=== PATIENT | female | born 1945 | race Caucasian/White ===

== ENCOUNTER 2021-01-21 14:37 | Inpatient (IN) | payer MEDICARE ==
--- NOTE | 2021-01-21 15:14 | ED ---
Chest Pain HPI - General Chief Complaint: Chest Pain Stated Complaint: chest pain Time Seen by Provider: 01/21/21 14:39 Source: patient, EMS Mode of arrival: EMS Limitations: no limitations - History of Present Illness Initial Comments: Patient complains of chest pain. Pain is in the middle of the chest. It radiates the left side and left arm. She has no shortness of breath. She has no palpitations. She wasn't doing this began. She denies any sick contacts or travel. She has no focal weakness. She has no swelling in the arms or legs. She has no lightheadedness or dizziness. - Related Data Allergies Allergy/AdvReac Type Severity Reaction Status Date / Time No Known Allergies Allergy Verified 01/21/21 14:58 Review of Systems ROS Statement: Those systems with pertinent positive or pertinent negative responses have been documented in the HPI. ROS Other: All systems not noted in ROS Statement are negative. EKG Findings - EKG Comments: EKG Findings:: Twelve-lead EKG shows ventricular rate 81 bpm, normal FL interval and QRS complexes, no ST elevation or depression, interpreted by me as normal sinus rhythm. Past Medical History Past Medical History: Cancer Additional Past Medical History / Comment(s): Colostomy bag with removal History of Any Multi-Drug Resistant Organisms: None Reported Past Surgical History: Breast Surgery, Cholecystectomy, Orthopedic Surgery Past Psychological History: No Psychological Hx Reported Smoking Status: Never smoker Past Alcohol Use History: None Reported General Exam Limitations: no limitations General appearance: alert, in no apparent distress Head exam: Present: atraumatic, normocephalic, normal inspection Eye exam: Present: normal appearance, PERRL, EOMI. Absent: scleral icterus, conjunctival injection, periorbital swelling ENT exam: Present: normal exam, mucous membranes moist Neck exam: Present: normal inspection. Absent: tenderness, meningismus, lymphadenopathy Respiratory exam: Present: normal lung sounds bilaterally. Absent: respiratory distress, wheezes, rales, rhonchi, stridor Cardiovascular Exam: Present: regular rate, normal rhythm, normal heart sounds. Absent: systolic murmur, diastolic murmur, rubs, gallop, clicks GI/Abdominal exam: Present: soft, normal bowel sounds. Absent: distended, tenderness, guarding, rebound, rigid Extremities exam: Present: normal inspection, full ROM, normal capillary refill. Absent: tenderness, pedal edema, joint swelling, calf tenderness Back exam: Present: normal inspection Neurological exam: Present: alert, oriented X3, CN II-XII intact Psychiatric exam: Present: normal affect, normal mood Skin exam: Present: warm, dry, intact, normal color. Absent: rash Course Vital Signs 01/21/21 14:46 Temperature 98.2 F Pulse Rate 79 Respiratory 18 Rate Blood Pressure 139/68 O2 Sat by Pulse 96 Oximetry Chest Pain MDM - Core Measures AMI Core Measures Followed: Yes - MDM Patient presents with chest pain. She does have an elevated troponin. I will order IV heparin. I consult to cardiology. She will be admitted to the hospital. Critical Care Time Critical Care Time: Yes Total Critical Care Time: 35 Disposition Clinical Impression: Acute non-ST elevation myocardial infarction (NSTEMI) Disposition: ADMITTED IP TO THIS HOSP Condition: Fair Is patient prescribed a controlled substance at d/c from ED?: No Referrals: Jerry Torre DO [Primary Care Provider] - 1-2 days
[2021-01-21 15:17] LABS: Basophils % (A) 0 %; Eosinophils # (A) 0.1 k/uL (0-0.7); Eosinophils % (A) 1 %; HGB 12.3 gm/dL (11.4-16.0); Lymphocytes # (A) 0.9 k/uL (1.0-4.8); Lymphocytes % (A) 19 %; MCH 28.7 pg (25.0-35.0); MCHC 35.2 g/dL (31.0-37.0); MCV 81.5 fL (80.0-100.0); Mean Platelet Volume 7.7; Monocytes # (A) 0.4 k/uL (0-1.0); Monocytes % (A) 9 %; Neutrophils # (A) 3.2 k/uL (1.3-7.7); Neutrophils % (A) 68 %; Platelet Count 184 k/uL (150-450); RBC 4.29 m/uL (3.80-5.40); RDW 12.4 % (11.5-15.5); WBC 4.7 k/uL (3.8-10.6)
[2021-01-21 15:25] LABS: Albumin 3.7 g/dL (3.5-5.0); Calcium 9.4 mg/dL (8.4-10.2); Magnesium 2.1 mg/dL (1.6-2.3); Potassium 4.1 mmol/L (3.5-5.1); Total Bilirubin 0.5 mg/dL (0.2-1.3); Total Protein 6.3 g/dL (6.3-8.2)
[2021-01-21 15:36] LABS: Prothrombin Time 10.3 sec (9.0-12.0)
[2021-01-21] MEDS ORDERED: HEPARIN SODIUM 1,000 UN/ML (10ML VL) IV ONE (15:56)
[2021-01-21] MEDS ORDERED: HEPARIN SODIUM 1,000 UN/ML (10ML VL) IV PRN (15:56)
[2021-01-21] MEDS ORDERED: LORazepam 2 MG/ML INJ IV PRN (15:57)
[2021-01-21] MEDS ORDERED: TEMAZEPAM 15 MG CAP PO PRN (15:57)
[2021-01-21] MEDS ORDERED: ONDANSETRON 4 MG/2 ML VIAL IVP PRN (15:57)
[2021-01-21] MEDS ORDERED: NALOXONE 0.4 MG/ML 1 ML VIAL IV PRN (15:57)
--- NOTE | 2021-01-21 15:59 | XR ---
EXAMINATION TYPE: XR chest 2V DATE OF EXAM: 01/21/2021 COMPARISON: None HISTORY: 75-year-old female with chest pain TECHNIQUE: PA and lateral views FINDINGS: Heart normal size. Atherosclerotic arch calcifications. Mild interstitial prominence has a chronic ap pearance. No consolidation or pleural effusion. IMPRESSION: Chronic appearing changes. No definite acute process.
[2021-01-21 16:09] LABS: Partial Thromboplastin Time 20.5 sec (22.0-30.0)
[2021-01-21] MEDS: HEPARIN SOD,PORK IN 0.45% NACL 25,000 UNIT in 0.45% NACL 1 250ML.BAG IV SCH (16:38)
[2021-01-21] MEDS: NITROGLYCERIN SL TABS 0.4 MG TAB SUBLINGUAL PRN ×3 (18:30→19:50)
[2021-01-21] MEDS ORDERED: MELATONIN 5 MG TABLET PO PRN (19:14)
[2021-01-21] MEDS: METOPROLOL TARTRATE 25 MG TAB PO SCH (19:57)
[2021-01-21] MEDS: amLODIPine 5 MG TAB PO SCH (19:57)
[2021-01-21] MEDS: FAMOTIDINE 20 MG/2 ML VIAL IV SCH (19:57)
[2021-01-21] MEDS: MORPHINE SULFATE 4 MG/ML SYRINGE IV PRN (19:58)
[2021-01-21] MEDS ORDERED: ACETAMINOPHEN TAB 325 MG TAB PO PRN (20:01)
[2021-01-21] MEDS: NITROGLYCERIN-D5W PMX 50 MG in DEXTROSE/WATER 1 250ML.BAG IV SCH (20:07)
[2021-01-21] MEDS: ATORVASTATIN 40 MG TAB PO SCH (21:44)
[2021-01-21] MEDS: ASPIRIN 81 MG PO SCH (21:45)
[2021-01-21] MEDS ORDERED: AMITRIPTYLINE HCL 10 MG TAB PO SCH (22:00)
[2021-01-22 03:53] LABS: Basophils % (A) 0 %; Eosinophils # (A) 0.1 k/uL (0-0.7); Eosinophils % (A) 2 %; HCT 33.1 % (34.0-46.0); HGB 11.2 gm/dL (11.4-16.0); Lymphocytes # (A) 1.3 k/uL (1.0-4.8); Lymphocytes % (A) 28 %; MCH 28.7 pg (25.0-35.0); MCHC 33.9 g/dL (31.0-37.0); MCV 84.6 fL (80.0-100.0); Mean Platelet Volume 7.7; Monocytes # (A) 0.4 k/uL (0-1.0); Monocytes % (A) 8 %; Neutrophils # (A) 2.7 k/uL (1.3-7.7); Neutrophils % (A) 59 %; Platelet Count 175 k/uL (150-450); RBC 3.91 m/uL (3.80-5.40); RDW 12.7 % (11.5-15.5); WBC 4.6 k/uL (3.8-10.6)
[2021-01-22 04:13] LABS: INR 0.9 (<1.2); Partial Thromboplastin Time 39.6 sec (22.0-30.0); Prothrombin Time 10.2 sec (9.0-12.0)
[2021-01-22 08:16] LABS: Potassium 4.1 mmol/L (3.5-5.1)
[2021-01-22] MEDS ORDERED: ALPRAZolam 0.5 MG TAB PO PRN (08:49)
[2021-01-22] MEDS ORDERED: ALPRAZolam 0.25 MG TAB PO PRN (08:49)
[2021-01-22] MEDS ORDERED: SODIUM CHLORIDE 0.9% 1,000 ML in EMPTY BAG 1 BAG IV ONE (08:49)
[2021-01-22] MEDS: MORPHINE SULFATE 4 MG/ML SYRINGE IV PRN ×3 (09:06→23:19)
[2021-01-22] MEDS: FAMOTIDINE 20 MG/2 ML VIAL IV SCH (09:06)
--- NOTE | 2021-01-22 09:07 | P.CRDCN ---
History of Present Illness History of present illness: HISTORY OF PRESENTING ILLNESS This is a pleasant 75-year-old female past medical history significant for hypertension, hyperlipidemia, former nicotine dependence. 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 We have been asked to see in consultation for chest pain and elevated troponin. Patient is seen and examined at bedside. She started to have chest pain 5 days ago. Located in anterior middle of chest. 01/29. Radiating to her left side rib, left arm and left shoulder. Associated shortness of breath and diaphoresis. At home she felt as if it was getting worse with food, however it did not resolve. Her chest pain has progressively gotten worse with intensity over the past 5 days and decided to present to the emergency department. Aggravating factors include activity and/or exertion. Alleviating factors include nitroglyerin. She states at this time just walking to/from the bathroom she has increased chest pain and shortness of breath with exertion. Denies nausea, vomiting, palpitations, lightheaded, dizziness, or syncope. She denies symptoms of orthopnea or PND. She is a former smoker. Denies alcohol use. She denies history of NM, stroke, diabetes, or coronary artery disease. Family history includes father had atrial fibrillation and congestive heart failure in the 70s. She states she has had a cardiac work up before including a stress test but this was many years ago, at the time she was told it was normal. On admission, patient placed on IV heparin drip, aspirin, and Nitroglycerin drip. DIAGNOSTICS EKG reveals sinus rhythm, HR 81, LBBB. EKG this morning sinus rhythm HR 80, LBBB, some ST depression in leads I, V4-V6. No prior EKG to compare. Telemetry tracings indicate sinus rhythm HR 60s Chest xray atherosclerotic aortic changes, chronic changes Laboratory reviewed, troponin 0.9, 0.6, 0.5, proBNP 3440, sodium 138, potassium 4.1, BUN 22, serum 0.03, magnesium 2.1, CBC unremarkable REVIEW OF SYSTEMS At the time of my exam: CONSTITUTIONAL: Denies fever or chills. +diaphoresis CARDIOVASCULAR: + chest pain, + shortness of breath, Denies orthopnea, PND or palpitations. RESPIRATORY: Denies cough. GASTROINTESTINAL: Denies abdominal pain, diarrhea, constipation, nausea or vomiting. MUSCULOSKELETAL: Denies myalgias. NEUROLOGIC: Denies numbness, tingling, headacbe or weakness. ENDOCRINE: Denies fatigue, weight change, polydipsia or polyurina. GENITOURINARY: Denies burning, hematuria or urgency with micturation. HEMATOLOGIC: Denies history of anemia or bleeding. PHYSICAL EXAMINATION Blood pressure 155/76 heart rate 78 afebrile and maintaining oxygen saturation on room air CONSTITUTIONAL: Currently having chest pain shortness of breath and diaphoresis HEENT: Head is normocephalic. Pupils are equal, round. Sclerae anicteric. Mucous membranes of the mouth are moist. No JVD. No carotid bruit. CHEST EXAMINATION: Lungs are clear to auscultation. No chest wall tenderness is noted on palpation or with deep breathing. HEART EXAMINATION: Regular rate and rhythm. S1, S2 heard. No murmurs, gallops or rub. ABDOMEN: Soft, nontender. Positive bowel sounds. EXTREMITIES: 2+ peripheral pulses, no lower extremity edema and no calf tenderness. SKIN: intact NEUROLOGIC EXAMINATION: Patient is awake, alert and oriented x3. ASSESSMENT NSTEMI Left bundle branch block, unclear if new or had prior. History of hypertension Hyperlipidemia Former tobacco smoker PLAN Obtain 2D echocardiogram and doppler study to assess cardiac structure and function. At this time we recommend proceeding with cardiac catheterization I have discussed the risks, benefits and alternative therapies for the above- mentioned procedure and for both sedation/analgesia as well as necessary blood product administration, if indicated, as they pertain to this patient. The p atient has indicated understanding and acceptance of the risks and procedures discussed. Questions have been answered appropriately and he is agreeable to move forward with the above-stated procedure. Spoke with patient's daughter, Deborah, and updated her on the plan per patient request Continue aspirin, statin, beta maría, and amlodipine Further recommendations based on clinical course. Nurse Practitioner note has been reviewed, I agree with a documented findings and plan of care. Patient was seen and examined. Past Medical History Past Medical History: Cancer, Hyperlipidemia, Hypertension, Osteoarthritis (OA) Additional Past Medical History / Comment(s): Colostomy bag with removal History of Any Multi-Drug Resistant Organisms: None Reported Past Surgical History: Bladder Surgery, Bowel Resection, Breast Surgery, Cholecystectomy, Hysterectomy, Orthopedic Surgery, Tubal Ligation Additional Past Surgical History / Comment(s): cataractsurgery x2 with lens implants, masectomy on right breast, bowel resection with colostomy and reversal, bladder suspension, left knee replacement, skin cancer removed from right ear Past Anesthesia/Blood Transfusion Reactions: No Reported Reaction Smoking Status: Former smoker - Past Family History Father Family Medical History: AFIB, Congestive Heart Failure (CHF) Mother Family Medical History: Cancer Additional Family Medical History / Comment(s): breast cancer with mets Medications and Allergies Home Medications Medication Instructions Recorded Confirmed Type ALPRAZolam [Xanax] 1 mg PO DAILY@0800,219901/21/21 01/21/21 History Amitriptyline HCl [Elavil] 20 mg PO HS@219901/21/21 01/21/21 History Cholecalciferol [Vitamin D3 (25 50 mcg PO DAILY@79901/21/21 01/21/21 History Mcg = 1000 Iu)] Rosuvastatin [Crestor] 20 mg PO HS@219901/21/21 01/21/21 History Sertraline [Zoloft] 100 mg PO DAILY@79901/21/21 01/21/21 History amLODIPine [Norvasc] 5 mg PO HS@219901/21/21 01/21/21 History buPROPion [Wellbutrin] 75 mg PO DAILY@79901/21/21 01/21/21 History Allergies Allergy/AdvReac Type Severity Reaction Status Date / Time No Known Allergies Allergy Verified 01/21/21 16:53 Physical Exam Vitals: Vital Signs Temp Pulse Pulse Resp BP BP Pulse Ox 01/22/21 04:00 60 15 114/58 94 L 01/22/21 00:00 98.3 F 66 17 98/54 97 01/21/21 20:30 86 149/64 01/21/21 20:00 98 19 149/64 98 01/21/21 19:55 90 16 165/66 95 01/21/21 19:41 98.2 F 95 19 192/67 97 01/21/21 18:50 95 19 124/61 96 01/21/21 18:45 98.3 F 83 18 157/73 96 01/21/21 18:40 96 19 161/69 96 01/21/21 17:45 83 18 01/21/21 16:39 78 16 132/57 96 01/21/21 16:00 75 18 96 01/21/21 15:30 148/57 95 01/21/21 15:00 72 17 139/68 96 01/21/21 14:46 98.2 F 79 18 139/68 96 01/21/21 14:45 96 Intake and Output 01/21/21 01/22/21 01/22/21 22:59 06:59 14:59 Intake Total 224.706 74.388 Balance 224.706 74.388 Intake: Intake, IV Titration 44.706 74.388 Amount Heparin Sod,Pork in 0.45% 44.706 74.388 NaCl 25,000 unit In 0.45 % NaCl 1 250ml.bag @ 12 UNITS/KG/HR 8.709 mls/hr IV .Q24H [facility] Rx#: [id number] Oral 180 Other: # Voids 2 Weight 72.575 kg Results 01/22/21 03:36 01/22/21 07:29 Cardiac Enzymes 01/21/21 01/21/21 01/21/21 Range/Units 15:06 15:06 19:00 AST 39 H (14-36) U/L Troponin I 0.967 H* 0.608 H* (0.000-0.034) ng/mL 01/21/21 Range/Units 20:56 AST (14-36) U/L Troponin I 0.536 H* (0.000-0.034) ng/mL Coagulation 01/21/21 01/21/21 01/22/21 Range/Units 15:06 20:56 03:36 PT 10.3 10.2 (9.0-12.0) sec APTT 20.5 L 31.9 H 39.6 H (22.0-30.0) sec CBC 01/21/21 01/22/21 Range/Units 15:06 03:36 WBC 4.7 4.6 (3.8-10.6) k/uL RBC 4.29 3.91 (3.80-5.40) m/uL Hgb 12.3 11.2 L (11.4-16.0) gm/dL Hct 35.0 33.1 L (34.0-46.0) % Plt Count 184 175 (150-450) k/uL Comprehensive Metabolic Panel 01/21/21 Range/Units 15:06 Sodium 138 (137-145) mmol/L Potassium 4.1 (3.5-5.1) mmol/L Chloride 109 H (98-107) mmol/L Carbon Dioxide 21 L (22-30) mmol/L BUN 22 H (7-17) mg/dL Creatinine 1.08 H (0.52-1.04) mg/dL Glucose 116 H (74-99) mg/dL Calcium 9.4 (8.4-10.2) mg/dL AST 39 H (14-36) U/L ALT 24 (4-34) U/L Alkaline Phosphatase 66 (38-126) U/L Total Protein 6.3 (6.3-8.2) g/dL Albumin 3.7 (3.5-5.0) g/dL Current Medications Generic Name Dose Route Start Last Admin Trade Name Freq PRN Reason Stop Dose Admin Acetaminophen 650 mg 01/21/21 20:01 Acetaminophen Tab 325 Mg Tab PO Q4HR PRN Fever and/ or Pain Alprazolam 1 mg 01/21/21 19:11 Alprazolam 1 Mg Tab PO DAILY@0800,2200 PRN Anxiety Amitriptyline HCl 20 mg 01/21/21 22:00 01/21/21 20:15 Amitriptyline Hcl 10 Mg Tab PO 20 mg HS@2200 JAZ Administration Amlodipine Besylate 5 mg 01/21/21 22:00 01/21/21 19:57 Amlodipine 5 Mg Tab PO 5 mg HS@2200 JAZ Administration Aspirin 81 mg 01/21/21 20:30 01/21/21 21:45 Aspirin 81 Mg PO 81 mg DAILY JAZ Administration Atorvastatin Calcium 40 mg 01/21/21 20:30 01/21/21 21:44 Atorvastatin 40 Mg Tab PO 40 mg DAILY JAZ Administration Bupropion HCl 75 mg 01/22/21 08:00 Bupropion 75 Mg Tab PO DAILY@0800 JAZ Famotidine 20 mg 01/21/21 21:00 01/21/21 19:57 Famotidine 20 Mg/2 Ml Vial IV 20 mg Q12HR JAZ Administration Heparin Sodium (Porcine) 0 unit 01/21/21 15:56 Heparin Sodium 1,000 Un/Ml (10ml Vl) IV PER PROTOCOL PRN Low PTT Protocol Heparin Sodium/Sodium Chloride 250 mls @ 8.709 mls/hr 01/21/21 16:00 01/22/21 04:36 25,000 unit/ Sodium Chloride IV 17 units/kg/hr .Q24H JAZ 12.338 mls/hr Titration Protocol 12 UNITS/KG/HR Nitroglycerin/Dextrose 50 mg/ 250 mls @ 1.5 mls/hr 01/21/21 20:00 01/21/21 20:07 IV Solution IV 5 mcg/min .Q24H JAZ 1.5 mls/hr Administration Protocol 5 MCG/MIN Melatonin 5 mg 01/21/21 19:14 01/21/21 23:43 Melatonin 5 Mg Tablet PO 5 mg HS PRN Administration Insomnia Metoprolol Tartrate 25 mg 01/21/21 19:50 01/21/21 19:57 Metoprolol Tartrate 25 Mg Tab PO 25 mg BID JAZ Administration Morphine Sulfate 4 mg 01/21/21 15:57 01/21/21 19:58 Morphine Sulfate 4 Mg/Ml Syringe IV 4 mg Q4HR PRN Administration Severe Pain Naloxone HCl 0.2 mg 01/21/21 15:57 Naloxone 0.4 Mg/Ml 1 Ml Vial IV Q2M PRN Opioid Reversal Nitroglycerin 0.4 mg 01/21/21 18:25 01/21/21 19:50 Nitroglycerin Sl Tabs 0.4 Mg Tab SUBLINGUAL 0.4 mg Q5M PRN Administration Chest Pain Ondansetron HCl 4 mg 01/21/21 15:57 Ondansetron 4 Mg/2 Ml Vial IVP Q8HR PRN Nausea And Vomiting Sertraline HCl 100 mg 01/22/21 08:00 Sertraline 100 Mg Tab PO DAILY@0800 [facility] Intake and Output 01/21/21 01/22/21 01/22/21 22:59 06:59 14:59 Intake Total 224.706 74.388 Balance 224.706 74.388 Intake: Intake, IV Titration 44.706 74.388 Amount Heparin Sod,Pork in 0.45% 44.706 74.388 NaCl 25,000 unit In 0.45 % NaCl 1 250ml.bag @ 12 UNITS/KG/HR 8.709 mls/hr IV .Q24H [facility] Rx#: [id number] Oral 180 Other: # Voids 2 Weight 72.575 kg 01/22/21 03:36 01/21/21 15:06
[2021-01-22] MEDS: ASPIRIN 81 MG PO SCH (09:08)
[2021-01-22] MEDS ORDERED: ASPIRIN 325 MG TAB PO STA (09:08)
[2021-01-22] MEDS ORDERED: LIDOCAINE 1% INJ 10MG/ML (20 ML MDV) ONE (10:02)
[2021-01-22] MEDS ORDERED: fentaNYL (PF) 50 MCG/ML 2 ML AMP ONE (10:09)
[2021-01-22] MEDS ORDERED: NITROGLYCERIN-D5W PMX 50 MG in DEXTROSE/WATER 1 250ML.BAG IV ONE (10:10)
[2021-01-22] MEDS ORDERED: LIDOCAINE 1% INJ 10MG/ML (20 ML MDV) SQ ONE (10:15)
[2021-01-22] MEDS ORDERED: MIDAZOLAM 2 MG/2 ML VIAL IV ONE (10:17)
[2021-01-22] MEDS ORDERED: IV FLUID CONTINUATION 900 ML IV ONE (10:18)
[2021-01-22] MEDS ORDERED: fentaNYL (PF) 50 MCG/ML 2 ML AMP IV ONE (10:18)
[2021-01-22] MEDS ORDERED: FUROSEMIDE 10 MG/ML 4 ML VIAL ONE (10:23)
[2021-01-22] MEDS ORDERED: FUROSEMIDE 10 MG/ML 4 ML VIAL IV ONE (10:26)
[2021-01-22] MEDS ORDERED: RX INFO: IV CONTRAST WAS GIVEN 1 EACH MISC MISCELLANE PRN (10:40)
[2021-01-22] MEDS ORDERED: IOPAMIDOL-370 125ML BTL INJ ONE (10:44)
--- NOTE | 2021-01-22 11:16 | P.CARDCATH ---
Date of Procedure: 01/22/21 Postoperative Diagnosis: Non-STEMI and CHF Procedure(s) Performed: Left heart catheterization without left ventriculography Description of Procedure: HISTORY: This is a 75-year-old female with history of hypertension, hypercholesterolemia who was admitted to the hospital with complaints of chest pain and positive troponins suggestive of unstable angina and non-STEMI. Patient continued to have exertional shortness of breath and chest pain. She is advised to have a cardiac catheterization for definitive diagnosis. CONSENT:I have discussed the risks, benefits and alternative therapies for the above-mentioned procedure and for both sedation/analgesia as well as necessary blood product administration, if indicated, as they pertain to this patient. The patient has indicated understanding and acceptance of the risks and procedures discussed. PROCEDURE: Patient was brought to the lab in a fasting state. Patient was given some IV sedation. The right groin is infiltrated with lidocaine and right femoral artery was entered using Seldinger technique. A 6-Upper Sorbian catheter was left in place and selective coronary arteriography and left ventriculography was performed. Patient tolerated the procedure well. Femoral angiogram was performed and Angio-Seal was applied for hemostasis. No immediate complications were noted and patient was transferred to [facility] in a stable condition Conscious Sedation: Versed 0.5mg Fentanyl 25 g Duration 27minutes HEMODYNAMICS: The aortic pressure is about 170/90. Left ventricle end- diastolic pressure is about 25 SELECTIVE CORONARY ARTERIOGRAPHY: LEFT MAIN: Eccentric 60-70% stenosis of the left main is calcified THE LEFT ANTERIOR DESCENDING CORONARY ARTERY: Moderate caliber vessel with mild diffuse disease without any critical lesions THE LEFT CIRCUMFLEX AND IS CORONARY ARTERY: Moderate caliber vessel with about 80-90% eccentric lesion in the proximal portion THE RIGHT CORONARY ARTERY: There is ostial lesion of the dampening of the pressures upon engagement. Could be about 50-60% is also about 60% stenosis in mid RCA LEFT VENTRICULOGRAPHY: Not performed FINAL IMPRESSION: Critical left main disease and also proximal circumflex lesion. 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 Elevated end-diastolic pressures PLAN: Surgical consult for urgent coronary bypass surgery. Continue maximal medical therapy PROGNOSIS: Guarded
--- NOTE | 2021-01-22 11:55 | ECHOF ---
Referral Reason:Rule out heart disease MEASUREMENTS -------- HEIGHT: 149.9 cm WEIGHT: 72.6 kg BP: 114/58 RVIDd: 3.4 cm (< 3.3) IVSd: 1.4 cm (0.6 - 1.1) LVIDd: 3.5 cm (3.9 - 5.3) LVPWd: 1.4 cm (0.6 - 1.1) IVSs: 1.9 cm LVIDs: 2.3 cm LVPWs: 1.6 cm LA Diam: 3.5 cm (2.7 - 3.8) LAESV Index (A-L): 20.97 ml/m Ao Diam: 2.6 cm (2.0 - 3.7) AV Cusp: 1.8 cm (1.5 - 2.6) MV EXCURSION: 12.364 mm (> 18.000) MV EF SLOPE: 26 mm/s (70 - 150) EPSS: 0.4 cm MV E Thomas: 1.13 m/s MV DecT: 220 ms MV A Thomas: 1.24 m/s MV E/A Ratio: 0.91 RAP: 5.00 mmHg RVSP: 53.65 mmHg FINDINGS -------- Sinus rhythm. This was a technically adequate study. The left ventricular size is normal. There is moderate concentric left ventricular hypertrophy. O verall left ventricular systolic function is normal with, an EF between 55 - 60 %. The right ventricle is mildly enlarged. Normal LA size by volume 22+/-6 ml/m2. The right atrial size is normal. Lipomatous Hypertrophy of the atrial septum is present There is mild aortic valve sclerosis. Mild mitral annular calcification present. Mild mitral regurgitation is present. The tricuspid valve appears structurally normal. Mild tricuspid regurgitation present. There is m oderate pulmonary hypertension. The right ventricular systolic pressure, as measured by Doppler, is 53.65mmHg. The pulmonic valve was not well visualized. The aortic root size is normal. Normal inferior vena cava with normal inspiratory collapse consistent with estimated right atrial pre ssure of 5 mmHg. There is no pericardial effusion. CONCLUSIONS -------- 1. There is moderate concentric left ventricular hypertrophy. 2. Overall left ventricular systolic function is normal with, an EF between 55 - 60 %. 3. The right ventricle is mildly enlarged. 4. Normal LA size by volume 22+/-6 ml/m2. 5. Lipomatous Hypertrophy of the atrial septum is present 6. There is mild aortic valve sclerosis. 7. Mild mitral annular calcification present. 8. Mild mitral regurgitation is present. 9. Mild tricuspid regurgitation present. 10. There is moderate pulmonary hypertension. 11. There is no pericardial effusion. FOOD OPERATIONS MANAGER: Brea Navarro RDCS
--- NOTE | 2021-01-22 12:26 | P.GSCN ---
<Desiree Rooney - Last Filed: 01/22/21 12:09> History of Present Illness Consult date: 01/22/21 Reason for Consult: Coronary artery disease with left main disease Requesting physician: Merissa Solano History of present illness: This is a 75-year-old female patient who follows on an outpatient basis with Dr. Florentino for primary care. She has a previous medical history of hypertension, hyperlipidemia, breast cancer status post right mastectomy with chemotherapy approximately 25 years ago, colostomy for bowel rest status post reversal, previous tobacco dependence, and remote history of pneumonia. She reports a 5 day history of burning-like chest pain in the center of her chest which occurred after eating. She denies any shortness of breath, diaphoresis, nausea, vomiting. She does endorse low-grade fever of 99.6. She did try Tums and milk without any relief. The pain continued to get worse so she reported to [facility] emergency room for evaluation and treatment. Troponins were elevated, EKG demonstrated sinus rhythm with ST changes and the patient was ruled in for non-STEMI. She was admitted for further cardiac workup with consultation placed to cardiology. She was recommended to undergo heart catheterization which was completed today and which demonstrated left main coronary artery stenosis 60-70%, proximal circumflex stenosis 80-90%, proximal RCA stenosis 50-60% with mid RCA stenosis 60% and elevated end diastolic pressure. Due to her left main disease consultation was placed to cardiothoracic surgery for surgical revascularization recommendations. Of note transthoracic echocardiogram reports normal left ventricular function with EF 55-60%, mild mitral regurgitation, mild tricuspid regurgitation, and moderate pulmonary hypertension with RVSP 53.65. Review of Systems Review of systems was completed and was negative except as noted - Constitutional Reports fever - Cardiovascular Reports as per HPI, Reports chest pain Past Medical History Past Medical History: Cancer, Hyperlipidemia, Hypertension, Osteoarthritis (OA) History of Any Multi-Drug Resistant Organisms: None Reported Past Surgical History: Appendectomy, Bladder Surgery, Bowel Resection, Breast Surgery, Cholecystectomy, Hysterectomy, Orthopedic Surgery, Tubal Ligation Additional Past Surgical History / Comment(s): cataractsurgery x2 with lens implants, masectomy on right breast, bowel resection with colostomy and reversal, bladder suspension, left knee replacement, skin cancer removed from right ear Past Anesthesia/Blood Transfusion Reactions: No Reported Reaction Past Psychological History: Depression Smoking Status: Former smoker Past Alcohol Use History: None Reported Past Drug Use History: None Reported Additional Drug Use History / Comment(s): Quit smoking 40 years ago; vaccinated against Covid with Pfizer vaccine, last dose June 2020 - Past Family History Father Family Medical History: AFIB, Congestive Heart Failure (CHF) Mother Family Medical History: Cancer Additional Family Medical History / Comment(s): breast cancer with mets Medications and Allergies Home Medications Medication Instructions Recorded Confirmed Type ALPRAZolam [Xanax] 1 mg PO DAILY@0800,2200 01/21/21 01/21/21 History Amitriptyline HCl [Elavil] 20 mg PO DAILY 01/21/21 01/22/21 History Cholecalciferol [Vitamin D3 (25 50 mcg PO DAILY@79901/21/21 01/21/21 History Mcg = 1000 Iu)] Rosuvastatin [Crestor] 20 mg PO HS@0 01/21/21 01/21/21 History Sertraline [Zoloft] 100 mg PO DAILY@79901/21/21 01/21/21 History amLODIPine [Norvasc] 5 mg PO HS@219901/21/21 01/21/21 History buPROPion [Wellbutrin] 75 mg PO DAILY@79901/21/21 01/21/21 History Allergies Allergy/AdvReac Type Severity Reaction Status Date / Time No Known Allergies Allergy Verified 01/21/21 16:53 Surgical - Exam Vital Signs Pulse Ox 96 01/21/21 14:45 CONSTITUTIONAL: Awake and alert, appears comfortable, cooperative, well-developed, well-nourished, no pain, no acute distress EYES: Pupils equal, round, reactive to light, normal ocular movement ENT: Moist mucous membranes without oral lesions present NECK: No masses, no bruits, trachea midline RESPIRATORY: Lungs sounds clear to auscultation bilaterally. Respirations even, nonlabored. Currently on 2 L nasal cannula with oxygen saturation 93%. Strong cough. No chest wall deformities. No clubbing or cyanosis present CARDIOVASCULAR: S1, S2 present. Regular rate and rhythm, sinus rhythm on telemetry. Palpable peripheral pulses bilaterally except weakly palpable pulse to the right lower extremity. No edema present. No calf pain or tenderness noted. No significant lower extremity varicosities noted. GASTROINTESTINAL: Abdomen soft, nontender, nondistended without masses or organomegaly noted. There is no rebound or guarding present. Active bowel sounds present 4 quadrants. GENITOURINARY: Deferred INTEGUMENTARY: Skin is warm and dry with evidence of good perfusion. Right femoral artery heart catheterization site well approximated without redness or drainage NEUROLOGIC: Cranial nerves II through XII intact, normal coordination, no obvious motor or sensory deficits, speech is normal MUSKULOSKELETAL: Able to move all extremities, strength equal bilaterally, normal posture PSYCHIATRIC: Alert and oriented to person place and time, appropriate affect, intact judgment and insight Results - Labs 01/22/21 03:36 01/22/21 07:29 Abnormal Lab Results - Last 24 Hours (Table) 01/21/21 01/21/21 01/21/21 Range/Units 15:06 15:06 15:06 Hgb (11.4-16.0) gm/dL Hct (34.0-46.0) % Lymphocytes # 0.9 L (1.0-4.8) k/uL APTT 20.5 L (22.0-30.0) sec Chloride 109 H (98-107) mmol/L Carbon Dioxide 21 L (22-30) mmol/L BUN 22 H (7-17) mg/dL Creatinine 1.08 H (0.52-1.04) mg/dL Glucose 116 H (74-99) mg/dL AST 39 H (14-36) U/L Troponin I (0.000-0.034) ng/mL 01/21/21 01/21/21 01/21/21 Range/Units 15:06 19:00 20:56 Hgb (11.4-16.0) gm/dL Hct (34.0-46.0) % Lymphocytes # (1.0-4.8) k/uL APTT 31.9 H (22.0-30.0) sec Chloride (98-107) mmol/L Carbon Dioxide (22-30) mmol/L BUN (7-17) mg/dL Creatinine (0.52-1.04) mg/dL Glucose (74-99) mg/dL AST (14-36) U/L Troponin I 0.967 H* 0.608 H* (0.000-0.034) ng/mL 01/21/21 01/22/21 01/22/21 Range/Units 20:56 03:36 03:36 Hgb 11.2 L (11.4-16.0) gm/dL Hct 33.1 L (34.0-46.0) % Lymphocytes # (1.0-4.8) k/uL APTT 39.6 H (22.0-30.0) sec Chloride (98-107) mmol/L Carbon Dioxide (22-30) mmol/L BUN (7-17) mg/dL Creatinine (0.52-1.04) mg/dL Glucose (74-99) mg/dL AST (14-36) U/L Troponin I 0.536 H* (0.000-0.034) ng/mL 01/22/21 01/22/21 Range/Units 07:29 09:24 Hgb (11.4-16.0) gm/dL Hct (34.0-46.0) % Lymphocytes # (1.0-4.8) k/uL APTT 44.5 H (22.0-30.0) sec Chloride 113 H (98-107) mmol/L Carbon Dioxide 19 L (22-30) mmol/L BUN 22 H (7-17) mg/dL Creatinine (0.52-1.04) mg/dL Glucose 123 H (74-99) mg/dL AST (14-36) U/L Troponin I (0.000-0.034) ng/mL Diabetes panel 01/21/21 01/22/21 Range/Units 15:06 07:29 Sodium 138 138 (137-145) mmol/L Potassium 4.1 4.1 (3.5-5.1) mmol/L Chloride 109 H 113 H (98-107) mmol/L Carbon Dioxide 21 L 19 L (22-30) mmol/L BUN 22 H 22 H (7-17) mg/dL Creatinine 1.08 H 1.03 (0.52-1.04) mg/dL Glucose 116 H 123 H (74-99) mg/dL Calcium 9.4 9.0 (8.4-10.2) mg/dL AST 39 H (14-36) U/L ALT 24 (4-34) U/L Alkaline Phosphatase 66 (38-126) U/L Total Protein 6.3 (6.3-8.2) g/dL Albumin 3.7 (3.5-5.0) g/dL Calcium panel 01/21/21 01/22/21 Range/Units 15:06 07:29 Calcium 9.4 9.0 (8.4-10.2) mg/dL Albumin 3.7 (3.5-5.0) g/dL Pituitary panel 01/21/21 01/22/21 Range/Units 15:06 07:29 Sodium 138 138 (137-145) mmol/L Potassium 4.1 4.1 (3.5-5.1) mmol/L Chloride 109 H 113 H (98-107) mmol/L Carbon Dioxide 21 L 19 L (22-30) mmol/L BUN 22 H 22 H (7-17) mg/dL Creatinine 1.08 H 1.03 (0.52-1.04) mg/dL Glucose 116 H 123 H (74-99) mg/dL Calcium 9.4 9.0 (8.4-10.2) mg/dL Adrenal panel 01/21/21 01/22/21 Range/Units 15:06 07:29 Sodium 138 138 (137-145) mmol/L Potassium 4.1 4.1 (3.5-5.1) mmol/L Chloride 109 H 113 H (98-107) mmol/L Carbon Dioxide 21 L 19 L (22-30) mmol/L BUN 22 H 22 H (7-17) mg/dL Creatinine 1.08 H 1.03 (0.52-1.04) mg/dL Glucose 116 H 123 H (74-99) mg/dL Calcium 9.4 9.0 (8.4-10.2) mg/dL Total Bilirubin 0.5 (0.2-1.3) mg/dL AST 39 H (14-36) U/L ALT 24 (4-34) U/L Alkaline Phosphatase 66 (38-126) U/L Total Protein 6.3 (6.3-8.2) g/dL Albumin 3.7 (3.5-5.0) g/dL - Imaging Chest x-ray: report reviewed, image reviewed EKG: image reviewed Additional studies: Heart catheterization and echocardiogram films reviewed Assessment and Plan Assessment: 1. Coronary artery disease with left main disease 2. History of hypertension 3. Hyperlipidemia, treated 4. Breast cancer status post right mastectomy with chemotherapy approximately 25 years ago 5. Colostomy for bowel rest status post reversal 6. Previous tobacco dependence 7. Remote history of pneumonia Plan: The patient was seen and examined at the bedside in the intensive care unit. Chart/diagnostics reviewed. The case was discussed with Dr. Ring who will be here today to evaluate the patient. The usual perioperative course of coronary artery bypass surgery was discussed in detail with the patient, risks and benefits were reviewed, all questions were answered. Patient is agreeable to consider surgery. Preoperative testing was initiated. Once completed we will calculate STS risk score and discuss with the patient. Once the patient is ambulatory we will complete a 5 m walk test. Recommend continuing statin, adding aspirin, beta maría therapy. Medical management of the comorbidities per primary care service. More recommendations to follow once patient has been seen by Dr. Ring and all preoperative testing has been completed. Thank you Dr. Solano for this consult. We look forward to working with you in the care of your patient Time with Patient: Greater than 30 <Denys Ring - Last Filed: 01/22/21 15:59> Surgical - Exam Vital Signs Pulse Ox 96 01/21/21 14:45 Results - Labs 01/22/21 03:36 01/22/21 07:29 Abnormal Lab Results - Last 24 Hours (Table) 01/21/21 01/21/21 01/21/21 Range/Units 15:06 19:00 20:56 Hgb (11.4-16.0) gm/dL Hct (34.0-46.0) % APTT 20.5 L 31.9 H (22.0-30.0) sec Chloride (98-107) mmol/L Carbon Dioxide (22-30) mmol/L BUN (7-17) mg/dL Glucose (74-99) mg/dL Troponin I 0.608 H* (0.000-0.034) ng/mL HDL Cholesterol (40.0-60.0) mg/dL TSH (0.465-4.680) mIU/L Free T4 (0.78-2.19) ng/dL 01/21/21 01/22/21 01/22/21 Range/Units 20:56 03:36 03:36 Hgb 11.2 L (11.4-16.0) gm/dL Hct 33.1 L (34.0-46.0) % APTT 39.6 H (22.0-30.0) sec Chloride (98-107) mmol/L Carbon Dioxide (22-30) mmol/L BUN (7-17) mg/dL Glucose (74-99) mg/dL Troponin I 0.536 H* (0.000-0.034) ng/mL HDL Cholesterol (40.0-60.0) mg/dL TSH (0.465-4.680) mIU/L Free T4 (0.78-2.19) ng/dL 01/22/21 01/22/21 01/22/21 Range/Units 07:29 07:29 07:32 Hgb (11.4-16.0) gm/dL Hct (34.0-46.0) % APTT (22.0-30.0) sec Chloride 113 H (98-107) mmol/L Carbon Dioxide 19 L (22-30) mmol/L BUN 22 H (7-17) mg/dL Glucose 123 H (74-99) mg/dL Troponin I (0.000-0.034) ng/mL HDL Cholesterol 26.0 L (40.0-60.0) mg/dL TSH <0.015 L (0.465-4.680) mIU/L Free T4 5.21 H (0.78-2.19) ng/dL 01/22/21 Range/Units 09:24 Hgb (11.4-16.0) gm/dL Hct (34.0-46.0) % APTT 44.5 H (22.0-30.0) sec Chloride (98-107) mmol/L Carbon Dioxide (22-30) mmol/L BUN (7-17) mg/dL Glucose (74-99) mg/dL Troponin I (0.000-0.034) ng/mL HDL Cholesterol (40.0-60.0) mg/dL TSH (0.465-4.680) mIU/L Free T4 (0.78-2.19) ng/dL Diabetes panel 01/22/21 01/22/21 Range/Units 07:29 07:32 Sodium 138 (137-145) mmol/L Potassium 4.1 (3.5-5.1) mmol/L Chloride 113 H (98-107) mmol/L Carbon Dioxide 19 L (22-30) mmol/L BUN 22 H (7-17) mg/dL Creatinine 1.03 (0.52-1.04) mg/dL Glucose 123 H (74-99) mg/dL Calcium 9.0 (8.4-10.2) mg/dL Triglycerides 146.0 (0.0-149.0) mg/dL HDL Cholesterol 26.0 L (40.0-60.0) mg/dL Thyroid panel 01/22/21 Range/Units 07:29 TSH <0.015 L (0.465-4.680) mIU/L Calcium panel 01/22/21 Range/Units 07:29 Calcium 9.0 (8.4-10.2) mg/dL Pituitary panel 01/22/21 01/22/21 Range/Units 07:29 07:29 Sodium 138 (137-145) mmol/L Potassium 4.1 (3.5-5.1) mmol/L Chloride 113 H (98-107) mmol/L Carbon Dioxide 19 L (22-30) mmol/L BUN 22 H (7-17) mg/dL Creatinine 1.03 (0.52-1.04) mg/dL Glucose 123 H (74-99) mg/dL Calcium 9.0 (8.4-10.2) mg/dL TSH <0.015 L (0.465-4.680) mIU/L Adrenal panel 01/22/21 Range/Units 07:29 Sodium 138 (137-145) mmol/L Potassium 4.1 (3.5-5.1) mmol/L Chloride 113 H (98-107) mmol/L Carbon Dioxide 19 L (22-30) mmol/L BUN 22 H (7-17) mg/dL Creatinine 1.03 (0.52-1.04) mg/dL Glucose 123 H (74-99) mg/dL Calcium 9.0 (8.4-10.2) mg/dL Assessment and Plan Plan: The patient was seen and examined. 75 year old female admitted with chest pain. Workup revealed NSTEMI. She is currently resting comfortably on IV NTG. Cardiac catheterization reveals multi-vessel CAD. A coronary artery bypass was recommended. The risks, benefits, and alternatives to surgery were discussed with the patient. All of her questions were answered. We will complete her pre-operative workup with plans to proceed with surgery later this week.
[2021-01-22 12:34] LABS: Magnesium 2.1 mg/dL (1.6-2.3)
--- NOTE | 2021-01-22 13:21 | P.HPIM ---
History of Present Illness Patient is a pleasant 75-year-old female came in with compensative chest pressure like sensation about a stress 10 in severity on the left side of the chest radiating to the left shoulder along with the diaphoresis or shortness of breath. Patient has a classic chest pain found to have some ST-T wave changes in the leads 1 before to V6. Patient also had mildly elevated troponin because of which patient underwent cardiac catheterization which showed critical left main disease along with the moderate disease in RCA and some disease in the left circumflex as well. Patient had left bundle branch block on the EKG no other EKGs to compare with. Patient is presently on heparin drip and being evaluated for coronary artery bypass grafting at this time. REVIEW OF SYSTEMS: CONSTITUTIONAL: No fever, no malaise, no fatigue. HEENT: No recent visual problems or hearing problems. Denied any sore throat. CARDIOVASCULAR: No orthopnea, PND, no palpitations, no syncope. PULMONARY: No shortness of breath, no cough, no hemoptysis. GASTROINTESTINAL: No diarrhea, no nausea, no vomiting, no abdominal pain. NEUROLOGICAL: No headaches, no weakness, no numbness. HEMATOLOGICAL: Denies any bleeding or petechiae. GENITOURINARY: Denies any burning micturition, frequency, or urgency. MUSCULOSKELETAL/RHEUMATOLOGICAL: Denies any joint pain, swelling, or any muscle pain. ENDOCRINE: Denies any polyuria or polydipsia. The rest of the 14-point review of systems is negative. PHYSICAL EXAMINATION: GENERAL: The patient is alert and oriented x3, not in any acute distress. Well developed, well nourished. HEENT: Pupils are round and equally reacting to light. EOMI. No scleral icterus. No conjunctival pallor. Normocephalic, atraumatic. No pharyngeal erythema. No thyromegaly. CARDIOVASCULAR: S1 and S2 present. No murmurs, rubs, or gallops. PULMONARY: Chest is clear to auscultation, no wheezing or crackles. ABDOMEN: Soft, nontender, nondistended, normoactive bowel sounds. No palpable organomegaly. MUSCULOSKELETAL: No joint swelling or deformity. EXTREMITIES: No cyanosis, clubbing, or pedal edema. NEUROLOGICAL: Gross neurological examination did not reveal any focal deficits. SKIN: No rashes. Assessment and plan -Non-ST elevation myocardial infarction, acute: Patient is status post cardiac catheterization being evaluated for coronary artery bypass grafting because of critical LAD lesion. Patient will be continued on heparin, statin, beta maría, antiplatelet therapy. -Hypertension -Hyperlipidemia -Left bundle-branch block unclear if it's a new lead prior left bundle-branch block DVT prophylaxis: Presently on IV heparin Past Medical History Past Medical History: Cancer, Hyperlipidemia, Hypertension, Osteoarthritis (OA) Additional Past Medical History / Comment(s): Colostomy bag with removal History of Any Multi-Drug Resistant Organisms: None Reported Past Surgical History: Appendectomy, Bladder Surgery, Bowel Resection, Breast Surgery, Cholecystectomy, Hysterectomy, Orthopedic Surgery, Tubal Ligation Additional Past Surgical History / Comment(s): cataractsurgery x2 with lens implants, masectomy on right breast, bowel resection with colostomy and rev ersal, bladder suspension, left knee replacement, skin cancer removed from right ear Past Anesthesia/Blood Transfusion Reactions: No Reported Reaction Past Psychological History: Depression Smoking Status: Former smoker Past Alcohol Use History: None Reported Past Drug Use History: None Reported Additional Drug Use History / Comment(s): Quit smoking 40 years ago; vaccinated against Covid with [employer] vaccine, last dose June 2020 - Past Family History Father Family Medical History: AFIB, Congestive Heart Failure (CHF) Mother Family Medical History: Cancer Additional Family Medical History / Comment(s): breast cancer with mets Medications and Allergies Home Medications Medication Instructions Recorded Confirmed Type ALPRAZolam [Xanax] 1 mg PO DAILY@0800,219901/21/21 01/21/21 History Amitriptyline HCl [Elavil] 20 mg PO HS@219901/21/21 01/21/21 History Cholecalciferol [Vitamin D3 (25 50 mcg PO DAILY@79901/21/21 01/21/21 History Mcg = 1000 Iu)] Rosuvastatin [Crestor] 20 mg PO HS@219901/21/21 01/21/21 History Sertraline [Zoloft] 100 mg PO DAILY@79901/21/21 01/21/21 History amLODIPine [Norvasc] 5 mg PO HS@219901/21/21 01/21/21 History buPROPion [Wellbutrin] 75 mg PO DAILY@79901/21/21 01/21/21 History Allergies Allergy/AdvReac Type Severity Reaction Status Date / Time No Known Allergies Allergy Verified 01/21/21 16:53 Physical Exam Vitals: Vital Signs Temp Pulse Pulse Resp BP BP Pulse Ox 01/22/21 07:50 97.6 F 78 18 155/76 98 01/22/21 04:00 60 15 114/58 94 L 01/22/21 00:00 98.3 F 66 17 98/54 97 01/21/21 20:30 86 149/64 01/21/21 20:00 98 19 149/64 98 01/21/21 19:55 90 16 165/66 95 01/21/21 19:41 98.2 F 95 19 192/67 97 01/21/21 18:50 95 19 124/61 96 01/21/21 18:45 98.3 F 83 18 157/73 96 01/21/21 18:40 96 19 161/69 96 01/21/21 17:45 83 18 01/21/21 16:39 78 16 132/57 96 01/21/21 16:00 75 18 96 01/21/21 15:30 148/57 95 01/21/21 15:00 72 17 139/68 96 01/21/21 14:46 98.2 F 79 18 139/68 96 01/21/21 14:45 96 Intake and Output 01/21/21 01/22/21 01/22/21 22:59 06:59 14:59 Intake Total 224.706 74.388 351.5 Balance 224.706 74.388 351.5 Intake: IV 35 Intake, IV Titration 44.706 74.388 76.5 Amount Heparin Sod,Pork in 0.45% 44.706 74.388 NaCl 25,000 unit In 0.45 % NaCl 1 250ml.bag @ 12 UNITS/KG/HR 8.709 mls/hr IV .Q24H [facility] Rx#: [id number] Nitroglycerin-D5w Pmx 50 1.5 mg In Dextrose/Water 1 250ml.bag @ 5 MCG/MIN 1.5 mls/hr IV .Q24H [facility] Rx#: [id number] Sodium Chloride 0.9% 1, 75 000 ml In Empty Bag 1 bag @ 1 ML/KG/HR 72.575 mls/ hr IV .[id number] Rx#: [id number] Oral 180 240 Other: Voiding Method Toilet # Voids 2 1 Weight 72.575 kg Results CBC & Chem 7: 01/22/21 03:36 01/22/21 07:29 Labs: Abnormal Lab Results - Last 24 Hours (Table) 01/21/21 01/21/21 01/21/21 Range/Units 15:06 15:06 15:06 Hgb (11.4-16.0) gm/dL Hct (34.0-46.0) % Lymphocytes # 0.9 L (1.0-4.8) k/uL APTT 20.5 L (22.0-30.0) sec Chloride 109 H (98-107) mmol/L Carbon Dioxide 21 L (22-30) mmol/L BUN 22 H (7-17) mg/dL Creatinine 1.08 H (0.52-1.04) mg/dL Glucose 116 H (74-99) mg/dL AST 39 H (14-36) U/L Troponin I (0.000-0.034) ng/mL TSH (0.465-4.680) mIU/L 01/21/21 01/21/21 01/21/21 Range/Units 15:06 19:00 20:56 Hgb (11.4-16.0) gm/dL Hct (34.0-46.0) % Lymphocytes # (1.0-4.8) k/uL APTT 31.9 H (22.0-30.0) sec Chloride (98-107) mmol/L Carbon Dioxide (22-30) mmol/L BUN (7-17) mg/dL Creatinine (0.52-1.04) mg/dL Glucose (74-99) mg/dL AST (14-36) U/L Troponin I 0.967 H* 0.608 H* (0.000-0.034) ng/mL TSH (0.465-4.680) mIU/L 01/21/21 01/22/21 01/22/21 Range/Units 20:56 03:36 03:36 Hgb 11.2 L (11.4-16.0) gm/dL Hct 33.1 L (34.0-46.0) % Lymphocytes # (1.0-4.8) k/uL APTT 39.6 H (22.0-30.0) sec Chloride (98-107) mmol/L Carbon Dioxide (22-30) mmol/L BUN (7-17) mg/dL Creatinine (0.52-1.04) mg/dL Glucose (74-99) mg/dL AST (14-36) U/L Troponin I 0.536 H* (0.000-0.034) ng/mL TSH (0.465-4.680) mIU/L 01/22/21 01/22/21 01/22/21 Range/Units 07:29 07:29 09:24 Hgb (11.4-16.0) gm/dL Hct (34.0-46.0) % Lymphocytes # (1.0-4.8) k/uL APTT 44.5 H (22.0-30.0) sec Chloride 113 H (98-107) mmol/L Carbon Dioxide 19 L (22-30) mmol/L BUN 22 H (7-17) mg/dL Creatinine (0.52-1.04) mg/dL Glucose 123 H (74-99) mg/dL AST (14-36) U/L Troponin I (0.000-0.034) ng/mL TSH <0.015 L (0.465-4.680) mIU/L Thrombosis Risk Factor Assmnt - Choose All That Apply Any of the Below Risk Factors Present?: Yes Each Factor Represents 1 point: Obesity (BMI >25) Other Risk Factors: Yes Each Risk Factor Represents 2 Points: Age 61-74 years Other congenital or acquired thrombophilia - If yes, enter type in comment: No Thrombosis Risk Factor Assessment Total Risk Factor Score: 3 Thrombosis Risk Factor Assessment Level: Moderate Risk
[2021-01-22 13:37] LABS: T4, Free (Free Thyroxine) 5.21 ng/dL (0.78-2.19)
--- NOTE | 2021-01-22 13:40 | US ---
EXAMINATION TYPE: US carotid duplex BILAT DATE OF EXAM: 01/22/2021 COMPARISON: NONE CLINICAL HISTORY: 75-year-old female preop cardiac surgery. EXAM MEASUREMENTS: RIGHT: Peak Systolic Velocity (PSV) cm/sec ----- Right CCA: 124.0 ----- Right ICA: 149.0 ----- Right ECA: 151.0 ICA/CCA ratio: 1.2 RIGHT: End Diastole cm/sec ----- Right CCA: 26.6 ----- Right ICA: 36.6 ----- Right ECA: 0.0 LEFT: Peak Systolic Velocity (PSV) cm/sec ----- Left CCA: 121.0 ----- Left ICA: 132.0 ----- Left ECA: 206.0 ICA/CCA ratio: 1.1 LEFT: End Diastole cm/sec ----- Left CCA: 22.3 ----- Left ICA: 29.1 ----- Left ECA: 0.0 VERTEBRALS (direction of flow): Right Vertebral: Antegrade Left Vertebral: Antegrade Rhythm: Normal Mildly elevated velocities: right prox mid and distal ICA, right prox ECA, left prox ICA, left prox E CA IMPRESSION: Mildly elevated velocities within the bilateral ICAs measuring up to 149 cm/s peak systolic velocity. This could reflect turbulent flow given that the other parameters are within the normal range or cou ld reflect a moderate, 50-69% ICA stenosis. NASCET criteria was used in interpretation of this exam? Criteria for Assigning % of Stenosis / Diameter reduction (Estimation based on the indirect measurements of the internal carotid artery velocities (ICA PSV). 1. Normal (no stenosis)=ICA PSV < 125 cm/s: ratio < 2.0: ICA EDV<40 cm/s. 2. Less than 50% stenosis=ICA PSV < 125 cm/s: ratio < 2.0: ICA EDV<40 cm/s. 3. 50 to 69% stenosis=ICA PSV of 125 to 230 cm/s: ration 2.0 ? 4.0: ICA EDV 40-100 cm/s. 4. Greater than 70% stenosis to near occlusion= ICA PSV > 230 cm/s: ratio > 4.0: ICA EDV > 100 cm/s. 5. Near occlusion= ICA PSV velocities may be low or undetectable: variable ratio and ICA EDV. 6. Total occlusion=unable to detect flow.
[2021-01-22] MEDS: SODIUM CHLORIDE 0.9% 1,000 ML IV SCH (14:03)
[2021-01-22] MEDS: ATORVASTATIN 40 MG TAB PO SCH (14:13)
[2021-01-22] MEDS: METOPROLOL TARTRATE 25 MG TAB PO SCH ×2 (14:14→20:34)
[2021-01-22] MEDS: buPROPion 75 MG TAB PO SCH ×2 (14:38→15:18)
[2021-01-22 14:51] LABS: Chol/HDL Ratio 3.69; LDL Cholesterol,Calculated 40.8 mg/dL (0.0-131.0); VLDL Calculation 29.2 mg/dL (5.00-40.00)
[2021-01-22] MEDS: ALPRAZolam 1 MG TAB PO PRN ×2 (15:18→22:24)
[2021-01-22] MEDS: AMITRIPTYLINE HCL 10 MG TAB PO SCH (15:19)
[2021-01-22] MEDS: SERTRALINE 100 MG TAB PO SCH (16:54)
[2021-01-22] MEDS: methIMAzole 5 MG TAB PO SCH ×2 (16:55→22:24)
[2021-01-22 17:23] LABS: Appearance,Urine Clear (Clear); Bilirubin,Urine Negative (Negative); Blood,Urine Negative (Negative); Color,Urine Light Yellow; Glucose,Urine (UA) Negative (Negative); Ketones,Urine Negative (Negative); Leukocyte Esterase,Urine Negative (Negative); Nitrite,Urine Negative (Negative); Protein,Urine Negative (Negative); Specific Gravity,Urine 1.017 (1.001-1.035); Urobilinogen,Urine <2.0 mg/dL (<2.0)
[2021-01-22 20:15] LABS: Hemoglobin A1C 6.6 % (4.0-6.0)
[2021-01-22] MEDS: HEPARIN SOD,PORK IN 0.45% NACL 25,000 UNIT in 0.45% NACL 1 250ML.BAG IV SCH (20:34)
[2021-01-22] MEDS: NITROGLYCERIN-D5W PMX 50 MG in DEXTROSE/WATER 1 250ML.BAG IV SCH (20:41)
[2021-01-22] MEDS: amLODIPine 5 MG TAB PO SCH (22:24)
--- NOTE | 2021-01-22 23:37 | CT ---
EXAMINATION TYPE: CT chest wo con DATE OF EXAM: 01/22/2021 COMPARISON: None HISTORY: Confusion CT DLP: 1076.4 mGycm Automated exposure control for dose reduction was used. There is minimal pleural thickening at the posterior lung bases. There is mild subsegmental atelectas is at the lung bases. There is small left pleural effusion. Heart size is normal. There is coronary a rtery calcification. There is atheromatous change in the thoracic aorta. There is no aneurysm. There are no hilar masses. There is no mediastinal adenopathy. There is degenerative spurring in the thoracic spine. There is no compression fracture. Sternum is intact. I see no bony destructive proces s. Shoulder joints are intact. There is no evidence of a rib fracture. Upper abdominal soft tissues a re intact. IMPRESSION: Atherosclerotic vascular disease. Extensive coronary artery calcification. Pleural thickening and flu id at the lung bases. Minimal atelectasis left lung base. No significant aortic valve calcification.
[2021-01-23 00:41] LABS: Hepatitis A Antibody IgM Non-Reactive (Non-Reactive); Hepatitis B Core IgM Non-Reactive (Non-Reactive); Hepatitis B Surface Antigen Non-Reactive (Non-Reactive); Hepatitis C IgG Antibody Non-Reactive (Non-Reactive)
[2021-01-23 03:22] LABS: Basophils % (A) 0 %; Eosinophils # (A) 0.1 k/uL (0-0.7); Eosinophils % (A) 1 %; HCT 34.3 % (34.0-46.0); HGB 11.7 gm/dL (11.4-16.0); Lymphocytes # (A) 1.3 k/uL (1.0-4.8); Lymphocytes % (A) 23 %; MCH 28.8 pg (25.0-35.0); MCHC 34.1 g/dL (31.0-37.0); MCV 84.3 fL (80.0-100.0); Mean Platelet Volume 7.5; Monocytes # (A) 0.4 k/uL (0-1.0); Monocytes % (A) 8 %; Neutrophils # (A) 3.7 k/uL (1.3-7.7); Neutrophils % (A) 65 %; Platelet Count 197 k/uL (150-450); RBC 4.07 m/uL (3.80-5.40); RDW 12.9 % (11.5-15.5); WBC 5.8 k/uL (3.8-10.6)
[2021-01-23 03:57] LABS: Calcium 9.4 mg/dL (8.4-10.2); Potassium 4.1 mmol/L (3.5-5.1)
[2021-01-23] MEDS: SODIUM CHLORIDE 0.9% 1,000 ML IV SCH (06:35)
[2021-01-23] MEDS ORDERED: HEPARIN SODIUM,PORCINE 10,000 UNIT in SODIUM CHLORIDE 0.9% 1,000 ML IRRIGATION PRN (07:00)
[2021-01-23] MEDS ORDERED: HEPARIN SODIUM,PORCINE 2,500 UNIT in SODIUM CHLORIDE 0.9% 250 ML IRRIGATION PRN (07:00)
[2021-01-23] MEDS: FAMOTIDINE 20 MG/2 ML VIAL IV SCH (08:20)
[2021-01-23] MEDS: AMITRIPTYLINE HCL 10 MG TAB PO SCH (08:20)
[2021-01-23] MEDS: ATORVASTATIN 40 MG TAB PO SCH (08:20)
[2021-01-23] MEDS: SERTRALINE 100 MG TAB PO SCH (08:20)
[2021-01-23] MEDS: ASPIRIN 81 MG PO SCH (08:20)
[2021-01-23] MEDS: METOPROLOL TARTRATE 25 MG TAB PO SCH ×2 (08:20→22:01)
[2021-01-23] MEDS: buPROPion 75 MG TAB PO SCH (08:21)
[2021-01-23] MEDS: ALPRAZolam 1 MG TAB PO PRN ×2 (08:22→22:01)
[2021-01-23] MEDS: MORPHINE SULFATE 4 MG/ML SYRINGE IV PRN ×2 (08:53→13:21)
[2021-01-23] MEDS ORDERED: MD COMMUNICATION TO PHARMACY 1 EACH MISC PO ONE ×3 (09:23)
--- NOTE | 2021-01-23 09:58 | P.ARTDOP ---
Arterial Doppler LOWER EXTREMITY ARTERIAL DOPPLER: DATE OF SERVICE: 01/22/2021 Reason for study: Preop CABG. Please note: This is a limited study due to a r ecent heart cath and some oozing in the groin. No pressures were done on the right side making determinations to be somewhat limited. Doppler waveforms: Multiphasic throughout on the left. Digital waveforms are normal. Atypical throughout on the right. Toe waveforms in adequate.. Pulse volume recording: []. Pressure gradients: None on the left and the right cannot be determined. Ankle-brachial indices: Greater than 1 on the left. Toe brachial indices: [] on the right, 0.77 on the left Impression: The left side is normal. Right-sided waveforms suggests adequate circulation for healing but digital waveforms are inadequate and may be related to addressing the issue of his femoral oozing. Clinical correlation recommended..
--- NOTE | 2021-01-23 10:03 | P.PN ---
Subjective Progress Note Date: 01/23/21 Principal diagnosis: Coronary artery disease with left main disease, NSTEMI this admission hyperthyroid discovered with preoperative labs as well as borderline diabetic. Previous medical history of hypertension, hyperlipidemia, breast cancer status post right mastectomy with chemotherapy approximately 25 years ago without radiation, colostomy for bowel rest status post reversal, previous tobacco dependence, remote history of pneumonia The patient is currently sitting up in bed in the intensive care unit complaining of some chest pain having just finished eating breakfast which is similar to the pain she had at home after eating. She denies shortness of breath. Remains on IV heparin and nitro. Dr. Ring met with the patient and daughter yesterday to discuss open heart surgery, Dr. Flores met with the patient this morning and discussed our plan for open heart surgery 01/25/2021. The patient is in complete agreement. She did complain of pain/cramping to her right lower extremity last night which has since resolved. No other new concerns. Objective - Vital Signs Vital signs: Vital Signs Temp 97.9 F 01/23/21 04:00 Pulse 74 01/23/21 08:00 Resp 16 01/23/21 08:00 BP 134/60 01/23/21 08:00 Pulse Ox 91 L 01/23/21 08:00 Intake & Output 01/22/21 01/23/21 01/23/21 18:59 06:59 18:59 Intake Total 582.406 695.003 600 Output Total 900 650 200 Balance -317.594 45.003 400 Weight 70.3 kg Intake: IV 135 600 100 Sodium Chloride 0.9% 1, 100 600 100 000 ml @ 50 mls/hr IV . Q20H [facility] Rx#:[id number] Intake, IV Titration 207.406 95.003 Amount Heparin Sod,Pork in 0.45% 130.906 95.003 NaCl 25,000 unit In 0.45 % NaCl 1 250ml.bag @ 12 UNITS/KG/HR 8.709 mls/hr IV .Q24H [facility] Rx#: [id number] Nitroglycerin-D5w Pmx 50 1.5 mg In Dextrose/Water 1 250ml.bag @ 5 MCG/MIN 1.5 mls/hr IV .Q24H [facility] Rx#: [id number] Sodium Chloride 0.9% 1, 75 000 ml In Empty Bag 1 bag @ 1 ML/KG/HR 72.575 mls/ hr IV .[id number] [facility] Rx#: [id number] Oral 240 500 Output: Urine 900 650 200 Other: Voiding Method Toilet Toilet # Voids 1 - Exam CONSTITUTIONAL: Appears somewhat comfortable, cooperative, does complain of acute pain after eating RESPIRATORY: Lungs sounds diminished bilaterally. Respirations even, nonlabored. Currently on room air with oxygen saturation 91%. Able to achieve 1000 mL on incentive spirometry. Strong cough. CARDIOVASCULAR: S1, S2 present. Regular rate and rhythm, sinus rhythm on telemetry. Palpable peripheral pulses bilaterally, doppler pulse to right lower extremity. Trace bilateral lower extremity edema present. No calf pain or tenderness noted. SCDs present. GASTROINTESTINAL: Abdomen soft, nontender, nondistended. Active bowel sounds present 4 quadrants. Tolerating diet. GENITOURINARY: Continues to void INTEGUMENTARY: Skin is warm and dry NEUROLOGIC: Cranial nerves II through XII intact MUSKULOSKELETAL: Able to move all extremities, strength equal bilaterally, gait normal PSYCHIATRIC: Alert and oriented to person place and time, appropriate affect, intact judgment and insight, anxious at times - Allied health notes Allied health notes reviewed: nursing - Labs CBC & Chem 7: 01/23/21 03:03 01/23/21 03:03 Labs: Abnormal Lab Results - Last 24 Hours (Table) 01/22/21 01/22/21 01/22/21 Range/Units 03:36 07:29 07:32 APTT (22.0-30.0) sec Chloride (98-107) mmol/L Carbon Dioxide (22-30) mmol/L BUN (7-17) mg/dL Creatinine (0.52-1.04) mg/dL Glucose (74-99) mg/dL Hemoglobin A1c 6.6 H (4.0-6.0) % HDL Cholesterol 26.0 L (40.0-60.0) mg/dL TSH <0.015 L (0.465-4.680) mIU/L Free T4 5.21 H (0.78-2.19) ng/dL 01/22/21 01/22/21 01/23/21 Range/Units 09:24 19:24 03:03 APTT 44.5 H 21.7 L (22.0-30.0) sec Chloride 108 H (98-107) mmol/L Carbon Dioxide 20 L (22-30) mmol/L BUN 22 H (7-17) mg/dL Creatinine 1.26 H (0.52-1.04) mg/dL Glucose 122 H (74-99) mg/dL Hemoglobin A1c (4.0-6.0) % HDL Cholesterol (40.0-60.0) mg/dL TSH (0.465-4.680) mIU/L Free T4 (0.78-2.19) ng/dL 01/23/21 Range/Units 03:03 APTT 41.4 H (22.0-30.0) sec Chloride (98-107) mmol/L Carbon Dioxide (22-30) mmol/L BUN (7-17) mg/dL Creatinine (0.52-1.04) mg/dL Glucose (74-99) mg/dL Hemoglobin A1c (4.0-6.0) % HDL Cholesterol (40.0-60.0) mg/dL TSH (0.465-4.680) mIU/L Free T4 (0.78-2.19) ng/dL Microbiology - Last 24 Hours (Table) 01/22/21 17:00 Nasal Screen MRSA/MSSA - Preliminary Nasal Swab - Imaging and Cardiology Heart cath and echo films reviewed yesterday with Dr. Ring and today with Dr. Flores Assessment and Plan Assessment: 1. Coronary artery disease with left main disease, NSTEMI this admission 2. History of hypertension 3. Hyperlipidemia, treated, cholesterol 96, LDL 40 4. Breast cancer status post right mastectomy with chemotherapy approximately 25 years ago 5. Colostomy for bowel rest status post reversal 6. Previous tobacco dependence, pre-op FEV1 84% of predicted 7. Remote history of pneumonia 8. Hyperthyroid (discovered on pre-op labs), TSH <0.015, FT4 5.21 9. Borderline diabetes, pre-op A1c 6.6% Plan: 1. Continue aspirin, statin, beta maría, IV heparin, IV nitro. Would avoid LAYLA/ARB/CCB for 48 hours prior to surgery to prevent intra/post op vasoplegia 2. Tapazole started yesterday per primary care service 3. Encourage incentive spirometry 4. Consultation placed to pulmonology for planning director management 5. Increase activity as tolerated. 5 meter walk to be completed per cardiac rehab 6. Our plan is for off pump myocardial revascularizaton with left internal mammary artery, endoscopic vein harvest, possible left radial artery harvest, possible ligation of left atrial appendage on Thursday01/25/[address] Flores 7. Pre-op teaching to continue. STS risk score calculated and discussed with patient 8. Medical management of other comorbidities per primary care and cardiology 9. More recommendations to follow Time with Patient: Greater than 30
--- NOTE | 2021-01-23 10:08 | P.VSCSTY ---
Greater Saphenous Vein Mapping This is bilateral lower extremity greater saphenous vein mapping. Date of service: 01/22/2021 Vein quality and ultrasound appearance: We see no intraluminal thrombus or obvious wall changes. Vein size groin right : 6.6 x 7.7 groin left: 5.5 x 6.3 High thigh right: 6.6 x 7.1 high thigh left: 5.8 x 6.0 Mid thigh right: 4.2 x 4.4 mid thigh left: 2.7 x 2.7 Above-knee right: 2.5 x 2.8 above- knee left: 3.3 x 3.7 Below knee right: 2.5 x 2.7 below-knee left: 2.7 x 2.7 Mid calf right: 2.0 x 2.3 mid calf left: 2.0 x 2.3 Ankle right: 1.2 x 1.4 ankle left: 1.6 x 1.6 Impression: Appears to have usable greater saphenous vein bilaterally. Ankles small for use as conduit..
--- NOTE | 2021-01-23 11:20 | P.PN ---
Subjective HISTORY OF PRESENTING ILLNESS This is a pleasant 75-year-old female past medical history significant for hypertension, hyperlipidemia, former nicotine dependence. She does not follow with a lunch cook. We have been asked to see in consultation for chest pain and elevated troponin. Patient is seen and examined at bedside. She started to have chest pain 5 days ago. Located in anterior middle of chest. 01/29. Radiating to her left side rib, left arm and left shoulder. Associated shortness of breath and diaphoresis. At home she felt as if it was getting worse with food, however it did not resolve. Her chest pain has progressively gotten worse with intensity over the past 5 days and decided to present to the emergency department. Aggravating factors include activity and/or exertion. Alleviating factors include nitroglyerin. She states at this time just walking to/from the bathroom she has increased chest pain and shortness of breath with exertion. Denies nausea, vomiting, palpitations, lightheaded, dizziness, or syncope. She denies symptoms of orthopnea or PND. She is a former smoker. Denies alcohol use. She denies history of IA, stroke, diabetes, or coronary artery disease. Family history includes father had atrial fibrillation and congestive heart failure in the 70s. She states she has had a cardiac work up before including a stress test but this was many years ago, at the time she was told it was normal. On admission, patient placed on IV heparin drip, aspirin, and Nitroglycerin drip. 01/23/2021 Patient underwent cardiac catheterization yesterday revealing a 60-70% stenosis of the left main, LAD with mild diffuse disease with no critical lesions, circumflex with 80-90% eccentric lesion in the proximal portion, RCA with an ostial lesion of approximately 50-60% and a 60% stenosis in the mid RCA. CT surgery has evaluated the patient and has begun her preoperative workup. They plan for surgical intervention later this week. Blood pressure 134/60 heart rate 74 afebrile maintaining oxygen saturation on nasal cannula. Laboratory data reviewed, CBC unremarkable, sodium 137, potassium 4.1, creatinine 1.26. Bilateral carotid Doppler reveals mildly elevated velocities within bilateral ICAs, this could be normal or could reflect a 50-69% ICA stenosis. CT of the chest reveals atherosclerotic vascular disease, extensive coronary calcifications, pleural thickening and fluid at the lung bases and minimal atelectasis at the left lung base. Echocardiogram obtained reveals preserved LV systolic function with ejection fraction 55-60%, hypertrophy of the atrial septum, mild MR, mild TR and moderate pulmonary hypertension with RVSP of 53 mmHg. Currently maintained on amlodipine 5 mg at bedtime, aspirin 81 mg daily, atorvastatin 40 mg daily, heparin infusion, nitroglycerin infusion and Lopressor 25 mg twice a day. PHYSICAL EXAMINATION CONSTITUTIONAL: Currently having chest pain shortness of breath and diaphoresis HEENT: Head is normocephalic. Pupils are equal, round. Sclerae anicteric. Mucous membranes of the mouth are moist. No JVD. No carotid bruit. CHEST EXAMINATION: Lungs are clear to auscultation. No chest wall tenderness is noted on palpation or with deep breathing. HEART EXAMINATION: Regular rate and rhythm. S1, S2 heard. No murmurs, gallops or rub. EXTREMITIES: 2+ peripheral pulses on the left; no DP pulse on the right and faint doppler of the posterior tibial, no lower extremity edema and no calf tenderness. ASSESSMENT NSTEMI Left bundle branch block, unclear if new or had prior. History of hypertension Hyperlipidemia Former tobacco smoker PLAN Continue to optimize her cardiac status in preparation for bypass surgery. Encourage incentive spirometer use. Continue heparin infusion. Request vascular consultation. Further recommendations to follow based upon clinical course. Nurse Practitioner note has been reviewed, I agree with a documented findings and plan of care. Patient was seen and examined. Objective - Vital Signs Vital signs: Vital Signs Temp 97.9 F 01/23/21 04:00 Pulse 74 01/23/21 08:00 Resp 16 01/23/21 08:00 BP 134/60 01/23/21 08:00 Pulse Ox 91 L 01/23/21 08:00 Intake & Output 01/22/21 01/23/21 01/23/21 18:59 06:59 18:59 Intake Total 582.406 695.003 600 Output Total 900 650 200 Balance -317.594 45.003 400 Weight 70.3 kg Intake: IV 135 600 100 Sodium Chloride 0.9% 1, 100 600 100 000 ml @ 50 mls/hr IV . Q20H [facility] Rx#:[id number] Intake, IV Titration 207.406 95.003 Amount Heparin Sod,Pork in 0.45% 130.906 95.003 NaCl 25,000 unit In 0.45 % NaCl 1 250ml.bag @ 12 UNITS/KG/HR 8.709 mls/hr IV .Q24H [facility] Rx#: [id number] Nitroglycerin-D5w Pmx 50 1.5 mg In Dextrose/Water 1 250ml.bag @ 5 MCG/MIN 1.5 mls/hr IV .Q24H [facility] Rx#: [id number] Sodium Chloride 0.9% 1, 75 000 ml In Empty Bag 1 bag @ 1 ML/KG/HR 72.575 mls/ hr IV .[id number] [facility] Rx#: [id number] Oral 240 500 Output: Urine 900 650 200 Other: Voiding Method Toilet Toilet # Voids 1 - Labs CBC & Chem 7: 01/23/21 03:03 01/23/21 03:03 Labs: Abnormal Lab Results - Last 24 Hours (Table) 01/22/21 01/22/21 01/22/21 Range/Units 03:36 07:29 07:32 APTT (22.0-30.0) sec Chloride (98-107) mmol/L Carbon Dioxide (22-30) mmol/L BUN (7-17) mg/dL Creatinine (0.52-1.04) mg/dL Glucose (74-99) mg/dL Hemoglobin A1c 6.6 H (4.0-6.0) % HDL Cholesterol 26.0 L (40.0-60.0) mg/dL TSH <0.015 L (0.465-4.680) mIU/L Free T4 5.21 H (0.78-2.19) ng/dL 01/22/21 01/22/21 01/23/21 Range/Units 09:24 19:24 03:03 APTT 44.5 H 21.7 L (22.0-30.0) sec Chloride 108 H (98-107) mmol/L Carbon Dioxide 20 L (22-30) mmol/L BUN 22 H (7-17) mg/dL Creatinine 1.26 H (0.52-1.04) mg/dL Glucose 122 H (74-99) mg/dL Hemoglobin A1c (4.0-6.0) % HDL Cholesterol (40.0-60.0) mg/dL TSH (0.465-4.680) mIU/L Free T4 (0.78-2.19) ng/dL 01/23/21 Range/Units 03:03 APTT 41.4 H (22.0-30.0) sec Chloride (98-107) mmol/L Carbon Dioxide (22-30) mmol/L BUN (7-17) mg/dL Creatinine (0.52-1.04) mg/dL Glucose (74-99) mg/dL Hemoglobin A1c (4.0-6.0) % HDL Cholesterol (40.0-60.0) mg/dL TSH (0.465-4.680) mIU/L Free T4 (0.78-2.19) ng/dL Microbiology - Last 24 Hours (Table) 01/22/21 17:00 Nasal Screen MRSA/MSSA - Preliminary Nasal Swab
--- NOTE | 2021-01-23 11:55 | P.CNPUL ---
History of Present Illness Consult date: 01/23/21 Requesting physician: Denys Flores Reason for consult: other (Mechanical ventilator/critical care management) Chief complaint: Chest pain History of present illness: This is a very pleasant 75-year-old female patient who has a history of previous colectomy with colostomy and subsequent reversal, hyperlipidemia, hypertension, osteoarthritis, right-sided breast cancer status post mastectomy, depression. Remote smoking history. She presented to the emergency room on 01/21/2021 with complaints of left-sided chest discomfort radiating down her left arm and into her back. Echocardiogram revealed a normal left ventricular systolic function with ejection fraction 55-60%. No significant valvular disease. She was taken to the cardiac catheterization lab on 01/22/2021 and found to have eccentric 60- 70% stenosis of the left main, 80-90% eccentric lesion in the proximal portion of the left circumflex. Moderate to severe disease involving the ostium of the right coronary artery and 60% stenosis in the mid RCA. Computed tomography scan of the chest revealed atherosclerotic vascular disease. Extensive coronary artery calcification. Pleural thickening and fluid at the lung bases. Minimal atelectasis left lung base. No significant aortic valve calcification. The plan is for coronary artery bypass surgery on 01/25/2021. She is seen today in consultation in the intensive care unit. She is currently awake and alert in no acute distress. No chest pain currently. No worsening shortness of breath cough or congestion. She is maintaining O2 saturation in the mid 90s on 2 L/m nasal cannula. White count 5.8. Hemoglobin 11.7. Platelets 197. Sodium 137. Potassium 4.1. Bicarb 20. Creatinine 1.26. Urinalysis clear. Coronavirus not detected. She remains on heparin drip, nitroglycerin drip at 10 mcg/m. Review of Systems REVIEW OF SYSTEMS: CONSTITUTIONAL: Denies any recent significant weight loss or weight gain. EYES: Denies change in vision. EARS, NOSE, MOUTH, THROAT: Denies headaches, denies sore throat. CARDIOVASCULAR: Currently denies chest pain, palpitations or syncopal episodes. RESPIRATORY: Denies shortness of breath, cough, congestion or hemoptysis. GASTROINTESTINAL: Denies change in appetite, denies abdominal pain GENITOURINARY: Denies hematuria, denies infections. MUSKULOSKELETAL: Right shoulder pain. Denies pain, denies swelling. INTEGUMENTARY: Denies rash, denies eczema. NEUROLOGICAL: Denies recent memory loss, no recent seizure activity. PSYCHIATRIC: Denies anxiety, denies depression. HEMATOLOGIC/LYMPHATIC: Denies anemia, denies enlarged lymph nodes. Past Medical History Past Medical History: Cancer, Hyperlipidemia, Hypertension, Osteoarthritis (OA) Additional Past Medical History / Comment(s): Colostomy bag with removal History of Any Multi-Drug Resistant Organisms: None Reported Past Surgical History: Appendectomy, Bladder Surgery, Bowel Resection, Breast Surgery, Cholecystectomy, Hysterectomy, Orthopedic Surgery, Tubal Ligation Additional Past Surgical History / Comment(s): cataractsurgery x2 with lens implants, masectomy on right breast, bowel resection with colostomy and reversal, bladder suspension, left knee replacement, skin cancer removed from right ear Past Anesthesia/Blood Transfusion Reactions: No Reported Reaction Past Psychological History: Depression Smoking Status: Former smoker Past Alcohol Use History: None Reported Past Drug Use History: None Reported Additional Drug Use History / Comment(s): Quit smoking 40 years ago; vaccinated against Covid with [employer] vaccine, last dose June 2020 - Past Family History Father Family Medical History: AFIB, Congestive Heart Failure (CHF) Mother Family Medical History: Cancer Additional Family Medical History / Comment(s): breast cancer with mets Medications and Allergies Home Medications Medication Instructions Recorded Confirmed Type ALPRAZolam [Xanax] 1 mg PO DAILY@0800,219901/21/21 01/21/21 History Amitriptyline HCl [Elavil] 20 mg PO DAILY 01/21/21 01/22/21 History Cholecalciferol [Vitamin D3 (25 50 mcg PO DAILY@79901/21/21 01/21/21 History Mcg = 1000 Iu)] Rosuvastatin [Crestor] 20 mg PO HS@219901/21/21 01/21/21 History Sertraline [Zoloft] 100 mg PO DAILY@79901/21/21 01/21/21 History amLODIPine [Norvasc] 5 mg PO HS@219901/21/21 01/21/21 History buPROPion [Wellbutrin] 75 mg PO DAILY@79901/21/21 01/21/21 History Allergies Allergy/AdvReac Type Severity Reaction Status Date / Time No Known Allergies Allergy Verified 01/21/21 16:53 Physical Exam Vitals: Vital Signs Temp Pulse Resp BP Pulse Ox 01/23/21 09:00 78 12 139/57 91 L 01/23/21 08:00 74 12 134/60 91 L 01/23/21 07:04 96 01/23/21 07:00 66 17 130/62 01/23/21 06:00 68 16 135/60 96 01/23/21 05:00 65 16 122/52 96 01/23/21 04:00 97.9 F 63 24 132/58 95 01/23/21 03:25 18 01/23/21 03:00 98.1 F 70 18 132/60 92 L 01/23/21 02:00 62 15 125/55 95 01/23/21 01:00 62 17 147/67 94 L 01/23/21 00:00 98.3 F 73 12 163/78 97 01/22/21 23:00 79 23 155/70 95 01/22/21 22:00 75 16 147/65 98 01/22/21 21:30 69 18 135/69 94 L 01/22/21 21:00 70 14 132/62 93 L 01/22/21 20:30 67 15 166/92 94 L 01/22/21 20:00 97.9 F 84 18 148/64 99 01/22/21 19:30 66 12 142/104 96 01/22/21 19:14 67 10 L 142/104 95 Intake and Output 01/22/21 01/23/21 01/23/21 22:59 06:59 14:59 Intake Total 430.906 495.003 700 Output Total 1000 550 200 Balance -569.094 -54.997 500 Intake: IV 300 400 200 Sodium Chloride 0.9% 1, 300 400 200 000 ml @ 50 mls/hr IV . Q20H [facility] Rx#:[id number] Intake, IV Titration 130.906 95.003 Amount Heparin Sod,Pork in 0.45% 130.906 95.003 NaCl 25,000 unit In 0.45 % NaCl 1 250ml.bag @ 12 UNITS/KG/HR 8.709 mls/hr IV .Q24H [facility] Rx#: [id number] Oral 500 Output: Urine 1000 550 200 Other: Voiding Method Toilet Toilet Toilet Weight 70.3 kg GENERAL EXAM: Alert, very pleasant 75-year-old female patient, on 2 L nasal cannula, comfortable in no apparent distress. HEAD: Normocephalic. EYES: Normal reaction of pupils, equal size. NOSE: Clear with pink turbinates. THROAT: No erythema or exudates. NECK: No masses, no JVD. CHEST: No chest wall deformity. LUNGS: Equal air entry with no crackles, wheeze, rhonchi or dullness. CVS: S1 and S2 normal with no audible murmur, regular rhythm. ABDOMEN: No hepatosplenomegaly, normal bowel sounds, no guarding or rigidity. SPINE: No scoliosis or deformity SKIN: No rashes CENTRAL NERVOUS SYSTEM: No focal deficits, tone is normal in all 4 extremities. EXTREMITIES: There is no peripheral edema. No clubbing, no cyanosis. Peripheral pulses are intact. Results - Laboratory Findings CBC and BMP: 01/23/21 03:03 01/23/21 03:03 PT/INR, D-dimer PT 10.2 sec (9.0-12.0) 01/22/21 03:36 INR 0.9 (<1.2) 01/22/21 03:36 Abnormal lab findings: Abnormal Labs 01/21/21 01/21/21 01/21/21 15:06 15:06 15:06 Hgb Hct Lymphocytes # 0.9 L APTT 20.5 L Chloride 109 H Carbon Dioxide 21 L BUN 22 H Creatinine 1.08 H Glucose 116 H Hemoglobin A1c AST 39 H Troponin I HDL Cholesterol TSH Free T4 01/21/21 01/21/21 01/21/21 15:06 19:00 20:56 Hgb Hct Lymphocytes # APTT 31.9 H Chloride Carbon Dioxide BUN Creatinine Glucose Hemoglobin A1c AST Troponin I 0.967 H* 0.608 H* HDL Cholesterol TSH Free T4 01/21/21 01/22/21 01/22/21 20:56 03:36 03:36 Hgb 11.2 L Hct 33.1 L Lymphocytes # APTT 39.6 H Chloride Carbon Dioxide BUN Creatinine Glucose Hemoglobin A1c AST Troponin I 0.536 H* HDL Cholesterol TSH Free T4 01/22/21 01/22/21 01/22/21 03:36 07:29 07:29 Hgb Hct Lymphocytes # APTT Chloride 113 H Carbon Dioxide 19 L BUN 22 H Creatinine Glucose 123 H Hemoglobin A1c 6.6 H AST Troponin I HDL Cholesterol TSH <0.015 L Free T4 5.21 H 01/22/21 01/22/21 01/22/21 07:32 09:24 19:24 Hgb Hct Lymphocytes # APTT 44.5 H 21.7 L Chloride Carbon Dioxide BUN Creatinine Glucose Hemoglobin A1c AST Troponin I HDL Cholesterol 26.0 L TSH Free T4 01/23/21 01/23/21 03:03 03:03 Hgb Hct Lymphocytes # APTT 41.4 H Chloride 108 H Carbon Dioxide 20 L BUN 22 H Creatinine 1.26 H Glucose 122 H Hemoglobin A1c AST Troponin I HDL Cholesterol TSH Free T4 - Diagnostic Findings Chest x-ray: image reviewed CT scan - chest: image reviewed Assessment and Plan Assessment: 1 Acute non-ST segment elevation myocardial infarction in a patient found to have left main disease 2 History of hypertension 3 Hyperlipidemia 4 Remote history of chronic tobacco dependence, FEV1 value 84% 5 Previous bowel resection with colostomy and subsequent reversal 6 History of right-sided breast cancer with chemotherapy and right-sided mastectomy 7 Hypothyroidism, found on this admission, initiated on Tapazole 8 History of depression Plan: The patient was seen and evaluated by Dr. Gordillo Chest x-ray, CAT scan, labs, FEV1 value reviewed She's been educated regarding the incentive spirometer and importance of its use Plan is for surgery on 01/25/2021 We'll plan for early extubation protocol We will follow closely in the postoperative period and make recommendations based on her clinical status I, the cosigning physician, performed a history & physical examination of the patient. Lungs sounds are clear. Maintaining good O2 saturations in the 90s on 2 L/m per nasal cannula. I discussed the assessment and plan of care with my nurse practitioner, Precious Schrader. I attest to the above consultation as dictated by her. Time with Patient: Greater than 30
[2021-01-23] MEDS: MUPIROCIN 2% OINT 22 GM TUBE NASAL SCH ×2 (12:22→22:02)
[2021-01-23] MEDS: polyethylene glycoL 3350 17 GM POWD.PACK PO SCH (14:10)
--- NOTE | 2021-01-23 14:21 | P.GSCN ---
History of Present Illness Consult date: 01/23/21 History of present illness: Jenny is a 75-year-old female who has a history of hypertension, hyperlipidemia and tobacco abuse. She came into the hospital with increasing chest pains and elevated troponins. She underwent a heart catheterization on 01/22/2021 found to have critical left main disease and proximal circumflex disease as well as the right coronary. Given these findings she was recommended to undergo urgent coronary past evaluation and is planning to undergo surgery on 01/25/2021. After the procedure the patient did note she had increasing pain in her right thigh that travelled down to her leg and back up. She had an ultrasound performed revealing abnormal waveforms, and since there was a recent heart catheterization, they did not perform any segmental pressures. I was notified of the patient and condition after receiving a call from the cardiology [employer] on 01/23/2021 at 1215 pm. Since that time, the patient's pain has alleviated. She is maintained on a heparin drip. She tolerated therapy today without any significant issue. She denies any pain at rest at the time of my evaluation almost 24 hours after the catheterization Review of Systems 14 point review of systems performed. Pertinent positives and negatives per the HPI Past Medical History Past Medical History: Cancer, Hyperlipidemia, Hypertension, Osteoarthritis (OA) Additional Past Medical History / Comment(s): Colostomy bag with removal History of Any Multi-Drug Resistant Organisms: None Reported Past Surgical History: Appendectomy, Bladder Surgery, Bowel Resection, Breast Surgery, Cholecystectomy, Hysterectomy, Orthopedic Surgery, Tubal Ligation Additional Past Surgical History / Comment(s): cataractsurgery x2 with lens implants, masectomy on right breast, bowel resection with colostomy and reversal, bladder suspension, left knee replacement, skin cancer removed from right ear Past Anesthesia/Blood Transfusion Reactions: No Reported Reaction Past Psychological History: Depression Smoking Status: Former smoker Past Alcohol Use History: None Reported Past Drug Use History: None Reported Additional Drug Use History / Comment(s): Quit smoking 40 years ago; vaccinated against Covid with viaCycle vaccine, last dose June 2020 - Past Family History Father Family Medical History: AFIB, Congestive Heart Failure (CHF) Mother Family Medical History: Cancer Additional Family Medical History / Comment(s): breast cancer with mets Medications and Allergies Home Medications Medication Instructions Recorded Confirmed Type ALPRAZolam [Xanax] 1 mg PO DAILY@0800,2200 08/02/21 08/02/21 History Amitriptyline HCl [Elavil] 20 mg PO DAILY 01/21/21 01/22/21 History Cholecalciferol [Vitamin D3 (25 50 mcg PO DAILY@0800 01/21/21 01/21/21 History Mcg = 1000 Iu)] Rosuvastatin [Crestor] 20 mg PO HS@0 01/21/21 01/21/21 History Sertraline [Zoloft] 100 mg PO DAILY@79901/21/21 01/21/21 History amLODIPine [Norvasc] 5 mg PO HS@219901/21/21 01/21/21 History buPROPion [Wellbutrin] 75 mg PO DAILY@79901/21/21 01/21/21 History Allergies Allergy/AdvReac Type Severity Reaction Status Date / Time No Known Allergies Allergy Verified 01/21/21 16:53 Surgical - Exam Vital Signs Pulse Ox 96 01/21/21 14:45 Gen a pleasant cooperative female in no acute distress. After she was up at the bedside including on the bed fixing the wires and IV tubings trying to untangle things. She is normocephalic, atraumatic, extracted motion is intact. Heart appears regular at this time. Lungs are clear bilaterally. Abdomen is soft, obese, nontender nondistended. Extremity show no clubbing, cyanosis or edema. She maintains palpable radial pulses bilaterally. Easily palpable left femoral pulse. Diminished right femoral pulse. Palpable dorsalis pedis on the left and posterior tibial on the left. She does have small appearing vessels. No Palpable pulses on the right. Biphasic PT on the right. The extremity is equal and warmth to the left. Motor sensory remains intact Results Ultrasound results are reviewed - Labs 01/23/21 03:03 01/23/21 03:03 Abnormal Lab Results - Last 24 Hours (Table) 01/22/21 01/22/21 01/22/21 Range/Units 03:36 07:32 19:24 APTT 21.7 L (22.0-30.0) sec Chloride (98-107) mmol/L Carbon Dioxide (22-30) mmol/L BUN (7-17) mg/dL Creatinine (0.52-1.04) mg/dL Glucose (74-99) mg/dL Hemoglobin A1c 6.6 H (4.0-6.0) % HDL Cholesterol 26.0 L (40.0-60.0) mg/dL 01/23/21 01/23/21 01/23/21 Range/Units 03:03 03:03 10:34 APTT 41.4 H 71.4 H (22.0-30.0) sec Chloride 108 H (98-107) mmol/L Carbon Dioxide 20 L (22-30) mmol/L BUN 22 H (7-17) mg/dL Creatinine 1.26 H (0.52-1.04) mg/dL Glucose 122 H (74-99) mg/dL Hemoglobin A1c (4.0-6.0) % HDL Cholesterol (40.0-60.0) mg/dL Microbiology - Last 24 Hours (Table) 01/22/21 17:00 Nasal Screen MRSA/MSSA - Preliminary Nasal Swab Diabetes panel 01/22/21 01/22/21 01/23/21 Range/Units 03:36 07:32 03:03 Sodium 137 (137-145) mmol/L Potassium 4.1 (3.5-5.1) mmol/L Chloride 108 H (98-107) mmol/L Carbon Dioxide 20 L (22-30) mmol/L BUN 22 H (7-17) mg/dL Creatinine 1.26 H (0.52-1.04) mg/dL Glucose 122 H (74-99) mg/dL Hemoglobin A1c 6.6 H (4.0-6.0) % Calcium 9.4 (8.4-10.2) mg/dL Triglycerides 146.0 (0.0-149.0) mg/dL HDL Cholesterol 26.0 L (40.0-60.0) mg/dL Calcium panel 01/23/21 Range/Units 03:03 Calcium 9.4 (8.4-10.2) mg/dL Pituitary panel 01/23/21 Range/Units 03:03 Sodium 137 (137-145) mmol/L Potassium 4.1 (3.5-5.1) mmol/L Chloride 108 H (98-107) mmol/L Carbon Dioxide 20 L (22-30) mmol/L BUN 22 H (7-17) mg/dL Creatinine 1.26 H (0.52-1.04) mg/dL Glucose 122 H (74-99) mg/dL Calcium 9.4 (8.4-10.2) mg/dL Adrenal panel 01/23/21 Range/Units 03:03 Sodium 137 (137-145) mmol/L Potassium 4.1 (3.5-5.1) mmol/L Chloride 108 H (98-107) mmol/L Carbon Dioxide 20 L (22-30) mmol/L BUN 22 H (7-17) mg/dL Creatinine 1.26 H (0.52-1.04) mg/dL Glucose 122 H (74-99) mg/dL Calcium 9.4 (8.4-10.2) mg/dL Assessment and Plan Assessment: Right lower extremity arterial insufficiency Status post heart catheterization Coronary artery disease, scheduled for bypass Plan: I had a long discussion with the patient regarding her findings and evaluations. This time she remains motor sensory intact without limb threatening arterial occlusion. I do believe there is a certain degree of arterial insufficiency given her waveforms. It is difficult to determine if this is due to some degree of chronic disease or not given no previous imaging. Given she has palpable pulses on the left lower extremity I do not believe it is likely more acute in nature. She does have small vessels and this may be in relation to the closure device and a small vessel. Currently since she is relatively asymptomatic from this area of occlusion versus narrowing, no further intervention is necessary. Maintain anticoagulation. Continue with cardiac interventions. If anything changes or she begins having motor sensory changes to her right lower extremity, we would need to go urgently to the operating room in order to reinitiate blood flow. This is discussed with cardiology and cardiovascular teams as well as the primary team the patient seemingly understands and is willing to proceed as such
[2021-01-23] MEDS: HEPARIN SOD,PORK IN 0.45% NACL 25,000 UNIT in 0.45% NACL 1 250ML.BAG IV SCH (14:40)
--- NOTE | 2021-01-23 15:00 | P.PN ---
Subjective Patient is a pleasant 75-year-old female came in with compensative chest pressure like sensation about a stress 10 in severity on the left side of the chest radiating to the left shoulder along with the diaphoresis or shortness of breath. Patient has a classic chest pain found to have some ST-T wave changes in the leads 1 before to V6. Patient also had mildly elevated troponin because of which patient underwent cardiac catheterization which showed critical left main disease along with the moderate disease in RCA and some disease in the left circumflex as well. Patient had left bundle branch block on the EKG no other EKGs to compare with. Patient is presently on heparin drip and being evaluated for coronary artery bypass grafting at this time. 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 Patient is also found to have right lower extremity arterial insufficiency for which vascular surgery is recommending continuation of anticoagulation without any further intervention at this point of time. Patient is scheduled to undergo coronary artery bypass grafting in Thursday serum creatinine appears to have worsened a bit. Patient is also on IV calcium maría for blood pressure control. Patient is also receiving preoperative antibiotics. Constitutional: Denied any fatigue denied any fever. Cardio vascular: denied any chest pain, palpitations Gastrointestinal denied any nausea vomiting Pulmonary: Denied any shortness of breath cough Neurologic denied any new focal deficits All inpatient medications were reviewed and appropriate changes in these med ications as dictated in the interval history and assessment and plan. PHYSICAL EXAMINATION: GENERAL: The patient is alert and oriented x3, not in any acute distress. Well developed, well nourished. HEENT: Pupils are round and equally reacting to light. EOMI. No scleral icterus. No conjunctival pallor. Normocephalic, atraumatic. No pharyngeal erythema. No thyromegaly. CARDIOVASCULAR: S1 and S2 present. No murmurs, rubs, or gallops. PULMONARY: Chest is clear to auscultation, no wheezing or crackles. ABDOMEN: Soft, nontender, nondistended, normoactive bowel sounds. No palpable organomegaly. MUSCULOSKELETAL: No joint swelling or deformity. EXTREMITIES: No cyanosis, clubbing, or pedal edema. NEUROLOGICAL: Gross neurological examination did not reveal any focal deficits. SKIN: No rashes. Assessment and plan -Non-ST elevation myocardial infarction, acute: Patient is status post cardiac catheterization, patient will undergo coronary artery bypass grafting because of critical LAD lesion. Patient will be continued on heparin, statin, beta maría, antiplatelet therapy. -Hypertension -Hyperlipidemia -Left bundle-branch block unclear if it's a new lead prior left bundle-branch b lock -Hyperthyroidism: Primary hyperthyroidism continue with methimazole. -Right lower extremity to arterial insufficiency continuing on IV heparin, patient is also on IV calcium channel blockers. -Mild acute renal failure probably secondary to contrast all prerenal azotemia Objective - Vital Signs Vital signs: Vital Signs Temp 97.9 F 01/23/21 04:00 Pulse 78 01/23/21 09:00 Resp 12 01/23/21 09:00 BP 147/61 01/23/21 10:00 Pulse Ox 91 L 01/23/21 09:00 Intake & Output 01/22/21 01/23/21 01/23/21 18:59 06:59 18:59 Intake Total 582.406 767.848 5453.568 Output Total 900 650 401 Balance -317.594 45.003 1000.568 Weight 70.3 kg Intake: IV 135 600 400 Sodium Chloride 0.9% 1, 100 600 400 000 ml @ 50 mls/hr IV . Q20H [facility] Rx#:[id number] Intake, IV Titration 207.406 95.003 141.568 Amount Heparin Sod,Pork in 0.45% 130.906 95.003 141.568 NaCl 25,000 unit In 0.45 % NaCl 1 250ml.bag @ 12 UNITS/KG/HR 8.709 mls/hr IV .Q24H [facility] Rx#: [id number] Nitroglycerin-D5w Pmx 50 1.5 mg In Dextrose/Water 1 250ml.bag @ 5 MCG/MIN 1.5 mls/hr IV .Q24H [facility] Rx#: [id number] Sodium Chloride 0.9% 1, 75 000 ml In Empty Bag 1 bag @ 1 ML/KG/HR 72.575 mls/ hr IV .[id number] [facility] Rx#: [id number] Oral 240 860 Output: Urine 900 650 400 Stool 1 Other: Voiding Method Toilet Toilet Toilet # Voids 1 - Labs CBC & Chem 7: 01/23/21 03:03 01/23/21 03:03 Labs: Abnormal Lab Results - Last 24 Hours (Table) 01/22/21 01/22/21 01/23/21 Range/Units 03:36 19:24 03:03 APTT 21.7 L (22.0-30.0) sec Chloride 108 H (98-107) mmol/L Carbon Dioxide 20 L (22-30) mmol/L BUN 22 H (7-17) mg/dL Creatinine 1.26 H (0.52-1.04) mg/dL Glucose 122 H (74-99) mg/dL Hemoglobin A1c 6.6 H (4.0-6.0) % 01/23/21 01/23/21 Range/Units 03:03 10:34 APTT 41.4 H 71.4 H (22.0-30.0) sec Chloride (98-107) mmol/L Carbon Dioxide (22-30) mmol/L BUN (7-17) mg/dL Creatinine (0.52-1.04) mg/dL Glucose (74-99) mg/dL Hemoglobin A1c (4.0-6.0) % Microbiology - Last 24 Hours (Table) 01/22/21 17:00 Nasal Screen MRSA/MSSA - Preliminary Nasal Swab
[2021-01-23] MEDS ORDERED: FUROSEMIDE 10 MG/ML 4 ML VIAL ONE (21:35)
[2021-01-23] MEDS ORDERED: FUROSEMIDE 10 MG/ML 4 ML VIAL IV STA (21:35)
--- NOTE | 2021-01-23 21:53 | XR ---
EXAMINATION TYPE: XR chest 1V DATE OF EXAM: 01/23/2021 COMPARISON: NONE HISTORY: Short of breath TECHNIQUE: FINDINGS: There is no obvious heart failure nor confluent pneumonic infiltrate. There is some slight increased interstitial density in the lungs. There are no hilar masses. Heart size is normal. Thoraci c aorta is atheromatous. IMPRESSION: Increased interstitial density compared to recent exam. This could be acute interstitial pneumonia. Acute heart failure not excluded.
[2021-01-23] MEDS: NITROGLYCERIN-D5W PMX 50 MG in DEXTROSE/WATER 1 250ML.BAG IV SCH (21:58)
[2021-01-24 04:34] LABS: Basophils % (A) 0 %; Eosinophils # (A) 0.1 k/uL (0-0.7); Eosinophils % (A) 1 %; HCT 31.3 % (34.0-46.0); HGB 10.7 gm/dL (11.4-16.0); Lymphocytes % (A) 17 %; MCH 28.4 pg (25.0-35.0); MCHC 34.1 g/dL (31.0-37.0); MCV 83.2 fL (80.0-100.0); Mean Platelet Volume 7.9; Monocytes # (A) 0.5 k/uL (0-1.0); Monocytes % (A) 8 %; Neutrophils # (A) 3.9 k/uL (1.3-7.7); Neutrophils % (A) 71 %; Platelet Count 193 k/uL (150-450); RBC 3.77 m/uL (3.80-5.40); RDW 13.3 % (11.5-15.5); WBC 5.5 k/uL (3.8-10.6)
[2021-01-24 04:49] LABS: Partial Thromboplastin Time 54.1 sec (22.0-30.0); Prothrombin Time 10.4 sec (9.0-12.0)
[2021-01-24 05:29] LABS: Albumin 3.5 g/dL (3.5-5.0); Magnesium 2.1 mg/dL (1.6-2.3); Total Bilirubin 0.3 mg/dL (0.2-1.3)
[2021-01-24] MEDS: SODIUM CHLORIDE 0.9% 1,000 ML IV SCH (07:03)
[2021-01-24] MEDS: FAMOTIDINE 20 MG/2 ML VIAL IV SCH (08:01)
[2021-01-24] MEDS: ASPIRIN 81 MG PO SCH (08:01)
[2021-01-24] MEDS: ATORVASTATIN 40 MG TAB PO SCH (08:02)
[2021-01-24] MEDS: SERTRALINE 100 MG TAB PO SCH (08:02)
[2021-01-24] MEDS: polyethylene glycoL 3350 17 GM POWD.PACK PO SCH (08:02)
[2021-01-24] MEDS: AMITRIPTYLINE HCL 10 MG TAB PO SCH (08:02)
[2021-01-24] MEDS: METOPROLOL TARTRATE 25 MG TAB PO SCH ×2 (08:02→19:52)
[2021-01-24] MEDS: ALPRAZolam 1 MG TAB PO PRN (08:02)
[2021-01-24] MEDS: MUPIROCIN 2% OINT 22 GM TUBE NASAL SCH ×2 (08:04→20:17)
[2021-01-24] MEDS ORDERED: methIMAzole 5 MG TAB PO SCH (09:00)
[2021-01-24] MEDS ORDERED: polyethylene glycoL 3350 17 GM POWD.PACK PO SCH (09:00)
[2021-01-24] MEDS: HEPARIN SOD,PORK IN 0.45% NACL 25,000 UNIT in 0.45% NACL 1 250ML.BAG IV SCH (09:41)
--- NOTE | 2021-01-24 10:40 | P.PN ---
Subjective Progress Note Date: 01/24/21 Patient seen and examined. Still no complaints of any right lower extremity pains. No complaints of any pain anywhere. Objective - Vital Signs Vital signs: Vital Signs Temp 98.0 F 01/24/21 08:00 Pulse 60 01/24/21 10:00 Resp 26 H 01/24/21 10:00 BP 117/52 01/24/21 10:00 Pulse Ox 94 L 01/24/21 10:00 Intake & Output 01/23/21 01/24/21 01/24/21 18:59 06:59 18:59 Intake Total 2029.768 300 558.078 Output Total 905 2676 150 Balance 1124.768 -2376 408.078 Weight 70 kg Intake: IV 600 300 40 Sodium Chloride 0.9% 1, 600 300 40 000 ml @ 50 mls/hr IV . Q20H [facility] Rx#:[id number] Intake, IV Titration 209.768 278.078 Amount Heparin Sod,Pork in 0.45% 141.568 234.628 NaCl 25,000 unit In 0.45 % NaCl 1 250ml.bag @ 12 UNITS/KG/HR 8.709 mls/hr IV .Q24H [facility] Rx#: [id number] Nitroglycerin-D5w Pmx 50 68.2 43.45 mg In Dextrose/Water 1 250ml.bag @ 5 MCG/MIN 1.5 mls/hr IV .Q24H [facility] Rx#: [id number] Oral 1220 240 Output: Urine 900 2675 150 Stool 5 1 Other: Voiding Method Toilet Toilet Toilet - Exam Gen. lungs are clear bilaterally. a pleasant cooperative female in no acute distress. HEENT is normocephalic. Heart appears regular at this time.Abdomen soft. Extremity show no clubbing, cyanosis or edema. Left lower extremity with maintained palpable femoral, dorsalis pedis and posterior tibial pulses. No pulses palpated in the right lower extremity. Motor sensory intact. Slightly cooler. No rest pain. No pain with palpation. No calf pain - Labs CBC & Chem 7: 01/24/21 03:39 01/24/21 03:39 Labs: Abnormal Lab Results - Last 24 Hours (Table) 01/23/21 01/23/21 01/24/21 Range/Units 10:34 18:58 03:39 RBC (3.80-5.40) m/uL Hgb (11.4-16.0) gm/dL Hct (34.0-46.0) % APTT 71.4 H 56.1 H (22.0-30.0) sec Sodium (137-145) mmol/L BUN (7-17) mg/dL Creatinine (0.52-1.04) mg/dL Glucose (74-99) mg/dL Total Protein (6.3-8.2) g/dL Crossmatch See Detail 01/24/21 01/24/21 01/24/21 Range/Units 03:39 03:39 03:39 RBC 3.77 L (3.80-5.40) m/uL Hgb 10.7 L (11.4-16.0) gm/dL Hct 31.3 L (34.0-46.0) % APTT 54.1 H (22.0-30.0) sec Sodium 136 L (137-145) mmol/L BUN 22 H (7-17) mg/dL Creatinine 1.28 H (0.52-1.04) mg/dL Glucose 127 H (74-99) mg/dL Total Protein 6.0 L (6.3-8.2) g/dL Crossmatch Microbiology - Last 24 Hours (Table) 01/22/21 17:00 Nasal Screen MRSA/MSSA - Final Nasal Swab Staphylococcus aureus,Not MRSA Assessment and Plan Assessment: Right lower extremity arterial insufficiency Status post heart catheterization Coronary artery disease, scheduled for bypass Plan: Again long discussion had with the patient and nursing staff. No apparent pain in her right lower extremity at this time. No complaints of pain throughout the evening. Maintained on anticoagulation. Likely patient will need intervention but does not appear urgent or imminent at this point. Proceed with cardiac bypa ss. We will continue to follow along to ensure no acute changes
--- NOTE | 2021-01-24 12:54 | P.PN ---
Subjective Progress Note Date: 01/24/21 Principal diagnosis: Coronary artery disease with left main disease, NSTEMI this admission hyperthyroid discovered with preoperative labs as well as borderline diabetes with hemoglobin A1c of 6.6. Past medical history significant for hypertension, hyperlipidemia, breast cancer status post right mastectomy with chemotherapy approximately 25 years ago without radiation, colostomy for bowel rest status post reversal, previous tobacco dependence, remote history of pneumonia. The patient was seen in follow-up today 01/24/2021 at her bedside in the intensive care unit. Currently she is sitting up to the chair, is awake, alert and oriented 3 and is in no acute distress. The patient's nurse from last night reports that the patient had an episode of pulmonary edema requiring Lasix and subsequent diuresis of 3 L of urine. She remains hemodynamically stable and is currently nitroglycerin drip and she is also on heparin drip per protocol. Denies any complaints of chest pain or shortness of breath at this time. Currently she is scheduled for myocardial revascularization surgery scheduled for 01/25/2021 to be performed by Dr. Denys Flores. Oxygen saturations are 93% on room air and she is achieving 1000 mL on her incentive spirometry. Objective - Vital Signs Vital signs: Vital Signs Temp 98.0 F 01/24/21 08:00 Pulse 76 01/24/21 08:00 Resp 25 H 01/24/21 08:00 BP 164/72 01/24/21 08:00 Pulse Ox 91 L 01/24/21 08:00 Intake & Output 01/23/21 01/24/21 01/24/21 18:59 06:59 18:59 Intake Total 202.768 300 303.45 Output Total 905 2676 150 Balance 1124.768 -2376 153.45 Weight 70 kg Intake: IV 600 300 20 Sodium Chloride 0.9% 1, 600 300 20 000 ml @ 50 mls/hr IV . Q20H [facility] Rx#:[id number] Intake, IV Titration 209.768 43.45 Amount Heparin Sod,Pork in 0.45% 141.568 NaCl 25,000 unit In 0.45 % NaCl 1 250ml.bag @ 12 UNITS/KG/HR 8.709 mls/hr IV .Q24H [facility] Rx#: [id number] Nitroglycerin-D5w Pmx 50 68.2 43.45 mg In Dextrose/Water 1 250ml.bag @ 5 MCG/MIN 1.5 mls/hr IV .Q24H [facility] Rx#: [id number] Oral 1220 240 Output: Urine 900 2675 150 Stool 5 1 Other: Voiding Method Toilet Toilet Toilet - Exam CONSTITUTIONAL: Sitting up to the bedside chair in the intensive care unit, appears comfortable, cooperative, no apparent acute distress. HEENT: Neck is supple, no JVD, no lymphadenopathy. RESPIRATORY: Lungs sounds essentially clear throughout. Respirations are sym metrical and nonlabored. Currently on room air with oxygen saturations 93%. Able to achieve 1000 mL on her incentive spirometry. Strong cough. CARDIOVASCULAR: Regular rhythm and rate. S1 and S2 present, negative for S3, gallop or murmur. Palpable peripheral pulses bilaterally, Doppler pulses to her right lower extremity. Trace edema to her bilateral lower extremities. No calf pain or tenderness noted. GASTROINTESTINAL: Abdomen soft, nontender, nondistended. Active bowel sounds present 4 quadrants. Tolerating diet. No guarding or rigidity. GENITOURINARY: Christopher present for accurate I's and O's, draining clear, yellow urine. Output 1775 mL in the last 8 hours. INTEGUMENTARY: Skin is warm and dry with no evidence of clubbing or cyanosis. NEUROLOGIC: Cranial nerves II through XII intact. No focal deficits. MUSKULOSKELETAL: Able to move all extremities, strength equal bilaterally. PSYCHIATRIC: Alert and oriented to person place and time, appropriate affect, intact judgment and insight. - Allied health notes Allied health notes reviewed: nursing - Labs CBC & Chem 7: 01/24/21 03:39 01/24/21 03:39 Labs: Abnormal Lab Results - Last 24 Hours (Table) 01/23/21 01/23/21 01/24/21 Range/Units 10:34 18:58 03:39 RBC (3.80-5.40) m/uL Hgb (11.4-16.0) gm/dL Hct (34.0-46.0) % APTT 71.4 H 56.1 H (22.0-30.0) sec Sodium (137-145) mmol/L BUN (7-17) mg/dL Creatinine (0.52-1.04) mg/dL Glucose (74-99) mg/dL Total Protein (6.3-8.2) g/dL Crossmatch See Detail 01/24/21 01/24/21 01/24/21 Range/Units 03:39 03:39 03:39 RBC 3.77 L (3.80-5.40) m/uL Hgb 10.7 L (11.4-16.0) gm/dL Hct 31.3 L (34.0-46.0) % APTT 54.1 H (22.0-30.0) sec Sodium 136 L (137-145) mmol/L BUN 22 H (7-17) mg/dL Creatinine 1.28 H (0.52-1.04) mg/dL Glucose 127 H (74-99) mg/dL Total Protein 6.0 L (6.3-8.2) g/dL Crossmatch Microbiology - Last 24 Hours (Table) 01/22/21 17:00 Nasal Screen MRSA/MSSA - Final Nasal Swab Staphylococcus aureus,Not MRSA Assessment and Plan Assessment: 1. Coronary artery disease with left main disease, NSTEMI this admission 2. History of hypertension 3. Hyperlipidemia, treated, cholesterol 96, LDL 40 4. Remote history of breast cancer status post right mastectomy with chemotherapy approximately 25 years ago 5. Colostomy for bowel rest status post reversal 6. Remote history of tobacco dependence, pre-op FEV1 84% of predicted value 7. Remote history of pneumonia 8. Hyperthyroid (discovered on pre-op labs), TSH <0.015, FT4 5.21 9. Borderline diabetes, pre-op A1c 6.6% Plan: 1. Continue to maximize medical therapy with aspirin, statin, beta maría, IV heparin, IV nitroglycerin. Would avoid LAYLA/ARB/CCB for 48 hours prior to surgery to prevent intra/post op vasoplegia. 2. Tapazole started 01/22/2021 per primary care service. 3. Encourage incentive spirometry 10 times every hour while awake. 4. Pulmonology consult noted and appreciated. 5. Increase activity as tolerated. Out of bed for all meals. 5 meter walk completed per cardiac rehab yesterday 01/23/2021, time 1: 7.50 seconds, time 2: 6.86 seconds, time 3: 6.96 seconds. 6. Our plan is for off pump myocardial revascularizaton with left internal mammary artery, endoscopic vein harvest, possible left radial artery harvest, possible ligation of left atrial appendage tomorrow Thursday01/25/[address] Flores 7. Pre-op teaching to continued. STS risk score has been calculated and discussed with patient. 8. Medical management of other comorbidities per primary care and cardiology. 9. More recommendations to follow based on patient's clinical course. Time with Patient: Greater than 30
--- NOTE | 2021-01-24 13:13 | P.PN ---
Subjective Progress Note Date: 01/24/21 Principal diagnosis: Coronary artery disease, left main stenosis, non-ST elevated LA This is a very pleasant 75-year-old female patient who has a history of previous colectomy with colostomy and subsequent reversal, hyperlipidemia, hypertension, osteoarthritis, right-sided breast cancer status post mastectomy, depression. Remote smoking history. She presented to the emergency room on 01/21/2021 with complaints of left-sided chest discomfort radiating down her left arm and into her back. Echocardiogram revealed a normal left ventricular systolic function with ejection fraction 55-60%. No significant valvular disease. She was taken to the cardiac catheterization lab on 01/22/2021 and found to have eccentric 60- 70% stenosis of the left main, 80-90% eccentric lesion in the proximal portion of the left circumflex. Moderate to severe disease involving the ostium of the right coronary artery and 60% stenosis in the mid RCA. Computed tomography scan of the chest revealed atherosclerotic vascular disease. Extensive coronary artery calcification. Pleural thickening and fluid at the lung bases. Minimal atelectasis left lung base. No significant aortic valve calcification. The plan is for coronary artery bypass surgery on 01/25/2021. She is seen today in consultation in the intensive care unit. She is currently awake and alert in no acute distress. No chest pain currently. No worsening shortness of breath cough or congestion. She is maintaining O2 saturation in the mid 90s on 2 L/m nasal cannula. White count 5.8. Hemoglobin 11.7. Platelets 197. Sodium 137. Potassium 4.1. Bicarb 20. Creatinine 1.26. Urinalysis clear. Coronavirus not detected. She remains on heparin drip, nitroglycerin drip at 10 mcg/m. On 01/24/2021 patient seen in follow-up in the intensive care unit. Last night patient had an episode of acute shortness of breath, and flash pulmonary edema. Chest x-ray was obtained showing increased interstitial density related to acute interstitial edema. She was given diuretics, and she has made 3.5 L of urine output in last 24 hours, and she is in -1.2 L net fluid balance. Currently breathing much easier, she is on 2 L of oxygen pulse ox is 95%, she is in sinus mechanism, denies any chest pain this morning, she remains on heparin infusion per weight-based protocol, and nitroglycerin currently at 10 mics per kilo per minute. No repeat chest x-ray was done today, lungs are clear bilaterally. No altered mentation. Patient has also been complaining of right lower extremity pain, and a vascular surgery is consulted for right lower extremity arterial insufficiency. She is currently on oral aspirin. Today's labs have been reviewed, blood vessel, is normal at 5.5, hemoglobin is 10.7, sodium is 136, there is electrolytes were within normal limits, BUN is 22, and creatinine is 1.28 Objective - Vital Signs Vital signs: Vital Signs Temp 98.0 F 01/24/21 08:00 Pulse 61 01/24/21 12:00 Resp 23 01/24/21 12:00 BP 95/81 01/24/21 12:00 Pulse Ox 95 01/24/21 12:00 Intake & Output 01/23/21 01/24/21 01/24/21 18:59 06:59 18:59 Intake Total 2029.768 300 578.078 Output Total 905 2676 500 Balance 1124.768 -2376 78.078 Weight 70 kg Intake: IV 600 300 60 Sodium Chloride 0.9% 1, 600 300 60 000 ml @ 50 mls/hr IV . Q20H JAZ Rx#:[id number] Intake, IV Titration 209.768 278.078 Amount Heparin Sod,Pork in 0.45% 141.568 234.628 NaCl 25,000 unit In 0.45 % NaCl 1 250ml.bag @ 12 UNITS/KG/HR 8.709 mls/hr IV .Q24H JAZ Rx#: [id number] Nitroglycerin-D5w Pmx 50 68.2 43.45 mg In Dextrose/Water 1 250ml.bag @ 5 MCG/MIN 1.5 mls/hr IV .Q24H JAZ Rx#: [id number] Oral 1220 240 Output: Urine 900 2675 500 Stool 5 1 Other: Voiding Method Toilet Toilet Toilet - Exam GENERAL EXAM: Alert, very pleasant, 75-year-old white female, on 2 L of oxygen pulse ox of 95% comfortable in no apparent distress. HEAD: Normocephalic/atraumatic. EYES: Normal reaction of pupils, equal size. Conjunctiva pink, sclera white. NOSE: Clear with pink turbinates. THROAT: No erythema or exudates. NECK: No masses, no JVD, no thyroid enlargement, no adenopathy. CHEST: No chest wall deformity. Symmetrical expansion. LUNGS: Equal air entry with no crackles, wheeze, rhonchi or dullness. CVS: Regular rate and rhythm, normal S1 and S2, no gallops, no murmurs, no rubs ABDOMEN: Soft, nontender. No hepatosplenomegaly, normal bowel sounds, no guarding or rigidity. EXTREMITIES: No clubbing, no edema, no cyanosis, 2+ pulses and upper and lower extremities. MUSCULOSKELETAL: Muscle strength and tone normal. SPINE: No scoliosis or deformity SKIN: No rashes CENTRAL NERVOUS SYSTEM: Alert and oriented -3. No focal deficits, tone is normal in all 4 extremities. PSYCHIATRIC: Alert and oriented -3. Appropriate affect. Intact judgment and insight. - Labs CBC & Chem 7: 01/24/21 03:39 01/24/21 03:39 Labs: Abnormal Lab Results - Last 24 Hours (Table) 01/23/21 01/24/21 01/24/21 Range/Units 18:58 03:39 03:39 RBC 3.77 L (3.80-5.40) m/uL Hgb 10.7 L (11.4-16.0) gm/dL Hct 31.3 L (34.0-46.0) % APTT 56.1 H (22.0-30.0) sec Sodium (137-145) mmol/L BUN (7-17) mg/dL Creatinine (0.52-1.04) mg/dL Glucose (74-99) mg/dL Total Protein (6.3-8.2) g/dL Crossmatch See Detail 01/24/21 01/24/21 Range/Units 03:39 03:39 RBC (3.80-5.40) m/uL Hgb (11.4-16.0) gm/dL Hct (34.0-46.0) % APTT 54.1 H (22.0-30.0) sec Sodium 136 L (137-145) mmol/L BUN 22 H (7-17) mg/dL Creatinine 1.28 H (0.52-1.04) mg/dL Glucose 127 H (74-99) mg/dL Total Protein 6.0 L (6.3-8.2) g/dL Crossmatch Microbiology - Last 24 Hours (Table) 01/22/21 17:00 Nasal Screen MRSA/MSSA - Final Nasal Swab Staphylococcus aureus,Not MRSA Assessment and Plan Plan: Assessment: 1 Acute non-ST segment elevation myocardial infarction in a patient found to have left main disease 2 History of hypertension 3 Hyperlipidemia 4 Remote history of chronic tobacco dependence, FEV1 value 84% 5 Previous bowel resection with colostomy and subsequent reversal 6 History of right-sided breast cancer with chemotherapy and right-sided mastectomy 7 Hypothyroidism, found on this admission, initiated on Tapazole 8 History of depression Plan: Continue encouraging deep breathing and coughing CXR, CT scan, labs reviewed Surgery tomorrow on 01/25/2021 Preop FEV1 has been reviewed Patient has been sufficiently diuresed, and she is breathing much easier She is in negative fluid balance, we will avoid the dose of Lasix for today, unless she has recurrent pulm. edema I performed a history & physical examination of the patient and discussed their management with my nurse practitioner, Shelley Hathaway. I reviewed the nurse practitioner's note and agree with the documented findings and plan of care. Lung sounds are positive for diminished breath sounds throughout the lung hanson. The findings and the impression was discussed with the patient. I attest to the documentation by the nurse practitioner. Time with Patient: Less than 30
--- NOTE | 2021-01-24 15:28 | P.PN ---
Subjective Progress Note Date: 01/24/21 Patient is a pleasant 75-year-old female came in with compensative chest pressure like sensation about a stress 10 in severity on the left side of the chest radiating to the left shoulder along with the diaphoresis or shortness of breath. Patient has a classic chest pain found to have some ST-T wave changes in the leads 1 before to V6. Patient also had mildly elevated troponin because of which patient underwent cardiac catheterization which showed critical left main disease along with the moderate disease in RCA and some disease in the left circumflex as well. Patient had left bundle branch block on the EKG no other EKGs to compare with. Patient is presently on heparin drip and being evaluated for coronary artery bypass grafting at this time. 01/23/2021 Patient is found to be hyperthyroid on this hospitalization patient was a started on methimazole further workup for for hyperthyroidism can be done as an outpatient after coronary artery disease his addressed. Patient is also found to have right lower extremity arterial insufficiency for which vascular surgery is recommending continuation of anticoagulation without any further intervention at this point of time. Patient is scheduled to undergo coronary artery bypass grafting in Thursday serum creatinine appears to have worsened a bit. Patient is also on IV calcium maría for blood pressure control. Patient is also receiving preoperative antibiotics. 01/24/2021 Patient is seen in follow-up continues to be closely monitored in the ICU. Plan is for myocardial revascularization surgery with Dr. Denys Flores tomorrow. Patient per nursing staff had an episode of pulmonary edema and was given Lasix with significant diuresis noted. Patient continues on nitro and heparin drip and multiple medical consultations following including minute clerk, vascular surgery, pulmonary. Patient continues on methimazole and will need further outpatient follow-up with endocrine once stabilized. Patient will be nothing by mouth at midnight. White blood count is 5.5 with a hemoglobin of 10.7, sodium is 136 with a potassium of 4.0, BUN is 22 and creatinine is 1.28. Magnesium is found to be 2.1 today. Patient will be placed on insulin drip status post surgery per protocol and will continue to monitor. Discussed with vascular arroyo thuan and patient is currently on IV heparin and will likely be started on anticoagulation status post procedure and will follow-up outpatient for the right lower extremity vascularization. Constitutional: Denied any fatigue denied any fever. Cardio vascular: denied any chest pain, palpitations Gastrointestinal: denied any nausea vomiting Pulmonary: Denied any shortness of breath cough Neurologic denied any new focal deficits All inpatient medications were reviewed and appropriate changes in these medications as dictated in the interval history and assessment and plan. PHYSICAL EXAMINATION: GENERAL: The patient is alert and oriented x3, not in any acute distress. Well developed, well nourished. HEENT: Pupils are round and equally reacting to light. EOMI. No scleral icterus. No conjunctival pallor. Normocephalic, atraumatic. No pharyngeal erythema. No thyromegaly. CARDIOVASCULAR: S1 and S2 present. No murmurs, rubs, or gallops. PULMONARY: Chest is clear to auscultation, no wheezing or crackles. ABDOMEN: Soft, nontender, nondistended, normoactive bowel sounds. No palpable or ganomegaly. MUSCULOSKELETAL: No joint swelling or deformity. EXTREMITIES: No cyanosis, clubbing, or pedal edema. NEUROLOGICAL: Gross neurological examination did not reveal any focal deficits. SKIN: No rashes. Assessment and plan: -Non-ST segment elevation myocardial infarction, acute: Patient is status post cardiac catheterization, patient will undergo coronary artery bypass grafting because of critical LAD lesion with Dr. Denys Flores on 01/24/2021. Patient will be continued on heparin, statin, beta maría, antiplatelet therapy. -Hypertension -Hyperlipidemia -Left bundle-branch block unclear if it's a new lead prior left bundle-branch block -Hyperthyroidism: Primary hyperthyroidism continue with methimazole. Patient will need outpatient follow-up with endocrinology -Right lower extremity arterial insufficiency continuing on IV heparin, patient is also on IV calcium channel blockers. -Mild acute renal failure probably secondary to contrast, prerenal azotemia -Full code -DVT prophylaxis: Currently on heparin drip Plan: Patient will continue to be closely monitored in the ICU and is scheduled for CABG tomorrow morning with Dr. Denys Flores. Patient will be nothing by mouth at midnight. Will repeat a.m. labs and continue monitor closely. Objective - Vital Signs Vital signs: Vital Signs Temp 98.0 F 01/24/21 08:00 Pulse 64 01/24/21 15:00 Resp 21 01/24/21 15:00 BP 154/62 01/24/21 15:00 Pulse Ox 92 L 01/24/21 15:00 Intake & Output 01/23/21 01/24/21 01/24/21 18:59 06:59 18:59 Intake Total 2029.768 300 958.078 Output Total 905 2676 700 Balance 1124.768 -2376 258.078 Weight 70 kg Intake: IV 600 300 90 Sodium Chloride 0.9% 1, 600 300 90 000 ml @ 50 mls/hr IV . Q20H JAZ Rx#:[id number] Intake, IV Titration 209.768 278.078 Amount Heparin Sod,Pork in 0.45% 141.568 234.628 NaCl 25,000 unit In 0.45 % NaCl 1 250ml.bag @ 12 UNITS/KG/HR 8.709 mls/hr IV .Q24H JAZ Rx#: [id number] Nitroglycerin-D5w Pmx 50 68.2 43.45 mg In Dextrose/Water 1 250ml.bag @ 5 MCG/MIN 1.5 mls/hr IV .Q24H JAZ Rx#: [id number] Oral 1220 590 Output: Urine 900 2675 700 Stool 5 1 Other: Voiding Method Toilet Toilet Toilet - Labs CBC & Chem 7: 01/24/21 03:39 01/24/21 03:39 Labs: Abnormal Lab Results - Last 24 Hours (Table) 01/23/21 01/24/21 01/24/21 Range/Units 18:58 03:39 03:39 RBC 3.77 L (3.80-5.40) m/uL Hgb 10.7 L (11.4-16.0) gm/dL Hct 31.3 L (34.0-46.0) % APTT 56.1 H (22.0-30.0) sec Sodium (137-145) mmol/L BUN (7-17) mg/dL Creatinine (0.52-1.04) mg/dL Glucose (74-99) mg/dL Total Protein (6.3-8.2) g/dL Crossmatch See Detail 01/24/21 01/24/21 Range/Units 03:39 03:39 RBC (3.80-5.40) m/uL Hgb (11.4-16.0) gm/dL Hct (34.0-46.0) % APTT 54.1 H (22.0-30.0) sec Sodium 136 L (137-145) mmol/L BUN 22 H (7-17) mg/dL Creatinine 1.28 H (0.52-1.04) mg/dL Glucose 127 H (74-99) mg/dL Total Protein 6.0 L (6.3-8.2) g/dL Crossmatch Microbiology - Last 24 Hours (Table) 01/22/21 17:00 Nasal Screen MRSA/MSSA - Final Nasal Swab Staphylococcus aureus,Not MRSA
--- NOTE | 2021-01-24 17:50 | P.PN ---
Subjective Progress Note Date: 01/24/21 This is a 75-year-old female who was admitted to the hospital with complaints of chest pain and evidence of non-STEMI. Patient had a cardiac catheterization and was found to have ostial left main disease and also circumflex disease. There is also lesions involving the ostium of Right coronary artery and mid right coronary artery. Patient apparently had an episode of shortness of breath and pulmonary edema which responded to IV Lasix. Today patient seemed to be comfortable, sleeping flat in bed and doesn't appear in respiratory distress. Post cardiac catheterization. This seemed to be some diminished in pulses in the right leg. Patient however doesn't have any pain in the leg or mottling. Seen by vascular surgery and suggested continued and the recommended management at this time. Advised that patient be taken for bypass surgery. Patient may need further investigation and intervention the future. Patient does not have any chest pain. Otherwise he seemed to be stable. No Sigmund arrhythmias Objective - Vital Signs Vital signs: Vital Signs Temp 98.7 F 01/24/21 16:00 Pulse 62 01/24/21 16:00 Resp 12 01/24/21 16:00 BP 129/50 01/24/21 16:00 Pulse Ox 93 L 01/24/21 16:00 Intake & Output 01/23/21 01/24/21 01/24/21 18:59 06:59 18:59 Intake Total 2029.768 300 968.078 Output Total 905 2676 701 Balance 1124.768 -2376 267.078 Weight 70 kg Intake: IV 600 300 100 Sodium Chloride 0.9% 1, 600 300 100 000 ml @ 50 mls/hr IV . Q20H JAZ Rx#:[id number] Intake, IV Titration 209.768 278.078 Amount Heparin Sod,Pork in 0.45% 141.568 234.628 NaCl 25,000 unit In 0.45 % NaCl 1 250ml.bag @ 12 UNITS/KG/HR 8.709 mls/hr IV .Q24H JAZ Rx#: [id number] Nitroglycerin-D5w Pmx 50 68.2 43.45 mg In Dextrose/Water 1 250ml.bag @ 5 MCG/MIN 1.5 mls/hr IV .Q24H JAZ Rx#: [id number] Oral 1220 590 Output: Urine 900 2675 700 Stool 5 1 1 Other: Voiding Method Toilet Toilet Toilet - Exam GENERAL EXAM: Patient is alert and oriented and doesn't appear to be in any acute distress HEENT: Normocephalic. Normal reaction of pupils, equal size, normal range of extraocular motion. No erythema or exudates in the throat. NECK: No masses, no nuchal rigidity. CHEST: No chest wall deformity. LUNGS: Equal air entry with no crackles or wheeze. HEART: S1 and S2 normal with no audible mumurs or gallops. Regular rhythm, femorals equal on both sides.. ABDOMEN: No hepatosplenomegaly, normal bowel sounds, no guarding or rigidity. SKIN: No rashes CENTRAL NERVOUS SYSTEM: No focal deficits. EXTREMITIES: No cyanosis, clubbing or edema. - Labs CBC & Chem 7: 01/24/21 03:39 01/24/21 03:39 Labs: Abnormal Lab Results - Last 24 Hours (Table) 01/23/21 01/24/21 01/24/21 Range/Units 18:58 03:39 03:39 RBC 3.77 L (3.80-5.40) m/uL Hgb 10.7 L (11.4-16.0) gm/dL Hct 31.3 L (34.0-46.0) % APTT 56.1 H (22.0-30.0) sec Sodium (137-145) mmol/L BUN (7-17) mg/dL Creatinine (0.52-1.04) mg/dL Glucose (74-99) mg/dL Total Protein (6.3-8.2) g/dL Crossmatch See Detail 01/24/21 01/24/21 Range/Units 03:39 03:39 RBC (3.80-5.40) m/uL Hgb (11.4-16.0) gm/dL Hct (34.0-46.0) % APTT 54.1 H (22.0-30.0) sec Sodium 136 L (137-145) mmol/L BUN 22 H (7-17) mg/dL Creatinine 1.28 H (0.52-1.04) mg/dL Glucose 127 H (74-99) mg/dL Total Protein 6.0 L (6.3-8.2) g/dL Crossmatch Microbiology - Last 24 Hours (Table) 01/22/21 17:00 Nasal Screen MRSA/MSSA - Final Nasal Swab Staphylococcus aureus,Not MRSA Assessment and Plan (1) CAD (coronary artery disease) Current Visit: Yes Status: Acute Code(s): I25.10 - ATHSCL HEART DISEASE OF [place] CORONARY ARTERY W/O ANG PCTRS SNOMED Code(s): 19806328 (2) Acute non-ST elevation myocardial infarction (NSTEMI) Current Visit: Yes Status: Acute Code(s): I21.4 - NON-ST ELEVATION (NSTEMI) MYOCARDIAL INFARCTION SNOMED Code(s): 170306773 (3) History of breast cancer Current Visit: Yes Status: Acute Code(s): Z85.3 - PERSONAL HISTORY OF MALIGNANT NEOPLASM OF BREAST SNOMED Code(s): 936379913 (4) Hyperlipidemia Current Visit: Yes Status: Acute Code(s): E78.5 - HYPERLIPIDEMIA, UNSPECIFIED SNOMED Code(s): 59253263 Plan: Continue current management with IV heparin and also nitroglycerin. Diuretics as needed. Continue the beta blockers lipid-lowering agents. CABG as planned
[2021-01-24] MEDS: MORPHINE SULFATE 4 MG/ML SYRINGE IV PRN (19:52)
[2021-01-25] MEDS: SODIUM CHLORIDE 0.9% 1,000 ML IV SCH (00:35)
[2021-01-25 04:37] LABS: Basophils % (A) 0 %; Eosinophils # (A) 0.1 k/uL (0-0.7); Eosinophils % (A) 2 %; HCT 30.4 % (34.0-46.0); HGB 10.4 gm/dL (11.4-16.0); Lymphocytes # (A) 0.9 k/uL (1.0-4.8); Lymphocytes % (A) 18 %; MCH 28.3 pg (25.0-35.0); MCHC 34.2 g/dL (31.0-37.0); MCV 82.9 fL (80.0-100.0); Mean Platelet Volume 8.3; Monocytes # (A) 0.3 k/uL (0-1.0); Monocytes % (A) 6 %; Neutrophils # (A) 3.6 k/uL (1.3-7.7); Neutrophils % (A) 71 %; Platelet Count 174 k/uL (150-450); RBC 3.67 m/uL (3.80-5.40); RDW 12.9 % (11.5-15.5); WBC 5.1 k/uL (3.8-10.6)
[2021-01-25 04:51] LABS: Albumin 3.5 g/dL (3.5-5.0); Calcium 9.1 mg/dL (8.4-10.2); Potassium 4.1 mmol/L (3.5-5.1); Total Bilirubin 0.3 mg/dL (0.2-1.3); Total Protein 6.2 g/dL (6.3-8.2)
[2021-01-25] MEDS ORDERED: PHENYLEPHRINE 40 MG in SODIUM CHLORIDE 0.9% 250 ML IV ONE (05:00)
[2021-01-25] MEDS ORDERED: NOREPINEPHRINE 4 MG in SODIUM CHLORIDE 0.9% 250 ML IV SCH (05:00)
[2021-01-25] MEDS ORDERED: NITROGLYCERIN-D5W PMX 50 MG in DEXTROSE/WATER 1 250ML.BAG IV SCH ×2 (05:00→13:05)
[2021-01-25] MEDS ORDERED: PROTAMINE SULFATE 250 MG in EMPTY BAG 1 BAG IV ONE (05:00)
[2021-01-25] MEDS ORDERED: CLEVIDIPINE BUTYRATE 25 MG in EMPTY BAG 1 BAG IV SCH (05:00)
[2021-01-25] MEDS ORDERED: INSULIN REGULAR 100 UNIT in SODIUM CHLORIDE 0.9% 100 ML IV SCH ×2 (05:00→13:05)
[2021-01-25] MEDS ORDERED: MANNITOL 25% 12.5 GM/50 ML VIAL IV ONE ×2 (05:00)
[2021-01-25] MEDS ORDERED: ASPIRIN 325 MG TAB PO ONE (05:00)
[2021-01-25] MEDS ORDERED: NITROGLYCERIN-D5W PMX 25 MG/250 ML BTL IV ONE (05:00)
[2021-01-25] MEDS ORDERED: CHLORHEXIDINE GLUCONATE 15 ML CUP MUCOUS MEM ONE (05:00)
[2021-01-25] MEDS ORDERED: HEPARIN SODIUM 1,000 UN/ML (10ML VL) IV ONE (05:00)
[2021-01-25] MEDS ORDERED: PHENYLEPHRINE 10 MG/ML VIAL IV ONE (05:00)
[2021-01-25] MEDS ORDERED: DILTIAZEM 125 MG in SODIUM CHLORIDE 0.9% 100 ML IV SCH (05:00)
[2021-01-25] MEDS ORDERED: METOPROLOL TARTRATE 12.5 MG TAB PO ONE (05:00)
[2021-01-25] MEDS ORDERED: CALCIUM CHLORIDE 100 MG/ML 10 ML SYRINGE IVP ONE (05:00)
[2021-01-25] MEDS ORDERED: PROTAMINE SULFATE 10 MG/ML 25 ML VIAL IV ONE (05:00)
[2021-01-25] MEDS ORDERED: TRANEXAMIC ACID 2,000 MG in SODIUM CHLORIDE 0.9% 80 ML IV ONE (05:00)
[2021-01-25] MEDS ORDERED: MAGNESIUM SULFATE SYG 4.06 MEQ/ML SYRINGE IV ONE (05:00)
[2021-01-25] MEDS ORDERED: PAPAVERINE 360 MG in SODIUM CHLORIDE 0.9% 90 ML IV ONE (05:00)
[2021-01-25] MEDS ORDERED: ALBUMIN HUMAN 5% 500 ML in EMPTY BAG 1 BAG IVPB ONE ×6 (05:00)
[2021-01-25] MEDS ORDERED: ALBUMIN HUMAN 25% 50 ML in EMPTY BAG 1 BAG IVPB ONE (05:00)
[2021-01-25] MEDS ORDERED: SODIUM BICARB 8.4% 50 ML SYR (1 MEQ/ML) IV ONE (05:00)
[2021-01-25] MEDS ORDERED: HEPARIN SODIUM,PORCINE 5,000 UNIT in SODIUM CHLORIDE 0.9% 500 ML 500 ML IV ONE (05:00)
[2021-01-25] MEDS ORDERED: ATORVASTATIN 10 MG TAB PO ONE (05:00)
[2021-01-25] MEDS: MORPHINE SULFATE 4 MG/ML SYRINGE IV PRN (05:01)
[2021-01-25] MEDS ORDERED: PHENYLEPHRINE-0.9% NACL SYG 1,000 MCG/10 ML SYRINGE ONE (07:46)
[2021-01-25] MEDS ORDERED: VECURONIUM 10 MG VIAL IV ONE (07:46)
[2021-01-25] MEDS ORDERED: HEPARIN SODIUM,PORCINE 10,000 UNIT/ML 1 ML VIAL ONE (07:46)
[2021-01-25] MEDS ORDERED: PROTAMINE SULFATE 10 MG/ML 5 ML VIAL IV ONE (07:46)
[2021-01-25] MEDS ORDERED: SODIUM CHLORIDE 0.9% IRRIG 1,000 ML BTL IRRIGATION ONE (07:46)
[2021-01-25] MEDS ORDERED: MIDAZOLAM 2 MG/2 ML VIAL ONE (07:46)
[2021-01-25] MEDS ORDERED: NITROGLYCERIN-D5W PMX 50 MG/250 ML BOTTLE IV ONE (07:46)
[2021-01-25] MEDS ORDERED: ePHEDrine SULFATE/0.9% NACL/PF 50 MG/5 ML SYRINGE IV ONE (07:46)
[2021-01-25] MEDS ORDERED: SODIUM BICARB 8.4% 50 ML SYR (1 MEQ/ML) ONE (07:46)
[2021-01-25] MEDS ORDERED: fentaNYL (PF) 50 MCG/ML 50 ML VIAL ONE (07:46)
[2021-01-25] MEDS ORDERED: CALCIUM CHLORIDE 100 MG/ML 10 ML SYRINGE ONE (07:46)
[2021-01-25] MEDS ORDERED: PROPOFOL 10 MG/ML 20 ML VIAL IV ONE (07:46)
[2021-01-25] MEDS ORDERED: ALBUMIN HUMAN 5% (25gm) 500 ML VIAL IVPB ONE (07:46)
[2021-01-25 08:40] LABS: ABG Base Excess -1.3 mmol/L; ABG Glucose Whole Blood 106 mg/dL (75-99); ABG HCO3 23 mmol/L (21-25); ABG Hematocrit 27 % (34.0-46.0); ABG Ionized Calcium 4.9 mg/dL (4.5-5.3); ABG Lactic Acid Whole Blood 1.4 mmol/L (0.5-1.6); ABG Oxygen Saturation 99.4 % (94-97); ABG PCO2 38 mmHg (35-45); ABG PO2 154 mmHg (83-108); ABG Potassium Whole Blood 3.9 mmol/L (3.4-4.5); ABG Sodium Whole Blood 140 mmol/L (135-146); ABG TCO2 25 mmol/L (19-24)
--- NOTE | 2021-01-25 09:47 | P.ANPRN ---
Procedure Note - Anesthesia - Invasive Line Right Central Line Time Out Performed: Yes Date of Procedure: 01/25/21 Time of Procedure: 07:16 Location of Patient: PreOp Preparation: Sterile Prep, Sterile Dressing Arterial Line Location: Radial Ultrasound Used: Yes Purpose - Visualization and Identification of Vasculature: Yes Needle Guage: 18g angio Image Stored and Saved: Yes Narrative: Central line placement per sterile protocol utilized. +lido +angio +cvp +jwire +uneventful dilation and introduction right IJ cordis. Free flow non pulsitile
[2021-01-25] MEDS: ceFAZolin 1,000 MG in SODIUM CHLORIDE 0.9% IRRIGATIO 1,000 ML IRRIGATION ONE ×2 (09:53→12:29)
[2021-01-25 10:27] LABS: ABG Base Excess -2.9 mmol/L; ABG Glucose Whole Blood 131 mg/dL (75-99); ABG HCO3 22 mmol/L (21-25); ABG Hematocrit 26 % (34.0-46.0); ABG Ionized Calcium 4.6 mg/dL (4.5-5.3); ABG Lactic Acid Whole Blood 0.7 mmol/L (0.5-1.6); ABG Oxygen Saturation 99.8 % (94-97); ABG PCO2 35 mmHg (35-45); ABG PO2 185 mmHg (83-108); ABG Potassium Whole Blood 4.1 mmol/L (3.4-4.5); ABG Sodium Whole Blood 140 mmol/L (135-146); ABG TCO2 23 mmol/L (19-24)
[2021-01-25 10:56] LABS: ABG Glucose Whole Blood 209 mg/dL (75-99); ABG HCO3 24 mmol/L (21-25); ABG Hematocrit 27 % (34.0-46.0); ABG Ionized Calcium 4.6 mg/dL (4.5-5.3); ABG Oxygen Saturation 99.3 % (94-97); ABG PCO2 42 mmHg (35-45); ABG PH 7.37 (7.35-7.45); ABG PO2 144 mmHg (83-108); ABG Potassium Whole Blood 4.5 mmol/L (3.4-4.5); ABG Sodium Whole Blood 140 mmol/L (135-146); ABG TCO2 26 mmol/L (19-24)
[2021-01-25 11:35] LABS: ABG Base Excess -1.7 mmol/L; ABG Glucose Whole Blood 165 mg/dL (75-99); ABG HCO3 24 mmol/L (21-25); ABG Hematocrit 26 % (34.0-46.0); ABG Ionized Calcium 4.7 mg/dL (4.5-5.3); ABG Lactic Acid Whole Blood 1.6 mmol/L (0.5-1.6); ABG Oxygen Saturation 99.3 % (94-97); ABG PCO2 45 mmHg (35-45); ABG PH 7.34 (7.35-7.45); ABG PO2 146 mmHg (83-108); ABG Potassium Whole Blood 3.8 mmol/L (3.4-4.5); ABG Sodium Whole Blood 141 mmol/L (135-146); ABG TCO2 26 mmol/L (19-24)
[2021-01-25 11:59] LABS: ABG Base Excess -2.1 mmol/L; ABG Glucose Whole Blood 149 mg/dL (75-99); ABG HCO3 24 mmol/L (21-25); ABG Hematocrit 26 % (34.0-46.0); ABG Ionized Calcium 5.5 mg/dL (4.5-5.3); ABG Lactic Acid Whole Blood 1.1 mmol/L (0.5-1.6); ABG PCO2 47 mmHg (35-45); ABG PH 7.32 (7.35-7.45); ABG PO2 141 mmHg (83-108); ABG Potassium Whole Blood 3.4 mmol/L (3.4-4.5); ABG Sodium Whole Blood 142 mmol/L (135-146); ABG TCO2 26 mmol/L (19-24)
[2021-01-25 12:13] LABS: ABG Lactic Acid Whole Blood 2.1 mmol/L (0.5-1.6)
[2021-01-25] MEDS ORDERED: ONDANSETRON 4 MG/2 ML VIAL IVP PRN (13:05)
[2021-01-25] MEDS ORDERED: AMIODARONE 360 MG in DEXTROSE 5% IN WATER 200 ML IV PRN ×2 (13:05)
[2021-01-25] MEDS ORDERED: Phosphorus Replacement Protoco 1 EACH MISC MISCELLANE PRN (13:05)
[2021-01-25] MEDS ORDERED: CALCIUM GLUCONATE 2 GM in SODIUM CHLORIDE 0.9% 100 ML IVPB PRN (13:05)
[2021-01-25] MEDS ORDERED: Potassium Replacement Protocol 1 EACH MISC MISCELLANE PRN (13:05)
[2021-01-25] MEDS ORDERED: DEXTROSE 5% IN WATER 100 ML with AMIODARONE 150 MG IV PRN (13:05)
[2021-01-25] MEDS ORDERED: IPRATROPIUM-ALBUTEROL 3 ML NEB INHALATION PRN (13:05)
[2021-01-25] MEDS ORDERED: Magnesium Replacement Protocol 1 EACH MISC MISCELLANE PRN (13:05)
[2021-01-25] MEDS ORDERED: BENZOCAINE/MENTHOL LOZENG 1 EACH LOZENGE MUCOUS MEM PRN (13:05)
[2021-01-25] MEDS ORDERED: METOCLOPRAMIDE 5 MG/ML 2 ML VIAL IVP PRN (13:05)
[2021-01-25] MEDS ORDERED: AMIODARONE 450 MG in DEXTROSE 5% IN WATER 250 ML IV PRN ×2 (13:05)
--- NOTE | 2021-01-25 13:08 | P.OP ---
Date of Procedure: 01/25/21 Preoperative Diagnosis: CAD, NSTEMI Postoperative Diagnosis: same Procedure(s) Performed: OPCAB3 with WESLEY to LAD, left radial artery graft to obtuse marginal, saphenous vein graft to posterior lateral branch of the right coronary artery. Endovascular vein harvest. Endotracheal radial harvest. Occlusion of left atrial appendage with 35 mm Atriclip Implants: 35mm Atriclip Anesthesia: GETA Surgeon: Denys Flores Classroom Paraprofessional #1: Moreno Wong Estimated Blood Loss (ml): 200 IV fluids (ml): 2,000 Urine output (ml): 500 Pathology: none sent Condition: stable Disposition: ICU Indications for Procedure: 75-year-old female who presented with chest pain and shortness of breath. She was found to have elevated troponins. Cardiac catheterization demonstrated tight left main coronary artery disease as well as significant blockage in the right and circumflex coronary arteries. Operative Findings: Bilateral pleural effusions. Significant calcification of the ascending aorta anteriorly. Diffuse proximal calcific disease of the coronary arteries. Good conduits and small but otherwise reasonable coronary targets. MARY demonstrated relatively normal ventricular function, normal aortic valve, mild tricuspid and mitral regurgitation. Description of Procedure: The patient was brought to the operating room, placed supine on the operating room table, anesthetized and intubated. Monitoring lines had been placed in the preop holding area. General anesthesia was induced and the patient was intubated. Her lower lower extremities left upper extremity and her sterilely prepped and draped. The left greater saphenous vein was harvested from the left thigh with endovascular harvest technique. The left radial artery was harvested from the left forearm with endovascular harvest technique. A sternotomy was performed, the left hemisternum was retracted upwards and the left internal mammary artery harvested on a vascularized pedicle left intact on its origin from the subclavian and divided distally. Retractor was placed. The patient was systemically heparinized. Pericardium was opened in the midline. Heart was exposed with pericardial sutures and suction stabilization was used during distal anastomosis. A CTs remained greater than and 250 during grafting. We started by placing a 35 mm AtriCure clip on the base of the left atrial appendage. MARY had demonstrated no evidence of thrombus in the left atrial appendage. Next the WESLEY was tunneled into the pericardium and the LAD was opened in its midportion. Proximally it was heavily calcified but it was opened once it became soft. Blood flow was controlled with a 1.5 mm flow through it was a 1.75 mm vessel. WESLEY to LAD the anastomosis was performed with running 8- 0 Prolene suture. On completion of the anastomosis the flow through was removed effectively probing the proximal and distal portion of the anastomosis. Suture was tied with good resultant hemostasis. The OWEN pedicle was then tacked surrounding epicardium with 6-0 silk sutures. Next the inferior wall of the heart was exposed. The PDA was very small but the posterior lateral branch was a good vessel. It was stabilized and opened proximally. Was a 1.5 mm vessel and blood flow was controlled with a 1.5 mm flow through. This vein was anastomosed in end-to-side fashion with running 7-0 Prolene suture. On completion of the anastomosis the flow through was removed effectively probing the proximal distal portion of the anastomosis. Suture was tied with good resultant hemostasis. The vein was of more than adequate length to reach the ascending aorta. Next the lateral wall of the heart was exposed. The marginal branch was a diffusely diseased vessel. It was grafted in its midportion and a soft spot. And blood flow control with a 1.5 mm flow through. It was a 1.5 mm vessel. Radial artery was anastomosed in end-to-side fashion with running 7-0 Prolene suture. On completion anastomosis the flow through was removed effectively from the proximal distal portion anastomosis. Suture was tied with good resultant hemostasis.Heart was lowered into anatomic position. Radial artery was brought beneath the WESLEY and was of good length to reach the ascending aorta. Because of the severe disease in the ascending aorta it was decided to place a single heartstring device in the distal ascending aorta at a soft spot anteriorly. The heartstring deployed here successfully. Proximal anastomosis of the saphenous vein to the ascending aorta was performed with running 5-0 Prolene suture. The heartstring device was removed and the suture tied and good hemostasis obtained. Bulldog clamps were placed on the saphenous vein graft just beyond the proximal anastomosis and more distally. A vertical venotomy was performed and the proximal anastomosis of the radial artery was taken off here with running 7-0 Prolene suture. Lesion of this anastomosis it was de-aired by backbleeding, the suture was tied and good hemostasis obtained. Inflow was open. Good hemostasis was now noted at all anastomoses. The grafts lay well with good lengths. Heparin was now reversed with protamine. Bilateral pleural spaces were drained with 32-Japanese chest tubes. The mediastinum was drained with a 36-Japanese chest tube. The mediastinum irrigated with antibiotic solution. Sternum was closed with 6 Mersilene bands. WFascia was closed with 0 Ethibond. Subcutaneous and subcuticular layers were closed with layers of Vicryl suture. Dry sterile dressings were applied and the patient was transferred to the ICU in stable condition.
[2021-01-25] MEDS ORDERED: ALBUMIN HUMAN 5% 250 ML IVPB ONE (13:09)
[2021-01-25 13:12] LABS: Glucose,Whole Blood 158 mg/dL (75-99)
--- NOTE | 2021-01-25 13:13 | P.PN ---
Subjective Progress Note Date: 01/25/21 Principal diagnosis: Coronary artery disease, left main stenosis, non-ST elevated CO This is a very pleasant 75-year-old female patient who has a history of previous colectomy with colostomy and subsequent reversal, hyperlipidemia, hypertension, osteoarthritis, right-sided breast cancer status post mastectomy, depression. Remote smoking history. She presented to the emergency room on 01/21/2021 with complaints of left-sided chest discomfort radiating down her left arm and into her back. Echocardiogram revealed a normal left ventricular systolic function with ejection fraction 55-60%. No significant valvular disease. She was taken to the cardiac catheterization lab on 01/22/2021 and found to have eccentric 60- 70% stenosis of the left main, 80-90% eccentric lesion in the proximal portion of the left circumflex. Moderate to severe disease involving the ostium of the right coronary artery and 60% stenosis in the mid RCA. Computed tomography scan of the chest revealed atherosclerotic vascular disease. Extensive coronary artery calcification. Pleural thickening and fluid at the lung bases. Minimal atelectasis left lung base. No significant aortic valve calcification. The plan is for coronary artery bypass surgery on 01/25/2021. She is seen today in consultation in the intensive care unit. She is currently awake and alert in no acute distress. No chest pain currently. No worsening shortness of breath cough or congestion. She is maintaining O2 saturation in the mid 90s on 2 L/m nasal cannula. White count 5.8. Hemoglobin 11.7. Platelets 197. Sodium 137. Potassium 4.1. Bicarb 20. Creatinine 1.26. Urinalysis clear. Coronavirus not detected. She remains on heparin drip, nitroglycerin drip at 10 mcg/m. On 01/24/2021 patient seen in follow-up in the intensive care unit. Last night patient had an episode of acute shortness of breath, and flash pulmonary edema. Chest x-ray was obtained showing increased interstitial density related to acute interstitial edema. She was given diuretics, and she has made 3.5 L of urine output in last 24 hours, and she is in -1.2 L net fluid balance. Currently breathing much easier, she is on 2 L of oxygen pulse ox is 95%, she is in sinus mechanism, denies any chest pain this morning, she remains on heparin infusion per weight-based protocol, and nitroglycerin currently at 10 mics per kilo per minute. No repeat chest x-ray was done today, lungs are clear bilaterally. No altered mentation. Patient has also been complaining of right lower extremity pain, and a vascular surgery is consulted for right lower extremity arterial insufficiency. She is currently on oral aspirin. Today's labs have been reviewed, blood vessel, is normal at 5.5, hemoglobin is 10.7, sodium is 136, there is electrolytes were within normal limits, BUN is 22, and creatinine is 1.28 On 01/25/2021 patient is seen in follow-up in the intensive care unit. She seen in the postoperative period, post off-pump three-vessel coronary artery bypass grafting, with WESLEY to the LAD, and right radial arterial graft to the OM, SVG to the MARJ, left lower extremity endoscopic vein harvesting, and left radial artery endoscopic harvesting and exclusion of the left atrial appendage. Patient is sedated, and intubated on mechanical ventilator, currently on assist- control mode of ventilation with a rate of 14, tidal volume is 400, FiO2 100% and PEEP of 5. Postoperative blood gas and chest x-ray is pending, patient is currently on Cardizem drip at 5 mg per hour, nitroglycerin is at 5 mics per kilo per minute, Diprivan and is at 20 mics per kilo per minute, and 0.9 normal saline to 50 ML per hour. EBL Intra-Op was 1 L, patient received crystalloids and 750 ML of 5% albumin Intra-Op. Patient has right and left and mediastinal chest tubes in place with small amount of sanguinous output in the Pleur-evac's. No air leak noted. Patient is in sinus mechanism. PA pressure 16/9, CVP 24, and CO/CI are 2.7 and 1.6 respectively. Patient is in sinus mechanism, liver she is bradycardic with a rate of 44. Objective - Vital Signs Vital signs: Vital Signs Temp 98.8 F 01/25/21 04:00 Pulse 64 01/25/21 06:00 Resp 11 L 01/25/21 06:00 BP 160/72 01/25/21 06:00 Pulse Ox 94 L 01/25/21 06:00 Intake & Output 01/24/21 01/25/21 01/25/21 18:59 06:59 18:59 Intake Total 1238.078 368.816 104 Output Total 4619 781 7959 Balance 137.078 -331.184 -1046 Weight 70.4 kg Intake: IV 120 120 104 Sodium Chloride 0.9% 1, 120 120 000 ml @ 50 mls/hr IV . Q20H JAZ Rx#:[id number] Intake, IV Titration 278.078 248.816 Amount Heparin Sod,Pork in 0.45% 234.628 248.816 NaCl 25,000 unit In 0.45 % NaCl 1 250ml.bag @ 12 UNITS/KG/HR 8.709 mls/hr IV .Q24H JAZ Rx#: [id number] Nitroglycerin-D5w Pmx 50 43.45 mg In Dextrose/Water 1 250ml.bag @ 5 MCG/MIN 1.5 mls/hr IV .Q24H JAZ Rx#: [id number] Oral 840 Output: Urine 1100 700 150 Stool 1 Estimated Blood Loss 1000 Other: Voiding Method Toilet Bedside Commode # Voids 0 - Exam GENERAL EXAM: Sedated, intubated 75-year-old white female, on assist control mode of ventilation HEAD: Normocephalic/atraumatic. EYES: Normal reaction of pupils, equal size. Conjunctiva pink, sclera white. NOSE: Clear with pink turbinates. THROAT: No erythema or exudates. NECK: No masses, no JVD, no thyroid enlargement, no adenopathy. CHEST: No chest wall deformity. Symmetrical expansion. Midsternal incision remained dry and intact, mediastinal and right and left pleural chest tube sites are clean dry and intact, tested connected to Pleur-evac, with small amount of sanguinous output, no evidence of air leak noted LUNGS: Equal air entry with no crackles, wheeze, rhonchi or dullness. CVS: Regular rate and rhythm, normal S1 and S2, no gallops, no murmurs, no rubs ABDOMEN: Soft, nontender. No hepatosplenomegaly, normal bowel sounds, no guarding or rigidity. EXTREMITIES: No clubbing, no edema, no cyanosis, 2+ pulses and upper and lower extremities. Right radial arterial graft site is covered with surgical dressing, SANTY drain is in place with small amount of sanguinous output, compressed and draining MUSCULOSKELETAL: Muscle strength and tone normal. SPINE: No scoliosis or deformity SKIN: No rashes CENTRAL NERVOUS SYSTEM: Sedated, intubated. No focal deficits, tone is normal in all 4 extremities. - Labs CBC & Chem 7: 01/25/21 04:22 01/25/21 04:22 Labs: Abnormal Lab Results - Last 24 Hours (Table) 01/24/21 01/25/21 01/25/21 Range/Units 03:39 04:22 04:22 RBC 3.67 L (3.80-5.40) m/uL Hgb 10.4 L (11.4-16.0) gm/dL Hct 30.4 L (34.0-46.0) % Lymphocytes # 0.9 L (1.0-4.8) k/uL ABG pH (7.35-7.45) ABG pCO2 (35-45) mmHg ABG pO2 (83-108) mmHg ABG Total CO2 (19-24) mmol/L ABG O2 Saturation (94-97) % ABG Hematocrit (34.0-46.0) % ABG Ionized Calcium (4.5-5.3) mg/dL ABG Glucose (75-99) mg/dL ABG Lactic Acid (0.5-1.6) mmol/L Hemoglobin (11.4-16.0) gm/dL BUN 22 H (7-17) mg/dL Creatinine 1.22 H (0.52-1.04) mg/dL Glucose 115 H (74-99) mg/dL Total Protein 6.2 L (6.3-8.2) g/dL Arterial Blood Glucose (75-99) mg/dL Crossmatch See Detail 01/25/21 01/25/21 01/25/21 Range/Units 08:43 10:30 10:59 RBC (3.80-5.40) m/uL Hgb (11.4-16.0) gm/dL Hct (34.0-46.0) % Lymphocytes # (1.0-4.8) k/uL ABG pH (7.35-7.45) ABG pCO2 (35-45) mmHg ABG pO2 154 H 185 H 144 H (83-108) mmHg ABG Total CO2 25 H 26 H (19-24) mmol/L ABG O2 Saturation 99.4 H 99.8 H 99.3 H (94-97) % ABG Hematocrit 27 L 26 L 27 L (34.0-46.0) % ABG Ionized Calcium (4.5-5.3) mg/dL ABG Glucose 106 H 131 H 209 H (75-99) mg/dL ABG Lactic Acid 2.1 H (0.5-1.6) mmol/L Hemoglobin 8.9 L 8.5 L 8.9 L (11.4-16.0) gm/dL BUN (7-17) mg/dL Creatinine (0.52-1.04) mg/dL Glucose (74-99) mg/dL Total Protein (6.3-8.2) g/dL Arterial Blood Glucose 106 H 131 H 209 H (75-99) mg/dL Crossmatch 01/25/21 01/25/21 Range/Units 11:38 12:03 RBC (3.80-5.40) m/uL Hgb (11.4-16.0) gm/dL Hct (34.0-46.0) % Lymphocytes # (1.0-4.8) k/uL ABG pH 7.34 L 7.32 L (7.35-7.45) ABG pCO2 47 H (35-45) mmHg ABG pO2 146 H 141 H (83-108) mmHg ABG Total CO2 26 H 26 H (19-24) mmol/L ABG O2 Saturation 99.3 H 99.0 H (94-97) % ABG Hematocrit 26 L 26 L (34.0-46.0) % ABG Ionized Calcium 5.5 H (4.5-5.3) mg/dL ABG Glucose 165 H 149 H (75-99) mg/dL ABG Lactic Acid (0.5-1.6) mmol/L Hemoglobin 8.4 L 8.5 L (11.4-16.0) gm/dL BUN (7-17) mg/dL Creatinine (0.52-1.04) mg/dL Glucose (74-99) mg/dL Total Protein (6.3-8.2) g/dL Arterial Blood Glucose 165 H 149 H (75-99) mg/dL Crossmatch Assessment and Plan Plan: Assessment: #1. Acute non-ST segment elevation myocardial infarction in a patient found to have left main disease, status post off-pump 3 vessel coronary artery bypass grafting, with a WESLEY to LAD, and right radial arterial graft, endovascular vein harvest of the saphenous venous graft from the left leg, and endovascular harvest of the right radial arterial graft, exclusion of the left atrial appendage, postoperative day #0 #2. Routine postoperative ventilator management #3. Acute blood loss anemia related to sternotomy and coronary artery bypass surgery, normal outcome of surgery #4. Hypertension #5. Hyperlipidemia #6. Former smoker, preop FEV1 was 84% of predicted #7. Previous history of bowel resection with colostomy and subsequent reversal #8. History of right-sided breast cancer with chemotherapy and right-sided mastectomy #9. Hyperthyroidism, on Methimazole #10. History of depression Plan: Hemodynamically patient is stable, in sinus mechanism, no significant bleeding out of the chest tubes Postoperative blood gas and chest x-ray are pending Continue nebulized bronchodilators 4 times daily and every 2 hours as needed while on the vent, and 4 times a day once extubated We'll proceed with spontaneous awakening trial spontaneous breathing trial We'll proceed with extubation per protocol if his breathing trials are satisfactory Daily labs and chest x-rays GI and DVT prophylaxis per CT surgery Continue close hemodynamic monitoring in the intensive care unit We'll continue to follow I performed a history & physical examination of the patient and discussed their management with my nurse practitioner, Shelley Hathaway. I reviewed the nurse practitioner's note and agree with the documented findings and plan of care. Lung sounds are positive for diminished breath sounds throughout the lung fiel ds. The findings and the impression was discussed with the patient. I attest to the documentation by the nurse practitioner. Time with Patient: Greater than 30
[2021-01-25] MEDS ORDERED: DEXTROSE/WATER 1 250ML.BAG with DOPamine DRIP 800 MG IV SCH (13:15)
[2021-01-25 13:24] LABS: ABG Base Excess -1.5 mmol/L; ABG HCO3 24 mmol/L (21-25); ABG PCO2 45 mmHg (35-45); ABG PH 7.34 (7.35-7.45); ABG PO2 >400 mmHg (83-108); ABG TCO2 26 mmol/L (19-24); Allen Test Performed? Yes
[2021-01-25] MEDS ORDERED: DOPamine DRIP 250 ML IV ONE (13:26)
[2021-01-25] MEDS: DILTIAZEM 125 MG in SODIUM CHLORIDE 0.9% 100 ML IV SCH (13:41)
[2021-01-25] MEDS: LACTATED RINGERS 1,000 ML IV SCH (13:41)
--- NOTE | 2021-01-25 13:47 | XR ---
EXAMINATION TYPE: XR chest 1V portable DATE OF EXAM: 01/25/2021 COMPARISON: 01/23/2021 INDICATION: Postop open heart surgery TECHNIQUE: Single frontal view of the chest is obtained. FINDINGS: The heart size is normal. The pulmonary vasculature is normal. Focal consolidation is not identified. Some mild scattered filtrates are present Subcutaneous air is present on the left. Bilateral chest tubes are present. No pneumothorax is eviden t. Progressive mediastinal tube is in the midline. [place] catheter tip is in the main pulmonary ar panfilo region. Endotracheal tube tip is low lying 1.5 cm above the alex. Nasogastric tube transverses the thorax. IMPRESSION: 1. Mild scattered infiltrate is nonspecific could be related to atypical pulmonary edema or atelectas is. 2. Multiple lines and catheters. 3. Endotracheal tube tip 1.5 cm above the alex.
[2021-01-25 14:07] LABS: Basophils % (A) 0 %; Eosinophils % (A) 0 %; HCT 25.8 % (34.0-46.0); Lymphocytes # (A) 0.4 k/uL (1.0-4.8); Lymphocytes % (A) 8 %; MCH 27.8 pg (25.0-35.0); MCHC 33.4 g/dL (31.0-37.0); MCV 83.2 fL (80.0-100.0); Mean Platelet Volume 8.6; Monocytes # (A) 0.2 k/uL (0-1.0); Monocytes % (A) 5 %; Neutrophils % (A) 86 %; Platelet Count 132 k/uL (150-450); RBC 3.11 m/uL (3.80-5.40); RDW 12.9 % (11.5-15.5); WBC 4.7 k/uL (3.8-10.6)
[2021-01-25 14:07] LABS: Glucose,Whole Blood 163 mg/dL (75-99)
[2021-01-25 14:10] LABS: HGB 8.6 gm/dL (11.4-16.0)
[2021-01-25 14:15] LABS: Albumin 2.6 g/dL (3.5-5.0); Calcium 9.5 mg/dL (8.4-10.2); Magnesium 1.9 mg/dL (1.6-2.3); Total Bilirubin 0.3 mg/dL (0.2-1.3); Total Protein 4.4 g/dL (6.3-8.2)
[2021-01-25 14:22] LABS: Partial Thromboplastin Time 25.6 sec (22.0-30.0); Prothrombin Time 10.7 sec (9.0-12.0)
[2021-01-25 15:01] LABS: Glucose,Whole Blood 176 mg/dL (75-99)
[2021-01-25] MEDS: ALBUMIN HUMAN 5% 250 ML in EMPTY BAG 1 BAG IVPB PRN (15:05)
[2021-01-25] MEDS: IPRATROPIUM-ALBUTEROL 3 ML NEB INHALATION SCH ×3 (15:32→20:09)
[2021-01-25 16:10] LABS: ABG Base Excess -3.5 mmol/L; ABG HCO3 23 mmol/L (21-25); ABG Oxygen Saturation 87.7 % (94-97); ABG PCO2 50 mmHg (35-45); ABG PH 7.28 (7.35-7.45); ABG PO2 61 mmHg (83-108); ABG TCO2 25 mmol/L (19-24); Allen Test Performed? Yes
[2021-01-25 16:16] LABS: Glucose,Whole Blood 173 mg/dL (75-99)
[2021-01-25 16:27] LABS: Basophils % (A) 0 %; Eosinophils % (A) 0 %; HCT 28.9 % (34.0-46.0); HGB 9.7 gm/dL (11.4-16.0); Lymphocytes # (A) 0.5 k/uL (1.0-4.8); Lymphocytes % (A) 5 %; MCH 28.5 pg (25.0-35.0); MCHC 33.7 g/dL (31.0-37.0); MCV 84.5 fL (80.0-100.0); Mean Platelet Volume 9.5; Monocytes # (A) 0.6 k/uL (0-1.0); Monocytes % (A) 6 %; Neutrophils # (A) 8.1 k/uL (1.3-7.7); Neutrophils % (A) 88 %; Platelet Count 189 k/uL (150-450); RBC 3.42 m/uL (3.80-5.40); RDW 12.7 % (11.5-15.5); WBC 9.3 k/uL (3.8-10.6)
--- NOTE | 2021-01-25 16:34 | P.PN ---
Subjective Progress Note Date: 01/25/21 Patient is a pleasant 75-year-old female came in with compensative chest pressure like sensation about a stress 10 in severity on the left side of the chest radiating to the left shoulder along with the diaphoresis or shortness of breath. Patient has a classic chest pain found to have some ST-T wave changes in the leads 1 before to V6. Patient also had mildly elevated troponin because of which patient underwent cardiac catheterization which showed critical left main disease along with the moderate disease in RCA and some disease in the left circumflex as well. Patient had left bundle branch block on the EKG no other EKGs to compare with. Patient is presently on heparin drip and being evaluated for coronary artery bypass grafting at this time. 01/23/2021 Patient is found to be hyperthyroid on this hospitalization patient was a started on methimazole further workup for for hyperthyroidism can be done as an outpatient after coronary artery disease his addressed. Patient is also found to have right lower extremity arterial insufficiency for which vascular surgery is recommending continuation of anticoagulation without any further intervention at this point of time. Patient is scheduled to undergo coronary artery bypass grafting in Thursday serum creatinine appears to have worsened a bit. Patient is also on IV calcium maría for blood pressure control. Patient is also receiving preoperative antibiotics. 01/24/2021 Patient is seen in follow-up continues to be closely monitored in the ICU. Plan is for myocardial revascularization surgery with Dr. Denys Flores tomorrow. Patient per nursing staff had an episode of pulmonary edema and was given Lasix with significant diuresis noted. Patient continues on nitro and heparin drip and multiple medical consultations following including polygraph technician, vascular surgery, pulmonary. Patient continues on methimazole and will need further outpatient follow-up with endocrine once stabilized. Patient will be nothing by mouth at midnight. White blood count is 5.5 with a hemoglobin of 10.7, sodium is 136 with a potassium of 4.0, BUN is 22 and creatinine is 1.28. Magnesium is found to be 2.1 today. Patient will be placed on insulin drip status post surgery per protocol and will continue to monitor. Discussed with vascular arroyo thuan and patient is currently on IV heparin and will likely be started on anticoagulation status post procedure and will follow-up outpatient for the right lower extremity vascularization. 01/25/2021 Patient is seen post surgery for three-vessel coronary artery bypass grafting, with WESLEY to the LAD, and right radial arterial graft to the OM, SVG to the MARJ, left lower extremity endoscopic vein harvesting, and left radial artery endoscopic harvesting and exclusion of the left atrial appendage. Patient continues to be closely monitored in the ICU and continues to be intubated and per nursing staff attempting to wean as tolerated although patient continues to be quite lethargic. Patient was bradycardic on multiple drips. Patient is on insulin drip and will continue per protocol until patient is awake and tolerating diet. Hemoglobin stable at 8.6 this morning, sodium was 137 with a potassium 4.2 and creatinine 1.02. ALT, AST minimally elevated and will monitor. Magnesium was 1.9. Review of systems: Unable to obtain as patient is intubated and sedated All inpatient medications were reviewed and appropriate changes in these medications as dictated in the interval history and assessment and plan. PHYSICAL EXAMINATION: GENERAL: The patient is alert and oriented x3, not in any acute distress. Well developed, well nourished. HEENT: Pupils are round and equally reacting to light. EOMI. No scleral icterus. No conjunctival pallor. Normocephalic, atraumatic. No pharyngeal erythema. No thyromegaly. CARDIOVASCULAR: S1 and S2 present. No murmurs, rubs, or gallops. PULMONARY: Chest is clear to auscultation, no wheezing or crackles. ABDOMEN: Soft, nontender, nondistended, normoactive bowel sounds. No palpable organomegaly. MUSCULOSKELETAL: No joint swelling or deformity. EXTREMITIES: No cyanosis, clubbing, or pedal edema. NEUROLOGICAL: Gross neurological examination did not reveal any focal deficits. SKIN: No rashes. Assessment and plan: -Non-ST segment elevation myocardial infarction, acute: Patient is status post cardiac catheterization, patient underwent coronary artery bypass grafting with Dr. Denys Flores on 01/24/2021. -Hypertension -Hyperlipidemia -Left bundle-branch block unclear if it's a new lead prior left bundle-branch block -Hyperthyroidism: Primary hyperthyroidism continue with methimazole. Patient will need outpatient follow-up with endocrinology -Right lower extremity arterial insufficiency continuing on subcutaneous heparin -Mild acute renal failure probably secondary to contrast, prerenal azotemia -Full code -DVT prophylaxis: Currently on subcut heparin Plan: Patient will continue to be closely monitored in the ICU and underwent CABG with Dr. Denys Flores. Patient is currently intubated and sedated and nursing staff reports to attempting to wean as tolerated and patient continues to be lethargic. Will continue to monitor closely. Objective - Vital Signs Vital signs: Vital Signs Temp 97.2 F L 01/25/21 14:00 Pulse 74 01/25/21 16:22 Resp 17 01/25/21 16:00 BP 103/43 01/25/21 13:45 Pulse Ox 87 L 01/25/21 16:00 Intake & Output 01/24/21 01/25/21 01/25/21 18:59 06:59 18:59 Intake Total 1238.078 368.816 591.498 Output Total 0777 230 9456 Balance 137.078 -331.184 -818.502 Weight 70.4 kg Intake: IV 120 120 320 .9NS Cardiac Output 60 .9NS Pressure Bag 36 Lactated Ringers 1,000 ml 120 @ 50 mls/hr IV .Q20H JAZ Rx#:[id number] Sodium Chloride 0.9% 1, 120 120 000 ml @ 50 mls/hr IV . Q20H JAZ Rx#:[id number] Intake, IV Titration 278.078 248.816 271.498 Amount Albumin Human 5% 250 ml 250 In Empty Bag 1 bag @ 250 mls/hr IVPB Q1HR PRN Rx#: [id number] Heparin Sod,Pork in 0.45% 234.628 248.816 NaCl 25,000 unit In 0.45 % NaCl 1 250ml.bag @ 12 UNITS/KG/HR 8.709 mls/hr IV .Q24H JAZ Rx#: [id number] Insulin Regular 100 unit 2.483 In Sodium Chloride 0.9% 100 ml @ Per Protocol IV .Q0M JAZ Rx#:[id number] Nitroglycerin-D5w Pmx 50 43.45 mg In Dextrose/Water 1 250ml.bag @ 5 MCG/MIN 1.5 mls/hr IV .Q24H JAZ Rx#: [id number] propofoL 1,000 mg In 19.015 Empty Bag 1 bag @ Titrate IV .Q0M JAZ Rx#: [id number] Oral 840 Output: Drainage 155 Left and Right Pleural 115 Chest Tube Mediastinal Chest Tube 40 Urine 1100 700 255 Stool 1 Estimated Blood Loss 1000 Other: Voiding Method Toilet Bedside Commode Bedside Commode # Voids 0 ABP, PAP, CO, CI - Last Documented Arterial Blood Pressure 104/41 Pulmonary Artery Pressure 53/26 Cardiac Output 4.9 Cardiac Index 3.0 - Labs CBC & Chem 7: 01/25/21 16:14 01/25/21 13:11 Labs: Abnormal Lab Results - Last 24 Hours (Table) 01/24/21 01/25/21 01/25/21 Range/Units 03:39 04:22 04:22 RBC 3.67 L (3.80-5.40) m/uL Hgb 10.4 L (11.4-16.0) gm/dL Hct 30.4 L (34.0-46.0) % Plt Count (150-450) k/uL Neutrophils # (1.3-7.7) k/uL Lymphocytes # 0.9 L (1.0-4.8) k/uL ABG pH (7.35-7.45) ABG pCO2 (35-45) mmHg ABG pO2 (83-108) mmHg ABG Total CO2 (19-24) mmol/L ABG O2 Saturation (94-97) % ABG Hematocrit (34.0-46.0) % ABG Ionized Calcium (4.5-5.3) mg/dL ABG Glucose (75-99) mg/dL ABG Lactic Acid (0.5-1.6) mmol/L Hemoglobin (11.4-16.0) gm/dL Chloride (98-107) mmol/L BUN 22 H (7-17) mg/dL Creatinine 1.22 H (0.52-1.04) mg/dL Glucose 115 H (74-99) mg/dL POC Glucose (mg/dL) (75-99) mg/dL Ionized Calcium Luca (4.5-5.3) mg/dL AST (14-36) U/L ALT (4-34) U/L Total Protein 6.2 L (6.3-8.2) g/dL Albumin (3.5-5.0) g/dL Arterial Blood Glucose (75-99) mg/dL Crossmatch See Detail 01/25/21 01/25/21 01/25/21 Range/Units 08:43 10:30 10:59 RBC (3.80-5.40) m/uL Hgb (11.4-16.0) gm/dL Hct (34.0-46.0) % Plt Count (150-450) k/uL Neutrophils # (1.3-7.7) k/uL Lymphocytes # (1.0-4.8) k/uL ABG pH (7.35-7.45) ABG pCO2 (35-45) mmHg ABG pO2 154 H 185 H 144 H (83-108) mmHg ABG Total CO2 25 H 26 H (19-24) mmol/L ABG O2 Saturation 99.4 H 99.8 H 99.3 H (94-97) % ABG Hematocrit 27 L 26 L 27 L (34.0-46.0) % ABG Ionized Calcium (4.5-5.3) mg/dL ABG Glucose 106 H 131 H 209 H (75-99) mg/dL ABG Lactic Acid 2.1 H (0.5-1.6) mmol/L Hemoglobin 8.9 L 8.5 L 8.9 L (11.4-16.0) gm/dL Chloride (98-107) mmol/L BUN (7-17) mg/dL Creatinine (0.52-1.04) mg/dL Glucose (74-99) mg/dL POC Glucose (mg/dL) (75-99) mg/dL Ionized Calcium Luca (4.5-5.3) mg/dL AST (14-36) U/L ALT (4-34) U/L Total Protein (6.3-8.2) g/dL Albumin (3.5-5.0) g/dL Arterial Blood Glucose 106 H 131 H 209 H (75-99) mg/dL Crossmatch 01/25/21 01/25/21 01/25/21 Range/Units 11:38 12:03 13:10 RBC (3.80-5.40) m/uL Hgb (11.4-16.0) gm/dL Hct (34.0-46.0) % Plt Count (150-450) k/uL Neutrophils # (1.3-7.7) k/uL Lymphocytes # (1.0-4.8) k/uL ABG pH 7.34 L 7.32 L (7.35-7.45) ABG pCO2 47 H (35-45) mmHg ABG pO2 146 H 141 H (83-108) mmHg ABG Total CO2 26 H 26 H (19-24) mmol/L ABG O2 Saturation 99.3 H 99.0 H (94-97) % ABG Hematocrit 26 L 26 L (34.0-46.0) % ABG Ionized Calcium 5.5 H (4.5-5.3) mg/dL ABG Glucose 165 H 149 H (75-99) mg/dL ABG Lactic Acid (0.5-1.6) mmol/L Hemoglobin 8.4 L 8.5 L (11.4-16.0) gm/dL Chloride (98-107) mmol/L BUN (7-17) mg/dL Creatinine (0.52-1.04) mg/dL Glucose (74-99) mg/dL POC Glucose (mg/dL) 158 H (75-99) mg/dL Ionized Calcium Luca (4.5-5.3) mg/dL AST (14-36) U/L ALT (4-34) U/L Total Protein (6.3-8.2) g/dL Albumin (3.5-5.0) g/dL Arterial Blood Glucose 165 H 149 H (75-99) mg/dL Crossmatch 01/25/21 01/25/21 01/25/21 Range/Units 13:11 13:11 13:20 RBC 3.11 L (3.80-5.40) m/uL Hgb 8.6 L D (11.4-16.0) gm/dL Hct 25.8 L (34.0-46.0) % Plt Count 132 L (150-450) k/uL Neutrophils # (1.3-7.7) k/uL Lymphocytes # 0.4 L (1.0-4.8) k/uL ABG pH 7.34 L (7.35-7.45) ABG pCO2 (35-45) mmHg ABG pO2 >400 H (83-108) mmHg ABG Total CO2 26 H (19-24) mmol/L ABG O2 Saturation 99.0 H (94-97) % ABG Hematocrit (34.0-46.0) % ABG Ionized Calcium (4.5-5.3) mg/dL ABG Glucose (75-99) mg/dL ABG Lactic Acid (0.5-1.6) mmol/L Hemoglobin (11.4-16.0) gm/dL Chloride 109 H (98-107) mmol/L BUN 19 H (7-17) mg/dL Creatinine (0.52-1.04) mg/dL Glucose 136 H (74-99) mg/dL POC Glucose (mg/dL) (75-99) mg/dL Ionized Calcium Luca 6.0 H* (4.5-5.3) mg/dL AST 87 H (14-36) U/L ALT 44 H (4-34) U/L Total Protein 4.4 L (6.3-8.2) g/dL Albumin 2.6 L (3.5-5.0) g/dL Arterial Blood Glucose (75-99) mg/dL Crossmatch 01/25/21 01/25/21 01/25/21 Range/Units 14:05 14:58 16:02 RBC (3.80-5.40) m/uL Hgb (11.4-16.0) gm/dL Hct (34.0-46.0) % Plt Count (150-450) k/uL Neutrophils # (1.3-7.7) k/uL Lymphocytes # (1.0-4.8) k/uL ABG pH 7.28 L (7.35-7.45) ABG pCO2 50 H (35-45) mmHg ABG pO2 61 L (83-108) mmHg ABG Total CO2 25 H (19-24) mmol/L ABG O2 Saturation 87.7 L (94-97) % ABG Hematocrit (34.0-46.0) % ABG Ionized Calcium (4.5-5.3) mg/dL ABG Glucose (75-99) mg/dL ABG Lactic Acid (0.5-1.6) mmol/L Hemoglobin (11.4-16.0) gm/dL Chloride (98-107) mmol/L BUN (7-17) mg/dL Creatinine (0.52-1.04) mg/dL Glucose (74-99) mg/dL POC Glucose (mg/dL) 163 H 176 H (75-99) mg/dL Ionized Calcium Luca (4.5-5.3) mg/dL AST (14-36) U/L ALT (4-34) U/L Total Protein (6.3-8.2) g/dL Albumin (3.5-5.0) g/dL Arterial Blood Glucose (75-99) mg/dL Crossmatch 01/25/21 01/25/21 Range/Units 16:06 16:14 RBC 3.42 L (3.80-5.40) m/uL Hgb 9.7 L (11.4-16.0) gm/dL Hct 28.9 L (34.0-46.0) % Plt Count (150-450) k/uL Neutrophils # 8.1 H (1.3-7.7) k/uL Lymphocytes # 0.5 L (1.0-4.8) k/uL ABG pH (7.35-7.45) ABG pCO2 (35-45) mmHg ABG pO2 (83-108) mmHg ABG Total CO2 (19-24) mmol/L ABG O2 Saturation (94-97) % ABG Hematocrit (34.0-46.0) % ABG Ionized Calcium (4.5-5.3) mg/dL ABG Glucose (75-99) mg/dL ABG Lactic Acid (0.5-1.6) mmol/L Hemoglobin (11.4-16.0) gm/dL Chloride (98-107) mmol/L BUN (7-17) mg/dL Creatinine (0.52-1.04) mg/dL Glucose (74-99) mg/dL POC Glucose (mg/dL) 173 H (75-99) mg/dL Ionized Calcium Luca (4.5-5.3) mg/dL AST (14-36) U/L ALT (4-34) U/L Total Protein (6.3-8.2) g/dL Albumin (3.5-5.0) g/dL Arterial Blood Glucose (75-99) mg/dL Crossmatch
[2021-01-25] MEDS: HEPARIN SODIUM,PORCINE/PF 5,000 UNIT/0.5 ML SYRINGE SQ SCH ×2 (16:44→23:37)
[2021-01-25 17:04] LABS: Glucose,Whole Blood 162 mg/dL (75-99)
[2021-01-25] MEDS: ACETAMINOPHEN IV (For NPO) 1,000 MG in EMPTY BAG 1 BAG IVPB SCH ×2 (17:08→23:10)
[2021-01-25 18:00] LABS: Allen Test Performed? Yes
[2021-01-25 18:02] LABS: ABG Base Excess -3.4 mmol/L; ABG HCO3 23 mmol/L (21-25); ABG Oxygen Saturation 95.5 % (94-97); ABG PCO2 46 mmHg (35-45); ABG PH 7.31 (7.35-7.45); ABG PO2 82 mmHg (83-108); ABG TCO2 24 mmol/L (19-24)
[2021-01-25 18:07] LABS: Glucose,Whole Blood 133 mg/dL (75-99)
[2021-01-25 19:06] LABS: Glucose,Whole Blood 137 mg/dL (75-99)
[2021-01-25 19:06] LABS: Basophils % (A) 0 %; Eosinophils % (A) 0 %; HCT 29.7 % (34.0-46.0); HGB 9.9 gm/dL (11.4-16.0); Lymphocytes # (A) 0.4 k/uL (1.0-4.8); Lymphocytes % (A) 3 %; MCHC 33.4 g/dL (31.0-37.0); MCV 83.9 fL (80.0-100.0); Mean Platelet Volume 9.2; Monocytes # (A) 0.9 k/uL (0-1.0); Monocytes % (A) 7 %; Neutrophils # (A) 11.4 k/uL (1.3-7.7); Neutrophils % (A) 89 %; Platelet Count 225 k/uL (150-450); RBC 3.54 m/uL (3.80-5.40); RDW 12.8 % (11.5-15.5); WBC 12.8 k/uL (3.8-10.6)
[2021-01-25 19:58] LABS: Glucose,Whole Blood 118 mg/dL (75-99)
[2021-01-25] MEDS: MUPIROCIN 2% OINT 22 GM TUBE NASAL SCH (20:28)
[2021-01-25 20:54] LABS: Glucose,Whole Blood 108 mg/dL (75-99)
[2021-01-25 22:07] LABS: Glucose,Whole Blood 153 mg/dL (75-99)
[2021-01-25 23:08] LABS: Glucose,Whole Blood 141 mg/dL (75-99)
[2021-01-25] MEDS: HYDROcodone/APAP 5-325MG 1 EACH TAB PO PRN (23:44)
[2021-01-25 23:59] LABS: Glucose,Whole Blood 140 mg/dL (75-99)
[2021-01-26 01:00] LABS: Glucose,Whole Blood 145 mg/dL (75-99)
[2021-01-26] MEDS: DILTIAZEM 125 MG in SODIUM CHLORIDE 0.9% 100 ML IV SCH (01:03)
[2021-01-26] MEDS: hydrALAZINE HCL 20 MG/ML 1 ML VIAL IVP PRN ×3 (01:13→14:02)
[2021-01-26 02:09] LABS: Glucose,Whole Blood 136 mg/dL (75-99)
[2021-01-26 02:52] LABS: Glucose,Whole Blood 130 mg/dL (75-99)
[2021-01-26] MEDS: HYDROcodone/APAP 5-325MG 1 EACH TAB PO PRN ×4 (03:12→20:41)
[2021-01-26 03:55] LABS: Glucose,Whole Blood 170 mg/dL (75-99)
[2021-01-26 04:07] LABS: Basophils % (A) 0 %; Eosinophils % (A) 0 %; HCT 29.4 % (34.0-46.0); HGB 9.9 gm/dL (11.4-16.0); Lymphocytes # (A) 0.4 k/uL (1.0-4.8); Lymphocytes % (A) 3 %; MCHC 33.6 g/dL (31.0-37.0); MCV 83.3 fL (80.0-100.0); Mean Platelet Volume 9.4; Monocytes # (A) 0.8 k/uL (0-1.0); Monocytes % (A) 7 %; Neutrophils # (A) 10.6 k/uL (1.3-7.7); Neutrophils % (A) 88 %; Platelet Count 197 k/uL (150-450); RBC 3.53 m/uL (3.80-5.40); RDW 12.8 % (11.5-15.5)
[2021-01-26 04:18] LABS: Ionized Calcium 5.4 mg/dL (4.5-5.3)
[2021-01-26] MEDS ORDERED: KETOROLAC 15 MG/ML 1 ML VIAL IVP STA (04:22)
[2021-01-26 04:36] LABS: Albumin 3.1 g/dL (3.5-5.0); Calcium 9.4 mg/dL (8.4-10.2); Magnesium 1.9 mg/dL (1.6-2.3); Potassium 3.7 mmol/L (3.5-5.1); Total Bilirubin 0.3 mg/dL (0.2-1.3); Total Protein 5.2 g/dL (6.3-8.2)
[2021-01-26] MEDS ORDERED: POTASSIUM CHLORIDE ER 20 MEQ TAB.ER PO SCH (05:00)
[2021-01-26 05:03] LABS: Glucose,Whole Blood 156 mg/dL (75-99)
[2021-01-26] MEDS: MAGNESIUM SULFATE-D5W PMX 1 GM in DEXTROSE/WATER 1 100ML.BAG IVPB SCH ×2 (05:06→06:55)
[2021-01-26] MEDS: ALBUMIN HUMAN 5% 250 ML in EMPTY BAG 1 BAG IVPB PRN ×3 (06:15→08:15)
[2021-01-26 06:54] LABS: Glucose,Whole Blood 137 mg/dL (75-99)
[2021-01-26 07:57] LABS: Glucose,Whole Blood 171 mg/dL (75-99)
[2021-01-26] MEDS: HEPARIN SODIUM,PORCINE/PF 5,000 UNIT/0.5 ML SYRINGE SQ SCH ×2 (08:14→16:23)
[2021-01-26] MEDS: ATORVASTATIN 40 MG TAB PO SCH (08:16)
[2021-01-26] MEDS: ASPIRIN 325 MG TAB PO SCH (08:16)
[2021-01-26] MEDS: CLOPIDOGREL 75 MG TAB PO SCH (08:16)
[2021-01-26] MEDS: IPRATROPIUM-ALBUTEROL 3 ML NEB INHALATION SCH ×4 (08:17→20:13)
[2021-01-26] MEDS: MUPIROCIN 2% OINT 22 GM TUBE NASAL SCH ×2 (08:17→20:42)
[2021-01-26] MEDS: methIMAzole 5 MG TAB PO SCH (08:18)
[2021-01-26] MEDS: SERTRALINE 100 MG TAB PO SCH (08:20)
[2021-01-26] MEDS: ALPRAZolam 0.25 MG TAB PO PRN ×3 (08:20→20:41)
[2021-01-26] MEDS: AMITRIPTYLINE HCL 10 MG TAB PO SCH (08:21)
[2021-01-26] MEDS: buPROPion 75 MG TAB PO SCH (08:21)
[2021-01-26] MEDS ORDERED: PANTOPRAZOLE 40 MG/10 ML VIAL IVP SCH (09:00)
[2021-01-26] MEDS ORDERED: MAGNESIUM HYDROXIDE 2,400 MG/10 ML CUP PO PRN (09:00)
[2021-01-26] MEDS ORDERED: bisacodyL 10 MG SUPP RECTAL PRN (09:00)
[2021-01-26] MEDS ORDERED: METOPROLOL TARTRATE 12.5 MG TAB PO SCH (09:00)
[2021-01-26 09:01] LABS: Glucose,Whole Blood 129 mg/dL (75-99)
--- NOTE | 2021-01-26 09:51 | P.PN ---
Subjective Progress Note Date: 01/26/21 Principal diagnosis: Coronary artery disease with left main disease, NSTEMI this admission hyperthyroid discovered with preoperative labs as well as borderline diabetes with hemoglobin A1c of 6.6. Past medical history significant for hypertension, hyperlipidemia, breast cancer status post right mastectomy with chemotherapy approximately 25 years ago without radiation, colostomy for bowel rest status post reversal, previous tobacco dependence, remote history of pneumonia. POD #1 off-pump CABG 3 with WESLEY to the LAD, left radial artery graft to the obtuse marginal coronary artery, a reverse saphenous vein graft to the posterior lateral branch of the right coronary artery. Endovascular left thigh greater saphenous vein harvest. Endovascular left radial artery harvest Exclusion of the left atrial appendage with a 35 mm Atriclip. Postoperative acute blood loss anemia, expected post cardiac surgery given hemodilution. The patient was seen in follow-up today 01/26/2021 at her bedside in the intensive care unit. Currently she is sitting up to the chair, is awake, alert and oriented 3 and is in no acute distress. She denies any complaints of shortness of breath at this time although is complaining of some surgical type pain to her chest tube insertion sites. She was successfully extubated at 6:19 PM, currently she is on room air with oxygen saturation is 94% and she is achieving 500 mL on her incentive spirometry with much encouragement. Bedside telemetry showing normal sinus rhythm with bundle branch block heart rate 66 BPM. Current hemodynamics are showing a cardiac output 3.5, cardiac index 2.1, PA pressures 39/14 and CVP 10 mmHg. Dopamine drip remains infusing at 2 mcg/kg/m and Cardizem drip is infusing at 5 mg/hr. mediastinal, left and right pleural chest tubes remain in place to low continuous wall suction -20 cm H2O. No air leak is present. Draining thin serosanguineous drainage. Christopher catheter remains in place for accurate I's and O's with 375 mL output in the last 8 hours. Laboratory results this morning show a WBC count 12.0, hemoglobin 9.9, platelets 197, sodium 137, potassium 3.7, BUN 20, creatinine 0.91, AST 324 and ALT 45. Objective - Vital Signs Vital signs: Vital Signs Temp 98.4 F 01/25/21 20:00 Pulse 66 01/26/21 07:00 Resp 18 01/26/21 07:00 BP 115/42 01/26/21 07:00 Pulse Ox 97 01/26/21 07:00 Intake & Output 01/25/21 01/26/21 01/26/21 18:59 06:59 18:59 Intake Total 872.771 735.530 69.9 Output Total 1645 1383 30 Balance -772.229 -647.470 39.9 Weight 74.7 kg Intake: IV 438 642 43 .9NS Cardiac Output 80 120 .9NS Pressure Bag 54 42 3 Lactated Ringers 1,000 ml 200 440 40 @ 50 mls/hr IV .Q20H JAZ Rx#:[id number] Sodium Chloride 0.9% 1, 40 000 ml @ 50 mls/hr IV . Q20H JAZ Rx#:[id number] Intake, IV Titration 434.771 93.530 26.9 Amount ACETAMINOPHEN IV (For NPO 100 ) 1,000 mg In Empty Bag 1 bag @ 400 mls/hr IVPB Q6HR JAZ Rx#:[id number] Albumin Human 5% 250 ml 250 In Empty Bag 1 bag @ 250 mls/hr IVPB Q1HR PRN Rx#: [id number] Diltiazem 125 mg In 56.833 Sodium Chloride 0.9% 100 ml @ 5 MG/HR 5 mls/hr IV .Q24H JAZ Rx#:[id number] Insulin Regular 100 unit 15.756 36.697 In Sodium Chloride 0.9% 100 ml @ Per Protocol IV .Q0M JAZ Rx#:[id number] Nitroglycerin-D5w Pmx 50 26.9 mg In Dextrose/Water 1 250ml.bag @ 5 MCG/MIN 1.5 mls/hr IV .Q24H JAZ Rx#: [id number] ceFAZolin 2 gm In Sodium 50 Chloride 0.9% 50 ml @ 100 mls/hr IVPB Q8HR JAZ Rx# :[id number] propofoL 1,000 mg In 19.015 Empty Bag 1 bag @ Titrate IV .Q0M JAZ Rx#: [id number] Output: Drainage 340 888 Left and Right Pleural 275 720 Chest Tube Mediastinal Chest Tube 65 168 Urine 305 495 30 Estimated Blood Loss 1000 Other: Voiding Method Indwelling Catheter Indwelling Catheter ABP, PAP, CO, CI - Last Documented Arterial Blood Pressure 106/30 Pulmonary Artery Pressure 39/14 Cardiac Output 3.5 Cardiac Index 2.1 - Exam CONSTITUTIONAL: Sitting up to the bedside chair in the intensive care unit, appears comfortable, cooperative, no apparent acute distress. HEENT: Neck is supple, no JVD, no lymphadenopathy. Right IJ Cordis and Egan- Cyndi catheter in place and functioning. RESPIRATORY: Lungs sounds essentially clear throughout, diminished to her bilateral bases. Respirations are symmetrical and nonlabored. Currently on room air with oxygen saturation is 94%. Able to achieve 500 mL on her incentive spirometry. Strong cough. CARDIOVASCULAR: Regular rhythm and rate. S1 and S2 present, negative for S3, gallop or murmur. Sternum is stable. Palpable peripheral pulses bilaterally, no edema present. No calf pain or tenderness noted. Heart hugger in place with patient demonstrating appropriate use. Knee-high JUDE hose and sequential compression devices in place to her bilateral lower extremities. Bedside tel emetry showing normal sinus rhythm with bundle branch block heart rate 66 BPM. GASTROINTESTINAL: Abdomen soft, nontender, nondistended. Hypoactive bowel sounds present 4 quadrants. Tolerating diet. Passing flatus. No guarding or rigidity. GENITOURINARY: Christopher present draining clear, yellow urine. Output 375 mL in the last 8 hours. INTEGUMENTARY: Skin is warm and dry with no evidence of clubbing or cyanosis. Midline sternal incision clean dry and well approximated, covered with dry inta ct dressing. Left lower extremity EVH sites well approximated without redness or drainage. Left arm radial artery harvest sites clean, dry and approximated. No drainage redness is present. NEUROLOGIC: Cranial nerves II through XII intact. No focal deficits. MUSKULOSKELETAL: Able to move all extremities, strength equal bilaterally, generalized weakness. PSYCHIATRIC: Alert and oriented to person place and time, appropriate affect, intact judgment and insight. Episodes of feeling anxious. INVASIVE LINES AND TUBES: Mediastinal/left/right pleural chest tubes present and connected to low continuous wall suction, no air leaks present. Mediastinal Chest tube with 80 mL of thin serosanguineous drainage overnight, 210 mL output since surgery. Left/right pleural chest tubes with 450 mL output in the last 8 hours and 1000 mL output since surgery. Right internal jugular Egan/Cordis, right radial arterial line present. Last CO 3.5, CI 2.1 , PA 39/14 and CVP 10 mmHg. - Allied health notes Allied health notes reviewed: nursing - Labs CBC & Chem 7: 01/26/21 03:55 01/26/21 03:55 Labs: Abnormal Lab Results - Last 24 Hours (Table) 01/24/21 01/25/21 01/25/21 Range/Units 03:39 08:43 10:30 WBC (3.8-10.6) k/uL RBC (3.80-5.40) m/uL Hgb (11.4-16.0) gm/dL Hct (34.0-46.0) % Plt Count (150-450) k/uL Neutrophils # (1.3-7.7) k/uL Lymphocytes # (1.0-4.8) k/uL ABG pH (7.35-7.45) ABG pCO2 (35-45) mmHg ABG pO2 154 H 185 H (83-108) mmHg ABG Total CO2 25 H (19-24) mmol/L ABG O2 Saturation 99.4 H 99.8 H (94-97) % ABG Hematocrit 27 L 26 L (34.0-46.0) % ABG Ionized Calcium (4.5-5.3) mg/dL ABG Glucose 106 H 131 H (75-99) mg/dL ABG Lactic Acid (0.5-1.6) mmol/L Hemoglobin 8.9 L 8.5 L (11.4-16.0) gm/dL Chloride (98-107) mmol/L Carbon Dioxide (22-30) mmol/L BUN (7-17) mg/dL Glucose (74-99) mg/dL POC Glucose (mg/dL) (75-99) mg/dL Ionized Calcium Luca (4.5-5.3) mg/dL AST (14-36) U/L ALT (4-34) U/L Total Protein (6.3-8.2) g/dL Albumin (3.5-5.0) g/dL Arterial Blood Glucose 106 H 131 H (75-99) mg/dL Crossmatch See Detail 01/25/21 01/25/21 01/25/21 Range/Units 10:59 11:38 12:03 WBC (3.8-10.6) k/uL RBC (3.80-5.40) m/uL Hgb (11.4-16.0) gm/dL Hct (34.0-46.0) % Plt Count (150-450) k/uL Neutrophils # (1.3-7.7) k/uL Lymphocytes # (1.0-4.8) k/uL ABG pH 7.34 L 7.32 L (7.35-7.45) ABG pCO2 47 H (35-45) mmHg ABG pO2 144 H 146 H 141 H (83-108) mmHg ABG Total CO2 26 H 26 H 26 H (19-24) mmol/L ABG O2 Saturation 99.3 H 99.3 H 99.0 H (94-97) % ABG Hematocrit 27 L 26 L 26 L (34.0-46.0) % ABG Ionized Calcium 5.5 H (4.5-5.3) mg/dL ABG Glucose 209 H 165 H 149 H (75-99) mg/dL ABG Lactic Acid 2.1 H (0.5-1.6) mmol/L Hemoglobin 8.9 L 8.4 L 8.5 L (11.4-16.0) gm/dL Chloride (98-107) mmol/L Carbon Dioxide (22-30) mmol/L BUN (7-17) mg/dL Glucose (74-99) mg/dL POC Glucose (mg/dL) (75-99) mg/dL Ionized Calcium Luca (4.5-5.3) mg/dL AST (14-36) U/L ALT (4-34) U/L Total Protein (6.3-8.2) g/dL Albumin (3.5-5.0) g/dL Arterial Blood Glucose 209 H 165 H 149 H (75-99) mg/dL Crossmatch 01/25/21 01/25/21 01/25/21 Range/Units 13:10 13:11 13:11 WBC (3.8-10.6) k/uL RBC 3.11 L (3.80-5.40) m/uL Hgb 8.6 L D (11.4-16.0) gm/dL Hct 25.8 L (34.0-46.0) % Plt Count 132 L (150-450) k/uL Neutrophils # (1.3-7.7) k/uL Lymphocytes # 0.4 L (1.0-4.8) k/uL ABG pH (7.35-7.45) ABG pCO2 (35-45) mmHg ABG pO2 (83-108) mmHg ABG Total CO2 (19-24) mmol/L ABG O2 Saturation (94-97) % ABG Hematocrit (34.0-46.0) % ABG Ionized Calcium (4.5-5.3) mg/dL ABG Glucose (75-99) mg/dL ABG Lactic Acid (0.5-1.6) mmol/L Hemoglobin (11.4-16.0) gm/dL Chloride 109 H (98-107) mmol/L Carbon Dioxide (22-30) mmol/L BUN 19 H (7-17) mg/dL Glucose 136 H (74-99) mg/dL POC Glucose (mg/dL) 158 H (75-99) mg/dL Ionized Calcium Luca 6.0 H* (4.5-5.3) mg/dL AST 87 H (14-36) U/L ALT 44 H (4-34) U/L Total Protein 4.4 L (6.3-8.2) g/dL Albumin 2.6 L (3.5-5.0) g/dL Arterial Blood Glucose (75-99) mg/dL Crossmatch 01/25/21 01/25/21 01/25/21 Range/Units 13:20 14:05 14:58 WBC (3.8-10.6) k/uL RBC (3.80-5.40) m/uL Hgb (11.4-16.0) gm/dL Hct (34.0-46.0) % Plt Count (150-450) k/uL Neutrophils # (1.3-7.7) k/uL Lymphocytes # (1.0-4.8) k/uL ABG pH 7.34 L (7.35-7.45) ABG pCO2 (35-45) mmHg ABG pO2 >400 H (83-108) mmHg ABG Total CO2 26 H (19-24) mmol/L ABG O2 Saturation 99.0 H (94-97) % ABG Hematocrit (34.0-46.0) % ABG Ionized Calcium (4.5-5.3) mg/dL ABG Glucose (75-99) mg/dL ABG Lactic Acid (0.5-1.6) mmol/L Hemoglobin (11.4-16.0) gm/dL Chloride (98-107) mmol/L Carbon Dioxide (22-30) mmol/L BUN (7-17) mg/dL Glucose (74-99) mg/dL POC Glucose (mg/dL) 163 H 176 H (75-99) mg/dL Ionized Calcium Luca (4.5-5.3) mg/dL AST (14-36) U/L ALT (4-34) U/L Total Protein (6.3-8.2) g/dL Albumin (3.5-5.0) g/dL Arterial Blood Glucose (75-99) mg/dL Crossmatch 01/25/21 01/25/21 01/25/21 Range/Units 16:02 16:06 16:14 WBC (3.8-10.6) k/uL RBC 3.42 L (3.80-5.40) m/uL Hgb 9.7 L (11.4-16.0) gm/dL Hct 28.9 L (34.0-46.0) % Plt Count (150-450) k/uL Neutrophils # 8.1 H (1.3-7.7) k/uL Lymphocytes # 0.5 L (1.0-4.8) k/uL ABG pH 7.28 L (7.35-7.45) ABG pCO2 50 H (35-45) mmHg ABG pO2 61 L (83-108) mmHg ABG Total CO2 25 H (19-24) mmol/L ABG O2 Saturation 87.7 L (94-97) % ABG Hematocrit (34.0-46.0) % ABG Ionized Calcium (4.5-5.3) mg/dL ABG Glucose (75-99) mg/dL ABG Lactic Acid (0.5-1.6) mmol/L Hemoglobin (11.4-16.0) gm/dL Chloride (98-107) mmol/L Carbon Dioxide (22-30) mmol/L BUN (7-17) mg/dL Glucose (74-99) mg/dL POC Glucose (mg/dL) 173 H (75-99) mg/dL Ionized Calcium Luca (4.5-5.3) mg/dL AST (14-36) U/L ALT (4-34) U/L Total Protein (6.3-8.2) g/dL Albumin (3.5-5.0) g/dL Arterial Blood Glucose (75-99) mg/dL Crossmatch 01/25/21 01/25/21 01/25/21 Range/Units 17:00 17:59 18:05 WBC (3.8-10.6) k/uL RBC (3.80-5.40) m/uL Hgb (11.4-16.0) gm/dL Hct (34.0-46.0) % Plt Count (150-450) k/uL Neutrophils # (1.3-7.7) k/uL Lymphocytes # (1.0-4.8) k/uL ABG pH 7.31 L (7.35-7.45) ABG pCO2 46 H (35-45) mmHg ABG pO2 82 L (83-108) mmHg ABG Total CO2 (19-24) mmol/L ABG O2 Saturation (94-97) % ABG Hematocrit (34.0-46.0) % ABG Ionized Calcium (4.5-5.3) mg/dL ABG Glucose (75-99) mg/dL ABG Lactic Acid (0.5-1.6) mmol/L Hemoglobin (11.4-16.0) gm/dL Chloride (98-107) mmol/L Carbon Dioxide (22-30) mmol/L BUN (7-17) mg/dL Glucose (74-99) mg/dL POC Glucose (mg/dL) 162 H 133 H (75-99) mg/dL Ionized Calcium Luca (4.5-5.3) mg/dL AST (14-36) U/L ALT (4-34) U/L Total Protein (6.3-8.2) g/dL Albumin (3.5-5.0) g/dL Arterial Blood Glucose (75-99) mg/dL Crossmatch 01/25/21 01/25/21 01/25/21 Range/Units 18:55 18:58 19:57 WBC 12.8 H (3.8-10.6) k/uL RBC 3.54 L (3.80-5.40) m/uL Hgb 9.9 L (11.4-16.0) gm/dL Hct 29.7 L (34.0-46.0) % Plt Count (150-450) k/uL Neutrophils # 11.4 H (1.3-7.7) k/uL Lymphocytes # 0.4 L (1.0-4.8) k/uL ABG pH (7.35-7.45) ABG pCO2 (35-45) mmHg ABG pO2 (83-108) mmHg ABG Total CO2 (19-24) mmol/L ABG O2 Saturation (94-97) % ABG Hematocrit (34.0-46.0) % ABG Ionized Calcium (4.5-5.3) mg/dL ABG Glucose (75-99) mg/dL ABG Lactic Acid (0.5-1.6) mmol/L Hemoglobin (11.4-16.0) gm/dL Chloride (98-107) mmol/L Carbon Dioxide (22-30) mmol/L BUN (7-17) mg/dL Glucose (74-99) mg/dL POC Glucose (mg/dL) 137 H 118 H (75-99) mg/dL Ionized Calcium Luca (4.5-5.3) mg/dL AST (14-36) U/L ALT (4-34) U/L Total Protein (6.3-8.2) g/dL Albumin (3.5-5.0) g/dL Arterial Blood Glucose (75-99) mg/dL Crossmatch 01/25/21 01/25/21 01/25/21 Range/Units 20:53 22:05 23:06 WBC (3.8-10.6) k/uL RBC (3.80-5.40) m/uL Hgb (11.4-16.0) gm/dL Hct (34.0-46.0) % Plt Count (150-450) k/uL Neutrophils # (1.3-7.7) k/uL Lymphocytes # (1.0-4.8) k/uL ABG pH (7.35-7.45) ABG pCO2 (35-45) mmHg ABG pO2 (83-108) mmHg ABG Total CO2 (19-24) mmol/L ABG O2 Saturation (94-97) % ABG Hematocrit (34.0-46.0) % ABG Ionized Calcium (4.5-5.3) mg/dL ABG Glucose (75-99) mg/dL ABG Lactic Acid (0.5-1.6) mmol/L Hemoglobin (11.4-16.0) gm/dL Chloride (98-107) mmol/L Carbon Dioxide (22-30) mmol/L BUN (7-17) mg/dL Glucose (74-99) mg/dL POC Glucose (mg/dL) 108 H 153 H 141 H (75-99) mg/dL Ionized Calcium Luca (4.5-5.3) mg/dL AST (14-36) U/L ALT (4-34) U/L Total Protein (6.3-8.2) g/dL Albumin (3.5-5.0) g/dL Arterial Blood Glucose (75-99) mg/dL Crossmatch 01/25/21 01/26/21 01/26/21 Range/Units 23:58 00:58 02:07 WBC (3.8-10.6) k/uL RBC (3.80-5.40) m/uL Hgb (11.4-16.0) gm/dL Hct (34.0-46.0) % Plt Count (150-450) k/uL Neutrophils # (1.3-7.7) k/uL Lymphocytes # (1.0-4.8) k/uL ABG pH (7.35-7.45) ABG pCO2 (35-45) mmHg ABG pO2 (83-108) mmHg ABG Total CO2 (19-24) mmol/L ABG O2 Saturation (94-97) % ABG Hematocrit (34.0-46.0) % ABG Ionized Calcium (4.5-5.3) mg/dL ABG Glucose (75-99) mg/dL ABG Lactic Acid (0.5-1.6) mmol/L Hemoglobin (11.4-16.0) gm/dL Chloride (98-107) mmol/L Carbon Dioxide (22-30) mmol/L BUN (7-17) mg/dL Glucose (74-99) mg/dL POC Glucose (mg/dL) 140 H 145 H 136 H (75-99) mg/dL Ionized Calcium Luca (4.5-5.3) mg/dL AST (14-36) U/L ALT (4-34) U/L Total Protein (6.3-8.2) g/dL Albumin (3.5-5.0) g/dL Arterial Blood Glucose (75-99) mg/dL Crossmatch 01/26/21 01/26/21 01/26/21 Range/Units 02:50 03:54 03:55 WBC 12.0 H (3.8-10.6) k/uL RBC 3.53 L (3.80-5.40) m/uL Hgb 9.9 L (11.4-16.0) gm/dL Hct 29.4 L (34.0-46.0) % Plt Count (150-450) k/uL Neutrophils # 10.6 H (1.3-7.7) k/uL Lymphocytes # 0.4 L (1.0-4.8) k/uL ABG pH (7.35-7.45) ABG pCO2 (35-45) mmHg ABG pO2 (83-108) mmHg ABG Total CO2 (19-24) mmol/L ABG O2 Saturation (94-97) % ABG Hematocrit (34.0-46.0) % ABG Ionized Calcium (4.5-5.3) mg/dL ABG Glucose (75-99) mg/dL ABG Lactic Acid (0.5-1.6) mmol/L Hemoglobin (11.4-16.0) gm/dL Chloride (98-107) mmol/L Carbon Dioxide (22-30) mmol/L BUN (7-17) mg/dL Glucose (74-99) mg/dL POC Glucose (mg/dL) 130 H 170 H (75-99) mg/dL Ionized Calcium Luca (4.5-5.3) mg/dL AST (14-36) U/L ALT (4-34) U/L Total Protein (6.3-8.2) g/dL Albumin (3.5-5.0) g/dL Arterial Blood Glucose (75-99) mg/dL Crossmatch 01/26/21 01/26/21 01/26/21 Range/Units 03:55 05:02 06:51 WBC (3.8-10.6) k/uL RBC (3.80-5.40) m/uL Hgb (11.4-16.0) gm/dL Hct (34.0-46.0) % Plt Count (150-450) k/uL Neutrophils # (1.3-7.7) k/uL Lymphocytes # (1.0-4.8) k/uL ABG pH (7.35-7.45) ABG pCO2 (35-45) mmHg ABG pO2 (83-108) mmHg ABG Total CO2 (19-24) mmol/L ABG O2 Saturation (94-97) % ABG Hematocrit (34.0-46.0) % ABG Ionized Calcium (4.5-5.3) mg/dL ABG Glucose (75-99) mg/dL ABG Lactic Acid (0.5-1.6) mmol/L Hemoglobin (11.4-16.0) gm/dL Chloride (98-107) mmol/L Carbon Dioxide 21 L (22-30) mmol/L BUN 20 H (7-17) mg/dL Glucose 161 H (74-99) mg/dL POC Glucose (mg/dL) 156 H 137 H (75-99) mg/dL Ionized Calcium Luca 5.4 H (4.5-5.3) mg/dL AST 324 H (14-36) U/L ALT 45 H (4-34) U/L Total Protein 5.2 L (6.3-8.2) g/dL Albumin 3.1 L (3.5-5.0) g/dL Arterial Blood Glucose (75-99) mg/dL Crossmatch 01/26/21 Range/Units 07:55 WBC (3.8-10.6) k/uL RBC (3.80-5.40) m/uL Hgb (11.4-16.0) gm/dL Hct (34.0-46.0) % Plt Count (150-450) k/uL Neutrophils # (1.3-7.7) k/uL Lymphocytes # (1.0-4.8) k/uL ABG pH (7.35-7.45) ABG pCO2 (35-45) mmHg ABG pO2 (83-108) mmHg ABG Total CO2 (19-24) mmol/L ABG O2 Saturation (94-97) % ABG Hematocrit (34.0-46.0) % ABG Ionized Calcium (4.5-5.3) mg/dL ABG Glucose (75-99) mg/dL ABG Lactic Acid (0.5-1.6) mmol/L Hemoglobin (11.4-16.0) gm/dL Chloride (98-107) mmol/L Carbon Dioxide (22-30) mmol/L BUN (7-17) mg/dL Glucose (74-99) mg/dL POC Glucose (mg/dL) 171 H (75-99) mg/dL Ionized Calcium Luca (4.5-5.3) mg/dL AST (14-36) U/L ALT (4-34) U/L Total Protein (6.3-8.2) g/dL Albumin (3.5-5.0) g/dL Arterial Blood Glucose (75-99) mg/dL Crossmatch - Imaging and Cardiology Chest x-ray: report reviewed, image reviewed Assessment and Plan Assessment: 1. Coronary artery disease with left main disease, NSTEMI this admission, status post CABG 3 2. History of hypertension 3. Hyperlipidemia, treated, cholesterol 96, LDL 40 4. Remote history of breast cancer status post right mastectomy with chemotherapy approximately 25 years ago 5. Colostomy for bowel rest status post reversal 6. Remote history of tobacco dependence, pre-op FEV1 84% of predicted value 7. Remote history of pneumonia 8. Hyperthyroid (discovered on pre-op labs), TSH <0.015, FT4 5.21 9. Borderline diabetes, pre-op A1c 6.6% 10. Postoperative acute blood loss anemia, expected after cardiac surgery due to hemodilution and document the liver enzymes 11. Transaminitis, AST 324 and ALT 45 Plan: 1. Continue aspirin, statin, Plavix, and low-dose beta maría. Will increase metoprolol tartrate as tolerated. 2. Encourage incentive spirometry use 10 times every hour while awake. Bronchodilators per pulmonology management. 3. Discontinue IV nitroglycerin drip. 4. Increase activity, ambulate as tolerated. PT/OT/cardiac rehab consulted. 5. GI/DVT prophylaxis. 6. Will monitor daily labs and chest x-rays. Electrolyte replacement per protocol. 7. Insulin management per primary care service. The patient is a borderline diabetic, preoperative hemoglobin A1c 6.6%, however she does need tight blood sugar control to promote sternal union and to prevent infection. 8. Pain control with current medication regimen. 9. Continue right IJ cordis/Egan-Cyndi catheter for another 24 hours. Discontinue dopamine drip 10. Continue mediastinal/left/right chest tubes, right radial arterial line for another 24 hours. 11. Continue Christopher catheter for another 24 hours for strict accurate intake and output. Daily weights. 12. More recommendations to follow based on patient's clinical course. Time with Patient: Greater than 30
[2021-01-26 09:58] LABS: Glucose,Whole Blood 126 mg/dL (75-99)
[2021-01-26 10:46] VITALS: BMI 33.3
[2021-01-26] MEDS: LACTATED RINGERS 1,000 ML IV SCH (10:57)
[2021-01-26 11:02] LABS: Glucose,Whole Blood 116 mg/dL (75-99)
--- NOTE | 2021-01-26 11:07 | XR ---
EXAMINATION TYPE: XR chest 1V portable DATE OF EXAM: 01/26/2021 COMPARISON: 01/25/2021 INDICATION: Postop cardiac surgery TECHNIQUE: Single frontal view of the chest is obtained. FINDINGS: The heart size is moderately prominent. The pulmonary vasculature is normal. Bilateral chest tubes are present. Subcutaneous emphysema is present on the left. No pneumothorax is evident. [place]-Cyndi catheter is present with tip in the main pulmonary artery region. Mediastinal tube is in the midline. Suspicious focal consolidations are not identified. Findings are improved from co mparison. Nasogastric tube and endotracheal tube removed. IMPRESSION: 1. Mild cardiomegaly. 2. No acute pulmonary process. 3. Lines and catheters discussed above.
[2021-01-26 12:04] LABS: Glucose,Whole Blood 104 mg/dL (75-99)
[2021-01-26] MEDS: amLODIPine 5 MG TAB PO SCH (12:30)
--- NOTE | 2021-01-26 12:38 | P.PN ---
Subjective Progress Note Date: 01/26/21 Patient is a pleasant 75-year-old female came in with compensative chest pressure like sensation about a stress 10 in severity on the left side of the chest radiating to the left shoulder along with the diaphoresis or shortness of breath. Patient has a classic chest pain found to have some ST-T wave changes in the leads 1 before to V6. Patient also had mildly elevated troponin because of which patient underwent cardiac catheterization which showed critical left main disease along with the moderate disease in RCA and some disease in the left circumflex as well. Patient had left bundle branch block on the EKG no other EKGs to compare with. Patient is presently on heparin drip and being evaluated for coronary artery bypass grafting at this time. 01/23/2021 Patient is found to be hyperthyroid on this hospitalization patient was a started on methimazole further workup for for hyperthyroidism can be done as an outpatient after coronary artery disease his addressed. Patient is also found to have right lower extremity arterial insufficiency for which vascular surgery is recommending continuation of anticoagulation without any further intervention at this point of time. Patient is scheduled to undergo coronary artery bypass grafting in Thursday serum creatinine appears to have worsened a bit. Patient is also on IV calcium maría for blood pressure control. Patient is also receiving preoperative antibiotics. 01/24/2021 Patient is seen in follow-up continues to be closely monitored in the ICU. Plan is for myocardial revascularization surgery with Dr. Denys Flores tomorrow. Patient per nursing staff had an episode of pulmonary edema and was given Lasix with significant diuresis noted. 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 Patient continues on methimazole and will need further outpatient follow-up with endocrine once stabilized. Patient will be nothing by mouth at midnight. White blood count is 5.5 with a hemoglobin of 10.7, sodium is 136 with a potassium of 4.0, BUN is 22 and creatinine is 1.28. Magnesium is found to be 2.1 today. Patient will be placed on insulin drip status post surgery per protocol and will continue to monitor. Discussed with vascular surg amy and patient is currently on IV heparin and will likely be started on anticoagulation status post procedure and will follow-up outpatient for the right lower extremity vascularization. 01/25/2021 Patient is seen post surgery for three-vessel coronary artery bypass grafting, with WESLEY to the LAD, and right radial arterial graft to the OM, SVG to the MARJ, left lower extremity endoscopic vein harvesting, and left radial artery endoscopic harvesting and exclusion of the left atrial appendage. Patient continues to be closely monitored in the ICU and continues to be intubated and per nursing staff attempting to wean as tolerated although patient continues to be quite lethargic. Patient was bradycardic on multiple drips. Patient is on insulin drip and will continue per protocol until patient is awake and tolerating diet. Hemoglobin stable at 8.6 this morning, sodium was 137 with a potassium 4.2 and creatinine 1.02. ALT, AST minimally elevated and will monitor. Magnesium was 1.9. 01/26/2021 Patient is evaluated at the bedside in the intensive care unit post op day #2 three-vessel coronary artery bypass grafting with WESLEY to the LAD and right radial arterial graft to the OM, SVG to the MARJ, left lower extremity endoscopic vein harvesting, and left radial artery endoscopic harvesting and exclusion of the left atrial appendage. Patient is awake alert and oriented 3. Patient was extubated yesterday evening in the ICU, without difficulty. Patient states that she is having some difficulty swallowing, she states that her sore throat is sore and was given medication from the nursing staff. Patient states that cold foods are helping. Patient will continue blood sugar monitoring. Patient's hemoglobin A1c was 6.6, patient is a prediabetic, continue with glycemic control, patient is tolerating a minimal oral diet, prefers cold foods. Patient will be transitioned off of the insulin drip to a sliding scale NovoLog coverage. Patient's blood sugars have been consistently in the 120s. Will continue to monitor for any hyperglycemia. Patient continues to have an indwelling catheter. Patient states that she is belching, denies any flatus. Patient is using her incentive spirometer. Patient continues with right and left pleural chest tubes to wall suction. Patient's mediastinal chest tube was pulled today via cardiothoracic services. Dopamine and Cardizem have been discontinued via cardiothoracic services. Patient is normal sinus rhythm with a heart rate of 70s, bundle branch block. Continue to encourage ambulation, PT OT, continue to encourage incentive spirometer. ROS: Constitutional: Reports Fatigue, denied any fever. Cardio vascular: Reports mild incisional pain, denies palpitations, denies chest pain Gastrointestinal : Denies nauses, denies flatus, reports belching, reports mild nasuea, denies abdominal pain Pulmonary: Reports mild SOB at rest, denies cough Neurologic denied any new focal deficits All inpatient medications were reviewed and appropriate changes in these medications as dictated in the interval history and assessment and plan. PHYSICAL EXAMINATION: GENERAL: The patient is alert and oriented x3, not in any acute distress. Well developed, well nourished. HEENT: Pupils are round and equally reacting to light. EOMI. No scleral icterus. No conjunctival pallor. Normocephalic, atraumatic. No pharyngeal erythema. No thyromegaly. CARDIOVASCULAR: S1 and S2 present. No murmurs, rubs, or gallops. PULMONARY: Anterior chest wall clear to auscultation, unable to auscultate posterior due to patient positioning with multiple lines. ABDOMEN: Soft, nontender, nondistended, normoactive bowel sounds. MUSCULOSKELETAL: No joint swelling or deformity. EXTREMITIES: No cyanosis, clubbing, mild pedal edema NEUROLOGICAL: Gross neurological examination did not reveal any focal deficits. SKIN: Surgical incisions noted. Assessment and plan: -Non-ST segment elevation myocardial infarction, acute: Patient is status post cardiac catheterization, patient underwent three-vessel CABG with Dr. Denys Flores on 01/24/2021. -Hypertension, patient continues on oral mouth metoprolol, Norvasc -Hyperlipidemia, patient continues on Lipitor -Left bundle-branch block unclear if it's a new lead prior left bundle-branch block continue with cardiology consultation -Hyperthyroidism: Primary hyperthyroidism continue with methimazole. Patient will need outpatient follow-up with endocrinology -Right lower extremity arterial insufficiency continuing on subcutaneous heparin -Mild acute renal failure probably secondary to contrast, prerenal azotemia, creatinine within normal today at 0.91 continue to monitor with daily labs. Hyperglycemia, patient is a prediabetic, transition to sliding scale coverage continue to monitor blood sugars Leukocytosis, reactive in nature related to three-vessel CABG performed . -Full code -DVT prophylaxis: Currently on subcut heparin Plan: Patient will continue to be closely monitored in the ICU and underwent CABG with Dr. Denys Flores. Patient is evaluated at the bedside today she is awake alert and oriented 3. Patient is to continue with PT OT, increase ambulation, encourage incentive spirometry. Patient can advance diet as tolerated, continue to monitor blood sugars. Continue with NovoLog sliding scale coverage. Objective - Vital Signs Vital signs: Vital Signs Temp 98.4 F 01/25/21 20:00 Pulse 71 01/26/21 11:53 Resp 24 01/26/21 11:00 BP 134/60 01/26/21 11:00 Pulse Ox 94 L 01/26/21 11:00 Intake & Output 01/25/21 01/26/21 01/26/21 18:59 06:59 18:59 Intake Total 872.771 735.530 719.922 Output Total 1645 1383 385 Balance -772.229 -647.470 334.922 Weight 74.7 kg 74.7 kg Intake: IV 438 642 679 .9NS Cardiac Output 80 120 120 .9NS Pressure Bag 54 42 39 Albumin Human 25% 50 ml 250 In Empty Bag 1 bag @ 100 mls/hr IVPB ONCE ONE Rx#: [id number] Diltiazem 125 mg In 20 Sodium Chloride 0.9% 100 ml @ 5 MG/HR 5 mls/hr IV .Q24H [facility] Rx#:[id number] Lactated Ringers 1,000 ml 200 440 200 @ 20 mls/hr IV .Q24H [facility] Rx#:[id number] Sodium Chloride 0.9% 1, 40 000 ml @ 50 mls/hr IV . Q20H [facility] Rx#:[id number] ceFAZolin 2 gm In Sodium 50 Chloride 0.9% 50 ml @ 100 mls/hr IVPB ONCE ONE Rx# :[id number] Intake, IV Titration 434.771 93.530 40.922 Amount ACETAMINOPHEN IV (For NPO 100 ) 1,000 mg In Empty Bag 1 bag @ 400 mls/hr IVPB Q6HR [facility] Rx#:[id number] Albumin Human 5% 250 ml 250 In Empty Bag 1 bag @ 250 mls/hr IVPB Q1HR [facility] Rx#: [id number] Diltiazem 125 mg In 56.833 Sodium Chloride 0.9% 100 ml @ 5 MG/HR 5 mls/hr IV .Q24H [facility] Rx#:[id number] Insulin Regular 100 unit 15.756 36.697 14.022 In Sodium Chloride 0.9% 100 ml @ Per Protocol IV .Q0M [facility] Rx#:[id number] Nitroglycerin-D5w Pmx 50 26.9 mg In Dextrose/Water 1 250ml.bag @ 5 MCG/MIN 1.5 mls/hr IV .Q24H [facility] Rx#: [id number] ceFAZolin 2 gm In Sodium 50 Chloride 0.9% 50 ml @ 100 mls/hr IVPB Q8HR [facility] Rx# :[id number] propofoL 1,000 mg In 19.015 Empty Bag 1 bag @ Titrate IV .Q0M [facility] Rx#: [id number] Output: Chest Tube Drainage 200 Mediastinal 30 Right/Left Pleural 170 Drainage 340 888 Left and Right Pleural 275 720 Chest Tube Mediastinal Chest Tube 65 168 Urine 305 495 185 Estimated Blood Loss 1000 Other: Voiding Method Indwelling Catheter Indwelling Catheter ABP, PAP, CO, CI - Last Documented Arterial Blood Pressure 132/39 Pulmonary Artery Pressure 47/19 Cardiac Output 3.7 Cardiac Index 2.2 - Labs CBC & Chem 7: 01/26/21 03:55 01/26/21 03:55 Labs: Abnormal Lab Results - Last 24 Hours (Table) 01/24/21 01/25/21 01/25/21 Range/Units 03:39 12:03 13:10 WBC (3.8-10.6) k/uL RBC (3.80-5.40) m/uL Hgb (11.4-16.0) gm/dL Hct (34.0-46.0) % Plt Count (150-450) k/uL Neutrophils # (1.3-7.7) k/uL Lymphocytes # (1.0-4.8) k/uL ABG pH 7.32 L (7.35-7.45) ABG pCO2 47 H (35-45) mmHg ABG pO2 141 H (83-108) mmHg ABG Total CO2 26 H (19-24) mmol/L ABG O2 Saturation 99.0 H (94-97) % ABG Hematocrit 26 L (34.0-46.0) % ABG Ionized Calcium 5.5 H (4.5-5.3) mg/dL ABG Glucose 149 H (75-99) mg/dL Hemoglobin 8.5 L (11.4-16.0) gm/dL Chloride (98-107) mmol/L Carbon Dioxide (22-30) mmol/L BUN (7-17) mg/dL Glucose (74-99) mg/dL POC Glucose (mg/dL) 158 H (75-99) mg/dL Ionized Calcium Luca (4.5-5.3) mg/dL AST (14-36) U/L ALT (4-34) U/L Total Protein (6.3-8.2) g/dL Albumin (3.5-5.0) g/dL Arterial Blood Glucose 149 H (75-99) mg/dL Crossmatch See Detail 01/25/21 01/25/21 01/25/21 Range/Units 13:11 13:11 13:20 WBC (3.8-10.6) k/uL RBC 3.11 L (3.80-5.40) m/uL Hgb 8.6 L D (11.4-16.0) gm/dL Hct 25.8 L (34.0-46.0) % Plt Count 132 L (150-450) k/uL Neutrophils # (1.3-7.7) k/uL Lymphocytes # 0.4 L (1.0-4.8) k/uL ABG pH 7.34 L (7.35-7.45) ABG pCO2 (35-45) mmHg ABG pO2 >400 H (83-108) mmHg ABG Total CO2 26 H (19-24) mmol/L ABG O2 Saturation 99.0 H (94-97) % ABG Hematocrit (34.0-46.0) % ABG Ionized Calcium (4.5-5.3) mg/dL ABG Glucose (75-99) mg/dL Hemoglobin (11.4-16.0) gm/dL Chloride 109 H (98-107) mmol/L Carbon Dioxide (22-30) mmol/L BUN 19 H (7-17) mg/dL Glucose 136 H (74-99) mg/dL POC Glucose (mg/dL) (75-99) mg/dL Ionized Calcium Luca 6.0 H* (4.5-5.3) mg/dL AST 87 H (14-36) U/L ALT 44 H (4-34) U/L Total Protein 4.4 L (6.3-8.2) g/dL Albumin 2.6 L (3.5-5.0) g/dL Arterial Blood Glucose (75-99) mg/dL Crossmatch 01/25/21 01/25/21 01/25/21 Range/Units 14:05 14:58 16:02 WBC (3.8-10.6) k/uL RBC (3.80-5.40) m/uL Hgb (11.4-16.0) gm/dL Hct (34.0-46.0) % Plt Count (150-450) k/uL Neutrophils # (1.3-7.7) k/uL Lymphocytes # (1.0-4.8) k/uL ABG pH 7.28 L (7.35-7.45) ABG pCO2 50 H (35-45) mmHg ABG pO2 61 L (83-108) mmHg ABG Total CO2 25 H (19-24) mmol/L ABG O2 Saturation 87.7 L (94-97) % ABG Hematocrit (34.0-46.0) % ABG Ionized Calcium (4.5-5.3) mg/dL ABG Glucose (75-99) mg/dL Hemoglobin (11.4-16.0) gm/dL Chloride (98-107) mmol/L Carbon Dioxide (22-30) mmol/L BUN (7-17) mg/dL Glucose (74-99) mg/dL POC Glucose (mg/dL) 163 H 176 H (75-99) mg/dL Ionized Calcium Luca (4.5-5.3) mg/dL AST (14-36) U/L ALT (4-34) U/L Total Protein (6.3-8.2) g/dL Albumin (3.5-5.0) g/dL Arterial Blood Glucose (75-99) mg/dL Crossmatch 01/25/21 01/25/21 01/25/21 Range/Units 16:06 16:14 17:00 WBC (3.8-10.6) k/uL RBC 3.42 L (3.80-5.40) m/uL Hgb 9.7 L (11.4-16.0) gm/dL Hct 28.9 L (34.0-46.0) % Plt Count (150-450) k/uL Neutrophils # 8.1 H (1.3-7.7) k/uL Lymphocytes # 0.5 L (1.0-4.8) k/uL ABG pH (7.35-7.45) ABG pCO2 (35-45) mmHg ABG pO2 (83-108) mmHg ABG Total CO2 (19-24) mmol/L ABG O2 Saturation (94-97) % ABG Hematocrit (34.0-46.0) % ABG Ionized Calcium (4.5-5.3) mg/dL ABG Glucose (75-99) mg/dL Hemoglobin (11.4-16.0) gm/dL Chloride (98-107) mmol/L Carbon Dioxide (22-30) mmol/L BUN (7-17) mg/dL Glucose (74-99) mg/dL POC Glucose (mg/dL) 173 H 162 H (75-99) mg/dL Ionized Calcium Luca (4.5-5.3) mg/dL AST (14-36) U/L ALT (4-34) U/L Total Protein (6.3-8.2) g/dL Albumin (3.5-5.0) g/dL Arterial Blood Glucose (75-99) mg/dL Crossmatch 01/25/21 01/25/21 01/25/21 Range/Units 17:59 18:05 18:55 WBC (3.8-10.6) k/uL RBC (3.80-5.40) m/uL Hgb (11.4-16.0) gm/dL Hct (34.0-46.0) % Plt Count (150-450) k/uL Neutrophils # (1.3-7.7) k/uL Lymphocytes # (1.0-4.8) k/uL ABG pH 7.31 L (7.35-7.45) ABG pCO2 46 H (35-45) mmHg ABG pO2 82 L (83-108) mmHg ABG Total CO2 (19-24) mmol/L ABG O2 Saturation (94-97) % ABG Hematocrit (34.0-46.0) % ABG Ionized Calcium (4.5-5.3) mg/dL ABG Glucose (75-99) mg/dL Hemoglobin (11.4-16.0) gm/dL Chloride (98-107) mmol/L Carbon Dioxide (22-30) mmol/L BUN (7-17) mg/dL Glucose (74-99) mg/dL POC Glucose (mg/dL) 133 H 137 H (75-99) mg/dL Ionized Calcium Luca (4.5-5.3) mg/dL AST (14-36) U/L ALT (4-34) U/L Total Protein (6.3-8.2) g/dL Albumin (3.5-5.0) g/dL Arterial Blood Glucose (75-99) mg/dL Crossmatch 01/25/21 01/25/21 01/25/21 Range/Units 18:58 19:57 20:53 WBC 12.8 H (3.8-10.6) k/uL RBC 3.54 L (3.80-5.40) m/uL Hgb 9.9 L (11.4-16.0) gm/dL Hct 29.7 L (34.0-46.0) % Plt Count (150-450) k/uL Neutrophils # 11.4 H (1.3-7.7) k/uL Lymphocytes # 0.4 L (1.0-4.8) k/uL ABG pH (7.35-7.45) ABG pCO2 (35-45) mmHg ABG pO2 (83-108) mmHg ABG Total CO2 (19-24) mmol/L ABG O2 Saturation (94-97) % ABG Hematocrit (34.0-46.0) % ABG Ionized Calcium (4.5-5.3) mg/dL ABG Glucose (75-99) mg/dL Hemoglobin (11.4-16.0) gm/dL Chloride (98-107) mmol/L Carbon Dioxide (22-30) mmol/L BUN (7-17) mg/dL Glucose (74-99) mg/dL POC Glucose (mg/dL) 118 H 108 H (75-99) mg/dL Ionized Calcium Luca (4.5-5.3) mg/dL AST (14-36) U/L ALT (4-34) U/L Total Protein (6.3-8.2) g/dL Albumin (3.5-5.0) g/dL Arterial Blood Glucose (75-99) mg/dL Crossmatch 01/25/21 01/25/21 01/25/21 Range/Units 22:05 23:06 23:58 WBC (3.8-10.6) k/uL RBC (3.80-5.40) m/uL Hgb (11.4-16.0) gm/dL Hct (34.0-46.0) % Plt Count (150-450) k/uL Neutrophils # (1.3-7.7) k/uL Lymphocytes # (1.0-4.8) k/uL ABG pH (7.35-7.45) ABG pCO2 (35-45) mmHg ABG pO2 (83-108) mmHg ABG Total CO2 (19-24) mmol/L ABG O2 Saturation (94-97) % ABG Hematocrit (34.0-46.0) % ABG Ionized Calcium (4.5-5.3) mg/dL ABG Glucose (75-99) mg/dL Hemoglobin (11.4-16.0) gm/dL Chloride (98-107) mmol/L Carbon Dioxide (22-30) mmol/L BUN (7-17) mg/dL Glucose (74-99) mg/dL POC Glucose (mg/dL) 153 H 141 H 140 H (75-99) mg/dL Ionized Calcium Luca (4.5-5.3) mg/dL AST (14-36) U/L ALT (4-34) U/L Total Protein (6.3-8.2) g/dL Albumin (3.5-5.0) g/dL Arterial Blood Glucose (75-99) mg/dL Crossmatch 01/26/21 01/26/21 01/26/21 Range/Units 00:58 02:07 02:50 WBC (3.8-10.6) k/uL RBC (3.80-5.40) m/uL Hgb (11.4-16.0) gm/dL Hct (34.0-46.0) % Plt Count (150-450) k/uL Neutrophils # (1.3-7.7) k/uL Lymphocytes # (1.0-4.8) k/uL ABG pH (7.35-7.45) ABG pCO2 (35-45) mmHg ABG pO2 (83-108) mmHg ABG Total CO2 (19-24) mmol/L ABG O2 Saturation (94-97) % ABG Hematocrit (34.0-46.0) % ABG Ionized Calcium (4.5-5.3) mg/dL ABG Glucose (75-99) mg/dL Hemoglobin (11.4-16.0) gm/dL Chloride (98-107) mmol/L Carbon Dioxide (22-30) mmol/L BUN (7-17) mg/dL Glucose (74-99) mg/dL POC Glucose (mg/dL) 145 H 136 H 130 H (75-99) mg/dL Ionized Calcium Luca (4.5-5.3) mg/dL AST (14-36) U/L ALT (4-34) U/L Total Protein (6.3-8.2) g/dL Albumin (3.5-5.0) g/dL Arterial Blood Glucose (75-99) mg/dL Crossmatch 01/26/21 01/26/21 01/26/21 Range/Units 03:54 03:55 03:55 WBC 12.0 H (3.8-10.6) k/uL RBC 3.53 L (3.80-5.40) m/uL Hgb 9.9 L (11.4-16.0) gm/dL Hct 29.4 L (34.0-46.0) % Plt Count (150-450) k/uL Neutrophils # 10.6 H (1.3-7.7) k/uL Lymphocytes # 0.4 L (1.0-4.8) k/uL ABG pH (7.35-7.45) ABG pCO2 (35-45) mmHg ABG pO2 (83-108) mmHg ABG Total CO2 (19-24) mmol/L ABG O2 Saturation (94-97) % ABG Hematocrit (34.0-46.0) % ABG Ionized Calcium (4.5-5.3) mg/dL ABG Glucose (75-99) mg/dL Hemoglobin (11.4-16.0) gm/dL Chloride (98-107) mmol/L Carbon Dioxide 21 L (22-30) mmol/L BUN 20 H (7-17) mg/dL Glucose 161 H (74-99) mg/dL POC Glucose (mg/dL) 170 H (75-99) mg/dL Ionized Calcium Luca 5.4 H (4.5-5.3) mg/dL AST 324 H (14-36) U/L ALT 45 H (4-34) U/L Total Protein 5.2 L (6.3-8.2) g/dL Albumin 3.1 L (3.5-5.0) g/dL Arterial Blood Glucose (75-99) mg/dL Crossmatch 01/26/21 01/26/21 01/26/21 Range/Units 05:02 06:51 07:55 WBC (3.8-10.6) k/uL RBC (3.80-5.40) m/uL Hgb (11.4-16.0) gm/dL Hct (34.0-46.0) % Plt Count (150-450) k/uL Neutrophils # (1.3-7.7) k/uL Lymphocytes # (1.0-4.8) k/uL ABG pH (7.35-7.45) ABG pCO2 (35-45) mmHg ABG pO2 (83-108) mmHg ABG Total CO2 (19-24) mmol/L ABG O2 Saturation (94-97) % ABG Hematocrit (34.0-46.0) % ABG Ionized Calcium (4.5-5.3) mg/dL ABG Glucose (75-99) mg/dL Hemoglobin (11.4-16.0) gm/dL Chloride (98-107) mmol/L Carbon Dioxide (22-30) mmol/L BUN (7-17) mg/dL Glucose (74-99) mg/dL POC Glucose (mg/dL) 156 H 137 H 171 H (75-99) mg/dL Ionized Calcium Luca (4.5-5.3) mg/dL AST (14-36) U/L ALT (4-34) U/L Total Protein (6.3-8.2) g/dL Albumin (3.5-5.0) g/dL Arterial Blood Glucose (75-99) mg/dL Crossmatch 01/26/21 01/26/21 01/26/21 Range/Units 08:58 09:57 11:01 WBC (3.8-10.6) k/uL RBC (3.80-5.40) m/uL Hgb (11.4-16.0) gm/dL Hct (34.0-46.0) % Plt Count (150-450) k/uL Neutrophils # (1.3-7.7) k/uL Lymphocytes # (1.0-4.8) k/uL ABG pH (7.35-7.45) ABG pCO2 (35-45) mmHg ABG pO2 (83-108) mmHg ABG Total CO2 (19-24) mmol/L ABG O2 Saturation (94-97) % ABG Hematocrit (34.0-46.0) % ABG Ionized Calcium (4.5-5.3) mg/dL ABG Glucose (75-99) mg/dL Hemoglobin (11.4-16.0) gm/dL Chloride (98-107) mmol/L Carbon Dioxide (22-30) mmol/L BUN (7-17) mg/dL Glucose (74-99) mg/dL POC Glucose (mg/dL) 129 H 126 H 116 H (75-99) mg/dL Ionized Calcium Luca (4.5-5.3) mg/dL AST (14-36) U/L ALT (4-34) U/L Total Protein (6.3-8.2) g/dL Albumin (3.5-5.0) g/dL Arterial Blood Glucose (75-99) mg/dL Crossmatch 01/26/21 Range/Units 12:02 WBC (3.8-10.6) k/uL RBC (3.80-5.40) m/uL Hgb (11.4-16.0) gm/dL Hct (34.0-46.0) % Plt Count (150-450) k/uL Neutrophils # (1.3-7.7) k/uL Lymphocytes # (1.0-4.8) k/uL ABG pH (7.35-7.45) ABG pCO2 (35-45) mmHg ABG pO2 (83-108) mmHg ABG Total CO2 (19-24) mmol/L ABG O2 Saturation (94-97) % ABG Hematocrit (34.0-46.0) % ABG Ionized Calcium (4.5-5.3) mg/dL ABG Glucose (75-99) mg/dL Hemoglobin (11.4-16.0) gm/dL Chloride (98-107) mmol/L Carbon Dioxide (22-30) mmol/L BUN (7-17) mg/dL Glucose (74-99) mg/dL POC Glucose (mg/dL) 104 H (75-99) mg/dL Ionized Calcium Luca (4.5-5.3) mg/dL AST (14-36) U/L ALT (4-34) U/L Total Protein (6.3-8.2) g/dL Albumin (3.5-5.0) g/dL Arterial Blood Glucose (75-99) mg/dL Crossmatch Assessment and Plan Time with Patient: Greater than 30
--- NOTE | 2021-01-26 13:54 | P.PN ---
Subjective Progress Note Date: 01/26/21 Principal diagnosis: Status post off-pump CABG 3 postoperative day #1. This is a very pleasant 75-year-old female patient who has a history of previous colectomy with colostomy and subsequent reversal, hyperlipidemia, hypertension, osteoarthritis, right-sided breast cancer status post mastectomy, depression. Remote smoking history. She presented to the emergency room on 01/21/2021 with complaints of left-sided chest discomfort radiating down her left arm and into her back. Echocardiogram revealed a normal left ventricular systolic function with ejection fraction 55-60%. No significant valvular disease. She was taken to the cardiac catheterization lab on 01/22/2021 and found to have eccentric 60- 70% stenosis of the left main, 80-90% eccentric lesion in the proximal portion of the left circumflex. Moderate to severe disease involving the ostium of the right coronary artery and 60% stenosis in the mid RCA. Computed tomography scan of the chest revealed atherosclerotic vascular disease. Extensive coronary artery calcification. Pleural thickening and fluid at the lung bases. Minimal atelectasis left lung base. No significant aortic valve calcification. The plan is for coronary artery bypass surgery on 01/25/2021. She is seen today in consultation in the intensive care unit. She is currently awake and alert in no acute distress. No chest pain currently. No worsening shortness of breath cough or congestion. She is maintaining O2 saturation in the mid 90s on 2 L/m nasal cannula. White count 5.8. Hemoglobin 11.7. Platelets 197. Sodium 137. Potassium 4.1. Bicarb 20. Creatinine 1.26. Urinalysis clear. Coronavirus not detected. She remains on heparin drip, nitroglycerin drip at 10 mcg/m. On 01/24/2021 patient seen in follow-up in the intensive care unit. Last night patient had an episode of acute shortness of breath, and flash pulmonary edema. Chest x-ray was obtained showing increased interstitial density related to acute interstitial edema. She was given diuretics, and she has made 3.5 L of urine output in last 24 hours, and she is in -1.2 L net fluid balance. Currently breathing much easier, she is on 2 L of oxygen pulse ox is 95%, she is in sinus mechanism, denies any chest pain this morning, she remains on heparin infusion per weight-based protocol, and nitroglycerin currently at 10 mics per kilo per minute. No repeat chest x-ray was done today, lungs are clear bilaterally. No altered mentation. Patient has also been complaining of right lower extremity pain, and a vascular surgery is consulted for right lower extremity arterial insufficiency. She is currently on oral aspirin. Today's labs have been reviewed, blood vessel, is normal at 5.5, hemoglobin is 10.7, sodium is 136, there is electrolytes were within normal limits, BUN is 22, and creatinine is 1.28 On 01/25/2021 patient is seen in follow-up in the intensive care unit. She seen in the postoperative period, post off-pump three-vessel coronary artery bypass grafting, with WESLEY to the LAD, and right radial arterial graft to the OM, SVG to the MARJ, left lower extremity endoscopic vein harvesting, and left radial artery endoscopic harvesting and exclusion of the left atrial appendage. Patient is sedated, and intubated on mechanical ventilator, currently on assist- control mode of ventilation with a rate of 14, tidal volume is 400, FiO2 100% and PEEP of 5. Postoperative blood gas and chest x-ray is pending, patient is currently on Cardizem drip at 5 mg per hour, nitroglycerin is at 5 mics per kilo per minute, Diprivan and is at 20 mics per kilo per minute, and 0.9 normal saline to 50 ML per hour. EBL Intra-Op was 1 L, patient received crystalloids and 750 ML of 5% albumin Intra-Op. Patient has right and left and mediastinal chest tubes in place with small amount of sanguinous output in the Pleur-evac's. No air leak noted. Patient is in sinus mechanism. PA pressure 16/9, CVP 24, and CO/CI are 2.7 and 1.6 respectively. Patient is in sinus mechanism, liver she is bradycardic with a rate of 44. Patient was reevaluated today on 01/26/2021, she underwent uneventful CABG yesterday, patient was extubated last night as 6:19 PM, and she is doing great. Patient is sitting at a bedside chair, awake alert oriented 3, on 2 L nasal cannula, not in any distress. She is achieving 500 mL with her incentive spirometer. Her EKG or monitor shows sinus rhythm, rate 66 per minute. Cardiac output this morning was 3.5 with index of 2.1. CVP of 10. She was on dopamine drip earlier and on Cardizem infusing at 5 mg per hour. Chest tubes and mediastinal tubes were noted. Chest x-ray was also reviewed. Relatively unremarkable. Labs including CBC hemoglobin platelets are all normal. Electrolytes are normal. Chest x-ray is relatively unremarkable. Objective - Vital Signs Vital signs: Vital Signs Temp 98.4 F 01/25/21 20:00 Pulse 73 01/26/21 12:00 Resp 28 H 01/26/21 12:00 BP 160/64 01/26/21 12:00 Pulse Ox 93 L 01/26/21 12:00 Intake & Output 01/25/21 01/26/21 01/26/21 18:59 06:59 18:59 Intake Total 872.771 735.530 788.922 Output Total 1645 1383 435 Balance -772.229 -647.470 353.922 Weight 74.7 kg 74.7 kg Intake: IV 438 642 748 .9NS Cardiac Output 80 120 140 .9NS Pressure Bag 54 42 48 Albumin Human 25% 50 ml 250 In Empty Bag 1 bag @ 100 mls/hr IVPB ONCE ONE Rx#: [id number] Diltiazem 125 mg In 20 Sodium Chloride 0.9% 100 ml @ 5 MG/HR 5 mls/hr IV .Q24H [facility] Rx#:[id number] Lactated Ringers 1,000 ml 200 440 240 @ 20 mls/hr IV .Q24H [facility] Rx#:[id number] Sodium Chloride 0.9% 1, 40 000 ml @ 50 mls/hr IV . Q20H [facility] Rx#:[id number] ceFAZolin 2 gm In Sodium 50 Chloride 0.9% 50 ml @ 100 mls/hr IVPB ONCE ONE Rx# :[id number] Intake, IV Titration 434.771 93.530 40.922 Amount ACETAMINOPHEN IV (For NPO 100 ) 1,000 mg In Empty Bag 1 bag @ 400 mls/hr IVPB Q6HR [facility] Rx#:[id number] Albumin Human 5% 250 ml 250 In Empty Bag 1 bag @ 250 mls/hr IVPB Q1HR [facility] Rx#: [id number] Diltiazem 125 mg In 56.833 Sodium Chloride 0.9% 100 ml @ 5 MG/HR 5 mls/hr IV .Q24H [facility] Rx#:[id number] Insulin Regular 100 unit 15.756 36.697 14.022 In Sodium Chloride 0.9% 100 ml @ Per Protocol IV .Q0M [facility] Rx#:[id number] Nitroglycerin-D5w Pmx 50 26.9 mg In Dextrose/Water 1 250ml.bag @ 5 MCG/MIN 1.5 mls/hr IV .Q24H [facility] Rx#: [id number] ceFAZolin 2 gm In Sodium 50 Chloride 0.9% 50 ml @ 100 mls/hr IVPB Q8HR [facility] Rx# :[id number] propofoL 1,000 mg In 19.015 Empty Bag 1 bag @ Titrate IV .Q0M [facility] Rx#: [id number] Output: Chest Tube Drainage 220 Mediastinal 30 Right/Left Pleural 190 Drainage 340 888 Left and Right Pleural 275 720 Chest Tube Mediastinal Chest Tube 65 168 Urine 305 495 215 Estimated Blood Loss 1000 Other: Voiding Method Indwelling Catheter Indwelling Catheter Indwelling Catheter ABP, PAP, CO, CI - Last Documented Arterial Blood Pressure 132/39 Pulmonary Artery Pressure 50/20 Cardiac Output 3.8 Cardiac Index 2.3 - Exam CONSTITUTIONAL: Revealed 75-year-old female at a bedside chair, on 2 L nasal cannula, not in distress. HEENT: Neck is supple, no JVD, no lymphadenopathy. Right IJ Cordis and Clanton- Cyndi catheter in place and functioning. RESPIRATORY: Symmetrical chest expansion, diminished breath sounds at the bases no crackles or rhonchi or wheezes. CARDIOVASCULAR: Normal S1 and S2, no S3 gallop, no murmur, sternum is stable. GASTROINTESTINAL: Soft nontender no megaly no rebound no guarding. Positive bowel sounds. INTEGUMENTARY: Midline sternal incision clean dry and well approximated, covered with dry intact dressing. Left lower extremity EVH sites well approximated without redness or drainage. Left arm radial artery harvest sites clean, dry and approximated. No drainage redness is present. NEUROLOGIC: Alert and oriented 3 no gross focal deficits. MUSKULOSKELETAL: No deformities noted limitation range of motion, patient has right shoulder pain with certain movements of the right shoulder. She has a history of rotator cuff. PSYCHIATRIC: Slightly anxious, appropriate affect, normal mental status examination. - Labs CBC & Chem 7: 01/26/21 03:55 01/26/21 03:55 Labs: Abnormal Lab Results - Last 24 Hours (Table) 01/24/21 01/25/21 01/25/21 Range/Units 03:39 13:11 13:11 WBC (3.8-10.6) k/uL RBC 3.11 L (3.80-5.40) m/uL Hgb 8.6 L D (11.4-16.0) gm/dL Hct 25.8 L (34.0-46.0) % Plt Count 132 L (150-450) k/uL Neutrophils # (1.3-7.7) k/uL Lymphocytes # 0.4 L (1.0-4.8) k/uL ABG pH (7.35-7.45) ABG pCO2 (35-45) mmHg ABG pO2 (83-108) mmHg ABG Total CO2 (19-24) mmol/L ABG O2 Saturation (94-97) % Chloride 109 H (98-107) mmol/L Carbon Dioxide (22-30) mmol/L BUN 19 H (7-17) mg/dL Glucose 136 H (74-99) mg/dL POC Glucose (mg/dL) (75-99) mg/dL Ionized Calcium Luca 6.0 H* (4.5-5.3) mg/dL AST 87 H (14-36) U/L ALT 44 H (4-34) U/L Total Protein 4.4 L (6.3-8.2) g/dL Albumin 2.6 L (3.5-5.0) g/dL Crossmatch See Detail 01/25/21 01/25/21 01/25/21 Range/Units 13:20 14:05 14:58 WBC (3.8-10.6) k/uL RBC (3.80-5.40) m/uL Hgb (11.4-16.0) gm/dL Hct (34.0-46.0) % Plt Count (150-450) k/uL Neutrophils # (1.3-7.7) k/uL Lymphocytes # (1.0-4.8) k/uL ABG pH 7.34 L (7.35-7.45) ABG pCO2 (35-45) mmHg ABG pO2 >400 H (83-108) mmHg ABG Total CO2 26 H (19-24) mmol/L ABG O2 Saturation 99.0 H (94-97) % Chloride (98-107) mmol/L Carbon Dioxide (22-30) mmol/L BUN (7-17) mg/dL Glucose (74-99) mg/dL POC Glucose (mg/dL) 163 H 176 H (75-99) mg/dL Ionized Calcium Luca (4.5-5.3) mg/dL AST (14-36) U/L ALT (4-34) U/L Total Protein (6.3-8.2) g/dL Albumin (3.5-5.0) g/dL Crossmatch 01/25/21 01/25/21 01/25/21 Range/Units 16:02 16:06 16:14 WBC (3.8-10.6) k/uL RBC 3.42 L (3.80-5.40) m/uL Hgb 9.7 L (11.4-16.0) gm/dL Hct 28.9 L (34.0-46.0) % Plt Count (150-450) k/uL Neutrophils # 8.1 H (1.3-7.7) k/uL Lymphocytes # 0.5 L (1.0-4.8) k/uL ABG pH 7.28 L (7.35-7.45) ABG pCO2 50 H (35-45) mmHg ABG pO2 61 L (83-108) mmHg ABG Total CO2 25 H (19-24) mmol/L ABG O2 Saturation 87.7 L (94-97) % Chloride (98-107) mmol/L Carbon Dioxide (22-30) mmol/L BUN (7-17) mg/dL Glucose (74-99) mg/dL POC Glucose (mg/dL) 173 H (75-99) mg/dL Ionized Calcium Luca (4.5-5.3) mg/dL AST (14-36) U/L ALT (4-34) U/L Total Protein (6.3-8.2) g/dL Albumin (3.5-5.0) g/dL Crossmatch 01/25/21 01/25/21 01/25/21 Range/Units 17:00 17:59 18:05 WBC (3.8-10.6) k/uL RBC (3.80-5.40) m/uL Hgb (11.4-16.0) gm/dL Hct (34.0-46.0) % Plt Count (150-450) k/uL Neutrophils # (1.3-7.7) k/uL Lymphocytes # (1.0-4.8) k/uL ABG pH 7.31 L (7.35-7.45) ABG pCO2 46 H (35-45) mmHg ABG pO2 82 L (83-108) mmHg ABG Total CO2 (19-24) mmol/L ABG O2 Saturation (94-97) % Chloride (98-107) mmol/L Carbon Dioxide (22-30) mmol/L BUN (7-17) mg/dL Glucose (74-99) mg/dL POC Glucose (mg/dL) 162 H 133 H (75-99) mg/dL Ionized Calcium Luca (4.5-5.3) mg/dL AST (14-36) U/L ALT (4-34) U/L Total Protein (6.3-8.2) g/dL Albumin (3.5-5.0) g/dL Crossmatch 01/25/21 01/25/21 01/25/21 Range/Units 18:55 18:58 19:57 WBC 12.8 H (3.8-10.6) k/uL RBC 3.54 L (3.80-5.40) m/uL Hgb 9.9 L (11.4-16.0) gm/dL Hct 29.7 L (34.0-46.0) % Plt Count (150-450) k/uL Neutrophils # 11.4 H (1.3-7.7) k/uL Lymphocytes # 0.4 L (1.0-4.8) k/uL ABG pH (7.35-7.45) ABG pCO2 (35-45) mmHg ABG pO2 (83-108) mmHg ABG Total CO2 (19-24) mmol/L ABG O2 Saturation (94-97) % Chloride (98-107) mmol/L Carbon Dioxide (22-30) mmol/L BUN (7-17) mg/dL Glucose (74-99) mg/dL POC Glucose (mg/dL) 137 H 118 H (75-99) mg/dL Ionized Calcium Luca (4.5-5.3) mg/dL AST (14-36) U/L ALT (4-34) U/L Total Protein (6.3-8.2) g/dL Albumin (3.5-5.0) g/dL Crossmatch 01/25/21 01/25/21 01/25/21 Range/Units 20:53 22:05 23:06 WBC (3.8-10.6) k/uL RBC (3.80-5.40) m/uL Hgb (11.4-16.0) gm/dL Hct (34.0-46.0) % Plt Count (150-450) k/uL Neutrophils # (1.3-7.7) k/uL Lymphocytes # (1.0-4.8) k/uL ABG pH (7.35-7.45) ABG pCO2 (35-45) mmHg ABG pO2 (83-108) mmHg ABG Total CO2 (19-24) mmol/L ABG O2 Saturation (94-97) % Chloride (98-107) mmol/L Carbon Dioxide (22-30) mmol/L BUN (7-17) mg/dL Glucose (74-99) mg/dL POC Glucose (mg/dL) 108 H 153 H 141 H (75-99) mg/dL Ionized Calcium Luca (4.5-5.3) mg/dL AST (14-36) U/L ALT (4-34) U/L Total Protein (6.3-8.2) g/dL Albumin (3.5-5.0) g/dL Crossmatch 01/25/21 01/26/21 01/26/21 Range/Units 23:58 00:58 02:07 WBC (3.8-10.6) k/uL RBC (3.80-5.40) m/uL Hgb (11.4-16.0) gm/dL Hct (34.0-46.0) % Plt Count (150-450) k/uL Neutrophils # (1.3-7.7) k/uL Lymphocytes # (1.0-4.8) k/uL ABG pH (7.35-7.45) ABG pCO2 (35-45) mmHg ABG pO2 (83-108) mmHg ABG Total CO2 (19-24) mmol/L ABG O2 Saturation (94-97) % Chloride (98-107) mmol/L Carbon Dioxide (22-30) mmol/L BUN (7-17) mg/dL Glucose (74-99) mg/dL POC Glucose (mg/dL) 140 H 145 H 136 H (75-99) mg/dL Ionized Calcium Luca (4.5-5.3) mg/dL AST (14-36) U/L ALT (4-34) U/L Total Protein (6.3-8.2) g/dL Albumin (3.5-5.0) g/dL Crossmatch 01/26/21 01/26/21 01/26/21 Range/Units 02:50 03:54 03:55 WBC 12.0 H (3.8-10.6) k/uL RBC 3.53 L (3.80-5.40) m/uL Hgb 9.9 L (11.4-16.0) gm/dL Hct 29.4 L (34.0-46.0) % Plt Count (150-450) k/uL Neutrophils # 10.6 H (1.3-7.7) k/uL Lymphocytes # 0.4 L (1.0-4.8) k/uL ABG pH (7.35-7.45) ABG pCO2 (35-45) mmHg ABG pO2 (83-108) mmHg ABG Total CO2 (19-24) mmol/L ABG O2 Saturation (94-97) % Chloride (98-107) mmol/L Carbon Dioxide (22-30) mmol/L BUN (7-17) mg/dL Glucose (74-99) mg/dL POC Glucose (mg/dL) 130 H 170 H (75-99) mg/dL Ionized Calcium Luca (4.5-5.3) mg/dL AST (14-36) U/L ALT (4-34) U/L Total Protein (6.3-8.2) g/dL Albumin (3.5-5.0) g/dL Crossmatch 01/26/21 01/26/21 01/26/21 Range/Units 03:55 05:02 06:51 WBC (3.8-10.6) k/uL RBC (3.80-5.40) m/uL Hgb (11.4-16.0) gm/dL Hct (34.0-46.0) % Plt Count (150-450) k/uL Neutrophils # (1.3-7.7) k/uL Lymphocytes # (1.0-4.8) k/uL ABG pH (7.35-7.45) ABG pCO2 (35-45) mmHg ABG pO2 (83-108) mmHg ABG Total CO2 (19-24) mmol/L ABG O2 Saturation (94-97) % Chloride (98-107) mmol/L Carbon Dioxide 21 L (22-30) mmol/L BUN 20 H (7-17) mg/dL Glucose 161 H (74-99) mg/dL POC Glucose (mg/dL) 156 H 137 H (75-99) mg/dL Ionized Calcium Luca 5.4 H (4.5-5.3) mg/dL AST 324 H (14-36) U/L ALT 45 H (4-34) U/L Total Protein 5.2 L (6.3-8.2) g/dL Albumin 3.1 L (3.5-5.0) g/dL Crossmatch 01/26/21 01/26/21 01/26/21 Range/Units 07:55 08:58 09:57 WBC (3.8-10.6) k/uL RBC (3.80-5.40) m/uL Hgb (11.4-16.0) gm/dL Hct (34.0-46.0) % Plt Count (150-450) k/uL Neutrophils # (1.3-7.7) k/uL Lymphocytes # (1.0-4.8) k/uL ABG pH (7.35-7.45) ABG pCO2 (35-45) mmHg ABG pO2 (83-108) mmHg ABG Total CO2 (19-24) mmol/L ABG O2 Saturation (94-97) % Chloride (98-107) mmol/L Carbon Dioxide (22-30) mmol/L BUN (7-17) mg/dL Glucose (74-99) mg/dL POC Glucose (mg/dL) 171 H 129 H 126 H (75-99) mg/dL Ionized Calcium Luca (4.5-5.3) mg/dL AST (14-36) U/L ALT (4-34) U/L Total Protein (6.3-8.2) g/dL Albumin (3.5-5.0) g/dL Crossmatch 01/26/21 01/26/21 Range/Units 11:01 12:02 WBC (3.8-10.6) k/uL RBC (3.80-5.40) m/uL Hgb (11.4-16.0) gm/dL Hct (34.0-46.0) % Plt Count (150-450) k/uL Neutrophils # (1.3-7.7) k/uL Lymphocytes # (1.0-4.8) k/uL ABG pH (7.35-7.45) ABG pCO2 (35-45) mmHg ABG pO2 (83-108) mmHg ABG Total CO2 (19-24) mmol/L ABG O2 Saturation (94-97) % Chloride (98-107) mmol/L Carbon Dioxide (22-30) mmol/L BUN (7-17) mg/dL Glucose (74-99) mg/dL POC Glucose (mg/dL) 116 H 104 H (75-99) mg/dL Ionized Calcium Luca (4.5-5.3) mg/dL AST (14-36) U/L ALT (4-34) U/L Total Protein (6.3-8.2) g/dL Albumin (3.5-5.0) g/dL Crossmatch Assessment and Plan Assessment: Impression: Acute non-ST elevation myocardial infarction Status post CABG, 3, postoperative day #1. Acute blood loss anemia. Expected. Benign essential hypertension. Dyslipidemia. Former smoker. History of bowel resection with previous colostomy and subsequent reversal. History of depression. History of breast cancer History of hyperthyroidism, on methimazole. Recommendation: Continue aspirin statins and Plavix and beta blockers. Continue incentive spirometry. Continue GI and DVT prophylaxis. Increase activity. Monitor daily x-rays and daily labs. Discontinue unnecessary catheters and lines. Continue Christopher catheter for the next 24 hours. Will continue to follow. Time with Patient: Less than 30
--- NOTE | 2021-01-26 14:04 | P.PN ---
Subjective Progress Note Date: 01/26/21 Patient seen and examined. Underwent surgery 01/25/2021 without issue. Extubated last evening, currently up in the chair Still no complaints of any right lower extremity pains. Has been up at the bedside and a mini few steps without complaints of any increasing pain. No rest pain Objective - Vital Signs Vital signs: Vital Signs Temp 98.4 F 01/25/21 20:00 Pulse 75 01/26/21 13:00 Resp 42 H 01/26/21 13:00 BP 154/27 01/26/21 13:00 Pulse Ox 97 01/26/21 13:00 Intake & Output 01/25/21 01/26/21 01/26/21 18:59 06:59 18:59 Intake Total 872.771 735.530 788.922 Output Total 1645 1383 435 Balance -772.229 -647.470 353.922 Weight 74.7 kg 74.7 kg Intake: IV 438 642 748 .9NS Cardiac Output 80 120 140 .9NS Pressure Bag 54 42 48 Albumin Human 25% 50 ml 250 In Empty Bag 1 bag @ 100 mls/hr IVPB ONCE ONE Rx#: [id number] Diltiazem 125 mg In 20 Sodium Chloride 0.9% 100 ml @ 5 MG/HR 5 mls/hr IV .Q24H [facility] Rx#:[id number] Lactated Ringers 1,000 ml 200 440 240 @ 20 mls/hr IV .Q24H [facility] Rx#:[id number] Sodium Chloride 0.9% 1, 40 000 ml @ 50 mls/hr IV . Q20H [facility] Rx#:[id number] ceFAZolin 2 gm In Sodium 50 Chloride 0.9% 50 ml @ 100 mls/hr IVPB ONCE ONE Rx# :[id number] Intake, IV Titration 434.771 93.530 40.922 Amount ACETAMINOPHEN IV (For NPO 100 ) 1,000 mg In Empty Bag 1 bag @ 400 mls/hr IVPB Q6HR [facility] Rx#:[id number] Albumin Human 5% 250 ml 250 In Empty Bag 1 bag @ 250 mls/hr IVPB Q1HR [facility] Rx#: [id number] Diltiazem 125 mg In 56.833 Sodium Chloride 0.9% 100 ml @ 5 MG/HR 5 mls/hr IV .Q24H [facility] Rx#:[id number] Insulin Regular 100 unit 15.756 36.697 14.022 In Sodium Chloride 0.9% 100 ml @ Per Protocol IV .Q0M [facility] Rx#:[id number] Nitroglycerin-D5w Pmx 50 26.9 mg In Dextrose/Water 1 250ml.bag @ 5 MCG/MIN 1.5 mls/hr IV .Q24H [facility] Rx#: [id number] ceFAZolin 2 gm In Sodium 50 Chloride 0.9% 50 ml @ 100 mls/hr IVPB Q8HR [facility] Rx# :[id number] propofoL 1,000 mg In 19.015 Empty Bag 1 bag @ Titrate IV .Q0M [facility] Rx#: [id number] Output: Chest Tube Drainage 220 Mediastinal 30 Right/Left Pleural 190 Drainage 340 888 Left and Right Pleural 275 720 Chest Tube Mediastinal Chest Tube 65 168 Urine 305 495 215 Estimated Blood Loss 1000 Other: Voiding Method Indwelling Catheter Indwelling Catheter Indwelling Catheter ABP, PAP, CO, CI - Last Documented Arterial Blood Pressure 132/39 Pulmonary Artery Pressure 51/19 Cardiac Output 3.8 Cardiac Index 2.3 - Exam Gen. a pleasant cooperative female in no acute distress. Sitting up in the chair HEENT is normocephalic. Postsurgical tubing in place. Abdomen soft. Extremity show no clubbing, cyanosis or edema. Left lower extremity with maintained palpable femoral, dorsalis pedis and posterior tibial pulses. No pulses palpated in the right lower extremity. Motor sensory intact. Slightly cooler. No rest pain. No pain with palpation. No calf pain - Labs CBC & Chem 7: 01/26/21 03:55 01/26/21 03:55 Labs: Abnormal Lab Results - Last 24 Hours (Table) 01/24/21 01/25/21 01/25/21 Range/Units 03:39 13:11 13:11 WBC (3.8-10.6) k/uL RBC 3.11 L (3.80-5.40) m/uL Hgb 8.6 L D (11.4-16.0) gm/dL Hct 25.8 L (34.0-46.0) % Plt Count 132 L (150-450) k/uL Neutrophils # (1.3-7.7) k/uL Lymphocytes # 0.4 L (1.0-4.8) k/uL ABG pH (7.35-7.45) ABG pCO2 (35-45) mmHg ABG pO2 (83-108) mmHg ABG Total CO2 (19-24) mmol/L ABG O2 Saturation (94-97) % Chloride 109 H (98-107) mmol/L Carbon Dioxide (22-30) mmol/L BUN 19 H (7-17) mg/dL Glucose 136 H (74-99) mg/dL POC Glucose (mg/dL) (75-99) mg/dL Ionized Calcium Luca 6.0 H* (4.5-5.3) mg/dL AST 87 H (14-36) U/L ALT 44 H (4-34) U/L Total Protein 4.4 L (6.3-8.2) g/dL Albumin 2.6 L (3.5-5.0) g/dL Crossmatch See Detail 01/25/21 01/25/21 01/25/21 Range/Units 13:20 14:05 14:58 WBC (3.8-10.6) k/uL RBC (3.80-5.40) m/uL Hgb (11.4-16.0) gm/dL Hct (34.0-46.0) % Plt Count (150-450) k/uL Neutrophils # (1.3-7.7) k/uL Lymphocytes # (1.0-4.8) k/uL ABG pH 7.34 L (7.35-7.45) ABG pCO2 (35-45) mmHg ABG pO2 >400 H (83-108) mmHg ABG Total CO2 26 H (19-24) mmol/L ABG O2 Saturation 99.0 H (94-97) % Chloride (98-107) mmol/L Carbon Dioxide (22-30) mmol/L BUN (7-17) mg/dL Glucose (74-99) mg/dL POC Glucose (mg/dL) 163 H 176 H (75-99) mg/dL Ionized Calcium Luca (4.5-5.3) mg/dL AST (14-36) U/L ALT (4-34) U/L Total Protein (6.3-8.2) g/dL Albumin (3.5-5.0) g/dL Crossmatch 01/25/21 01/25/21 01/25/21 Range/Units 16:02 16:06 16:14 WBC (3.8-10.6) k/uL RBC 3.42 L (3.80-5.40) m/uL Hgb 9.7 L (11.4-16.0) gm/dL Hct 28.9 L (34.0-46.0) % Plt Count (150-450) k/uL Neutrophils # 8.1 H (1.3-7.7) k/uL Lymphocytes # 0.5 L (1.0-4.8) k/uL ABG pH 7.28 L (7.35-7.45) ABG pCO2 50 H (35-45) mmHg ABG pO2 61 L (83-108) mmHg ABG Total CO2 25 H (19-24) mmol/L ABG O2 Saturation 87.7 L (94-97) % Chloride (98-107) mmol/L Carbon Dioxide (22-30) mmol/L BUN (7-17) mg/dL Glucose (74-99) mg/dL POC Glucose (mg/dL) 173 H (75-99) mg/dL Ionized Calcium Luca (4.5-5.3) mg/dL AST (14-36) U/L ALT (4-34) U/L Total Protein (6.3-8.2) g/dL Albumin (3.5-5.0) g/dL Crossmatch 01/25/21 01/25/21 01/25/21 Range/Units 17:00 17:59 18:05 WBC (3.8-10.6) k/uL RBC (3.80-5.40) m/uL Hgb (11.4-16.0) gm/dL Hct (34.0-46.0) % Plt Count (150-450) k/uL Neutrophils # (1.3-7.7) k/uL Lymphocytes # (1.0-4.8) k/uL ABG pH 7.31 L (7.35-7.45) ABG pCO2 46 H (35-45) mmHg ABG pO2 82 L (83-108) mmHg ABG Total CO2 (19-24) mmol/L ABG O2 Saturation (94-97) % Chloride (98-107) mmol/L Carbon Dioxide (22-30) mmol/L BUN (7-17) mg/dL Glucose (74-99) mg/dL POC Glucose (mg/dL) 162 H 133 H (75-99) mg/dL Ionized Calcium Luca (4.5-5.3) mg/dL AST (14-36) U/L ALT (4-34) U/L Total Protein (6.3-8.2) g/dL Albumin (3.5-5.0) g/dL Crossmatch 01/25/21 01/25/21 01/25/21 Range/Units 18:55 18:58 19:57 WBC 12.8 H (3.8-10.6) k/uL RBC 3.54 L (3.80-5.40) m/uL Hgb 9.9 L (11.4-16.0) gm/dL Hct 29.7 L (34.0-46.0) % Plt Count (150-450) k/uL Neutrophils # 11.4 H (1.3-7.7) k/uL Lymphocytes # 0.4 L (1.0-4.8) k/uL ABG pH (7.35-7.45) ABG pCO2 (35-45) mmHg ABG pO2 (83-108) mmHg ABG Total CO2 (19-24) mmol/L ABG O2 Saturation (94-97) % Chloride (98-107) mmol/L Carbon Dioxide (22-30) mmol/L BUN (7-17) mg/dL Glucose (74-99) mg/dL POC Glucose (mg/dL) 137 H 118 H (75-99) mg/dL Ionized Calcium Luca (4.5-5.3) mg/dL AST (14-36) U/L ALT (4-34) U/L Total Protein (6.3-8.2) g/dL Albumin (3.5-5.0) g/dL Crossmatch 01/25/21 01/25/21 01/25/21 Range/Units 20:53 22:05 23:06 WBC (3.8-10.6) k/uL RBC (3.80-5.40) m/uL Hgb (11.4-16.0) gm/dL Hct (34.0-46.0) % Plt Count (150-450) k/uL Neutrophils # (1.3-7.7) k/uL Lymphocytes # (1.0-4.8) k/uL ABG pH (7.35-7.45) ABG pCO2 (35-45) mmHg ABG pO2 (83-108) mmHg ABG Total CO2 (19-24) mmol/L ABG O2 Saturation (94-97) % Chloride (98-107) mmol/L Carbon Dioxide (22-30) mmol/L BUN (7-17) mg/dL Glucose (74-99) mg/dL POC Glucose (mg/dL) 108 H 153 H 141 H (75-99) mg/dL Ionized Calcium Luca (4.5-5.3) mg/dL AST (14-36) U/L ALT (4-34) U/L Total Protein (6.3-8.2) g/dL Albumin (3.5-5.0) g/dL Crossmatch 01/25/21 01/26/21 01/26/21 Range/Units 23:58 00:58 02:07 WBC (3.8-10.6) k/uL RBC (3.80-5.40) m/uL Hgb (11.4-16.0) gm/dL Hct (34.0-46.0) % Plt Count (150-450) k/uL Neutrophils # (1.3-7.7) k/uL Lymphocytes # (1.0-4.8) k/uL ABG pH (7.35-7.45) ABG pCO2 (35-45) mmHg ABG pO2 (83-108) mmHg ABG Total CO2 (19-24) mmol/L ABG O2 Saturation (94-97) % Chloride (98-107) mmol/L Carbon Dioxide (22-30) mmol/L BUN (7-17) mg/dL Glucose (74-99) mg/dL POC Glucose (mg/dL) 140 H 145 H 136 H (75-99) mg/dL Ionized Calcium Luca (4.5-5.3) mg/dL AST (14-36) U/L ALT (4-34) U/L Total Protein (6.3-8.2) g/dL Albumin (3.5-5.0) g/dL Crossmatch 01/26/21 01/26/21 01/26/21 Range/Units 02:50 03:54 03:55 WBC 12.0 H (3.8-10.6) k/uL RBC 3.53 L (3.80-5.40) m/uL Hgb 9.9 L (11.4-16.0) gm/dL Hct 29.4 L (34.0-46.0) % Plt Count (150-450) k/uL Neutrophils # 10.6 H (1.3-7.7) k/uL Lymphocytes # 0.4 L (1.0-4.8) k/uL ABG pH (7.35-7.45) ABG pCO2 (35-45) mmHg ABG pO2 (83-108) mmHg ABG Total CO2 (19-24) mmol/L ABG O2 Saturation (94-97) % Chloride (98-107) mmol/L Carbon Dioxide (22-30) mmol/L BUN (7-17) mg/dL Glucose (74-99) mg/dL POC Glucose (mg/dL) 130 H 170 H (75-99) mg/dL Ionized Calcium Luca (4.5-5.3) mg/dL AST (14-36) U/L ALT (4-34) U/L Total Protein (6.3-8.2) g/dL Albumin (3.5-5.0) g/dL Crossmatch 01/26/21 01/26/21 01/26/21 Range/Units 03:55 05:02 06:51 WBC (3.8-10.6) k/uL RBC (3.80-5.40) m/uL Hgb (11.4-16.0) gm/dL Hct (34.0-46.0) % Plt Count (150-450) k/uL Neutrophils # (1.3-7.7) k/uL Lymphocytes # (1.0-4.8) k/uL ABG pH (7.35-7.45) ABG pCO2 (35-45) mmHg ABG pO2 (83-108) mmHg ABG Total CO2 (19-24) mmol/L ABG O2 Saturation (94-97) % Chloride (98-107) mmol/L Carbon Dioxide 21 L (22-30) mmol/L BUN 20 H (7-17) mg/dL Glucose 161 H (74-99) mg/dL POC Glucose (mg/dL) 156 H 137 H (75-99) mg/dL Ionized Calcium Luca 5.4 H (4.5-5.3) mg/dL AST 324 H (14-36) U/L ALT 45 H (4-34) U/L Total Protein 5.2 L (6.3-8.2) g/dL Albumin 3.1 L (3.5-5.0) g/dL Crossmatch 01/26/21 01/26/21 01/26/21 Range/Units 07:55 08:58 09:57 WBC (3.8-10.6) k/uL RBC (3.80-5.40) m/uL Hgb (11.4-16.0) gm/dL Hct (34.0-46.0) % Plt Count (150-450) k/uL Neutrophils # (1.3-7.7) k/uL Lymphocytes # (1.0-4.8) k/uL ABG pH (7.35-7.45) ABG pCO2 (35-45) mmHg ABG pO2 (83-108) mmHg ABG Total CO2 (19-24) mmol/L ABG O2 Saturation (94-97) % Chloride (98-107) mmol/L Carbon Dioxide (22-30) mmol/L BUN (7-17) mg/dL Glucose (74-99) mg/dL POC Glucose (mg/dL) 171 H 129 H 126 H (75-99) mg/dL Ionized Calcium Luca (4.5-5.3) mg/dL AST (14-36) U/L ALT (4-34) U/L Total Protein (6.3-8.2) g/dL Albumin (3.5-5.0) g/dL Crossmatch 01/26/21 01/26/21 Range/Units 11:01 12:02 WBC (3.8-10.6) k/uL RBC (3.80-5.40) m/uL Hgb (11.4-16.0) gm/dL Hct (34.0-46.0) % Plt Count (150-450) k/uL Neutrophils # (1.3-7.7) k/uL Lymphocytes # (1.0-4.8) k/uL ABG pH (7.35-7.45) ABG pCO2 (35-45) mmHg ABG pO2 (83-108) mmHg ABG Total CO2 (19-24) mmol/L ABG O2 Saturation (94-97) % Chloride (98-107) mmol/L Carbon Dioxide (22-30) mmol/L BUN (7-17) mg/dL Glucose (74-99) mg/dL POC Glucose (mg/dL) 116 H 104 H (75-99) mg/dL Ionized Calcium Luca (4.5-5.3) mg/dL AST (14-36) U/L ALT (4-34) U/L Total Protein (6.3-8.2) g/dL Albumin (3.5-5.0) g/dL Crossmatch Assessment and Plan Assessment: Right lower extremity arterial insufficiency Status post heart catheterization Coronary artery disease, scheduled for bypass Plan: Patient seems to be doing well in the postoperative period. No signs of any issue from her arterial insufficiency. Maintain dual antiplatelet therapy. If the patient begins to have some sinus symptoms, may consider surgical intervention versus increasing to oral anticoagulation. Likely had some degree of chronic disease, will perform further workup as outpatient if she begins developing claudication type symptoms
--- NOTE | 2021-01-26 16:10 | P.PN ---
Subjective Progress Note Date: 01/26/21 This 75-year-old female is admitted to the hospital with non-STEMI. Had a cardiac catheterization and was found to have triple-vessel disease including left main. Patient underwent aortocoronary bypass surgery with WESLEY graft to the LAD and radial graft to the circumflex and vein graft to the distal RCA are PLV branch. Patient seemed to be extubated. Since sitting in the chair complaints of chest pain but no in no acute distress. No acute arrhythmias. Patient had some arterial insufficiency in the right leg but no symptoms being being followed by vascular surgeon. Overall patient seemed to be progressing well. Continue current management Objective - Vital Signs Vital signs: Vital Signs Temp 98.4 F 01/25/21 20:00 Pulse 75 01/26/21 13:00 Resp 42 H 01/26/21 13:00 BP 154/27 01/26/21 13:00 Pulse Ox 97 01/26/21 13:00 Intake & Output 01/25/21 01/26/21 01/26/21 18:59 06:59 18:59 Intake Total 872.771 735.530 788.922 Output Total 1645 1383 435 Balance -772.229 -647.470 353.922 Weight 74.7 kg 74.7 kg Intake: IV 438 642 748 .9NS Cardiac Output 80 120 140 .9NS Pressure Bag 54 42 48 Albumin Human 25% 50 ml 250 In Empty Bag 1 bag @ 100 mls/hr IVPB ONCE ONE Rx#: [id number] Diltiazem 125 mg In 20 Sodium Chloride 0.9% 100 ml @ 5 MG/HR 5 mls/hr IV .Q24H [facility] Rx#:[id number] Lactated Ringers 1,000 ml 200 440 240 @ 20 mls/hr IV .Q24H [facility] Rx#:[id number] Sodium Chloride 0.9% 1, 40 000 ml @ 50 mls/hr IV . Q20H [facility] Rx#:[id number] ceFAZolin 2 gm In Sodium 50 Chloride 0.9% 50 ml @ 100 mls/hr IVPB ONCE ONE Rx# :[id number] Intake, IV Titration 434.771 93.530 40.922 Amount ACETAMINOPHEN IV (For NPO 100 ) 1,000 mg In Empty Bag 1 bag @ 400 mls/hr IVPB Q6HR [facility] Rx#:[id number] Albumin Human 5% 250 ml 250 In Empty Bag 1 bag @ 250 mls/hr IVPB Q1HR [facility] Rx#: [id number] Diltiazem 125 mg In 56.833 Sodium Chloride 0.9% 100 ml @ 5 MG/HR 5 mls/hr IV .Q24H [facility] Rx#:[id number] Insulin Regular 100 unit 15.756 36.697 14.022 In Sodium Chloride 0.9% 100 ml @ Per Protocol IV .Q0M [facility] Rx#:[id number] Nitroglycerin-D5w Pmx 50 26.9 mg In Dextrose/Water 1 250ml.bag @ 5 MCG/MIN 1.5 mls/hr IV .Q24H [facility] Rx#: [id number] ceFAZolin 2 gm In Sodium 50 Chloride 0.9% 50 ml @ 100 mls/hr IVPB Q8HR [facility] Rx# :[id number] propofoL 1,000 mg In 19.015 Empty Bag 1 bag @ Titrate IV .Q0M [facility] Rx#: [id number] Output: Chest Tube Drainage 220 Mediastinal 30 Right/Left Pleural 190 Drainage 340 888 Left and Right Pleural 275 720 Chest Tube Mediastinal Chest Tube 65 168 Urine 305 495 215 Estimated Blood Loss 1000 Other: Voiding Method Indwelling Catheter Indwelling Catheter Indwelling Catheter ABP, PAP, CO, CI - Last Documented Arterial Blood Pressure 132/39 Pulmonary Artery Pressure 51/19 Cardiac Output 3.8 Cardiac Index 2.3 - Exam GENERAL EXAM: Patient is alert and oriented and doesn't appear to be in any acute distress HEENT: Normocephalic. Normal reaction of pupils, equal size, normal range of ex traocular motion. No erythema or exudates in the throat. NECK: No masses, no nuchal rigidity. CHEST: Postsurgical LUNGS: Equal air entry with no crackles or wheeze. HEART: S1 and S2 normal with no audible mumurs or gallops. Regular rhythm, femorals equal on both sides.. ABDOMEN: No hepatosplenomegaly, normal bowel sounds, no guarding or rigidity. SKIN: No rashes CENTRAL NERVOUS SYSTEM: No focal deficits. EXTREMITIES: No cyanosis, clubbing or edema. - Labs CBC & Chem 7: 01/26/21 03:55 01/26/21 03:55 Labs: Abnormal Lab Results - Last 24 Hours (Table) 01/24/21 01/25/21 01/25/21 Range/Units 03:39 16:02 16:06 WBC (3.8-10.6) k/uL RBC (3.80-5.40) m/uL Hgb (11.4-16.0) gm/dL Hct (34.0-46.0) % Neutrophils # (1.3-7.7) k/uL Lymphocytes # (1.0-4.8) k/uL ABG pH 7.28 L (7.35-7.45) ABG pCO2 50 H (35-45) mmHg ABG pO2 61 L (83-108) mmHg ABG Total CO2 25 H (19-24) mmol/L ABG O2 Saturation 87.7 L (94-97) % Carbon Dioxide (22-30) mmol/L BUN (7-17) mg/dL Glucose (74-99) mg/dL POC Glucose (mg/dL) 173 H (75-99) mg/dL Ionized Calcium Luca (4.5-5.3) mg/dL AST (14-36) U/L ALT (4-34) U/L Total Protein (6.3-8.2) g/dL Albumin (3.5-5.0) g/dL Crossmatch See Detail 01/25/21 01/25/21 01/25/21 Range/Units 16:14 17:00 17:59 WBC (3.8-10.6) k/uL RBC 3.42 L (3.80-5.40) m/uL Hgb 9.7 L (11.4-16.0) gm/dL Hct 28.9 L (34.0-46.0) % Neutrophils # 8.1 H (1.3-7.7) k/uL Lymphocytes # 0.5 L (1.0-4.8) k/uL ABG pH 7.31 L (7.35-7.45) ABG pCO2 46 H (35-45) mmHg ABG pO2 82 L (83-108) mmHg ABG Total CO2 (19-24) mmol/L ABG O2 Saturation (94-97) % Carbon Dioxide (22-30) mmol/L BUN (7-17) mg/dL Glucose (74-99) mg/dL POC Glucose (mg/dL) 162 H (75-99) mg/dL Ionized Calcium Luca (4.5-5.3) mg/dL AST (14-36) U/L ALT (4-34) U/L Total Protein (6.3-8.2) g/dL Albumin (3.5-5.0) g/dL Crossmatch 01/25/21 01/25/21 01/25/21 Range/Units 18:05 18:55 18:58 WBC 12.8 H (3.8-10.6) k/uL RBC 3.54 L (3.80-5.40) m/uL Hgb 9.9 L (11.4-16.0) gm/dL Hct 29.7 L (34.0-46.0) % Neutrophils # 11.4 H (1.3-7.7) k/uL Lymphocytes # 0.4 L (1.0-4.8) k/uL ABG pH (7.35-7.45) ABG pCO2 (35-45) mmHg ABG pO2 (83-108) mmHg ABG Total CO2 (19-24) mmol/L ABG O2 Saturation (94-97) % Carbon Dioxide (22-30) mmol/L BUN (7-17) mg/dL Glucose (74-99) mg/dL POC Glucose (mg/dL) 133 H 137 H (75-99) mg/dL Ionized Calcium Luca (4.5-5.3) mg/dL AST (14-36) U/L ALT (4-34) U/L Total Protein (6.3-8.2) g/dL Albumin (3.5-5.0) g/dL Crossmatch 01/25/21 01/25/21 01/25/21 Range/Units 19:57 20:53 22:05 WBC (3.8-10.6) k/uL RBC (3.80-5.40) m/uL Hgb (11.4-16.0) gm/dL Hct (34.0-46.0) % Neutrophils # (1.3-7.7) k/uL Lymphocytes # (1.0-4.8) k/uL ABG pH (7.35-7.45) ABG pCO2 (35-45) mmHg ABG pO2 (83-108) mmHg ABG Total CO2 (19-24) mmol/L ABG O2 Saturation (94-97) % Carbon Dioxide (22-30) mmol/L BUN (7-17) mg/dL Glucose (74-99) mg/dL POC Glucose (mg/dL) 118 H 108 H 153 H (75-99) mg/dL Ionized Calcium Luca (4.5-5.3) mg/dL AST (14-36) U/L ALT (4-34) U/L Total Protein (6.3-8.2) g/dL Albumin (3.5-5.0) g/dL Crossmatch 01/25/21 01/25/21 01/26/21 Range/Units 23:06 23:58 00:58 WBC (3.8-10.6) k/uL RBC (3.80-5.40) m/uL Hgb (11.4-16.0) gm/dL Hct (34.0-46.0) % Neutrophils # (1.3-7.7) k/uL Lymphocytes # (1.0-4.8) k/uL ABG pH (7.35-7.45) ABG pCO2 (35-45) mmHg ABG pO2 (83-108) mmHg ABG Total CO2 (19-24) mmol/L ABG O2 Saturation (94-97) % Carbon Dioxide (22-30) mmol/L BUN (7-17) mg/dL Glucose (74-99) mg/dL POC Glucose (mg/dL) 141 H 140 H 145 H (75-99) mg/dL Ionized Calcium Luca (4.5-5.3) mg/dL AST (14-36) U/L ALT (4-34) U/L Total Protein (6.3-8.2) g/dL Albumin (3.5-5.0) g/dL Crossmatch 01/26/21 01/26/21 01/26/21 Range/Units 02:07 02:50 03:54 WBC (3.8-10.6) k/uL RBC (3.80-5.40) m/uL Hgb (11.4-16.0) gm/dL Hct (34.0-46.0) % Neutrophils # (1.3-7.7) k/uL Lymphocytes # (1.0-4.8) k/uL ABG pH (7.35-7.45) ABG pCO2 (35-45) mmHg ABG pO2 (83-108) mmHg ABG Total CO2 (19-24) mmol/L ABG O2 Saturation (94-97) % Carbon Dioxide (22-30) mmol/L BUN (7-17) mg/dL Glucose (74-99) mg/dL POC Glucose (mg/dL) 136 H 130 H 170 H (75-99) mg/dL Ionized Calcium Luca (4.5-5.3) mg/dL AST (14-36) U/L ALT (4-34) U/L Total Protein (6.3-8.2) g/dL Albumin (3.5-5.0) g/dL Crossmatch 01/26/21 01/26/21 01/26/21 Range/Units 03:55 03:55 05:02 WBC 12.0 H (3.8-10.6) k/uL RBC 3.53 L (3.80-5.40) m/uL Hgb 9.9 L (11.4-16.0) gm/dL Hct 29.4 L (34.0-46.0) % Neutrophils # 10.6 H (1.3-7.7) k/uL Lymphocytes # 0.4 L (1.0-4.8) k/uL ABG pH (7.35-7.45) ABG pCO2 (35-45) mmHg ABG pO2 (83-108) mmHg ABG Total CO2 (19-24) mmol/L ABG O2 Saturation (94-97) % Carbon Dioxide 21 L (22-30) mmol/L BUN 20 H (7-17) mg/dL Glucose 161 H (74-99) mg/dL POC Glucose (mg/dL) 156 H (75-99) mg/dL Ionized Calcium Luca 5.4 H (4.5-5.3) mg/dL AST 324 H (14-36) U/L ALT 45 H (4-34) U/L Total Protein 5.2 L (6.3-8.2) g/dL Albumin 3.1 L (3.5-5.0) g/dL Crossmatch 01/26/21 01/26/21 01/26/21 Range/Units 06:51 07:55 08:58 WBC (3.8-10.6) k/uL RBC (3.80-5.40) m/uL Hgb (11.4-16.0) gm/dL Hct (34.0-46.0) % Neutrophils # (1.3-7.7) k/uL Lymphocytes # (1.0-4.8) k/uL ABG pH (7.35-7.45) ABG pCO2 (35-45) mmHg ABG pO2 (83-108) mmHg ABG Total CO2 (19-24) mmol/L ABG O2 Saturation (94-97) % Carbon Dioxide (22-30) mmol/L BUN (7-17) mg/dL Glucose (74-99) mg/dL POC Glucose (mg/dL) 137 H 171 H 129 H (75-99) mg/dL Ionized Calcium [place] (4.5-5.3) mg/dL AST (14-36) U/L ALT (4-34) U/L Total Protein (6.3-8.2) g/dL Albumin (3.5-5.0) g/dL Crossmatch 01/26/21 01/26/21 01/26/21 Range/Units 09:57 11:01 12:02 WBC (3.8-10.6) k/uL RBC (3.80-5.40) m/uL Hgb (11.4-16.0) gm/dL Hct (34.0-46.0) % Neutrophils # (1.3-7.7) k/uL Lymphocytes # (1.0-4.8) k/uL ABG pH (7.35-7.45) ABG pCO2 (35-45) mmHg ABG pO2 (83-108) mmHg ABG Total CO2 (19-24) mmol/L ABG O2 Saturation (94-97) % Carbon Dioxide (22-30) mmol/L BUN (7-17) mg/dL Glucose (74-99) mg/dL POC Glucose (mg/dL) 126 H 116 H 104 H (75-99) mg/dL Ionized Calcium [place] (4.5-5.3) mg/dL AST (14-36) U/L ALT (4-34) U/L Total Protein (6.3-8.2) g/dL Albumin (3.5-5.0) g/dL Crossmatch Assessment and Plan (1) CAD (coronary artery disease) Current Visit: Yes Status: Acute Code(s): I25.10 - ATHSCL HEART DISEASE OF [place] CORONARY ARTERY W/O ANG PCTRS SNOMED Code(s): 10799552 (2) Acute non-ST elevation myocardial infarction (NSTEMI) Current Visit: Yes Status: Acute Code(s): I21.4 - NON-ST ELEVATION (NSTEMI) MYOCARDIAL INFARCTION SNOMED Code(s): 184025276 (3) History of breast cancer Current Visit: Yes Status: Acute Code(s): Z85.3 - PERSONAL HISTORY OF MALIGNANT NEOPLASM OF BREAST SNOMED Code(s): 263536558 (4) Hyperlipidemia Current Visit: Yes Status: Acute Code(s): E78.5 - HYPERLIPIDEMIA, UNSPECIFIED SNOMED Code(s): 47300474 Plan: Patient is status post bypass surgery, progressing fairly well. No arrhythmias. Surgical chest pain. Continue current management. Incentive spirometry. We'll follow
[2021-01-26 17:02] LABS: Glucose,Whole Blood 201 mg/dL (75-99)
[2021-01-26] MEDS: INSULIN ASPART (NovoLOG) 100 UNIT/ML VIAL SQ SCH ×2 (18:45→20:42)
[2021-01-26 20:29] LABS: Glucose,Whole Blood 174 mg/dL (75-99)
[2021-01-26] MEDS: SENNOSIDES-DOCUSATE SODIUM 1 EACH TAB PO SCH (20:41)
[2021-01-26] MEDS: MELATONIN 5 MG TABLET PO SCH (20:41)
[2021-01-27] MEDS: HEPARIN SODIUM,PORCINE/PF 5,000 UNIT/0.5 ML SYRINGE SQ SCH ×4 (00:16→23:21)
[2021-01-27] MEDS: HYDROcodone/APAP 5-325MG 1 EACH TAB PO PRN ×2 (00:24→04:11)
[2021-01-27 04:28] LABS: Basophils % (A) 0 %; Eosinophils % (A) 0 %; HCT 26.3 % (34.0-46.0); HGB 8.8 gm/dL (11.4-16.0); Lymphocytes # (A) 0.7 k/uL (1.0-4.8); Lymphocytes % (A) 7 %; MCH 28.3 pg (25.0-35.0); MCHC 33.4 g/dL (31.0-37.0); Mean Platelet Volume 10.9; Monocytes # (A) 0.6 k/uL (0-1.0); Monocytes % (A) 6 %; Neutrophils # (A) 8.9 k/uL (1.3-7.7); Neutrophils % (A) 85 %; Platelet Count 160 k/uL (150-450); RDW 13.6 % (11.5-15.5); WBC 10.4 k/uL (3.8-10.6)
[2021-01-27 04:49] LABS: Ionized Calcium 5.2 mg/dL (4.5-5.3)
[2021-01-27 05:15] LABS: Calcium 9.2 mg/dL (8.4-10.2); Potassium 4.2 mmol/L (3.5-5.1); Total Bilirubin 0.5 mg/dL (0.2-1.3); Total Protein 4.9 g/dL (6.3-8.2)
[2021-01-27 07:14] LABS: Glucose,Whole Blood 183 mg/dL (75-99)
[2021-01-27] MEDS: INSULIN ASPART (NovoLOG) 100 UNIT/ML VIAL SQ SCH ×5 (07:23→20:50)
[2021-01-27] MEDS: PANTOPRAZOLE 40 MG TABLET PO SCH (07:23)
[2021-01-27] MEDS: IPRATROPIUM-ALBUTEROL 3 ML NEB INHALATION SCH ×4 (08:02→19:43)
[2021-01-27] MEDS: ATORVASTATIN 40 MG TAB PO SCH (08:11)
[2021-01-27] MEDS: CLOPIDOGREL 75 MG TAB PO SCH (08:11)
[2021-01-27] MEDS: ASPIRIN 325 MG TAB PO SCH (08:11)
[2021-01-27] MEDS: METOPROLOL TARTRATE 12.5 MG TAB PO SCH ×2 (08:11→20:49)
[2021-01-27] MEDS: buPROPion 75 MG TAB PO SCH (08:12)
[2021-01-27] MEDS: methIMAzole 5 MG TAB PO SCH (08:12)
[2021-01-27] MEDS: SERTRALINE 100 MG TAB PO SCH (08:12)
[2021-01-27] MEDS: AMITRIPTYLINE HCL 10 MG TAB PO SCH (08:12)
[2021-01-27] MEDS: MUPIROCIN 2% OINT 22 GM TUBE NASAL SCH ×2 (08:13→20:51)
[2021-01-27] MEDS: MAG HYDROX/AL HYDROX/SIMETH 30 ML, LIDOCAINE VISCOUS 30 ML, NYSTATIN 100,000 UNIT/ML SU... PO SCH ×9 (08:13→23:19)
--- NOTE | 2021-01-27 08:17 | P.PN ---
Subjective Progress Note Date: 01/27/21 Principal diagnosis: Coronary artery disease with left main disease, NSTEMI this admission hyperthyroid discovered with preoperative labs as well as borderline diabetic. Previous medical history of hypertension, hyperlipidemia, breast cancer status post right mastectomy with chemotherapy approximately 25 years ago without radiation, colostomy for bowel rest status post reversal, previous tobacco dependence, remote history of pneumonia. Right lower extremity arterial insuffic iency after heart cathterization POD #1 off-pump CABG 3 with WESLEY to the LAD, left radial artery graft to the obtuse marginal coronary artery, reverse saphenous vein graft to the posterior lateral branch of the right coronary artery. Endovascular left thigh greater saphenous vein harvest. Endovascular left radial artery harvest. Exclusion of the left atrial appendage with a 35 mm Atriclip. Postoperative acute blood loss anemia, expected post cardiac surgery given hemodilution. The patient is currently sitting up in the recliner in the ICU in no acute distress. She does complain of post surgical pain and mild shortness of breath. In addition she complains of mouth pain and "skin shedding" which she says is preventing her from eating. Remains in sinus rhythm and hemodynamically stable, off dopamine since yesterday. Did ambulate to the [facility] yesterday with physical therapy. Right internal juggler swan/cordis, right radial arterial line, right/left pleural chest tubes remain. No other new concerns. Objective - Vital Signs Vital signs: Vital Signs Temp 100.4 F H 01/26/21 20:00 Pulse 86 01/27/21 07:00 Resp 15 01/27/21 07:00 BP 121/49 01/27/21 07:00 Pulse Ox 94 L 01/27/21 07:00 Intake & Output 01/26/21 01/27/21 01/27/21 18:59 06:59 18:59 Intake Total 1062.922 349 23 Output Total 1075 735 30 Balance -12.078 -386 -7 Weight 74.7 kg 75 kg Intake: IV 1022 349 23 .9NS Cardiac Output 180 80 .9NS Pressure Bag 102 39 3 Albumin Human 25% 50 ml 250 In Empty Bag 1 bag @ 100 mls/hr IVPB ONCE ONE Rx#: [id number] Diltiazem 125 mg In 20 Sodium Chloride 0.9% 100 ml @ 5 MG/HR 5 mls/hr IV .Q24H [facility] Rx#:[id number] Lactated Ringers 1,000 ml 420 230 20 @ 20 mls/hr IV .Q24H [facility] Rx#:[id number] ceFAZolin 2 gm In Sodium 50 Chloride 0.9% 50 ml @ 100 mls/hr IVPB ONCE ONE Rx# :[id number] Intake, IV Titration 40.922 Amount Insulin Regular 100 unit 14.022 In Sodium Chloride 0.9% 100 ml @ Per Protocol IV .Q0M [facility] Rx#:[id number] Nitroglycerin-D5w Pmx 50 26.9 mg In Dextrose/Water 1 250ml.bag @ 5 MCG/MIN 1.5 mls/hr IV .Q24H [facility] Rx#: [id number] Output: Chest Tube Drainage 580 410 Mediastinal 30 Right/Left Pleural 550 410 Urine 495 325 30 Other: Voiding Method Indwelling Catheter Indwelling Catheter ABP, PAP, CO, CI - Last Documented Arterial Blood Pressure 140/140 Pulmonary Artery Pressure 30/24 Cardiac Output 4.5 Cardiac Index 2.7 - Exam CONSTITUTIONAL: Appears somewhat comfortable, cooperative, no acute distress RESPIRATORY: Lungs sounds diminished bilaterally. Respirations even, nonlabored. Currently on 2 LPM NC with oxygen saturation 95%. Only able to achieve 500 mL on incentive spirometry. Weak non-productive cough. CARDIOVASCULAR: S1, S2 present. Regular rate and rhythm, sinus rhythm on telemetry. Sternum stable. Palpable peripheral pulses bilaterally except right lower extremity, faint doppler PT pulse. No edema present. No calf pain or tenderness noted. Heart hugger in place with patient demonstrating appropriate use. Antiembolism stockings, SCDs present. GASTROINTESTINAL: Abdomen soft, nontender, nondistended. Active bowel sounds present 4 quadrants. Tolerating liquids. Positive belching, negative flatus GENITOURINARY: Christopher present draining clear, yellow urine. Output overnight 25-35 mL per hour, 820 mL in the last 24 hours INTEGUMENTARY: Skin is warm and dry with evidence of good perfusion. Anterior chest incision well approximated and covered with dry intact dressing. Left lower extremity EVH site well approximated without redness or drainage. 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 Right lower extremity cool to touch NEUROLOGIC: Cranial nerves II through XII intact MUSKULOSKELETAL: Able to move all extremities, strength equal bilaterally, gait normal PSYCHIATRIC: Alert and oriented to person place and time, appropriate affect, intact judgment and insight INVASIVE LINES AND TUBES: Left/right pleural chest tubes present and connected to wall suction, no air leaks present, 250 mL serous drainage overnight, 1000 mL in the last 24 hours. Right internal jugular [place]/Cordis, right radial arterial line present. Last CO/CI 4.2/2.5, PA , CVP 10. - Allied health notes Allied health notes reviewed: nursing - Labs CBC & Chem 7: 01/27/21 04:15 01/27/21 04:15 Labs: Abnormal Lab Results - Last 24 Hours (Table) 01/26/21 01/26/21 01/26/21 Range/Units 07:55 08:58 09:57 RBC (3.80-5.40) m/uL Hgb (11.4-16.0) gm/dL Hct (34.0-46.0) % Neutrophils # (1.3-7.7) k/uL Lymphocytes # (1.0-4.8) k/uL Sodium (137-145) mmol/L Carbon Dioxide (22-30) mmol/L BUN (7-17) mg/dL Glucose (74-99) mg/dL POC Glucose (mg/dL) 171 H 129 H 126 H (75-99) mg/dL AST (14-36) U/L ALT (4-34) U/L Total Protein (6.3-8.2) g/dL Albumin (3.5-5.0) g/dL 01/26/21 01/26/21 01/26/21 Range/Units 11:01 12:02 17:01 RBC (3.80-5.40) m/uL Hgb (11.4-16.0) gm/dL Hct (34.0-46.0) % Neutrophils # (1.3-7.7) k/uL Lymphocytes # (1.0-4.8) k/uL Sodium (137-145) mmol/L Carbon Dioxide (22-30) mmol/L BUN (7-17) mg/dL Glucose (74-99) mg/dL POC Glucose (mg/dL) 116 H 104 H 201 H (75-99) mg/dL AST (14-36) U/L ALT (4-34) U/L Total Protein (6.3-8.2) g/dL Albumin (3.5-5.0) g/dL 01/26/21 01/27/21 01/27/21 Range/Units 20:28 04:15 04:15 RBC 3.10 L (3.80-5.40) m/uL Hgb 8.8 L (11.4-16.0) gm/dL Hct 26.3 L (34.0-46.0) % Neutrophils # 8.9 H (1.3-7.7) k/uL Lymphocytes # 0.7 L (1.0-4.8) k/uL Sodium 136 L (137-145) mmol/L Carbon Dioxide 21 L (22-30) mmol/L BUN 25 H (7-17) mg/dL Glucose 160 H (74-99) mg/dL POC Glucose (mg/dL) 174 H (75-99) mg/dL AST 340 H (14-36) U/L ALT 88 H (4-34) U/L Total Protein 4.9 L (6.3-8.2) g/dL Albumin 3.0 L (3.5-5.0) g/dL 01/27/21 Range/Units 07:12 RBC (3.80-5.40) m/uL Hgb (11.4-16.0) gm/dL Hct (34.0-46.0) % Neutrophils # (1.3-7.7) k/uL Lymphocytes # (1.0-4.8) k/uL Sodium (137-145) mmol/L Carbon Dioxide (22-30) mmol/L BUN (7-17) mg/dL Glucose (74-99) mg/dL POC Glucose (mg/dL) 183 H (75-99) mg/dL AST (14-36) U/L ALT (4-34) U/L Total Protein (6.3-8.2) g/dL Albumin (3.5-5.0) g/dL - Imaging and Cardiology Chest x-ray: image reviewed Assessment and Plan Assessment: 1. Coronary artery disease with left main disease, NSTEMI this admission, S/P 3V off pump cabg 2. History of hypertension 3. Hyperlipidemia, treated, cholesterol 96, LDL 40 4. Breast cancer status post right mastectomy with chemotherapy approximately 25 years ago 5. Colostomy for bowel rest status post reversal 6. Previous tobacco dependence, pre-op FEV1 84% of predicted 7. Remote history of pneumonia 8. Hyperthyroid (discovered on pre-op labs), TSH <0.015, FT4 5.21 9. Borderline diabetes, pre-op A1c 6.6% 10. Right lower extremity arterial insufficiency after heart cathterization 11. Postoperative acute blood loss anemia, expected 12. Transaminitis Plan: 1. Continue aspirin, statin, plavix, beta maría. Will increase beta maría as tolerated 2. Continue norvasc for radial artery spasm prophylaxis, do not DC CCB without discussing with cardiac surgery 3. Wean oxygen as tolerated. Encourage incentive spirometry 10 times every hour while awake. Bronchodilators per pulmonology 4. Increase activity, ambulate as tolerated. PT/OT/cardiac rehab following. 5. Will monitor daily labs, CXR. Electrolyte replacement per protocol. Will start IV lasix 20 mg BID x 48 hours 6. GI/DVT prophylaxis 7. Pain control with current medication regimen 8. Insulin management per primary care service. A1c suggests pre-diabetes, patient need tight blood sugar control to promote sternal union and prevent infection 9. DC swan. Connect cordis to continuous CVP monitoring. DC arterial line 10. Will split R/L chest tubes, leave for another 24 hours 11. Will add magic mouthwash for oral pain. Encourage oral intake, Ensure added 12. Family is requesting rehab placement at discharge as patient lives alone a nd there is no one available to assist her upon discharge. Will consult Sandra tomorrow for possible IPR at DC 13. Right lower extremity arterial insufficiency management per Dr. Christopher 14. More recommendations to follow Time with Patient: Greater than 30
[2021-01-27] MEDS: ALPRAZolam 0.25 MG TAB PO PRN ×2 (08:30→20:49)
--- NOTE | 2021-01-27 09:43 | XR ---
EXAMINATION TYPE: XR chest 1V portable DATE OF EXAM: 01/27/2021 COMPARISON: 01/26/2021 INDICATION: Postop cardiac surgery TECHNIQUE: Single frontal view of the chest is obtained. FINDINGS: The heart size is prominent. The pulmonary vasculature is normal. The lungs are clear. Bilateral chest tubes are present. There is a right apical pneumothorax present. IMPRESSION: 1. Small right apical pneumothorax. 2. Multiple lines and catheters discussed above. 3. Cardiomegaly
--- NOTE | 2021-01-27 11:36 | P.PN ---
Subjective Progress Note Date: 01/27/21 Principal diagnosis: Coronary artery disease, left main stenosis, non-ST elevated DC This is a very pleasant 75-year-old female patient who has a history of previous colectomy with colostomy and subsequent reversal, hyperlipidemia, hypertension, osteoarthritis, right-sided breast cancer status post mastectomy, depression. Remote smoking history. She presented to the emergency room on 01/21/2021 with complaints of left-sided chest discomfort radiating down her left arm and into her back. Echocardiogram revealed a normal left ventricular systolic function with ejection fraction 55-60%. No significant valvular disease. She was taken to the cardiac catheterization lab on 01/22/2021 and found to have eccentric 60- 70% stenosis of the left main, 80-90% eccentric lesion in the proximal portion of the left circumflex. Moderate to severe disease involving the ostium of the right coronary artery and 60% stenosis in the mid RCA. Computed tomography scan of the chest revealed atherosclerotic vascular disease. Extensive coronary artery calcification. Pleural thickening and fluid at the lung bases. Minimal atelectasis left lung base. No significant aortic valve calcification. The plan is for coronary artery bypass surgery on 01/25/2021. She is seen today in consultation in the intensive care unit. She is currently awake and alert in no acute distress. No chest pain currently. No worsening shortness of breath cough or congestion. She is maintaining O2 saturation in the mid 90s on 2 L/m nasal cannula. White count 5.8. Hemoglobin 11.7. Platelets 197. Sodium 137. Potassium 4.1. Bicarb 20. Creatinine 1.26. Urinalysis clear. Coronavirus not detected. She remains on heparin drip, nitroglycerin drip at 10 mcg/m. On 01/24/2021 patient seen in follow-up in the intensive care unit. Last night patient had an episode of acute shortness of breath, and flash pulmonary edema. Chest x-ray was obtained showing increased interstitial density related to acute interstitial edema. She was given diuretics, and she has made 3.5 L of urine output in last 24 hours, and she is in -1.2 L net fluid balance. Currently breathing much easier, she is on 2 L of oxygen pulse ox is 95%, she is in sinus mechanism, denies any chest pain this morning, she remains on heparin infusion per weight-based protocol, and nitroglycerin currently at 10 mics per kilo per minute. No repeat chest x-ray was done today, lungs are clear bilaterally. No altered mentation. Patient has also been complaining of right lower extremity pain, and a vascular surgery is consulted for right lower extremity arterial insufficiency. She is currently on oral aspirin. Today's labs have been reviewed, blood vessel, is normal at 5.5, hemoglobin is 10.7, sodium is 136, there is electrolytes were within normal limits, BUN is 22, and creatinine is 1.28 On 01/25/2021 patient is seen in follow-up in the intensive care unit. She seen in the postoperative period, post off-pump three-vessel coronary artery bypass grafting, with WESLEY to the LAD, and right radial arterial graft to the OM, SVG to the MARJ, left lower extremity endoscopic vein harvesting, and left radial artery endoscopic harvesting and exclusion of the left atrial appendage. Patient is sedated, and intubated on mechanical ventilator, currently on assist- control mode of ventilation with a rate of 14, tidal volume is 400, FiO2 100% and PEEP of 5. Postoperative blood gas and chest x-ray is pending, patient is currently on Cardizem drip at 5 mg per hour, nitroglycerin is at 5 mics per kilo per minute, Diprivan and is at 20 mics per kilo per minute, and 0.9 normal saline to 50 ML per hour. EBL Intra-Op was 1 L, patient received crystalloids and 750 ML of 5% albumin Intra-Op. Patient has right and left and mediastinal chest tubes in place with small amount of sanguinous output in the Pleur-evac's. No air leak noted. Patient is in sinus mechanism. PA pressure 16/9, CVP 24, and CO/CI are 2.7 and 1.6 respectively. Patient is in sinus mechanism, liver she is bradycardic with a rate of 44. On 01/27/2021 patient seen in follow-up in the intensive care unit, today is postoperative day #2, status post three-vessel off-pump coronary artery bypass grafting. Patient is awake and alert, in no acute distress, she is sitting up in a recliner, he is currently on 2 L of oxygen pulse ox is 93%, she is breathing comfortably, she appears weak, but appears to be in no respiratory distress, today's chest x-ray shows small right apical pneumothorax, and cardiomegaly. Patient's mediastinal chest tube was discontinued yesterday, she still has a right and left pleural chest tubes that are connected to the same Pleur-evac, and the output from both chest tubes is quite thin, and serous, and quite significant in amount, patient put out 960 mL over the last 24 hours. We'll catheter is in place, she is making urine in the order of 25-30 ML per hour, 0.9 normal saline is infusing at a rate of 10 ML per hour, dopamine drip has been discontinued yesterday, hemodynamically she is been stable. She is in sinus mechanism, denies any acute complaints, today's labs have been reviewed. Showing white blood cell count of 10.4, hemoglobin is 8.8, sodium is 136, potassium is 4.2, chloride is 107, CO2 is 21, BUN is 25, creatinine is 1. Hemodynamically she has been stable, her cardiac output is 4.2, and cardiac index is 2.5, Glady-Cyndi is supposed to be discontinued today. Patient has been ambulating with physical therapy, tolerates activity fairly well. Objective - Vital Signs Vital signs: Vital Signs Temp 100.4 F H 01/26/21 20:00 Pulse 87 01/27/21 08:15 Resp 36 H 01/27/21 08:00 BP 134/60 01/27/21 08:00 Pulse Ox 94 L 01/27/21 08:00 Intake & Output 01/26/21 01/27/21 01/27/21 18:59 06:59 18:59 Intake Total 1062.922 349 69 Output Total 1075 735 115 Balance -12.078 -386 -46 Weight 74.7 kg 75 kg Intake: IV 1022 349 69 .9NS Cardiac Output 180 80 .9NS Pressure Bag 102 39 9 Albumin Human 25% 50 ml 250 In Empty Bag 1 bag @ 100 mls/hr IVPB ONCE ONE Rx#: [id number] Diltiazem 125 mg In 20 Sodium Chloride 0.9% 100 ml @ 5 MG/HR 5 mls/hr IV .Q24H [facility] Rx#:[id number] Lactated Ringers 1,000 ml 420 230 60 @ 20 mls/hr IV .Q24H [facility] Rx#:[id number] ceFAZolin 2 gm In Sodium 50 Chloride 0.9% 50 ml @ 100 mls/hr IVPB ONCE ONE Rx# :[id number] Intake, IV Titration 40.922 Amount Insulin Regular 100 unit 14.022 In Sodium Chloride 0.9% 100 ml @ Per Protocol IV .Q0M [facility] Rx#:[id number] Nitroglycerin-D5w Pmx 50 26.9 mg In Dextrose/Water 1 250ml.bag @ 5 MCG/MIN 1.5 mls/hr IV .Q24H [facility] Rx#: [id number] Output: Chest Tube Drainage 580 410 30 Mediastinal 30 Right/Left Pleural 550 410 30 Urine 495 325 85 Other: Voiding Method Indwelling Catheter Indwelling Catheter ABP, PAP, CO, CI - Last Documented Arterial Blood Pressure 140/140 Pulmonary Artery Pressure 30/24 Cardiac Output 4.5 Cardiac Index 2.7 - Exam GENERAL EXAM: Awake and alert, quite pleasant, 75-year-old white female, on 2 L of oxygen a pulse ox of 93% HEAD: Normocephalic/atraumatic. EYES: Normal reaction of pupils, equal size. Conjunctiva pink, sclera white. NOSE: Clear with pink turbinates. THROAT: No erythema or exudates. NECK: No masses, no JVD, no thyroid enlargement, no adenopathy. CHEST: No chest wall deformity. Symmetrical expansion. Midsternal incision remained dry and intact, right and left pleural chest tube sites are clean dry and intact, connected to Pleur-evac, with large amount of serous output, no evidence of air leak noted LUNGS: Equal air entry with no crackles, wheeze, rhonchi or dullness. CVS: Regular rate and rhythm, normal S1 and S2, no gallops, no murmurs, no rubs ABDOMEN: Soft, nontender. No hepatosplenomegaly, normal bowel sounds, no guarding or rigidity. EXTREMITIES: No clubbing, no edema, no cyanosis, 2+ pulses and upper and lower extremities. Right radial arterial graft site is covered with surgical dressing, SANTY drain is in place with small amount of sanguinous output, compressed and draining MUSCULOSKELETAL: Muscle strength and tone normal. SPINE: No scoliosis or deformity SKIN: No rashes CENTRAL NERVOUS SYSTEM: Awake and alert No focal deficits, tone is normal in all 4 extremities. - Labs CBC & Chem 7: 01/27/21 04:15 01/27/21 04:15 Labs: Abnormal Lab Results - Last 24 Hours (Table) 01/26/21 01/26/21 01/26/21 Range/Units 12:02 17:01 20:28 RBC (3.80-5.40) m/uL Hgb (11.4-16.0) gm/dL Hct (34.0-46.0) % Neutrophils # (1.3-7.7) k/uL Lymphocytes # (1.0-4.8) k/uL Sodium (137-145) mmol/L Carbon Dioxide (22-30) mmol/L BUN (7-17) mg/dL Glucose (74-99) mg/dL POC Glucose (mg/dL) 104 H 201 H 174 H (75-99) mg/dL AST (14-36) U/L ALT (4-34) U/L Total Protein (6.3-8.2) g/dL Albumin (3.5-5.0) g/dL 01/27/21 01/27/21 01/27/21 Range/Units 04:15 04:15 07:12 RBC 3.10 L (3.80-5.40) m/uL Hgb 8.8 L (11.4-16.0) gm/dL Hct 26.3 L (34.0-46.0) % Neutrophils # 8.9 H (1.3-7.7) k/uL Lymphocytes # 0.7 L (1.0-4.8) k/uL Sodium 136 L (137-145) mmol/L Carbon Dioxide 21 L (22-30) mmol/L BUN 25 H (7-17) mg/dL Glucose 160 H (74-99) mg/dL POC Glucose (mg/dL) 183 H (75-99) mg/dL AST 340 H (14-36) U/L ALT 88 H (4-34) U/L Total Protein 4.9 L (6.3-8.2) g/dL Albumin 3.0 L (3.5-5.0) g/dL Assessment and Plan Plan: Assessment: #1. Acute non-ST segment elevation myocardial infarction in a patient found to have left main disease, status post off-pump 3 vessel coronary artery bypass grafting, with a WESLEY to LAD, and right radial arterial graft, endovascular vein harvest of the saphenous venous graft from the left leg, and endovascular harvest of the right radial arterial graft, exclusion of the left atrial appendage, postoperative day #2 #2. Routine postoperative ventilator management, extubated on 01/25/2021, on postop day #0 #3. Acute blood loss anemia related to sternotomy and coronary artery bypass surgery, normal outcome of surgery #4. Hypertension #5. Hyperlipidemia #6. Former smoker, preop FEV1 was 84% of predicted #7. Previous history of bowel resection with colostomy and subsequent reversal #8. History of right-sided breast cancer with chemotherapy and right-sided mastectomy #9. Hyperthyroidism, on Methimazole #10. History of depression Plan: Patient is doing well Continue encouraging deep breathing and coughing Patient is on Lasix, continue diuretics per CT surgery recommendations Today's chest x-rays and labs have been reviewed No acute events overnight GI and DVT prophylaxis per CT surgery We'll continue nebulized bronchodilators Encourage ambulation Follow-up labs and chest x-ray in the morning I performed a history & physical examination of the patient and discussed their management with my nurse practitioner, Shelley Hathaway. I reviewed the nurse practitioner's note and agree with the documented findings and plan of care. Lung sounds are positive for diminished breath sounds throughout the lung hanson. The findings and the impression was discussed with the patient. I attest to the documentation by the nurse practitioner. Time with Patient: Greater than 30
[2021-01-27] MEDS: FUROSEMIDE 10 MG/ML 2 ML VIAL IV SCH ×2 (11:37→20:50)
[2021-01-27 12:09] LABS: Glucose,Whole Blood 185 mg/dL (75-99)
[2021-01-27] MEDS: LACTATED RINGERS 1,000 ML IV SCH (12:35)
[2021-01-27] MEDS: amLODIPine 5 MG TAB PO SCH (12:36)
[2021-01-27] MEDS: KETOROLAC 15 MG/ML 1 ML VIAL IVP SCH ×3 (12:36→23:21)
--- NOTE | 2021-01-27 13:28 | P.PN ---
Subjective Progress Note Date: 01/27/21 Patient is a pleasant 75-year-old female came in with compensative chest pressure like sensation about a stress 10 in severity on the left side of the chest radiating to the left shoulder along with the diaphoresis or shortness of breath. Patient has a classic chest pain found to have some ST-T wave changes in the leads 1 before to V6. Patient also had mildly elevated troponin because of which patient underwent cardiac catheterization which showed critical left main disease along with the moderate disease in RCA and some disease in the left circumflex as well. Patient had left bundle branch block on the EKG no other EKGs to compare with. Patient is presently on heparin drip and being evaluated for coronary artery bypass grafting at this time. 01/23/2021 Patient is found to be hyperthyroid on this hospitalization patient was a started on methimazole further workup for for hyperthyroidism can be done as an outpatient after coronary artery disease his addressed. Patient is also found to have right lower extremity arterial insufficiency for which vascular surgery is recommending continuation of anticoagulation without any further intervention at this point of time. Patient is scheduled to undergo coronary artery bypass grafting in Thursday serum creatinine appears to have worsened a bit. Patient is also on IV calcium maría for blood pressure control. Patient is also receiving preoperative antibiotics. 01/24/2021 Patient is seen in follow-up continues to be closely monitored in the ICU. Plan is for myocardial revascularization surgery with Dr. Denys Flores tomorrow. Patient per nursing staff had an episode of pulmonary edema and was given Lasix with significant diuresis noted. 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 Patient continues on methimazole and will need further outpatient follow-up with endocrine once stabilized. Patient will be nothing by mouth at midnight. White blood count is 5.5 with a hemoglobin of 10.7, sodium is 136 with a potassium of 4.0, BUN is 22 and creatinine is 1.28. Magnesium is found to be 2.1 today. Patient will be placed on insulin drip status post surgery per protocol and will continue to monitor. Discussed with vascular surg amy and patient is currently on IV heparin and will likely be started on anticoagulation status post procedure and will follow-up outpatient for the right lower extremity vascularization. 01/25/2021 Patient is seen post surgery for three-vessel coronary artery bypass grafting, with WESLEY to the LAD, and right radial arterial graft to the OM, SVG to the AMRJ, left lower extremity endoscopic vein harvesting, and left radial artery endoscopic harvesting and exclusion of the left atrial appendage. Patient continues to be closely monitored in the ICU and continues to be intubated and per nursing staff attempting to wean as tolerated although patient continues to be quite lethargic. Patient was bradycardic on multiple drips. Patient is on insulin drip and will continue per protocol until patient is awake and tolerating diet. Hemoglobin stable at 8.6 this morning, sodium was 137 with a potassium 4.2 and creatinine 1.02. ALT, AST minimally elevated and will monitor. Magnesium was 1.9. 01/26/2021 Patient is evaluated at the bedside in the intensive care unit post op day #2 three-vessel coronary artery bypass grafting with WESLEY to the LAD and right radial arterial graft to the OM, SVG to the MARJ, left lower extremity endoscopic vein harvesting, and left radial artery endoscopic harvesting and exclusion of the left atrial appendage. Patient is awake alert and oriented 3. Patient was extubated yesterday evening in the ICU, without difficulty. Patient states that she is having some difficulty swallowing, she states that her sore throat is sore and was given medication from the nursing staff. Patient states that cold foods are helping. Patient will continue blood sugar monitoring. Patient's hemoglobin A1c was 6.6, patient is a prediabetic, continue with glycemic control, patient is tolerating a minimal oral diet, prefers cold foods. Patient will be transitioned off of the insulin drip to a sliding scale NovoLog coverage. Patient's blood sugars have been consistently in the 120s. Will continue to monitor for any hyperglycemia. Patient continues to have an indwelling catheter. Patient states that she is belching, denies any flatus. Patient is using her incentive spirometer. Patient continues with right and left pleural chest tubes to wall suction. Patient's mediastinal chest tube was pulled today via cardiothoracic services. Dopamine and Cardizem have been discontinued via cardiothoracic services. Patient is normal sinus rhythm with a heart rate of 70s, bundle branch block. Continue to encourage ambulation, PT OT, continue to encourage incentive spirometer. 01/27/2021 Patient is evaluated today in the chair. Patient states that she was up ambulating with physical therapy and tolerated it well. Patient states that the Magic cup that was ordered by cardiothoracic services has helped tremendously. She states that her mouth still feels kind of sticky and has a hard time of thicker foods however she does have an appetite. She denies any nausea, vomiting. We'll continue to monitor blood sugars closely as patient continues to tolerate more oral intake. Will add a small dose of scheduled insulin with parameters patient continues to tolerate diet well. Patient was started on a small dose of IV Lasix from cardiothoracic services. Swollen and are outlined have been discontinued, continues on Cordis for continuous CVP monitoring. Chest tubes were left pleural remain for at least another 24 hours. Transfer to medical floor the next 24-48 hours, recommendations from cardiothoracic surgery. Continue to encourage ambulation, incentive spirometry use, wean oxygen as tolerated. Continue with current pain medication regimen. Patient continues to be in normal sinus rhythm, afebrile, blood pressure 117/50 heart rate 85. Patient is 93% on 1 L nasal cannula. Replace electrolytes per protocol. ROS: Constitutional: Reports Fatigue, denied any fever. Cardio vascular: Reports mild incisional pain, denies palpitations, denies chest pain Gastrointestinal : Denies nauses, denies flatus, reports belching, reports mild nasuea, denies abdominal pain Pulmonary: Reports mild SOB at rest, denies cough Neurologic denied any new focal deficits All inpatient medications were reviewed and appropriate changes in these medications as dictated in the interval history and assessment and plan. PHYSICAL EXAMINATION: GENERAL: The patient is alert and oriented x3, not in any acute distress. Well developed, well nourished. HEENT: Pupils are round and equally reacting to light. EOMI. No scleral icterus. No conjunctival pallor. Normocephalic, atraumatic. No pharyngeal erythema. No thyromegaly. CARDIOVASCULAR: S1 and S2 present. No murmurs, rubs, or gallops. PULMONARY: Anterior chest wall clear to auscultation, unable to auscultate posterior due to patient positioning with multiple lines. ABDOMEN: Soft, nontender, nondistended, normoactive bowel sounds. MUSCULOSKELETAL: No joint swelling or deformity. EXTREMITIES: No cyanosis, clubbing, mild pedal edema NEUROLOGICAL: Gross neurological examination did not reveal any focal deficits. SKIN: Surgical incisions noted. Assessment and plan: -Non-ST segment elevation myocardial infarction, acute: Patient is status post cardiac catheterization, patient underwent three-vessel CABG with Dr. Denys Flores on 01/24/2021. -Hypertension, patient continues on oral mouth metoprolol, Norvasc -Hyperlipidemia, patient continues on Lipitor -Left bundle-branch block unclear if it's a new lead prior left bundle-branch block continue with cardiology consultation -Hyperthyroidism: Primary hyperthyroidism continue with methimazole. Patient will need outpatient follow-up with endocrinology -Right lower extremity arterial insufficiency continuing on subcutaneous heparin -Mild acute renal failure probably secondary to contrast, prerenal azotemia, creatinine within normal today at 0.91 continue to monitor with daily labs. Hyperglycemia, patient is a prediabetic, transition to sliding scale coverage continue to monitor blood sugars Leukocytosis, reactive in nature related to three-vessel CABG performed . -Full code -DVT prophylaxis: Currently on subcut heparin Plan: Patient will continue to be closely monitored in the ICU and underwent CABG with Dr. Denys Flores. Patient is evaluated at the bedside today she is awake alert and oriented 3. Patient is to continue with PT OT, increase ambulation, encourage incentive spirometry. Patient can advance diet as tolerated, continue to monitor blood sugars. Continue with NovoLog sliding scale coverage. Will add a small dose of scheduled insulin coverage with parameters as patient continues to tolerate an oral diet. Patient will continue on Magic mouthwash for oral pain and discomfort. Patient continues with left and right pleural chest tubes, indwelling catheter, Cordis for CVP monitoring, recommendations from surgical services. Continue to follow along closely. Thank you for the consultation. Objective - Vital Signs Vital signs: Vital Signs Temp 100.4 F H 01/26/21 20:00 Pulse 85 01/27/21 13:00 Resp 23 01/27/21 13:00 BP 117/50 01/27/21 13:00 Pulse Ox 93 L 01/27/21 13:00 Intake & Output 01/26/21 01/27/21 01/27/21 18:59 06:59 18:59 Intake Total 1062.922 349 138 Output Total 1075 735 255 Balance -12.078 -386 -117 Weight 74.7 kg 75 kg Intake: IV 1022 349 138 .9NS Cardiac Output 180 80 .9NS Pressure Bag 102 39 18 Albumin Human 25% 50 ml 250 In Empty Bag 1 bag @ 100 mls/hr IVPB ONCE ONE Rx#: [id number] Diltiazem 125 mg In 20 Sodium Chloride 0.9% 100 ml @ 5 MG/HR 5 mls/hr IV .Q24H [facility] Rx#:[id number] Lactated Ringers 1,000 ml 420 230 120 @ 20 mls/hr IV .Q24H [facility] Rx#:[id number] ceFAZolin 2 gm In Sodium 50 Chloride 0.9% 50 ml @ 100 mls/hr IVPB ONCE ONE Rx# :[id number] Intake, IV Titration 40.922 Amount Insulin Regular 100 unit 14.022 In Sodium Chloride 0.9% 100 ml @ Per Protocol IV .Q0M [facility] Rx#:[id number] Nitroglycerin-D5w Pmx 50 26.9 mg In Dextrose/Water 1 250ml.bag @ 5 MCG/MIN 1.5 mls/hr IV .Q24H [facility] Rx#: [id number] Output: Chest Tube Drainage 580 410 50 Mediastinal 30 Right/Left Pleural 550 410 50 Drainage 15 Left Pleural Chest Tube 5 Right Pleural Chest Tube 10 Urine 495 325 190 Other: Voiding Method Indwelling Catheter Indwelling Catheter ABP, PAP, CO, CI - Last Documented Arterial Blood Pressure 140/140 Pulmonary Artery Pressure 30/24 Cardiac Output 4.5 Cardiac Index 2.7 - Labs CBC & Chem 7: 01/27/21 04:15 01/27/21 04:15 Labs: Abnormal Lab Results - Last 24 Hours (Table) 01/26/21 01/26/21 01/27/21 Range/Units 17:01 20:28 04:15 RBC 3.10 L (3.80-5.40) m/uL Hgb 8.8 L (11.4-16.0) gm/dL Hct 26.3 L (34.0-46.0) % Neutrophils # 8.9 H (1.3-7.7) k/uL Lymphocytes # 0.7 L (1.0-4.8) k/uL Sodium (137-145) mmol/L Carbon Dioxide (22-30) mmol/L BUN (7-17) mg/dL Glucose (74-99) mg/dL POC Glucose (mg/dL) 201 H 174 H (75-99) mg/dL AST (14-36) U/L ALT (4-34) U/L Total Protein (6.3-8.2) g/dL Albumin (3.5-5.0) g/dL 01/27/21 01/27/21 01/27/21 Range/Units 04:15 07:12 12:08 RBC (3.80-5.40) m/uL Hgb (11.4-16.0) gm/dL Hct (34.0-46.0) % Neutrophils # (1.3-7.7) k/uL Lymphocytes # (1.0-4.8) k/uL Sodium 136 L (137-145) mmol/L Carbon Dioxide 21 L (22-30) mmol/L BUN 25 H (7-17) mg/dL Glucose 160 H (74-99) mg/dL POC Glucose (mg/dL) 183 H 185 H (75-99) mg/dL AST 340 H (14-36) U/L ALT 88 H (4-34) U/L Total Protein 4.9 L (6.3-8.2) g/dL Albumin 3.0 L (3.5-5.0) g/dL Assessment and Plan Time with Patient: Greater than 30
--- NOTE | 2021-01-27 16:32 | P.PN ---
Subjective Progress Note Date: 01/27/21 This 75-year-old female is admitted to the hospital with non-STEMI. Had a cardiac catheterization and was found to have triple-vessel disease including left main. Patient underwent aortocoronary bypass surgery with WESLEY graft to the LAD and radial graft to the circumflex and vein graft to the distal RCA are PLV branch. Patient seemed to be extubated. Since sitting in the chair complaints of chest pain but no in no acute distress. No acute arrhythmias. Patient had some arterial insufficiency in the right leg but no symptoms being being followed by vascular surgeon. Overall patient seemed to be progressing well. Continue current management. 01/27/2021 : This patient is doing relatively well. Post bypass day 2. Mediastinal chest tube has been removed. We'll chest tubes are still present. Chest x-ray showed a small apical pneumothorax. Urine output is moderate. No arrhythmias noted. Patient seemed to be and positive spirit. Denies any significant chest pain. Doesn't appear to be in acute distress. Continue current medical therapy. Incentive spirometry. Increase activity as tolerated. Objective - Vital Signs Vital signs: Vital Signs Temp 98.5 F 01/27/21 13:00 Pulse 75 01/27/21 15:42 Resp 22 01/27/21 15:00 BP 117/53 01/27/21 15:00 Pulse Ox 93 L 01/27/21 15:00 Intake & Output 01/26/21 01/27/21 01/27/21 18:59 06:59 18:59 Intake Total 1062.922 349 207 Output Total 1075 735 365 Balance -12.078 -386 -158 Weight 74.7 kg 75 kg Intake: IV 1022 349 207 .9NS Cardiac Output 180 80 .9NS Pressure Bag 102 39 27 Albumin Human 25% 50 ml 250 In Empty Bag 1 bag @ 100 mls/hr IVPB ONCE ONE Rx#: [id number] Diltiazem 125 mg In 20 Sodium Chloride 0.9% 100 ml @ 5 MG/HR 5 mls/hr IV .Q24H [facility] Rx#:[id number] Lactated Ringers 1,000 ml 420 230 180 @ 20 mls/hr IV .Q24H [facility] Rx#:[id number] ceFAZolin 2 gm In Sodium 50 Chloride 0.9% 50 ml @ 100 mls/hr IVPB ONCE ONE Rx# :[id number] Intake, IV Titration 40.922 Amount Insulin Regular 100 unit 14.022 In Sodium Chloride 0.9% 100 ml @ Per Protocol IV .Q0M [facility] Rx#:[id number] Nitroglycerin-D5w Pmx 50 26.9 mg In Dextrose/Water 1 250ml.bag @ 5 MCG/MIN 1.5 mls/hr IV .Q24H [facility] Rx#: [id number] Output: Chest Tube Drainage 580 410 50 Mediastinal 30 Right/Left Pleural 550 410 50 Drainage 65 Left Pleural Chest Tube 30 Right Pleural Chest Tube 35 Urine 495 325 250 Other: Voiding Method Indwelling Catheter Indwelling Catheter ABP, PAP, CO, CI - Last Documented Arterial Blood Pressure 140/140 Pulmonary Artery Pressure 30/24 Cardiac Output 4.5 Cardiac Index 2.7 - Exam GENERAL EXAM: Patient is alert and oriented and doesn't appear to be in any acute distress HEENT: Normocephalic. Normal reaction of pupils, equal size, normal range of extraocular motion. No erythema or exudates in the throat. NECK: No masses, no nuchal rigidity. CHEST: Postsurgical LUNGS: Equal air entry with no crackles or wheeze. HEART: S1 and S2 normal with no audible mumurs or gallops. Regular rhythm, femorals equal on both sides.. ABDOMEN: No hepatosplenomegaly, normal bowel sounds, no guarding or rigidity. SKIN: No rashes CENTRAL NERVOUS SYSTEM: No focal deficits. EXTREMITIES: No cyanosis, clubbing or edema. - Labs CBC & Chem 7: 01/27/21 04:15 01/27/21 04:15 Labs: Abnormal Lab Results - Last 24 Hours (Table) 01/26/21 01/26/21 01/27/21 Range/Units 17:01 20:28 04:15 RBC 3.10 L (3.80-5.40) m/uL Hgb 8.8 L (11.4-16.0) gm/dL Hct 26.3 L (34.0-46.0) % Neutrophils # 8.9 H (1.3-7.7) k/uL Lymphocytes # 0.7 L (1.0-4.8) k/uL Sodium (137-145) mmol/L Carbon Dioxide (22-30) mmol/L BUN (7-17) mg/dL Glucose (74-99) mg/dL POC Glucose (mg/dL) 201 H 174 H (75-99) mg/dL AST (14-36) U/L ALT (4-34) U/L Total Protein (6.3-8.2) g/dL Albumin (3.5-5.0) g/dL 01/27/21 01/27/21 01/27/21 Range/Units 04:15 07:12 12:08 RBC (3.80-5.40) m/uL Hgb (11.4-16.0) gm/dL Hct (34.0-46.0) % Neutrophils # (1.3-7.7) k/uL Lymphocytes # (1.0-4.8) k/uL Sodium 136 L (137-145) mmol/L Carbon Dioxide 21 L (22-30) mmol/L BUN 25 H (7-17) mg/dL Glucose 160 H (74-99) mg/dL POC Glucose (mg/dL) 183 H 185 H (75-99) mg/dL AST 340 H (14-36) U/L ALT 88 H (4-34) U/L Total Protein 4.9 L (6.3-8.2) g/dL Albumin 3.0 L (3.5-5.0) g/dL Assessment and Plan (1) CAD (coronary artery disease) Current Visit: Yes Status: Acute Code(s): I25.10 - ATHSCL HEART DISEASE OF [place] CORONARY ARTERY W/O ANG PCTRS SNOMED Code(s): 00895885 (2) Acute non-ST elevation myocardial infarction (NSTEMI) Current Visit: Yes Status: Acute Code(s): I21.4 - NON-ST ELEVATION (NSTEMI) MYOCARDIAL INFARCTION SNOMED Code(s): 964957347 (3) History of breast cancer Current Visit: Yes Status: Acute Code(s): Z85.3 - PERSONAL HISTORY OF MALIGNANT NEOPLASM OF BREAST SNOMED Code(s): 928604839 (4) Hyperlipidemia Current Visit: Yes Status: Acute Code(s): E78.5 - HYPERLIPIDEMIA, UNSPECIFIED SNOMED Code(s): 76339257 Plan: Patient is status post CABG. Progressing fairly well. [place] and mediastinal tubes were removed. Continue current medical therapy and increase activity as tolerated. Incentive spirometry
[2021-01-27 16:40] LABS: Glucose,Whole Blood 159 mg/dL (75-99)
[2021-01-27 20:25] LABS: Glucose,Whole Blood 143 mg/dL (75-99)
[2021-01-27] MEDS: MELATONIN 5 MG TABLET PO SCH (20:49)
[2021-01-27] MEDS: SENNOSIDES-DOCUSATE SODIUM 1 EACH TAB PO SCH (20:50)
[2021-01-28] MEDS: HYDROcodone/APAP 5-325MG 1 EACH TAB PO PRN ×2 (03:30→04:27)
[2021-01-28] MEDS: ALPRAZolam 0.25 MG TAB PO PRN ×2 (04:27→08:21)
[2021-01-28] MEDS: KETOROLAC 15 MG/ML 1 ML VIAL IVP SCH (05:14)
[2021-01-28 06:29] LABS: Basophils % (A) 0 %; Eosinophils # (A) 0.1 k/uL (0-0.7); Eosinophils % (A) 1 %; HCT 24.6 % (34.0-46.0); Hypochromasia Slight; Lymphocytes % (A) 12 %; MCH 28.1 pg (25.0-35.0); MCHC 32.3 g/dL (31.0-37.0); Mean Platelet Volume 9.9; Monocytes # (A) 0.4 k/uL (0-1.0); Monocytes % (A) 5 %; Neutrophils # (A) 6.5 k/uL (1.3-7.7); Neutrophils % (A) 80 %; Platelet Count 182 k/uL (150-450); RBC 2.83 m/uL (3.80-5.40); RDW 13.5 % (11.5-15.5); WBC 8.2 k/uL (3.8-10.6)
[2021-01-28 06:45] LABS: Albumin 2.8 g/dL (3.5-5.0); Calcium 8.7 mg/dL (8.4-10.2); Potassium 4.4 mmol/L (3.5-5.1); Total Bilirubin 0.7 mg/dL (0.2-1.3); Total Protein 4.9 g/dL (6.3-8.2)
[2021-01-28 06:56] LABS: Glucose,Whole Blood 144 mg/dL (75-99)
[2021-01-28] MEDS: INSULIN ASPART (NovoLOG) 100 UNIT/ML VIAL SQ SCH ×7 (07:01→20:13)
[2021-01-28] MEDS: PANTOPRAZOLE 40 MG TABLET PO SCH (07:01)
[2021-01-28] MEDS ORDERED: ACETAMINOPHEN TAB 325 MG TAB PO PRN (07:22)
[2021-01-28] MEDS: IPRATROPIUM-ALBUTEROL 3 ML NEB INHALATION SCH ×4 (07:43→20:38)
--- NOTE | 2021-01-28 07:50 | P.PN ---
Subjective Progress Note Date: 01/28/21 Principal diagnosis: Coronary artery disease with left main disease, NSTEMI this admission hyperthyroid discovered with preoperative labs as well as borderline diabetic. Previous medical history of hypertension, hyperlipidemia, breast cancer status post right mastectomy with chemotherapy approximately 25 years ago without radiation, colostomy for bowel rest status post reversal, previous tobacco dependence, remote history of pneumonia. Right lower extremity arterial insuffic iency after heart cathterization POD #3 off-pump CABG 3 with WESLEY to the LAD, left radial artery graft to the obtuse marginal coronary artery, reverse saphenous vein graft to the posterior lateral branch of the right coronary artery. Endovascular left thigh greater saphenous vein harvest. Endovascular left radial artery harvest. Exclusion of the left atrial appendage with a 35 mm Atriclip. Postoperative acute blood loss anemia, expected post cardiac surgery given hemodilution. The patient is currently sitting up in the recliner in the ICU in no acute distress. She does complain of post surgical pain, mostly controlled on current medication regimen, and mild shortness of breath. States mouth pain has significantly improved since addition of magic mouthwash, able to tolerate some food. Remains in sinus rhythm and hemodynamically stable. Did ambulate to the [facility]ter yesterday with physical therapy. Right internal juggler cordis, right/left pleural chest tubes remain. Was started on IV lasix yesterday for 48 hours. No other new concerns. Objective - Vital Signs Vital signs: Vital Signs Temp 97.8 F 01/28/21 04:00 Pulse 74 01/28/21 07:00 Resp 30 H 01/28/21 07:00 BP 99/71 01/28/21 07:00 Pulse Ox 94 L 01/28/21 07:00 Intake & Output 01/27/21 01/28/21 01/28/21 18:59 06:59 18:59 Intake Total 276 396 143 Output Total 525 545 Balance -249 -149 143 Weight 74.4 kg Intake: IV 276 276 23 .9NS Pressure Bag 36 36 3 Lactated Ringers 1,000 ml 240 240 20 @ 20 mls/hr IV .Q24H [facility] Rx#:[id number] Oral 120 120 Output: Chest Tube Drainage 50 Right/Left Pleural 50 Drainage 125 285 Left Pleural Chest Tube 45 160 Right Pleural Chest Tube 80 125 Urine 350 260 Straight 125 Other: Voiding Method Indwelling Catheter Bedside Commode # Voids 0 0 ABP, PAP, CO, CI - Last Documented Arterial Blood Pressure 140/140 Pulmonary Artery Pressure 30/24 Cardiac Output 4.5 Cardiac Index 2.7 - Exam CONSTITUTIONAL: Appears comfortable, cooperative, no acute distress RESPIRATORY: Lungs sounds diminished bilaterally. Respirations even, nonlabored. Currently on 2 LPM NC with oxygen saturation 96%. Only able to achieve 500 mL on incentive spirometry. Weak non-productive cough. CARDIOVASCULAR: S1, S2 present. Regular rate and rhythm, sinus rhythm on telemetry. Sternum stable. Palpable peripheral pulses bilaterally except right lower extremity, faint doppler PT pulse. No edema present. No calf pain or tenderness noted. Heart hugger in place with patient demonstrating appropriate use. Antiembolism stockings, SCDs present. GASTROINTESTINAL: Abdomen soft, nontender, nondistended. Active bowel sounds present 4 quadrants. Tolerating minimal diet. Positive flatus GENITOURINARY: Christopher discontinued yesterday. Output mnimal despite lasix, was straight cathed x1 for 125 ml, total 735 mL in the last 24 hours INTEGUMENTARY: Skin is warm and dry with evidence of good perfusion. Anterior chest incision well approximated and covered with dry intact dressing. Left lower extremity EVH site well approximated without redness or drainage. 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 Right lower extremity cool to touch NEUROLOGIC: Cranial nerves II through XII intact MUSKULOSKELETAL: Able to move all extremities, strength equal bilaterally, gait normal PSYCHIATRIC: Alert and oriented to person place and time, appropriate affect, intact judgment and insight INVASIVE LINES AND TUBES: Left/right pleural chest tubes present and connected to wall suction, no air leaks present. Left CT with 120 mL serous drainage ov ernight, 250 mL in the last [address] with 90 mL serous drainage overnight, 250 mL in the last 24 hours. Right internal jugular Cordis present. - Allied health notes Allied health notes reviewed: nursing - Labs CBC & Chem 7: 01/28/21 06:10 01/28/21 06:10 Labs: Abnormal Lab Results - Last 24 Hours (Table) 01/27/21 01/27/21 01/27/21 Range/Units 12:08 16:38 20:24 RBC (3.80-5.40) m/uL Hgb (11.4-16.0) gm/dL Hct (34.0-46.0) % Sodium (137-145) mmol/L BUN (7-17) mg/dL Creatinine (0.52-1.04) mg/dL Glucose (74-99) mg/dL POC Glucose (mg/dL) 185 H 159 H 143 H (75-99) mg/dL AST (14-36) U/L ALT (4-34) U/L Total Protein (6.3-8.2) g/dL Albumin (3.5-5.0) g/dL 01/28/21 01/28/21 01/28/21 Range/Units 06:10 06:10 06:55 RBC 2.83 L (3.80-5.40) m/uL Hgb 8.0 L (11.4-16.0) gm/dL Hct 24.6 L (34.0-46.0) % Sodium 135 L (137-145) mmol/L BUN 43 H (7-17) mg/dL Creatinine 1.47 H (0.52-1.04) mg/dL Glucose 139 H (74-99) mg/dL POC Glucose (mg/dL) 144 H (75-99) mg/dL AST 264 H (14-36) U/L ALT 140 H (4-34) U/L Total Protein 4.9 L (6.3-8.2) g/dL Albumin 2.8 L (3.5-5.0) g/dL - Imaging and Cardiology Chest x-ray: image reviewed Assessment and Plan Assessment: 1. Coronary artery disease with left main disease, NSTEMI this admission, S/P 3V off pump cabg 2. History of hypertension 3. Hyperlipidemia, treated, cholesterol 96, LDL 40 4. Breast cancer status post right mastectomy with chemotherapy approximately 25 years ago 5. Colostomy for bowel rest status post reversal 6. Previous tobacco dependence, pre-op FEV1 84% of predicted 7. Remote history of pneumonia 8. Hyperthyroid (discovered on pre-op labs), TSH <0.015, FT4 5.21 9. Borderline diabetes, pre-op A1c 6.6% 10. Right lower extremity arterial insufficiency after heart cathterization 11. Postoperative acute blood loss anemia, expected 12. Transaminitis Plan: 1. Continue aspirin, statin, plavix, beta maría. Will increase beta maría as tolerated 2. Continue norvasc for radial artery spasm prophylaxis, do not DC CCB without discussing with cardiac surgery 3. Wean oxygen as tolerated. Encourage incentive spirometry 10 times every hour while awake. Bronchodilators per pulmonology 4. Increase activity, ambulate as tolerated. PT/OT/cardiac rehab following. 5. Will monitor daily labs, CXR. Electrolyte replacement per protocol. Continue IV lasix 20 mg BID for 2 more doses 6. GI/DVT prophylaxis 7. Pain control with current medication regimen, toradol dc'd due to increased creatinine 8. Insulin management per primary care service. A1c suggests pre-diabetes, patient need tight blood sugar control to promote sternal union and prevent infection 9. DC cordis 10. Will DC chest tubes 11. Encourage oral intake 12. Family is requesting rehab placement at discharge as patient lives alone and there is no one available to assist her upon discharge. Will consult Sandra for possible IPR at DC 13. Right lower extremity arterial insufficiency management per Dr. Christopher 14. Will place transfer orders for [facility] cardiac stepdown unit. May transfer when bed available 15. More recommendations to follow Time with Patient: Greater than 30
--- NOTE | 2021-01-28 07:51 | XR ---
EXAMINATION TYPE: XR chest 1V portable DATE OF EXAM: 01/28/2021 COMPARISON: 821 INDICATION: Postcardiac surgery TECHNIQUE: Single frontal view of the chest is obtained. FINDINGS: The heart size is mildly prominent. The pulmonary vasculature is normal. Bilateral chest tubes are present. Right apical pneumothorax remains present. Tiny left apical pneumo thorax may be present. Mild left lower lobe infiltrate is present IMPRESSION: 1. Small right apical pneumothorax slightly diminished from comparison. 2. Tiny left apical pneumothorax may be an interval development. 3. Mild developing left lower lobe infiltrate. Correlate for atelectasis or pneumonia
[2021-01-28] MEDS: HEPARIN SODIUM,PORCINE/PF 5,000 UNIT/0.5 ML SYRINGE SQ SCH ×3 (08:15→23:53)
[2021-01-28] MEDS: ATORVASTATIN 40 MG TAB PO SCH (08:19)
[2021-01-28] MEDS: buPROPion 75 MG TAB PO SCH (08:19)
[2021-01-28] MEDS: ASPIRIN 325 MG TAB PO SCH (08:19)
[2021-01-28] MEDS: CLOPIDOGREL 75 MG TAB PO SCH (08:19)
[2021-01-28] MEDS: FUROSEMIDE 10 MG/ML 2 ML VIAL IV SCH ×2 (08:19→20:13)
[2021-01-28] MEDS: AMITRIPTYLINE HCL 10 MG TAB PO SCH (08:19)
[2021-01-28] MEDS: methIMAzole 5 MG TAB PO SCH (08:20)
[2021-01-28] MEDS: SERTRALINE 100 MG TAB PO SCH (08:20)
[2021-01-28] MEDS: METOPROLOL TARTRATE 12.5 MG TAB PO SCH ×2 (08:20→20:13)
[2021-01-28] MEDS: MUPIROCIN 2% OINT 22 GM TUBE NASAL SCH ×2 (08:20→20:14)
[2021-01-28] MEDS: MAG HYDROX/AL HYDROX/SIMETH 30 ML, LIDOCAINE VISCOUS 30 ML, NYSTATIN 100,000 UNIT/ML SU... PO SCH ×9 (08:21→20:16)
[2021-01-28] MEDS ORDERED: HYDROcodone/APAP 5-325MG 1 EACH TAB PO PRN (08:53)
--- NOTE | 2021-01-28 09:51 | PN ---
PROGRESS NOTE This lady under aortocoronary bypass surgery with three grafts and she is doing remarkably well. She is not on pressors and maintaining sinus rhythm. No further significant bradycardia. She still has chest tubes with two small apical pneumothorax bilaterally, which are improving. PHYSICAL EXAMINATION: Vitals are stable. No JVD. S1-S2 heard normally. Pericardial rub is evident. Lungs reveal fair air entry. Abdomen is soft. Lower extremities reveal diminished pulses. Central nervous system is normal. IMPRESSION: 1. Status post aortocoronary bypass surgery. Recovering well. She has two small apical pneumothoraxes bilaterally. 2. Hyperlipidemia. RECOMMENDATIONS: Continue current medications and supportive care. No other intervention from a cardiac standpoint. Agree with current medications. Continue incentive spirometry and pulmonary toilet. MMODL / IJN: [id number] /
[2021-01-28 11:16] LABS: Glucose,Whole Blood 138 mg/dL (75-99)
--- NOTE | 2021-01-28 11:19 | P.PN ---
Subjective Progress Note Date: 01/28/21 Principal diagnosis: Coronary artery disease, left main stenosis, non-ST elevated UT This is a very pleasant 75-year-old female patient who has a history of previous colectomy with colostomy and subsequent reversal, hyperlipidemia, hypertension, osteoarthritis, right-sided breast cancer status post mastectomy, depression. Remote smoking history. She presented to the emergency room on 01/21/2021 with complaints of left-sided chest discomfort radiating down her left arm and into her back. Echocardiogram revealed a normal left ventricular systolic function with ejection fraction 55-60%. No significant valvular disease. She was taken to the cardiac catheterization lab on 01/22/2021 and found to have eccentric 60- 70% stenosis of the left main, 80-90% eccentric lesion in the proximal portion of the left circumflex. Moderate to severe disease involving the ostium of the right coronary artery and 60% stenosis in the mid RCA. Computed tomography scan of the chest revealed atherosclerotic vascular disease. Extensive coronary artery calcification. Pleural thickening and fluid at the lung bases. Minimal atelectasis left lung base. No significant aortic valve calcification. The plan is for coronary artery bypass surgery on 01/25/2021. She is seen today in consultation in the intensive care unit. She is currently awake and alert in no acute distress. No chest pain currently. No worsening shortness of breath cough or congestion. She is maintaining O2 saturation in the mid 90s on 2 L/m nasal cannula. White count 5.8. Hemoglobin 11.7. Platelets 197. Sodium 137. Potassium 4.1. Bicarb 20. Creatinine 1.26. Urinalysis clear. Coronavirus not detected. She remains on heparin drip, nitroglycerin drip at 10 mcg/m. On 01/24/2021 patient seen in follow-up in the intensive care unit. Last night patient had an episode of acute shortness of breath, and flash pulmonary edema. Chest x-ray was obtained showing increased interstitial density related to acute interstitial edema. She was given diuretics, and she has made 3.5 L of urine output in last 24 hours, and she is in -1.2 L net fluid balance. Currently breathing much easier, she is on 2 L of oxygen pulse ox is 95%, she is in sinus mechanism, denies any chest pain this morning, she remains on heparin infusion per weight-based protocol, and nitroglycerin currently at 10 mics per kilo per minute. No repeat chest x-ray was done today, lungs are clear bilaterally. No altered mentation. Patient has also been complaining of right lower extremity pain, and a vascular surgery is consulted for right lower extremity arterial insufficiency. She is currently on oral aspirin. Today's labs have been reviewed, blood vessel, is normal at 5.5, hemoglobin is 10.7, sodium is 136, there is electrolytes were within normal limits, BUN is 22, and creatinine is 1.28 On 01/25/2021 patient is seen in follow-up in the intensive care unit. She seen in the postoperative period, post off-pump three-vessel coronary artery bypass grafting, with WESLEY to the LAD, and right radial arterial graft to the OM, SVG to the MARJ, left lower extremity endoscopic vein harvesting, and left radial artery endoscopic harvesting and exclusion of the left atrial appendage. Patient is sedated, and intubated on mechanical ventilator, currently on assist- control mode of ventilation with a rate of 14, tidal volume is 400, FiO2 100% and PEEP of 5. Postoperative blood gas and chest x-ray is pending, patient is currently on Cardizem drip at 5 mg per hour, nitroglycerin is at 5 mics per kilo per minute, Diprivan and is at 20 mics per kilo per minute, and 0.9 normal saline to 50 ML per hour. EBL Intra-Op was 1 L, patient received crystalloids and 750 ML of 5% albumin Intra-Op. Patient has right and left and mediastinal chest tubes in place with small amount of sanguinous output in the Pleur-evac's. No air leak noted. Patient is in sinus mechanism. PA pressure 16/9, CVP 24, and CO/CI are 2.7 and 1.6 respectively. Patient is in sinus mechanism, liver she is bradycardic with a rate of 44. On 01/27/2021 patient seen in follow-up in the intensive care unit, today is postoperative day #2, status post three-vessel off-pump coronary artery bypass grafting. Patient is awake and alert, in no acute distress, she is sitting up in a recliner, he is currently on 2 L of oxygen pulse ox is 93%, she is breathing comfortably, she appears weak, but appears to be in no respiratory distress, today's chest x-ray shows small right apical pneumothorax, and cardiomegaly. Patient's mediastinal chest tube was discontinued yesterday, she still has a right and left pleural chest tubes that are connected to the same Pleur-evac, and the output from both chest tubes is quite thin, and serous, and quite significant in amount, patient put out 960 mL over the last 24 hours. We'll catheter is in place, she is making urine in the order of 25-30 ML per hour, 0.9 normal saline is infusing at a rate of 10 ML per hour, dopamine drip has been discontinued yesterday, hemodynamically she is been stable. She is in sinus mechanism, denies any acute complaints, today's labs have been reviewed. Showing white blood cell count of 10.4, hemoglobin is 8.8, sodium is 136, potassium is 4.2, chloride is 107, CO2 is 21, BUN is 25, creatinine is 1. Hemodynamically she has been stable, her cardiac output is 4.2, and cardiac index is 2.5, [place] is supposed to be discontinued today. Patient has been ambulating with physical therapy, tolerates activity fairly well. On 01/28/2021 patient seen in follow-up in the intensive care unit, today is postoperative day #3 as post three-vessel off-pump coronary artery bypass grafting. Patient is resting in the recliner, mildly short of breath at rest and, in conversation, but appears to be in no acute distress, had 2 L of oxygen pulse ox is 95 percent. Hemodynamically she stable, she is afebrile. CT surgery is at the bedside, and patient had both pleural chest tubes removed this morning. This morning's chest x-ray showed a small right apical pneumothorax which is slightly diminished from yesterday's chest x-ray, and tiny left apical pneumothorax, mild developing left lower lobe infiltrate. Patient is working on incentive spirometer, she is achieving 500-750 on it today. Lung sounds reveal diminished breath sounds overall, with bibasilar crackles. Patient remains on IV Lasix 20 mg IV twice daily. She is in -398 mL net fluid balance over the last 24 hours, her incisions are clean dry and intact, no significant swelling involving the lower extremities. She is in sinus mechanism. She has been tolerating ambulation. Objective - Vital Signs Vital signs: Vital Signs Temp 97.2 F L 01/28/21 08:00 Pulse 68 01/28/21 10:00 Resp 24 01/28/21 10:00 BP 107/52 01/28/21 10:00 Pulse Ox 95 01/28/21 10:00 Intake & Output 01/27/21 01/28/21 01/28/21 18:59 06:59 18:59 Intake Total 276 396 189 Output Total 525 545 50 Balance -249 -149 139 Weight 74.4 kg Intake: IV 276 276 69 .9NS Pressure Bag 36 36 9 Lactated Ringers 1,000 ml 240 240 60 @ 20 mls/hr IV .Q24H [facility] Rx#:[id number] Oral 120 120 Output: Chest Tube Drainage 50 Right/Left Pleural 50 Drainage 125 285 Left Pleural Chest Tube 45 160 Right Pleural Chest Tube 80 125 Urine 350 260 50 Straight 125 Other: Voiding Method Indwelling Catheter Bedside Commode # Voids 0 0 ABP, PAP, CO, CI - Last Documented Arterial Blood Pressure 140/140 Pulmonary Artery Pressure 30/24 Cardiac Output 4.5 Cardiac Index 2.7 - Exam GENERAL EXAM: Awake and alert, quite pleasant, 75-year-old white female, on 2 L of oxygen a pulse ox of 93% HEAD: Normocephalic/atraumatic. EYES: Normal reaction of pupils, equal size. Conjunctiva pink, sclera white. NOSE: Clear with pink turbinates. THROAT: No erythema or exudates. NECK: No masses, no JVD, no thyroid enlargement, no adenopathy. CHEST: No chest wall deformity. Symmetrical expansion. Midsternal incision remained dry and intact, right and left pleural chest tube sites are clean dry and intact, connected to Pleur-evac, with large amount of serous output, no evidence of air leak noted LUNGS: Equal air entry with no crackles, wheeze, rhonchi or dullness. CVS: Regular rate and rhythm, normal S1 and S2, no gallops, no murmurs, no rubs ABDOMEN: Soft, nontender. No hepatosplenomegaly, normal bowel sounds, no guarding or rigidity. EXTREMITIES: No clubbing, no edema, no cyanosis, 2+ pulses and upper and lower extremities. Right radial arterial graft site is covered with surgical dressing, SANTY drain is in place with small amount of sanguinous output, compressed and draining MUSCULOSKELETAL: Muscle strength and tone normal. SPINE: No scoliosis or deformity SKIN: No rashes CENTRAL NERVOUS SYSTEM: Awake and alert No focal deficits, tone is normal in all 4 extremities. - Labs CBC & Chem 7: 01/28/21 06:10 01/28/21 06:10 Labs: Abnormal Lab Results - Last 24 Hours (Table) 01/27/21 01/27/21 01/27/21 Range/Units 12:08 16:38 20:24 RBC (3.80-5.40) m/uL Hgb (11.4-16.0) gm/dL Hct (34.0-46.0) % Sodium (137-145) mmol/L BUN (7-17) mg/dL Creatinine (0.52-1.04) mg/dL Glucose (74-99) mg/dL POC Glucose (mg/dL) 185 H 159 H 143 H (75-99) mg/dL AST (14-36) U/L ALT (4-34) U/L Total Protein (6.3-8.2) g/dL Albumin (3.5-5.0) g/dL 01/28/21 01/28/21 01/28/21 Range/Units 06:10 06:10 06:55 RBC 2.83 L (3.80-5.40) m/uL Hgb 8.0 L (11.4-16.0) gm/dL Hct 24.6 L (34.0-46.0) % Sodium 135 L (137-145) mmol/L BUN 43 H (7-17) mg/dL Creatinine 1.47 H (0.52-1.04) mg/dL Glucose 139 H (74-99) mg/dL POC Glucose (mg/dL) 144 H (75-99) mg/dL AST 264 H (14-36) U/L ALT 140 H (4-34) U/L Total Protein 4.9 L (6.3-8.2) g/dL Albumin 2.8 L (3.5-5.0) g/dL Assessment and Plan Plan: Assessment: #1. Acute non-ST segment elevation myocardial infarction in a patient found to have left main disease, status post off-pump 3 vessel coronary artery bypass grafting, with a WESLEY to LAD, and right radial arterial graft, endovascular vein harvest of the saphenous venous graft from the left leg, and endovascular harvest of the right radial arterial graft, exclusion of the left atrial appendage, postoperative day #3 #2. Routine postoperative ventilator management, extubated on 01/25/2021, on postop day #0 #3. Acute blood loss anemia related to sternotomy and coronary artery bypass surgery, normal outcome of surgery #4. Hypertension #5. Hyperlipidemia #6. Former smoker, preop FEV1 was 84% of predicted #7. Previous history of bowel resection with colostomy and subsequent reversal #8. History of right-sided breast cancer with chemotherapy and right-sided mastectomy #9. Hyperthyroidism, on Methimazole #10. History of depression Plan: Patient is doing well Today's chest x-ray has been reviewed Small bilateral apical pneumothoraces Continue encouraging deep breathing and coughing Chest tubes have been removed Diuretics per CT surgery Encourage ambulation Continue breathing treatments Follow-up chest x-ray and labs in the morning I performed a history & physical examination of the patient and discussed their management with my nurse practitioner, Shelley Hathaway. I reviewed the nurse practitioner's note and agree with the documented findings and plan of care. Lung sounds are positive for diminished breath sounds throughout the lung hanson. The findings and the impression was discussed with the patient. I attest to the documentation by the nurse practitioner. Time with Patient: Less than 30
--- NOTE | 2021-01-28 11:55 | P.PN ---
Subjective Progress Note Date: 01/28/21 She was seen and examined sitting up in the bedside chair. He denies any pain to her right lower extremity. She states she has pain in her lower back and down her buttock on both sides. She is able to freely move her toes. She has been up and ambulating without any difficulty. She is status post cardiac catheterization and CABG. Objective - Vital Signs Vital signs: Vital Signs Temp 97.8 F 01/28/21 04:00 Pulse 73 01/28/21 07:56 Resp 30 H 01/28/21 07:00 BP 99/71 01/28/21 07:00 Pulse Ox 94 L 01/28/21 07:44 Intake & Output 01/27/21 01/28/21 01/28/21 18:59 06:59 18:59 Intake Total 276 396 143 Output Total 525 545 Balance -249 -149 143 Weight 74.4 kg Intake: IV 276 276 23 .9NS Pressure Bag 36 36 3 Lactated Ringers 1,000 ml 240 240 20 @ 20 mls/hr IV .Q24H [facility] Rx#:[id number] Oral 120 120 Output: Chest Tube Drainage 50 Right/Left Pleural 50 Drainage 125 285 Left Pleural Chest Tube 45 160 Right Pleural Chest Tube 80 125 Urine 350 260 Straight 125 Other: Voiding Method Indwelling Catheter Bedside Commode # Voids 0 0 ABP, PAP, CO, CI - Last Documented Arterial Blood Pressure 140/140 Pulmonary Artery Pressure 30/24 Cardiac Output 4.5 Cardiac Index 2.7 - Exam General appearance: The patient is alert, oriented, in no acute distress. HET: Head is normocephalic and atraumatic. Pupils are equal and reactive. Oropharynx is clear without lesions. Neck: Supple. Trachea midline. Extremities: Normal skin color and turgor. No cyanosis, rash, ulceration, clubbing, or edema. Palpable right posterior tibialis pulse, palpable left dorsalis pedis and posterior tibialis. Patient is able to freely move her bilateral lower extremities. Good capillary refill. JUDE hose stockings in place. Neurological: No focal deficits. Strength and sensation are grossly intact. - Labs CBC & Chem 7: 01/28/21 06:10 01/28/21 06:10 Labs: Abnormal Lab Results - Last 24 Hours (Table) 01/27/21 01/27/21 01/27/21 Range/Units 12:08 16:38 20:24 RBC (3.80-5.40) m/uL Hgb (11.4-16.0) gm/dL Hct (34.0-46.0) % Sodium (137-145) mmol/L BUN (7-17) mg/dL Creatinine (0.52-1.04) mg/dL Glucose (74-99) mg/dL POC Glucose (mg/dL) 185 H 159 H 143 H (75-99) mg/dL AST (14-36) U/L ALT (4-34) U/L Total Protein (6.3-8.2) g/dL Albumin (3.5-5.0) g/dL 01/28/21 01/28/21 01/28/21 Range/Units 06:10 06:10 06:55 RBC 2.83 L (3.80-5.40) m/uL Hgb 8.0 L (11.4-16.0) gm/dL Hct 24.6 L (34.0-46.0) % Sodium 135 L (137-145) mmol/L BUN 43 H (7-17) mg/dL Creatinine 1.47 H (0.52-1.04) mg/dL Glucose 139 H (74-99) mg/dL POC Glucose (mg/dL) 144 H (75-99) mg/dL AST 264 H (14-36) U/L ALT 140 H (4-34) U/L Total Protein 4.9 L (6.3-8.2) g/dL Albumin 2.8 L (3.5-5.0) g/dL Assessment and Plan Assessment: 1. Right lower extremity arterial insufficiency 2. Status post cardiac catheterization and CABG Plan: 1. Continue current treatment plan 2. Continue ICU management No acute indication for any vascular surgical intervention at this time. Patien t is recommended to follow up outpatient for further studies and evaluation. Patient verbalized understanding. Thank you for this consultation, we will sign off at this time. The impression and plan of care has been dictated as directed. Dr. Davis I performed a history and examination of this patient, discussed the same with the dictator. I agree with the dictator's note ,documented as a scribe. Any additional findings or plans will be noted.
[2021-01-28] MEDS: amLODIPine 5 MG TAB PO SCH (12:30)
[2021-01-28 16:08] LABS: Glucose,Whole Blood 107 mg/dL (75-99)
--- NOTE | 2021-01-28 16:36 | P.CONS ---
History of Present Illness - Chief Complaint Cardiac debility - History of Present Illness I had the opportunity to see patient for inpatient rehab consultation with regard to cardiac debility. She was admitted to [facility] January 21 with chest pain and EKG changes. Seen by pulmonary for ICU management. Seen by Dr. Flores who did perform three-vessel coronary bypass on January 25. Chest x-rays followed and demonstrated bilateral apical pneumothorax and a mild left lower lobe infiltrate. His started therapy. PT reports minimal assistance functional mobility and gait 20 feet with IV pole. OT reports moderate assistance for upper and lower dressing and bathing and minimal assistance for toileting and functional mobility/transfers. Previous functional history as elicited patient: Urvashi she was 25-year-old woman actually 75-year-old right-handed white female who is lives in a first-floor 3 floor home alone. Retired. Describes independent with own cooking, laundry, driving, sponge bath and gait without device. Chart indicates PCP Dr. Florentino although patient indicates it hyphenated name. Denies tobacco or alcohol. Review of Systems Review of systems: ENT: Denies sneezes or discharge. Eyes: Denies discharge or photophobia. Cardiac: Sternal discomfort. Pulmonary: At least mild shortness of breath. Breast: Denies discharge or lumps. Gastrointestinal: Denies nausea, emesis, constipation, diarrhea. Genitourinary: Denies discharge or frequency. Musculoskeletal: Denies muscle or bone aches. Neurologic: Generalized weakness. Endocrine: Denies shakes or sweats. Oncology: Denies cancers. Dermatologic: Denies rash, itching, pruritus. ALLERGY/immunology: Denies sneezes, rashes. Past Medical History Past Medical History: Cancer, Hyperlipidemia, Hypertension, Osteoarthritis (OA) Additional Past Medical History / Comment(s): Colostomy bag with removal History of Any Multi-Drug Resistant Organisms: None Reported Past Surgical History: Appendectomy, Bladder Surgery, Bowel Resection, Breast Surgery, Cholecystectomy, Hysterectomy, Orthopedic Surgery, Tubal Ligation Additional Past Surgical History / Comment(s): cataractsurgery x2 with lens implants, masectomy on right breast, bowel resection with colostomy and reversal, bladder suspension, left knee replacement, skin cancer removed from right ear Past Anesthesia/Blood Transfusion Reactions: No Reported Reaction Past Psychological History: Depression Smoking Status: Former smoker Past Alcohol Use History: None Reported Past Drug Use History: None Reported Additional Drug Use History / Comment(s): Quit smoking 40 years ago; vaccinated against Covid with [employer] vaccine, last dose June 2020 - Past Family History Father Family Medical History: AFIB, Congestive Heart Failure (CHF) Mother Family Medical History: Cancer Additional Family Medical History / Comment(s): breast cancer with mets Medications and Allergies Home Medications Medication Instructions Recorded Confirmed Type ALPRAZolam [Xanax] 1 mg PO DAILY@0800,0 01/21/21 01/21/21 History Amitriptyline HCl [Elavil] 20 mg PO DAILY 01/21/21 01/22/21 History Cholecalciferol [Vitamin D3 (25 50 mcg PO DAILY@79901/21/21 01/21/21 History Mcg = 1000 Iu)] Rosuvastatin [Crestor] 20 mg PO HS@219901/21/21 01/21/21 History Sertraline [Zoloft] 100 mg PO DAILY@79901/21/21 01/21/21 History amLODIPine [Norvasc] 5 mg PO HS@219901/21/21 01/21/21 History buPROPion [Wellbutrin] 75 mg PO DAILY@79901/21/21 01/21/21 History Allergies Allergy/AdvReac Type Severity Reaction Status Date / Time No Known Allergies Allergy Verified 01/21/21 16:53 Physical Exam Vitals: Vital Signs Temp Pulse Resp BP Pulse Ox 01/28/21 12:05 67 01/28/21 12:00 66 22 108/55 98 01/28/21 11:56 66 01/28/21 11:00 66 23 100/51 96 01/28/21 10:00 68 24 107/52 95 01/28/21 09:00 72 22 109/42 94 L 01/28/21 08:00 97.2 F L 73 23 112/53 95 01/28/21 07:56 73 01/28/21 07:44 71 94 L 01/28/21 07:00 74 30 H 99/71 94 L 01/28/21 06:00 73 24 92/78 92 L 01/28/21 05:00 73 24 107/64 92 L 01/28/21 04:00 97.8 F 73 25 H 98/45 93 L 01/28/21 03:00 68 27 H 96/45 97 01/28/21 02:00 68 27 H 93/47 95 01/28/21 01:00 67 23 100/44 95 01/28/21 00:00 97.9 F 70 23 127/50 93 L 01/27/21 23:00 84 20 101/50 95 01/27/21 22:00 76 28 H 101/50 92 L 01/27/21 21:00 78 18 95 01/27/21 20:00 97.4 F L 76 20 124/50 95 01/27/21 19:53 71 01/27/21 19:43 73 01/27/21 19:00 76 28 H 124/50 91 L 01/27/21 18:25 90 26 H 124/50 92 L 01/27/21 17:00 81 31 H 101/48 85 L Intake and Output 01/28/21 01/28/21 01/28/21 06:59 14:59 22:59 Intake Total 304 189 Output Total 470 80 Balance -166 109 Intake: IV 184 69 .9NS Pressure Bag 24 9 Lactated Ringers 1,000 ml 160 60 @ 20 mls/hr IV .Q24H [facility] Rx#:[id number] Oral 120 120 Output: Drainage 210 Left Pleural Chest Tube 120 Right Pleural Chest Tube 90 Urine 260 80 Straight 125 Other: Voiding Method Bedside Commode Bedside Commode # Voids 0 0 Weight 74.4 kg Skin: Atrophic, intact. General: Overweight build and comfortable appearance. Head: Normocephalic, atraumatic. Eyes: Symmetric. Pupils equal round. Ears: Symmetric. Hearing within normal limits. Mouth: Clear. Neck: Supple. Carotid without bruit. Cardiac: Regular rate and rhythm. No incision well approximated and healing. Lungs: Clear anteriorly and posteriorly. Abdomen: Soft active nontender. Extremities: Normal tone. Neurological: Mental status: Alert, cooperative, pleasant. Cranial nerves: Symmetric facial tone and trapezius. Motor: Active movement all 4 limbs but at best about antigravity. Sensation: Intact throughout. DTRs: Symmetric and equal throughout. Mobility: Patient sitting in Maggy chair and required physical assistance to transfer. Results CBC & Chem 7: 01/28/21 06:10 01/28/21 06:10 Labs: Abnormal Lab Results - Last 24 Hours (Table) 01/27/21 01/27/2121 Range/Units 16:38 20:24 06:10 RBC 2.83 L (3.80-5.40) m/uL Hgb 8.0 L (11.4-16.0) gm/dL Hct 24.6 L (34.0-46.0) % Sodium (137-145) mmol/L BUN (7-17) mg/dL Creatinine (0.52-1.04) mg/dL Glucose (74-99) mg/dL POC Glucose (mg/dL) 159 H 143 H (75-99) mg/dL AST (14-36) U/L ALT (4-34) U/L Total Protein (6.3-8.2) g/dL Albumin (3.5-5.0) g/dL 01/28/21 01/28/21 01/28/21 Range/Units 06:10 06:55 11:15 RBC (3.80-5.40) m/uL Hgb (11.4-16.0) gm/dL Hct (34.0-46.0) % Sodium 135 L (137-145) mmol/L BUN 43 H (7-17) mg/dL Creatinine 1.47 H (0.52-1.04) mg/dL Glucose 139 H (74-99) mg/dL POC Glucose (mg/dL) 144 H 138 H (75-99) mg/dL AST 264 H (14-36) U/L ALT 140 H (4-34) U/L Total Protein 4.9 L (6.3-8.2) g/dL Albumin 2.8 L (3.5-5.0) g/dL 01/28/21 Range/Units 16:06 RBC (3.80-5.40) m/uL Hgb (11.4-16.0) gm/dL Hct (34.0-46.0) % Sodium (137-145) mmol/L BUN (7-17) mg/dL Creatinine (0.52-1.04) mg/dL Glucose (74-99) mg/dL POC Glucose (mg/dL) 107 H (75-99) mg/dL AST (14-36) U/L ALT (4-34) U/L Total Protein (6.3-8.2) g/dL Albumin (3.5-5.0) g/dL Assessment and Plan (1) Acute non-ST elevation myocardial infarction (NSTEMI) Current Visit: Yes Status: Acute Code(s): I21.4 - NON-ST ELEVATION (NSTEMI) MYOCARDIAL INFARCTION SNOMED Code(s): 260174672 (2) CHF (congestive heart failure) Current Visit: Yes Status: Acute Code(s): I50.9 - HEART FAILURE, UNSPECIFIED SNOMED Code(s): 45855464 Plan: Impression: 1. Cardiac debility of recent IL and status post CABG 3 vessel. 2. CHF. 3. History of breast cancer. 4. Hypertension. 5. Discontinue. 6. Osteoarthritis. Comments and plan: At this time PT and OT are ongoing. Safety concerns noted. Have already begun to discussed possible inpatient rehab with patient and she seems agreeable. Currently would require and benefit from inpatient rehab.
[2021-01-28 20:07] LABS: Glucose,Whole Blood 139 mg/dL (75-99)
[2021-01-28] MEDS: MELATONIN 5 MG TABLET PO SCH (20:13)
[2021-01-28] MEDS: SENNOSIDES-DOCUSATE SODIUM 1 EACH TAB PO SCH (20:13)
--- NOTE | 2021-01-28 22:13 | P.PN ---
Subjective Progress Note Date: 01/28/21 Patient is a pleasant 75-year-old female came in with compensative chest pressure like sensation about a stress 10 in severity on the left side of the chest radiating to the left shoulder along with the diaphoresis or shortness of breath. Patient has a classic chest pain found to have some ST-T wave changes in the leads 1 before to V6. Patient also had mildly elevated troponin because of which patient underwent cardiac catheterization which showed critical left main disease along with the moderate disease in RCA and some disease in the left circumflex as well. Patient had left bundle branch block on the EKG no other EKGs to compare with. Patient is presently on heparin drip and being evaluated for coronary artery bypass grafting at this time. 01/23/2021 Patient is found to be hyperthyroid on this hospitalization patient was a started on methimazole further workup for for hyperthyroidism can be done as an outpatient after coronary artery disease his addressed. Patient is also found to have right lower extremity arterial insufficiency for which vascular surgery is recommending continuation of anticoagulation without any further intervention at this point of time. Patient is scheduled to undergo coronary artery bypass grafting in Thursday serum creatinine appears to have worsened a bit. Patient is also on IV calcium maría for blood pressure control. Patient is also receiving preoperative antibiotics. 01/24/2021 Patient is seen in follow-up continues to be closely monitored in the ICU. Plan is for myocardial revascularization surgery with Dr. Denys Flores tomorrow. Patient per nursing staff had an episode of pulmonary edema and was given Lasix with significant diuresis noted. Patient continues on nitro and heparin drip and multiple medical consultations following including flight steward, vascular surgery, pulmonary. Patient continues on methimazole and will need further outpatient follow-up with endocrine once stabilized. Patient will be nothing by mouth at midnight. White blood count is 5.5 with a hemoglobin of 10.7, sodium is 136 with a potassium of 4.0, BUN is 22 and creatinine is 1.28. Magnesium is found to be 2.1 today. Patient will be placed on insulin drip status post surgery per protocol and will continue to monitor. Discussed with vascular arroy[place] thuan and patient is currently on IV heparin and will likely be started on anticoagulation status post procedure and will follow-up outpatient for the right lower extremity vascularization. 01/25/2021 Patient is seen post surgery for three-vessel coronary artery bypass grafting, with WESLEY to the LAD, and right radial arterial graft to the OM, SVG to the MARJ, left lower extremity endoscopic vein harvesting, and left radial artery endoscopic harvesting and exclusion of the left atrial appendage. Patient continues to be closely monitored in the ICU and continues to be intubated and per nursing staff attempting to wean as tolerated although patient continues to be quite lethargic. Patient was bradycardic on multiple drips. Patient is on insulin drip and will continue per protocol until patient is awake and tolerating diet. Hemoglobin stable at 8.6 this morning, sodium was 137 with a potassium 4.2 and creatinine 1.02. ALT, AST minimally elevated and will monitor. Magnesium was 1.9. 01/26/2021 Patient is evaluated at the bedside in the intensive care unit post op day #2 three-vessel coronary artery bypass grafting with WESLEY to the LAD and right radial arterial graft to the OM, SVG to the MARJ, left lower extremity endoscopic vein harvesting, and left radial artery endoscopic harvesting and exclusion of the left atrial appendage. Patient is awake alert and oriented 3. Patient was extubated yesterday evening in the ICU, without difficulty. Patient states that she is having some difficulty swallowing, she states that her sore throat is sore and was given medication from the nursing staff. Patient states that cold foods are helping. Patient will continue blood sugar monitoring. Patient's hemoglobin A1c was 6.6, patient is a prediabetic, continue with glycemic contro l, patient is tolerating a minimal oral diet, prefers cold foods. Patient will be transitioned off of the insulin drip to a sliding scale NovoLog coverage. Patient's blood sugars have been consistently in the 120s. Will continue to monitor for any hyperglycemia. Patient continues to have an indwelling catheter. Patient states that she is belching, denies any flatus. Patient is using her incentive spirometer. Patient continues with right and left pleural chest tubes to wall suction. Patient's mediastinal chest tube was pulled today via cardiothoracic services. Dopamine and Cardizem have been discontinued via cardiothoracic services. Patient is normal sinus rhythm with a heart rate of 70s, bundle branch block. Continue to encourage ambulation, PT OT, continue to encourage incentive spirometer. 01/27/2021 Patient is evaluated today in the chair. Patient states that she was up ambulating with physical therapy and tolerated it well. Patient states that the Magic cup that was ordered by cardiothoracic services has helped tremendously. She states that her mouth still feels kind of sticky and has a hard time of thicker foods however she does have an appetite. She denies any nausea, vomiting. We'll continue to monitor blood sugars closely as patient continues to tolerate more oral intake. Will add a small dose of scheduled insulin with parameters patient continues to tolerate diet well. Patient was started on a small dose of IV Lasix from cardiothoracic services. Swollen and are outlined have been discontinued, continues on Cordis for continuous CVP monitoring. Chest tubes were left pleural remain for at least another 24 hours. Transfer to medical floor the next 24-48 hours, recommendations from cardiothoracic surgery. Continue to encourage ambulation, incentive spirometry use, wean oxygen as tolerated. Continue with current pain medication regimen. Patient continues to be in normal sinus rhythm, afebrile, blood pressure 117/50 heart rate 85. Rosita ent is 93% on 1 L nasal cannula. Replace electrolytes per protocol. 01/28/2021 Patient is seen and evaluated in follow-up continues to be in the ICU currently sitting up in the chair and working with physical therapy. Patient's blood sugars being closely monitored and continued on sliding scale along with pre- meal insulin and will continue to monitor. Per nursing staff patient is improving and awaiting possible transfer from the ICU. Patient is using bedside commode and has chest tubes and indwelling Christopher catheter removed. Patient continues to be quite weak and recommending subacute rehab. Plans are for possible inpatient rehab and awaiting updated PT/OT therapy notes. Daughter is in agreement with this. Heart hugger noted on exam. White blood count is 8.2 today and hemoglobin is 8.0 Review of systems: Constitutional: reports of fatigue, no reports of fever, or chills Cardiovascular: No reports of chest pain or palpitations, reports chest wall discomfort Respiratory: reports mild shortness of breath GI: No reports of nausea, vomiting, or diarrhea : No reports of dysuria or retention Neurovascular: reports generalized weakness All inpatient medications were reviewed and appropriate changes in these medications as dictated in the interval history and assessment and plan. PHYSICAL EXAMINATION: GENERAL: The patient is alert and oriented x3, not in any acute distress. Well developed, well nourished. HEENT: Pupils are round and equally reacting to light. EOMI. No scleral icterus. No conjunctival pallor. Normocephalic, atraumatic. No pharyngeal erythema. No thyromegaly. CARDIOVASCULAR: S1 and S2 present. No murmurs, rubs, or gallops. PULMONARY: Chest is clear to auscultation, no wheezing or crackles. ABDOMEN: Soft, nontender, non-distended, normoactive bowel sounds. No palpable organomegaly. MUSCULOSKELETAL: No joint swelling or deformity. EXTREMITIES: No cyanosis, clubbing, or pedal edema. NEUROLOGICAL: Gross neurological examination did not reveal any focal deficits. SKIN: No rashes. Assessment and plan: -Non-ST segment elevation myocardial infarction, acute: Patient is status post cardiac catheterization, patient underwent coronary artery bypass grafting with Dr. Denys Flores on 01/24/2021. -Hypertension -Hyperlipidemia -Left bundle-branch block unclear if it's a new lead prior left bundle-branch block -Hyperthyroidism: Primary hyperthyroidism continue with methimazole. Patient will need outpatient follow-up with endocrinology -Right lower extremity arterial insufficiency continuing on subcutaneous heparin -Mild acute renal failure probably secondary to contrast, prerenal azotemia -Full code -DVT prophylaxis: Currently on subcut heparin Plan: Patient will continue to be closely monitored in the ICU and underwent CABG with Dr. Denys Flores. Patient continues to be weak and awaiting PT/OT notes for possible inpatient rehab. Patient continued on sliding scale with pre-meal insulin and will continue. Repeat labs for the morning. Encouraged incentive spirometry at least 10 times every hours while awake. Encourage increased activity as tolerated. Will continue to monitor closely. Objective - Vital Signs Vital signs: Vital Signs Temp 97.8 F 01/28/21 04:00 Pulse 73 01/28/21 07:56 Resp 30 H 01/28/21 07:00 BP 99/71 01/28/21 07:00 Pulse Ox 94 L 01/28/21 07:44 Intake & Output 01/27/21 01/28/21 01/28/21 18:59 06:59 18:59 Intake Total 276 396 143 Output Total 525 545 Balance -249 -149 143 Weight 74.4 kg Intake: IV 276 276 23 .9NS Pressure Bag 36 36 3 Lactated Ringers 1,000 ml 240 240 20 @ 20 mls/hr IV .Q24H [facility] Rx#:[id number] Oral 120 120 Output: Chest Tube Drainage 50 Right/Left Pleural 50 Drainage 125 285 Left Pleural Chest Tube 45 160 Right Pleural Chest Tube 80 125 Urine 350 260 Straight 125 Other: Voiding Method Indwelling Catheter Bedside Commode # Voids 0 0 ABP, PAP, CO, CI - Last Documented Arterial Blood Pressure 140/140 Pulmonary Artery Pressure 30/24 Cardiac Output 4.5 Cardiac Index 2.7 - Labs CBC & Chem 7: 01/28/21 06:10 01/28/21 06:10 Labs: Abnormal Lab Results - Last 24 Hours (Table) 01/27/21 01/27/21 01/27/21 Range/Units 12:08 16:38 20:24 RBC (3.80-5.40) m/uL Hgb (11.4-16.0) gm/dL Hct (34.0-46.0) % Sodium (137-145) mmol/L BUN (7-17) mg/dL Creatinine (0.52-1.04) mg/dL Glucose (74-99) mg/dL POC Glucose (mg/dL) 185 H 159 H 143 H (75-99) mg/dL AST (14-36) U/L ALT (4-34) U/L Total Protein (6.3-8.2) g/dL Albumin (3.5-5.0) g/dL 01/28/21 01/28/21 01/28/21 Range/Units 06:10 06:10 06:55 RBC 2.83 L (3.80-5.40) m/uL Hgb 8.0 L (11.4-16.0) gm/dL Hct 24.6 L (34.0-46.0) % Sodium 135 L (137-145) mmol/L BUN 43 H (7-17) mg/dL Creatinine 1.47 H (0.52-1.04) mg/dL Glucose 139 H (74-99) mg/dL POC Glucose (mg/dL) 144 H (75-99) mg/dL AST 264 H (14-36) U/L ALT 140 H (4-34) U/L Total Protein 4.9 L (6.3-8.2) g/dL Albumin 2.8 L (3.5-5.0) g/dL
[2021-01-29 03:47] LABS: HCT 25.8 % (34.0-46.0); HGB 8.2 gm/dL (11.4-16.0); Hypochromasia Slight; MCH 27.9 pg (25.0-35.0); MCHC 31.6 g/dL (31.0-37.0); MCV 88.4 fL (80.0-100.0); Mean Platelet Volume 9.7; Platelet Count 217 k/uL (150-450); RBC 2.92 m/uL (3.80-5.40); RDW 13.3 % (11.5-15.5); WBC 8.9 k/uL (3.8-10.6)
[2021-01-29 03:57] LABS: Calcium 8.6 mg/dL (8.4-10.2); Potassium 5.2 mmol/L (3.5-5.1)
[2021-01-29] MEDS: INSULIN ASPART (NovoLOG) 100 UNIT/ML VIAL SQ SCH ×7 (06:35→20:40)
[2021-01-29 06:36] LABS: Glucose,Whole Blood 104 mg/dL (75-99)
[2021-01-29] MEDS: PANTOPRAZOLE 40 MG TABLET PO SCH (06:37)
--- NOTE | 2021-01-29 07:00 | XR ---
EXAMINATION TYPE: Two view chest x-ray. DATE OF EXAM: 01/29/2021 COMPARISON: 01/28/2021 TECHNIQUE: PA and lateral views submitted. HISTORY: Post cardiac surgery FINDINGS: Left-sided chest tube seen with certainty. There remains a small right apical pneumothorax stable fro m the prior exam no sizable pneumothorax on the left. Heart enlarged and there is postsurgical change s with atherosclerotic change of the aorta. Hypertrophic and degenerative change of the spine. Bilate ral infiltrate and pleural effusion IMPRESSION: 1. Bilateral pleural-parenchymal changes are stable with bilateral infiltrate and pleural effusion. S table right apical pneumothorax.
--- NOTE | 2021-01-29 07:21 | P.PN ---
Subjective Progress Note Date: 01/29/21 Principal diagnosis: Coronary artery disease, left main stenosis, non-ST segment elevation myocardial infarction This is a very pleasant 75-year-old female patient who has a history of previous colectomy with colostomy and subsequent reversal, hyperlipidemia, hypertension, osteoarthritis, right-sided breast cancer status post mastectomy, depression. Remote smoking history. She presented to the emergency room on 01/21/2021 with complaints of left-sided chest discomfort radiating down her left arm and into her back. Echocardiogram revealed a normal left ventricular systolic function with ejection fraction 55-60%. No significant valvular disease. She was taken to the cardiac catheterization lab on 01/22/2021 and found to have eccentric 60- 70% stenosis of the left main, 80-90% eccentric lesion in the proximal portion of the left circumflex. Moderate to severe disease involving the ostium of the right coronary artery and 60% stenosis in the mid RCA. Computed tomography scan of the chest revealed atherosclerotic vascular disease. Extensive coronary artery calcification. Pleural thickening and fluid at the lung bases. Minimal atelectasis left lung base. No significant aortic valve calcification. The plan is for coronary artery bypass surgery on 01/25/2021. She is seen today in consultation in the intensive care unit. She is currently awake and alert in no acute distress. No chest pain currently. No worsening shortness of breath cough or congestion. She is maintaining O2 saturation in the mid 90s on 2 L/m nasal cannula. White count 5.8. Hemoglobin 11.7. Platelets 197. Sodium 137. Potassium 4.1. Bicarb 20. Creatinine 1.26. Urinalysis clear. Coronavirus not detected. She remains on heparin drip, nitroglycerin drip at 10 mcg/m. On 01/24/2021 patient seen in follow-up in the intensive care unit. Last night patient had an episode of acute shortness of breath, and flash pulmonary edema. Chest x-ray was obtained showing increased interstitial density related to acute interstitial edema. She was given diuretics, and she has made 3.5 L of urine output in last 24 hours, and she is in -1.2 L net fluid balance. Currently breathing much easier, she is on 2 L of oxygen pulse ox is 95%, she is in sinus mechanism, denies any chest pain this morning, she remains on heparin infusion per weight-based protocol, and nitroglycerin currently at 10 mics per kilo per minute. No repeat chest x-ray was done today, lungs are clear bilaterally. No altered mentation. Patient has also been complaining of right lower extremity pain, and a vascular surgery is consulted for right lower extremity arterial insufficiency. She is currently on oral aspirin. Today's labs have been reviewed, blood vessel, is normal at 5.5, hemoglobin is 10.7, sodium is 136, there is electrolytes were within normal limits, BUN is 22, and creatinine is 1.28 On 01/25/2021 patient is seen in follow-up in the intensive care unit. She seen in the postoperative period, post off-pump three-vessel coronary artery bypass grafting, with WESLEY to the LAD, and right radial arterial graft to the OM, SVG to the MARJ, left lower extremity endoscopic vein harvesting, and left radial artery endoscopic harvesting and exclusion of the left atrial appendage. Patient is sedated, and intubated on mechanical ventilator, currently on assist- control mode of ventilation with a rate of 14, tidal volume is 400, FiO2 100% and PEEP of 5. Postoperative blood gas and chest x-ray is pending, patient is currently on Cardizem drip at 5 mg per hour, nitroglycerin is at 5 mics per kilo per minute, Diprivan and is at 20 mics per kilo per minute, and 0.9 normal saline to 50 ML per hour. EBL Intra-Op was 1 L, patient received crystalloids and 750 ML of 5% albumin Intra-Op. Patient has right and left and mediastinal chest tubes in place with small amount of sanguinous output in the Pleur-evac's. No air leak noted. Patient is in sinus mechanism. PA pressure 16/9, CVP 24, and CO/CI are 2.7 and 1.6 respectively. Patient is in sinus mechanism, liver she is bradycardic with a rate of 44. On 01/27/2021 patient seen in follow-up in the intensive care unit, today is po stoperative day #2, status post three-vessel off-pump coronary artery bypass grafting. Patient is awake and alert, in no acute distress, she is sitting up in a recliner, he is currently on 2 L of oxygen pulse ox is 93%, she is breathing comfortably, she appears weak, but appears to be in no respiratory distress, today's chest x-ray shows small right apical pneumothorax, and cardiomegaly. Patient's mediastinal chest tube was discontinued yesterday, she still has a right and left pleural chest tubes that are connected to the same Pleur-evac, and the output from both chest tubes is quite thin, and serous, and quite significant in amount, patient put out 960 mL over the last 24 hours. We'll catheter is in place, she is making urine in the order of 25-30 ML per hour, 0.9 normal saline is infusing at a rate of 10 ML per hour, dopamine drip has been discontinued yesterday, hemodynamically she is been stable. She is in sinus mechanism, denies any acute complaints, today's labs have been reviewed. Showing white blood cell count of 10.4, hemoglobin is 8.8, sodium is 136, potassium is 4.2, chloride is 107, CO2 is 21, BUN is 25, creatinine is 1. Hemodynamically she has been stable, her cardiac output is 4.2, and cardiac index is 2.5, [place] is supposed to be discontinued today. Patient has been ambulating with physical therapy, tolerates activity fairly well. On 01/28/2021 patient seen in follow-up in the intensive care unit, today is postoperative day #3 as post three-vessel off-pump coronary artery bypass grafting. Patient is resting in the recliner, mildly short of breath at rest and, in conversation, but appears to be in no acute distress, had 2 L of oxygen pulse ox is 95 percent. Hemodynamically she stable, she is afebrile. CT surgery is at the bedside, and patient had both pleural chest tubes removed this morning. This morning's chest x-ray showed a small right apical pneumothorax which is slightly diminished from yesterday's chest x-ray, and tiny left apical pneumothorax, mild developing left lower lobe infiltrate. Patient is working on incentive spirometer, she is achieving 500-750 on it today. Lung sounds reveal diminished breath sounds overall, with bibasilar crackles. Patient remains on IV Lasix 20 mg IV twice daily. She is in -398 mL net fluid balance over the last 24 hours, her incisions are clean dry and intact, no significant swelling involving the lower extremities. She is in sinus mechanism. She has been tolerating ambulation. The patient is seen today 01/29/2021 in follow-up in the intensive care unit. Postoperative day #4. She is currently doing quite well. She is down to nasal oxygen at 3 L/m maintaining O2 saturations in the low 90s. She's been afebrile. Hemodynamically stable. Chest x-ray reveals bilateral pleural parenchymal changes which are stable with bilateral infiltrate and pleural effusion. Stable right apical pneumothorax. She is still pulling approximately 500 ML's on the incentive spirometer. White count 8.9. Hemoglobin 8.2. Platelets 217. Sodium 134. Potassium 5.2. Creatinine 1.60. Glucose 134. She remains on bronchodilators. Heparin for DVT prophylaxis. She's been up ambulating with assistance. Objective - Vital Signs Vital signs: Vital Signs Temp 98.4 F 01/29/21 04:00 Pulse 71 01/29/21 04:00 Resp 20 01/28/21 23:51 BP 115/66 01/29/21 04:00 Pulse Ox 92 L 01/29/21 04:00 Intake & Output 01/28/21 01/29/21 01/29/21 18:59 06:59 18:59 Intake Total 189 120 Output Total 320 275 Balance -131 -155 Intake: IV 69 .9NS Pressure Bag 9 Lactated Ringers 1,000 ml 60 @ 20 mls/hr IV .Q24H [facility] Rx#:[id number] Oral 120 120 Output: Urine 320 275 Other: Voiding Method Bedside Commode Bedside Commode # Voids 0 1 ABP, PAP, CO, CI - Last Documented Arterial Blood Pressure 140/140 Pulmonary Artery Pressure 30/24 Cardiac Output 4.5 Cardiac Index 2.7 - Exam GENERAL EXAM: Awake and alert, pleasant, 75-year-old female, on 3 L of oxygen a pulse ox of 92% HEAD: Normocephalic/atraumatic. EYES: Normal reaction of pupils, equal size. Conjunctiva pink, sclera white. NOSE: Clear with pink turbinates. THROAT: No erythema or exudates. NECK: No masses, no JVD, no thyroid enlargement, no adenopathy. CHEST: No chest wall deformity. Symmetrical expansion. Midsternal incision remained dry and intact LUNGS: Equal air entry with faint crackles in the posterior bases CVS: Regular rate and rhythm, normal S1 and S2, no gallops, no murmurs, no rubs ABDOMEN: Soft, nontender. No hepatosplenomegaly, normal bowel sounds, no guarding or rigidity. EXTREMITIES: No clubbing, no edema, no cyanosis, 2+ pulses and upper and lower extremities. MUSCULOSKELETAL: Muscle strength and tone normal. SPINE: No scoliosis or deformity SKIN: No rashes CENTRAL NERVOUS SYSTEM: Awake and alert No focal deficits, tone is normal in all 4 extremities. - Labs CBC & Chem 7: 01/29/21 02:57 01/29/21 02:57 Labs: Abnormal Lab Results - Last 24 Hours (Table) 01/28/21 01/28/21 01/28/21 Range/Units 11:15 16:06 20:06 RBC (3.80-5.40) m/uL Hgb (11.4-16.0) gm/dL Hct (34.0-46.0) % Sodium (137-145) mmol/L Potassium (3.5-5.1) mmol/L Carbon Dioxide (22-30) mmol/L BUN (7-17) mg/dL Creatinine (0.52-1.04) mg/dL Glucose (74-99) mg/dL POC Glucose (mg/dL) 138 H 107 H 139 H (75-99) mg/dL 01/29/21 01/29/21 01/29/21 Range/Units 02:57 02:57 06:35 RBC 2.92 L (3.80-5.40) m/uL Hgb 8.2 L (11.4-16.0) gm/dL Hct 25.8 L (34.0-46.0) % Sodium 134 L (137-145) mmol/L Potassium 5.2 H (3.5-5.1) mmol/L Carbon Dioxide 20 L (22-30) mmol/L BUN 50 H (7-17) mg/dL Creatinine 1.60 H (0.52-1.04) mg/dL Glucose 134 H (74-99) mg/dL POC Glucose (mg/dL) 104 H (75-99) mg/dL Assessment and Plan Assessment: 1 Acute non-ST segment elevation myocardial infarction in a patient found to have left main disease, status post off-pump 3 vessel coronary artery bypass grafting, with a WESLEY to LAD, and right radial arterial graft, endovascular vein harvest of the saphenous venous graft from the left leg, and endovascular harvest of the right radial arterial graft, exclusion of the left atrial appendage, postoperative day #4 2 Routine postoperative ventilator management, extubated on 01/25/2021, on postop day #0 3 Acute blood loss anemia related to sternotomy and coronary artery bypass surgery, normal outcome of surgery 4 History of hypertension 5 Hyperlipidemia 6 Remote history of chronic tobacco dependence, FEV1 value 84% 7 Previous bowel resection with colostomy and subsequent reversal 8 History of right-sided breast cancer with chemotherapy and right-sided mastectomy 9 Hypothyroidism, found on this admission, initiated on Tapazole 10 History of depression Plan: The patient was seen and evaluated by Dr. Cole Chest x-ray and labs reviewed Continue bronchodilators Titrate down the FiO2 as tolerated Encourage increased use of the incentive spirometer Increase her activity as tolerated Discharge planning is in place We will continue to follow I, the cosigning physician, performed a history & physical examination of the patient. Lungs sounds faint crackles in the posterior bases. Maintaining good O2 saturations in the 90s on 3 L/m per nasal cannula. I discussed the assessment and plan of care with my nurse practitioner, Precious Schrader. I attest to the above note as dictated by her.
--- NOTE | 2021-01-29 07:28 | P.PN ---
Subjective Progress Note Date: 01/29/21 Principal diagnosis: Coronary artery disease with left main disease, NSTEMI this admission hyperthyroid discovered with preoperative labs as well as borderline diabetic. Previous medical history of hypertension, hyperlipidemia, breast cancer status post right mastectomy with chemotherapy approximately 25 years ago without radiation, colostomy for bowel rest status post reversal, previous tobacco dependence, remote history of pneumonia. Right lower extremity arterial insuffic iency after heart cathterization POD #4 off-pump CABG 3 with WESLEY to the LAD, left radial artery graft to the obtuse marginal coronary artery, reverse saphenous vein graft to the posterior lateral branch of the right coronary artery. Endovascular left thigh greater saphenous vein harvest. Endovascular left radial artery harvest. Exclusion of the left atrial appendage with a 35 mm Atriclip. Postoperative acute blood loss anemia, expected post cardiac surgery given hemodilution. The patient is currently sitting up in the recliner in the ICU in no acute distress. Denies pain or shortness of breath, has taken no pain medicine since yesterday morning. Remains in sinus rhythm and hemodynamically stable. Did ambulate a short distance yesterday with physical therapy, recommendations made for IPR, patient seen by Dr. Flores with confirmation that patient will benefit from IPR. All lines and tubes discontinued. Transfer orders were placed yesterday, no bed available on [address]. BUN/creat elevated, was on IV lasix BID, toradol stopped yesterday. No other new concerns. Objective - Vital Signs Vital signs: Vital Signs Temp 98.4 F 01/29/21 04:00 Pulse 71 01/29/21 04:00 Resp 20 01/28/21 23:51 BP 115/66 01/29/21 04:00 Pulse Ox 92 L 01/29/21 04:00 Intake & Output 01/28/21 01/29/21 01/29/21 18:59 06:59 18:59 Intake Total 189 120 Output Total 320 275 Balance -131 -155 Intake: IV 69 .9NS Pressure Bag 9 Lactated Ringers 1,000 ml 60 @ 20 mls/hr IV .Q24H [facility] Rx#:[id number] Oral 120 120 Output: Urine 320 275 Other: Voiding Method Bedside Commode Bedside Commode # Voids 0 1 ABP, PAP, CO, CI - Last Documented Arterial Blood Pressure 140/140 Pulmonary Artery Pressure 30/24 Cardiac Output 4.5 Cardiac Index 2.7 - Exam CONSTITUTIONAL: Appears comfortable, cooperative, no acute distress RESPIRATORY: Lungs sounds diminished bilaterally. Respirations even, nonlabored. Currently on 3 LPM NC with oxygen saturation 92%. Only able to achieve 500 mL on incentive spirometry. Strong productive cough with thick herrera sputum. CARDIOVASCULAR: S1, S2 present. Regular rate and rhythm, sinus rhythm on telemetry. Sternum stable. Palpable peripheral pulses bilaterally except right lower extremity, faint doppler PT pulse. No edema present. No calf pain or tenderness noted. Heart hugger in place with patient demonstrating appropriate use. Antiembolism stockings, SCDs present. GASTROINTESTINAL: Abdomen soft, nontender, nondistended. Active bowel sounds present 4 quadrants. Tolerating minimal diet. Positive small bowel movement per patient GENITOURINARY: Continues to void 240-275 mL at a time, output 595 mL in the last 24 hours INTEGUMENTARY: Skin is warm and dry with evidence of good perfusion. Anterior chest incision well approximated and covered with dry intact dressing. Left lower extremity EVH site well approximated without redness or drainage. 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 Right lower extremity cool to touch NEUROLOGIC: Cranial nerves II through XII intact MUSKULOSKELETAL: Able to move all extremities, strength equal bilaterally, gait normal but weak requiring assistance PSYCHIATRIC: Alert and oriented to person place and time, appropriate affect, intact judgment and insight - Allied health notes Allied health notes reviewed: nursing - Labs CBC & Chem 7: 01/29/21 02:57 01/29/21 02:57 Labs: Abnormal Lab Results - Last 24 Hours (Table) 01/28/21 01/28/21 01/28/21 Range/Units 11:15 16:06 20:06 RBC (3.80-5.40) m/uL Hgb (11.4-16.0) gm/dL Hct (34.0-46.0) % Sodium (137-145) mmol/L Potassium (3.5-5.1) mmol/L Carbon Dioxide (22-30) mmol/L BUN (7-17) mg/dL Creatinine (0.52-1.04) mg/dL Glucose (74-99) mg/dL POC Glucose (mg/dL) 138 H 107 H 139 H (75-99) mg/dL 01/29/21 01/29/21 01/29/21 Range/Units 02:57 02:57 06:35 RBC 2.92 L (3.80-5.40) m/uL Hgb 8.2 L (11.4-16.0) gm/dL Hct 25.8 L (34.0-46.0) % Sodium 134 L (137-145) mmol/L Potassium 5.2 H (3.5-5.1) mmol/L Carbon Dioxide 20 L (22-30) mmol/L BUN 50 H (7-17) mg/dL Creatinine 1.60 H (0.52-1.04) mg/dL Glucose 134 H (74-99) mg/dL POC Glucose (mg/dL) 104 H (75-99) mg/dL - Imaging and Cardiology Chest x-ray: report reviewed, image reviewed Assessment and Plan Assessment: 1. Coronary artery disease with left main disease, NSTEMI this admission, S/P 3V off pump cabg 2. History of hypertension 3. Hyperlipidemia, treated, cholesterol 96, LDL 40 4. Breast cancer status post right mastectomy with chemotherapy approximately 25 years ago 5. Colostomy for bowel rest status post reversal 6. Previous tobacco dependence, pre-op FEV1 84% of predicted 7. Remote history of pneumonia 8. Hyperthyroid (discovered on pre-op labs), TSH <0.015, FT4 5.21 9. Borderline diabetes, pre-op A1c 6.6% 10. Right lower extremity arterial insufficiency after heart cathterization 11. Postoperative acute blood loss anemia, expected 12. Transaminitis 13. Acute kidney injury, likely from hypoperfusion combined with medication Plan: 1. Continue aspirin, statin, plavix, beta maría. Will increase beta maría as tolerated 2. Continue norvasc for radial artery spasm prophylaxis, do not DC CCB without discussing with cardiac surgery 3. Wean oxygen as tolerated. Encourage incentive spirometry 10 times every hour while awake. Bronchodilators per pulmonology 4. Increase activity, ambulate as tolerated. PT/OT/cardiac rehab following. 5. Will monitor daily labs, CXR. Electrolyte replacement per protocol. No lasix today. Will give 1 dose kayexalate 6. GI/DVT prophylaxis 7. Pain control with current medication regimen, toradol dc'd due to increased creatinine, narcotics dc'd 8. Insulin management per primary care service. A1c suggests pre-diabetes, appreciate internal medicine recommendations for management at discharge 9. Encourage oral intake 10. Right lower extremity arterial insufficiency management per Dr. Christopher, to be monitored outpatient 11. Continue tapazole for hyperthyroid. Will need endocrine follow up at discharge 12. Transfer orders placed yesterday [facility]. May transfer when bed available 13. Discharge planning in place, anticipate discharge to [facility] in the next 24-48 hours for close physician monitoring, daily labs and CXR, aggressive physical strength training 14. More recommendations to follow Time with Patient: Greater than 30
[2021-01-29] MEDS: IPRATROPIUM-ALBUTEROL 3 ML NEB INHALATION SCH ×4 (08:05→19:43)
[2021-01-29] MEDS: ASPIRIN 325 MG TAB PO SCH (08:26)
[2021-01-29] MEDS: CLOPIDOGREL 75 MG TAB PO SCH (08:26)
[2021-01-29] MEDS: METOPROLOL TARTRATE 12.5 MG TAB PO SCH ×2 (08:26→20:40)
[2021-01-29] MEDS: HEPARIN SODIUM,PORCINE/PF 5,000 UNIT/0.5 ML SYRINGE SQ SCH ×2 (08:26→16:24)
[2021-01-29] MEDS: SERTRALINE 100 MG TAB PO SCH (08:26)
[2021-01-29] MEDS: AMITRIPTYLINE HCL 10 MG TAB PO SCH (08:26)
[2021-01-29] MEDS: ATORVASTATIN 40 MG TAB PO SCH (08:26)
[2021-01-29] MEDS: methIMAzole 5 MG TAB PO SCH (08:27)
[2021-01-29] MEDS: buPROPion 75 MG TAB PO SCH (08:30)
[2021-01-29] MEDS: SODIUM POLYSTYRENE SULFONATE 15 GM/60 ML BOTTLE PO STA ×2 (08:34→08:39)
[2021-01-29] MEDS: MAG HYDROX/AL HYDROX/SIMETH 30 ML, LIDOCAINE VISCOUS 30 ML, NYSTATIN 100,000 UNIT/ML SU... PO SCH ×9 (08:35→20:40)
--- NOTE | 2021-01-29 09:22 | PN ---
PROGRESS NOTE This lady underwent aortocoronary bypass surgery. She is doing better, hemodynamically stable, not on pressors. Vitals are stable. However, her incentive spirometry is suboptimal. She is going to be going to inpatient rehab at [facility]. Vitals are stable. JVD 1 cm. No carotid bruit. S1-S2 heard normally. Short systolic murmur noted. Lungs reveal diminished air entry bilaterally. Abdomen is soft. Lower extremities reveal diminished pulses. Central nervous system grossly no focal deficits. Plan is to continue incentive spirometry, pulmonary toilet, possible transfer to [facility] for inpatient rehab tomorrow. MMODL / IJN: [id number] /
[2021-01-29 12:15] LABS: Glucose,Whole Blood 109 mg/dL (75-99)
[2021-01-29] MEDS: amLODIPine 5 MG TAB PO SCH (13:13)
--- NOTE | 2021-01-29 14:33 | P.PN ---
Subjective Progress Note Date: 01/29/21 Patient is a pleasant 75-year-old female came in with compensative chest pressure like sensation about a stress 10 in severity on the left side of the chest radiating to the left shoulder along with the diaphoresis or shortness of breath. Patient has a classic chest pain found to have some ST-T wave changes in the leads 1 before to V6. Patient also had mildly elevated troponin because of which patient underwent cardiac catheterization which showed critical left main disease along with the moderate disease in RCA and some disease in the left circumflex as well. Patient had left bundle branch block on the EKG no other EKGs to compare with. Patient is presently on heparin drip and being evaluated for coronary artery bypass grafting at this time. 01/23/2021 Patient is found to be hyperthyroid on this hospitalization patient was a started on methimazole further workup for for hyperthyroidism can be done as an outpatient after coronary artery disease his addressed. Patient is also found to have right lower extremity arterial insufficiency for which vascular surgery is recommending continuation of anticoagulation without any further intervention at this point of time. Patient is scheduled to undergo coronary artery bypass grafting in Thursday serum creatinine appears to have worsened a bit. Patient is also on IV calcium maría for blood pressure control. Patient is also receiving preoperative antibiotics. 01/24/2021 Patient is seen in follow-up continues to be closely monitored in the ICU. Plan is for myocardial revascularization surgery with Dr. Denys Flores tomorrow. Patient per nursing staff had an episode of pulmonary edema and was given Lasix with significant diuresis noted. Patient continues on nitro and heparin drip and multiple medical consultations following including feed handler, vascular surgery, pulmonary. Patient continues on methimazole and will need further outpatient follow-up with endocrine once stabilized. Patient will be nothing by mouth at midnight. White blood count is 5.5 with a hemoglobin of 10.7, sodium is 136 with a potassium of 4.0, BUN is 22 and creatinine is 1.28. Magnesium is found to be 2.1 today. Patient will be placed on insulin drip status post surgery per protocol and will continue to monitor. Discussed with vascular arroyo thuan and patient is currently on IV heparin and will likely be started on anticoagulation status post procedure and will follow-up outpatient for the right lower extremity vascularization. 01/25/2021 Patient is seen post surgery for three-vessel coronary artery bypass grafting, with WESLEY to the LAD, and right radial arterial graft to the OM, SVG to the MARJ, left lower extremity endoscopic vein harvesting, and left radial artery endoscopic harvesting and exclusion of the left atrial appendage. Patient continues to be closely monitored in the ICU and continues to be intubated and per nursing staff attempting to wean as tolerated although patient continues to be quite lethargic. Patient was bradycardic on multiple drips. Patient is on insulin drip and will continue per protocol until patient is awake and tolerating diet. Hemoglobin stable at 8.6 this morning, sodium was 137 with a potassium 4.2 and creatinine 1.02. ALT, AST minimally elevated and will monitor. Magnesium was 1.9. 01/26/2021 Patient is evaluated at the bedside in the intensive care unit post op day #2 three-vessel coronary artery bypass grafting with WESLEY to the LAD and right radial arterial graft to the OM, SVG to the MARJ, left lower extremity endoscopic vein harvesting, and left radial artery endoscopic harvesting and exclusion of the left atrial appendage. Patient is awake alert and oriented 3. Patient was extubated yesterday evening in the ICU, without difficulty. Patient states that she is having some difficulty swallowing, she states that her sore throat is sore and was given medication from the nursing staff. Patient states that cold foods are helping. Patient will continue blood sugar monitoring. Patient's hemoglobin A1c was 6.6, patient is a prediabetic, continue with glycemic contro l, patient is tolerating a minimal oral diet, prefers cold foods. Patient will be transitioned off of the insulin drip to a sliding scale NovoLog coverage. Patient's blood sugars have been consistently in the 120s. Will continue to monitor for any hyperglycemia. Patient continues to have an indwelling catheter. Patient states that she is belching, denies any flatus. Patient is using her incentive spirometer. Patient continues with right and left pleural chest tubes to wall suction. Patient's mediastinal chest tube was pulled today via cardiothoracic services. Dopamine and Cardizem have been discontinued via cardiothoracic services. Patient is normal sinus rhythm with a heart rate of 70s, bundle branch block. Continue to encourage ambulation, PT OT, continue to encourage incentive spirometer. 01/27/2021 Patient is evaluated today in the chair. Patient states that she was up ambulating with physical therapy and tolerated it well. Patient states that the Magic cup that was ordered by cardiothoracic services has helped tremendously. She states that her mouth still feels kind of sticky and has a hard time of thicker foods however she does have an appetite. She denies any nausea, vomiting. We'll continue to monitor blood sugars closely as patient continues to tolerate more oral intake. Will add a small dose of scheduled insulin with parameters patient continues to tolerate diet well. Patient was started on a small dose of IV Lasix from cardiothoracic services. Swollen and are outlined have been discontinued, continues on Cordis for continuous CVP monitoring. Chest tubes were left pleural remain for at least another 24 hours. Transfer to medical floor the next 24-48 hours, recommendations from cardiothoracic surgery. Continue to encourage ambulation, incentive spirometry use, wean oxygen as tolerated. Continue with current pain medication regimen. Patient continues to be in normal sinus rhythm, afebrile, blood pressure 117/50 heart rate 85. Rosita ent is 93% on 1 L nasal cannula. Replace electrolytes per protocol. 01/28/2021 Patient is seen and evaluated in follow-up continues to be in the ICU currently sitting up in the chair and working with physical therapy. Patient's blood sugars being closely monitored and continued on sliding scale along with pre- meal insulin and will continue to monitor. Per nursing staff patient is improving and awaiting possible transfer from the ICU. Patient is using bedside commode and has chest tubes and indwelling Christopher catheter removed. Patient continues to be quite weak and recommending subacute rehab. Plans are for possible inpatient rehab and awaiting updated PT/OT therapy notes. Daughter is in agreement with this. Heart hugger noted on exam. White blood count is 8.2 today and hemoglobin is 8.0 01/29/2021 Issue is seen in follow-up currently sitting up in the chair with no acute overnight issues noted. Patient's creatinine slightly elevated and was receiving a few doses of IV Lasix that have been discontinued and creatinine is on 0.6, BUN is 50, sodium is 134 with a potassium of 5.2. Hemoglobin 8.2 and white blood count within normal limits at 8.9. Patient's blood sugars have been within normal limits not requiring insulin and will continue with sliding scale as needed with Accu-Cheks before meals and at bedtime. She continues on 2-3 L via nasal cannula and oxygen saturation is 100%. Patient is afebrile. Encourage the patient to continue with incentive spirometer. Patient reports to a lot of gas and feeling she has to have a bowel movement as this will be her first one since surgery. Patient is urinating with no difficulties. Possible [facility] inpatient rehab in the morning. Review of systems: Constitutional: No report of fatigue, no reports of fever, or chills Cardiovascular: No reports of chest pain or palpitations, reports chest wall discomfort Respiratory: reports mild shortness of breath GI: No reports of nausea, vomiting, or diarrhea, reports a lot of gas and possible bowel movement she states : No reports of dysuria or retention Neurovascular: reports generalized weakness All inpatient medications were reviewed and appropriate changes in these medications as dictated in the interval history and assessment and plan. PHYSICAL EXAMINATION: GENERAL: The patient is alert and oriented x3, not in any acute distress. Well developed, well nourished. HEENT: Pupils are round and equally reacting to light. EOMI. No scleral icterus. No conjunctival pallor. Normocephalic, atraumatic. No pharyngeal erythema. No thyromegaly. CARDIOVASCULAR: S1 and S2 present. No murmurs, rubs, or gallops. PULMONARY: Diminished Breath sounds bilaterally, no wheezing or crackles. ABDOMEN: Soft, nontender, non-distended, normoactive bowel sounds. No palpable organomegaly. MUSCULOSKELETAL: No joint swelling or deformity. EXTREMITIES: No cyanosis, clubbing, or pedal edema. NEUROLOGICAL: Gross neurological examination did not reveal any focal deficits. SKIN: No rashes. Assessment and plan: -Non-ST segment elevation myocardial infarction, acute: Patient is status post cardiac catheterization, patient underwent coronary artery bypass grafting with Dr. Denys Flores on 01/24/2021. -Hypertension -Hyperlipidemia -Left bundle-branch block unclear if it's a new lead prior left bundle-branch block -Hyperthyroidism: Primary hyperthyroidism continue with methimazole. Patient will need outpatient follow-up with endocrinology -Right lower extremity arterial insufficiency continuing on subcutaneous heparin -Mild acute renal failure probably secondary to contrast, prerenal azotemia -Full code -DVT prophylaxis: Currently on subcut heparin Plan: Patient will continue to be closely monitored in the ICU and underwent CABG with Dr. Denys Flores. Patient continues to be weak and patient will be going to [facility] for inpatient rehab. Patient continued on sliding scale and not requiring any insulin and will discontinue pre-meal insulin and will continue. Encouraged incentive spirometry at least 10 times every hours while awake. Encourage increased activity as tolerated. Will continue to follow along closely. Anticipate discharge in 24 hours to [facility] rehab. Objective - Vital Signs Vital signs: Vital Signs Temp 97.8 F 01/29/21 08:00 Pulse 75 01/29/21 08:17 Resp 20 01/28/21 23:51 BP 118/47 01/29/21 08:00 Pulse Ox 93 L 01/29/21 08:00 Intake & Output 01/28/21 01/29/21 01/29/21 18:59 06:59 18:59 Intake Total 189 120 150 Output Total 320 275 Balance -131 -155 150 Weight 74.4 kg Intake: IV 69 .9NS Pressure Bag 9 Lactated Ringers 1,000 ml 60 @ 20 mls/hr IV .Q24H JAZ Rx#:[id number] Oral 120 120 150 Output: Urine 320 275 Other: Voiding Method Bedside Commode Bedside Commode Bedside Commode # Voids 0 1 ABP, PAP, CO, CI - Last Documented Arterial Blood Pressure 140/140 Pulmonary Artery Pressure 30/24 Cardiac Output 4.5 Cardiac Index 2.7 - Labs CBC & Chem 7: 01/29/21 02:57 01/29/21 02:57 Labs: Abnormal Lab Results - Last 24 Hours (Table) 01/28/21 01/28/21 01/28/21 Range/Units 11:15 16:06 20:06 RBC (3.80-5.40) m/uL Hgb (11.4-16.0) gm/dL Hct (34.0-46.0) % Sodium (137-145) mmol/L Potassium (3.5-5.1) mmol/L Carbon Dioxide (22-30) mmol/L BUN (7-17) mg/dL Creatinine (0.52-1.04) mg/dL Glucose (74-99) mg/dL POC Glucose (mg/dL) 138 H 107 H 139 H (75-99) mg/dL 01/29/21 01/29/21 01/29/21 Range/Units 02:57 02:57 06:35 RBC 2.92 L (3.80-5.40) m/uL Hgb 8.2 L (11.4-16.0) gm/dL Hct 25.8 L (34.0-46.0) % Sodium 134 L (137-145) mmol/L Potassium 5.2 H (3.5-5.1) mmol/L Carbon Dioxide 20 L (22-30) mmol/L BUN 50 H (7-17) mg/dL Creatinine 1.60 H (0.52-1.04) mg/dL Glucose 134 H (74-99) mg/dL POC Glucose (mg/dL) 104 H (75-99) mg/dL
[2021-01-29 16:47] LABS: Glucose,Whole Blood 112 mg/dL (75-99)
[2021-01-29] MEDS: ALPRAZolam 0.25 MG TAB PO PRN (19:03)
[2021-01-29 20:37] LABS: Glucose,Whole Blood 135 mg/dL (75-99)
[2021-01-29] MEDS: MELATONIN 5 MG TABLET PO SCH (20:40)
[2021-01-29] MEDS: SENNOSIDES-DOCUSATE SODIUM 1 EACH TAB PO SCH (20:40)
[2021-01-30] MEDS: ALPRAZolam 0.25 MG TAB PO PRN (00:11)
[2021-01-30] MEDS: HEPARIN SODIUM,PORCINE/PF 5,000 UNIT/0.5 ML SYRINGE SQ SCH ×2 (00:12→08:51)
[2021-01-30 04:03] LABS: HCT 24.8 % (34.0-46.0); Hypochromasia Slight; MCH 28.3 pg (25.0-35.0); MCHC 32.2 g/dL (31.0-37.0); MCV 87.9 fL (80.0-100.0); Mean Platelet Volume 9.3; Platelet Count 249 k/uL (150-450); RBC 2.82 m/uL (3.80-5.40); RDW 13.7 % (11.5-15.5); WBC 9.6 k/uL (3.8-10.6)
[2021-01-30 04:15] LABS: Calcium 8.4 mg/dL (8.4-10.2); Potassium 4.6 mmol/L (3.5-5.1); Total Bilirubin 0.7 mg/dL (0.2-1.3); Total Protein 5.4 g/dL (6.3-8.2)
[2021-01-30 06:51] LABS: Glucose,Whole Blood 94 mg/dL (75-99)
[2021-01-30] MEDS: INSULIN ASPART (NovoLOG) 100 UNIT/ML VIAL SQ SCH ×4 (06:52→12:35)
[2021-01-30] MEDS: PANTOPRAZOLE 40 MG TABLET PO SCH (07:09)
--- NOTE | 2021-01-30 07:59 | P.PN ---
Subjective Progress Note Date: 01/30/21 Principal diagnosis: Coronary artery disease with left main disease, NSTEMI this admission hyperthyroid discovered with preoperative labs as well as borderline diabetic. Previous medical history of hypertension, hyperlipidemia, breast cancer status post right mastectomy with chemotherapy approximately 25 years ago without radiation, colostomy for bowel rest status post reversal, previous tobacco dependence, remote history of pneumonia. Right lower extremity arterial insuffic iency after heart cathterization POD #5 off-pump CABG 3 with WESLEY to the LAD, left radial artery graft to the obtuse marginal coronary artery, reverse saphenous vein graft to the posterior lateral branch of the right coronary artery. Endovascular left thigh greater saphenous vein harvest. Endovascular left radial artery harvest. Exclusion of the left atrial appendage with a 35 mm Atriclip. Postoperative acute blood loss anemia, expected post cardiac surgery given hemodilution. The patient is currently sitting up in the recliner in the ICU in no acute distress. Denies pain or shortness of breath, has taken no pain medicine since yesterday morning. Remains in sinus rhythm and hemodynamically stable. Continues to ambulate short distances with nursing/therapy, received first postop shower yesterday which she tolerated well. Anticipate discharge to [facility] today if bed available. No other new concerns. Objective - Vital Signs Vital signs: Vital Signs Temp 97.8 F 01/30/21 04:00 Pulse 67 01/30/21 04:00 Resp 25 H 01/30/21 04:00 BP 120/58 01/30/21 04:00 Pulse Ox 95 01/30/21 04:00 Intake & Output 01/29/21 01/30/21 01/30/21 18:59 06:59 18:59 Intake Total 150 240 Output Total 480 300 Balance -330 -60 Weight 74.4 kg 74.2 kg Intake: Oral 150 240 Output: Drainage 55 Left Pleural Chest Tube 40 Right Pleural Chest Tube 15 Urine 425 300 Other: Voiding Method Bedside Commode Bedside Commode ABP, PAP, CO, CI - Last Documented Arterial Blood Pressure 140/140 Pulmonary Artery Pressure 30/24 Cardiac Output 4.5 Cardiac Index 2.7 - Exam CONSTITUTIONAL: Appears comfortable, cooperative, no acute distress RESPIRATORY: Lungs sounds diminished bilaterally. Respirations even, nonlabored. Currently on 2 LPM NC with oxygen saturation 95%. Still only able to achieve 500 mL on incentive spirometry. Strong cough CARDIOVASCULAR: S1, S2 present. Regular rate and rhythm, sinus rhythm on telemetry. Sternum stable. Palpable peripheral pulses bilaterally except right lower extremity, faint doppler PT pulse. No edema present. No calf pain or tenderness noted. Heart hugger in place with patient demonstrating appropriate use. Antiembolism stockings, SCDs present. GASTROINTESTINAL: Abdomen soft, nontender, nondistended. Active bowel sounds present 4 quadrants. Tolerating minimal diet. Positive small bowel movement yesterday morning per patient GENITOURINARY: Continues to void 225-300 mL at a time INTEGUMENTARY: Skin is warm and dry with evidence of good perfusion. Anterior chest incision well approximated and covered with dry intact dressing. Left lower extremity EVH site well approximated without redness or drainage. Left radial artery harvest sight without redness or drainage, patient able to wiggle all fingers and leaf tinner appropriately. Right lower extremity cool to touch NEUROLOGIC: Cranial nerves II through XII intact MUSKULOSKELETAL: Able to move all extremities, strength equal bilaterally, gait normal but weak requiring assistance PSYCHIATRIC: Alert and oriented to person place and time, appropriate affect, intact judgment and insight - Allied health notes Allied health notes reviewed: nursing - Labs CBC & Chem 7: 01/30/21 03:40 01/30/21 03:40 Labs: Abnormal Lab Results - Last 24 Hours (Table) 01/29/21 01/29/21 01/29/21 Range/Units 12:14 16:45 20:35 RBC (3.80-5.40) m/uL Hgb (11.4-16.0) gm/dL Hct (34.0-46.0) % Sodium (137-145) mmol/L BUN (7-17) mg/dL Creatinine (0.52-1.04) mg/dL Glucose (74-99) mg/dL POC Glucose (mg/dL) 109 H 112 H 135 H (75-99) mg/dL AST (14-36) U/L ALT (4-34) U/L Alkaline Phosphatase (38-126) U/L Total Protein (6.3-8.2) g/dL Albumin (3.5-5.0) g/dL 01/30/21 01/30/21 Range/Units 03:40 03:40 RBC 2.82 L (3.80-5.40) m/uL Hgb 8.0 L (11.4-16.0) gm/dL Hct 24.8 L (34.0-46.0) % Sodium 134 L (137-145) mmol/L BUN 52 H (7-17) mg/dL Creatinine 1.43 H (0.52-1.04) mg/dL Glucose 123 H (74-99) mg/dL POC Glucose (mg/dL) (75-99) mg/dL AST 153 H (14-36) U/L ALT 143 H (4-34) U/L Alkaline Phosphatase 187 H (38-126) U/L Total Protein 5.4 L (6.3-8.2) g/dL Albumin 3.0 L (3.5-5.0) g/dL - Imaging and Cardiology Chest x-ray: image reviewed Assessment and Plan Assessment: 1. Coronary artery disease with left main disease, NSTEMI this admission, S/P 3V off pump cabg 2. History of hypertension 3. Hyperlipidemia, treated, cholesterol 96, LDL 40 4. Breast cancer status post right mastectomy with chemotherapy approximately 25 years ago 5. Colostomy for bowel rest status post reversal 6. Previous tobacco dependence, pre-op FEV1 84% of predicted 7. Remote history of pneumonia 8. Hyperthyroid (discovered on pre-op labs), TSH <0.015, FT4 5.21 9. Borderline diabetes, pre-op A1c 6.6% 10. Right lower extremity arterial insufficiency after heart cathterization 11. Postoperative acute blood loss anemia, expected 12. Transaminitis 13. Acute kidney injury, likely from hypoperfusion combined with medication Plan: 1. Continue aspirin, statin, plavix, beta maría. 2. Continue norvasc for radial artery spasm prophylaxis, do not DC CCB without discussing with cardiac surgery 3. Wean oxygen as tolerated. Encourage incentive spirometry 10 times every hour while awake. Bronchodilators per pulmonology 4. Increase activity, ambulate as tolerated. PT/OT/cardiac rehab following. 5. Will monitor daily labs, CXR. Electrolyte replacement per protocol. 6. GI/DVT prophylaxis 7. Pain control with current medication regimen 8. Insulin management per primary care service. A1c suggests pre-diabetes, appreciate internal medicine recommendations for management at discharge 9. Encourage oral intake 10. Right lower extremity arterial insufficiency management per Dr. Christopher, to be monitored outpatient 11. Continue tapazole for hyperthyroid. Will need endocrine follow up at discharge 12. Discharge planning in place, anticipate discharge to [facility] today if bed avai lable for close physician monitoring, daily labs and CXR, aggressive physical strength training 13. More recommendations to follow Time with Patient: Greater than 30
[2021-01-30] MEDS ORDERED: ALPRAZolam 1 MG TAB PO SCH (08:00)
[2021-01-30 08:27] VITALS: RESP 20
[2021-01-30] MEDS: IPRATROPIUM-ALBUTEROL 3 ML NEB INHALATION SCH ×3 (08:37→15:33)
[2021-01-30] MEDS: ATORVASTATIN 40 MG TAB PO SCH (08:50)
[2021-01-30] MEDS: CLOPIDOGREL 75 MG TAB PO SCH (08:51)
[2021-01-30] MEDS: METOPROLOL TARTRATE 12.5 MG TAB PO SCH (08:51)
[2021-01-30] MEDS: ASPIRIN 325 MG TAB PO SCH (08:51)
[2021-01-30] MEDS: AMITRIPTYLINE HCL 10 MG TAB PO SCH (08:57)
[2021-01-30] MEDS: buPROPion 75 MG TAB PO SCH (08:57)
[2021-01-30] MEDS: methIMAzole 5 MG TAB PO SCH (08:57)
[2021-01-30] MEDS: SERTRALINE 100 MG TAB PO SCH (08:58)
[2021-01-30] MEDS ORDERED: MAGNESIUM HYDROXIDE 2,400 MG/10 ML CUP PO SCH (09:00)
--- NOTE | 2021-01-30 09:42 | XR ---
EXAMINATION TYPE: XR chest 2V DATE OF EXAM: 01/30/2021 COMPARISON: 01/29/2021 INDICATION: Post cardiac surgery TECHNIQUE: Single frontal view of the chest is obtained. FINDINGS: The heart size is moderately prominent. The pulmonary vasculature is normal. There is an area of opacification along the lateral left chest wall. Small left pleural effusion is p resent. EKG leads overlie the chest. IMPRESSION: 1. Interval development of a opacification lateral chest wall. Follow-up is recommended. 2. Small left pleural effusion
--- NOTE | 2021-01-30 09:55 | P.PN ---
Subjective Progress Note Date: 01/30/21 Principal diagnosis: Status post bypass grafting. Coronary artery disease, left main stenosis, non-ST segment elevation myocardial infarction This is a very pleasant 75-year-old female patient who has a history of previous colectomy with colostomy and subsequent reversal, hyperlipidemia, hypertension, osteoarthritis, right-sided breast cancer status post mastectomy, depression. Remote smoking history. She presented to the emergency room on 01/21/2021 with complaints of left-sided chest discomfort radiating down her left arm and into her back. Echocardiogram revealed a normal left ventricular systolic function with ejection fraction 55-60%. No significant valvular disease. She was taken to the cardiac catheterization lab on 01/22/2021 and found to have eccentric 60- 70% stenosis of the left main, 80-90% eccentric lesion in the proximal portion of the left circumflex. Moderate to severe disease involving the ostium of the right coronary artery and 60% stenosis in the mid RCA. Computed tomography scan of the chest revealed atherosclerotic vascular disease. Extensive coronary artery calcification. Pleural thickening and fluid at the lung bases. Minimal atelectasis left lung base. No significant aortic valve calcification. The plan is for coronary artery bypass surgery on 01/25/2021. She is seen today in consultation in the intensive care unit. She is currently awake and alert in no acute distress. No chest pain currently. No worsening shortness of breath cough or congestion. She is maintaining O2 saturation in the mid 90s on 2 L/m nasal cannula. White count 5.8. Hemoglobin 11.7. Platelets 197. Sodium 137. Potassium 4.1. Bicarb 20. Creatinine 1.26. Urinalysis clear. Coronavirus not detected. She remains on heparin drip, nitroglycerin drip at 10 mcg/m. On 01/24/2021 patient seen in follow-up in the intensive care unit. Last night patient had an episode of acute shortness of breath, and flash pulmonary edema. Chest x-ray was obtained showing increased interstitial density related to acute interstitial edema. She was given diuretics, and she has made 3.5 L of urine output in last 24 hours, and she is in -1.2 L net fluid balance. Currently breathing much easier, she is on 2 L of oxygen pulse ox is 95%, she is in sinus mechanism, denies any chest pain this morning, she remains on heparin infusion per weight-based protocol, and nitroglycerin currently at 10 mics per kilo per minute. No repeat chest x-ray was done today, lungs are clear bilaterally. No altered mentation. Patient has also been complaining of right lower extremity pain, and a vascular surgery is consulted for right lower extremity arterial in sufficiency. She is currently on oral aspirin. Today's labs have been reviewed, blood vessel, is normal at 5.5, hemoglobin is 10.7, sodium is 136, there is electrolytes were within normal limits, BUN is 22, and creatinine is 1.28 On 01/25/2021 patient is seen in follow-up in the intensive care unit. She seen in the postoperative period, post off-pump three-vessel coronary artery bypass grafting, with WESLEY to the LAD, and right radial arterial graft to the OM, SVG to the MARJ, left lower extremity endoscopic vein harvesting, and left radial artery endoscopic harvesting and exclusion of the left atrial appendage. Patient is sedated, and intubated on mechanical ventilator, currently on assist- control mode of ventilation with a rate of 14, tidal volume is 400, FiO2 100% and PEEP of 5. Postoperative blood gas and chest x-ray is pending, patient is currently on Cardizem drip at 5 mg per hour, nitroglycerin is at 5 mics per kilo per minute, Diprivan and is at 20 mics per kilo per minute, and 0.9 normal saline to 50 ML per hour. EBL Intra-Op was 1 L, patient received crystalloids and 750 ML of 5% albumin Intra-Op. Patient has right and left and mediastinal chest tubes in place with small amount of sanguinous output in the Pleur-evac's. No air leak noted. Patient is in sinus mechanism. PA pressure 16/9, CVP 24, and CO/CI are 2.7 and 1.6 respectively. Patient is in sinus mechanism, liver she is bradycardic with a rate of 44. On 01/27/2021 patient seen in follow-up in the intensive care unit, today is postoperative day #2, status post three-vessel off-pump coronary artery bypass grafting. Patient is awake and alert, in no acute distress, she is sitting up in a recliner, he is currently on 2 L of oxygen pulse ox is 93%, she is breathing comfortably, she appears weak, but appears to be in no respiratory distress, today's chest x-ray shows small right apical pneumothorax, and cardiomegaly. Patient's mediastinal chest tube was discontinued yesterday, she still has a right and left pleural chest tubes that are connected to the same Pleur-evac, and the output from both chest tubes is quite thin, and serous, and quite significant in amount, patient put out 960 mL over the last 24 hours. We'll catheter is in place, she is making urine in the order of 25-30 ML per hour, 0.9 normal saline is infusing at a rate of 10 ML per hour, dopamine drip has been discontinued yesterday, hemodynamically she is been stable. She is in sinus mechanism, denies any acute complaints, today's labs have been reviewed. Showing white blood cell count of 10.4, hemoglobin is 8.8, sodium is 136, potassium is 4.2, chloride is 107, CO2 is 21, BUN is 25, creatinine is 1. Hemodynamically she has been stable, her cardiac output is 4.2, and cardiac index is 2.5, Desmet-Cyndi is supposed to be discontinued today. Patient has been ambulating with physical therapy, tolerates activity fairly well. On 01/28/2021 patient seen in follow-up in the intensive care unit, today is postoperative day #3 as post three-vessel off-pump coronary artery bypass grafting. Patient is resting in the recliner, mildly short of breath at rest and, in conversation, but appears to be in no acute distress, had 2 L of oxygen pulse ox is 95 percent. Hemodynamically she stable, she is afebrile. CT surge ry is at the bedside, and patient had both pleural chest tubes removed this morning. This morning's chest x-ray showed a small right apical pneumothorax which is slightly diminished from yesterday's chest x-ray, and tiny left apical pneumothorax, mild developing left lower lobe infiltrate. Patient is working on incentive spirometer, she is achieving 500-750 on it today. Lung sounds reveal diminished breath sounds overall, with bibasilar crackles. Patient remains on IV Lasix 20 mg IV twice daily. She is in -398 mL net fluid balance over the last 24 hours, her incisions are clean dry and intact, no significant swelling involving the lower extremities. She is in sinus mechanism. She has been tolerating ambulation. The patient is seen today 01/29/2021 in follow-up in the intensive care unit. Postoperative day #4. She is currently doing quite well. She is down to nasal oxygen at 3 L/m maintaining O2 saturations in the low 90s. She's been afebrile. Hemodynamically stable. Chest x-ray reveals bilateral pleural parenchymal changes which are stable with bilateral infiltrate and pleural effusion. Stable right apical pneumothorax. She is still pulling approximately 500 ML's on the incentive spirometer. White count 8.9. Hemoglobin 8.2. Platelets 217. Sodium 134. Potassium 5.2. Creatinine 1.60. Glucose 134. She remains on bronchodilators. Heparin for DVT prophylaxis. She's been up ambulating with assistance. Progress note dated 01/30/2021. 75-year-old female, again seen in room 267, intensive care unit. Today's postop day #5. She's doing well. She is down to 2 L nasal cannula. The hope is, that in the next day or so, she'll be transferred to inpatient rehabilitation at [facility]. White count 9.6, hemoglobin 8, hematocrit 24.8, and marj telet count 249,000. Sodium 134, potassium 4.6, chlorides 103, CO2 22, anion gap 9, BUN 52, creatinine 1.43. Chest x-ray shows overall improvement in the opacification of the lateral chest wall area. Objective - Vital Signs Vital signs: Vital Signs Temp 98.1 F 01/30/21 08:00 Pulse 67 01/30/21 08:49 Resp 20 01/30/21 08:00 BP 119/41 01/30/21 08:00 Pulse Ox 97 01/30/21 08:00 Intake & Output 01/29/21 01/30/21 01/30/21 18:59 06:59 18:59 Intake Total 150 240 Output Total 480 300 Balance -330 -60 Weight 74.4 kg 74.2 kg Intake: Oral 150 240 Output: Drainage 55 Left Pleural Chest Tube 40 Right Pleural Chest Tube 15 Urine 425 300 Other: Voiding Method Bedside Commode Bedside Commode ABP, PAP, CO, CI - Last Documented Arterial Blood Pressure 140/140 Pulmonary Artery Pressure 30/24 Cardiac Output 4.5 Cardiac Index 2.7 - Exam No acute distress, oriented 3. Saturations are 97%. HEENT examination is grossly unremarkable. Neck supple. Full range of motion. No adenopathy thyromegaly or neck vein distention. Cardiovascular examination reveals regular rhythm rate. S1-S2 normal. No S3 or S4. No discernible murmur noted. Heart rate is 67 bpm. Lungs reveal clear breath sounds. Her sounds are equal bilaterally. No adventitious lung sounds including wheezes rhonchi or crackles. Abdomen soft bowel sounds are heard. No masses or tenderness. Extremities are intact. No cyanosis clubbing or edema. Skin is without rash or lesion. Neurologic examination is brief but nonfocal. - Labs CBC & Chem 7: 01/30/21 03:40 01/30/21 03:40 Labs: Abnormal Lab Results - Last 24 Hours (Table) 01/29/21 01/29/21 01/29/21 Range/Units 12:14 16:45 20:35 RBC (3.80-5.40) m/uL Hgb (11.4-16.0) gm/dL Hct (34.0-46.0) % Sodium (137-145) mmol/L BUN (7-17) mg/dL Creatinine (0.52-1.04) mg/dL Glucose (74-99) mg/dL POC Glucose (mg/dL) 109 H 112 H 135 H (75-99) mg/dL AST (14-36) U/L ALT (4-34) U/L Alkaline Phosphatase (38-126) U/L Total Protein (6.3-8.2) g/dL Albumin (3.5-5.0) g/dL 01/30/21 01/30/21 Range/Units 03:40 03:40 RBC 2.82 L (3.80-5.40) m/uL Hgb 8.0 L (11.4-16.0) gm/dL Hct 24.8 L (34.0-46.0) % Sodium 134 L (137-145) mmol/L BUN 52 H (7-17) mg/dL Creatinine 1.43 H (0.52-1.04) mg/dL Glucose 123 H (74-99) mg/dL POC Glucose (mg/dL) (75-99) mg/dL AST 153 H (14-36) U/L ALT 143 H (4-34) U/L Alkaline Phosphatase 187 H (38-126) U/L Total Protein 5.4 L (6.3-8.2) g/dL Albumin 3.0 L (3.5-5.0) g/dL Assessment and Plan Assessment: 1 Acute non-ST segment elevation myocardial infarction in a patient found to have left main disease, status post off-pump 3 vessel coronary artery bypass grafting, with a WESLEY to LAD, and right radial arterial graft, endovascular vein harvest of the saphenous venous graft from the left leg, and endovascular harvest of the right radial arterial graft, exclusion of the left atrial appendage, postoperative day #5. 2 Routine postoperative ventilator management, extubated on 01/25/2021, on postop day #0. 3 Acute blood loss anemia related to sternotomy and coronary artery bypass surgery, normal outcome of surgery. 4 History of hypertension. 5 Hyperlipidemia. 6 Remote history of chronic tobacco dependence, FEV1 value 84%. 7 Previous bowel resection with colostomy and subsequent reversal. 8 History of right-sided breast cancer with chemotherapy and right-sided mastectomy. 9 Hypothyroidism, found on this admission, initiated on Tapazole. 10 History of depression. Plan: Plan dated 01/30/2021. The patient's doing well. She's been weaned down to 2 L. Saturations are in the mid 90s. Her labs, x-rays, and medications are all reviewed. Chest x-ray shows a pattern of improving infiltrates. Clinically she stable. The patient is going to be discharged to [facility], for inpatient rehabilitation. We will continue to follow and make recommendations where appropriate. Time with Patient: Less than 30
[2021-01-30 11:05] LABS: Glucose,Whole Blood 122 mg/dL (75-99)
--- NOTE | 2021-01-30 11:12 | PN ---
PROGRESS NOTE Mrs. Larkin is in sinus rhythm with IVCD, probably left bundle, recovering nicely. She is doing better on incentive spirometry, hemodynamically stable blood pressure is good. Vitals are stable. There is no JVD S1-S2 heard normally no significant rub, but there is a short systolic murmur. Lungs reveal fair air entry. Abdomen is soft. Lower extremities reveal diminished pulses. Plan is to continue current medications, incentive spirometry, pulmonary toilet and move her to inpatient rehab facility. I am recommending that she should see Dr. Solano in 2 weeks after discharge. MMODL / IJN: [id number] /
[2021-01-30] MEDS ORDERED: bisacodyL 10 MG SUPP RECTAL SCH (12:00)
[2021-01-30] MEDS: amLODIPine 5 MG TAB PO SCH (12:10)
--- NOTE | 2021-01-30 12:43 | P.DS ---
Providers Date of admission: 01/21/21 15:57 Expected date of discharge: 01/30/21 Attending physician: Denys Flores Consults: 01/21/21 15:59 Consult Physician Routine Consulting Provider: Merissa Solano Consult Reason/Comments: NSTEMI Do you want consulting provider notified?: Yes 01/22/21 13:19 Consult Physician Routine Consulting Provider: Denys Ring Consult Reason/Comments: possible heart surgery Do you want consulting provider notified?: Already Contacted 01/23/21 07:07 Consult Physician Routine Consulting Provider: Levi Gordillo Consult Reason/Comments: pulm/preop cabg Do you want consulting provider notified?: Already Contacted 01/23/21 09:23 Consult to Anesthesia Routine Consulting Provider: Anesthesia,Services Consult Reason/Comments: Cardiac Surgery Pre-Op 01/25/21 13:05 Consult Physician Routine Consulting Provider: Misty Lomax Consult Reason/Comments: medical Management Do you want consulting provider notified?: Yes 01/28/21 12:07 Consult Physician Routine Consulting Provider: Carter Flores Consult Reason/Comments: inpatient rehab at discharge Do you want consulting provider notified?: Yes Primary care physician: [facility] Course: FINAL DIAGNOSIS: 1. Coronary artery disease with left main disease, non-STEMI at this admission 2. Hyperthyroid discovered with preoperative labs, TSH < 0.015, free T4 5.21 3. Borderline diabetic, hemoglobin A1c 6.6% 4. History of hypertension 5. History of hyperlipidemia, treated, cholesterol 96, LDL 40 6. History of breast cancer status post right mastectomy with chemotherapy approximately 25 years ago without radiation 7. History of colostomy for bowel rest due to diverticulitis status post reversal 8. Previous tobacco dependence, preoperative FEV1 84% of predicted 9. Remote history of pneumonia 10. Right lower extremity arterial insufficiency after heart catheterization 11. Postoperative acute blood loss anemia, expected 12. Transaminitis 13. Acute kidney injury PRINCIPAL PROCEDURE: 1. Off-pump coronary artery bypass graft 3 with left internal mammary artery to the left anterior descending artery, left radial artery graft to the obtuse marginal coronary artery, reverse saphenous vein graft to the posterior lateral branch of the right coronary artery 2. Endovascular left thigh greater saphenous vein harvest 3. Endovascular left radial artery harvest 4. Exclusion of the left atrial appendage with a 35 mm AtriClip HISTORY OF PRESENT ILLNESS: This is a 75-year-old female who follows on an outpatient basis with Dr. Torre for primary care. She complained of a 5 day history of burning-like chest pain in the center of her chest which occurred after eating. She denied any shortness of breath, diaphoresis, nausea, vomiting. She did endorse low-grade fever of 99.6. She did try Tums and milk without any relief. The pain continued to get worse so she reported to [facility] emergency room for evaluation and treatment. Troponins were elevated, EKG demonstrated sinus rhythm with ST changes and the patient was ruled in for non-STEMI. She was admitted for further cardiac workup with consultation placed to cardiology. She was recommended to undergo heart catheterization which demonstrated left main coronary artery stenosis 60-70%, proximal circumflex stenosis 80-90%, proximal RCA stenosis 50-60% with mid RCA stenosis 60% and elevated end diastolic pressure. Consultation was placed to cardiothoracic surgery for recommendations. She was recommended to undergo coronary artery bypass surgery. The usual perioperative course was discussed in detail with the patient and her daughter, all risks and benefits were explained, all questions were answered, and consent was obtained to proceed with surgery. The patient was kept inpatient due to the nature of her disease process. Of note, preoperative workup revealed hyperthyroidism and she was started on Tapazole. HOSPITAL COURSE: The patient was brought to the preoperative area 01/25/2021, prepared in the usual fashion, and subsequently taken to the operating room where Dr. Flores performed off-pump three-vessel CABG. Upon completion of surgery the patient was transferred to the cardiovascular intensive care unit where she was recovered and monitored hemodynamically. She was extubated, all lines, tubes, and drips were discontinued when appropriate, and transfer orders were placed for 3 S. cardiac stepdown unit, however there was no bed availability and the patient remained on ICU as a stepdown patient until discharge. Her oxygen was titrated down, she continued to work with physical and occupational therapy, she was tolerating oral diet, and her pain was controlled. She did require assistance with ambulation and ADLs, safety concerns were noted, the patient lives by herself with no help at home, recommendations were made for inpatient rehab at discharge. She was ready to be discharged to [facility] inpatient rehab on postoperative day #5 with continued care from cardiology and pulmonology. She received written and verbal instruction regarding her medications, activity restrictions, signs and symptoms requiring physician notification, and follow-up appointments. Patient Condition at Discharge: Stable Plan - Discharge Summary Discharge Rx Participant: No New Discharge Prescriptions: New Aspirin 325 mg PO DAILY tab Ipratropium-Albuterol Nebulize [Duoneb 0.5 mg-3 mg/3 ml Soln] 3 ml INHALATION RT-QID ml Ipratropium-Albuterol Nebulize [Duoneb 0.5 mg-3 mg/3 ml Soln] 3 ml INHALATION RT-Q2H PRN ml PRN Reason: Shortness Of Breath Or Wheezing Melatonin 5 mg PO HS tablet amLODIPine [Norvasc] 5 mg PO DAILY@1200 tab INSULIN ASPART (NovoLOG) [NovoLOG (formulary)] 0 unit SQ ACHS vial Clopidogrel [Plavix] 75 mg PO DAILY tab Pantoprazole [Protonix] 40 mg PO AC-BRKFST tablet. methIMAzole [Tapazole] 15 mg PO DAILY tab Acetaminophen Tab [Tylenol] 650 mg PO Q4HR PRN tab PRN Reason: Fever And/ Or Pain bisacodyL [Dulcolax] 10 mg RECTAL DAILY@1200 PRN supp PRN Reason: Constipation Metoprolol Tartrate [Lopressor] 12.5 mg PO BID tab Sennosides-Docusate Sodium [Senokot-S] 2 each PO HS tab Continue Rosuvastatin [Crestor] 20 mg PO HS@2200 buPROPion [Wellbutrin] 75 mg PO DAILY@0800 Amitriptyline HCl [Elavil] 20 mg PO DAILY Cholecalciferol [Vitamin D3 (25 Mcg = 1000 Iu)] 50 mcg PO DAILY@0800 Sertraline [Zoloft] 100 mg PO DAILY@0800 ALPRAZolam [Xanax] 1 mg PO DAILY@0800,2200 Discontinued amLODIPine [Norvasc] 5 mg PO HS@2200 Discharge Medication List ALPRAZolam [Xanax] 1 mg PO DAILY@0800,2200 01/21/21 [History] Amitriptyline HCl [Elavil] 20 mg PO DAILY 01/21/21 [History] Cholecalciferol [Vitamin D3 (25 Mcg = 1000 Iu)] 50 mcg PO DAILY@0800 01/21/21 [History] Rosuvastatin [Crestor] 20 mg PO HS@2200 01/21/21 [History] Sertraline [Zoloft] 100 mg PO DAILY@0800 01/21/21 [History] buPROPion [Wellbutrin] 75 mg PO DAILY@0801/21/21 [History] Acetaminophen Tab [Tylenol] 650 mg PO Q4HR PRN tab 01/30/21 [Rx] Aspirin 325 mg PO DAILY tab 01/30/21 [Rx] Clopidogrel [Plavix] 75 mg PO DAILY tab 01/30/21 [Rx] INSULIN ASPART (NovoLOG) [NovoLOG (formulary)] 0 unit SQ ACHS vial 01/30/21 [Rx] Ipratropium-Albuterol Nebulize [Duoneb 0.5 mg-3 mg/3 ml Soln] 3 ml INHALATION RT-Q2H PRN ml 01/30/21 [Rx] Ipratropium-Albuterol Nebulize [Duoneb 0.5 mg-3 mg/3 ml Soln] 3 ml INHALATION RT-QID ml 01/30/21 [Rx] Melatonin 5 mg PO HS tablet 01/30/21 [Rx] Metoprolol Tartrate [Lopressor] 12.5 mg PO BID tab 01/30/21 [Rx] Pantoprazole [Protonix] 40 mg PO AC-BRKFST tablet. 01/30/21 [Rx] Sennosides-Docusate Sodium [Senokot-S] 2 each PO HS tab 01/30/21 [Rx] amLODIPine [Norvasc] 5 mg PO DAILY@1200 tab 01/30/21 [Rx] bisacodyL [Dulcolax] 10 mg RECTAL DAILY@1200 PRN supp 01/30/21 [Rx] methIMAzole [Tapazole] 15 mg PO DAILY tab 01/30/21 [Rx] Follow up Appointment(s)/Referral(s): Levi Gordillo MD [STAFF PHYSICIAN] - 1 Week (Please make follow up appoinment upon discharge from [facility] Inpatient Rehab) Rehab Sharita LUNDBERG,Cardiac [NON-STAFF] - 4 Weeks (You will be called approximately 4-6 weeks after surgery for cardiac rehab evaluation) Denys Flores MD [STAFF PHYSICIAN] - 02/21/21 10:00 am Jerry Torre DO [Primary Care Provider] - 1 Week (Please make follow up appoinment upon discharge from [facility]patient [facility]) Dana Christopher DO [STAFF PHYSICIAN] - 1 Week (Please make follow up appoinment upon discharge from [facility] Inpatient Re[facility]) [facility], [NON-STAFF] - 1-2 Days Merissa Solano MD [STAFF PHYSICIAN] - 1 Week (Please make follow up appoinment upon discharge from [facility] Inpatient Rehab) Activity/Diet/Wound Care/Special Instructions: CONSULTS AT [facility] INPATIENT REHAB: Dr. Solano for cardiology Dr. Gordillo for pulmonology Dr. Lomax for internal medicine DISCHARGE INSTRUCTIONS: 1. No driving for 4 weeks, or until physician gives their ok. 2. The patient should sleep in their own bed, no medical bed needed. 3. Stairs are not an issue. If the bedroom is upstairs, it is advised that the patient go up at night and down in the morning for the first week. Go slowly, using handrail and take 1 step at a time. 4. JUDE hose are to be worn for 30 days or until physician discontinues. 5. Heart hugger is to be worn 100% of the time until physician discontinues.(except when showering) 6. No lifting, pushing, or pulling more than 10 pounds for 12 weeks. The physician will advise of any restriction changes. 7. The patient is expected to continue the prescribed walking program. 8. Continue pain control per as needed orders. 9. Continue with incentive spirometry and splinting/heart hugger until otherwise directed by the physician. 10. Must shower daily using liquid antibacterial soap and a separate white washcloth for each individual incision. 11. Routine sternal incision care. No powders, lotions, ointments on incisions. No dressings are necessary on incisions unless they are draining. Dermabond tape is to remain on sternal incision until surgeon follow-up. 12. Please call surgeon/CHIEF RADIOLOGIC TECHNOLOGIST for temp greater than 101 F or purulent drainage from incisions. 13. A Red armband has been placed on the patient. It should be worn for 30 days post surgery and will be removed by the cardiac surgeons. If an ER visit is necessary, please make sure the number on the Red armband is called. 14. You have been referred to and are expected to begin Cardiac Rehab in approximately 4-6 weeks. HOME HEALTH SERVICES TO PROVIDE AT DISCHARGE FROM INPATIENT REHAB: RN SKILLED HOME CARE SERVICES FOR POST-OP SURGICAL PATIENTS WITH THE FOLLOWING: Coronary Artery Bypass Surgery (CABG), Mitral Valve Replacement/Repair ( MVR), Aortic Valve Replacement/Repair (AVR) RN TO CONTINUE EDUCATION FROM ``ROAD TO A HEALTH HEART PATIENT EDUCATION MANUAL (GIVEN TO PATIENT IN THE HOSPITAL) MEDICATION RECONCILIATION WITH EDUCATION NEEDED ON FIRST HOME VISIT EMPHASIZE IMPORTANCE OF WEARING BREAST SUPPORT/HEART HUGGER ENCOURAGE USE OF INCENTIVE SPIROMETER 10 X EVERY HOUR WHILE AWAKE ENCOURAGE UTILIZATION OF LOWER EXTREMITY COMPRESSION STOCKINGS/JUDE HOSE and ELEVATE LEGS ABOVE LEVEL OF HEART WHILE AT REST. ENCOURAGE AMBULATION 3-5x/day INCREASING TOLERATES, WHILE AVOIDING EXTREMES IN TEMPERATURE FREQUENCY: RN TO OPEN THE PATIENT WITHIN 24 HOURS OF DISCHARGE FROM INPATIENT REHAB WITH TELEHEALTH INSTALLED AT [facility], RN TO VISIT 2-3 X A WEEK FOR 4 WEEKS ESTABLISHED BY PATIENT NEEDS. LABORATORY: CBC, CMP TO BE DRAWN ON THE THIRD DAY HOME, (RAN STAT) FAX RESULTS TO [phone]. TELEHEALTH PARAMETERS: WEIGHT: NOTIFY MD OF WEIGHT GAIN OF 2 LBS IN 24 HOURS OR 5 LBS IN ONE WEEK HR: NOTIFY MD OF HR <55 BPM OR HR>100 BPM BP: NOTIFY MD IF BP <90/55 OR BP>140/100 O2 SAT: NOTIFY MD IF PO2<93% ON ROOM AIR SEND TELEHEALTH REPORT TO DRY DIP WORKER AND CARDIOVASCULAR SURGEON THE FIRST WEEK OF CARE AND THEN BI-WEEKLY. PLEASE ADDITIONALLY COMMUNICATE ANY ABNORMALS AND NEW FINDINGS TO THE SURGEONS OFFICE. For any questions or concerns please call jewel diameter gauger Desiree @ or Don @ Discharge Disposition: DC/TRNS INTERMEDIATE CARE FAC
--- NOTE | 2021-01-30 12:50 | P.PN ---
Subjective Progress Note Date: 01/30/21 Patient is a pleasant 75-year-old female came in with compensative chest pressure like sensation about a stress 10 in severity on the left side of the chest radiating to the left shoulder along with the diaphoresis or shortness of breath. Patient has a classic chest pain found to have some ST-T wave changes in the leads 1 before to V6. Patient also had mildly elevated troponin because of which patient underwent cardiac catheterization which showed critical left main disease along with the moderate disease in RCA and some disease in the left circumflex as well. Patient had left bundle branch block on the EKG no other EKGs to compare with. Patient is presently on heparin drip and being evaluated for coronary artery bypass grafting at this time. 01/23/2021 Patient is found to be hyperthyroid on this hospitalization patient was a started on methimazole further workup for for hyperthyroidism can be done as an outpatient after coronary artery disease his addressed. Patient is also found to have right lower extremity arterial insufficiency for which vascular surgery is recommending continuation of anticoagulation without any further intervention at this point of time. Patient is scheduled to undergo coronary artery bypass grafting in Thursday serum creatinine appears to have worsened a bit. Patient is also on IV calcium maría for blood pressure control. Patient is also receiving preoperative antibiotics. 01/24/2021 Patient is seen in follow-up continues to be closely monitored in the ICU. Plan is for myocardial revascularization surgery with Dr. Denys Flores tomorrow. Patient per nursing staff had an episode of pulmonary edema and was given Lasix with significant diuresis noted. Patient continues on nitro and heparin drip and multiple medical consultations following including milk drier, vascular surgery, pulmonary. Patient continues on methimazole and will need further outpatient follow-up with endocrine once stabilized. Patient will be nothing by mouth at midnight. White blood count is 5.5 with a hemoglobin of 10.7, sodium is 136 with a potassium of 4.0, BUN is 22 and creatinine is 1.28. Magnesium is found to be 2.1 today. Patient will be placed on insulin drip status post surgery per protocol and will continue to monitor. Discussed with vascular arroyo thuan and patient is currently on IV heparin and will likely be started on anticoagulation status post procedure and will follow-up outpatient for the right lower extremity vascularization. 01/25/2021 Patient is seen post surgery for three-vessel coronary artery bypass grafting, with WESLEY to the LAD, and right radial arterial graft to the OM, SVG to the MARJ, left lower extremity endoscopic vein harvesting, and left radial artery endoscopic harvesting and exclusion of the left atrial appendage. Patient continues to be closely monitored in the ICU and continues to be intubated and per nursing staff attempting to wean as tolerated although patient continues to be quite lethargic. Patient was bradycardic on multiple drips. Patient is on insulin drip and will continue per protocol until patient is awake and tolerating diet. Hemoglobin stable at 8.6 this morning, sodium was 137 with a potassium 4.2 and creatinine 1.02. ALT, AST minimally elevated and will monitor. Magnesium was 1.9. 01/26/2021 Patient is evaluated at the bedside in the intensive care unit post op day #2 three-vessel coronary artery bypass grafting with WESLEY to the LAD and right radial arterial graft to the OM, SVG to the MARJ, left lower extremity endoscopic vein harvesting, and left radial artery endoscopic harvesting and exclusion of the left atrial appendage. Patient is awake alert and oriented 3. Patient was extubated yesterday evening in the ICU, without difficulty. Patient states that she is having some difficulty swallowing, she states that her sore throat is sore and was given medication from the nursing staff. Patient states that cold foods are helping. Patient will continue blood sugar monitoring. Patient's hemoglobin A1c was 6.6, patient is a prediabetic, continue with glycemic contro l, patient is tolerating a minimal oral diet, prefers cold foods. Patient will be transitioned off of the insulin drip to a sliding scale NovoLog coverage. Patient's blood sugars have been consistently in the 120s. Will continue to monitor for any hyperglycemia. Patient continues to have an indwelling catheter. Patient states that she is belching, denies any flatus. Patient is using her incentive spirometer. Patient continues with right and left pleural chest tubes to wall suction. Patient's mediastinal chest tube was pulled today via cardiothoracic services. Dopamine and Cardizem have been discontinued via cardiothoracic services. Patient is normal sinus rhythm with a heart rate of 70s, bundle branch block. Continue to encourage ambulation, PT OT, continue to encourage incentive spirometer. 01/27/2021 Patient is evaluated today in the chair. Patient states that she was up ambulating with physical therapy and tolerated it well. Patient states that the Magic cup that was ordered by cardiothoracic services has helped tremendously. She states that her mouth still feels kind of sticky and has a hard time of thicker foods however she does have an appetite. She denies any nausea, vomiting. We'll continue to monitor blood sugars closely as patient continues to tolerate more oral intake. Will add a small dose of scheduled insulin with parameters patient continues to tolerate diet well. Patient was started on a small dose of IV Lasix from cardiothoracic services. Swollen and are outlined have been discontinued, continues on Cordis for continuous CVP monitoring. Chest tubes were left pleural remain for at least another 24 hours. Transfer to medical floor the next 24-48 hours, recommendations from cardiothoracic surgery. Continue to encourage ambulation, incentive spirometry use, wean oxygen as tolerated. Continue with current pain medication regimen. Patient continues to be in normal sinus rhythm, afebrile, blood pressure 117/50 heart rate 85. Rosita ent is 93% on 1 L nasal cannula. Replace electrolytes per protocol. 01/28/2021 Patient is seen and evaluated in follow-up continues to be in the ICU currently sitting up in the chair and working with physical therapy. Patient's blood sugars being closely monitored and continued on sliding scale along with pre- meal insulin and will continue to monitor. Per nursing staff patient is improving and awaiting possible transfer from the ICU. Patient is using bedside commode and has chest tubes and indwelling Christopher catheter removed. Patient continues to be quite weak and recommending subacute rehab. Plans are for possible inpatient rehab and awaiting updated PT/OT therapy notes. Daughter is in agreement with this. Heart hugger noted on exam. White blood count is 8.2 today and hemoglobin is 8.0 01/29/2021 Patient is seen in follow-up currently sitting up in the chair with no acute overnight issues noted. Patient's creatinine slightly elevated and was receiving a few doses of IV Lasix that have been discontinued and creatinine is on 0.6, BUN is 50, sodium is 134 with a potassium of 5.2. Hemoglobin 8.2 and white blood count within normal limits at 8.9. Patient's blood sugars have been within normal limits not requiring insulin and will continue with sliding scale as needed with Accu-Cheks before meals and at bedtime. She continues on 2-3 L via nasal cannula and oxygen saturation is 100%. Patient is afebrile. Encourage the patient to continue with incentive spirometer. Patient reports to a lot of gas and feeling she has to have a bowel movement as this will be her first one since surgery. Patient is urinating with no difficulties. Possible [facility] inpatient rehab in the morning. 01/30/2021 Patient is seen this morning currently resting although easily arousable with no acute overnight issues noted. Patient continues to be on 2 L oxygen saturations of 97%. Wean FiO2 as tolerated. Patient is scheduled to be going to [facility] for inpatient rehab today. White blood count is 9.6, hemoglobin is stable at 8.0, sodium 134 with a potassium 4.6 creatinine slightly improved at 1.43 and liver functions continue to be elevated and recommend outpatient monitoring for trending down pattern. Review of systems: Constitutional: No report of fatigue, no reports of fever, or chills Cardiovascular: No reports of chest pain or palpitations, reports chest wall discomfort Respiratory: reports mild shortness of breath with exertion GI: No reports of nausea, vomiting, or diarrhea : No reports of dysuria or retention Neurovascular: reports generalized weakness All inpatient medications were reviewed and appropriate changes in these medications as dictated in the interval history and assessment and plan. PHYSICAL EXAMINATION: GENERAL: The patient is alert and oriented x3, not in any acute distress. Well developed, well nourished. HEENT: Pupils are round and equally reacting to light. EOMI. No scleral icterus. No conjunctival pallor. Normocephalic, atraumatic. No pharyngeal erythema. No thyromegaly. CARDIOVASCULAR: S1 and S2 present. No murmurs, rubs, or gallops. PULMONARY: Diminished Breath sounds bilaterally, no wheezing or crackles. ABDOMEN: Soft, nontender, non-distended, normoactive bowel sounds. No palpable organomegaly. MUSCULOSKELETAL: No joint swelling or deformity. EXTREMITIES: No cyanosis, clubbing, or pedal edema. NEUROLOGICAL: Gross neurological examination did not reveal any focal deficits. SKIN: No rashes. Assessment and plan: -Non-ST segment elevation myocardial infarction, acute: Patient is status post cardiac catheterization, patient underwent coronary artery bypass grafting with Dr. Denys Flores on 01/24/2021. -Hypertension -Hyperlipidemia -Left bundle-branch block unclear if it's a new lead prior left bundle-branch block -Hyperthyroidism: Primary hyperthyroidism continue with methimazole. Patient will need outpatient follow-up with endocrinology -Right lower extremity arterial insufficiency continuing on subcutaneous heparin -Mild acute renal failure probably secondary to contrast, prerenal azotemia -Full code -DVT prophylaxis: Currently on subcut heparin Plan: Patient continues in the ICU and plans are for discharge to [facility] inpatient rehab as she continues to be weak. Multiple medical consultations following. Continue with sliding scale as needed with Accu-Cheks before meals and at bedtime for tight glycemic control. Continue with breathing inhalational treat ments and methimazole. Patient will need outpatient follow-up for further TSH testing in approximately 6 weeks as this was just started. Encouraged incentive spirometry at least 10 times every hours while awake. Encourage increased activity as tolerated. We will continue to follow along during h ospitalization and likely follow the patient as well at [facility]. Objective - Vital Signs Vital signs: Vital Signs Temp 97.8 F 01/30/21 04:00 Pulse 67 01/30/21 04:00 Resp 25 H 01/30/21 04:00 BP 120/58 01/30/21 04:00 Pulse Ox 95 01/30/21 04:00 Intake & Output 01/29/21 01/30/21 01/30/21 18:59 06:59 18:59 Intake Total 150 240 Output Total 480 300 Balance -330 -60 Weight 74.4 kg 74.2 kg Intake: Oral 150 240 Output: Drainage 55 Left Pleural Chest Tube 40 Right Pleural Chest Tube 15 Urine 425 300 Other: Voiding Method Bedside Commode Bedside Commode ABP, PAP, CO, CI - Last Documented Arterial Blood Pressure 140/140 Pulmonary Artery Pressure 30/24 Cardiac Output 4.5 Cardiac Index 2.7 - Labs CBC & Chem 7: 01/30/21 03:40 01/30/21 03:40 Labs: Abnormal Lab Results - Last 24 Hours (Table) 01/29/21 01/29/21 01/29/21 Range/Units 12:14 16:45 20:35 RBC (3.80-5.40) m/uL Hgb (11.4-16.0) gm/dL Hct (34.0-46.0) % Sodium (137-145) mmol/L BUN (7-17) mg/dL Creatinine (0.52-1.04) mg/dL Glucose (74-99) mg/dL POC Glucose (mg/dL) 109 H 112 H 135 H (75-99) mg/dL AST (14-36) U/L ALT (4-34) U/L Alkaline Phosphatase (38-126) U/L Total Protein (6.3-8.2) g/dL Albumin (3.5-5.0) g/dL 01/30/21 01/30/21 Range/Units 03:40 03:40 RBC 2.82 L (3.80-5.40) m/uL Hgb 8.0 L (11.4-16.0) gm/dL Hct 24.8 L (34.0-46.0) % Sodium 134 L (137-145) mmol/L BUN 52 H (7-17) mg/dL Creatinine 1.43 H (0.52-1.04) mg/dL Glucose 123 H (74-99) mg/dL POC Glucose (mg/dL) (75-99) mg/dL AST 153 H (14-36) U/L ALT 143 H (4-34) U/L Alkaline Phosphatase 187 H (38-126) U/L Total Protein 5.4 L (6.3-8.2) g/dL Albumin 3.0 L (3.5-5.0) g/dL
[2021-01-30 13:19] VITALS: BP 110/47; PULSE 64; TEMP 98.7
[2021-01-30 16:32] LABS: Glucose,Whole Blood 121 mg/dL (75-99)
--- NOTE | 2021-02-01 10:23 | CDI ---
Documentation Clarification Form Date: 02/01/2021 10:06:20 AM From: Gerda Clark CCS, CCDS Admit Date: 01/21/2021 03:57:00 PM Patient Name: Jenny Larkin Visit Number: [id number] Discharge Date: 01/30/2021 05:58:00 PM ATTENTION: The Clinical Documentation Specialists (CDI) and [facility] Coding Staff appreciate your assistance in clarifying documentation. Please respond to the clarification below the line at the bottom and electronically sign. The CDI & [facility] Coding staff will review the response and follow-up if needed. Please note: Queries are made part of the Legal Health Record. If you have any questions, please contact the author of this message via ITS. Dr. Denys Flores: Pneumothorax is documented in the 01/27 Pulmonary Progress Note, the 01/28 Cardiology Progress Note and subsequent Progress Notes until 01/30. The patient had a CABG for NSTEMI & CAD on 01/25. Additional clarification is requested regarding the relationship, if any, that exists between the diagnosis of pneumothorax and the procedure. Patients Admitting Diagnosis per the 01/22 H/P: NSTEMI, acute, status post heart catheterization being evaluated for CABG for critical LAD lesion. Post-Operative Diagnosis 01/25: CAD, NSTEMI Procedure performed: Off pump CABG x3. History/Risk Factors per the 01/22 H/P: Hypertension, Hyperlipidemia, OA, Colon Cancer status post Bowel Resection w/Colostomy & Reversal, Right Breast Cancer status post Mastectomy, Former smoker. Clinical Indicators: Presented to the ED on 01/21 via EMS with CP with elevated troponins. Admit with Acute NSTEMI. 01/21 CXR: no acute process. 01/23 CXR: Increased interstitial density. Could be acute interstitial pneumonia. Acute heart failure not excluded. 01/25 Postop CXR: Mild scattered infiltrate, could be atypical pulmonary edema or atelectasis. 01/27 CXR: Small right apical pneumothorax. 01/28 CXR: Small right apical pneumothorax, slightly diminished. Tiny left apical pneumothorax. 01/29 CXR: Stable right apical pneumothorax Treatment post CABG 01/25: IV Albumin 25 mls/hr q1H, IV Cardizem 125 mls/hr q2H, IV Insulin sched, IV Lactated Ringers 20 mls/hr q24H, IV Apresoline 10 g q1H, INH Duoneb, Heparin sq. Returned to ICU postop on vent @ 13:00, extubated @ 19:00 to 6Lnc with bilateral pleural chest tubes and a mediastinum chest tube in place. Mediastinal chest tube removed on 01/26. Bilateral pleural chest tubes remained until 01/30. What relationship, if any, exists between the diagnosis of pneumothorax and the procedure: [ ] Pneumothorax is a complication of surgical procedure [ ] Pneumothorax is an expected outcome of the surgical procedure [ ] Pneumothorax is related to patients co-morbid condition(s), please specify: & not a complication of the procedure [ x ] Other please specify: ___PTX was clinically insignificant [ ] Unable to determine (Template Last Revised: August 2020) MTDD
--- NOTE | 2021-02-01 14:09 | CDI ---
Documentation Clarification Form Date: 02/01/21 From: Korina Johnston Admit Date: 01/21/2021 03:57:00 PM Patient Name: Jenny Larkin Visit Number: [id number] Discharge Date: 01/30/2021 05:58:00 PM ATTENTION: The Clinical Documentation Specialists (CDI) and [facility] Coding Staff appreciate your assistance in clarifying documentation. Please respond to the clarification below the line at the bottom and electronically sign. The CDI & [facility] Coding staff will review the response and follow-up if needed. Please note: Queries are made part of the Legal Health Record. If you have any questions, please contact the author of this message via ITS. Dr. Denys Flores, Your patient has the documented diagnosis of unspecified CHF per Dr Flores's consult . Additional information regarding the [type, acuity] of CHF is requested. History/Risk Factors: HTN, NSTEMI, CAD, Pulm HTN, Clinical Indicators: The patient developed flash pulmonary edema on 01/24 and was treated with IV Lasix. 01/23 VS/Pulse OX: P-58, R-26, BP 107/52, O2 sat-91 BNP: 3440 01/22 Echocardiogram Results: Overall left ventricular systolic function is normal with, an EF between 55- 60 %. 01/21 Chest X Ray: Chronic appearing changes. No definite acute process. 01/23 Chest X RAY: Increased interstitial density compared to recent exam. This could be acute interstitial pneumonia. Acute heart failure not excluded. Treatment: No home Lasix, 01/22 started on IV Lasix In your professional opinion, can you please clarify the [acuity and type] of CHF if known? [ ] Acute Systolic Heart Failure (reduced EF) [ ] Chronic Systolic Heart Failure (reduced EF) [ ] Acute on Chronic Systolic Heart Failure (reduced EF) [ ] Acute Diastolic Heart Failure (preserved EF) [ ] Chronic Diastolic Heart Failure (preserved EF) [ ] Acute on Chronic Diastolic Heart Failure (preserved EF) [ ] Acute Systolic & Diastolic Heart Failure [ ] Chronic Systolic & Diastolic Heart Failure [ ] Acute on Chronic Heart Failure Systolic & Diastolic Heart Failure [ x ] Other, please specify___Patient did not have CHF despite Dr Flores's note [ ] Unable to determine MTDD
== END 2021-01-30 17:58 | DRG 233 ==
LOC: EC 14:37 → 3SCARD 15:57 → 2SICU 01-22 10:38
PROVIDERS: ADMIT Thoracic Surgery (Cardiothoracic Vascular Surgery); ATTEND Thoracic Surgery (Cardiothoracic Vascular Surgery)
PROC: B2111ZZ Fluoroscopy of Multiple Coronary Arteries using Low Osmolar Contrast (ICD-10-PCS; 2021-01-22)
PROC: 4A023N7 Measurement of Cardiac Sampling and Pressure, Left Heart, Percutaneous Approach (ICD-10-PCS; 2021-01-22)
PROC: B44HZZZ Ultrasonography of Bilateral Lower Extremity Arteries (ICD-10-PCS; 2021-01-23)
PROC: 02100Z9 Bypass Coronary Artery, One Artery from Left Internal Mammary, Open Approach (ICD-10-PCS; principal; 2021-01-25 08:00)
PROC: 06BQ4ZZ Excision of Left Saphenous Vein, Percutaneous Endoscopic Approach (ICD-10-PCS; principal; 2021-01-25 08:00)
PROC: 02L70CK Occlusion of Left Atrial Appendage with Extraluminal Device, Open Approach (ICD-10-PCS; principal; 2021-01-25 08:00)
PROC: B246ZZ4 Ultrasonography of Right and Left Heart, Transesophageal (ICD-10-PCS; principal; 2021-01-25 08:00)
PROC: 03BC4ZZ Excision of Left Radial Artery, Percutaneous Endoscopic Approach (ICD-10-PCS; principal; 2021-01-25 08:00)
PROC: 021109W Bypass Coronary Artery, Two Arteries from Aorta with Autologous Venous Tissue, Open Approach (ICD-10-PCS; principal; 2021-01-25 08:00)
PROC: 02100AW Bypass Coronary Artery, One Artery from Aorta with Autologous Arterial Tissue, Open Approach (ICD-10-PCS; principal; 2021-01-25 08:00)
DX: I21.4 Non-ST elevation (NSTEMI) myocardial infarction (principal); J81.0 Acute pulmonary edema; N17.9 Acute kidney failure, unspecified; D62 Acute posthemorrhagic anemia; I25.110 Atherosclerotic heart disease of native coronary artery with unstable angina pectoris; I27.20 Pulmonary hypertension, unspecified; I73.9 Peripheral vascular disease, unspecified; Z20.822 Contact with and (suspected) exposure to COVID-19; I10 Essential (primary) hypertension; I25.84 Coronary atherosclerosis due to calcified coronary lesion; E78.5 Hyperlipidemia, unspecified; I44.7 Left bundle-branch block, unspecified; R13.10 Dysphagia, unspecified; F32.9 Major depressive disorder, single episode, unspecified; E78.00 Pure hypercholesterolemia, unspecified; E05.90 Thyrotoxicosis, unspecified without thyrotoxic crisis or storm; R73.03 Prediabetes; R73.9 Hyperglycemia, unspecified; R74.01 Elevation of levels of liver transaminase levels; D72.829 Elevated white blood cell count, unspecified; N14.1 Nephropathy induced by other drugs, medicaments and biological substances; T50.8X5A Adverse effect of diagnostic agents, initial encounter; M54.5 Low back pain; M19.90 Unspecified osteoarthritis, unspecified site; Z79.899 Other long term (current) drug therapy; Z87.891 Personal history of nicotine dependence; Z87.448 Personal history of other diseases of urinary system; Z87.42 Personal history of other diseases of the female genital tract; Z90.710 Acquired absence of both cervix and uterus; Z90.49 Acquired absence of other specified parts of digestive tract; Z87.19 Personal history of other diseases of the digestive system; Z98.42 Cataract extraction status, left eye; Z98.41 Cataract extraction status, right eye; Z96.1 Presence of intraocular lens; Z90.11 Acquired absence of right breast and nipple; Z85.3 Personal history of malignant neoplasm of breast; Z85.828 Personal history of other malignant neoplasm of skin; Z96.652 Presence of left artificial knee joint; Z87.01 Personal history of pneumonia (recurrent); Z98.51 Tubal ligation status; Z92.3 Personal history of irradiation; Z98.890 Other specified postprocedural states; Y92.238 Other place in hospital as the place of occurrence of the external cause; Z82.49 Family history of ischemic heart disease and other diseases of the circulatory system; Z80.3 Family history of malignant neoplasm of breast
CPT/HCPCS: 36415; 71045; 71046; 71250; 80048; 80053; 80061; 80074; 81003; 82330; 82805; 83036; 83735; 83880; 84439; 84443; 84484; 85025; 85027; 85520; 85610; 85730; 86850; 86891; 86900; 86901; 86920; 87070; 87635; 93005; 93306; 93458; 93880; 93922; 93970; 94002; 94150; 94640; 99291

== ENCOUNTER 2021-03-03 16:18 | Inpatient (IN) | payer MEDICARE ==
--- NOTE | 2021-03-03 16:45 | ED ---
General Adult HPI - General Chief complaint: Nausea/Vomiting/Diarrhea Stated complaint: post heart surgery, vomiting Time Seen by Provider: 03/03/21 16:44 Source: patient, family Mode of arrival: wheelchair Limitations: no limitations - History of Present Illness Initial comments: Patient presents the ED with her daughter for evaluation. Patient reports having nausea and one bout of emesis over the past couple of hours. Patient also states that she has had mild generalized abdominal pain today. Patient's daughter states that the patient has a history of colon resection with colostomy and subsequent colostomy takedown. Daughter states that the patient has had similar symptoms in the past, but she is concerned because the patient had open heart surgery about 5-6 weeks ago. Patient states that she had a normal bowel movement earlier today. Patient denies trauma or injury, fever or chills, headache, focal neuro deficit, chest pain or pressure, dyspnea, dizziness, back pain, diarrhea or constipation, bloody or melanotic stool, hematemesis, dysuria or urinary symptoms, or any other symptoms or complaints. - Related Data Home Medications Medication Instructions Recorded Confirmed ALPRAZolam [Xanax] 1 mg PO DAILY@0800,2200 01/21/21 03/03/21 Amitriptyline HCl [Elavil] 20 mg PO DAILY 01/21/21 03/03/21 Cholecalciferol [Vitamin D3 (25 50 mcg PO DAILY@79901/21/21 03/03/21 Mcg = 1000 Iu)] Rosuvastatin [Crestor] 20 mg PO HS@2200 01/21/21 03/03/21 Sertraline [Zoloft] 100 mg PO DAILY@79901/21/21 03/03/21 buPROPion [Wellbutrin] 75 mg PO DAILY@79901/21/21 03/03/21 Previous Rx's Medication Instructions Recorded Acetaminophen Tab [Tylenol] 650 mg PO Q4HR PRN tab 01/30/21 Aspirin 325 mg PO DAILY tab 01/30/21 Clopidogrel [Plavix] 75 mg PO DAILY tab 01/30/21 Melatonin 5 mg PO HS tablet 01/30/21 Metoprolol Tartrate [Lopressor] 12.5 mg PO BID tab 01/30/21 Pantoprazole [Protonix] 40 mg PO AC-BRKFST tablet. 01/30/21 amLODIPine [Norvasc] 5 mg PO DAILY@1200 tab 01/30/21 methIMAzole [Tapazole] 15 mg PO DAILY tab 01/30/21 Allergies Allergy/AdvReac Type Severity Reaction Status Date / Time No Known Allergies Allergy Verified 03/03/21 17:41 Review of Systems ROS Statement: Those systems with pertinent positive or pertinent negative responses have been documented in the HPI. ROS Other: All systems not noted in ROS Statement are negative. Past Medical History Past Medical History: Cancer, Hyperlipidemia, Hypertension, Osteoarthritis (OA) Additional Past Medical History / Comment(s): Colostomy bag with removal History of Any Multi-Drug Resistant Organisms: None Reported Past Surgical History: Appendectomy, Bladder Surgery, Bowel Resection, Breast Surgery, Cholecystectomy, Coronary Bypass/CABG, Hysterectomy, Orthopedic Surgery, Tubal Ligation Additional Past Surgical History / Comment(s): cataractsurgery x2 with lens implants, masectomy on right breast, bowel resection with colostomy and reversal, bladder suspension, left knee replacement, skin cancer removed from right ear Past Anesthesia/Blood Transfusion Reactions: No Reported Reaction Past Psychological History: Depression Smoking Status: Former smoker Past Alcohol Use History: None Reported Past Drug Use History: None Reported - Past Family History Father Family Medical History: AFIB, Congestive Heart Failure (CHF) Mother Family Medical History: Cancer Additional Family Medical History / Comment(s): breast cancer with mets General Exam Limitations: no limitations General appearance: alert, in no apparent distress Head exam: Present: atraumatic, normocephalic Eye exam: Present: normal appearance, EOMI ENT exam: Present: mucous membranes moist Neck exam: Present: other (Trachea is in midline) Respiratory exam: Present: normal lung sounds bilaterally, other (Midline sternotomy scar). Absent: respiratory distress, wheezes, rales, rhonchi, stridor Cardiovascular Exam: Present: regular rate, normal rhythm, normal heart sounds, other (Normal radial pulses bilaterally) GI/Abdominal exam: Present: soft, hyperactive bowel sounds, other (Mild generalized abdominal tenderness). Absent: distended, guarding, rebound Extremities exam: Absent: tenderness, pedal edema, calf tenderness Neurological exam: Present: alert, oriented X3. Absent: motor sensory deficit Psychiatric exam: Present: normal affect, normal mood Skin exam: Present: warm, dry, intact, normal color Course Vital Signs 03/03/21 03/03/21 16:36 19:30 Temperature 98.1 F Pulse Rate 76 73 Respiratory 20 18 Rate Blood Pressure 159/72 168/73 O2 Sat by Pulse 95 92 L Oximetry - Reevaluation(s) Reevaluation #1: 03/03/21 20:24 Patient states that her symptoms have improved with ED treatment. Patient denies development of any new symptoms while in the ED. Patient has not had any vomiting while in the ED. Patient remains alert and breathing comfortably. Patient and daughter are aware the patient's test results, and they both agree with hospital admission at this time. 03/03/21 20:29 Case, H&P, test results and ED management thus far were discussed with Dr. Catherine. He accepts hospital admission. He recommends cardiology consultation for recommendations on anticoagulation. He has no further recommendations at this time. 03/03/21 20:32 Case, H&P, test results, ED management thus far and my discussion with Dr. Catherine as above were discussed with Dr. Hess (cardiology). He recommends heparin anticoagulation. He has no further recommendations at this time. EKG Findings - EKG Comments: EKG Findings:: 1650: Normal sinus rhythm, ventricular rate of 74 bpm, no ectopy, normal WV interval, QRS duration of 138 ms, normal QT interval, left bundle branch block, no significant change when compared to 01/21/2021 EKG. 1836: Normal sinus rhythm, ventricular rate of 74 bpm, no ectopy, normal WV interval, QRS duration of 138 ms, normal QT interval, left bundle branch block, no sign ificant change from initial EKG Medical Decision Making - Medical Decision Making Given the patient's reported nausea/vomiting and abdominal pain, and given her negative CT abdomen/pelvis and upward trending troponins, will admit the patient to the hospital for serial troponins, cardiac monitoring, heparin anticoagulation and cardiology consultation. Patient's EKG is unchanged from prior. Dr. Catherine has accepted hospital admission. Dr. Hess (cardiology) was consulted from the ED. - Lab Data Result diagrams: 03/03/21 16:56 03/03/21 16:56 Lab Results 03/03/21 03/03/21 03/03/21 Range/Units 16:56 16:56 16:56 WBC 9.5 (3.8-10.6) k/uL RBC 4.48 (3.80-5.40) m/uL Hgb 11.7 D (11.4-16.0) gm/dL Hct 35.7 (34.0-46.0) % MCV 79.6 L D (80.0-100.0) fL MCH 26.0 (25.0-35.0) pg MCHC 32.7 (31.0-37.0) g/dL RDW 14.4 (11.5-15.5) % Plt Count 419 (150-450) k/uL MPV 6.9 Neutrophils % 81 % Lymphocytes % 7 % Monocytes % 4 % Eosinophils % 6 % Basophils % 0 % Neutrophils # 7.7 (1.3-7.7) k/uL Lymphocytes # 0.7 L (1.0-4.8) k/uL Monocytes # 0.3 (0-1.0) k/uL Eosinophils # 0.6 (0-0.7) k/uL Basophils # 0.0 (0-0.2) k/uL Hypochromasia Slight Poikilocytosis Slight PT (9.0-12.0) sec INR (<1.2) APTT (22.0-30.0) sec Sodium 137 (137-145) mmol/L Potassium 3.9 (3.5-5.1) mmol/L Chloride 104 (98-107) mmol/L Carbon Dioxide 23 (22-30) mmol/L Anion Gap 10 mmol/L BUN 17 (7-17) mg/dL Creatinine 0.96 (0.52-1.04) mg/dL Est GFR (CKD-EPI)AfAm 68 (>60 ml/min/1.73 sqM) Est GFR (CKD-EPI)NonAf 59 (>60 ml/min/1.73 sqM) Glucose 154 H (74-99) mg/dL Calcium 9.7 (8.4-10.2) mg/dL Total Bilirubin 0.4 (0.2-1.3) mg/dL AST 32 (14-36) U/L ALT 31 (4-34) U/L Alkaline Phosphatase 137 H (38-126) U/L Troponin I (0.000-0.034) ng/mL Total Protein 6.7 (6.3-8.2) g/dL Albumin 4.0 (3.5-5.0) g/dL Lipase 66 (23-300) U/L Urine Color Yellow Urine Appearance Clear (Clear) Urine pH 5.5 (5.0-8.0) Ur Specific Ramsay 1.017 (1.001-1.035) Urine Protein Trace H (Negative) Urine Glucose (UA) Negative (Negative) Urine Ketones Negative (Negative) Urine Blood Negative (Negative) Urine Nitrite Negative (Negative) Urine Bilirubin Negative (Negative) Urine Urobilinogen <2.0 (<2.0) mg/dL Ur Leukocyte Esterase Negative (Negative) 03/03/21 03/03/21 03/03/21 Range/Units 16:56 16:56 19:09 WBC (3.8-10.6) k/uL RBC (3.80-5.40) m/uL Hgb (11.4-16.0) gm/dL Hct (34.0-46.0) % MCV (80.0-100.0) fL MCH (25.0-35.0) pg MCHC (31.0-37.0) g/dL RDW (11.5-15.5) % Plt Count (150-450) k/uL MPV Neutrophils % % Lymphocytes % % Monocytes % % Eosinophils % % Basophils % % Neutrophils # (1.3-7.7) k/uL Lymphocytes # (1.0-4.8) k/uL Monocytes # (0-1.0) k/uL Eosinophils # (0-0.7) k/uL Basophils # (0-0.2) k/uL Hypochromasia Poikilocytosis PT 10.4 (9.0-12.0) sec INR 1.0 (<1.2) APTT 18.4 L (22.0-30.0) sec Sodium (137-145) mmol/L Potassium (3.5-5.1) mmol/L Chloride (98-107) mmol/L Carbon Dioxide (22-30) mmol/L Anion Gap mmol/L BUN (7-17) mg/dL Creatinine (0.52-1.04) mg/dL Est GFR (CKD-EPI)AfAm (>60 ml/min/1.73 sqM) Est GFR (CKD-EPI)NonAf (>60 ml/min/1.73 sqM) Glucose (74-99) mg/dL Calcium (8.4-10.2) mg/dL Total Bilirubin (0.2-1.3) mg/dL AST (14-36) U/L ALT (4-34) U/L Alkaline Phosphatase (38-126) U/L Troponin I 0.037 H* 0.044 H* (0.000-0.034) ng/mL Total Protein (6.3-8.2) g/dL Albumin (3.5-5.0) g/dL Lipase (23-300) U/L Urine Color Urine Appearance (Clear) Urine pH (5.0-8.0) Ur Specific Ramsay (1.001-1.035) Urine Protein (Negative) Urine Glucose (UA) (Negative) Urine Ketones (Negative) Urine Blood (Negative) Urine Nitrite (Negative) Urine Bilirubin (Negative) Urine Urobilinogen (<2.0) mg/dL Ur Leukocyte Esterase (Negative) - Radiology Data CT abdomen/pelvis with IV contrast: No definite acute intra-abdominal process. (See radiologist's report for full list of incidental findings.) Disposition Clinical Impression: Abdominal pain, Nausea and vomiting, Elevated troponin Disposition: ADMITTED IP TO THIS [facility] Condition: Stable Is patient prescribed a controlled substance at d/c from ED?: No Referrals: Brian Foster DO [Primary Care Provider] - 1-2 days Time of Disposition: 20:38
[2021-03-03] MEDS ORDERED: ONDANSETRON 4 MG/2 ML VIAL IVP STA ×2 (16:53→19:03)
[2021-03-03] MEDS ORDERED: SODIUM CHLORIDE 0.9% 500 ML 500 ML IV STA (16:53)
[2021-03-03 17:33] LABS: Basophils % (A) 0 %; Calcium 9.7 mg/dL (8.4-10.2); Eosinophils # (A) 0.6 k/uL (0-0.7); Eosinophils % (A) 6 %; HCT 35.7 % (34.0-46.0); Hypochromasia Slight; Lymphocytes # (A) 0.7 k/uL (1.0-4.8); Lymphocytes % (A) 7 %; MCHC 32.7 g/dL (31.0-37.0); Mean Platelet Volume 6.9; Monocytes # (A) 0.3 k/uL (0-1.0); Monocytes % (A) 4 %; Neutrophils # (A) 7.7 k/uL (1.3-7.7); Neutrophils % (A) 81 %; Platelet Count 419 k/uL (150-450); Poikilocytosis Slight; Potassium 3.9 mmol/L (3.5-5.1); RBC 4.48 m/uL (3.80-5.40); RDW 14.4 % (11.5-15.5); Total Bilirubin 0.4 mg/dL (0.2-1.3); Total Protein 6.7 g/dL (6.3-8.2); WBC 9.5 k/uL (3.8-10.6)
[2021-03-03 17:35] LABS: Prothrombin Time 10.4 sec (9.0-12.0)
[2021-03-03 17:36] LABS: HGB 11.7 gm/dL (11.4-16.0); MCV 79.6 fL (80.0-100.0)
[2021-03-03 17:41] LABS: Partial Thromboplastin Time 18.4 sec (22.0-30.0)
[2021-03-03 18:26] LABS: Appearance,Urine Clear (Clear); Bilirubin,Urine Negative (Negative); Blood,Urine Negative (Negative); Color,Urine Yellow; Glucose,Urine (UA) Negative (Negative); Ketones,Urine Negative (Negative); Leukocyte Esterase,Urine Negative (Negative); Nitrite,Urine Negative (Negative); PH, Urine 5.5 (5.0-8.0); Protein,Urine Trace (Negative); Specific Gravity,Urine 1.017 (1.001-1.035); Urobilinogen,Urine <2.0 mg/dL (<2.0)
--- NOTE | 2021-03-03 18:50 | CT ---
EXAMINATION TYPE: CT abdomen pelvis w con DATE OF EXAM: 03/03/2021 COMPARISON: None available HISTORY: nausea, vomiting CT DLP: 1386.8 mGycm. Automated Exposure Control for Dose Reduction was Utilized. TECHNIQUE: Multiple contiguous axial CT images of the abdomen and pelvis were obtained from the lung bases through the pubic symphysis with IV Contrast, patient injected with 80cc mL of Isovue 300. 2-D sagittal and coronal reformatted images were obtained. FINDINGS: Small bilateral pleural effusions, right greater than left. Liver, spleen, pancreas, and bilateral adrenal glands have an unremarkable enhanced appearance. Gallbladder is absent with mildly prominent intrahepatic and extrahepatic biliary ducts likely due to postcholecystectomy state. Kidney is asymmetrically larger than the left. Mildly hyperdense left renal cyst which may represent a cyst complicated by proteinaceous or hemorrhagic material measuring 11 mm. No renal or ureteral lew culi. Urinary bladder appears underdistended. Uterus is present. No adnexal masses. No free fluid. Visualized bowel is of normal caliber without evidence of obstruction. No significant mesenteric infl ammation. Moderate amount of retained stool throughout the colon. Postsurgical changes of the bowel t he anterior pelvis. Scattered colonic diverticula without adjacent inflammatory changes. Appendix is not definitively visualized. No free air. Severe atherosclerotic calcifications of the abdominal aorta with bilateral common iliac arteries wit hout aneurysm. Dense atherosclerotic calcifications at the origins of the mesenteric vessels. No intr a-abdominal or retroperitoneal lymphadenopathy. Subcutaneous soft tissues appear unremarkable. Multil evel degenerative changes of the thoracolumbar spine with grade 1 anterolisthesis of L4 on L5. IMPRESSION: 1. No definite acute intra-abdominal process. 2. Severe atherosclerotic aspirations of the abdominal aorta with dense calcifications at the origins of the great vessels. No CT evidence of bowel ischemia. 3. Colonic diverticulosis without evidence of diverticulitis. 4. Grade 1 anterolisthesis of L4 on L5. 5. Hyperdense left renal lesion which likely represents a cyst complicated by proteinaceous or hemorr hagic material. This can be confirmed with MRI. 6. Small bilateral pleural effusions.
[2021-03-03] MEDS ORDERED: MORPHINE SULFATE 4 MG/ML SYRINGE IVP STA (19:03)
[2021-03-03] MEDS ORDERED: ASPIRIN 81 MG PO STA (20:26)
[2021-03-03] MEDS ORDERED: HEPARIN SODIUM 1,000 UN/ML (10ML VL) IV ONE (20:33)
[2021-03-03] MEDS ORDERED: HEPARIN SODIUM 1,000 UN/ML (10ML VL) IV PRN (20:33)
[2021-03-03] MEDS ORDERED: HEPARIN SOD,PORK IN 0.45% NACL 25,000 UNIT in 0.45% NACL 1 250ML.BAG IV SCH (20:45)
[2021-03-03] MEDS: ATORVASTATIN 40 MG TAB PO SCH (22:02)
[2021-03-03] MEDS: ALPRAZolam 1 MG TAB PO SCH (22:02)
[2021-03-03] MEDS: AMITRIPTYLINE HCL 10 MG TAB PO SCH (23:26)
[2021-03-03] MEDS: METOPROLOL TARTRATE 12.5 MG TAB PO SCH (23:26)
[2021-03-03] MEDS: buPROPion 75 MG TAB PO SCH (23:26)
[2021-03-03] MEDS: methIMAzole 5 MG TAB PO SCH (23:27)
--- NOTE | 2021-03-04 01:14 | P.HPIM ---
History of Present Illness H&P Date: 03/03/21 The patient is 75-year-old female with a PMH of coronary artery disease status post CABG 5 weeks ago, hypertension, hyperlipidemia, breast cancer status post right mastectomy, who presented to the emergency room with complaints of nausea, vomiting, and abdominal pain. The patient reports that she has had almost yearly bouts of similar pain, over the past 10 years since she underwent a bowel surgery. The patient reports that she was normally found to have a partial small bowel obstruction or an ileus and conservative measures would improve her pain. She notes that her pain started earlier today, gradually worsened, 8 out of 10 in maximum in intensity, diffuse throughout the abdomen, nonradiating, with no clear alleviating or exacerbating features. The patient reports nausea with one episode of vomitus and significant dry heaving throughout the day. She denied chest discomfort, shortness of breath, or palpitations. She also denied diarrhea, fever, chills, cough. In the emergency room, a CT abdomen and pelvis was unremarkable with EKG showing normal sinus rhythm at 74 bpm with left bundle branch block. Laboratory evaluation was remarkable for troponin of 0.037 and subsequently 0.044. A urinalysis was unremarkable. Review of systems: Pertinent positives and negatives as discussed in HPI, a complete review of systems was performed and all other systems are negative. Physical examination: General: non toxic, no distress, appears at stated age, normal weight Derm: no unusual rashes/lesions no unusual ecchymoses, warm, dry Head: atraumatic, normocephalic, symmetric Eyes: EOMI, no lid lag, anicteric sclera, pupils equal round reactive to light ENT: Nose and ears atraumatic, no thrush, no pharyngeal erythema Neck: No thyromegaly, no cervical lymphadenopathy, trachea midline, supple Mouth: no lip lesion, mucus membranes moist Cardiovascular: S1S2 reg, no murmur, positive posterior tibial pulse bilateral, no edema, capillary refill less than 2 seconds, midline sternal incision healing well Lungs: CTA bilateral, no rhonchi, no rales , no accessory muscle use Abdominal: soft, nontender to palpation, no guarding, no appreciable organomegaly, normal bowel sounds Ext: no gross muscle atrophy, muscle strength 5 out of 5 in all 4 extremities grossly, no contractures, Neuro: CN II-XI grossly intact, light touch intact all 4 extremities, finger to nose within normal limits, Psych: Alert, oriented, appropriate affect Assessment/plan Rule out ACS in patient with atypical symptoms including nausea and abdominal pain w/ elevated troponin levels -Continue to trend troponin -Continue with heparin infusion -Cardiology consult -Cardiac monitoring -Continue with aspirin -Pain control Chronic conditions: Hypertension, hyperlipidemia -Continue with home meds DVT prophylaxis -Heparin infusion The patient is admitted with an anticipated less than 2 midnight stay for evaluation of ACS CODE STATUS: Full Code Discussed with: Patient, Daughter Anticipated discharge date: in am Anticipated discharge place: Home Past Medical History Past Medical History: Cancer, Hyperlipidemia, Hypertension, Osteoarthritis (OA) Additional Past Medical History / Comment(s): Colostomy bag with removal History of Any Multi-Drug Resistant Organisms: None Reported Past Surgical History: Appendectomy, Bladder Surgery, Bowel Resection, Breast Surgery, Cholecystectomy, Coronary Bypass/CABG, Hysterectomy, Orthopedic Surgery, Tubal Ligation Additional Past Surgical History / Comment(s): cataractsurgery x2 with lens implants, masectomy on right breast, bowel resection with colostomy and reversal, bladder suspension, left knee replacement, skin cancer removed from right ear Past Anesthesia/Blood Transfusion Reactions: No Reported Reaction Past Psychological History: Depression Smoking Status: Former smoker Past Alcohol Use History: None Reported Past Drug Use History: None Reported - Past Family History Father Family Medical History: AFIB, Congestive Heart Failure (CHF) Mother Family Medical History: Cancer Additional Family Medical History / Comment(s): breast cancer with mets Medications and Allergies Home Medications Medication Instructions Recorded Confirmed Type ALPRAZolam [Xanax] 1 mg PO DAILY@0800,0 01/21/21 03/03/21 History Amitriptyline HCl [Elavil] 20 mg PO DAILY 01/21/21 03/03/21 History Cholecalciferol [Vitamin D3 (25 50 mcg PO DAILY@79901/21/21 03/03/21 History Mcg = 1000 Iu)] Rosuvastatin [Crestor] 20 mg PO HS@219901/21/21 03/03/21 History Sertraline [Zoloft] 100 mg PO DAILY@79901/21/21 03/03/21 History buPROPion [Wellbutrin] 75 mg PO DAILY@79901/21/21 03/03/21 History Acetaminophen Tab [Tylenol] 650 mg PO Q4HR PRN tab 01/30/21 03/03/21 Rx Aspirin 325 mg PO DAILY tab 01/30/21 03/03/21 Rx Clopidogrel [Plavix] 75 mg PO DAILY tab 01/30/21 03/03/21 Rx Melatonin 5 mg PO HS tablet 01/30/21 03/03/21 Rx Metoprolol Tartrate [Lopressor] 12.5 mg PO BID tab 01/30/21 03/03/21 Rx Pantoprazole [Protonix] 40 mg PO AC-BRKFST tablet. 01/30/21 03/03/21 Rx amLODIPine [Norvasc] 5 mg PO DAILY@1200 tab 01/30/21 03/03/21 Rx methIMAzole [Tapazole] 15 mg PO DAILY tab 01/30/21 03/03/21 Rx Allergies Allergy/AdvReac Type Severity Reaction Status Date / Time No Known Allergies Allergy Verified 03/03/21 17:41 Physical Exam Vitals: Vital Signs Temp Pulse Resp BP Pulse Ox 03/03/21 21:30 70 18 169/68 92 L 03/03/21 19:30 73 18 168/73 92 L 03/03/21 16:36 98.1 F 76 20 159/72 95 Intake and Output 03/03/21 03/03/21 03/04/21 14:59 22:59 06:59 Other: Weight 66.678 kg Results CBC & Chem 7: 03/03/21 16:56 03/03/21 16:56 Labs: Abnormal Lab Results - Last 24 Hours (Table) 03/03/21 03/03/21 03/03/21 Range/Units 16:56 16:56 16:56 MCV 79.6 L D (80.0-100.0) fL Lymphocytes # 0.7 L (1.0-4.8) k/uL APTT (22.0-30.0) sec Glucose 154 H (74-99) mg/dL Alkaline Phosphatase 137 H (38-126) U/L Troponin I (0.000-0.034) ng/mL Urine Protein Trace H (Negative) 03/03/21 03/03/21 03/03/21 Range/Units 16:56 16:56 19:09 MCV (80.0-100.0) fL Lymphocytes # (1.0-4.8) k/uL APTT 18.4 L (22.0-30.0) sec Glucose (74-99) mg/dL Alkaline Phosphatase (38-126) U/L Troponin I 0.037 H* 0.044 H* (0.000-0.034) ng/mL Urine Protein (Negative)
[2021-03-04 05:27] LABS: Basophils % (A) 0 %; Eosinophils # (A) 0.7 k/uL (0-0.7); Eosinophils % (A) 8 %; HCT 33.4 % (34.0-46.0); HGB 10.8 gm/dL (11.4-16.0); Hypochromasia Moderate; Lymphocytes # (A) 1.3 k/uL (1.0-4.8); Lymphocytes % (A) 14 %; MCH 26.8 pg (25.0-35.0); MCHC 32.3 g/dL (31.0-37.0); MCV 83.1 fL (80.0-100.0); Mean Platelet Volume 7.3; Monocytes # (A) 0.4 k/uL (0-1.0); Monocytes % (A) 5 %; Neutrophils # (A) 6.3 k/uL (1.3-7.7); Neutrophils % (A) 71 %; Platelet Count 361 k/uL (150-450); Poikilocytosis Slight; RBC 4.02 m/uL (3.80-5.40); RDW 14.3 % (11.5-15.5); WBC 8.9 k/uL (3.8-10.6)
[2021-03-04 05:35] LABS: Albumin 3.3 g/dL (3.5-5.0); Calcium 9.3 mg/dL (8.4-10.2); Potassium 3.6 mmol/L (3.5-5.1); Total Bilirubin 0.3 mg/dL (0.2-1.3); Total Protein 5.8 g/dL (6.3-8.2)
[2021-03-04 05:47] LABS: Partial Thromboplastin Time 41.6 sec (22.0-30.0); Prothrombin Time 10.9 sec (9.0-12.0)
[2021-03-04] MEDS ORDERED: methIMAzole 5 MG TAB PO SCH (09:00)
[2021-03-04] MEDS ORDERED: AMITRIPTYLINE HCL 10 MG TAB PO SCH (09:00)
[2021-03-04] MEDS: PANTOPRAZOLE 40 MG TABLET PO SCH (11:58)
[2021-03-04] MEDS: CLOPIDOGREL 75 MG TAB PO SCH (11:58)
[2021-03-04] MEDS: FUROSEMIDE 20 MG TAB PO SCH (11:58)
[2021-03-04] MEDS: ASPIRIN 325 MG TAB PO SCH (11:59)
[2021-03-04] MEDS: buPROPion 75 MG TAB PO SCH ×2 (11:59→21:28)
[2021-03-04] MEDS: ALPRAZolam 1 MG TAB PO SCH ×2 (11:59→21:28)
[2021-03-04] MEDS ORDERED: amLODIPine 5 MG TAB PO SCH (12:00)
[2021-03-04] MEDS: METOPROLOL TARTRATE 12.5 MG TAB PO SCH ×2 (12:04→21:27)
[2021-03-04] MEDS: SERTRALINE 100 MG TAB PO SCH (12:09)
--- NOTE | 2021-03-04 12:31 | P.PN ---
Subjective Patient was seen and evaluated by me this morning. She denies any chest pain or abdominal pain. No nausea. Objective - Vital Signs Vital signs: Vital Signs Temp 98 F 03/04/21 04:58 Pulse 60 03/04/21 04:58 Resp 18 03/04/21 04:58 BP 108/63 03/04/21 04:58 Pulse Ox 91 L 03/04/21 04:58 Intake & Output 03/03/21 03/04/21 03/04/21 18:59 06:59 18:59 Intake Total 64.275 Balance 64.275 Weight 66.678 kg Intake: Intake, IV Titration 64.275 Amount Heparin Sod,Pork in 0.45% 64.275 NaCl 25,000 unit In 0.45 % NaCl 1 250ml.bag @ 12 UNITS/KG/HR 8.001 mls/hr IV .Q24H [facility] Rx#: [id number] - Exam General: The patient is awake and alert, in no distress Eye: there is normal conjunctiva bilaterally. Neck: The neck is supple, there is no JVD. Cardiovascular: Normal S1-S2, no S3-S4, no murmurs. Respiratory: Lungs clear to auscultation bilaterally Gastrointestinal: Abdomen is soft, nontender Musculoskeletal: There is no pedal edema. Neurological:. Speech is normal. Skin: Skin is warm and dry - Labs CBC & Chem 7: 03/04/21 04:25 03/04/21 04:25 Labs: Abnormal Lab Results - Last 24 Hours (Table) 03/03/21 03/03/21 03/03/21 Range/Units 16:56 16:56 16:56 Hgb (11.4-16.0) gm/dL Hct (34.0-46.0) % MCV 79.6 L D (80.0-100.0) fL Lymphocytes # 0.7 L (1.0-4.8) k/uL APTT (22.0-30.0) sec Glucose 154 H (74-99) mg/dL Alkaline Phosphatase 137 H (38-126) U/L Troponin I (0.000-0.034) ng/mL Total Protein (6.3-8.2) g/dL Albumin (3.5-5.0) g/dL Urine Protein Trace H (Negative) 03/03/21 03/03/21 03/03/21 Range/Units 16:56 16:56 19:09 Hgb (11.4-16.0) gm/dL Hct (34.0-46.0) % MCV (80.0-100.0) fL Lymphocytes # (1.0-4.8) k/uL APTT 18.4 L (22.0-30.0) sec Glucose (74-99) mg/dL Alkaline Phosphatase (38-126) U/L Troponin I 0.037 H* 0.044 H* (0.000-0.034) ng/mL Total Protein (6.3-8.2) g/dL Albumin (3.5-5.0) g/dL Urine Protein (Negative) 03/03/21 03/04/21 03/04/21 Range/Units 23:05 04:25 04:25 Hgb 10.8 L (11.4-16.0) gm/dL Hct 33.4 L (34.0-46.0) % MCV (80.0-100.0) fL Lymphocytes # (1.0-4.8) k/uL APTT 41.6 H (22.0-30.0) sec Glucose (74-99) mg/dL Alkaline Phosphatase (38-126) U/L Troponin I 0.045 H* (0.000-0.034) ng/mL Total Protein (6.3-8.2) g/dL Albumin (3.5-5.0) g/dL Urine Protein (Negative) 03/04/21 Range/Units 04:25 Hgb (11.4-16.0) gm/dL Hct (34.0-46.0) % MCV (80.0-100.0) fL Lymphocytes # (1.0-4.8) k/uL APTT (22.0-30.0) sec Glucose 102 H (74-99) mg/dL Alkaline Phosphatase (38-126) U/L Troponin I (0.000-0.034) ng/mL Total Protein 5.8 L (6.3-8.2) g/dL Albumin 3.3 L (3.5-5.0) g/dL Urine Protein (Negative) Assessment and Plan Assessment: This is a 75-year-old female with past medical history noted below who presented to the emergency room complaining of nausea, vomiting, and abdominal pain. Patient was evaluated in the ER and a computed tomography scan of the abdomen and pelvis was unremarkable for any acute findings. Patient was noted to have a slightly elevated troponin and was admitted to the hospital for further evaluation. 1. Troponin elevation, most likely non-thrombotic troponin leak. Repeat EKG showed no acute ischemic changes. Echocardiogram done and awaiting report. Also waiting cardiology evaluation. Continue telemetry monitoring. 2. Chronic medical problems: Hypertension, hyperlipidemia, history of coronary artery disease with prior CABG, history of breast cancer status post right mastectomy
--- NOTE | 2021-03-04 12:54 | ECHOF ---
Referral Reason:repeat echo LV function MEASUREMENTS -------- HEIGHT: 710322.4 cm WEIGHT: 0.0 kg BP: MV E Thomas: 0.74 m/s MV DecT: 320 ms MV A Thomas: 0.98 m/s MV E/A Ratio: 0.75 RAP: 5.00 mmHg RVSP: 34.27 mmHg FINDINGS -------- Sinus rhythm. Pt had CABG x3 :02/09P Echo done 01/22/21 Limited Echo for LV Function. Overall left ventricular systolic function is moderate-severely impaired with, an EF between 30 - 35 %. Apical anterior LV wall motion is normal. Apical lateral LV wall motion is normal. Apical in ferior LV wall motion is normal. Apical septum LV wall motion is normal. [place] [employer]. CONCLUSIONS -------- 1. Overall left ventricular systolic function is moderate-severely impaired with, an EF between 30 - 35 %. 2. Apical anterior LV wall motion is normal. 3. Apical lateral LV wall motion is normal. 4. Apical inferior LV wall motion is normal. 5. Apical septum LV wall motion is normal. 6. [place] [employer]. SOCIAL MEDIA MANAGER: Leslie Jimenez RDCS
[2021-03-04] MEDS ORDERED: HEPARIN SODIUM,PORCINE/PF 5,000 UNIT/0.5 ML SYRINGE SQ ONE (13:39)
--- NOTE | 2021-03-04 14:17 | P.CRDCN ---
History of Present Illness History of present illness: This is a pleasant 75-year-old female past medical history significant for hypertension, hyperlipidemia, former nicotine dependence, hyperthyroidism, recent NSTEMI, coronary artery disease s/p 3 vessel CABG on 01/25/[address] Flores, breast cancer status post right mastectomy with chemotherapy approximately 25 years ago without radiation, colostomy for bowel rest status post reversal . She follows with Dr. Hess she has an appointment tomorrow 03/05 for a stress test. We have been asked to see in consultation for elevated troponin. Patient is seen and examined at bedside. She states she has had nausea, vomiting, constipation and abdominal pain. She states she had 6 episodes of non-bloody, non-bowel emesis, dry heaving. Since her colostomy and reverseal years ago every 1-2 years she sometimes exhibits constipation and this makes her nausea and sometimes has vomiting. She states usually she is given some type of stool softeners by GI and this usually resolves. She states she has been passing flatus and bowel movements but her bowel movements are small. She denies chest pain, shortness of breath, lightheadedness, dizziness, syncope, or diaphoresis. She states she has been in cardiac rehab and doing well. Since her CABG last month she has had no complications. She denies any symptoms of orthopnea or PND. DIAGNOSTICS EKG reveals sinus rhythm HR 74, left bundle branch block, ST-T changes similar to EKG in 01/21/21 Telemetry tracings patient maintainin sinus mechanism Laboratory reviewed, WBC 3.9, hemoglobin 10.8, platelets 261, sodium 138, potassium 3.6, BUN 14, serum creatinine 1.0, troponin 0.03, and 0.04 x 2 REVIEW OF SYSTEMS At the time of my exam: CONSTITUTIONAL: Denies fever or chills. CARDIOVASCULAR: Denies chest pain, shortness of breath, Denies orthopnea, PND or palpitations. RESPIRATORY: Denies cough. GASTROINTESTINAL: +abdominal pain, + constipation, +nausea + vomiting. MUSCULOSKELETAL: Denies myalgias. NEUROLOGIC: Denies numbness, tingling, headacbe or weakness. ENDOCRINE: Denies fatigue, weight change, polydipsia or polyurina. GENITOURINARY: Denies burning, hematuria or urgency with micturation. HEMATOLOGIC: Denies history of anemia or bleeding. PHYSICAL EXAMINATION Blood pressure 108/65 heart rate 75 afebrile and maintaining oxygen saturation on room air CONSTITUTIONAL: No acute distress. Appears comfortable. HEENT: Head is normocephalic. Pupils are equal, round. Sclerae anicteric. Mucous membranes of the mouth are moist. No JVD. No carotid bruit. CHEST EXAMINATION: Lungs are clear to auscultation. No chest wall tenderness is noted on palpation or with deep breathing. HEART EXAMINATION: Regular rate and rhythm. S1, S2 heard. No murmurs, gallops or rub. ABDOMEN: Soft. Tender to palpation in center of abdomen. Positive bowel sounds. EXTREMITIES: 2+ peripheral pulses, no lower extremity edema and no calf tenderness. SKIN: intact NEUROLOGIC EXAMINATION: Patient is awake, alert and oriented x3. ASSESSMENT Nausea, Vomiting, Abdominal Pain Elevated troponin, do not think this is indicative of acute coronary syndrome, patient without chest pain, no ischemia noted on EKG. History of colostomy for bowel rest status post reversal History of breast cancer status post right mastectomy with chemotherapy approximately 25 years ago without radiation, Coronary artery disease s/p 01/25/21 CABG 3 with WESLEY to the LAD, left radial artery graft to the obtuse marginal coronary artery, reverse saphenous vein graft to the posterior lateral branch of the right coronary artery, Exclusion of the left atrial appendage History of hypertension Hyperlipidemia Former tobacco smoker PLAN Patient's symptoms appear to be more GI related We will Obtain echocardiogram Continue home cardiac medications with aspirin, amlodipine, statin, Plavix, metoprolol tartrate and PO Lasix Further recommendations based on clinical course. Nurse Practitioner note has been reviewed, I agree with a documented findings and plan of care. Patient was seen and examined. Past Medical History Past Medical History: Cancer, Hyperlipidemia, Hypertension, Osteoarthritis (OA) Additional Past Medical History / Comment(s): Colostomy bag with removal History of Any Multi-Drug Resistant Organisms: None Reported Past Surgical History: Appendectomy, Bladder Surgery, Bowel Resection, Breast Surgery, Cholecystectomy, Coronary Bypass/CABG, Hysterectomy, Orthopedic Surgery, Tubal Ligation Additional Past Surgical History / Comment(s): cataractsurgery x2 with lens implants, masectomy on right breast, bowel resection with colostomy and reversal, bladder suspension, left knee replacement, skin cancer removed from right ear Past Anesthesia/Blood Transfusion Reactions: No Reported Reaction Past Psychological History: Depression Smoking Status: Former smoker Past Alcohol Use History: None Reported Past Drug Use History: None Reported - Past Family History Father Family Medical History: AFIB, Congestive Heart Failure (CHF) Mother Family Medical History: Cancer Additional Family Medical History / Comment(s): breast cancer with mets Medications and Allergies Home Medications Medication Instructions Recorded Confirmed Type ALPRAZolam [Xanax] 1 mg PO DAILY@0800,2200 01/21/21 03/03/21 History Amitriptyline HCl [Elavil] 20 mg PO DAILY 01/21/21 03/03/21 History Cholecalciferol [Vitamin D3 (25 50 mcg PO DAILY@0800 01/21/21 03/03/21 History Mcg = 1000 Iu)] Rosuvastatin [Crestor] 20 mg PO HS@2200 01/21/21 03/03/21 History Sertraline [Zoloft] 100 mg PO DAILY@0800 01/21/21 03/03/21 History buPROPion [Wellbutrin] 75 mg PO DAILY@0800 01/21/21 03/03/21 History Acetaminophen Tab [Tylenol] 650 mg PO Q4HR PRN tab 01/30/21 03/03/21 Rx Aspirin 325 mg PO DAILY tab 01/30/21 03/03/21 Rx Clopidogrel [Plavix] 75 mg PO DAILY tab 01/30/21 03/03/21 Rx Melatonin 5 mg PO HS tablet 01/30/21 03/03/21 Rx Metoprolol Tartrate [Lopressor] 12.5 mg PO BID tab 01/30/21 03/03/21 Rx Pantoprazole [Protonix] 40 mg PO [id number] tablet. 01/30/21 03/03/21 Rx amLODIPine [Norvasc] 5 mg PO DAILY@1200 tab 01/30/21 03/03/21 Rx methIMAzole [Tapazole] 15 mg PO DAILY tab 01/30/21 03/03/21 Rx Allergies Allergy/AdvReac Type Severity Reaction Status Date / Time No Known Allergies Allergy Verified 03/03/21 17:41 Physical Exam Vitals: Vital Signs Temp Pulse Resp BP Pulse Ox 03/04/21 04:58 98 F 60 18 108/63 91 L 03/04/21 00:00 68 18 134/66 92 L 03/03/21 21:30 70 18 169/68 92 L 03/03/21 19:30 73 18 168/73 92 L 03/03/21 16:36 98.1 F 76 20 159/72 95 Intake and Output 03/03/21 03/04/21 03/04/21 22:59 06:59 14:59 Intake Total 64.275 Balance 64.275 Intake: Intake, IV Titration 64.275 Amount Heparin Sod,Pork in 0.45% 64.275 NaCl 25,000 unit In 0.45 % NaCl 1 250ml.bag @ 12 UNITS/KG/HR 8.001 mls/hr IV .Q24H [facility] Rx#: [id number] Other: Weight 66.678 kg Results 03/04/21 04:25 03/04/21 04:25 Cardiac Enzymes 03/03/21 03/03/21 03/03/21 Range/Units 16:56 16:56 19:09 AST 32 (14-36) U/L Troponin I 0.037 H* 0.044 H* (0.000-0.034) ng/mL 03/03/21 03/04/21 Range/Units 23:05 04:25 AST 27 (14-36) U/L Troponin I 0.045 H* (0.000-0.034) ng/mL Coagulation 03/03/21 03/04/21 Range/Units 16:56 04:25 PT 10.4 10.9 (9.0-12.0) sec APTT 18.4 L 41.6 H (22.0-30.0) sec CBC 03/03/21 03/04/21 Range/Units 16:56 04:25 WBC 9.5 8.9 (3.8-10.6) k/uL RBC 4.48 4.02 (3.80-5.40) m/uL Hgb 11.7 D 10.8 L (11.4-16.0) gm/dL Hct 35.7 33.4 L (34.0-46.0) % Plt Count 419 361 (150-450) k/uL Comprehensive Metabolic Panel 03/03/21 03/04/21 Range/Units 16:56 04:25 Sodium 137 138 (137-145) mmol/L Potassium 3.9 3.6 (3.5-5.1) mmol/L Chloride 104 105 (98-107) mmol/L Carbon Dioxide 23 23 (22-30) mmol/L BUN 17 14 (7-17) mg/dL Creatinine 0.96 1.00 (0.52-1.04) mg/dL Glucose 154 H 102 H (74-99) mg/dL Calcium 9.7 9.3 (8.4-10.2) mg/dL AST 32 27 (14-36) U/L ALT 31 24 (4-34) U/L Alkaline Phosphatase 137 H 113 (38-126) U/L Total Protein 6.7 5.8 L (6.3-8.2) g/dL Albumin 4.0 3.3 L (3.5-5.0) g/dL Current Medications Generic Name Dose Route Start Last Admin Trade Name Freq PRN Reason Stop Dose Admin Alprazolam 1 mg 03/03/21 22:00 03/03/21 22:02 Alprazolam 1 Mg Tab PO 1 mg DAILY@0800,2200 JAZ Administration Amitriptyline HCl 20 mg 03/03/21 22:00 03/03/21 23:26 Amitriptyline Hcl 10 Mg Tab PO 20 mg DAILY@2200 J[facility] Administration Amlodipine Besylate 5 mg 03/04/21 12:00 Amlodipine 5 Mg Tab PO DAILY@1200 [facility] Atorvastatin Calcium 40 mg 03/03/21 22:00 03/03/21 22:02 Atorvastatin 40 Mg Tab PO 40 mg HS@2200 JAZ Administration Bupropion HCl 75 mg 03/03/21 21:15 03/03/21 23:26 Bupropion 75 Mg Tab PO 75 mg BID JAZ Administration Clopidogrel Bisulfate 75 mg 03/04/21 09:00 Clopidogrel 75 Mg Tab PO DAILY [facility] Furosemide 20 mg 03/04/21 09:00 Furosemide 20 Mg Tab PO DAILY [facility] Heparin Sodium (Porcine) 0 unit 03/03/21 20:33 03/04/21 06:07 Heparin Sodium 1,000 Un/Ml (10ml Vl) IV 1,666.77 unit PER PROTOCOL PRN Administration Low PTT Protocol Heparin Sodium/Sodium Chloride 250 mls @ 8.001 mls/hr 03/03/21 20:45 03/04/21 06:06 25,000 unit/ Sodium Chloride IV 14 units/kg/hr .Q24H [facility] 9.335 mls/hr Titration Protocol 12 UNITS/KG/HR Methimazole 15 mg 03/03/21 22:00 03/03/21 23:27 Methimazole 5 Mg Tab PO 15 mg DAILY@2200 [facility] Administration Metoprolol Tartrate 12.5 mg 03/03/21 21:00 03/03/21 23:26 Metoprolol Tartrate 12.5 Mg Tab PO 12.5 mg BID JAZ Administration Pantoprazole Sodium 40 mg 03/04/21 07:30 Pantoprazole 40 Mg Tablet PO -BRKT [facility] Sertraline HCl 100 mg 03/04/21 08:00 Sertraline 100 Mg Tab PO DAILY@0800 [facility] Intake and Output 03/03/21 03/04/21 03/04/21 22:59 06:59 14:59 Intake Total 64.275 Balance 64.275 Intake: Intake, IV Titration 64.275 Amount Heparin Sod,Pork in 0.45% 64.275 NaCl 25,000 unit In 0.45 % NaCl 1 250ml.bag @ 12 UNITS/KG/HR 8.001 mls/hr IV .Q24H [facility] Rx#: [id number] Other: Weight 66.678 kg 03/04/21 04:25 03/04/21 04:25
[2021-03-04] MEDS ORDERED: DOCUSATE 100 MG CAP PO PRN (16:16)
[2021-03-04] MEDS: AMITRIPTYLINE HCL 10 MG TAB PO SCH (21:27)
[2021-03-04] MEDS: methIMAzole 5 MG TAB PO SCH (21:28)
[2021-03-04] MEDS: ATORVASTATIN 40 MG TAB PO SCH (21:28)
[2021-03-05] MEDS: PANTOPRAZOLE 40 MG TABLET PO SCH (06:30)
[2021-03-05] MEDS: SERTRALINE 100 MG TAB PO SCH (09:14)
[2021-03-05] MEDS: CLOPIDOGREL 75 MG TAB PO SCH (09:14)
[2021-03-05] MEDS: ALPRAZolam 1 MG TAB PO SCH ×2 (09:14→22:03)
[2021-03-05] MEDS: ASPIRIN 325 MG TAB PO SCH (09:14)
[2021-03-05] MEDS: METOPROLOL TARTRATE 12.5 MG TAB PO SCH ×2 (09:14→19:49)
[2021-03-05] MEDS: FUROSEMIDE 20 MG TAB PO SCH ×2 (09:14→15:10)
[2021-03-05] MEDS: buPROPion 75 MG TAB PO SCH ×2 (10:22→22:03)
--- NOTE | 2021-03-05 12:24 | P.PN ---
<Poncho Payne - Last Filed: 03/05/21 13:12> Subjective Progress Note Date: 03/05/21 Hospital course: Patient is a 75-year-old female with a past medical history of CAD with recent CABG (triple bypass) on 01/25/21 on Plavix, hypertension, hyperlipidemia, and breast cancer status post right mastectomy in remission greater than 20 years. Patient presented to the emergency departmentwith complaints of nausea, vomiting, and epigastric pain. She was found to have elevated troponins status post her recent CABG. CT abdomen and pelvis negative for acute intra-abdominal process however revealing severe atherosclerotic aspirations of the abdominal aorta with dense calcifications at the origins of great vessels, colonic diverticulosis without evidence of diverticulitis, a grade 1 anterolisthesis of L4 on L5, hyperdense left renal lesion likely representing a cyst complicated by proteinaceous or hemorrhagic material, and small bilateral pleural effusions. EKG showing normal sinus rhythm at 74 bpm with a left bundle branch block. troponins elevated at0.037, 0.044, and 0.045. Echocardiogram: Showing a moderately to severely impaired EF of 30-35% with hypokinesis to apex this is significantly reduced from previous echocardiogram completed 01/22/21 which revealed an EF of 50-55%. Patient is admitted under our services and cardiology is consulted. cardiology recommending cardiac cath at this time, patient preferring to be more conservative. Plans for stress test tomorrow and if there are any questionable findings they will proceed with a cardiac cath. ProBNP resulting at 6110. Physical exam: Patient was seen and fully evaluated at the bedside this morning. Patient sitting upright in chair and reports feeling well this morning. She denies currently experiencing any chest pain, but does report mild shortness of breath worsening with exertion accompanied by a dry cough. Patient denies experiencing any further episodes of nausea or vomiting. Her echocardiogram completed yesterday did show a significant decrease in her ejection fraction which was previously 50-55% on 01/22/21 which has reduced to 30-35%. Patient diagnosed with acute systolic heart failure status post her cardiac bypass. Patient started on Lasix. Plans for stress test tomorrow a.m. Vital signs reviewed and stable. General: Nontoxic, no distress and appears stated age. Derm: Skin warm and dry, normal coloration for ethnicity. Head: Atraumatic, normocephalic and symmetric. Eyes: EOMs intact, no lid lag, and anicteric sclera Mouth: no lip lesions, mucus membranes moist Cardiovascular: regular rate and rhythm with normal S1S2, no murmur, positive posterior tibial pulses bilaterally, and cap refill < 2 seconds. No JVD, no lower extremity edema Lungs: Respirations even, regular, and unlabored on room air. Lungs CTA bilaterally, no rhonchi, no rales, no wheezing, and no accessory muscle usage. Abdominal: soft, nontender to palpation, no guarding, no appreciable organomegaly Ext: ROM intact. No gross muscle atrophy, no edema, no contractures Neuro: Speech clear, face symmetrical and CN II-XII grossly intact with no noted focal neuro deficits Psych: Alert and oriented to person, place, time, and situation. Appropriate and pleasant affect. Assessment and Plan of Care: Acute Systolic Heart Failure status post triple bypass 01/25/21, EF 30-35% Elevated troponin, likely non-thrombotic troponin leak, acute coronary event ruled out History of CAD with recent CABG -ProBNP 6110 -EKG showing normal sinus rhythm at 74 bpm with a left bundle branch block. troponins elevated at0.037, 0.044, and 0.045. Echocardiogram: Showing a moderately to severely impaired EF of 30-35% with hypokinesis to apex this is significantly reduced from previous echocardiogram completed 01/22/21 which revealed an EF of 50-55%. -Cardiology following, plans for stress test tomorrow -Continue daily aspirin, atorvastatin, Plavix, metoprolol and losartan -Telemetry monitoring -Daily weights -Lasix 20 mg twice daily. -heart healthy diet, nothing by mouth at midnight Hypertension -monitor vital signs and continue daily medication regimen with losartan and metoprolol Hyperlipidemia -continue daily medication regimen with atorvastatin 40 mg nightly. -Heart healthy diet CODE STATUS: Full code DVT prophylaxis: heparin Discussed with: patient and RN Anticipated discharge date: clinical course to determine Anticipated discharge place: home A total of 45 minutes was spent on the care of this complex patient more than 50% of the time was spent in counseling and care coordination. Objective - Vital Signs Vital signs: Vital Signs Temp 98.3 F 03/05/21 04:00 Pulse 69 03/05/21 04:00 Resp 16 03/05/21 04:00 BP 114/58 03/05/21 04:00 Pulse Ox 91 L 03/05/21 04:00 Intake & Output 03/04/21 03/05/21 03/05/21 18:59 06:59 18:59 Intake Total 270 10 Output Total 175 Balance 270 -165 Weight 67.313 kg 67.3 kg Intake: IV 10 10 Invasive Line 1 10 10 Oral 260 Output: Urine 175 Other: # Voids 1 - Labs CBC & Chem 7: 03/04/21 04:25 03/04/21 04:25 Labs: Abnormal Lab Results - Last 24 Hours (Table) 03/04/21 Range/Units 12:01 APTT 42.6 H (22.0-30.0) sec <Leny Awad A - Last Filed: 03/05/21 20:56> Objective - Vital Signs Vital signs: Vital Signs Temp 97.5 F L 03/05/21 16:45 Pulse 70 03/05/21 20:08 Resp 18 03/05/21 20:08 BP 139/64 03/05/21 20:08 Pulse Ox 92 L 03/05/21 20:08 Intake & Output 03/05/21 03/05/21 03/06/21 06:59 18:59 06:59 Intake Total 10 720 Output Total 175 150 Balance -165 570 Weight 67.3 kg 68 kg Intake: IV 10 Invasive Line 1 10 Oral 720 Output: Urine 175 150 Other: # Voids 1 - Labs CBC & Chem 7: 03/04/21 04:25 03/04/21 04:25 Assessment and Plan Assessment: Poncho Payne NP rendered care for this patient independently, reviewed the findings and plan as documented in the note above. I did not physically speak with or examine the patient on this date. Hyperthyroidism- Check TSH, on methimazole
--- NOTE | 2021-03-05 12:38 | P.PN ---
Subjective This is a pleasant 75-year-old female past medical history significant for hypertension, hyperlipidemia, former nicotine dependence, hyperthyroidism, recent NSTEMI (01/2021), coronary artery disease s/p 3 vessel CABG on 01/25/[address] Flores, breast cancer status post right mastectomy with chemotherapy approximately 25 years ago without radiation, colostomy for bowel rest status post reversal . She follows with Dr. Hess. She came in for GI type symptoms with a mild elevation in her troponin. Echocardiogram obtained revealed impaired LV systolic function with EF 30-35% with apical hypokinesia. She is seen and examined sitting up in the recliner chair in no acute distress. She denies chest pain. She is coughing that started as mostly dry yesterday but she is now bringing up some thick yellow sputum. She does have some shortness of breath when she is coughing. Blood pressure 123/58 heart rate 69 afebrile maintaining oxygen saturation on room air. NTproBNP 6110. GENERAL: Well-appearing, well-nourished and in no acute distress. NECK: Supple without JVD or thyromegaly. LUNGS: Breath sounds clear to auscultation bilaterally. Respiration equal and unlabored. No wheezes, rales or rhonchi. HEART: Regular rate and rhythm without murmurs, rubs or gallops. S1 and S2 heard. EXTREMITIES: Normal range of motion, no edema. No clubbing or cyanosis. Peripheral pulses intact. ASSESSMENT Epigastric pain Troponin leak of unclear significance. Acute systolic heart failure s/p CABG Coronary artery disease s/p 01/25/21 CABG 3 with WESLEY to the LAD, left radial artery graft to the obtuse marginal coronary artery, reverse saphenous vein graft to the posterior lateral branch of the right coronary artery, Exclusion of the left atrial appendage Hypertension Hyperlipidemia Former tobacco smoker History of colostomy for bowel rest status post reversal History of breast cancer status post right mastectomy with chemotherapy approximately 25 years ago without radiation, PLAN Discussed echo findings in detail with the patient and her daughter. We discussed the need for cardiac catheterization. However, the patient would prefer a more conservative approach with stress testing. We will set up a cardiolyte stress test tomorrow. If there is any questionable reversibility we will proceed with [facility] at that time. She is in agreement with this plan. Recommend decreasing aspirin to 81 mg daily and adding losartan 25 mg daily. Check chest xray. Increase lasix to BID rather than daily. Document accurate intake and output along with daily weights. Follow renal function and electrolytes in the morning. Further recommendations to follow based on clinical course. Nurse Practitioner note has been reviewed, I agree with a documented findings and plan of care. Patient was seen and examined. Objective - Vital Signs Vital signs: Vital Signs Temp 98.3 F 03/05/21 11:38 Pulse 69 03/05/21 11:38 Resp 16 03/05/21 11:38 BP 123/58 03/05/21 11:38 Pulse Ox 93 L 03/05/21 11:38 Intake & Output 03/04/21 03/05/21 03/05/21 18:59 06:59 18:59 Intake Total 270 10 240 Output Total 175 150 Balance 270 -165 90 Weight 67.313 kg 67.3 kg Intake: IV 10 10 Invasive Line 1 10 10 Oral 260 240 Output: Urine 175 150 Other: # Voids 1 - Labs CBC & Chem 7: 03/04/21 04:25 03/04/21 04:25 Labs: Abnormal Lab Results - Last 24 Hours (Table) 03/04/21 Range/Units 12:01 APTT 42.6 H (22.0-30.0) sec
--- NOTE | 2021-03-05 13:06 | XR ---
EXAMINATION TYPE: XR chest 2V DATE OF EXAM: 03/05/2021 COMPARISON: 01/30/2021 HISTORY: 75-year-old female cough and shortness of breath TECHNIQUE: PA and lateral views FINDINGS: Heart limits of normal in size. Post-CABG changes. Atherosclerotic arch calcifications. Small to mode rate bilateral pleural effusions increased from prior exam. Focal patchy right midlung opacity. IMPRESSION: Increasing small to moderate effusions with adjacent atelectasis and/or consolidation. Additional foc al atelectasis or infiltrate at the right midlung.
[2021-03-05] MEDS: HEPARIN SODIUM,PORCINE/PF 5,000 UNIT/0.5 ML SYRINGE SQ SCH ×2 (15:10→22:38)
[2021-03-05] MEDS: ATORVASTATIN 40 MG TAB PO SCH (22:03)
[2021-03-06] MEDS: AMITRIPTYLINE HCL 10 MG TAB PO SCH ×2 (03:55→20:35)
[2021-03-06] MEDS: methIMAzole 5 MG TAB PO SCH ×2 (03:55→20:35)
[2021-03-06] MEDS: PANTOPRAZOLE 40 MG TABLET PO SCH (06:34)
[2021-03-06 07:42] LABS: HCT 34.9 % (34.0-46.0); HGB 11.3 gm/dL (11.4-16.0); Hypochromasia Slight; MCHC 32.5 g/dL (31.0-37.0); MCV 83.2 fL (80.0-100.0); Mean Platelet Volume 7.3; Platelet Count 357 k/uL (150-450); RBC 4.19 m/uL (3.80-5.40); RDW 14.3 % (11.5-15.5); WBC 7.9 k/uL (3.8-10.6)
[2021-03-06 07:55] LABS: INR 1.1 (<1.2); Prothrombin Time 11.2 sec (9.0-12.0)
[2021-03-06 07:58] LABS: Calcium 9.3 mg/dL (8.4-10.2); Potassium 3.9 mmol/L (3.5-5.1)
--- NOTE | 2021-03-06 10:26 | P.GSCN ---
History of Present Illness Consult date: 03/06/21 Reason for Consult: Known to our service, recent CABG Requesting physician: Poncho Payne History of present illness: This is a 75-year-old female patient who follows in an outpatient basis with Dr. Foster for primary care and Dr Solano for cardiology. She has a previous medical history of coronary artery disease with left main disease and non-STEMI status post off-pump 3 vessel CABG 01/25/21, hyperthyroid, borderline diabetes, hypertension, hyperlipidemia, breast cancer status post right mastectomy with chemotherapy, diverticulitis status post colostomy with reversal, previous tobacco dependence. She was admitted to us back in January for off-pump CABG, her postoperative care was essentially uneventful and she was discharged to [facility] inpatient rehab on postoperative day #5. She was there for a short time and was discharged to home and has been recovering uneventfully and participating in cardiac rehab until a couple of days ago when she began to experience abdominal pain associated with nausea and vomiting. Due to her history of similar symptoms along with recent open heart surgery she presented to [facility] emergency room for evaluation and treatment. While in the emergency room she did have a mildly abnormal troponin of 0.037 which did elevate to 0.045. Due to her mild troponin elevation she was admitted for evaluation and treatment by cardiology. Transthoracic echocardiogram was completed demonstrating moderate to severely impaired left ventricular systolic function with EF 30-35%, with no wall motion abnormalities. ProBNP was 6110. The patient was recommended to undergo heart catheterization, however the patient preferred a more conservative approach and she is scheduled for stress testing today. If there are abnormalities on the stress test she is agreeable to heart cath at that time. Dr. Flores from cardiothoracic surgery was consulted as this patient is known to our service from her recent CABG. Review of Systems Review of systems was completed and was negative except as noted - Gastrointestinal Reports as per HPI, Reports abdominal pain, Reports nausea, Reports vomiting Past Medical History Past Medical History: Coronary Artery Disease (CAD), Cancer, Hyperlipidemia, Hypertension, Memory Impairment, Myocardial Infarction (MT), Osteoarthritis (OA) Additional Past Medical History / Comment(s): 01/25/21 CABG X3 Last Myocardial Infarction Date:: 01/21/21 History of Any Multi-Drug Resistant Organisms: None Reported Past Surgical History: Appendectomy, Bladder Surgery, Bowel Resection, Breast Surgery, Cholecystectomy, Coronary Bypass/CABG, Hysterectomy, Orthopedic Surgery, Tubal Ligation Additional Past Surgical History / Comment(s): cataractsurgery x2 with lens implants, masectomy on right breast, bowel resection with colostomy and reversal, bladder suspension, left knee replacement, skin cancer removed from right ear Past Anesthesia/Blood Transfusion Reactions: No Reported Reaction Past Psychological History: Depression Smoking Status: Unknown if ever smoked Past Alcohol Use History: None Reported Additional Past Alcohol Use History / Comment(s): pt. quit smoking many years ago, was a pack a day smoker for about 20 years, pt. lives [place], pts. daughter helps her Past Drug Use History: None Reported Additional Drug Use History / Comment(s): Quit smoking 40 years ago; vaccinated against Covid with apprupt vaccine, last dose June 2020 - Past Family History Father Family Medical History: AFIB, Congestive Heart Failure (CHF) Mother Family Medical History: Cancer Additional Family Medical History / Comment(s): breast cancer with mets Medications and Allergies Home Medications Medication Instructions Recorded Confirmed Type ALPRAZolam [Xanax] 1 mg PO DAILY@0800,2200 01/21/21 03/03/21 History Amitriptyline HCl [Elavil] 20 mg PO DAILY 01/21/21 03/03/21 History Cholecalciferol [Vitamin D3 (25 50 mcg PO DAILY@79901/21/21 03/03/21 History Mcg = 1000 Iu)] Rosuvastatin [Crestor] 20 mg PO HS@0 01/21/21 03/03/21 History Sertraline [Zoloft] 100 mg PO DAILY@79901/21/21 03/03/21 History buPROPion [Wellbutrin] 75 mg PO DAILY@79901/21/21 03/03/21 History Acetaminophen Tab [Tylenol] 650 mg PO Q4HR PRN tab 01/30/21 03/03/21 Rx Aspirin 325 mg PO DAILY tab 01/30/21 03/03/21 Rx Clopidogrel [Plavix] 75 mg PO DAILY tab 01/30/21 03/03/21 Rx Melatonin 5 mg PO HS tablet 01/30/21 03/03/21 Rx Metoprolol Tartrate [Lopressor] 12.5 mg PO BID tab 01/30/21 03/03/21 Rx Pantoprazole [Protonix] 40 mg PO AC-BRKFST tablet. 01/30/21 03/03/21 Rx amLODIPine [Norvasc] 5 mg PO DAILY@1200 tab 01/30/21 03/03/21 Rx methIMAzole [Tapazole] 15 mg PO DAILY tab 01/30/21 03/03/21 Rx Allergies Allergy/AdvReac Type Severity Reaction Status Date / Time No Known Allergies Allergy Verified 03/03/21 17:41 Surgical - Exam Vital Signs Temp Pulse Resp BP Pulse Ox 98.1 F 76 20 159/72 95 03/03/21 16:36 03/03/21 16:36 03/03/21 16:36 03/03/21 16:36 03/03/21 16:36 CONSTITUTIONAL: Awake and alert, appears comfortable, cooperative, well- developed, well-nourished, no pain, no acute distress EYES: Pupils equal, round, reactive to light, normal ocular movement ENT: Moist mucous membranes without oral lesions present NECK: No masses, no bruits, trachea midline RESPIRATORY: Lungs sounds clear to auscultation bilaterally. Respirations even, nonlabored. Currently on room air with oxygen saturation 94%. Strong cough. CARDIOVASCULAR: S1, S2 present. Regular rate and rhythm, sinus rhythm on telemetry. Sternum stable. Palpable peripheral pulses bilaterally. No edema present. No calf pain or tenderness noted. GASTROINTESTINAL: Abdomen soft, nontender, nondistended without masses or organomegaly noted. There is no rebound or guarding present. Active bowel sounds present 4 quadrants. GENITOURINARY: Deferred INTEGUMENTARY: Skin is warm and dry with evidence of good perfusion. Anterior chest incision well-healed without redness or drainage NEUROLOGIC: Cranial nerves II through XII intact, normal coordination, no obvious motor or sensory deficits, speech is normal MUSKULOSKELETAL: Able to move all extremities, strength equal bilaterally, normal posture PSYCHIATRIC: Alert and oriented to person place and time, appropriate affect, intact judgment and insight Results - Labs 03/06/21 07:06 03/06/21 07:06 Abnormal Lab Results - Last 24 Hours (Table) 03/06/21 03/06/21 Range/Units 07:06 07:06 Hgb 11.3 L (11.4-16.0) gm/dL Glucose 133 H (74-99) mg/dL Diabetes panel 03/06/21 Range/Units 07:06 Sodium 139 (137-145) mmol/L Potassium 3.9 (3.5-5.1) mmol/L Chloride 104 (98-107) mmol/L Carbon Dioxide 25 (22-30) mmol/L BUN 17 (7-17) mg/dL Creatinine 1.02 (0.52-1.04) mg/dL Glucose 133 H (74-99) mg/dL Calcium 9.3 (8.4-10.2) mg/dL Calcium panel 03/06/21 Range/Units 07:06 Calcium 9.3 (8.4-10.2) mg/dL Pituitary panel 03/06/21 Range/Units 07:06 Sodium 139 (137-145) mmol/L Potassium 3.9 (3.5-5.1) mmol/L Chloride 104 (98-107) mmol/L Carbon Dioxide 25 (22-30) mmol/L BUN 17 (7-17) mg/dL Creatinine 1.02 (0.52-1.04) mg/dL Glucose 133 H (74-99) mg/dL Calcium 9.3 (8.4-10.2) mg/dL Adrenal panel 03/06/21 Range/Units 07:06 Sodium 139 (137-145) mmol/L Potassium 3.9 (3.5-5.1) mmol/L Chloride 104 (98-107) mmol/L Carbon Dioxide 25 (22-30) mmol/L BUN 17 (7-17) mg/dL Creatinine 1.02 (0.52-1.04) mg/dL Glucose 133 H (74-99) mg/dL Calcium 9.3 (8.4-10.2) mg/dL - Imaging Chest x-ray: report reviewed, image reviewed CT scan - abdomen: report reviewed, image reviewed EKG: image reviewed Assessment and Plan Assessment: 1. Acute abdominal pain with nausea and vomiting present on admission, resolved 2. Mild troponin elevation 3. Acute systolic heart failure, proBNP 6110, EF 30-35% on transthoracic echocardiogram 4. Coronary artery disease with left main disease and non-STEMI status post off-pump 3 vessel CABG 01/25/21 5. Hyperthyroid, treated 6. Borderline diabetes, hemoglobin A1c 6.6% 7. History of hypertension 8. Hyperlipidemia, treated 9. History of breast cancer status post right mastectomy with chemotherapy 10. History of diverticulitis status post colostomy with reversal 11. Previous tobacco dependence Plan: The patient was seen and examined at the bedside on the cardiac stepdown unit. Chart/diagnostics were reviewed. The case was discussed in detail with Dr. Garcia. The patient states she feels significantly better, denies any nausea, vomiting or abdominal pain. States she was able to tolerate oral intake yesterday without difficulty. She is currently nothing by mouth for stress test. We did add in her home dose of amlodipine as she needs calcium channel maría for radial artery spasm prophylaxis for 6 months. Otherwise continue to maximize medical therapy with aspirin, statin, Plavix, beta maría, ARB. Milo rnal precautions continue to be in place for a total of 12 weeks including no lifting, pushing, pulling anything heavier than 10 pounds. Encourage ambulation. Medical management of other comorbidities per primary care, cardiology. We will continue to see on an as-needed basis while hospitalized a nd patient will follow up with Dr. Flores at the 3 month brooks, approximately the beginning of April. Thank you for this consult. Please call us with any further questions. Time with Patient: Greater than 30
--- NOTE | 2021-03-06 11:24 | P.PN ---
Subjective This is a pleasant 75-year-old female past medical history significant for hypertension, hyperlipidemia, former nicotine dependence, hyperthyroidism, recent NSTEMI (01/2021), coronary artery disease s/p 3 vessel CABG on 01/25/[address] Flores, breast cancer status post right mastectomy with chemotherapy approximately 25 years ago without radiation, colostomy for bowel rest status post reversal . She follows with Dr. Hess. She came in for GI type symptoms with a mild elevation in her troponin. Echocardiogram obtained revealed impaired LV systolic function with EF 30-35% with apical hypokinesia. She is seen and examined sitting up in the recliner chair in no acute distress. She denies chest pain. She is coughing that started as mostly dry yesterday but she is now bringing up some thick yellow sputum. She does have some shortness of breath when she is coughing. Blood pressure 123/58 heart rate 69 afebrile maintaining oxygen saturation on room air. NTproBNP 6110. 03/06/2021 Patient is seen and examined sitting up in recliner with daughter at the bedside. She states last evening she did notice an increase in urination however her breathing seems a little worse. She could not lay flat in bed she had to sleep sitting up in the chair. She has no symptoms of chest discomfort or palpitations. She continues to cough. Blood pressure 127/73 heart rate 84 afebrile maintaining oxygen saturation on room air. Laboratory data reviewed, proBNP 6110, sodium 139, potassium 3.9, creatinine 1.02 and magnesium 2.0. Currently maintained on amlodipine 5 mg daily, aspirin 81 mg daily, atorvastatin 40 mg daily, Plavix 75 mg daily, Lasix 20 mg by mouth twice a day, losartan 25 mg daily and metoprolol 12.5 mg daily. 24 hour urine output is not well- documented. Chest x-ray reveals increasing small to moderate effusions with adjacent atelectasis and/or consolidation with additional focal atelectasis or infiltrate in the right midlung. Telemetry tracings reviewed one episode of nonsustained ventricular tachycardia last night. The patient was asymptomatic time. GENERAL: Well-appearing, well-nourished and in no acute distress. NECK: Supple without JVD or thyromegaly. LUNGS: Breath sounds clear to auscultation bilaterally. Respiration equal and unlabored. No wheezes, rales or rhonchi. HEART: Regular rate and rhythm without murmurs, rubs or gallops. S1 and S2 heard. EXTREMITIES: Normal range of motion, no edema. No clubbing or cyanosis. Peripheral pulses intact. ASSESSMENT Epigastric pain Troponin leak of unclear significance. Acute systolic heart failure s/p CABG Coronary artery disease s/p 01/25/21 CABG 3 with WESLEY to the LAD, left radial artery graft to the obtuse marginal coronary artery, reverse saphenous vein graft to the posterior lateral branch of the right coronary artery, Exclusion of the left atrial appendage Hypertension Hyperlipidemia Non-sustained monomorphic ventricular tachycardia Former tobacco smoker History of colostomy for bowel rest status post reversal History of breast cancer status post right mastectomy with chemotherapy approximately 25 years ago without radiation, PLAN Increase beta maría to 25 mg BID. Change lasix to IV for 24 hours. Discussed with the nurse the need for accurate intake and output documentation. Proceed with stress test today as previously ordered. Despite stress test findings we recommend keeping her inpatient for at least 24 hours to continue to diurese. Further recommendations to follow based on clinical course. Nurse Practitioner note has been reviewed, I agree with a documented findings and plan of care. Patient was seen and examined. Objective - Vital Signs Vital signs: Vital Signs Temp 98.2 F 03/06/21 08:00 Pulse 84 03/06/21 08:00 Resp 18 03/06/21 08:00 BP 127/73 03/06/21 08:00 Pulse Ox 94 L 03/06/21 08:00 Intake & Output 03/05/21 03/06/21 03/06/21 18:59 06:59 18:59 Intake Total 720 Output Total 150 Balance 570 Weight 68 kg 67.2 kg Intake: Oral 720 Output: Urine 150 - Labs CBC & Chem 7: 03/06/21 07:06 03/06/21 07:06 Labs: Abnormal Lab Results - Last 24 Hours (Table) 03/06/21 03/06/21 Range/Units 07:06 07:06 Hgb 11.3 L (11.4-16.0) gm/dL Glucose 133 H (74-99) mg/dL
--- NOTE | 2021-03-06 12:45 | P.PN ---
<Poncho Payne - Last Filed: 03/06/21 12:39> Subjective Progress Note Date: 03/06/21 Hospital course: Patient is a 75-year-old female with a past medical history of CAD with recent CABG (triple bypass) on 01/25/21 on Plavix, hypertension, hyperlipidemia, and breast cancer status post right mastectomy in remission greater than 20 years. Patient presented to the emergency departmentwith complaints of nausea, vomiting, and epigastric pain. She was found to have elevated troponins status post her recent CABG. CT abdomen and pelvis negative for acute intra-abdominal process however revealing severe atherosclerotic aspirations of the abdominal aorta with dense calcifications at the origins of great vessels, colonic diverticulosis without evidence of diverticulitis, a grade 1 anterolisthesis of L4 on L5, hyperdense left renal lesion likely representing a cyst complicated by proteinaceous or hemorrhagic material, and small bilateral pleural effusions. EKG showing normal sinus rhythm at 74 bpm with a left bundle branch block. troponins elevated at0.037, 0.044, and 0.045. Echocardiogram: Showing a moderately to severely impaired EF of 30-35% with hypokinesis to apex this is significantly reduced from previous echocardiogram completed 01/22/21 which revealed an EF of 50-55%. Patient is admitted under our services and cardiology is consulted. cardiology recommending cardiac cath at this time, patient preferring to be more conservative. Plans for stress test tomorrow and if there are any questionable findings they will proceed with a cardiac cath. ProBNP resulting at 6110. Physical exam: Patient was seen and fully evaluated at the bedside this morning. Patient sitting upright in chair and again reports feeling well this morning. She continues to deny having any chest pain or discomfort, she does report continued mild shortness of breath and dry cough stating she is unable to bring anything up today. Patient had Lexiscan stress test today, awaiting report. Consult was placed for vascular surgery as patient is only one month out from CABG and new diagnosis of acute systolic heart failure. Vital signs reviewed and stable. General: Nontoxic, no distress and appears stated age. Derm: Skin warm and dry, normal coloration for ethnicity. Head: Atraumatic, normocephalic and symmetric. Eyes: EOMs intact, no lid lag, and anicteric sclera Mouth: no lip lesions, mucus membranes moist Cardiovascular: regular rate and rhythm with normal S1S2, no murmur, positive posterior tibial pulses bilaterally, and cap refill < 2 seconds. No JVD, no lower extremity edema Lungs: Respirations even, regular, and unlabored on room air. Lungs CTA bilaterally, no rhonchi, no rales, no wheezing, and no accessory muscle usage. Abdominal: soft, nontender to palpation, no guarding, no appreciable organomegaly Ext: ROM intact. No gross muscle atrophy, no edema, no contractures Neuro: Speech clear, face symmetrical and CN II-XII grossly intact with no noted focal neuro deficits Psych: Alert and oriented to person, place, time, and situation. Appropriate and pleasant affect. Assessment and Plan of Care: Acute Systolic Heart Failure status post triple bypass 01/25/21, EF 30-35% Elevated troponin, likely non-thrombotic troponin leak, acute coronary event ruled out History of CAD with recent CABG -ProBNP 6110 -EKG showing normal sinus rhythm at 74 bpm with a left bundle branch block. troponins elevated at0.037, 0.044, and 0.045. Echocardiogram: Showing a moderately to severely impaired EF of 30-35% with hypokinesis to apex this is significantly reduced from previous echocardiogram completed 01/22/21 which revealed an EF of 50-55%. -Cardiology following, patient underwent Lexiscan stress test today -Continue daily aspirin, atorvastatin, Plavix, metoprolol and losartan -Telemetry monitoring -Daily weights, close monitoring of I's and O's -Lasix ordered changed to Lasix 20 mg IVP every 12 hours -Consult placed to thoracic surgery secondary to one month status post recent CABG and new diagnosis of acute systolic heart failure. Hypertension -Monitor vital signs and continue daily medication regimen with losartan and metoprolol Hyperlipidemia -Continue daily medication regimen with atorvastatin 40 mg nightly. -Heart healthy diet CODE STATUS: Full code DVT prophylaxis: Heparin Discussed with: patient and RN Anticipated discharge date: clinical course to determine Anticipated discharge place: home A total of 45 minutes was spent on the care of this complex patient more than 50% of the time was spent in counseling and care coordination. Objective - Vital Signs Vital signs: Vital Signs Temp 98.5 F 03/06/21 03:50 Pulse 74 03/06/21 03:50 Resp 16 03/06/21 03:50 BP 145/72 03/06/21 03:50 Pulse Ox 92 L 03/06/21 03:50 Intake & Output 03/05/21 03/06/21 03/06/21 18:59 06:59 18:59 Intake Total 720 Output Total 150 Balance 570 Weight 68 kg 67.2 kg Intake: Oral 720 Output: Urine 150 - Labs CBC & Chem 7: 03/06/21 07:06 03/06/21 07:06 Labs: Abnormal Lab Results - Last 24 Hours (Table) 03/06/21 Range/Units 07:06 Hgb 11.3 L (11.4-16.0) gm/dL <Leny Awad A - Last Filed: 03/06/21 21:28> Subjective Poncho Payne NP rendered care for this patient independently, reviewed the findings and plan as documented in the note above. I did not physically speak with or examine the patient on this date. Case discussed with cardiothoracic PEARL HAND. Patient does have fixed deficit on nuclear medicine scan and had a myocardial infarction prior to recent CABG. Await further recommendations from cardiology. Objective - Vital Signs Vital signs: Vital Signs Temp 97.4 F L 03/06/21 19:57 Pulse 67 03/06/21 19:57 Resp 18 03/06/21 19:57 BP 116/56 03/06/21 19:57 Pulse Ox 93 L 03/06/21 19:57 Intake & Output 03/06/21 03/06/21 03/07/21 06:59 18:59 06:59 Intake Total 240 Output Total 550 180 Balance -310 -180 Weight 67.2 kg 67.2 kg Intake: Oral 240 Output: Urine 550 180 Other: # Voids 1 - Labs CBC & Chem 7: 03/06/21 07:06 03/06/21 07:06 Labs: Abnormal Lab Results - Last 24 Hours (Table) 03/06/21 03/06/21 Range/Units 07:06 07:06 Hgb 11.3 L (11.4-16.0) gm/dL Glucose 133 H (74-99) mg/dL
[2021-03-06] MEDS: ALPRAZolam 1 MG TAB PO SCH ×2 (14:01→20:35)
[2021-03-06] MEDS: HEPARIN SODIUM,PORCINE/PF 5,000 UNIT/0.5 ML SYRINGE SQ SCH ×2 (14:01→16:01)
[2021-03-06] MEDS: SERTRALINE 100 MG TAB PO SCH (14:01)
[2021-03-06] MEDS: CLOPIDOGREL 75 MG TAB PO SCH (14:02)
[2021-03-06] MEDS: buPROPion 75 MG TAB PO SCH ×2 (14:02→20:35)
[2021-03-06] MEDS: ASPIRIN 81 MG PO SCH (14:02)
[2021-03-06] MEDS: FUROSEMIDE 10 MG/ML 2 ML VIAL IV SCH ×2 (14:03→20:34)
[2021-03-06] MEDS: LOSARTAN 25 MG TAB PO SCH (14:03)
[2021-03-06] MEDS: METOPROLOL TARTRATE 25 MG TAB PO SCH ×2 (14:04→20:35)
[2021-03-06] MEDS: amLODIPine 5 MG TAB PO SCH (14:04)
--- NOTE | 2021-03-06 14:21 | NM ---
EXAMINATION TYPE: NM stress cardiolite complete DATE OF EXAM: 03/06/2021 COMPARISON: NONE HISTORY: Cardiomyopathy, recent CABG TECHNIQUE: After the intravenous administration of 9.2 mCi Tc 99m Sestamibi - Cardiolite resting SPE CT images acquired 45 minutes post injection. At peak stress 26.2 mCi Tc 99m Sestamibi - Stress images obtained 30 minutes post injection The patient was stressed with 0.4mg Lexiscan. FINDINGS: There is a large defect with lack of radiotracer extending from the anterior wall to the in ferior wall through the lateral wall. This is matched on rest and stress images. Polar maps match the defect on stress images. Polar maps suggests some reversibility of the distal defect. This is not id entified on the SPECT imaging however. There is global hypokinesia. Some dyskinesia of the mid to distal anterior wall is present. Ejection fraction is very low and calculated to be 38 %. IMPRESSION: 1. There appears to be a large fixed defect compatible with prior infarct along the lateral wall near the cardiac base through the cardiac apex. 2. Low ejection fraction of 38%. Normal greater than 50%. 3. No reversible component is clearly identified. 4. Dyskinesia of the distal lateral wall global hypokinesia A [place] level critical message alert has been initiated for Ramos Catherine MD via the [employer] Critical Results System on 03/06/2021 2:18 PM. This message alert has been sent to Ramos Catherine MD via the preferences provided by the clinician for the receipt of Radiology Critical Findings. Message ID [id number].
[2021-03-06] MEDS: METOPROLOL TARTRATE 12.5 MG TAB PO SCH (15:08)
[2021-03-06] MEDS: FUROSEMIDE 20 MG TAB PO SCH (15:08)
[2021-03-06] MEDS: ATORVASTATIN 40 MG TAB PO SCH (20:35)
[2021-03-07] MEDS: HEPARIN SODIUM,PORCINE/PF 5,000 UNIT/0.5 ML SYRINGE SQ SCH ×3 (00:20→15:25)
[2021-03-07] MEDS: PANTOPRAZOLE 40 MG TABLET PO SCH (05:50)
--- NOTE | 2021-03-07 08:10 | EST ---
EXERCISE STRESS DATE OF STUDY: 03/06/2021 AGE: 75 SEX: F HT: 4'11" WT: 148 lbs. PROTOCOL: Lexiscan STAGE: NA DURATION OF EXERCISE: NA HEART RATE REST: 78 BLOOD PRESSURE REST: 141/61 MAXIMUM HEART RATE ACHIEVED: 91 MAXIMUM BLOOD PRESSURE: 154/56 85% MPHR: 125 100% MPHR: 147 METS: NA INDICATIONS: ASCAD CLINICAL INFORMATION: STRESS DATA: Heart rate 78, pressure 141/61 mmHg. Baseline EKG showed sinus mechanism with left bundle branch block morphology. Lexiscan in the amount of 0.4 mg was given over 15 seconds per protocol. Max heart rate was 90 beats per minute. Maximum pressure was 154/56 mmHg. Clinically the patient did not have any symptoms. CONCLUSION: 1. Nondiagnostic electrocardiogram stress testing in response to Lexiscan. 2. Please follow up on the Cardiolite portion in a separate report from Radiology Department. MMODL / IJN: [id number] /
[2021-03-07] MEDS: FUROSEMIDE 10 MG/ML 2 ML VIAL IV SCH ×2 (09:03→10:23)
[2021-03-07] MEDS: ASPIRIN 81 MG PO SCH (09:04)
[2021-03-07] MEDS: SERTRALINE 100 MG TAB PO SCH (09:04)
[2021-03-07] MEDS: ALPRAZolam 1 MG TAB PO SCH ×2 (09:04→20:24)
[2021-03-07] MEDS: METOPROLOL TARTRATE 25 MG TAB PO SCH ×2 (09:04→20:24)
[2021-03-07] MEDS: CLOPIDOGREL 75 MG TAB PO SCH (09:04)
[2021-03-07] MEDS: LOSARTAN 25 MG TAB PO SCH (09:04)
[2021-03-07] MEDS: buPROPion 75 MG TAB PO SCH ×2 (09:05→20:24)
[2021-03-07] MEDS: FUROSEMIDE 10 MG/ML 4 ML VIAL IV SCH ×2 (09:08→20:25)
[2021-03-07 09:57] LABS: Calcium 9.5 mg/dL (8.4-10.2)
[2021-03-07] MEDS: amLODIPine 5 MG TAB PO SCH (11:53)
--- NOTE | 2021-03-07 11:55 | P.PN ---
<Poncho Payne - Last Filed: 03/07/21 11:55> Subjective Progress Note Date: 03/07/21 Hospital course: Patient is a 75-year-old female with a past medical history of CAD with recent CABG (triple bypass) on 01/25/21 on Plavix, hypertension, hyperlipidemia, and breast cancer status post right mastectomy in remission greater than 20 years. Patient presented to the emergency departmentwith complaints of nausea, vomiting, and epigastric pain. She was found to have elevated troponins status post her recent CABG. CT abdomen and pelvis negative for acute intra-abdominal process however revealing severe atherosclerotic aspirations of the abdominal aorta with dense calcifications at the origins of great vessels, colonic diverticulosis without evidence of diverticulitis, a grade 1 anterolisthesis of L4 on L5, hyperdense left renal lesion likely representing a cyst complicated by proteinaceous or hemorrhagic material, and small bilateral pleural effusions. EKG showing normal sinus rhythm at 74 bpm with a left bundle branch block. troponins elevated at0.037, 0.044, and 0.045. Echocardiogram: Showing a moderately to severely impaired EF of 30-35% with hypokinesis to apex this is significantly reduced from previous echocardiogram completed 01/22/21 which revealed an EF of 50-55%. Patient is admitted under our services and cardiology is consulted. cardiology recommending cardiac cath at this time, patient preferring to be more conservative. Plans for stress test tomorrow and if there are any questionable findings they will proceed with a cardiac cath. ProBNP resulting at 6110. Dorothy scan completed 03/06/21 did reveal an EF of 38% with a large left lateral wall fixed defect along with global hypokinesia and no reversible component identified. Physical exam: Patient was seen and fully evaluated at the bedside this morning. Patient sitting upright in chair and again reports feeling well this morning. Patient states that she feels much better now that she knows that she doesn't have to go back under open heart. Patient denies having any chest pain and reports that her mild shortness of breath and cough has improved. Dorothy scan completed yesterday did reveal an EF of 38% with a large left lateral wall fixed defect along with global hypokinesia and no reversible component identified. Cardiology increased pt's lasix this morning to 40 mg IVP BID. Plans for likely discharge home tomorrow. Vital signs reviewed and stable. General: Nontoxic, no distress and appears stated age. Derm: Skin warm and dry, normal coloration for ethnicity. Head: Atraumatic, normocephalic and symmetric. Eyes: EOMs intact, no lid lag, and anicteric sclera Mouth: no lip lesions, mucus membranes moist Cardiovascular: regular rate and rhythm with normal S1S2, no murmur, positive posterior tibial pulses bilaterally, and cap refill < 2 seconds. No JVD, no lower extremity edema Lungs: Respirations even, regular, and unlabored on room air. Lungs CTA bilaterally, no rhonchi, no rales, no wheezing, and no accessory muscle usage. Abdominal: soft, nontender to palpation, no guarding, no appreciable organomegaly Ext: ROM intact. No gross muscle atrophy, no edema, no contractures Neuro: Speech clear, face symmetrical and CN II-XII grossly intact with no noted focal neuro deficits Psych: Alert and oriented to person, place, time, and situation. Appropriate and pleasant affect. Assessment and Plan of Care: Acute Systolic Heart Failure status post triple bypass 01/25/21, EF 30-35% Elevated troponin, likely non-thrombotic troponin leak, acute coronary event ruled out History of CAD with recent CABG -ProBNP 6110 -EKG showing normal sinus rhythm at 74 bpm with a left bundle branch block. -Troponins elevated at0.037, 0.044, and 0.045. -Echocardiogram: Showing a moderately to severely impaired EF of 30-35% with hypokinesis to apex this is significantly reduced from previous echocardiogram completed 01/22/21 which revealed an EF of 50-55%. -Dorothy scan completed 03/06/21 did reveal an EF of 38% with a large left lateral wall fixed defect along with global hypokinesia and no reversible component identified. -Cardiology following, increased patient's Lasix this morning -Continue daily aspirin, atorvastatin, Plavix, metoprolol and losartan -Telemetry monitoring. -Daily weights, close monitoring of I's and O's -Lasix 40 mg IVP every 12 hours -CardioThoracic surgery following Hypertension -Monitor vital signs and continue daily medication regimen with losartan and metoprolol Hyperlipidemia -Continue daily medication regimen with atorvastatin 40 mg nightly. -Heart healthy diet CODE STATUS: Full code DVT prophylaxis: Heparin Discussed with: patient and RN Anticipated discharge date: Tentative plans for discharge tomorrow morning Anticipated discharge place: Home with [facility] A total of 45 minutes was spent on the care of this complex patient more than 50% of the time was spent in counseling and care coordination. Objective - Vital Signs Vital signs: Vital Signs Temp 98.4 F 03/07/21 08:00 Pulse 72 03/07/21 08:00 Resp 18 03/07/21 08:00 BP 123/74 03/07/21 08:00 Pulse Ox 95 03/07/21 08:00 Intake & Output 03/06/21 03/07/21 03/07/21 18:59 06:59 18:59 Intake Total 240 540 Output Total 550 480 300 Balance -310 -480 240 Weight 67.2 kg 66.5 kg Intake: Oral 240 540 Output: Urine 550 480 300 Other: # Voids 1 1 - Labs CBC & Chem 7: 03/06/21 07:06 03/07/21 09:25 Labs: Abnormal Lab Results - Last 24 Hours (Table) 03/07/21 Range/Units 09:25 Glucose 137 H (74-99) mg/dL <Krissy Salmon - Last Filed: 03/07/21 15:40> Objective - Vital Signs Vital signs: Vital Signs Temp 98.6 F 03/07/21 11:56 Pulse 74 03/07/21 14:00 Resp 18 03/07/21 14:00 BP 110/68 03/07/21 11:56 Pulse Ox 95 03/07/21 11:56 Intake & Output 03/06/21 03/07/21 03/07/21 18:59 06:59 18:59 Intake Total 240 540 Output Total 550 480 300 Balance -310 -480 240 Weight 67.2 kg 66.5 kg Intake: Oral 240 540 Output: Urine 550 480 300 Other: # Voids 1 1 - Labs CBC & Chem 7: 03/06/21 07:06 03/07/21 09:25 Labs: Abnormal Lab Results - Last 24 Hours (Table) 03/07/21 Range/Units 09:25 Glucose 137 H (74-99) mg/dL Assessment and Plan Assessment: Patient seen and evaluated by me independently. Patient was also seen by MANSI, the original author of this note. I am in agreement with the subjective, physical exam, and assessment and plan as documented with the addition/changes of my exam and assessment below. Gen: awake, alert HEENT: normocephalic, atraumatic, good hearing acuity, moist mucous membranes Resp: good air exchange, breathing comfortably with no accessory muscle use, bilateral posterior crackles CVS: good distal perfusion x 4, regular rate and rhythm without murmurs GI: soft, NTTP, ND : no SPT, no CVAT, MSK: Mild pitting edema, no clubbing Neuro: non-focal, moving all extremities Psych: cooperative, euthymic mood Plan: Ongoing IV diuretics for heart failure symptoms Patient may warrant an outpatient viability study to determine whether or not angiogram is warranted
--- NOTE | 2021-03-07 11:59 | P.PN ---
Subjective This is a pleasant 75-year-old female past medical history significant for hypertension, hyperlipidemia, former nicotine dependence, hyperthyroidism, recent NSTEMI (01/2021), coronary artery disease s/p 3 vessel CABG on 01/25/[address] Flores, breast cancer status post right mastectomy with chemotherapy approximately 25 years ago without radiation, colostomy for bowel rest status post reversal . She follows with Dr. Hess. She came in for GI type symptoms with a mild elevation in her troponin. Echocardiogram obtained revealed impaired LV systolic function with EF 30-35% with apical hypokinesia. She is seen and examined sitting up in the recliner chair in no acute distress. She denies chest pain. She is coughing that started as mostly dry yesterday but she is now bringing up some thick yellow sputum. She does have some shortness of breath when she is coughing. Blood pressure 123/58 heart rate 69 afebrile maintaining oxygen saturation on room air. NTproBNP 6110. 03/07/2021 Patient seen and examined sitting up in the recliner chair with her daughter at the bedside. She states she continues to feel short of breath at night when she is trying to lay flat. She had to sleep sitting up in the recliner chair again. She states her exertional shortness of breath seems to have improved. She continues to cough and she has had no further symptoms of epigastric or abdominal discomfort. Lexiscan stress test yesterday revealed a predominantly fixed defect with cardiomyopathy noted and no significant reversibility. She continues to be maintained on IV Lasix, output documentation does not appear accurate. The patient herself states she is up urinating very frequently. Blood pressure 123/74 heart rate 72 afebrile maintaining oxygen saturation on room air. Laboratory data reviewed, sodium 140, potassium 4, creatinine 1.04. Telemetry tracings reviewed, she is maintaining sinus rhythm with no further ventricular arrhythmias noted. GENERAL: Well-appearing, well-nourished and in no acute distress. NECK: Supple without JVD or thyromegaly. LUNGS: Breath sounds clear to auscultation bilaterally. Respiration equal and unlabored. No wheezes, rales or rhonchi. HEART: Regular rate and rhythm without murmurs, rubs or gallops. S1 and S2 heard. EXTREMITIES: Normal range of motion, no edema. No clubbing or cyanosis. Periphe ral pulses intact. ASSESSMENT Epigastric pain Troponin leak of unclear significance. Acute systolic heart failure s/p CABG Coronary artery disease s/p 01/25/21 CABG 3 with WESLEY to the LAD, left radial artery graft to the obtuse marginal coronary artery, reverse saphenous vein graft to the posterior lateral branch of the right coronary artery, Exclusion of the left atrial appendage Hypertension Hyperlipidemia Non-sustained monomorphic ventricular tachycardia Former tobacco smoker History of colostomy for bowel rest status post reversal History of breast cancer status post right mastectomy with chemotherapy approximately 25 years ago without radiation, PLAN Increase Lasix to 40 mg IV twice a day. Follow renal function and electrolytes in the morning. Discussed with nursing staff the importance of accurate documentation of urinary output. Further recommendations to follow based upon clinical course. Patient and her daughter updated as to the plan of care. Nurse Practitioner note has been reviewed, I agree with a documented findings and plan of care. Patient was seen and examined. Objective - Vital Signs Vital signs: Vital Signs Temp 98.4 F 03/07/21 08:00 Pulse 72 03/07/21 08:00 Resp 18 03/07/21 08:00 BP 123/74 03/07/21 08:00 Pulse Ox 95 03/07/21 08:00 Intake & Output 03/06/21 03/07/21 03/07/21 18:59 06:59 18:59 Intake Total 240 540 Output Total 550 480 300 Balance -310 -480 240 Weight 67.2 kg 66.5 kg Intake: Oral 240 540 Output: Urine 550 480 300 Other: # Voids 1 1 - Labs CBC & Chem 7: 03/06/21 07:06 03/07/21 09:25 Labs: Abnormal Lab Results - Last 24 Hours (Table) 03/07/21 Range/Units 09:25 Glucose 137 H (74-99) mg/dL
[2021-03-07] MEDS: AMITRIPTYLINE HCL 10 MG TAB PO SCH (20:24)
[2021-03-07] MEDS: methIMAzole 5 MG TAB PO SCH (20:24)
[2021-03-07] MEDS: ATORVASTATIN 40 MG TAB PO SCH (20:25)
[2021-03-08] MEDS: PANTOPRAZOLE 40 MG TABLET PO SCH (06:16)
--- NOTE | 2021-03-08 08:36 | P.DS ---
Providers Date of admission: 03/05/21 12:19 Expected date of discharge: 03/08/21 Attending physician: Ramos Catherine MD Consults: 03/03/21 20:33 Consult Physician Urgent Consulting Provider: Brian Hess Consult Reason/Comments: Elevated troponin Do you want consulting provider notified?: Already Contacted 03/06/21 07:10 Consult Physician Routine Consulting Provider: Denys Flores Consult Reason/Comments: pt status post triple bypass Do you want consulting provider notified?: Yes [facility] Course: Discharge Diagnosis: Acute Systolic Heart Failure status post triple bypass 01/25/21, EF 30-35% Elevated troponin, likely non-thrombotic troponin leak, acute coronary event ruled out History of CAD with recent CABG Hypertension Hyperlipidemia Hospital Course: Patient is a 75-year-old female with a past medical history of CAD with recent CABG (triple bypass) on 01/25/21 on Plavix, hypertension, hyperlipidemia, and breast cancer status post right mastectomy in remission greater than 20 years. Patient presented to the emergency departmentwith complaints of nausea, vomiting, and epigastric pain. She was found to have elevated troponins status post her recent CABG. CT abdomen and pelvis negative for acute intra-abdominal process however revealing severe atherosclerotic aspirations of the abdominal aorta with dense calcifications at the origins of great vessels, colonic diverticulosis without evidence of diverticulitis, a grade 1 anterolisthesis of L4 on L5, hyperdense left renal lesion likely representing a cyst complicated by proteinaceous or hemorrhagic material, and small bilateral pleural effusions. EKG showing normal sinus rhythm at 74 bpm with a left bundle branch block. troponins elevated at0.037, 0.044, and 0.045. Echocardiogram: Showing a moderately to severely impaired EF of 30-35% with hypokinesis to apex this is s ignificantly reduced from previous echocardiogram completed 01/22/21 which revealed an EF of 50-55%. Patient is admitted under our services along with consult cardiology. ProBNP resulting at 6110. Dorothy scan completed 03/06/21 did reveal an EF of 38% with a large left lateral wall fixed defect along with global hypokinesia and no reversible component identified. Patient was then seen and fully evaluated by cardiothoracic surgery and added in amlodipine as she needs a calcium channel maría for radial artery spasm prophylaxis for 6 months and recommending patient to continue maximize medical therapy with aspirin, statin, Plavix, beta maría, and ARB. Cardiothoracic surgery also recommending patient to continue sternal precautions for a total of 12 weeks with no lifting, pushing, or pulling anything heavier than 10 pounds. Physical exam: Patient was seen and fully evaluated at the bedside this morning. Patient ambulatory in room getting ready to take a shower. Patient reports she is ready to go home. She is 1950 mL of output over the past 24 hours, denies having any headache, lightheadedness, chest pain, palpitations, shortness of breath, or dyspnea with exertion. Patient does report that she does have a slight persistent cough that remains but also reports that it is improved over the past few days. Vital signs reviewed and stable. BMP reviewed and stable. Vital signs reviewed and stable. General: Nontoxic, no distress and appears stated age. Derm: Skin warm and dry, normal coloration for ethnicity. Head: Atraumatic, normocephalic and symmetric. Eyes: EOMs intact, no lid lag, and anicteric sclera Mouth: no lip lesions, mucus membranes moist Cardiovascular: regular rate and rhythm with normal S1S2, no murmur, positive posterior tibial pulses bilaterally, and cap refill < 2 seconds. No JVD, no lower extremity edema Lungs: Respirations even, regular, and unlabored on room air. Lungs CTA bilaterally, no rhonchi, no rales, no wheezing, and no accessory muscle usage. Abdominal: soft, nontender to palpation, no guarding, no appreciable organomegaly Ext: ROM intact. No gross muscle atrophy, no edema, no contractures Neuro: Speech clear, face symmetrical and CN II-XII grossly intact with no noted focal neuro deficits Psych: Alert and oriented to person, place, time, and situation. Appropriate and pleasant affect. A total of 45 minutes of time were spent preparing this complex discharge summary. Patient Condition at Discharge: Stable Plan - Discharge Summary Discharge Rx Participant: Yes New Discharge Prescriptions: New Losartan [Cozaar] 25 mg PO DAILY 30 Days #30 tab Aspirin 81 mg PO DAILY tab Furosemide [Lasix] 40 mg PO BID 30 Days #60 tablet Metoprolol Tartrate [Lopressor] 25 mg PO BID 30 Days #60 tab Continue Rosuvastatin [Crestor] 20 mg PO HS@2200 buPROPion [Wellbutrin] 75 mg PO DAILY@0800 Amitriptyline HCl [Elavil] 20 mg PO DAILY Cholecalciferol [Vitamin D3 (25 Mcg = 1000 Iu)] 50 mcg PO DAILY@0800 Melatonin 5 mg PO HS tablet amLODIPine [Norvasc] 5 mg PO DAILY@1200 tab Clopidogrel [Plavix] 75 mg PO DAILY tab Pantoprazole [Protonix] 40 mg PO AC-BRKFST tablet. methIMAzole [Tapazole] 15 mg PO DAILY tab Acetaminophen Tab [Tylenol] 650 mg PO Q4HR PRN tab PRN Reason: Fever And/ Or Pain Sertraline [Zoloft] 100 mg PO DAILY@0800 ALPRAZolam [Xanax] 1 mg PO DAILY@0800,2200 Discontinued Aspirin 325 mg PO DAILY tab Metoprolol Tartrate [Lopressor] 12.5 mg PO BID tab Discharge Medication List ALPRAZolam [Xanax] 1 mg PO DAILY@0800,2200 01/21/21 [History] Amitriptyline HCl [Elavil] 20 mg PO DAILY 01/21/21 [History] Cholecalciferol [Vitamin D3 (25 Mcg = 1000 Iu)] 50 mcg PO DAILY@0800 01/21/21 [History] Rosuvastatin [Crestor] 20 mg PO HS@2200 01/21/21 [History] Sertraline [Zoloft] 100 mg PO DAILY@0800 01/21/21 [History] buPROPion [Wellbutrin] 75 mg PO DAILY@0800 01/21/21 [History] Acetaminophen Tab [Tylenol] 650 mg PO Q4HR PRN tab 01/30/21 [Rx] Clopidogrel [Plavix] 75 mg PO DAILY tab 01/30/21 [Rx] Melatonin 5 mg PO HS tablet 01/30/21 [Rx] Pantoprazole [Protonix] 40 mg PO AC-BRKFST tablet. 01/30/21 [Rx] amLODIPine [Norvasc] 5 mg PO DAILY@1200 tab 01/30/21 [Rx] methIMAzole [Tapazole] 15 mg PO DAILY tab 01/30/21 [Rx] Aspirin 81 mg PO DAILY tab 03/08/21 [Rx] Furosemide [Lasix] 40 mg PO BID 30 Days #60 tablet 03/08/21 [Rx] Losartan [Cozaar] 25 mg PO DAILY 30 Days #30 tab 03/08/21 [Rx] Metoprolol Tartrate [Lopressor] 25 mg PO BID 30 Days #60 tab 03/08/21 [Rx] Follow up Appointment(s)/Referral(s): Brian Hess MD [STAFF PHYSICIAN] - 2 Weeks Denys Flores MD [STAFF PHYSICIAN] - 03/21/21 1:15 pm () [facility], [NON-STAFF] - Brian Foster DO [Primary Care Provider] - 1-2 days Ambulatory/Diagnostic Orders: Basic Metabolic Panel [LAB.AMB] Time Frame: 3 Days, Location: None Selected Magnesium [LAB.AMB] Time Frame: 3 Days, Location: None Selected Patient Instructions/Handouts: Heart Failure (DC) Activity/Diet/Wound Care/Special Instructions: Activity: As tolerated. Take breaks as needed. Diet: Heart healthy and carb consistent diet. Avoid salts, or foods with hidden salts such as canned or boxed foods and frozen dinners. Extra salt makes your heart work harder and traps the fluid in your body for longer. Special Instructions: Weigh yourself every morning after you urinate. If you gain 3 pounds overnight or more than 5 pounds in one week, call your primary physician and ict development manager for guidance on your medications or they may want to see you in their office. Keep a daily log of your weights and be sure to bring with you at follow up visits with your PCP and ict development manager. Take all of your medications as directed, especially your water pills. NEVER skip a dose. And remember to keep all of your doctor's appointments and follow- up as needed. Elevate your legs when you are not up moving around to help with circulation and prevent swelling. Compression stockings are also a great way to improve lower extremity circulation and prevent/improve lower extremity edema. Call your primary care provider and ict development manager if you notice any extra sw elling in your legs, ankles, feet or abdomen, if you have a new dry cough, if your shortness of breath worsens with activity or at rest, or if you feel more fatigued. Thank you for allowing us to participate in your care, it was truly a pleasure having you for our patient!!! No lifting, pushing, or pulling more than 10 pounds for 12 weeks, must shower daily Discharge Disposition: HOME WITH HOME HEALTH SERVICES
[2021-03-08 09:02] LABS: HCT 36.3 % (34.0-46.0); HGB 11.4 gm/dL (11.4-16.0); Hypochromasia Slight; MCH 25.5 pg (25.0-35.0); MCHC 31.2 g/dL (31.0-37.0); MCV 81.6 fL (80.0-100.0); Mean Platelet Volume 7.5; Platelet Count 470 k/uL (150-450); Poikilocytosis Slight; RBC 4.45 m/uL (3.80-5.40); RDW 14.5 % (11.5-15.5); WBC 8.5 k/uL (3.8-10.6)
[2021-03-08 09:15] LABS: Calcium 9.6 mg/dL (8.4-10.2); Magnesium 1.9 mg/dL (1.6-2.3); Potassium 4.1 mmol/L (3.5-5.1)
[2021-03-08] MEDS: HEPARIN SODIUM,PORCINE/PF 5,000 UNIT/0.5 ML SYRINGE SQ SCH ×3 (09:45→16:28)
[2021-03-08] MEDS: CLOPIDOGREL 75 MG TAB PO SCH (09:50)
[2021-03-08] MEDS: ASPIRIN 81 MG PO SCH (09:50)
[2021-03-08] MEDS: ALPRAZolam 1 MG TAB PO SCH ×2 (09:50→20:53)
[2021-03-08] MEDS: buPROPion 75 MG TAB PO SCH ×2 (09:50→20:54)
[2021-03-08] MEDS: METOPROLOL TARTRATE 25 MG TAB PO SCH ×2 (09:50→20:54)
[2021-03-08] MEDS: SERTRALINE 100 MG TAB PO SCH (09:50)
[2021-03-08] MEDS: LOSARTAN 25 MG TAB PO SCH (09:50)
[2021-03-08] MEDS: FUROSEMIDE 10 MG/ML 4 ML VIAL IV SCH ×2 (09:58→20:53)
--- NOTE | 2021-03-08 11:11 | P.PN ---
<Poncho Payne - Last Filed: 03/08/21 11:00> Subjective Progress Note Date: 03/08/21 Hospital Course: Patient is a 75-year-old female with a past medical history of CAD with recent CABG (triple bypass) on 01/25/21 on Plavix, hypertension, hyperlipidemia, and breast cancer status post right mastectomy in remission greater than 20 years. Patient presented to the emergency departmentwith complaints of nausea, vomiting, and epigastric pain. She was found to have elevated troponins status post her recent CABG. CT abdomen and pelvis negative for acute intra-abdominal process however revealing severe atherosclerotic aspirations of the abdominal aorta with dense calcifications at the origins of great vessels, colonic diverticulosis without evidence of diverticulitis, a grade 1 anterolisthesis of L4 on L5, hyperdense left renal lesion likely representing a cyst complicated by proteinaceous or hemorrhagic material, and small bilateral pleural effusions. EKG showing normal sinus rhythm at 74 bpm with a left bundle branch block. troponins elevated at0.037, 0.044, and 0.045. Echocardiogram: Showing a moderately to severely impaired EF of 30-35% with hypokinesis to apex this is significantly reduced from previous echocardiogram completed 01/22/21 which revealed an EF of 50-55%. Patient is admitted under our services along with consult cardiology. ProBNP resulting at 6110. Dorothy scan completed 03/06/21 did reveal an EF of 38% with a large left lateral wall fixed defect along with global hypokinesia and no reversible component identified. Patient was then seen and fully evaluated by cardiothoracic surgery and added in amlodipine as she needs a calcium channel maría for radial artery spasm prophylaxis for 6 months and recommending patient to continue maximize medical therapy with aspirin, statin, Plavix, beta maría, and ARB. Cardiothoracic surgery also recommending patient to continue sternal precautions for a total of 12 weeks with no lifting, pushing, or pulling anything heavier than 10 pounds. Physical exam: Patient was seen and fully evaluated at the bedside this morning. Patient ambulatory in room getting ready to take a shower. Patient reports she is ready to go home. She is 1950 mL of output over the past 24 hours, denies having any headache, lightheadedness, chest pain, palpitations, shortness of breath, or dyspnea with exertion. Patient does report that she does have a slight persistent cough that remains but also reports that it is improved over the past few days, she is also now reporting orthopnea as well. Vital signs reviewed and stable. BMP revealing slight elevation of BUN at 20 and creatinine 1.29, likely secondary to diuresing. we will continue to monitor renal function closely with repeat labs. . Vital signs reviewed and stable. General: Nontoxic, no distress and appears stated age. Derm: Skin warm and dry, normal coloration for ethnicity. Head: Atraumatic, normocephalic and symmetric. Eyes: EOMs intact, no lid lag, and anicteric sclera Mouth: no lip lesions, mucus membranes moist Cardiovascular: regular rate and rhythm with normal S1S2, no murmur, positive p osterior tibial pulses bilaterally, and cap refill < 2 seconds. No JVD, no lower extremity edema Lungs: Respirations even, regular, and unlabored on room air. Lungs CTA bilaterally, no rhonchi, no rales, no wheezing, and no accessory muscle usage. Abdominal: soft, nontender to palpation, no guarding, no appreciable organomegaly Ext: ROM intact. No gross muscle atrophy, no edema, no contractures Neuro: Speech clear, face symmetrical and CN II-XII grossly intact with no noted focal neuro deficits Psych: Alert and oriented to person, place, time, and situation. Appropriate and pleasant affect. Assessment and Plan of Care: Acute Systolic Heart Failure status post triple bypass 01/25/21, EF 30-35% Elevated troponin, likely non-thrombotic troponin leak, acute coronary event ruled out History of CAD with recent CABG -ProBNP 6110 -EKG showing normal sinus rhythm at 74 bpm with a left bundle branch block. -Troponins elevated at0.037, 0.044, and 0.045. -Echocardiogram: Showing a moderately to severely impaired EF of 30-35% with hypokinesis to apex this is significantly reduced from previous echocardiogram completed 01/22/21 which revealed an EF of 50-55%. -Dorothy scan completed 03/06/21 did reveal an EF of 38% with a large left lateral wall fixed defect along with global hypokinesia and no reversible component identified. -Cardiology following, recommending continued diuresing and consult to pulmonology -Continue daily aspirin, atorvastatin, Plavix, metoprolol and losartan -Telemetry monitoring. -Daily weights, close monitoring of I's and O's -Lasix 40 mg IVP every 12 hours -CardioThoracic surgery following and recommending patient to continue to maximize medical therapy with aspirin, statin, Plavix, beta maría, and ARB Hypertension -Monitor vital signs and continue daily medication regimen with losartan and metoprolol Hyperlipidemia -Continue daily medication regimen with atorvastatin 40 mg nightly. -Heart healthy diet CODE STATUS: Full code DVT prophylaxis: Heparin Discussed with: patient and RN Anticipated discharge date: Tentative plans for discharge tomorrow morning Anticipated discharge place: Home with [facility] A total of 45 minutes was spent on the care of this complex patient more than 50% of the time was spent in counseling and care coordination. Objective - Vital Signs Vital signs: Vital Signs Temp 98.4 F 03/08/21 08:25 Pulse 78 03/08/21 08:25 Resp 18 03/08/21 08:25 BP 117/57 03/08/21 08:25 Pulse Ox 95 03/08/21 08:25 Intake & Output 03/07/21 03/08/21 03/08/21 18:59 06:59 18:59 Intake Total 1080 Output Total 550 1100 150 Balance 530 -1100 -150 Weight 66.7 kg Intake: Oral 1080 Output: Urine 550 1100 150 Other: # Voids 1 1 - Labs CBC & Chem 7: 03/08/21 08:33 03/08/21 08:33 Labs: Abnormal Lab Results - Last 24 Hours (Table) 03/08/21 03/08/21 Range/Units 08:33 08:33 Plt Count 470 H (150-450) k/uL Sodium 136 L (137-145) mmol/L BUN 20 H (7-17) mg/dL Creatinine 1.29 H (0.52-1.04) mg/dL Glucose 207 H (74-99) mg/dL <Krissy Salmon - Last Filed: 03/08/21 17:52> Objective - Vital Signs Vital signs: Vital Signs Temp 98.6 F 03/08/21 16:39 Pulse 65 03/08/21 16:39 Resp 16 03/08/21 16:39 BP 113/71 03/08/21 16:39 Pulse Ox 94 L 03/08/21 16:39 Intake & Output 03/07/21 03/08/21 03/08/21 18:59 06:59 18:59 Intake Total 1080 476 Output Total 550 1100 650 Balance 530 1100 -526 Weight 66.7 kg 66.7 kg Intake: Oral 1080 476 Output: Urine 550 1100 650 Other: # Voids 1 1 - Labs CBC & Chem 7: 03/08/21 08:33 03/08/21 08:33 Labs: Abnormal Lab Results - Last 24 Hours (Table) 03/08/21 03/08/21 Range/Units 08:33 08:33 Plt Count 470 H (150-450) k/uL Sodium 136 L (137-145) mmol/L BUN 20 H (7-17) mg/dL Creatinine 1.29 H (0.52-1.04) mg/dL Glucose 207 H (74-99) mg/dL Assessment and Plan Assessment: I reviewed the documentation as provided by the MANSI above, who is the original author of this note. I agree with the documented assessment and plan, with the following changes: None
--- NOTE | 2021-03-08 11:30 | XR ---
EXAMINATION TYPE: XR chest 1V portable DATE OF EXAM: 03/08/2021 COMPARISON: 03/05/2021 HISTORY: Triple bypass postsurgical follow-up TECHNIQUE: Single frontal view of the chest is obtained. FINDINGS: Bilateral infiltrate and pleural effusion stable. No pneumothorax. Postsurgical changes. A therosclerotic change of the aorta. Diffuse osteopenia with arthropathy of the shoulders and degenera tive change of the spine. No overt failure. IMPRESSION: Stable bilateral infiltrate and pleural effusion.
[2021-03-08] MEDS: amLODIPine 5 MG TAB PO SCH (12:08)
[2021-03-08] MEDS: IPRATROPIUM-ALBUTEROL 3 ML NEB INHALATION SCH ×4 (12:23→23:25)
[2021-03-08 12:47] VITALS: BMI 29.7
--- NOTE | 2021-03-08 14:16 | P.CNPUL ---
History of Present Illness Consult date: 03/08/21 Requesting physician: Milton Khan Reason for consult: dyspnea, pleural effusion, abnormal CXR/CT Chief complaint: Shortness of breath, pleural effusions History of present illness: 75-year-old white female patient with recent history of non-ST elevated myocardial infarction, coronary artery disease, requiring off-pump three-vessel CABG on 01/25/2021, hyperthyroidism, borderline diabetes mellitus, hypertension, hyperlipidemia, history of breast cancer status post right mastectomy with c hemotherapy, diverticulitis status post colostomy and subsequent reversal, and previous history of smoking. Her postoperative care following her bypass surgery in January was uneventful, and patient went to [facility] for inpatient rehab after discharge. On 03/03/2021 patient came into the emergency department for evaluation of nausea, vomiting, and mild generalized abdominal pain. CT of the abdomen and pelvis showed no definite acute intra- abdominal process. Did show small bilateral pleural effusions, right greater than left. Admission blood work showed white blood cell count of 9.5, hemoglobin was 11.7, electrolytes in the renal profile were unremarkable, LFTs were unremarkable with the exception of slightly elevated alkaline phosphatase at 157, patient did have positive troponins of 0.037, 0.044, a 0.045, lipase was negative at 66, urinalysis showed no evidence of infection, COVID-19 PCR was negative, EKG showed sinus rhythm with a left bundle branch block, patient was seen by cardiology and her troponin elevation was not felt to be indicative of acute coronary syndrome. Echocardiogram showed moderately severely impaired LVEF of 30-35%. Chest x-ray from 03/05/2001 showed increasing [id number] effusions with adjacent atelectasis and/or consolidation. Clinically patient denied any fever, she has been afebrile. She is currently being diuresed. BNP was elevated at 6110. She is on Lasix 40 mg twice daily, she is in -570 mL net fluid balance over the last 24 hours. Follow-up chest x-ray shows stable bilateral infiltrates and pleural effusion. Clinically patient is breathing comfortably, she sits up in the chair, she is currently on room air with a pulse ox of 95%. Vital signs are stable, she is afebrile, today's labs have been reviewed, her white count is 8.5, hemoglobin is 11.4, electrolytes are within normal limits, B1 is 20 creatinine is 1.29. We are consulted in regards to persistent pleural effusions, however pleural effusions are very small, and there is no plans for thoracentesis. Review of Systems All systems: negative Constitutional: Denies chills, Denies fever Eyes: denies blurred vision, denies pain Ears, nose, mouth and throat: Denies headache, Denies sore throat Cardiovascular: Denies chest pain, Denies shortness of breath Respiratory: Reports dyspnea, Denies cough Gastrointestinal: Denies abdominal pain, Denies diarrhea, Denies nausea, Denies vomiting Genitourinary: Denies dysuria, Denies hematuria Musculoskeletal: Denies myalgias Integumentary: Denies pruritus, Denies rash Neurological: Denies numbness, Denies weakness Psychiatric: Denies anxiety, Denies depression Endocrine: Denies fatigue, Denies weight change Past Medical History Past Medical History: Coronary Artery Disease (CAD), Cancer, Hyperlipidemia, Hypertension, Memory Impairment, Myocardial Infarction ([place]), Osteoarthritis (OA) Additional Past Medical History / Comment(s): 01/25/21 CABG X3 Last Myocardial Infarction Date:: 01/21/21 History of Any Multi-Drug Resistant Organisms: None Reported Past Surgical History: Appendectomy, Bladder Surgery, Bowel Resection, Breast Surgery, Cholecystectomy, Coronary Bypass/CABG, Hysterectomy, Orthopedic Surgery, Tubal Ligation Additional Past Surgical History / Comment(s): cataractsurgery x2 with lens implants, masectomy on right breast, bowel resection with colostomy and reversal, bladder suspension, left knee replacement, skin cancer removed from right ear Past Anesthesia/Blood Transfusion Reactions: No Reported Reaction Past Psychological History: Depression Smoking Status: Unknown if ever smoked Past Alcohol Use History: None Reported Additional Past Alcohol Use History / Comment(s): pt. quit smoking many years ago, was a pack a day smoker for about 20 years, pt. lives [place] [address], pts. daughter helps her Past Drug Use History: None Reported Additional Drug Use History / Comment(s): Quit smoking 40 years ago; vaccinated against Covid with Knok vaccine, last dose June 2020 - Past Family History Father Family Medical History: AFIB, Congestive Heart Failure (CHF) Mother Family Medical History: Cancer Additional Family Medical History / Comment(s): breast cancer with mets Medications and Allergies Home Medications Medication Instructions Recorded Confirmed Type ALPRAZolam [Xanax] 1 mg PO DAILY@0800,2200 01/21/21 03/03/21 History Amitriptyline HCl [Elavil] 20 mg PO DAILY 01/21/21 03/03/21 History Cholecalciferol [Vitamin D3 (25 50 mcg PO DAILY@0800 01/21/21 03/03/21 History Mcg = 1000 Iu)] Rosuvastatin [Crestor] 20 mg PO HS@2200 01/21/21 03/03/21 History Sertraline [Zoloft] 100 mg PO DAILY@0800 01/21/21 03/03/21 History buPROPion [Wellbutrin] 75 mg PO DAILY@0800 01/21/21 03/03/21 History Acetaminophen Tab [Tylenol] 650 mg PO Q4HR PRN tab 01/30/21 03/03/21 Rx Clopidogrel [Plavix] 75 mg PO DAILY tab 01/30/21 03/03/21 Rx Melatonin 5 mg PO HS tablet 01/30/21 03/03/21 Rx Pantoprazole [Protonix] 40 mg PO AC-BRKFST tablet. 01/30/21 03/03/21 Rx amLODIPine [Norvasc] 5 mg PO DAILY@1200 tab 01/30/21 03/03/21 Rx methIMAzole [Tapazole] 15 mg PO DAILY tab 01/30/21 03/03/21 Rx Aspirin 81 mg PO DAILY tab 03/08/21 Rx Furosemide [Lasix] 40 mg PO BID 30 Days #60 tablet 03/08/21 Rx Losartan [Cozaar] 25 mg PO DAILY 30 Days #30 tab 03/08/21 Rx Metoprolol Tartrate [Lopressor] 25 mg PO BID 30 Days #60 tab 03/08/21 Rx Allergies Allergy/AdvReac Type Severity Reaction Status Date / Time No Known Allergies Allergy Verified 03/03/21 17:41 Physical Exam Vitals: Vital Signs Temp Pulse Resp BP Pulse Ox 03/08/21 13:24 78 18 03/08/21 12:20 98.4 F 78 18 117/57 95 03/08/21 12:00 70 16 128/71 93 L 03/08/21 09:00 78 18 03/08/21 08:25 98.4 F 78 18 117/57 95 03/08/21 04:00 98.3 F 60 16 134/74 93 L 03/08/21 02:00 62 18 03/07/21 23:59 97.6 F 62 18 116/61 95 03/07/21 20:00 99 F 71 18 133/71 95 03/07/21 16:00 98.3 F 65 18 125/73 97 03/07/21 14:00 74 18 Intake and Output 03/07/21 03/08/21 03/08/21 22:59 06:59 14:59 Intake Total 540 476 Output Total 750 600 150 Balance -210 -600 326 Intake: Oral 540 476 Output: Urine 750 600 150 Other: # Voids 1 1 Weight 66.7 kg 66.7 kg GENERAL EXAM: Alert, very pleasant, 75-year-old white female, on room air with pulse ox of 90%, comfortable in no apparent distress. HEAD: Normocephalic/atraumatic. EYES: Normal reaction of pupils, equal size. Conjunctiva pink, sclera white. NOSE: Clear with pink turbinates. THROAT: No erythema or exudates. NECK: No masses, no JVD, no thyroid enlargement, no adenopathy. CHEST: No chest wall deformity. Symmetrical expansion. Midsternal incision is clean dry, well-healed, sternum is stable LUNGS: Equal air entry with sounds and mild crackles at bilateral bases CVS: Regular rate and rhythm, normal S1 and S2, no gallops, no murmurs, no rubs ABDOMEN: Soft, nontender. No hepatosplenomegaly, normal bowel sounds, no guarding or rigidity. EXTREMITIES: No clubbing, no edema, no cyanosis, 2+ pulses and upper and lower extremities. MUSCULOSKELETAL: Muscle strength and tone normal. SPINE: No scoliosis or deformity SKIN: No rashes CENTRAL NERVOUS SYSTEM: Alert and oriented -3. No focal deficits, tone is normal in all 4 extremities. PSYCHIATRIC: Alert and oriented -3. Appropriate affect. Intact judgment and insight. Results - Laboratory Findings CBC and BMP: 03/08/21 08:33 03/08/21 08:33 PT/INR, D-dimer PT 11.2 sec (9.0-12.0) 03/06/21 07:06 INR 1.1 (<1.2) 03/06/21 07:06 Abnormal lab findings: Abnormal Labs 03/03/21 03/03/21 03/03/21 16:56 16:56 16:56 Hgb Hct MCV 79.6 L D Plt Count Lymphocytes # 0.7 L APTT Sodium BUN Creatinine Glucose 154 H Alkaline Phosphatase 137 H Troponin I Total Protein Albumin Urine Protein Trace H 03/03/21 03/03/21 03/03/21 16:56 16:56 19:09 Hgb Hct MCV Plt Count Lymphocytes # APTT 18.4 L Sodium BUN Creatinine Glucose Alkaline Phosphatase Troponin I 0.037 H* 0.044 H* Total Protein Albumin Urine Protein 03/03/21 03/04/21 03/04/21 23:05 04:25 04:25 Hgb 10.8 L Hct 33.4 L MCV Plt Count Lymphocytes # APTT 41.6 H Sodium BUN Creatinine Glucose Alkaline Phosphatase Troponin I 0.045 H* Total Protein Albumin Urine Protein 03/04/21 03/04/21 03/06/21 04:25 12:01 07:06 Hgb Hct MCV Plt Count Lymphocytes # APTT 42.6 H Sodium BUN Creatinine Glucose 102 H 133 H Alkaline Phosphatase Troponin I Total Protein 5.8 L Albumin 3.3 L Urine Protein 03/06/21 03/07/21 03/08/21 07:06 09:25 08:33 Hgb 11.3 L Hct MCV Plt Count 470 H Lymphocytes # APTT Sodium BUN Creatinine Glucose 137 H Alkaline Phosphatase Troponin I Total Protein Albumin Urine Protein 03/08/21 08:33 Hgb Hct MCV Plt Count Lymphocytes # APTT Sodium 136 L BUN 20 H Creatinine 1.29 H Glucose 207 H Alkaline Phosphatase Troponin I Total Protein Albumin Urine Protein - Diagnostic Findings Chest x-ray: report reviewed, image reviewed Additional studies: Echocardiogram, chest x-ray, CT of the abdomen and pelvis results have been reviewed. Assessment and Plan Plan: Assessment: #1. Acute hypoxic respiratory failure related to acute exacerbation of systolic CHF #2. Small bilateral pleural effusions, continue medical therapy, no plans for thoracentesis #3. Nausea and vomiting on presentation, CT of the abdomen and pelvis showing no acute intra-abdominal process #4. Troponin leak, of unclear significance, and cardiology is following please refer to the consultation and progress note #5. Coronary artery disease status post off-pump CABG 3 with a WESLEY to the LAD, left radial artery graft to the up to his marginal, reverse SVG to the posterior lateral branch of the right coronary artery, and exclusion of the left atrial appendage on 01/25/2021 #6. Hypertension #7. Hyperlipidemia #8. Former tobacco smoker #9. History of diverticulitis, status post bowel resection, colostomy, with subsequent reversal #10. Former smoking history Plan: Follow-up chest x-ray has been reviewed Pleural effusions are very small, no plans for thoracentesis Continue medical therapy She could be switched to oral Lasix and cleared for discharge home from pulmonary perspective Outpatient follow-up with Dr. Bernal in the office in 7 days I performed a history & physical examination of the patient and discussed their management with my nurse practitioner, Shelley Hathaway. I reviewed the nurse practitioner's note and agree with the documented findings and plan of care. Lung sounds are positive for diminished breath sounds. throughout the lung hanson. The findings and the impression was discussed with the patient. I attest to the documentation by the nurse practitioner. Time with Patient: Greater than 30
--- NOTE | 2021-03-08 14:31 | P.PN ---
Subjective This is a pleasant 75-year-old female past medical history significant for hypertension, hyperlipidemia, former nicotine dependence, hyperthyroidism, recent NSTEMI (01/2021), coronary artery disease s/p 3 vessel CABG on 01/25/[address] Flores, breast cancer status post right mastectomy with chemotherapy approximately 25 years ago without radiation, colostomy for bowel rest status post reversal . She follows with Dr. Hess. She came in for GI type symptoms with a mild elevation in her troponin. Echocardiogram obtained revealed impaired LV systolic function with EF 30-35% with apical hypokinesia. She is seen and examined sitting up in the recliner chair in no acute distress. She denies chest pain. She is coughing that started as mostly dry yesterday but she is now bringing up some thick yellow sputum. She does have some shortness of breath when she is coughing. Blood pressure 123/58 heart rate 69 afebrile maintaining oxygen saturation on room air. NTproBNP 6110. 03/08/21 Patient seen and examined sitting up in the recliner chair. She states she continues to feel short of breath at night when she is trying to lay flat. She had to sleep sitting up in the recliner chair again. She states her exertional shortness of breath seems to have improved. She continues to cough with green sputum, she is also wheezing. Chest x-ray this morning revealed bilateral pleural effusions which were new from her prior admission for CABG. She has had no further symptoms of epigastric or abdominal discomfort. Lexiscan stress test revealed a predominantly fixed defect with cardiomyopathy noted and no significant reversibility. She continues to be maintained on IV Lasix 40mg BID , output documentation 1.6L output over the past 24 hours. The patient herself states she is up urinating very frequently. Blood pressure 117/57, heart rate 70, afebrile, maintaining oxygen saturations on room air. Laboratory data reviewed, WBC 0.5, hemoglobin 11.4, platelets 470, sodium 136, potassium 4.1, BUN 20, serum creatinine 1.2 Telemetry tracings reviewed, she is maintaining sinus rhythm with no further ventricular arrhythmias noted. GENERAL: Well-appearing, well-nourished and in no acute distress. NECK: Supple without JVD or thyromegaly. LUNGS: Breath sounds bilateral wheezes to auscultation bilaterally. Respiration equal and unlabored. HEART: Regular rate and rhythm without murmurs, rubs or gallops. S1 and S2 heard. EXTREMITIES: Normal range of motion, no edema. No clubbing or cyanosis. Peripheral pulses intact. ASSESSMENT Epigastric pain Troponin leak of unclear significance. Acute systolic heart failure s/p CABG Coronary artery disease s/p 01/25/21 CABG 3 with WESLEY to the LAD, left radial artery graft to the obtuse marginal coronary artery, reverse saphenous vein graft to the posterior lateral branch of the right coronary artery, Exclusion of the left atrial appendage Hypertension Hyperlipidemia Non-sustained monomorphic ventricular tachycardia Former tobacco smoker History of colostomy for bowel rest status post reversal History of breast cancer status post right mastectomy with chemotherapy approximately 25 years ago without radiation, Bilateral pleural effusions which are new from prior Chest Xray in January 2021 PLAN Patient continues to have symptoms of orthopnea, shortness of breath, cough with green sputum. Bilateral pleural effusions which are new from prior Chest Xray after her CABG in january 2021. She continues to be symptomatic even with diuresis Start nikolay Recommend pulmonary consult, appreciate recommendations Will continue IV Lasix 40mg BID Follow renal function and electrolytes in the morning. Further recommendations to follow based upon clinical course. Nurse Practitioner note has been reviewed, I agree with a documented findings and plan of care. Patient was seen and examined. Objective - Vital Signs Vital signs: Vital Signs Temp 98.4 F 03/08/21 08:25 Pulse 78 03/08/21 08:25 Resp 18 03/08/21 08:25 BP 117/57 03/08/21 08:25 Pulse Ox 95 03/08/21 08:25 Intake & Output 03/07/21 03/08/21 03/08/21 18:59 06:59 18:59 Intake Total 1080 Output Total 550 1100 150 Balance 530 -1100 -150 Weight 66.7 kg Intake: Oral 1080 Output: Urine 550 1100 150 Other: # Voids 1 1 - Labs CBC & Chem 7: 03/08/21 08:33 03/08/21 08:33 Labs: Abnormal Lab Results - Last 24 Hours (Table) 03/08/21 03/08/21 Range/Units 08:33 08:33 Plt Count 470 H (150-450) k/uL Sodium 136 L (137-145) mmol/L BUN 20 H (7-17) mg/dL Creatinine 1.29 H (0.52-1.04) mg/dL Glucose 207 H (74-99) mg/dL
[2021-03-08] MEDS: methIMAzole 5 MG TAB PO SCH (20:54)
[2021-03-08] MEDS: ATORVASTATIN 40 MG TAB PO SCH (20:54)
[2021-03-08] MEDS: AMITRIPTYLINE HCL 10 MG TAB PO SCH (20:54)
[2021-03-09] MEDS: HEPARIN SODIUM,PORCINE/PF 5,000 UNIT/0.5 ML SYRINGE SQ SCH ×2 (01:37→08:03)
[2021-03-09] MEDS: IPRATROPIUM-ALBUTEROL 3 ML NEB INHALATION SCH ×4 (03:26→15:37)
[2021-03-09 03:50] VITALS: TEMP 98.1
[2021-03-09] MEDS: PANTOPRAZOLE 40 MG TABLET PO SCH (06:35)
[2021-03-09 08:01] VITALS: RESP 18
[2021-03-09] MEDS: SERTRALINE 100 MG TAB PO SCH (08:02)
[2021-03-09] MEDS: ASPIRIN 81 MG PO SCH (08:02)
[2021-03-09] MEDS: LOSARTAN 25 MG TAB PO SCH (08:02)
[2021-03-09] MEDS: CLOPIDOGREL 75 MG TAB PO SCH (08:02)
[2021-03-09] MEDS: ALPRAZolam 1 MG TAB PO SCH (08:02)
[2021-03-09] MEDS: METOPROLOL TARTRATE 25 MG TAB PO SCH (08:02)
[2021-03-09] MEDS: buPROPion 75 MG TAB PO SCH (08:03)
[2021-03-09] MEDS: FUROSEMIDE 10 MG/ML 4 ML VIAL IV SCH (08:03)
[2021-03-09 09:22] LABS: HCT 38.6 % (34.0-46.0); HGB 11.9 gm/dL (11.4-16.0); Hypochromasia Moderate; MCHC 30.9 g/dL (31.0-37.0); MCV 84.1 fL (80.0-100.0); Mean Platelet Volume 7.4; Platelet Count 380 k/uL (150-450); RBC 4.59 m/uL (3.80-5.40); RDW 14.4 % (11.5-15.5); WBC 7.4 k/uL (3.8-10.6)
[2021-03-09 09:36] LABS: Calcium 9.6 mg/dL (8.4-10.2); Magnesium 2.1 mg/dL (1.6-2.3); Potassium 3.9 mmol/L (3.5-5.1)
[2021-03-09 11:19] VITALS: BP 112/68
[2021-03-09] MEDS: amLODIPine 5 MG TAB PO SCH (11:19)
--- NOTE | 2021-03-09 13:26 | P.PN ---
Subjective This is a pleasant 75-year-old female past medical history significant for hypertension, hyperlipidemia, former nicotine dependence, hyperthyroidism, recent NSTEMI (01/2021), coronary artery disease s/p 3 vessel CABG on 01/25/[address] Flores, breast cancer status post right mastectomy with chemotherapy approximately 25 years ago without radiation, colostomy for bowel rest status post reversal . She follows with Dr. Hess. She came in for GI type symptoms with a mild elevation in her troponin. Echocardiogram obtained revealed impaired LV systolic function with EF 30-35% with apical hypokinesia. She is seen and examined sitting up in the recliner chair in no acute distress. She denies chest pain. She is coughing that started as mostly dry yesterday but she is now bringing up some thick yellow sputum. She does have some shortness of breath when she is coughing. Blood pressure 123/58 heart rate 69 afebrile maintaining oxygen saturation on room air. NTproBNP 6110. 03/08/21 Patient seen and examined sitting up in the recliner chair. She states she continues to feel short of breath at night when she is trying to lay flat. She had to sleep sitting up in the recliner chair again. She states her exertional shortness of breath seems to have improved. She continues to cough with green sputum, she is also wheezing. Chest x-ray this morning revealed bilateral pleural effusions which were new from her prior admission for CABG. She has had no further symptoms of epigastric or abdominal discomfort. Lexiscan stress test revealed a predominantly fixed defect with cardiomyopathy noted and no significant reversibility. She continues to be maintained on IV Lasix 40mg BID , output documentation 1.6L output over the past 24 hours. The patient herself states she is up urinating very frequently. Blood pressure 117/57, heart rate 70, afebrile, maintaining oxygen saturations on room air. Laboratory data reviewed, WBC 0.5, hemoglobin 11.4, platelets 470, sodium 136, potassium 4.1, BUN 20, serum creatinine 1.2 Telemetry tracings reviewed, she is maintaining sinus rhythm with no further ventricular arrhythmias noted. 03/09 Patient seen and examined. Patient states she felt much better with the inhalers. Pulmonology evaluated patient and felt it was not related to pulmonary source and mainly heart failure. Unfortunately however we have been continuing to diurese her and her kidney function has been going up and with overdiuresis. We therefore will change to maintenance oral Lasix 20 mg daily. She is still having some feeling short of breath when she lays flat, may be related to bronchospasm or pleural effusions after bypass surgery. She is feeling good enough to go home. GENERAL: Well-appearing, well-nourished and in no acute distress. NECK: Supple without JVD or thyromegaly. LUNGS: Breath sounds bilateral wheezes to auscultation bilaterally. Respiration equal and unlabored. HEART: Regular rate and rhythm without murmurs, rubs or gallops. S1 and S2 heard. EXTREMITIES: Normal range of motion, no edema. No clubbing or cyanosis. Peripheral pulses intact. ASSESSMENT Epigastric pain Troponin leak of unclear significance. Acute systolic heart failure s/p CABG Coronary artery disease s/p 01/25/21 CABG 3 with WESLEY to the LAD, left radial artery graft to the obtuse marginal coronary artery, reverse saphenous vein graft to the posterior lateral branch of the right coronary artery, Exclusion of the left atrial appendage Hypertension Hyperlipidemia Non-sustained monomorphic ventricular tachycardia Former tobacco smoker History of colostomy for bowel rest status post reversal History of breast cancer status post right mastectomy with chemotherapy approximately 25 years ago without radiation, Bilateral pleural effusions which are new from prior Chest Xray in January 2021 PLAN BUN and creatinine have been increasing over the last 2 days despite diuresis. Do not feel she is in heart failure currently and suspect pleural effusions related to bypass surgery although they are increased from when she was discharged. Her main symptoms of shortness breath, cough and green sputum are more concerning for pulmonary source. Would recommend continued inhalers going home. Continue on maintenance Lasix 20 mg daily. Ideally optimize heart failure regimen and uptitrate as able however blood pressures have been borderline. Patient appears stable for discharge home from a cardiology standp oint. Follow-up in office in 1 week. Objective - Vital Signs Vital signs: Vital Signs Temp 98.1 F 03/09/21 11:18 Pulse 72 03/09/21 12:03 Resp 18 03/09/21 11:18 BP 112/68 03/09/21 11:18 Pulse Ox 96 03/09/21 11:18 Intake & Output 03/08/21 03/09/21 03/09/21 18:59 06:59 18:59 Intake Total 594 Output Total 650 1000 Balance -56 -1000 Weight 66.7 kg 66.2 kg Intake: Oral 594 Output: Urine 650 1000 Other: # Voids 2 - Labs CBC & Chem 7: 03/09/21 08:58 03/09/21 08:58 Labs: Abnormal Lab Results - Last 24 Hours (Table) 03/09/21 03/09/21 Range/Units 08:58 08:58 MCHC 30.9 L (31.0-37.0) g/dL BUN 20 H (7-17) mg/dL Creatinine 1.38 H (0.52-1.04) mg/dL Glucose 214 H (74-99) mg/dL
--- NOTE | 2021-03-09 14:11 | P.DS ---
<Poncho Payne - Last Filed: 03/09/21 14:08> Providers Expected date of discharge: 03/09/21 Hospital Course: Discharge Diagnosis: Acute Systolic Heart Failure status post triple bypass 01/25/21, EF 30-35% Elevated troponin, likely non-thrombotic troponin leak, acute coronary event ruled out History of CAD with recent CABG Hypertension Hyperlipidemia Hospital Course: Patient is a 75-year-old female with a past medical history of CAD with recent CABG (triple bypass) on 01/25/21 on Plavix, hypertension, hyperlipidemia, and breast cancer status post right mastectomy in remission greater than 20 years. Patient presented to the emergency departmentwith complaints of nausea, vomiting, and epigastric pain. She was found to have elevated troponins status post her recent CABG. CT abdomen and pelvis negative for acute intra-abdominal process however revealing severe atherosclerotic aspirations of the abdominal aorta with dense calcifications at the origins of great vessels, colonic diverticulosis without evidence of diverticulitis, a grade 1 anterolisthesis of L4 on L5, hyperdense left renal lesion likely representing a cyst complicated by proteinaceous or hemorrhagic material, and small bilateral pleural effusions. EKG showing normal sinus rhythm at 74 bpm with a left bundle branch block. tro ponins elevated at0.037, 0.044, and 0.045. Echocardiogram: Showing a moderately to severely impaired EF of 30-35% with hypokinesis to apex this is significantly reduced from previous echocardiogram completed 01/22/21 which revealed an EF of 50-55%. Patient is admitted under our services along with consult cardiology. ProBNP resulting at 6110. Dorothy scan completed 03/06/21 did reveal an EF of 38% with a large left lateral wall fixed defect along with global hypokinesia and no reversible component identified. Patient was then seen and fully evaluated by cardiothoracic surgery and added in amlodipine as she needs a calcium channel maría for radial artery spasm prophylaxis for 6 months and recommending patient to continue maximize medical therapy with aspirin, statin, Plavix, beta maría, and ARB. Cardiothoracic surgery also recommending patient to continue sternal precautions for a total of 12 weeks with no lifting, pushing, or pulling anything heavier than 10 pounds. Patient is stable for discharge home with [facility] at this time. In addition to resuming amlodipine, patient is being discharged home on Lasix 40 mg by mouth twice daily, metoprolol 25 mg twice daily, losartan 25 mg daily, and aspirin 81 mg daily. Patient given prescription to have labs drawn on Thursday morning and instructed of importance of monitoring renal function secondary to slightly elevated BUN and creatinine which is likely secondary to IV diuresis and initiation of losartan this admission. These results to be sent to PCP and cardiology for follow-up and further adjustments may be made to oral diuretics and medications at that time. Physical exam: Patient was seen and fully evaluated at the bedside this morning. Patient ambulatory in room getting ready to take a shower. Patient reports she is ready to go home. She is 1950 mL of output over the past 24 hours, denies having any headache, lightheadedness, chest pain, palpitations, shortness of breath, or dyspnea with exertion. Patient does report that she does have a slight persistent cough that remains but also reports that it is improved over the past few days, she is also now reporting orthopnea as well. Vital signs reviewed and stable. BMP revealing slight elevation of BUN at 20 and creatinine 1.29, likely secondary to diuresing. we will continue to monitor renal function closely with repeat labs. . Vital signs reviewed and stable. General: Nontoxic, no distress and appears stated age. Derm: Skin warm and dry, normal coloration for ethnicity. Head: Atraumatic, normocephalic and symmetric. Eyes: EOMs intact, no lid lag, and anicteric sclera Mouth: no lip lesions, mucus membranes moist Cardiovascular: regular rate and rhythm with normal S1S2, no murmur, positive posterior tibial pulses bilaterally, and cap refill < 2 seconds. No JVD, no lower extremity edema Lungs: Respirations even, regular, and unlabored on room air. Lungs CTA bilaterally, no rhonchi, no rales, no wheezing, and no accessory muscle usage. Abdominal: soft, nontender to palpation, no guarding, no appreciable organomegaly Ext: ROM intact. No gross muscle atrophy, no edema, no contractures Neuro: Speech clear, face symmetrical and CN II-XII grossly intact with no noted focal neuro deficits Psych: Alert and oriented to person, place, time, and situation. Appropriate and pleasant affect. A total of 45 minutes of time were spent preparing this complex discharge summary. Patient Condition at Discharge: Stable Plan - Discharge Summary Discharge Rx Participant: Yes New Discharge Prescriptions: New Losartan [Cozaar] 25 mg PO DAILY 30 Days #30 tab Aspirin 81 mg PO DAILY tab Furosemide [Lasix] 40 mg PO BID 30 Days #60 tablet Metoprolol Tartrate [Lopressor] 25 mg PO BID 30 Days #60 tab Continue Rosuvastatin [Crestor] 20 mg PO HS@2200 buPROPion [Wellbutrin] 75 mg PO DAILY@0800 Amitriptyline HCl [Elavil] 20 mg PO DAILY Cholecalciferol [Vitamin D3 (25 Mcg = 1000 Iu)] 50 mcg PO DAILY@0800 Melatonin 5 mg PO HS tablet amLODIPine [Norvasc] 5 mg PO DAILY@1200 tab Clopidogrel [Plavix] 75 mg PO DAILY tab Pantoprazole [Protonix] 40 mg PO AC-BRKFST tablet. methIMAzole [Tapazole] 15 mg PO DAILY tab Acetaminophen Tab [Tylenol] 650 mg PO Q4HR PRN tab PRN Reason: Fever And/ Or Pain Sertraline [Zoloft] 100 mg PO DAILY@0800 ALPRAZolam [Xanax] 1 mg PO DAILY@0800,2200 Discontinued Aspirin 325 mg PO DAILY tab Metoprolol Tartrate [Lopressor] 12.5 mg PO BID tab Discharge Medication List ALPRAZolam [Xanax] 1 mg PO DAILY@0800,2200 01/21/21 [History] Amitriptyline HCl [Elavil] 20 mg PO DAILY 01/21/21 [History] Cholecalciferol [Vitamin D3 (25 Mcg = 1000 Iu)] 50 mcg PO DAILY@0800 01/21/21 [History] Rosuvastatin [Crestor] 20 mg PO HS@219901/21/21 [History] Sertraline [Zoloft] 100 mg PO DAILY@0800 01/21/21 [History] buPROPion [Wellbutrin] 75 mg PO DAILY@0800 01/21/21 [History] Acetaminophen Tab [Tylenol] 650 mg PO Q4HR PRN tab 01/30/21 [Rx] Clopidogrel [Plavix] 75 mg PO DAILY tab 01/30/21 [Rx] Melatonin 5 mg PO HS tablet 01/30/21 [Rx] Pantoprazole [Protonix] 40 mg PO AC-BRKFST tablet. 01/30/21 [Rx] amLODIPine [Norvasc] 5 mg PO DAILY@1200 tab 01/30/21 [Rx] methIMAzole [Tapazole] 15 mg PO DAILY tab 01/30/21 [Rx] Aspirin 81 mg PO DAILY tab 03/08/21 [Rx] Furosemide [Lasix] 40 mg PO BID 30 Days #60 tablet 03/08/21 [Rx] Losartan [Cozaar] 25 mg PO DAILY 30 Days #30 tab 03/08/21 [Rx] Metoprolol Tartrate [Lopressor] 25 mg PO BID 30 Days #60 tab 03/08/21 [Rx] Follow up Appointment(s)/Referral(s): Brian Hess MD [STAFF PHYSICIAN] - 03/25/21 1:45 pm (@ [facility]) Denys Flores MD [STAFF PHYSICIAN] - 03/21/21 1:15 pm () [facility], [NON-STAFF] - Brian Foster DO [Primary Care Provider] - 1-2 days (office closed - please call to make an appointment) Ambulatory/Diagnostic Orders: Basic Metabolic Panel [LAB.AMB] Time Frame: 3 Days, Location: None Selected Basic Metabolic Panel [LAB.AMB] Time Frame: 2 Days, Location: None Selected Magnesium [LAB.AMB] Location: None Selected Magnesium [LAB.AMB] Time Frame: 3 Days, Location: None Selected TSH, 3rd Generation [LAB.AMB] Location: None Selected Patient Instructions/Handouts: Heart Failure (DC) Activity/Diet/Wound Care/Special Instructions: Activity: As tolerated. Take breaks as needed. Diet: Heart healthy and carb consistent diet. Avoid salts, or foods with hidden salts such as canned or boxed foods and frozen dinners. Extra salt makes your heart work harder and traps the fluid in your body for longer. Special Instructions: Weigh yourself every morning after you urinate. If you gain 3 pounds overnight or more than 5 pounds in one week, call your primary physician and carrier blower for guidance on your medications or they may want to see you in their office. Keep a daily log of your weights and be sure to bring with you at follow up visits with your PCP and carrier blower. Take all of your medications as directed, especially your water pills. NEVER skip a dose. And remember to keep all of your doctor's appointments and follow- up as needed. Elevate your legs when you are not up moving around to help with circulation and prevent swelling. Compression stockings are also a great way to improve lower extremity circulation and prevent/improve lower extremity edema. Call your primary care provider and carrier blower if you notice any extra swelling in your legs, ankles, feet or abdomen, if you have a new dry cough, if your shortness of breath worsens with activity or at rest, or if you feel more fatigued. Thank you for allowing us to participate in your care, it was truly a pleasure having you for our patient!!! Maintain Sternal Precautions........No lifting, pushing, or pulling more than 10 pounds for 12 weeks, must shower daily. Discharge Disposition: HOME WITH HOME HEALTH SERVICES <Leny Awad - Last Filed: 03/09/21 17:19> Providers Date of admission: 03/05/21 12:19 Attending physician: Ramos Catherine MD Consults: 03/03/21 20:33 Consult Physician Urgent Consulting Provider: Brian Hess Consult Reason/Comments: Elevated troponin Do you want consulting provider notified?: Already Contacted 03/06/21 07:10 Consult Physician Routine Consulting Provider: Denys Flores Consult Reason/Comments: pt status post triple bypass Do you want consulting provider notified?: Yes 03/08/21 10:38 Consult Physician Routine Consulting Provider: Hu Glover Consult Reason/Comments: re: pleural effusion, persistent cough since CABG with sputum Do you want consulting provider notified?: Yes Primary care physician: [facility] Course: Patient seen and examined independently. Patient was also seen by Poncho Payne NP and case was discussed. I am in agreement with discharge diagnosis, hospital course, and physical exam as written above and amended below. No additional chest pain or shortness of breath. We had a long discussion about need for monitoring her symptoms for heart failure. We went through the heart failure booklet. General: non toxic, no distress, appears at stated age Derm: warm, dry Head: atraumatic, normocephalic, symmetric Eyes: EOMI, no lid lag, anicteric sclera Mouth: no lip lesion, mucus membranes moist Cardiovascular: S1S2 reg, no murmur, positive posterior tibial pulse bilateral, Lungs: CTA bilateral, no rhonchi, no rales , no accessory muscle use Abdominal: soft, nontender to palpation, no guarding, no appreciable organomegaly Ext: no gross muscle atrophy, no edema, no contractures Neuro: CN II-XI grossly intact, no focal neuro deficits Psych: Alert, oriented, appropriate affect
[2021-03-09 15:52] VITALS: PULSE 72
== END 2021-03-09 15:57 | disposition home health service (06) | DRG 291 ==
LOC: EC 16:18 → 3SCARD 20:39 → OBSVTOIN 03-05 12:19
PROVIDERS: ADMIT Internal Medicine; ATTEND Internal Medicine
DX: I11.0 Hypertensive heart disease with heart failure (principal); J96.01 Acute respiratory failure with hypoxia; I50.21 Acute systolic (congestive) heart failure; I25.810 Atherosclerosis of coronary artery bypass graft(s) without angina pectoris; I47.2 Ventricular tachycardia; R79.89 Other specified abnormal findings of blood chemistry; Z20.822 Contact with and (suspected) exposure to COVID-19; E05.90 Thyrotoxicosis, unspecified without thyrotoxic crisis or storm; K57.30 Diverticulosis of large intestine without perforation or abscess without bleeding; E78.5 Hyperlipidemia, unspecified; F32.9 Major depressive disorder, single episode, unspecified; I25.10 Atherosclerotic heart disease of native coronary artery without angina pectoris; N28.1 Cyst of kidney, acquired; I70.0 Atherosclerosis of aorta; M43.16 Spondylolisthesis, lumbar region; K76.89 Other specified diseases of liver; I25.2 Old myocardial infarction; I42.9 Cardiomyopathy, unspecified; I44.7 Left bundle-branch block, unspecified; R11.2 Nausea with vomiting, unspecified; R73.03 Prediabetes; Z79.02 Long term (current) use of antithrombotics/antiplatelets; Z79.82 Long term (current) use of aspirin; Z79.899 Other long term (current) drug therapy; Z85.3 Personal history of malignant neoplasm of breast; Z85.828 Personal history of other malignant neoplasm of skin; Z87.891 Personal history of nicotine dependence; Z90.11 Acquired absence of right breast and nipple; Z90.49 Acquired absence of other specified parts of digestive tract; Z90.710 Acquired absence of both cervix and uterus; Z93.3 Colostomy status; Z96.1 Presence of intraocular lens; Z96.652 Presence of left artificial knee joint; Z87.19 Personal history of other diseases of the digestive system
CPT/HCPCS: 36415; 71045; 71046; 74177; 78452; 80048; 80053; 81003; 83690; 83735; 83880; 84484; 85025; 85027; 85610; 85730; 87635; 93005; 93017; 93306; 94640; 96374; 96375; 96376; 99285

== ENCOUNTER 2021-03-14 22:25 | Inpatient (IN) | payer MEDICARE ==
[2021-03-14 23:18] LABS: Basophils # (A) 0.1 k/uL (0-0.2); Basophils % (A) 1 %; Eosinophils # (A) 0.9 k/uL (0-0.7); Eosinophils % (A) 9 %; HCT 36.7 % (34.0-46.0); HGB 12.1 gm/dL (11.4-16.0); Lymphocytes # (A) 1.3 k/uL (1.0-4.8); Lymphocytes % (A) 13 %; MCH 25.5 pg (25.0-35.0); MCHC 32.9 g/dL (31.0-37.0); Mean Platelet Volume 7.7; Monocytes # (A) 0.6 k/uL (0-1.0); Monocytes % (A) 6 %; Neutrophils % (A) 70 %; Platelet Count 392 k/uL (150-450); RBC 4.73 m/uL (3.80-5.40); RDW 14.6 % (11.5-15.5)
[2021-03-14 23:27] LABS: MCV 77.5 fL (80.0-100.0)
[2021-03-14 23:33] LABS: Partial Thromboplastin Time 22.3 sec (22.0-30.0); Prothrombin Time 10.6 sec (9.0-12.0)
[2021-03-14 23:35] LABS: Albumin 4.1 g/dL (3.5-5.0); Calcium 9.7 mg/dL (8.4-10.2); Magnesium 2.2 mg/dL (1.6-2.3); Total Bilirubin 0.6 mg/dL (0.2-1.3); Total Protein 6.9 g/dL (6.3-8.2)
--- NOTE | 2021-03-14 23:35 | XR ---
EXAMINATION TYPE: XR chest 2V DATE OF EXAM: 03/14/2021 COMPARISON: 03/08/2021 HISTORY: Chest pain TECHNIQUE: FINDINGS: Heart is slightly enlarged. There is blunting of the costophrenic angles. There is mild con gestion. There are chest leads. IMPRESSION: Mild heart failure with mild to moderate pleural effusions. No change compared to old exa m.
[2021-03-14] MEDS ORDERED: MORPHINE SULFATE 4 MG/ML SYRINGE IV STA (23:46)
[2021-03-14] MEDS ORDERED: SODIUM CHLORIDE 0.9% 500 ML 250 ML IV STA (23:49)
[2021-03-15] MEDS ORDERED: MORPHINE SULFATE 4 MG/ML SYRINGE IV PRN (01:25)
[2021-03-15] MEDS ORDERED: NITROGLYCERIN SL TABS 0.4 MG TAB SUBLINGUAL PRN (01:25)
[2021-03-15] MEDS ORDERED: ACETAMINOPHEN TAB 325 MG TAB PO PRN (01:32)
[2021-03-15] MEDS ORDERED: SODIUM CHLORIDE 0.9% 500 ML 250 ML IV ONE (03:33)
[2021-03-15] MEDS: SODIUM CHLORIDE 0.9% 1,000 ML IV SCH (04:42)
[2021-03-15] MEDS ORDERED: HEPARIN SODIUM 1,000 UN/ML (10ML VL) IV PRN (04:47)
[2021-03-15] MEDS ORDERED: HEPARIN SODIUM 1,000 UN/ML (10ML VL) IV ONE (04:47)
--- NOTE | 2021-03-15 05:09 | P.HPIM ---
History of Present Illness H&P Date: 03/15/21 Chief Complaint: SOB, chest pain 75 year old female with ischemic cardiomyopathy , s/p CABG 1 month ago patient comes in after discharge about a week ago for which she was admitted for nausea vomiting and acute CHF exacerbation. patient since then has been kept on diuretics., today she reports worsening symptoms of generalized weakness retrosternal and epigastric chest discomfort, but no SOB when resting and sitting down, no diaphoresis , no nausea or vomting, however she does describe orthopnea and PNDs, reports chronic cough unchanged , no fever or chills. denies GI bleeding her daughter checks her vitals daily and noticed that today her heart rate was tachycardic. she denies any leg edema , she has been very strict with liquid intake limited to 16 oz daily from free water. in the ED CXR unchanged from before showing mild CHF. blood work showed BNP lower than baseline, but Trops initially at baseline, then trended up. and worsening renal function patient did have a stress test done last admission and did not show reversible ischemia she claims to be compliant with her meds, she was also found to have borderline low normal blood pressure, EKG showed LBBB with sinus tachycardia . she just started having home care visiting today . but she reports generalized weakness and progressive exertional dyspnea , not at rest though Review of Systems Pertinent positives as noted in HPI. All other systems were reviewed and are negative Past Medical History Past Medical History: Coronary Artery Disease (CAD), Cancer, Hyperlipidemia, Hypertension, Memory Impairment, Myocardial Infarction (NH), Osteoarthritis (OA) Additional Past Medical History / Comment(s): 01/25/21 CABG X3 Last Myocardial Infarction Date:: 01/21/21 History of Any Multi-Drug Resistant Organisms: None Reported Past Surgical History: Appendectomy, Bladder Surgery, Bowel Resection, Breast Surgery, Cholecystectomy, Coronary Bypass/CABG, Hysterectomy, Orthopedic Surgery, Tubal Ligation Additional Past Surgical History / Comment(s): cataractsurgery x2 with lens implants, masectomy on right breast, bowel resection with colostomy and reversal, bladder suspension, left knee replacement, skin cancer removed from right ear Past Anesthesia/Blood Transfusion Reactions: No Reported Reaction Past Psychological History: Depression Smoking Status: Unknown if ever smoked Past Alcohol Use History: None Reported Past Drug Use History: None Reported - Past Family History Father Family Medical History: AFIB, Congestive Heart Failure (CHF) Mother Family Medical History: Cancer Additional Family Medical History / Comment(s): breast cancer with mets Medications and Allergies Home Medications Medication Instructions Recorded Confirmed Type ALPRAZolam [Xanax] 1 mg PO DAILY@0800,2200 01/21/21 03/14/21 History Amitriptyline HCl [Elavil] 20 mg PO HS 01/21/21 03/14/21 History Cholecalciferol [Vitamin D3 (25 50 mcg PO DAILY@0800 01/21/21 03/14/21 History Mcg = 1000 Iu)] Rosuvastatin [Crestor] 20 mg PO HS@2200 01/21/21 03/14/21 History Sertraline [Zoloft] 100 mg PO DAILY@0800 01/21/21 03/14/21 History buPROPion [Wellbutrin] 75 mg PO DAILY@0800 01/21/21 03/14/21 History Acetaminophen Tab [Tylenol] 650 mg PO Q4HR PRN tab 01/30/21 03/14/21 Rx Clopidogrel [Plavix] 75 mg PO DAILY tab 01/30/21 03/14/21 Rx Melatonin 5 mg PO HS tablet 01/30/21 03/14/21 Rx Pantoprazole [Protonix] 40 mg PO AC-BRKFST tablet. 01/30/21 03/14/21 Rx amLODIPine [Norvasc] 5 mg PO DAILY@1200 tab 01/30/21 03/14/21 Rx methIMAzole [Tapazole] 15 mg PO DAILY tab 01/30/21 03/14/21 Rx Aspirin 81 mg PO DAILY tab 03/08/21 03/14/21 Rx Furosemide [Lasix] 40 mg PO BID 30 Days #60 tablet 03/08/21 03/14/21 Rx Losartan [Cozaar] 25 mg PO DAILY 30 Days #30 tab 03/08/21 03/14/21 Rx Metoprolol Tartrate [Lopressor] 25 mg PO BID 30 Days #60 tab 03/08/21 03/14/21 Rx Allergies Allergy/AdvReac Type Severity Reaction Status Date / Time No Known Allergies Allergy Verified 03/14/21 23:16 Physical Exam Vitals: Vital Signs Temp Pulse Resp BP Pulse Ox 03/15/21 00:43 135 H 16 92 L 09/23/21 23:44 135 H 18 109/73 93 L 03/14/21 22:27 97.5 F L 132 H 20 91/56 93 L Intake and Output 03/14/21 03/14/21 03/15/21 14:59 22:59 06:59 Other: Weight 63.957 kg Constitutional: No acute distress, conversant, pleasant Eyes: Anicteric sclerae, moist conjunctiva, Pupils equal round reactive to light ENMT: NC/AT Oropharynx clear, no erythema, or exudates Neck: Supple, no masses, or JVD No carotid bruits No thyromegaly Lungs: decrease breath sounds at lung basis Clear to percussion Normal respiratory effort, no accessory muscle use Cardiovascular: Heart tachycardia No murmurs, gallops, or rubs No peripheral edema Abdominal: Soft Nontender, no guarding, rebound or rigidity Abdomen moving with respiration Normoactive bowel sounds No hepatomegaly, No splenomegaly No palpable mass No abdominal wall hernia noted Skin: Normal temperature, tone, texture, turgor No induration No subcutaneous nodules No rash, lesions No ulcers Extremities: No digital cyanosis No clubbing Pedal pulses intact and symmetrical Radial pulses intact and symmetrical No calf tenderness Psychiatric: Alert and oriented to person, place Appropriate affect fair judgement Neuro Muscles Strength 4/5 in all 4 extremities Sensation to light touch grossly present throughout Cranial nerves II-XII grossly intact No focal sensory deficits Lymphatics: no palpable cervical or supraclavicular , or inguinal lymph nodes Results CBC & Chem 7: 03/14/21 23:08 03/14/21 23:08 Labs: Abnormal Lab Results - Last 24 Hours (Table) 03/14/21 03/14/21 03/14/21 Range/Units 23:08 23:08 23:08 MCV 77.5 L D (80.0-100.0) fL Eosinophils # 0.9 H (0-0.7) k/uL Sodium 133 L (137-145) mmol/L Carbon Dioxide 20 L (22-30) mmol/L BUN 36 H (7-17) mg/dL Creatinine 1.53 H (0.52-1.04) mg/dL Glucose 124 H (74-99) mg/dL Troponin I 0.044 H* (0.000-0.034) ng/mL Assessment and Plan Assessment: atypical chest pain with elevated troponin , rule out ACS with recent CAD s/p CABG Sinus tachycardia ischemic cardiomyopathy LVEF 30%, euvolemic at this time , stable pulmonary congestion KAYLYNN plan trend trops, trending up cardio consult heparin drip ASA , plavix , statin buncher hand attempting small gentle bolus to see if it helps with tachycardia cant do BB at this time due to marginal blood pressure patient currently asymptomatic recent stress test about 1 week ago , no reversible ischemia resume cardiac meds , hold if hypotensive hold diuretics due to hypotension , CXR shows stable mild pulmonary congestion compared to old exam supplemental oxygen as needed monitor renal function monitor urine output chronic conditions CAD s/p CABG hypertension no Code anticipated length of stay < 2 midnights
[2021-03-15 05:39] LABS: Partial Thromboplastin Time 23.9 sec (22.0-30.0); Prothrombin Time 10.5 sec (9.0-12.0)
[2021-03-15] MEDS: PANTOPRAZOLE 40 MG TABLET PO SCH (06:54)
[2021-03-15] MEDS: ASPIRIN 81 MG PO SCH (07:43)
[2021-03-15] MEDS: ALPRAZolam 1 MG TAB PO SCH ×2 (07:43→20:55)
[2021-03-15] MEDS: METOPROLOL TARTRATE 25 MG TAB PO SCH ×2 (07:44→20:55)
[2021-03-15] MEDS: SERTRALINE 100 MG TAB PO SCH (07:44)
[2021-03-15] MEDS: methIMAzole 5 MG TAB PO SCH (07:44)
[2021-03-15] MEDS: CLOPIDOGREL 75 MG TAB PO SCH (07:44)
[2021-03-15] MEDS: buPROPion 75 MG TAB PO SCH (07:44)
[2021-03-15] MEDS: CHOLECALCIFEROL 25 MCG (1000 IU) TABLET PO SCH (07:44)
[2021-03-15] MEDS ORDERED: LOSARTAN 25 MG TAB PO SCH (09:00)
[2021-03-15] MEDS: HEPARIN SOD,PORK IN 0.45% NACL 25,000 UNIT in 0.45% NACL 1 250ML.BAG IV SCH (10:40)
[2021-03-15] MEDS ORDERED: DEXTROSE 5% IN WATER 100 ML with AMIODARONE 150 MG IV ONE (11:03)
[2021-03-15] MEDS ORDERED: AMIODARONE 360 MG in DEXTROSE 5% IN WATER 200 ML IV ONE ×2 (11:03)
[2021-03-15] MEDS ORDERED: amLODIPine 5 MG TAB PO SCH (12:00)
--- NOTE | 2021-03-15 12:37 | P.PN ---
Progress Note - Text Progress Note Date: 03/15/21 Pt seen and examined independently at bedside. I agree with the documented assessment and plan by my colleague earlier this morning. Pt had troponin elevation after episode of chest pain in setting of recent CABG. Cardiology to determine whether LHC is indicated to identify any salvageable tissue or not. Pending recs.
--- NOTE | 2021-03-15 12:53 | P.CRDCN ---
History of Present Illness History of present illness: HISTORY OF PRESENTING ILLNESS This is a pleasant 75-year-old female past medical history significant for coronary artery disease s/p bypass grafting, NSTEMI, cardiomyopathy, hypert ension, dyslipidemia and breast cancer s/p mastectomy. She follows in the office with Dr. Hess. We have been asked to see in consultation for chest pain. She states last night after eating she started feeling a burning sensation in the epigastric region. It was associated with palpitations and shortness of breath. She took TUMS and it helped but not entirely with the pain. Since waking up this morning her chest pain has resolved. She also states she has still been coughing and having to sleep sitting up in a recliner since discharge. She was discharged 03/09/2021 after being admitted for new onset systolic heart failure. Echocardiogram reveals impaired LV systolic function with ejection fraction 30- 35%, apical anterior, apical lateral, apical inferior, apical septal and apical hypokinesia noted. At that time she underwent a nuclear stress test that revealed impaired LV systolic function but no reversible ischemia. EKG on arrival reveals left bundle branch block. Heart rate has been in the 130-150 range. Difficult to tell if there is underlying atrial flutter versus atrial tachycardia. Chest x-ray reveals mild heart failure with mild to moderate pleural effusions. Laboratory data reviewed, WBC 10, hemoglobin 12, platelets 392, sodium 133, potassium 4, creatinine 1.53, magnesium 2.2, troponin 0.0 44, 0.0 56, 0.0 92 and NT proBNP 3530. Current daily cardiac medications include aspirin 81 mg daily, Plavix 75 mg daily, Lasix 40 mg twice a day, losartan 25 mg daily, Lopressor 25 mg twice a day, rosuvastatin 20 mg daily and amlodipine 5 mg daily. REVIEW OF SYSTEMS At the time of my exam: CONSTITUTIONAL: Denies fever or chills. CARDIOVASCULAR: Complains of palpitations, orthopnea and shortness of breath. Denies chest pain. RESPIRATORY: Complains of cough. GASTROINTESTINAL: Denies abdominal pain, diarrhea, constipation, nausea or vomiting. MUSCULOSKELETAL: Denies myalgias. NEUROLOGIC: Denies numbness, tingling, headache or weakness. ENDOCRINE: Denies fatigue, weight change, polydipsia or polyurina. GENITOURINARY: Denies burning, hematuria or urgency with micturation. HEMATOLOGIC: Denies history of anemia or bleeding. PHYSICAL EXAMINATION Blood pressure 99/69 heart rate 134 afebrile and maintaining oxygen saturation on nasal cannula. CONSTITUTIONAL: No apparent distress. HEENT: Head is normocephalic. Pupils are equal, round. Sclerae anicteric. Mucous membranes of the mouth are moist. No JVD. No carotid bruit. CHEST EXAMINATION: Lungs are clear to auscultation. No chest wall tenderness is noted on palpation or with deep breathing. HEART EXAMINATION: Regular rate and rhythm. S1, S2 heard. No murmurs, gallops or rub. ABDOMEN: Soft, nontender. EXTREMITIES: 2+ peripheral pulses, no lower extremity edema and no calf tenderness. NEUROLOGIC EXAMINATION: Patient is awake, alert and oriented x3. ASSESSMENT Tachycardia, difficult to discern if it is atrial tachycardia versus atrial flutter Chest pain Coronary artery disease status post bypass grafting Ischemic cardiomyopathy Chronic systolic heart failure Hypertension Dyslipidemia Thrombocytopenia PLAN Initiate amiodarone bolus and infusion in an attempt to slow her rate down and determine what rhythm she is in. Obtain EKG if her rate slows down to assess underlying rhythm. If amiodarone does not convert her or slow her down we will consider cardioversion in the morning. Continue heparin infusion. Discontinue amlodipine secondary to hypotension. Further recommendations to follow based upon clinical course. Thank you kindly for this consultation. Nurse Practitioner note has been reviewed, I agree with a documented findings and plan of care. Patient was seen and examined. Past Medical History Past Medical History: Coronary Artery Disease (CAD), Cancer, Hyperlipidemia, Hypertension, Memory Impairment, Myocardial Infarction ([place]), Osteoarthritis (OA) Additional Past Medical History / Comment(s): 01/25/21 CABG X3 Last Myocardial Infarction Date:: 01/21/21 History of Any Multi-Drug Resistant Organisms: None Reported Past Surgical History: Appendectomy, Bladder Surgery, Bowel Resection, Breast Surgery, Cholecystectomy, Coronary Bypass/CABG, Hysterectomy, Orthopedic Surgery, Tubal Ligation Additional Past Surgical History / Comment(s): cataractsurgery x2 with lens implants, masectomy on right breast, bowel resection with colostomy and reversal, bladder suspension, left knee replacement, skin cancer removed from right ear Past Anesthesia/Blood Transfusion Reactions: No Reported Reaction Past Psychological History: Depression Smoking Status: Unknown if ever smoked Past Alcohol Use History: None Reported Past Drug Use History: None Reported - Past Family History Father Family Medical History: AFIB, Congestive Heart Failure (CHF) Mother Family Medical History: Cancer Additional Family Medical History / Comment(s): breast cancer with mets Medications and Allergies Home Medications Medication Instructions Recorded Confirmed Type ALPRAZolam [Xanax] 1 mg PO DAILY@0800,2200 01/21/21 03/14/21 History Amitriptyline HCl [Elavil] 20 mg PO HS 01/21/21 03/14/21 History Cholecalciferol [Vitamin D3 (25 50 mcg PO DAILY@0800 01/21/21 03/14/21 History Mcg = 1000 Iu)] Rosuvastatin [Crestor] 20 mg PO HS@2200 01/21/21 03/14/21 History Sertraline [Zoloft] 100 mg PO DAILY@0800 01/21/21 03/14/21 History buPROPion [Wellbutrin] 75 mg PO DAILY@0800 01/21/21 03/14/21 History Acetaminophen Tab [Tylenol] 650 mg PO Q4HR PRN tab 01/30/21 03/14/21 Rx Clopidogrel [Plavix] 75 mg PO DAILY tab 01/30/21 03/14/21 Rx Melatonin 5 mg PO HS tablet 01/30/21 03/14/21 Rx Pantoprazole [Protonix] 40 mg PO AC-BRKFST tablet. 01/30/21 03/14/21 Rx amLODIPine [Norvasc] 5 mg PO DAILY@1200 tab 01/30/21 03/14/21 Rx methIMAzole [Tapazole] 15 mg PO DAILY tab 01/30/21 03/14/21 Rx Aspirin 81 mg PO DAILY tab 03/08/21 03/14/21 Rx Furosemide [Lasix] 40 mg PO BID 30 Days #60 tablet 03/08/21 03/14/21 Rx Losartan [Cozaar] 25 mg PO DAILY 30 Days #30 tab 03/08/21 03/14/21 Rx Metoprolol Tartrate [Lopressor] 25 mg PO BID 30 Days #60 tab 03/08/21 03/14/21 Rx Allergies Allergy/AdvReac Type Severity Reaction Status Date / Time No Known Allergies Allergy Verified 03/14/21 23:16 Physical Exam Vitals: Vital Signs Temp Pulse Pulse Resp BP BP Pulse Ox 03/15/21 07:40 97.7 F 134 H 18 99/69 99 03/15/21 07:13 114/62 03/15/21 04:00 98.0 F 131 H 18 81/52 98 03/15/21 02:21 96 03/15/21 02:00 134 H 20 99/64 90 L 03/15/21 00:43 135 H 16 92 L 03/14/21 23:44 135 H 18 109/73 93 L 03/14/21 22:27 97.5 F L 132 H 20 91/56 93 L Intake and Output 03/14/21 03/15/21 03/15/21 22:59 06:59 14:59 Other: Weight 63.957 kg 64.3 kg Results 03/14/21 23:08 03/14/21 23:08 Cardiac Enzymes 03/14/21 03/14/21 03/15/21 Range/Units 23:08 23:08 02:17 AST 34 (14-36) U/L Troponin I 0.044 H* 0.056 H* (0.000-0.034) ng/mL 03/15/21 Range/Units 05:07 AST (14-36) U/L Troponin I 0.092 H* (0.000-0.034) ng/mL Coagulation 03/14/21 03/15/21 Range/Units 23:08 05:07 PT 10.6 10.5 (9.0-12.0) sec APTT 22.3 23.9 (22.0-30.0) sec CBC 03/14/21 Range/Units 23:08 WBC 10.0 (3.8-10.6) k/uL RBC 4.73 (3.80-5.40) m/uL Hgb 12.1 (11.4-16.0) gm/dL Hct 36.7 (34.0-46.0) % Plt Count 392 (150-450) k/uL Comprehensive Metabolic Panel 03/14/21 Range/Units 23:08 Sodium 133 L (137-145) mmol/L Potassium 4.0 (3.5-5.1) mmol/L Chloride 98 (98-107) mmol/L Carbon Dioxide 20 L (22-30) mmol/L BUN 36 H (7-17) mg/dL Creatinine 1.53 H (0.52-1.04) mg/dL Glucose 124 H (74-99) mg/dL Calcium 9.7 (8.4-10.2) mg/dL AST 34 (14-36) U/L ALT 24 (4-34) U/L Alkaline Phosphatase 121 (38-126) U/L Total Protein 6.9 (6.3-8.2) g/dL Albumin 4.1 (3.5-5.0) g/dL Current Medications Generic Name Dose Route Start Last Admin Trade Name Freq PRN Reason Stop Dose Admin Acetaminophen 650 mg 03/15/21 01:32 Acetaminophen Tab 325 Mg Tab PO Q4HR PRN Fever and/ or Pain Alprazolam 1 mg 03/15/21 08:00 03/15/21 07:43 Alprazolam 1 Mg Tab PO 1 mg DAILY@0800,2200 JAZ Administration Amitriptyline HCl 20 mg 03/15/21 21:00 Amitriptyline Hcl 10 Mg Tab PO HS JAZ Aspirin 81 mg 03/15/21 09:00 03/15/21 07:43 Aspirin 81 Mg PO 81 mg DAILY JAZ Administration Atorvastatin Calcium 40 mg 03/15/21 21:00 Atorvastatin 40 Mg Tab PO HS JAZ Bupropion HCl 75 mg 03/15/21 09:00 03/15/21 07:44 Bupropion 75 Mg Tab PO 75 mg DAILY JAZ Administration Cholecalciferol 50 mcg 03/15/21 09:00 03/15/21 07:44 Cholecalciferol 25 Mcg (1000 Iu) Tablet PO 50 mcg DAILY JAZ Administration Clopidogrel Bisulfate 75 mg 03/15/21 09:00 03/15/21 07:44 Clopidogrel 75 Mg Tab PO 75 mg DAILY JAZ Administration Heparin Sodium (Porcine) 0 unit 03/15/21 04:47 Heparin Sodium 1,000 Un/Ml (10ml Vl) IV PER PROTOCOL PRN Low PTT Protocol Sodium Chloride 1,000 mls @ 20 mls/hr 03/15/21 01:30 03/15/21 04:42 Saline 0.9% IV Not Given .Q24H [facility] Heparin Sodium/Sodium Chloride 250 mls @ 7.675 mls/hr 03/15/21 05:00 25,000 unit/ Sodium Chloride IV .Q24H [facility] Protocol 12 UNITS/KG/HR Melatonin 5 mg 03/15/21 21:00 Melatonin 5 Mg Tablet PO HS JAZ Methimazole 15 mg 03/15/21 09:00 03/15/21 07:44 Methimazole 5 Mg Tab PO 15 mg DAILY JAZ Administration Metoprolol Tartrate 25 mg 03/15/21 09:00 03/15/21 07:44 Metoprolol Tartrate 25 Mg Tab PO 25 mg BID JAZ Administration Morphine Sulfate 4 mg 03/15/21 01:25 Morphine Sulfate 4 Mg/Ml Syringe IV Q5M PRN Chest Pain Nitroglycerin 0.4 mg 03/15/21 01:25 Nitroglycerin Sl Tabs 0.4 Mg Tab SUBLINGUAL Q5M PRN Chest Pain Pantoprazole Sodium 40 mg 03/15/21 07:30 03/15/21 06:54 Pantoprazole 40 Mg Tablet PO 40 mg AC-BRKFST JAZ Administration Sertraline HCl 100 mg 03/15/21 09:00 03/15/21 07:44 Sertraline 100 Mg Tab PO 100 mg DAILY JAZ Administration Intake and Output 03/14/21 03/15/21 03/15/21 22:59 06:59 14:59 Other: Weight 63.957 kg 64.3 kg 03/14/21 23:08 03/14/21 23:08
[2021-03-15] MEDS: AMIODARONE 450 MG in DEXTROSE 5% IN WATER 250 ML IV SCH ×2 (18:09)
[2021-03-15] MEDS ORDERED: ONDANSETRON 4 MG in SODIUM CHLORIDE 0.9% 50 ML IVPB PRN (18:16)
[2021-03-15] MEDS ORDERED: ONDANSETRON 4 MG/2 ML VIAL IVP PRN (18:22)
[2021-03-15] MEDS: MELATONIN 5 MG TABLET PO SCH (20:55)
[2021-03-15] MEDS: ATORVASTATIN 40 MG TAB PO SCH (20:55)
[2021-03-15] MEDS: AMITRIPTYLINE HCL 10 MG TAB PO SCH (21:20)
[2021-03-16] MEDS: PANTOPRAZOLE 40 MG TABLET PO SCH (06:43)
[2021-03-16] MEDS: CHOLECALCIFEROL 25 MCG (1000 IU) TABLET PO SCH (07:54)
[2021-03-16] MEDS: methIMAzole 5 MG TAB PO SCH (07:54)
[2021-03-16] MEDS: CLOPIDOGREL 75 MG TAB PO SCH (07:54)
[2021-03-16] MEDS: METOPROLOL TARTRATE 25 MG TAB PO SCH ×2 (07:55→19:53)
[2021-03-16] MEDS: ALPRAZolam 1 MG TAB PO SCH ×2 (07:55→19:53)
[2021-03-16] MEDS: SERTRALINE 100 MG TAB PO SCH (07:55)
[2021-03-16] MEDS: buPROPion 75 MG TAB PO SCH (07:55)
[2021-03-16] MEDS: SODIUM CHLORIDE 0.9% 1,000 ML IV SCH (07:55)
[2021-03-16] MEDS: ASPIRIN 81 MG PO SCH (07:55)
[2021-03-16] MEDS: AMIODARONE 450 MG in DEXTROSE 5% IN WATER 250 ML IV SCH ×2 (08:47)
[2021-03-16] MEDS: HEPARIN SOD,PORK IN 0.45% NACL 25,000 UNIT in 0.45% NACL 1 250ML.BAG IV SCH (08:48)
[2021-03-16] MEDS ORDERED: ASPIRIN 325 MG TAB PO SCH (09:00)
[2021-03-16 11:23] VITALS: RESP 16
--- NOTE | 2021-03-16 13:47 | P.PN ---
Subjective Progress Note Date: 03/16/21 No new complaints today. Doing well, no chest pain. Ongoing orthopnea. Objective - Vital Signs Vital signs: Vital Signs Temp 97.7 F 03/16/21 11:23 Pulse 52 L 03/16/21 11:23 Resp 16 03/16/21 11:23 BP 113/54 03/16/21 11:23 Pulse Ox 97 03/16/21 11:23 Intake & Output 03/15/21 03/16/21 03/16/21 18:59 06:59 18:59 Intake Total 442 654.023 Output Total 450 200 Balance -8 454.023 Weight 64 kg Intake: Intake, IV Titration 442 414.023 Amount Amiodarone 450 mg In 243.894 Dextrose 5% in Water 250 ml @ 0.5 MG/MIN 16.667 mls/hr IV .Q15H [facility] Rx#: [id number] Dextrose 5% in Water 100 100 ml @ 618 mls/hr IV .Q10M ONE with Amiodarone 150 mg Rx#:[id number] Heparin Sod,Pork in 0.45% 42 170.129 NaCl 25,000 unit In 0.45 % NaCl 1 250ml.bag @ 12 UNITS/KG/HR 7.675 mls/hr IV .Q24H [facility] Rx#: [id number] Sodium Chloride 0.9% 1, 300 000 ml @ 20 mls/hr IV . Q24H [facility] Rx#:[id number] Oral 240 Output: Urine 450 200 Other: # Voids 1 - Exam Gen: awake, alert HEENT: normocephalic, atraumatic, good hearing acuity, moist mucous membranes Resp: good air exchange, breathing comfortably with no accessory muscle use CVS: good distal perfusion x 4, GI: soft, NTTP, ND : no SPT, no CVAT, casey catheter not present MSK: no pitting edema, no clubbing Neuro: non-focal, moving all extremities Psych: cooperative, euthymic mood - Labs CBC & Chem 7: 03/14/21 23:08 03/14/21 23:08 Labs: Abnormal Lab Results - Last 24 Hours (Table) 03/15/21 03/16/21 Range/Units 18:25 07:49 APTT 52.1 H 39.6 H (22.0-30.0) sec Assessment and Plan Assessment: Atypical chest pain with elevated troponin , rule out ACS with recent CAD s/p CABG Sinus tachycardia ischemic cardiomyopathy LVEF 30%, euvolemic at this time , stable pulmonary congestion KAYLYNN plan cardio consult heparin drip can be d/c'd ASA , plavix , statin conveyor monitor s/p Amio bolus, now PO Amiodarone patient currently asymptomatic recent stress test about 1 week ago , no reversible ischemia resume cardiac meds , hold if hypotensive hold diuretics due to hypotension , CXR shows stable mild pulmonary congestion compared to old exam supplemental oxygen as needed monitor renal function monitor urine output chronic conditions CAD s/p CABG hypertension no Code anticipated length of stay < 2 midnights
--- NOTE | 2021-03-16 15:43 | P.PN ---
Subjective Progress Note Date: 03/16/21 HISTORY OF PRESENTING ILLNESS This is a pleasant 75-year-old female past medical history significant for coronary artery disease s/p bypass grafting, NSTEMI, cardiomyopathy, hypertension, dyslipidemia and breast cancer s/p mastectomy. She follows in the office with Dr. Hess. We have been asked to see in consultation for chest pain. She states last night after eating she started feeling a burning sensation in the epigastric region. It was associated with palpitations and shortness of breath. She took TUMS and it helped but not entirely with the pain. Since waking up this morning her chest pain has resolved. She also states she has still been coughing and having to sleep sitting up in a recliner since discharge. She was discharged 03/09/2021 after being admitted for new onset systolic heart failure. Echocardiogram reveals impaired LV systolic function with ejection fraction 30-35%, apical anterior, apical lateral, apical inferior, apical septal and apical hypokinesia noted. At that time she underwent a nuclear stress test that revealed impaired LV systolic function but no reve rsible ischemia. EKG on arrival reveals left bundle branch block. Heart rate has been in the 130-150 range. Difficult to tell if there is underlying atrial flutter versus atrial tachycardia. Chest x-ray reveals mild heart failure with mild to moderate pleural effusions. Laboratory data reviewed, WBC 10, hemoglobin 12, platelets 392, sodium 133, potassium 4, creatinine 1.53, magnesium 2.2, troponin 0.0 44, 0.0 56, 0.0 92 and NT proBNP 3530. Current daily cardiac medications include aspirin 81 mg daily, Plavix 75 mg daily, Lasix 40 mg twice a day, losartan 25 mg daily, Lopressor 25 mg twice a day, rosuvastatin 20 mg daily and amlodipine 5 mg daily. 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 Patient has been on amiodarone drip will be transitioned to oral amiodarone 600 mg daily with taper, prescription sent to her pharmacy. Blood pressure 126/58, pulse ox 90% on 2 L nasal cannula. REVIEW OF SYSTEMS At the time of my exam: CONSTITUTIONAL: Denies fever or chills. CARDIOVASCULAR: Complains of palpitations, orthopnea and shortness of breath. Denies chest pain. RESPIRATORY: Complains of cough. GASTROINTESTINAL: Denies abdominal pain, diarrhea, constipation, nausea or vomiting. MUSCULOSKELETAL: Denies myalgias. NEUROLOGIC: Denies numbness, tingling, headache or weakness. ENDOCRINE: Denies fatigue, weight change, polydipsia or polyurina. GENITOURINARY: Denies burning, hematuria or urgency with micturation. HEMATOLOGIC: Denies history of anemia or bleeding. PHYSICAL EXAMINATION CONSTITUTIONAL: No apparent distress. HEENT: Head is normocephalic. Pupils are equal, round. Sclerae anicteric. Mucous membranes of the mouth are moist. No JVD. No carotid bruit. CHEST EXAMINATION: Lungs are clear to auscultation. No chest wall tenderness is noted on palpation or with deep breathing. HEART EXAMINATION: Regular rate and rhythm. S1, S2 heard. No murmurs, gallops or rub. ABDOMEN: Soft, nontender. EXTREMITIES: 2+ peripheral pulses, no lower extremity edema and no calf tenderness. NEUROLOGIC EXAMINATION: Patient is awake, alert and oriented x3. ASSESSMENT Tachycardia, difficult to discern if it is atrial tachycardia versus atrial flutter Chest pain Coronary artery disease status post bypass grafting Ischemic cardiomyopathy Chronic systolic heart failure Hypertension Dyslipidemia Thrombocytopenia PLAN Transitioned IV amiodarone to oral 600 mg daily Continue heparin infusion. Discontinue amlodipine secondary to hypotension. Further recommendations to follow based upon clinical course. Thank you kindly for this consultation. Nurse Practitioner note has been reviewed, I agree with a documented findings and plan of care. Patient was seen and examined. Objective - Vital Signs Vital signs: Vital Signs Temp 97.7 F 03/16/21 11:23 Pulse 52 L 03/16/21 11:23 Resp 16 03/16/21 11:23 BP 113/54 03/16/21 11:23 Pulse Ox 97 03/16/21 11:23 Intake & Output 03/15/21 03/16/21 03/16/21 18:59 06:59 18:59 Intake Total 442 654.023 Output Total 450 200 Balance -8 454.023 Weight 64 kg Intake: Intake, IV Titration 442 414.023 Amount Amiodarone 450 mg In 243.894 Dextrose 5% in Water 250 ml @ 0.5 MG/MIN 16.667 mls/hr IV .Q15H [facility] Rx#: [id number] Dextrose 5% in Water 100 100 ml @ 618 mls/hr IV .Q10M ONE with Amiodarone 150 mg Rx#:[id number] Heparin Sod,Pork in 0.45% 42 170.129 NaCl 25,000 unit In 0.45 % NaCl 1 250ml.bag @ 12 UNITS/KG/HR 7.675 mls/hr IV .Q24H [facility] Rx#: [id number] Sodium Chloride 0.9% 1, 300 000 ml @ 20 mls/hr IV . Q24H [facility] Rx#:[id number] Oral 240 Output: Urine 450 200 Other: # Voids 1 - Labs CBC & Chem 7: 03/14/21 23:08 03/14/21 23:08 Labs: Abnormal Lab Results - Last 24 Hours (Table) 03/15/21 03/16/21 Range/Units 18:25 07:49 APTT 52.1 H 39.6 H (22.0-30.0) sec
[2021-03-16] MEDS: AMITRIPTYLINE HCL 10 MG TAB PO SCH (19:52)
[2021-03-16] MEDS: MELATONIN 5 MG TABLET PO SCH (19:53)
[2021-03-16] MEDS: ATORVASTATIN 40 MG TAB PO SCH (19:53)
[2021-03-16] MEDS ORDERED: AMIODARONE 200 MG TAB PO SCH (21:00)
[2021-03-17] MEDS: HEPARIN SOD,PORK IN 0.45% NACL 25,000 UNIT in 0.45% NACL 1 250ML.BAG IV SCH (06:24)
[2021-03-17] MEDS: PANTOPRAZOLE 40 MG TABLET PO SCH (06:25)
[2021-03-17] MEDS: SODIUM CHLORIDE 0.9% 1,000 ML IV SCH (08:38)
[2021-03-17] MEDS: METOPROLOL TARTRATE 25 MG TAB PO SCH (08:44)
[2021-03-17] MEDS: ALPRAZolam 1 MG TAB PO SCH (08:44)
[2021-03-17] MEDS: SERTRALINE 100 MG TAB PO SCH (08:45)
[2021-03-17] MEDS: ASPIRIN 81 MG PO SCH (08:45)
[2021-03-17] MEDS: CHOLECALCIFEROL 25 MCG (1000 IU) TABLET PO SCH (08:45)
[2021-03-17] MEDS: CLOPIDOGREL 75 MG TAB PO SCH (08:46)
[2021-03-17] MEDS: buPROPion 75 MG TAB PO SCH (08:46)
[2021-03-17] MEDS: methIMAzole 5 MG TAB PO SCH (08:47)
[2021-03-17 08:56] VITALS: BP 117/57; PULSE 72; TEMP 98.2
[2021-03-17] MEDS ORDERED: AMIODARONE 200 MG TAB PO SCH (09:00)
[2021-03-17] MEDS ORDERED: FUROSEMIDE 40 MG TAB PO SCH (09:00)
[2021-03-17] MEDS ORDERED: APIXABAN 2.5 MG TABLET PO SCH (11:15)
--- NOTE | 2021-03-17 12:13 | P.DS ---
Providers Date of admission: 03/15/21 01:36 Expected date of discharge: 03/17/21 Attending physician: Tasha Lieberman MD Consults: 03/15/21 01:25 Consult Physician Routine Consulting Provider: Brian Hess Consult Reason/Comments: chest pain Do you want consulting provider notified?: Yes Primary care physician: [facility] Course: Atypical chest pain Sinus tachycardia Elevated Troponin Ischemic cardiomyopathy LVEF 30% CAD s/p CABG Hypertension Patient admitted with telemetry and cardiology consultation. Heparin gtt started for ACS protocol and home ASA, Plavix, and statin were continued. For patient's tachycardia, cardiology started patient on amiodarone, which improved her rates to 60s, sinus rhythm. Pt still appeared to be congested on CXR, however, given borderline kidney function, she was given gentle IVF and lasix was held. On discharge, lasix dose was halved from 40mg BID to 40mg daily. Pt returned to baseline condition, and cleared for discharge home on new med of amio and changed dosing of lasix. Pt will f/u with PCP. Needs outpatient f/u BMP. I spent 36 minutes coordinating this complex discharge. Assessment: Gen: awake, alert HEENT: normocephalic, atraumatic, good hearing acuity, moist mucous membranes Resp: good air exchange, breathing comfortably with no accessory muscle use CVS: good distal perfusion x 4, GI: soft, NTTP, ND : no SPT, no CVAT, casey catheter not present MSK: no pitting edema, no clubbing Neuro: non-focal, moving all extremities Psych: cooperative, euthymic mood Patient Condition at Discharge: Good Plan - Discharge Summary New Discharge Prescriptions: New Amiodarone [Cordarone] 600 mg PO DAILY #51 tab Apixaban [Eliquis] 2.5 mg PO BID #60 tab Continue Rosuvastatin [Crestor] 20 mg PO HS@2200 buPROPion [Wellbutrin] 75 mg PO DAILY@0800 Amitriptyline HCl [Elavil] 20 mg PO HS Cholecalciferol [Vitamin D3 (25 Mcg = 1000 Iu)] 50 mcg PO DAILY@0800 Melatonin 5 mg PO HS tablet amLODIPine [Norvasc] 5 mg PO DAILY@1200 tab Clopidogrel [Plavix] 75 mg PO DAILY tab Pantoprazole [Protonix] 40 mg PO AC-BRKFST tablet. methIMAzole [Tapazole] 15 mg PO DAILY tab Acetaminophen Tab [Tylenol] 650 mg PO Q4HR PRN tab PRN Reason: Fever And/ Or Pain Losartan [Cozaar] 25 mg PO DAILY 30 Days #30 tab Sertraline [Zoloft] 100 mg PO DAILY@0800 ALPRAZolam [Xanax] 1 mg PO DAILY@0800,2200 Aspirin 81 mg PO DAILY tab Changed Furosemide [Lasix] 40 mg PO DAILY 30 Days #60 tablet Discontinued Metoprolol Tartrate [Lopressor] 25 mg PO BID 30 Days #60 tab Discharge Medication List ALPRAZolam [Xanax] 1 mg PO DAILY@0800,2200 01/21/21 [History] Amitriptyline HCl [Elavil] 20 mg PO HS 01/21/21 [History] Cholecalciferol [Vitamin D3 (25 Mcg = 1000 Iu)] 50 mcg PO DAILY@0800 01/21/21 [History] Rosuvastatin [Crestor] 20 mg PO HS@219901/21/21 [History] Sertraline [Zoloft] 100 mg PO DAILY@0800 01/21/21 [History] buPROPion [Wellbutrin] 75 mg PO DAILY@0800 01/21/21 [History] Acetaminophen Tab [Tylenol] 650 mg PO Q4HR PRN tab 01/30/21 [Rx] Clopidogrel [Plavix] 75 mg PO DAILY tab 01/30/21 [Rx] Melatonin 5 mg PO HS tablet 01/30/21 [Rx] Pantoprazole [Protonix] 40 mg PO AC-BRKFST tablet. 01/30/21 [Rx] amLODIPine [Norvasc] 5 mg PO DAILY@1200 tab 01/30/21 [Rx] methIMAzole [Tapazole] 15 mg PO DAILY tab 01/30/21 [Rx] Aspirin 81 mg PO DAILY tab 03/08/21 [Rx] Losartan [Cozaar] 25 mg PO DAILY 30 Days #30 tab 03/08/21 [Rx] Amiodarone [Cordarone] 600 mg PO DAILY #51 tab 03/16/21 [Rx] Apixaban [Eliquis] 2.5 mg PO BID #60 tab 03/17/21 [Rx] Furosemide [Lasix] 40 mg PO DAILY 30 Days #60 tablet 03/17/21 [Rx] Follow up Appointment(s)/Referral(s): [facility], [NON-STAFF] - Brian Foster DO [Primary Care Provider] - 1 Week (please call office when open to make follow up appointment) Merissa Solano MD [STAFF PHYSICIAN] - 1 Week (please call office when open to make follow up appointment) Patient Instructions/Handouts: Chest Pain (DC) Discharge Disposition: HOME SELF-CARE
--- NOTE | 2021-03-17 14:00 | P.PN ---
Subjective Progress Note Date: 03/17/21 HISTORY OF PRESENTING ILLNESS This is a pleasant 75-year-old female past medical history significant for coronary artery disease s/p bypass grafting, NSTEMI, cardiomyopathy, hypertension, dyslipidemia and breast cancer s/p mastectomy. She follows in the office with Dr. Hess. We have been asked to see in consultation for chest pain. She states last night after eating she started feeling a burning sensation in the epigastric region. It was associated with palpitations and shortness of breath. She took TUMS and it helped but not entirely with the pain. Since waking up this morning her chest pain has resolved. She also states she has still been coughing and having to sleep sitting up in a recliner since discharge. She was discharged 03/09/2021 after being admitted for new onset systolic heart failure. Echocardiogram reveals impaired LV systolic function with ejection fraction 30-35%, apical anterior, apical lateral, apical inferior, apical septal and apical hypokinesia noted. At that time she underwent a nuclear stress test that revealed impaired LV systolic function but no reve rsible ischemia. EKG on arrival reveals left bundle branch block. Heart rate has been in the 130-150 range. Difficult to tell if there is underlying atrial flutter versus atrial tachycardia. Chest x-ray reveals mild heart failure with mild to moderate pleural effusions. Laboratory data reviewed, WBC 10, hemoglobin 12, platelets 392, sodium 133, potassium 4, creatinine 1.53, magnesium 2.2, troponin 0.0 44, 0.0 56, 0.0 92 and NT proBNP 3530. Current daily cardiac medications include aspirin 81 mg daily, Plavix 75 mg daily, Lasix 40 mg twice a day, losartan 25 mg daily, Lopressor 25 mg twice a day, rosuvastatin 20 mg daily and amlodipine 5 mg daily. 03/16/2021 athletic monitor is a sinus rhythm. Patient has been on amiodarone drip will be transitioned to oral amiodarone 600 mg daily with taper, prescription sent to her pharmacy. Blood pressure 126/58, pulse ox 90% on 2 L nasal cannula. 03/17/2021 athletic monitor has been in the 60s and 70s sinus rhythm. Patient states she is feeling better today. No chest pain, no shortness of breath. Blood pressure 117/57 pulse ox 96% on room air. PHYSICAL EXAMINATION CONSTITUTIONAL: No apparent distress. HEENT: Head is normocephalic. Pupils are equal, round. Sclerae anicteric. Mucous membranes of the mouth are moist. No JVD. No carotid bruit. CHEST EXAMINATION: Lungs are clear to auscultation. No chest wall tenderness is noted on palpation or with deep breathing. HEART EXAMINATION: Regular rate and rhythm. S1, S2 heard. No murmurs, gallops or rub. ABDOMEN: Soft, nontender. EXTREMITIES: 2+ peripheral pulses, no lower extremity edema and no calf tenderness. NEUROLOGIC EXAMINATION: Patient is awake, alert and oriented x3. ASSESSMENT Tachycardia, difficult to discern if it is atrial tachycardia versus atrial flutter Chest pain Coronary artery disease status post bypass grafting Ischemic cardiomyopathy Chronic systolic heart failure Hypertension Dyslipidemia Thrombocytopenia PLAN Continue amiodarone at 600 mg daily on tapering dose, start eliquis 2.5 mg twice daily Discontinue heparin drip Patient is cleared for discharge from cardiology, plan for follow-up in the office Nurse Practitioner note has been reviewed, I agree with a documented findings and plan of care. Patient was seen and examined. Objective - Vital Signs Vital signs: Vital Signs Temp 98.2 F 03/17/21 08:50 Pulse 72 03/17/21 08:50 Resp 16 03/17/21 08:50 BP 117/57 03/17/21 08:50 Pulse Ox 96 03/17/21 08:50 Intake & Output 03/16/21 03/17/21 03/17/21 18:59 06:59 18:59 Intake Total 772.023 480 Output Total 200 600 600 Balance 572.023 -600 -120 Weight 64.3 kg Intake: Intake, IV Titration 414.023 Amount Amiodarone 450 mg In 243.894 Dextrose 5% in Water 250 ml @ 0.5 MG/MIN 16.667 mls/hr IV .Q15H JAZ Rx#: [id number] Heparin Sod,Pork in 0.45% 170.129 NaCl 25,000 unit In 0.45 % NaCl 1 250ml.bag @ 12 UNITS/KG/HR 7.675 mls/hr IV .Q24H JAZ Rx#: [id number] Oral 358 480 Output: Urine 200 600 600 Other: # Voids 1 1 - Labs CBC & Chem 7: 03/14/21 23:08 03/14/21 23:08
--- NOTE | 2021-03-19 13:47 | CDI ---
Documentation Clarification Form Date: 03/19/2021 01:31:49 PM From: Preston Azevedo Admit Date: 03/15/2021 01:36:00 AM Patient Name: Jenny Larkin Visit Number: [id number] Discharge Date: 03/17/2021 04:55:00 PM ATTENTION: The Clinical Documentation Specialists (CDI) and [facility] Coding Staff appreciate your assistance in clarifying documentation. Please respond to the clarification below the line at the bottom and electronically sign. The CDI & [facility] Coding staff will review the response and follow-up if needed. Please note: Queries are made part of the Legal Health Record. If you have any questions, please contact the author of this message via ITS. Dr. Tasha Lieberman History of NSTEMI is documented in H+P. Admitted with chest pain and elvevated troponin. Need to determine if there is a diagnosis associated with this. CXR shows mild CHF. History/Risk Factors: Hx of NSTEMI, CAD Clinical Indicators: Troponin: 10.044, 10.092 CXR results: mild CHF-no change Treatment: Please if there is a diagnosis associated with the above findings: [ ] No associated diagnosis. Elevated troponin and chest pain only. [ ] NSTEMI (type 1) [ ] Type II IN due to (please specify etiology) [ ] Unable to determine [ ] Other Condition, please specify [ ] acute coronary syndrome without a myocardial infarction I did initial admission , its atypical chest pain rule out ACS however, please reach out to the rounding provider who took care of the patient until discharge for final diagnosis from my chart review , it might have been determined to be related to his underlying tachycardia MTDD
== END 2021-03-17 16:55 | disposition home or self-care (01) | DRG 313 ==
LOC: EC 22:25 → 3SCARD 03-15 01:27 → OBSVTOIN 03-15 01:36 → 3SCARD 03-15 03:07
PROVIDERS: ADMIT Internal Medicine; ATTEND Internal Medicine
PROC: 05HF33Z Insertion of Infusion Device into Left Cephalic Vein, Percutaneous Approach (ICD-10-PCS; principal; 2021-03-15 08:25)
DX: R07.89 Other chest pain (principal); I50.22 Chronic systolic (congestive) heart failure; N17.9 Acute kidney failure, unspecified; E78.5 Hyperlipidemia, unspecified; D69.6 Thrombocytopenia, unspecified; F32.9 Major depressive disorder, single episode, unspecified; I25.10 Atherosclerotic heart disease of native coronary artery without angina pectoris; I25.5 Ischemic cardiomyopathy; I11.0 Hypertensive heart disease with heart failure; I44.7 Left bundle-branch block, unspecified; I25.2 Old myocardial infarction; Z79.02 Long term (current) use of antithrombotics/antiplatelets; Z79.82 Long term (current) use of aspirin; Z79.899 Other long term (current) drug therapy; Z82.49 Family history of ischemic heart disease and other diseases of the circulatory system; Z85.3 Personal history of malignant neoplasm of breast; Z90.10 Acquired absence of unspecified breast and nipple; Z20.822 Contact with and (suspected) exposure to COVID-19; Z95.1 Presence of aortocoronary bypass graft; Z90.710 Acquired absence of both cervix and uterus; Z96.1 Presence of intraocular lens; Z96.652 Presence of left artificial knee joint; Z85.828 Personal history of other malignant neoplasm of skin; R00.0 Tachycardia, unspecified; I95.2 Hypotension due to drugs; T46.1X5A Adverse effect of calcium-channel blockers, initial encounter; R77.8 Other specified abnormalities of plasma proteins
CPT/HCPCS: 36410; 36415; 71046; 76937; 80053; 83735; 83880; 84484; 85025; 85610; 85730; 87635; 93005; 94760

== ENCOUNTER 2021-03-18 22:16 | Inpatient (IN) | payer MEDICARE ==
[2021-03-18] MEDS ORDERED: SODIUM CHLORIDE 0.9% 500 ML 500 ML IV STA (22:55)
[2021-03-18] MEDS ORDERED: SODIUM CHLORIDE 0.9% 1,000 ML IV STA (22:55)
--- NOTE | 2021-03-18 22:55 | ED ---
Weakness HPI - General Chief complaint: Recheck/Abnormal Lab/Rx Stated complaint: recheck Time Seen by Provider: 03/18/21 22:43 Source: patient Mode of arrival: ambulatory Limitations: no limitations - Related Data Home Medications Medication Instructions Recorded Confirmed Amitriptyline HCl [Elavil] 20 mg PO HS 01/21/21 03/14/21 Cholecalciferol [Vitamin D3 (25 50 mcg PO DAILY@0800 01/21/21 03/14/21 Mcg = 1000 Iu)] Rosuvastatin [Crestor] 20 mg PO HS@2200 01/21/21 03/14/21 buPROPion [Wellbutrin] 75 mg PO DAILY@0800 01/21/21 03/14/21 Previous Rx's Medication Instructions Recorded Acetaminophen Tab [Tylenol] 650 mg PO Q4HR PRN tab 01/30/21 Clopidogrel [Plavix] 75 mg PO DAILY tab 01/30/21 Melatonin 5 mg PO HS tablet 01/30/21 Pantoprazole [Protonix] 40 mg PO AC-BRKFST tablet. 01/30/21 amLODIPine [Norvasc] 5 mg PO DAILY@1200 tab 01/30/21 methIMAzole [Tapazole] 15 mg PO DAILY tab 01/30/21 Aspirin 81 mg PO DAILY tab 03/08/21 Losartan [Cozaar] 25 mg PO DAILY 30 Days #30 tab 03/08/21 Amiodarone [Cordarone] 600 mg PO DAILY #51 tab 03/16/21 ALPRAZolam [Xanax] 1 mg PO DAILY@0800,2200 #30 tab 03/17/21 Apixaban [Eliquis] 2.5 mg PO BID #60 tab 03/17/21 Furosemide [Lasix] 40 mg PO DAILY 30 Days #60 tablet 03/17/21 Sertraline [Zoloft] 100 mg PO DAILY@0800 #30 tab 03/17/21 Allergies Allergy/AdvReac Type Severity Reaction Status Date / Time No Known Allergies Allergy Verified 03/18/21 22:30 Review of Systems ROS Statement: Those systems with pertinent positive or pertinent negative responses have been documented in the HPI. ROS Other: All systems not noted in ROS Statement are negative. Past Medical History Past Medical History: Coronary Artery Disease (CAD), Cancer, Hyperlipidemia, Hypertension, Memory Impairment, Myocardial Infarction ([place]), Osteoarthritis (OA) Additional Past Medical History / Comment(s): 01/25/21 CABG X3 Last Myocardial Infarction Date:: 01/21/21 History of Any Multi-Drug Resistant Organisms: None Reported Past Surgical History: Appendectomy, Bladder Surgery, Bowel Resection, Breast Surgery, Cholecystectomy, Coronary Bypass/CABG, Hysterectomy, Orthopedic Surgery, Tubal Ligation Additional Past Surgical History / Comment(s): cataractsurgery x2 with lens implants, masectomy on right breast, bowel resection with colostomy and reversal, bladder suspension, left knee replacement, skin cancer removed from right ear Past Anesthesia/Blood Transfusion Reactions: No Reported Reaction Past Psychological History: Depression Smoking Status: Unknown if ever smoked Past Alcohol Use History: None Reported Past Drug Use History: None Reported - Past Family History Father Family Medical History: AFIB, Congestive Heart Failure (CHF) Mother Family Medical History: Cancer Additional Family Medical History / Comment(s): breast cancer with mets General Exam Limitations: no limitations Course Vital Signs 03/18/21 03/18/21 03/18/21 22:30 22:59 23:42 Temperature 98.4 F Pulse Rate 98 152 H 133 H Respiratory 18 20 20 Rate Blood Pressure 101/84 88/76 O2 Sat by Pulse 95 99 97 Oximetry 03/19/21 03/19/21 03/19/21 00:04 01:08 01:48 Temperature 98.0 F Pulse Rate 131 H 140 H 105 H Respiratory 20 18 18 Rate Blood Pressure 88/67 109/79 106/77 O2 Sat by Pulse 96 99 97 Oximetry EKG Findings - EKG Comments: EKG Findings:: EKG is A. fib with RVR 148 QRS 1:30 QTC 508 Medical Decision Making - Lab Data Result diagrams: 03/18/21 23:07 03/18/21 23:07 Lab Results 03/18/21 03/18/21 03/18/21 Range/Units 23:07 23:07 23:07 WBC 12.0 H (3.8-10.6) k/uL RBC 5.01 (3.80-5.40) m/uL Hgb 12.8 (11.4-16.0) gm/dL Hct 40.3 (34.0-46.0) % MCV 80.5 (80.0-100.0) fL MCH 25.6 (25.0-35.0) pg MCHC 31.7 (31.0-37.0) g/dL RDW 14.5 (11.5-15.5) % Plt Count 457 H (150-450) k/uL MPV 7.8 Neutrophils % 79 % Lymphocytes % 12 % Monocytes % 5 % Eosinophils % 3 % Basophils % 0 % Neutrophils # 9.5 H (1.3-7.7) k/uL Lymphocytes # 1.4 (1.0-4.8) k/uL Monocytes # 0.6 (0-1.0) k/uL Eosinophils # 0.4 (0-0.7) k/uL Basophils # 0.0 (0-0.2) k/uL PT 10.9 (9.0-12.0) sec INR 1.0 (<1.2) APTT 25.4 (22.0-30.0) sec D-Dimer 5.58 H (<0.60) mg/L FEU Sodium 135 L (137-145) mmol/L Potassium 4.2 (3.5-5.1) mmol/L Chloride 101 (98-107) mmol/L Carbon Dioxide 18 L (22-30) mmol/L Anion Gap 16 mmol/L BUN 26 H (7-17) mg/dL Creatinine 1.35 H (0.52-1.04) mg/dL Est GFR (CKD-EPI)AfAm 45 (>60 ml/min/1.73 sqM) Est GFR (CKD-EPI)NonAf 39 (>60 ml/min/1.73 sqM) Glucose 141 H (74-99) mg/dL Plasma Lactic Acid Jas (0.7-2.0) mmol/L Calcium 9.1 (8.4-10.2) mg/dL Phosphorus 3.4 (2.5-4.5) mg/dL Magnesium 2.0 (1.6-2.3) mg/dL Total Bilirubin 0.6 (0.2-1.3) mg/dL AST 39 H (14-36) U/L ALT 28 (4-34) U/L Alkaline Phosphatase 135 H (38-126) U/L Creatine Kinase 45 (30-135) U/L Troponin I (0.000-0.034) ng/mL NT-Pro-B Natriuret Pep pg/mL Total Protein 7.2 (6.3-8.2) g/dL Albumin 4.1 (3.5-5.0) g/dL TSH 65.000 H (0.465-4.680) mIU/L 03/18/21 03/18/21 03/18/21 Range/Units 23:07 23:07 23:07 WBC (3.8-10.6) k/uL RBC (3.80-5.40) m/uL Hgb (11.4-16.0) gm/dL Hct (34.0-46.0) % MCV (80.0-100.0) fL MCH (25.0-35.0) pg MCHC (31.0-37.0) g/dL RDW (11.5-15.5) % Plt Count (150-450) k/uL MPV Neutrophils % % Lymphocytes % % Monocytes % % Eosinophils % % Basophils % % Neutrophils # (1.3-7.7) k/uL Lymphocytes # (1.0-4.8) k/uL Monocytes # (0-1.0) k/uL Eosinophils # (0-0.7) k/uL Basophils # (0-0.2) k/uL PT (9.0-12.0) sec INR (<1.2) APTT (22.0-30.0) sec D-Dimer (<0.60) mg/L FEU Sodium (137-145) mmol/L Potassium (3.5-5.1) mmol/L Chloride (98-107) mmol/L Carbon Dioxide (22-30) mmol/L Anion Gap mmol/L BUN (7-17) mg/dL Creatinine (0.52-1.04) mg/dL Est GFR (CKD-EPI)AfAm (>60 ml/min/1.73 sqM) Est GFR (CKD-EPI)NonAf (>60 ml/min/1.73 sqM) Glucose (74-99) mg/dL Plasma Lactic Acid Jas 1.5 (0.7-2.0) mmol/L Calcium (8.4-10.2) mg/dL Phosphorus (2.5-4.5) mg/dL Magnesium (1.6-2.3) mg/dL Total Bilirubin (0.2-1.3) mg/dL AST (14-36) U/L ALT (4-34) U/L Alkaline Phosphatase (38-126) U/L Creatine Kinase (30-135) U/L Troponin I 0.098 H* (0.000-0.034) ng/mL NT-Pro-B Natriuret Pep 06754 pg/mL Total Protein (6.3-8.2) g/dL Albumin (3.5-5.0) g/dL TSH (0.465-4.680) mIU/L Disposition Clinical Impression: CAD (coronary artery disease), CHF (congestive heart failure), Atrial fibrillation with RVR Disposition: ADMITTED IP TO THIS HOSP Condition: Serious Is patient prescribed a controlled substance at d/c from ED?: No Referrals: Brian Foster DO [Primary Care Provider] - 1-2 days
[2021-03-18 23:46] LABS: Basophils % (A) 0 %; Eosinophils # (A) 0.4 k/uL (0-0.7); Eosinophils % (A) 3 %; HCT 40.3 % (34.0-46.0); HGB 12.8 gm/dL (11.4-16.0); Lymphocytes # (A) 1.4 k/uL (1.0-4.8); Lymphocytes % (A) 12 %; MCH 25.6 pg (25.0-35.0); MCHC 31.7 g/dL (31.0-37.0); MCV 80.5 fL (80.0-100.0); Mean Platelet Volume 7.8; Monocytes # (A) 0.6 k/uL (0-1.0); Monocytes % (A) 5 %; Neutrophils # (A) 9.5 k/uL (1.3-7.7); Neutrophils % (A) 79 %; Platelet Count 457 k/uL (150-450); RBC 5.01 m/uL (3.80-5.40); RDW 14.5 % (11.5-15.5)
[2021-03-18 23:57] LABS: Albumin 4.1 g/dL (3.5-5.0); Calcium 9.1 mg/dL (8.4-10.2); Phosphorus 3.4 mg/dL (2.5-4.5); Potassium 4.2 mmol/L (3.5-5.1); Total Bilirubin 0.6 mg/dL (0.2-1.3); Total Protein 7.2 g/dL (6.3-8.2)
[2021-03-19 00:11] LABS: Partial Thromboplastin Time 25.4 sec (22.0-30.0); Prothrombin Time 10.9 sec (9.0-12.0)
--- NOTE | 2021-03-19 00:19 | XR ---
EXAMINATION TYPE: XR chest 2V DATE OF EXAM: 03/18/2021 COMPARISON: 03/14/2021 HISTORY: Weakness TECHNIQUE: 2 views FINDINGS: There is blunting of the costophrenic angles. There is minimal pulmonary congestion. Heart appears enlarged. There are chest leads. IMPRESSION: Moderate bilateral pleural effusions. Mild heart failure is possible. Pleural fluid incre ased on the right side compared to old exam.
[2021-03-19] MEDS: METOPROLOL TARTRATE 5 MG/5 ML VIAL IVP STA ×2 (00:56→02:35)
[2021-03-19] MEDS ORDERED: ONDANSETRON 4 MG/2 ML VIAL IVP STA (00:56)
[2021-03-19] MEDS ORDERED: DEXTROSE 5% IN WATER 100 ML with AMIODARONE 150 MG IV ONE (01:00)
[2021-03-19] MEDS ORDERED: AMIODARONE 360 MG in DEXTROSE 5% IN WATER 200 ML IV ONE ×2 (01:15)
[2021-03-19] MEDS ORDERED: ONDANSETRON 4 MG/2 ML VIAL IVP PRN (01:49)
[2021-03-19] MEDS ORDERED: HYDROmorphone 0.5 MG/0.5 ML SYRINGE IVP PRN (01:49)
[2021-03-19] MEDS ORDERED: HYDROmorphone 0.5 MG/0.5 ML SYRINGE IVP STA (01:49)
[2021-03-19] MEDS ORDERED: NALOXONE 0.4 MG/ML 1 ML VIAL IV PRN (02:53)
[2021-03-19] MEDS ORDERED: MORPHINE SULFATE 4 MG/ML SYRINGE IV PRN (02:53)
[2021-03-19] MEDS ORDERED: SODIUM CHLORIDE 0.9% 1,000 ML IV SCH (03:00)
[2021-03-19] MEDS ORDERED: ALPRAZolam 1 MG TAB PO PRN (03:09)
[2021-03-19] MEDS ORDERED: AMITRIPTYLINE HCL 10 MG TAB PO SCH (03:25)
[2021-03-19 06:03] VITALS: TEMP 97.9
[2021-03-19] MEDS ORDERED: AMIODARONE 450 MG in DEXTROSE 5% IN WATER 250 ML IV SCH ×2 (07:30)
[2021-03-19] MEDS ORDERED: MELATONIN 5 MG TABLET PO PRN (08:11)
[2021-03-19] MEDS ORDERED: ACETAMINOPHEN TAB 325 MG TAB PO PRN (08:11)
[2021-03-19] MEDS ORDERED: ALPRAZolam 0.5 MG TAB PO PRN (08:15)
[2021-03-19 08:30] VITALS: RESP 16
[2021-03-19] MEDS ORDERED: methIMAzole 5 MG TAB PO SCH (09:00)
[2021-03-19] MEDS ORDERED: ASPIRIN 81 MG PO SCH (09:00)
[2021-03-19] MEDS ORDERED: FUROSEMIDE 10 MG/ML 4 ML VIAL IV SCH (09:00)
[2021-03-19] MEDS ORDERED: CLOPIDOGREL 75 MG TAB PO SCH (09:00)
[2021-03-19] MEDS ORDERED: APIXABAN 2.5 MG TABLET PO SCH ×3 (09:00→21:00)
[2021-03-19] MEDS ORDERED: AMIODARONE 200 MG TAB PO SCH (09:15)
--- NOTE | 2021-03-19 10:24 | P.CRDCN ---
History of Present Illness Consult date: 03/19/21 History of present illness: HISTORY OF PRESENT ILLNESS: This is a 75-year-old female with a past medical history significant for coronary artery disease with recent CABG x 3 in January 2021, ischemic cardiomyopathy, hypertension, hyperlipidemia, breast cancer with previous mastectomy, and paroxysmal atrial fibrillation. Patient follows in the office with Dr. Hess. We have been asked to see the patient in consultation for A. fib with RVR. Patient examined at the bedside in the emergency room. Patient presented to the hospital secondary to palpitations. Patient was found to be in A. fib with RVR. Patient was started on amiodarone drip and she subsequently converted to sinus mechanism. Telemetry at the time of examination reveals sinu s bradycardia with a heart rate in the 50s. Patient denies chest pain or pressure. She denies shortness of breath. EKG reveals atrial fibrillation with RVR Chest xray moderate bilateral pleural effusions. Mild heart failure is possible. Pleural fluid is increased on the right side compared to old exam. Laboratory data: WBC 12.0. Hemoglobin 12.8. Platelet count 457. Sodium 135. Potassium 4.2. BUN 26. Creatinine 1.35. Lactic acid 1.5. ProBNP 14,600. Troponin 0.098. 0.092. 0.103. TSH 65. Free T4 0.63. Current home cardiac medications include amiodarone 600 mg daily, Eliquis 2.5 mg twice a day, aspirin 81 mg daily, Plavix 75 mg daily, Lasix 40 mg daily, losartan 25 mg daily, Crestor 20 mg daily, Norvasc 5 mg daily Most recent echocardiogram obtained on 03/04/2021 reveals ejection fraction 30- 35%, apex hypokinesis. Patient underwent nuclear stress test on 03/06/2021 revealing large fixed defect from Pat will with prior infarct along the lateral wall near the cardiac base to the cardiac apex. Ejection fraction 38%. No reversible component clearly identified. Dyskinesia of the distal lateral wall global hypokinesia. REVIEW OF SYSTEMS: At the time of my exam: CONSTITUTIONAL: Denies fever or chills. HEENT: Denies blurred vision, vision changes, or eye pain. Denies hemoptysis CARDIOVASCULAR: Denies chest pain. Denies orthopnea. Denies PND. Denies palpitations RESPIRATORY: Denies shortness of breath. GASTROINTESTINAL: Denies abdominal pain. Denies nausea or vomiting. HEMATOLOGIC: Denies bleeding disorders. GENITOURINARY: Denies any blood in urine. SKIN: Denies pruitis. Denies rash. PHYSICAL EXAM: VITAL SIGNS: Reviewed. GENERAL: Well-developed in no acute distress. HEENT: Head is normocephalic. Pupils are equal, round. Sclerae anicteric. Mucous membranes of the mouth are moist. Neck supple. No JVD or thyromegaly LUNGS: Respirations even and unlabored. Lungs essentially clear to auscultation bilaterally. HEART: Regular rate and rhythm. S1 and S2 heard. ABDOMEN: Soft. Nondistended. Nontender. EXTREMITIES: Normal range of motion. No clubbing or cyanosis. Peripheral pulses intact. Trace bilateral lower extremity edema NEUROLOGIC: Awake and alert. Oriented x 3. ASSESSMENT: Paroxysmal atrial fibrillation with RVR, currently maintaining sinus bradycardia Coronary artery disease with recent CABG 3 Abnormal troponins, chronically elevated, not suggestive of ACS Acute exacerbation of systolic congestive heart failure Ischemic cardiomyopathy Hypertension Hyperlipidemia History of breast cancer with mastectomy PLAN: Resume home cardiac medications Add metoprolol 25mg daily Resume oral amio at a lower dose of 200mg daily Patient evaluated by Dr. White in the ER. She is cleared for discharge home today from a cardiac standpoint Patient to follow up next week with Dr. Hess Nurse practitioner note has been reviewed by physician. Signing provider agrees with the documented findings, assessment, and plan of care. Past Medical History Past Medical History: Coronary Artery Disease (CAD), Cancer, Hyperlipidemia, Hypertension, Memory Impairment, Myocardial Infarction ([place]), Osteoarthritis ([place]) Additional Past Medical History / Comment(s): 01/25/21 CABG X3 Last Myocardial Infarction Date:: 01/21/21 History of Any Multi-Drug Resistant Organisms: None Reported Past Surgical History: Appendectomy, Bladder Surgery, Bowel Resection, Breast Surgery, Cholecystectomy, Coronary Bypass/CABG, Hysterectomy, Orthopedic Surgery, Tubal Ligation Additional Past Surgical History / Comment(s): cataractsurgery x2 with lens implants, masectomy on right breast, bowel resection with colostomy and reversal, bladder suspension, left knee replacement, skin cancer removed from right ear Past Anesthesia/Blood Transfusion Reactions: No Reported Reaction Past Psychological History: Depression Smoking Status: Unknown if ever smoked Past Alcohol Use History: None Reported Past Drug Use History: None Reported - Past Family History Father Family Medical History: AFIB, Congestive Heart Failure (CHF) Mother Family Medical History: Cancer Additional Family Medical History / Comment(s): breast cancer with mets Medications and Allergies Home Medications Medication Instructions Recorded Confirmed Type Amitriptyline HCl [Elavil] 20 mg PO HS 01/21/21 03/19/21 History Cholecalciferol [Vitamin D3 (25 50 mcg PO DAILY@0800 01/21/21 03/19/21 History Mcg = 1000 Iu)] Rosuvastatin [Crestor] 20 mg PO HS@2200 01/21/21 03/19/21 History buPROPion [Wellbutrin] 75 mg PO DAILY@0800 01/21/21 03/19/21 History Acetaminophen Tab [Tylenol] 650 mg PO Q4HR PRN tab 01/30/21 03/19/21 Rx Clopidogrel [Plavix] 75 mg PO DAILY tab 01/30/21 03/19/21 Rx Melatonin 5 mg PO HS tablet 01/30/21 03/19/21 Rx Pantoprazole [Protonix] 40 mg PO AC-BRKFST tablet.dr 01/30/21 03/19/21 Rx amLODIPine [Norvasc] 5 mg PO DAILY@1200 tab 01/30/21 03/19/21 Rx methIMAzole [Tapazole] 15 mg PO DAILY tab 01/30/21 03/19/21 Rx Aspirin 81 mg PO DAILY tab 03/08/21 03/19/21 Rx Losartan [Cozaar] 25 mg PO DAILY 30 Days #30 tab 03/08/21 03/19/21 Rx Apixaban [Eliquis] 2.5 mg PO BID #60 tab 03/17/21 03/19/21 Rx Furosemide [Lasix] 40 mg PO DAILY 30 Days #60 tablet 03/17/21 03/19/21 Rx Sertraline [Zoloft] 100 mg PO DAILY@0800 #30 tab 03/17/21 03/19/21 Rx ALPRAZolam [Xanax] 1 mg PO BID@0800,2200 03/19/21 03/19/21 History Amiodarone [Cordarone] See Taper PO DAILY 03/19/21 03/19/21 History Allergies Allergy/AdvReac Type Severity Reaction Status Date / Time No Known Allergies Allergy Verified 03/19/21 07:41 Physical Exam Vitals: Vital Signs Temp Pulse Resp BP Pulse Ox 03/19/21 10:06 50 L 16 109/48 100 03/19/21 07:30 50 L 16 116/52 99 03/19/21 06:00 97.9 F 53 L 14 111/53 99 03/19/21 03:30 97.8 F 93 16 90/60 100 03/19/21 01:48 105 H 18 106/77 97 03/19/21 01:08 98.0 F 140 H 18 109/79 99 03/19/21 00:04 131 H 20 88/67 96 03/18/21 23:42 133 H 20 88/76 97 03/18/21 22:59 152 H 20 101/84 99 03/18/21 22:30 98.4 F 98 18 95 Intake and Output 03/18/21 03/19/21 03/19/21 22:59 06:59 14:59 Other: Weight 64.864 kg Results 03/18/21 23:07 03/18/21 23:07 Cardiac Enzymes 03/18/21 03/18/21 03/19/21 Range/Units 23:07 23:07 05:20 AST 39 H (14-36) U/L Troponin I 0.098 H* 0.092 H* (0.000-0.034) ng/mL 03/19/21 Range/Units 08:10 AST (14-36) U/L Troponin I 0.103 H* (0.000-0.034) ng/mL Coagulation 03/18/21 Range/Units 23:07 PT 10.9 (9.0-12.0) sec APTT 25.4 (22.0-30.0) sec CBC 03/18/21 Range/Units 23:07 WBC 12.0 H (3.8-10.6) k/uL RBC 5.01 (3.80-5.40) m/uL Hgb 12.8 (11.4-16.0) gm/dL Hct 40.3 (34.0-46.0) % Plt Count 457 H (150-450) k/uL Comprehensive Metabolic Panel 03/18/21 Range/Units 23:07 Sodium 135 L (137-145) mmol/L Potassium 4.2 (3.5-5.1) mmol/L Chloride 101 (98-107) mmol/L Carbon Dioxide 18 L (22-30) mmol/L BUN 26 H (7-17) mg/dL Creatinine 1.35 H (0.52-1.04) mg/dL Glucose 141 H (74-99) mg/dL Calcium 9.1 (8.4-10.2) mg/dL AST 39 H (14-36) U/L ALT 28 (4-34) U/L Alkaline Phosphatase 135 H (38-126) U/L Total Protein 7.2 (6.3-8.2) g/dL Albumin 4.1 (3.5-5.0) g/dL Current Medications Generic Name Dose Route Start Last Admin Trade Name Freq PRN Reason Stop Dose Admin Acetaminophen 650 mg 03/19/21 08:11 Acetaminophen Tab 325 Mg Tab PO Q4HR PRN Fever and/ or Pain Alprazolam 0.5 mg 03/19/21 08:15 Alprazolam 0.5 Mg Tab PO BID@0800,2200 PRN Anxiety Amiodarone HCl 200 mg 03/19/21 09:15 Amiodarone 200 Mg Tab PO DAILY [facility] Amitriptyline HCl 20 mg 03/19/21 03:25 03/19/21 03:36 Amitriptyline Hcl 10 Mg Tab PO 20 mg HS [facility] Administration Apixaban 2.5 mg 03/19/21 21:00 Apixaban 2.5 Mg Tablet PO BID [facility] Protocol Aspirin 81 mg 03/19/21 09:00 Aspirin 81 Mg PO DAILY [facility] Atorvastatin Calcium 40 mg 03/19/21 22:00 Atorvastatin 40 Mg Tab PO HS@2200 [facility] Bupropion HCl 75 mg 03/20/21 08:00 Bupropion 75 Mg Tab PO DAILY@0800 [facility] Cholecalciferol 50 mcg 03/20/21 08:00 Cholecalciferol 25 Mcg (1000 Iu) Tablet PO DAILY@0800 [facility] Clopidogrel Bisulfate 75 mg 03/19/21 09:00 Clopidogrel 75 Mg Tab PO DAILY [facility] Furosemide 40 mg 03/19/21 09:00 Furosemide 10 Mg/Ml 4 Ml Vial IV Q12HR [facility] Hydromorphone HCl 0.5 mg 03/19/21 01:49 Hydromorphone 0.5 Mg/0.5 Ml Syringe IVP Q4HR PRN Pain Sodium Chloride 1,000 mls @ 20 mls/hr 03/19/21 03:00 03/19/21 05:59 Saline 0.9% IV Not Given .Q24H JAZ Melatonin 5 mg 03/19/21 08:11 Melatonin 5 Mg Tablet PO HS PRN Insomnia Methimazole 15 mg 03/19/21 09:00 Methimazole 5 Mg Tab PO DAILY JAZ Metoprolol Tartrate 25 mg 03/20/21 09:00 Metoprolol Tartrate 25 Mg Tab PO DAILY JAZ Morphine Sulfate 4 mg 03/19/21 02:53 Morphine Sulfate 4 Mg/Ml Syringe IV Q4HR PRN Severe Pain Naloxone HCl 0.2 mg 03/19/21 02:53 Naloxone 0.4 Mg/Ml 1 Ml Vial IV Q2M PRN Opioid Reversal Ondansetron HCl 4 mg 03/19/21 01:49 Ondansetron 4 Mg/2 Ml Vial IVP Q6HR PRN Nausea And Vomiting Pantoprazole Sodium 40 mg 03/20/21 07:30 Pantoprazole 40 Mg Tablet PO AC-BRKFST JAZ Sertraline HCl 100 mg 03/20/21 08:00 Sertraline 100 Mg Tab PO DAILY@0800 JAZ Intake and Output 03/18/21 03/19/21 03/19/21 22:59 06:59 14:59 Other: Weight 64.864 kg 03/18/21 23:07 03/18/21 23:07
--- NOTE | 2021-03-19 10:44 | P.HPIM ---
History of Present Illness Please consider this as combined H&P and discharge summary This is a pleasant 75 years old female with past medical history of Coronary Artery Disease, Cancer, Hyperlipidemia, Hypertension, Memory Impairment, Myocardial Infarction, Osteoarthritis . Her corporate quality manager is Dr. Hess Patient was just discharged from the hospital 2 days ago for tachycardia suspicious for A. fib and chest pain. she underwent a nuclear stress test that revealed impaired LV systolic function but no reversible ischemia. Also She was discharged 03/09/2021 after being admitted for new onset systolic heart failure. Echocardiogram reveals impaired LV systolic function with ejection fraction 30- 35%, apical anterior, apical lateral, apical inferior, apical septal and apical hypokinesia noted This time she presents because of hypotension and tachycardia with right shoulder pain. Last time She was discharged on aspirin 81 mg daily, Plavix 75 mg daily, Lasix 40 mg twice a day, losartan 25 mg daily, Lopressor 25 mg twice a day, rosuvastatin 20 mg daily and amlodipine 5 mg daily. Also amiodarone and Eliquis were added Also patient was on methimazole 15 mg daily. However patient was taking her medication including Eliquis, aspirin and Plavix and oral Lasix daily as confirmed by patient and daughter at bedside. She was supposed to be on tapered to amiodarone when she was taking this as well However yesterday she started having feeling palpitations right shoulder pain with tachycardia Likely her heart rate is controlled and she is asymptomatic and back to her baseline On admission she received 1.5 L of normal saline, IV metoprolol and started on amiodarone drip. Vitals are stable. She was tachycardic on admission at 140, currently heart rate is 53. Labs showing mild leukocytosis of 12 K elevated d-d but this looks chronic nelida at 5.5. Elevated creatinine at 1.3, with baseline is 1.0-1.3 Troponin are elevated at 0.098-0.092 Liver enzymes are not markedly elevated. Electrolytes with no significant abnormality. High TSH as 65. Coronavirus not detected EKG showing atrial fibrillation with RVR at 148 Chest x-ray showing moderate bilateral pleural effusion. Mild heart failure as possible. Pleural fluid increase on the right side compared to old exam MAPS was checked and she is on Xanax 1 mg twice a day It looks like patient is wished to sinus rhythm while she is on amiodarone drip. I discussed the case with Dr. White/FLASH DEVELOPER Steven begin her for discharge on amiodarone 200 mg daily and metoprolol 25 mg daily I talked to the patient and daughter at bedside and they agree for discharge and follow-up as an outpatient. Patient has a follow-up appointment with Dr. Brewer tomorrow and Dr. Hess next week on 03/25 that they are aware of Review of Systems CONSTITUTIONAL: No fever, no malaise, no fatigue. HEENT: No recent visual problems or hearing problems. Denied any sore throat. CARDIOVASCULAR: No orthopnea, PND, no palpitations, no syncope. PULMONARY: No shortness of breath, no cough, no hemoptysis. GASTROINTESTINAL: No diarrhea, no nausea, no vomiting, no abdominal pain. Normoactive bowel sounds. NEUROLOGICAL: No headaches, no weakness, no numbness. HEMATOLOGICAL: Denies any bleeding or petechiae. GENITOURINARY: Denies any burning micturition, frequency, or urgency. MUSCULOSKELETAL/RHEUMATOLOGICAL: Denies any joint pain, swelling, or any muscle pain. ENDOCRINE: Denies any polyuria or polydipsia. Past Medical History Past Medical History: Coronary Artery Disease (CAD), Cancer, Hyperlipidemia, Hypertension, Memory Impairment, Myocardial Infarction (MS), Osteoarthritis (OA) Additional Past Medical History / Comment(s): 01/25/21 CABG X3 Last Myocardial Infarction Date:: 01/21/21 History of Any Multi-Drug Resistant Organisms: None Reported Past Surgical History: Appendectomy, Bladder Surgery, Bowel Resection, Breast Surgery, Cholecystectomy, Coronary Bypass/CABG, Hysterectomy, Orthopedic Surgery, Tubal Ligation Additional Past Surgical History / Comment(s): cataractsurgery x2 with lens implants, masectomy on right breast, bowel resection with colostomy and reversal, bladder suspension, left knee replacement, skin cancer removed from right ear Past Anesthesia/Blood Transfusion Reactions: No Reported Reaction Past Psychological History: Depression Smoking Status: Unknown if ever smoked Past Alcohol Use History: None Reported Past Drug Use History: None Reported - Past Family History Father Family Medical History: AFIB, Congestive Heart Failure (CHF) Mother Family Medical History: Cancer Additional Family Medical History / Comment(s): breast cancer with mets Medications and Allergies Home Medications Medication Instructions Recorded Confirmed Type Amitriptyline HCl [Elavil] 20 mg PO HS 01/21/21 03/19/21 History Cholecalciferol [Vitamin D3 (25 50 mcg PO DAILY@0800 01/21/21 03/19/21 History Mcg = 1000 Iu)] Rosuvastatin [Crestor] 20 mg PO HS@2200 01/21/21 03/19/21 History buPROPion [Wellbutrin] 75 mg PO DAILY@0800 01/21/21 03/19/21 History Acetaminophen Tab [Tylenol] 650 mg PO Q4HR PRN tab 01/30/21 03/19/21 Rx Clopidogrel [Plavix] 75 mg PO DAILY tab 01/30/21 03/19/21 Rx Melatonin 5 mg PO HS tablet 01/30/21 03/19/21 Rx Pantoprazole [Protonix] 40 mg PO AC-BRKFST tablet. 01/30/21 03/19/21 Rx methIMAzole [Tapazole] 15 mg PO DAILY tab 01/30/21 03/19/21 Rx Aspirin 81 mg PO DAILY tab 03/08/21 03/19/21 Rx Losartan [Cozaar] 25 mg PO DAILY 30 Days #30 tab 03/08/21 03/19/21 Rx Apixaban [Eliquis] 2.5 mg PO BID #60 tab 03/17/21 03/19/21 Rx Furosemide [Lasix] 40 mg PO DAILY 30 Days #60 tablet 03/17/21 03/19/21 Rx Sertraline [Zoloft] 100 mg PO DAILY@0800 #30 tab 03/17/21 03/19/21 Rx ALPRAZolam [Xanax] 0.5 mg PO BID@0800,2200 PRN tab 03/19/21 Rx Amiodarone [Cordarone] 200 mg PO DAILY #30 tab 03/19/21 Rx Metoprolol Tartrate [Lopressor] 25 mg PO DAILY #30 tab 03/19/21 Rx Allergies Allergy/AdvReac Type Severity Reaction Status Date / Time No Known Allergies Allergy Verified 03/19/21 07:41 Physical Exam Vitals: Vital Signs Temp Pulse Resp BP Pulse Ox 03/19/21 06:00 97.9 F 53 L 14 111/53 99 03/19/21 03:30 97.8 F 93 16 90/60 100 03/19/21 01:48 105 H 18 106/77 97 03/19/21 01:08 98.0 F 140 H 18 109/79 99 03/19/21 00:04 131 H 20 88/67 96 03/18/21 23:42 133 H 20 88/76 97 03/18/21 22:59 152 H 20 101/84 99 03/18/21 22:30 98.4 F 98 18 95 Intake and Output 03/18/21 03/19/21 03/19/21 22:59 06:59 14:59 Other: Weight 64.864 kg GENERAL: The patient is alert and oriented x3, not in any acute distress. Well developed, well nourished. HEENT: Pupils are round and equally reacting to light. EOMI. No scleral icterus. No conjunctival pallor. Normocephalic, atraumatic. No pharyngeal erythema. No thyromegaly. CARDIOVASCULAR: S1 and S2 present. No murmurs, rubs, or gallops. PULMONARY: Chest is clear to auscultation, no wheezing or crackles. ABDOMEN: Soft, nontender, nondistended, normoactive bowel sounds. No palpable organomegaly. MUSCULOSKELETAL: No joint swelling or deformity. EXTREMITIES: No cyanosis, clubbing, or pedal edema. NEUROLOGICAL: Gross neurological examination did not reveal any focal deficits. SKIN: No rashes. No petechiae Results CBC & Chem 7: 03/18/21 23:07 03/18/21 23:07 Labs: Abnormal Lab Results - Last 24 Hours (Table) 03/18/21 03/18/21 03/18/21 Range/Units 23:07 23:07 23:07 WBC 12.0 H (3.8-10.6) k/uL Plt Count 457 H (150-450) k/uL Neutrophils # 9.5 H (1.3-7.7) k/uL D-Dimer 5.58 H (<0.60) mg/L FEU Sodium 135 L (137-145) mmol/L Carbon Dioxide 18 L (22-30) mmol/L BUN 26 H (7-17) mg/dL Creatinine 1.35 H (0.52-1.04) mg/dL Glucose 141 H (74-99) mg/dL AST 39 H (14-36) U/L Alkaline Phosphatase 135 H (38-126) U/L Troponin I (0.000-0.034) ng/mL TSH 65.000 H (0.465-4.680) mIU/L 03/18/21 03/19/21 Range/Units 23:07 05:20 WBC (3.8-10.6) k/uL Plt Count (150-450) k/uL Neutrophils # (1.3-7.7) k/uL D-Dimer (<0.60) mg/L FEU Sodium (137-145) mmol/L Carbon Dioxide (22-30) mmol/L BUN (7-17) mg/dL Creatinine (0.52-1.04) mg/dL Glucose (74-99) mg/dL AST (14-36) U/L Alkaline Phosphatase (38-126) U/L Troponin I 0.098 H* 0.092 H* (0.000-0.034) ng/mL TSH (0.465-4.680) mIU/L Assessment and Plan Assessment: Atrial fibrillation with RVR due to nonadherence to treatment acute on chronic systolic CHF with bilateral pleural effusion right more than left. Ejection fraction is 30-35% Elevated TSH, recheck TSH and free T4 Possible acute kidney injury with elements of chronic kidney disease chronically elevated troponin Hypertension Hyperlipidemia History of coronary artery disease History of osteoarthritis History of memory impairment Plan: This is a pleasant 75 years old female who presents with CHF and A. fib Start Lasix Continue with amiodarone 200 mg daily and metoprolol 25 mg daily. Resume Eliquis. Follow-up with corporate quality manager recommendation Patient was cleared for discharge by corporate quality manager Dr. White and close follow-up with her corporate quality manager Dr. Hess next week h symptomatic treatment. Resume home medication. Monitor lytes and vitals. DVT and GI prophylaxis. Further recommendations depends on the clinical course of the patient DVT prophylasis: Eliquis GI prophylaxis: PPI Patient under artery with this plan
--- NOTE | 2021-03-19 11:43 | CDI ---
Documentation Clarification Form Date: 03/19/2021 11:15:48 AM From: Jewels Urbina RN, CCDS Admit Date: 03/19/2021 02:53:00 AM Patient Name: Jenny Larkin Visit Number: [id number] ATTENTION: The Clinical Documentation Specialists (CDI) and [facility] Coding Staff appreciate your assistance in clarifying documentation. Please respond to the clarification below the line at the bottom and electronically sign. The CDI & [facility] Coding staff will review the response and follow-up if needed. Please note: Queries are made part of the Legal Health Record. If you have any questions, please contact the author of this message via ITS. Dr. Alonzo E Delfino Unspecified CKD is documented 03/19/2021 H&P. Additional clarification regarding the stage of CKD is requested. History/Risk Factors: 03/14/21 Patients Historical BUN/CR/GFR 36/1.53/34 CAD, HTN, [place], OA, CABG x 3 Clinical Indicators: Current BUN/CR/GFR: 26/1.35/39 H&P: "Atrial fibrillation with RVR due to nonadherence to treatment acute on chronic systolic CHF with bilateral pleural effusion right more than left. Ejection fraction is 30-35%. Possible acute kidney injury with elements of chronic kidney disease." Treatment: Lasix 40 mg Po QD 03/18 500 cc IVF bolus followed by 130/hr. x 1 L, then decreased to 20 cc/hr. Please clarify the stage of the CKD, if known: [ ] CKD Stage 3 (GFR 30-59) [ ] CKD Stage 3a (GFR 45-59) [ ] CKD Stage 3b (GFR 30-44) [ ] Other, please specify [ ] Unable to determine (Template last revised: July 2020) stage 2-3 MTDD
[2021-03-19 12:11] VITALS: BP 118/64; PULSE 57
[2021-03-19] MEDS ORDERED: METOPROLOL TARTRATE 25 MG TAB PO SCH (21:00)
[2021-03-19] MEDS ORDERED: ATORVASTATIN 40 MG TAB PO SCH (22:00)
[2021-03-20] MEDS ORDERED: PANTOPRAZOLE 40 MG TABLET PO SCH (07:30)
[2021-03-20] MEDS ORDERED: SERTRALINE 100 MG TAB PO SCH (08:00)
[2021-03-20] MEDS ORDERED: buPROPion 75 MG TAB PO SCH (08:00)
[2021-03-20] MEDS ORDERED: CHOLECALCIFEROL 25 MCG (1000 IU) TABLET PO SCH (08:00)
[2021-03-20] MEDS ORDERED: METOPROLOL TARTRATE 25 MG TAB PO SCH (09:00)
== END 2021-03-19 12:29 | disposition home or self-care (01) | DRG 308 ==
LOC: EC 22:16 → 3SCARD 03-19 02:53
PROVIDERS: ADMIT Hospitalist; ATTEND Hospitalist
DX: I48.0 Paroxysmal atrial fibrillation (principal); I50.23 Acute on chronic systolic (congestive) heart failure; N17.9 Acute kidney failure, unspecified; I25.5 Ischemic cardiomyopathy; I11.0 Hypertensive heart disease with heart failure; R53.1 Weakness; Z20.822 Contact with and (suspected) exposure to COVID-19; N18.30 Chronic kidney disease, stage 3 unspecified; I25.10 Atherosclerotic heart disease of native coronary artery without angina pectoris; R00.1 Bradycardia, unspecified; Z79.01 Long term (current) use of anticoagulants; M19.90 Unspecified osteoarthritis, unspecified site; R00.2 Palpitations; D72.829 Elevated white blood cell count, unspecified; E78.5 Hyperlipidemia, unspecified; F32.9 Major depressive disorder, single episode, unspecified; I25.2 Old myocardial infarction; Z79.02 Long term (current) use of antithrombotics/antiplatelets; Z79.82 Long term (current) use of aspirin; Z79.899 Other long term (current) drug therapy; Z85.3 Personal history of malignant neoplasm of breast; Z85.828 Personal history of other malignant neoplasm of skin; Z90.710 Acquired absence of both cervix and uterus; Z95.1 Presence of aortocoronary bypass graft; Z96.1 Presence of intraocular lens; Z90.11 Acquired absence of right breast and nipple; Z96.652 Presence of left artificial knee joint; Z98.51 Tubal ligation status; Z90.49 Acquired absence of other specified parts of digestive tract; Z87.19 Personal history of other diseases of the digestive system
CPT/HCPCS: 71046; 80053; 82550; 83605; 83735; 83880; 84100; 84439; 84443; 84484; 85025; 85379; 85610; 85730; 87635; 93005

== ENCOUNTER 2021-03-31 12:12 | Observation (INO) | payer MEDICARE ==
[2021-03-31] MEDS ORDERED: ONDANSETRON 4 MG/2 ML VIAL IVP STA (12:55)
[2021-03-31] MEDS ORDERED: SODIUM CHLORIDE 0.9% 1,000 ML IV STA ×2 (12:55→16:53)
--- NOTE | 2021-03-31 12:58 | ED ---
General Adult HPI - General Chief complaint: Nausea/Vomiting/Diarrhea Stated complaint: Nausea/Vomiting Source: patient, EMS, old records reviewed Mode of arrival: EMS Limitations: physical limitation - History of Present Illness Initial comments: 76-year-old female with past medical history of breast cancer in remission, coronary artery bypass grafting in January, congestive heart failure who presents to the emergency department with nausea and vomiting. Patient states that her symptoms started last night. She has had multiple episodes of nonbilious, nonbloody vomiting. She has been unable to hold down any food or water. Denies eating any tainted foods. No sick contacts with similar symptoms. She has also had nonbloody diarrhea. No recent antibiotic use. No history of C. diff. Admits to generalized abdominal wall discomfort from the incessant retching. She does not take any medicines at home for her vomiting. No fevers. Admits to chronic cough. No other alleviating, precipitating or modifying factors - Related Data Home Medications Medication Instructions Recorded Confirmed Amitriptyline HCl [Elavil] 20 mg PO HS 01/21/21 03/31/21 Cholecalciferol [Vitamin D3 (25 50 mcg PO DAILY@0800 01/21/21 03/31/21 Mcg = 1000 Iu)] Rosuvastatin [Crestor] 20 mg PO HS@2200 01/21/21 03/31/21 buPROPion [Wellbutrin] 75 mg PO DAILY@0800 01/21/21 03/31/21 ALPRAZolam [Xanax] 1 mg PO BID 03/31/21 03/31/21 Previous Rx's Medication Instructions Recorded Acetaminophen Tab [Tylenol] 650 mg PO Q4HR PRN tab 01/30/21 Clopidogrel [Plavix] 75 mg PO DAILY tab 01/30/21 Melatonin 5 mg PO HS tablet 01/30/21 Pantoprazole [Protonix] 40 mg PO AC-BRKFST tablet. 01/30/21 methIMAzole [Tapazole] 15 mg PO DAILY tab 01/30/21 Aspirin 81 mg PO DAILY tab 03/08/21 Losartan [Cozaar] 25 mg PO DAILY 30 Days #30 tab 03/08/21 Apixaban [Eliquis] 2.5 mg PO BID #60 tab 03/17/21 Furosemide [Lasix] 40 mg PO DAILY 30 Days #60 tablet 03/17/21 Sertraline [Zoloft] 100 mg PO DAILY@0800 #30 tab 03/17/21 Amiodarone [Cordarone] 200 mg PO DAILY #30 tab 03/19/21 Metoprolol Tartrate [Lopressor] 25 mg PO DAILY #30 tab 03/19/21 Allergies Allergy/AdvReac Type Severity Reaction Status Date / Time No Known Allergies Allergy Verified 03/19/21 07:41 Review of Systems ROS Statement: Those systems with pertinent positive or pertinent negative responses have been documented in the HPI. ROS Other: All systems not noted in ROS Statement are negative. Past Medical History Past Medical History: Coronary Artery Disease (CAD), Cancer, Hyperlipidemia, Hypertension, Memory Impairment, Myocardial Infarction ([place]), Osteoarthritis (OA) Additional Past Medical History / Comment(s): 01/25/21 CABG X3 Last Myocardial Infarction Date:: 01/21/21 History of Any Multi-Drug Resistant Organisms: None Reported Past Surgical History: Appendectomy, Bladder Surgery, Bowel Resection, Breast Surgery, Cholecystectomy, Coronary Bypass/CABG, Hysterectomy, Orthopedic Surgery, Tubal Ligation Additional Past Surgical History / Comment(s): cataractsurgery x2 with lens implants, masectomy on right breast, bowel resection with colostomy and rev ersal, bladder suspension, left knee replacement, skin cancer removed from right ear Past Anesthesia/Blood Transfusion Reactions: No Reported Reaction Past Psychological History: Depression Smoking Status: Unknown if ever smoked Past Alcohol Use History: None Reported Past Drug Use History: None Reported - Past Family History Father Family Medical History: AFIB, Congestive Heart Failure (CHF) Mother Family Medical History: Cancer Additional Family Medical History / Comment(s): breast cancer with mets General Exam Limitations: physical limitation Course Vital Signs 03/31/21 03/31/21 03/31/21 12:36 15:00 17:00 Temperature 99 F Pulse Rate 64 60 62 Respiratory 16 16 17 Rate Blood Pressure 98/58 122/88 110/69 O2 Sat by Pulse 94 L 99 97 Oximetry EKG Findings - EKG Comments: EKG Findings:: EKG demonstrates a sinus bradycardia with a ventricular rate of 58. OK interval 178. QRS 144. QTC of 492. Left bundle branch block. Negative for sgarbossa criteria Medical Decision Making - Medical Decision Making Upon arrival patient is placed into room 24. A thorough history and physical exam is performed. IV is established and the patient is started on gentle fluids at 100 mL per hour. She was also given 4 mg of Zofran for nausea. Laboratory studies were conducted and reviewed. Creatinine 1.5 which is near the patient's baseline. Troponin of 0.037 which is coming down from previous values. UA does demonstrate small leukocyte esterase, few white blood cell clumps with some rare bacteria. Patient is given a dose of Rocephin. Covid negative. Chest x-ray demonstrates IVs or effusions right greater than left which was seen previously. Likely associated atelectasis versus edema correlate to exclude pneumonia. Results are discussed with the patient. She has not had any episodes of nausea and vomiting since she's been the emergency room. I did discuss diagnosis, differential and treatment options. We do attempt to get the patient up to ambulate however she is extremely weak. Patient feels nervous going home due to the weakness and therefore did call and speak with Dr. Koehler for admission. He does agree to admit the patient. She is currently awaiting a bed on the floor - Lab Data Result diagrams: 03/31/21 13:57 03/31/21 13:57 Lab Results 03/31/21 03/31/21 03/31/21 Range/Units 13:57 13:57 13:57 WBC 11.4 H (3.8-10.6) k/uL RBC 4.85 (3.80-5.40) m/uL Hgb 12.1 (11.4-16.0) gm/dL Hct 38.3 (34.0-46.0) % MCV 79.1 L (80.0-100.0) fL MCH 24.9 L (25.0-35.0) pg MCHC 31.5 (31.0-37.0) g/dL RDW 14.6 (11.5-15.5) % Plt Count 449 (150-450) k/uL MPV 6.8 Neutrophils % 87 % Lymphocytes % 6 % Monocytes % 4 % Eosinophils % 2 % Basophils % 0 % Neutrophils # 9.9 H (1.3-7.7) k/uL Lymphocytes # 0.6 L (1.0-4.8) k/uL Monocytes # 0.5 (0-1.0) k/uL Eosinophils # 0.2 (0-0.7) k/uL Basophils # 0.0 (0-0.2) k/uL PT (9.0-12.0) sec INR (<1.2) APTT (22.0-30.0) sec Sodium (137-145) mmol/L Potassium (3.5-5.1) mmol/L Chloride (98-107) mmol/L Carbon Dioxide (22-30) mmol/L Anion Gap mmol/L BUN (7-17) mg/dL Creatinine (0.52-1.04) mg/dL Est GFR (CKD-EPI)AfAm (>60 ml/min/1.73 sqM) Est GFR (CKD-EPI)NonAf (>60 ml/min/1.73 sqM) Glucose (74-99) mg/dL Plasma Lactic Acid Jas 0.9 (0.7-2.0) mmol/L Calcium (8.4-10.2) mg/dL Magnesium (1.6-2.3) mg/dL Total Bilirubin (0.2-1.3) mg/dL AST (14-36) U/L ALT (4-34) U/L Alkaline Phosphatase (38-126) U/L Troponin I (0.000-0.034) ng/mL Total Protein (6.3-8.2) g/dL Albumin (3.5-5.0) g/dL Lipase (23-300) U/L Urine Color Yellow Urine Appearance Cloudy H (Clear) Urine pH 5.5 (5.0-8.0) Ur Specific [place] 1.013 (1.001-1.035) Urine Protein Trace H (Negative) Urine Glucose (UA) Negative (Negative) Urine Ketones Negative (Negative) Urine Blood Negative (Negative) Urine Nitrite Negative (Negative) Urine Bilirubin Negative (Negative) Urine Urobilinogen <2.0 (<2.0) mg/dL Ur Leukocyte Esterase Small H (Negative) Urine RBC 2 (0-5) /hpf Urine WBC 12 H (0-5) /hpf Urine WBC Clumps Few H (None) /hpf Ur Squamous Epith Cells 5 H (0-4) /hpf Urine Bacteria Rare H (None) /hpf Hyaline Casts 33 H (0-2) /lpf Granular Casts 6 (0) /lpf Urine Mucus Rare H (None) /hpf Coronavirus (PCR) (Not Detectd) 03/31/21 03/31/21 03/31/21 Range/Units 13:57 13:57 13:57 WBC (3.8-10.6) k/uL RBC (3.80-5.40) m/uL Hgb (11.4-16.0) gm/dL Hct (34.0-46.0) % MCV (80.0-100.0) fL MCH (25.0-35.0) pg MCHC (31.0-37.0) g/dL RDW (11.5-15.5) % Plt Count (150-450) k/uL MPV Neutrophils % % Lymphocytes % % Monocytes % % Eosinophils % % Basophils % % Neutrophils # (1.3-7.7) k/uL Lymphocytes # (1.0-4.8) k/uL Monocytes # (0-1.0) k/uL Eosinophils # (0-0.7) k/uL Basophils # (0-0.2) k/uL PT 11.1 (9.0-12.0) sec INR 1.1 (<1.2) APTT 25.6 (22.0-30.0) sec Sodium 134 L (137-145) mmol/L Potassium 3.9 (3.5-5.1) mmol/L Chloride 99 (98-107) mmol/L Carbon Dioxide 23 (22-30) mmol/L Anion Gap 12 mmol/L BUN 32 H (7-17) mg/dL Creatinine 1.51 H (0.52-1.04) mg/dL Est GFR (CKD-EPI)AfAm 39 (>60 ml/min/1.73 sqM) Est GFR (CKD-EPI)NonAf 34 (>60 ml/min/1.73 sqM) Glucose 131 H (74-99) mg/dL Plasma Lactic Acid Jas (0.7-2.0) mmol/L Calcium 9.1 (8.4-10.2) mg/dL Magnesium 2.2 (1.6-2.3) mg/dL Total Bilirubin 0.4 (0.2-1.3) mg/dL AST 62 H (14-36) U/L ALT 52 H (4-34) U/L Alkaline Phosphatase 104 (38-126) U/L Troponin I 0.037 H* (0.000-0.034) ng/mL Total Protein 6.4 (6.3-8.2) g/dL Albumin 3.6 (3.5-5.0) g/dL Lipase 46 (23-300) U/L Urine Color Urine Appearance (Clear) Urine pH (5.0-8.0) Ur Specific [place] (1.001-1.035) Urine Protein (Negative) Urine Glucose (UA) (Negative) Urine Ketones (Negative) Urine Blood (Negative) Urine Nitrite (Negative) Urine Bilirubin (Negative) Urine Urobilinogen (<2.0) mg/dL Ur Leukocyte Esterase (Negative) Urine RBC (0-5) /hpf Urine WBC (0-5) /hpf Urine WBC Clumps (None) /hpf Ur Squamous Epith Cells (0-4) /hpf Urine Bacteria (None) /hpf Hyaline Casts (0-2) /lpf Granular Casts (0) /lpf Urine Mucus (None) /hpf Coronavirus (PCR) (Not Detectd) 03/31/21 Range/Units 14:55 WBC (3.8-10.6) k/uL RBC (3.80-5.40) m/uL Hgb (11.4-16.0) gm/dL Hct (34.0-46.0) % MCV (80.0-100.0) fL MCH (25.0-35.0) pg MCHC (31.0-37.0) g/dL RDW (11.5-15.5) % Plt Count (150-450) k/uL MPV Neutrophils % % Lymphocytes % % Monocytes % % Eosinophils % % Basophils % % Neutrophils # (1.3-7.7) k/uL Lymphocytes # (1.0-4.8) k/uL Monocytes # (0-1.0) k/uL Eosinophils # (0-0.7) k/uL Basophils # (0-0.2) k/uL PT (9.0-12.0) sec INR (<1.2) APTT (22.0-30.0) sec Sodium (137-145) mmol/L Potassium (3.5-5.1) mmol/L Chloride (98-107) mmol/L Carbon Dioxide (22-30) mmol/L Anion Gap mmol/L BUN (7-17) mg/dL Creatinine (0.52-1.04) mg/dL Est GFR (CKD-EPI)AfAm (>60 ml/min/1.73 sqM) Est GFR (CKD-EPI)NonAf (>60 ml/min/1.73 sqM) Glucose (74-99) mg/dL Plasma Lactic Acid Jas (0.7-2.0) mmol/L Calcium (8.4-10.2) mg/dL Magnesium (1.6-2.3) mg/dL Total Bilirubin (0.2-1.3) mg/dL AST (14-36) U/L ALT (4-34) U/L Alkaline Phosphatase (38-126) U/L Troponin I (0.000-0.034) ng/mL Total Protein (6.3-8.2) g/dL Albumin (3.5-5.0) g/dL Lipase (23-300) U/L Urine Color Urine Appearance (Clear) Urine pH (5.0-8.0) Ur Specific [place] (1.001-1.035) Urine Protein (Negative) Urine Glucose (UA) (Negative) Urine Ketones (Negative) Urine Blood (Negative) Urine Nitrite (Negative) Urine Bilirubin (Negative) Urine Urobilinogen (<2.0) mg/dL Ur Leukocyte Esterase (Negative) Urine RBC (0-5) /hpf Urine WBC (0-5) /hpf Urine WBC Clumps (None) /hpf Ur Squamous Epith Cells (0-4) /hpf Urine Bacteria (None) /hpf Hyaline Casts (0-2) /lpf Granular Casts (0) /lpf Urine Mucus (None) /hpf Coronavirus (PCR) Not Detected (Not Detectd) Disposition Clinical Impression: Nausea and vomiting, Weakness, UTI (urinary tract infection), HCAP (healthcare- associated pneumonia) Disposition: ADMITTED IP TO THIS [facility] Condition: Stable Is patient prescribed a controlled substance at d/c from ED?: No Decision to Admit Reason: Admit from EC Decision Date: 03/31/21 Decision Time: 17:03
[2021-03-31 14:16] LABS: Basophils % (A) 0 %; Eosinophils # (A) 0.2 k/uL (0-0.7); Eosinophils % (A) 2 %; HCT 38.3 % (34.0-46.0); HGB 12.1 gm/dL (11.4-16.0); Lymphocytes # (A) 0.6 k/uL (1.0-4.8); Lymphocytes % (A) 6 %; MCH 24.9 pg (25.0-35.0); MCHC 31.5 g/dL (31.0-37.0); MCV 79.1 fL (80.0-100.0); Mean Platelet Volume 6.8; Monocytes # (A) 0.5 k/uL (0-1.0); Monocytes % (A) 4 %; Neutrophils # (A) 9.9 k/uL (1.3-7.7); Neutrophils % (A) 87 %; Platelet Count 449 k/uL (150-450); RBC 4.85 m/uL (3.80-5.40); RDW 14.6 % (11.5-15.5); WBC 11.4 k/uL (3.8-10.6)
[2021-03-31 14:36] LABS: Albumin 3.6 g/dL (3.5-5.0); Calcium 9.1 mg/dL (8.4-10.2); Magnesium 2.2 mg/dL (1.6-2.3); Potassium 3.9 mmol/L (3.5-5.1); Total Bilirubin 0.4 mg/dL (0.2-1.3); Total Protein 6.4 g/dL (6.3-8.2)
[2021-03-31 14:42] LABS: INR 1.1 (<1.2); Partial Thromboplastin Time 25.6 sec (22.0-30.0); Prothrombin Time 11.1 sec (9.0-12.0)
--- NOTE | 2021-03-31 14:48 | XR ---
EXAMINATION TYPE: XR chest 2V DATE OF EXAM: 03/31/2021 COMPARISON: Chest x-ray 03/18/2021 HISTORY: Weakness, abnormal chest x-ray TECHNIQUE: Frontal and lateral views of the chest are obtained. FINDINGS: There is no evident pneumothorax. Bibasilar increased attenuation is present with blunting the costophrenic angles. Heart is obscured. Aorta is dense. Patient shows post atrial appendage clip placement. IMPRESSION: Bibasilar effusions right greater than left. There is likely associated atelectasis vers us edema, correlate to exclude pneumonia.
[2021-03-31 15:40] LABS: Appearance,Urine Cloudy (Clear); Bacteria,Urine Rare /hpf; Bilirubin,Urine Negative (Negative); Blood,Urine Negative (Negative); Color,Urine Yellow; Glucose,Urine (UA) Negative (Negative); Granular Casts,Urine 6 /lpf (0); Hyaline Casts,Urine 33 /lpf (0-2); Ketones,Urine Negative (Negative); Leukocyte Esterase,Urine Small (Negative); Mucus,Urine Rare /hpf; Nitrite,Urine Negative (Negative); PH, Urine 5.5 (5.0-8.0); Protein,Urine Trace (Negative); RBC,Urine 2 /hpf (0-5); Specific Gravity,Urine 1.013 (1.001-1.035); Squamous Epithelial Cell,Urine 5 /hpf (0-4); Urobilinogen,Urine <2.0 mg/dL (<2.0); WBC,Urine 12 /hpf (0-5)
[2021-03-31] MEDS ORDERED: cefTRIAXone IN SWFI 1,000 MG/10 ML SYRINGE IVP STA (16:09)
[2021-03-31] MEDS ORDERED: NALOXONE 0.4 MG/ML 1 ML VIAL IV PRN (17:03)
[2021-03-31] MEDS ORDERED: ONDANSETRON 4 MG/2 ML VIAL IVP PRN (17:03)
[2021-03-31] MEDS ORDERED: ACETAMINOPHEN TAB 325 MG TAB PO PRN ×2 (17:03→17:56)
[2021-03-31] MEDS: ATORVASTATIN 40 MG TAB PO SCH (21:33)
[2021-03-31] MEDS: ALPRAZolam 1 MG TAB PO SCH (21:33)
[2021-03-31] MEDS: APIXABAN 2.5 MG TABLET PO SCH (21:34)
[2021-03-31] MEDS: AMITRIPTYLINE HCL 10 MG TAB PO SCH (21:34)
[2021-03-31] MEDS: MELATONIN 5 MG TABLET PO SCH (21:34)
[2021-04-01] MEDS ORDERED: ASPIRIN 81 MG PO SCH (09:00)
[2021-04-01] MEDS: SERTRALINE 100 MG TAB PO SCH (10:22)
[2021-04-01] MEDS: methIMAzole 5 MG TAB PO SCH (10:22)
[2021-04-01] MEDS: PANTOPRAZOLE 40 MG TABLET PO SCH (10:23)
[2021-04-01] MEDS: CHOLECALCIFEROL 25 MCG (1000 IU) TABLET PO SCH (10:23)
[2021-04-01] MEDS: APIXABAN 2.5 MG TABLET PO SCH ×2 (10:23→21:13)
[2021-04-01] MEDS: METOPROLOL TARTRATE 25 MG TAB PO SCH (10:24)
[2021-04-01] MEDS: LOSARTAN 25 MG TAB PO SCH (10:24)
[2021-04-01] MEDS: AMIODARONE 200 MG TAB PO SCH (10:24)
[2021-04-01] MEDS: buPROPion 75 MG TAB PO SCH (10:25)
[2021-04-01] MEDS ORDERED: SODIUM CHLORIDE 0.9% 1,000 ML IV SCH (11:15)
[2021-04-01 11:22] LABS: Basophils # (A) 0.04 X 10*3/uL (0.00-0.10); Basophils % (A) 0.4 %; Eosinophils # (A) 0.79 X 10*3/uL (0.04-0.35); Eosinophils % (A) 7.5 %; HCT 36.9 % (37.2-46.3); HGB 10.5 g/dL (12.0-15.0); Lymphocytes # (A) 1.68 X 10*3/uL (0.90-5.00); MCH 23.9 pg (27.0-32.0); MCHC 28.5 g/dL (32.0-37.0); MCV 83.9 fL (80.0-97.0); Mean Platelet Volume 9.8 fL (9.5-12.2); Monocytes % (A) 6.7 %; Neutrophils # (A) 7.23 X 10*3/uL (1.80-7.70); Neutrophils % (A) 69.1 %; Platelet Count 532 X 10*3/uL (140-440); RDW 14.9 % (11.5-14.5); WBC 10.47 X 10*3/uL (4.50-10.00)
[2021-04-01] MEDS: ALPRAZolam 1 MG TAB PO SCH ×2 (11:39→21:12)
[2021-04-01 11:46] LABS: African American GFR (CKD) 40.7 (60.0-200.0); Anion Gap 16.8 mmol/L (4.00-12.00); BUN/Creat Ratio 14.86 Ratio (12.00-20.00); Blood Urea Nitrogen 21.7 mg/dL (9.0-27.0); Calcium 8.9 mg/dL (8.7-10.3); Carbon Dioxide 19.8 mmol/L (21.6-31.8); Non-African American GFR(CKD) 35.1 (60.0-200.0); Potassium 3.6 mmol/L (3.5-5.5)
--- NOTE | 2021-04-01 13:49 | P.CRDCN ---
History of Present Illness History of present illness: HISTORY OF PRESENTING ILLNESS This is a pleasant 75-year-old female past medical history significant for coronary artery disease s/p bypass grafting 01/25/2021, NSTEMI, cardiomyopathy , hypertension, dyslipidemia and breast cancer s/p mastectomy, paroxysmal atrial fibrillation. She follows in the office with Dr. Hess. We have been asked to see in consultation for elevated troponin at 0.037. Patient seen and examined at bedside. She presents emergency department with complaints of nausea, vomiting, diarrhea for 24 hours. Non-bloody emesis. States she could not tolerate her morning medications or PO intake and was dry heaving. She denies any chest pain, palpitations, lightheadedness, dizziness, syncope. She denies eating anything abnormal for her. Denies sick contacts. She states she continues to have chronic dyspnea on exertion. She denies abdominal pain. She was admitted 3 times in February 2021 for atrial fibrillation with RVR and admitted for new onset systolic heart failure. Echocardiogram reveals impaired LV systolic function with ejection fraction 30-35%, apical anterior, apical lateral, apical inferior, apical septal and apical hypokinesia noted. At that time she underwent a nuclear stress test that revealed impaired LV systolic function but no reversible ischemia. DIAGNOSTICS Echocardiogram 02/2021 impaired LV systolic function with ejection fraction 30- 35%, apical anterior, apical lateral, apical inferior, apical septal and apical hypokinesia noted. At that time she underwent a nuclear stress test that revealed impaired LV systolic function but no reversible ischemia. EKG on arrival reveals sinus bradycardia, HR 58 left bundle branch block. EKG 2020 appears similar. Chest x-ray reveals bibasilar pleural effusions right greater than left. Laboratory data reviewed, WBC 10.4, hemoglobin 10.5, platelets 532, sodium 139, potassium 3.6, BUN 21.7, creatinine 1.5, troponin 0.037, UA dirty, possible UTI. covid-19 PCR negative Current daily cardiac medications include REVIEW OF SYSTEMS At the time of my exam: CONSTITUTIONAL: Denies fever or chills. CARDIOVASCULAR: +ZUNIGA. Denies palpitations, orthopnea and shortness of breath. Denies chest pain. RESPIRATORY: Denies cough. GASTROINTESTINAL: +nausea, vomiting, diarrhea. Denies abdominal pain, constipation, MUSCULOSKELETAL: Denies myalgias. NEUROLOGIC: Denies numbness, tingling, headache or weakness. ENDOCRINE: Denies fatigue, weight change, polydipsia or polyurina. GENITOURINARY: Denies burning, hematuria or urgency with micturation. HEMATOLOGIC: Denies history of anemia or bleeding. PHYSICAL EXAMINATION Blood pressure 102/47, heart rate 58, afebrile maintaining oxygen saturations on room air CONSTITUTIONAL: No apparent distress. HEENT: Head is normocephalic. Pupils are equal, round. Sclerae anicteric. Mucous membranes of the mouth are moist. No JVD. No carotid bruit. CHEST EXAMINATION: Lungs are clear to auscultation. No chest wall tenderness is noted on palpation or with deep breathing. HEART EXAMINATION: Regular rate and rhythm. S1, S2 heard. No murmurs, gallops or rub. ABDOMEN: Soft, nontender. EXTREMITIES: 2+ peripheral pulses, no lower extremity edema and no calf tenderness. NEUROLOGIC EXAMINATION: Patient is awake, alert and oriented x3. ASSESSMENT Nausea Vomiting Abnormal troponins, chronically elevated, not suggestive of ACS History of breast cancer with mastectomy Coronary artery disease status post bypass grafting January 2021 History of Ischemic cardiomyopathy Chronic systolic heart failure Hypertension Dyslipidemia PLAN -Obtain limited 2D echocardiogram to assess patient's LV function -Check troponin and ProBNP -Discontinue Plavix -Continue Eliquis 2.5mg BID (due to elevated serum creatinine) -Continue patient's home medications amiodarone 200 mg daily, metoprolol tartrate 25 mg daily, losartan 25mg daily -Further recommendations to follow based upon clinical course. Thank you kindly for this consultation. Nurse Practitioner note has been reviewed, I agree with a documented findings and plan of care. Patient was seen and examined. Past Medical History Past Medical History: Coronary Artery Disease (CAD), Cancer, Hyperlipidemia, Hypertension, Memory Impairment, Myocardial Infarction ([place]), Osteoarthritis (OA) Additional Past Medical History / Comment(s): 01/25/21 CABG X3 Last Myocardial Infarction Date:: 01/21/21 History of Any Multi-Drug Resistant Organisms: None Reported Past Surgical History: Appendectomy, Bladder Surgery, Bowel Resection, Breast Surgery, Cholecystectomy, Coronary Bypass/CABG, Hysterectomy, Orthopedic Surgery, Tubal Ligation Additional Past Surgical History / Comment(s): cataractsurgery x2 with lens implants, masectomy on right breast, bowel resection with colostomy and reversal, bladder suspension, left knee replacement, skin cancer removed from right ear Past Anesthesia/Blood Transfusion Reactions: No Reported Reaction Past Psychological History: No Psychological Hx Reported, Depression Smoking Status: Never smoker, Unknown if ever smoked Past Alcohol Use History: None Reported Additional Past Alcohol Use History / Comment(s): pt. quit smoking many years ago, was a pack a day smoker for about 20 years, pt. lives [employer], pts. daughter helps her Past Drug Use History: None Reported Additional Drug Use History / Comment(s): Quit smoking 40 years ago; vaccinated against Covid with [employer] vaccine, last dose June 2020 - Past Family History Father Family Medical History: AFIB, Congestive Heart Failure (CHF) Mother Family Medical History: Cancer Additional Family Medical History / Comment(s): breast cancer with mets Medications and Allergies Home Medications Medication Instructions Recorded Confirmed Type Amitriptyline HCl [Elavil] 20 mg PO HS 01/21/21 03/31/21 History Cholecalciferol [Vitamin D3 (25 50 mcg PO DAILY@0800 01/21/21 03/31/21 History Mcg = 1000 Iu)] Rosuvastatin [Crestor] 20 mg PO HS@2200 01/21/21 03/31/21 History buPROPion [Wellbutrin] 75 mg PO DAILY@0800 01/21/21 03/31/21 History Acetaminophen Tab [Tylenol] 650 mg PO Q4HR PRN tab 01/30/21 03/31/21 Rx Clopidogrel [Plavix] 75 mg PO DAILY tab 01/30/21 03/31/21 Rx Melatonin 5 mg PO HS tablet 01/30/21 03/31/21 Rx Pantoprazole [Protonix] 40 mg PO AC-BRKFST tablet. 01/30/21 03/31/21 Rx methIMAzole [Tapazole] 15 mg PO DAILY tab 01/30/21 03/31/21 Rx Aspirin 81 mg PO DAILY tab 03/08/21 03/31/21 Rx Losartan [Cozaar] 25 mg PO DAILY 30 Days #30 tab 03/08/21 03/31/21 Rx Apixaban [Eliquis] 2.5 mg PO BID #60 tab 03/17/21 03/31/21 Rx Furosemide [Lasix] 40 mg PO DAILY 30 Days #60 tablet 03/17/21 03/31/21 Rx Sertraline [Zoloft] 100 mg PO DAILY@0800 #30 tab 03/17/21 03/31/21 Rx Amiodarone [Cordarone] 200 mg PO DAILY #30 tab 03/19/21 03/31/21 Rx Metoprolol Tartrate [Lopressor] 25 mg PO DAILY #30 tab 03/19/21 03/31/21 Rx ALPRAZolam [Xanax] 1 mg PO BID 03/31/21 03/31/21 History Allergies Allergy/AdvReac Type Severity Reaction Status Date / Time No Known Allergies Allergy Verified 03/19/21 07:41 Physical Exam Vitals: Vital Signs Temp Pulse Pulse Resp BP BP Pulse Ox 04/01/21 08:00 98.0 F 58 L 18 102/47 99 04/01/21 06:48 98 F 66 17 98/41 98 04/01/21 02:00 68 18 96/44 97 03/31/21 17:00 62 17 110/69 97 03/31/21 15:00 60 16 122/88 99 03/31/21 12:36 99 F 64 16 98/58 94 L Intake and Output 03/31/21 04/01/21 04/01/21 22:59 06:59 14:59 Other: Weight 63.503 kg Results 04/01/21 06:57 04/01/21 06:57 Cardiac Enzymes 03/31/21 03/31/21 Range/Units 13:57 13:57 AST 62 H (14-36) U/L Troponin I 0.037 H* (0.000-0.034) ng/mL Coagulation 03/31/21 Range/Units 13:57 PT 11.1 (9.0-12.0) sec APTT 25.6 (22.0-30.0) sec CBC 03/31/21 04/01/21 Range/Units 13:57 06:57 WBC 11.4 H 10.47 H (3.8-10.6) k/uL RBC 4.85 4.40 (3.80-5.40) m/uL Hgb 12.1 10.5 L (11.4-16.0) gm/dL Hct 38.3 36.9 L (34.0-46.0) % Plt Count 449 532 H (150-450) k/uL Comprehensive Metabolic Panel 03/31/21 04/01/21 Range/Units 13:57 06:57 Sodium 134 L 139 (137-145) mmol/L Potassium 3.9 3.6 (3.5-5.1) mmol/L Chloride 99 102 (98-107) mmol/L Carbon Dioxide 23 19.8 L (22-30) mmol/L BUN 32 H 21.7 (7-17) mg/dL Creatinine 1.51 H 1.5 (0.52-1.04) mg/dL Glucose 131 H 115 H (74-99) mg/dL Calcium 9.1 8.9 (8.4-10.2) mg/dL AST 62 H (14-36) U/L ALT 52 H (4-34) U/L Alkaline Phosphatase 104 (38-126) U/L Total Protein 6.4 (6.3-8.2) g/dL Albumin 3.6 (3.5-5.0) g/dL Current Medications Generic Name Dose Route Start Last Admin Trade Name Freq PRN Reason Stop Dose Admin Acetaminophen 650 mg 03/31/21 17:03 Acetaminophen Tab 325 Mg Tab PO Q6HR PRN Mild Pain or Fever > 100.5 Alprazolam 1 mg 03/31/21 21:00 04/01/21 11:39 Alprazolam 1 Mg Tab PO 1 mg BID JAZ Administration Amiodarone HCl 200 mg 04/01/21 09:00 04/01/21 10:24 Amiodarone 200 Mg Tab PO 200 mg DAILY JAZ Administration Amitriptyline HCl 20 mg 03/31/21 21:00 03/31/21 21:34 Amitriptyline Hcl 10 Mg Tab PO 20 mg HS JAZ Administration Apixaban 2.5 mg 03/31/21 21:00 04/01/21 10:23 Apixaban 2.5 Mg Tablet PO 2.5 mg BID JAZ Administration Protocol Aspirin 81 mg 04/01/21 09:00 04/01/21 10:24 Aspirin 81 Mg PO 81 mg DAILY JAZ Administration Atorvastatin Calcium 40 mg 03/31/21 22:00 03/31/21 21:33 Atorvastatin 40 Mg Tab PO 40 mg HS@2200 JAZ Administration Bupropion HCl 75 mg 04/01/21 08:00 04/01/21 10:25 Bupropion 75 Mg Tab PO 75 mg DAILY@0800 JAZ Administration Cholecalciferol 50 mcg 04/01/21 08:00 04/01/21 10:23 Cholecalciferol 25 Mcg (1000 Iu) Tablet PO 50 mcg DAILY@0800 JAZ Administration Sodium Chloride 1,000 mls @ 50 mls/hr 03/31/21 16:53 03/31/21 18:49 Saline 0.9% IV 04/01/21 12:52 50 mls/hr .Q20H STA Administration Ceftriaxone Sodium 1 gm/ 50 mls @ 100 mls/hr 04/01/21 11:45 Sodium Chloride IVPB Q24HR JAZ Losartan Potassium 25 mg 04/01/21 09:00 04/01/21 10:24 Losartan 25 Mg Tab PO 25 mg DAILY JAZ Administration Melatonin 5 mg 03/31/21 21:00 03/31/21 21:34 Melatonin 5 Mg Tablet PO 5 mg HS JAZ Administration Methimazole 15 mg 04/01/21 09:00 04/01/21 10:22 Methimazole 5 Mg Tab PO 15 mg DAILY JAZ Administration Metoprolol Tartrate 25 mg 04/01/21 09:00 04/01/21 10:24 Metoprolol Tartrate 25 Mg Tab PO 25 mg DAILY JAZ Administration Naloxone HCl 0.2 mg 03/31/21 17:03 Naloxone 0.4 Mg/Ml 1 Ml Vial IV Q2M PRN Opioid Reversal Ondansetron HCl 4 mg 03/31/21 17:03 Ondansetron 4 Mg/2 Ml Vial IVP Q8HR PRN Nausea And Vomiting Pantoprazole Sodium 40 mg 04/01/21 07:30 04/01/21 10:23 Pantoprazole 40 Mg Tablet PO 40 mg AC-BRKFST JAZ Administration Sertraline HCl 100 mg 04/01/21 08:00 04/01/21 10:22 Sertraline 100 Mg Tab PO 100 mg DAILY@0800 JAZ Administration Intake and Output 03/31/21 04/01/21 04/01/21 22:59 06:59 14:59 Other: Weight 63.503 kg Patient Weight 04/02/21 06:59 Weight 63.503 kg 04/01/21 06:57 04/01/21 06:57
--- NOTE | 2021-04-01 17:13 | P.HPIM ---
History of Present Illness H&P Date: 04/01/21 Chief Complaint: Nausea vomiting Patient is a 76-year-old male with a known history of coronary artery disease, history of CABG triple-vessel on 01/25/2021, hypertension, chronic CHF with ejection fraction 30-35%, hyperlipidemia, memory impairment, history of [place], osteoarthritis and history of breast surgery/cancer and history of bowel resection with colostomy and reversal, osteoarthritis/, skin cancer removed from the right ear presents to ER with the complaints of nausea and vomiting. Patient says that she has been having symptoms and night prior to the admission. Patient had multiple episodes of emesis up to 18 times as per the patient. Patient was also having diarrhea. Denied any unusual food intake. Denied any recent antibiotic use. Patient was also having generalized abdominal discomfort with concentrated itching. Otherwise patient denied any cough is from production. No fever no chills. No dysuria or hematuria. No chest pain. Patient does have shortness of breath. Chest x-ray showed bibasilar effusions right greater than left. There is likely associated atelectasis versus edema. Correlate to exclude pneumonia. EKG showed sinus bradycardia. Laboratory data showed WBC 11.4 hemoglobin 12.1, MCV 79.1, platelets 449 Sodium 134 potassium 3.9 chloride 99 bicarb is 23 BUN 32 and creatinine 1.51 Troponin 0.037, 0.0-9 ProBNP 2060 Urinalysis showed cloudy with trace protein and small leukocyte esterase. : 19 PCR not detected Review of Systems Constitutional: Patient denies any fever or chills . No generalized weakness or weight loss. Abdomen: Patient denied nausea vomiting and diarrhea and abdominal pain. Cardiovascular: Patient denies any chest pain or short of breath no palpitations. Respiratory: patient denied any cough is from production. No shortness of breath Neurologic: Patient denied any numbness or tingling headache. Musculoskeletal: Patient denies any complaints of joint swelling or deformity. Skin: Negative Psychiatric: Negative Endocrine: No heat or cold intolerance. No recent weight gain. Genitourinary: No dysuria or hematuria. All other 14 point ROS negative except the above Past Medical History Past Medical History: Coronary Artery Disease (CAD), Cancer, Hyperlipidemia, Hypertension, Memory Impairment, Myocardial Infarction ([place]), Osteoarthritis (OA) Additional Past Medical History / Comment(s): 01/25/21 CABG X3 Last Myocardial Infarction Date:: 01/21/21 History of Any Multi-Drug Resistant Organisms: None Reported Past Surgical History: Appendectomy, Bladder Surgery, Bowel Resection, Breast Surgery, Cholecystectomy, Coronary Bypass/CABG, Hysterectomy, Orthopedic Surgery, Tubal Ligation Additional Past Surgical History / Comment(s): cataractsurgery x2 with lens implants, masectomy on right breast, bowel resection with colostomy and reversal, bladder suspension, left knee replacement, skin cancer removed from right ear Past Anesthesia/Blood Transfusion Reactions: No Reported Reaction Past Psychological History: No Psychological Hx Reported, Depression Smoking Status: Never smoker, Unknown if ever smoked Past Alcohol Use History: None Reported Additional Past Alcohol Use History / Comment(s): pt. quit smoking many years ago, was a pack a day smoker for about 20 years, [place]. [place] [employer], pts. daughter helps her Past Drug Use History: None Reported Additional Drug Use History / Comment(s): Quit smoking 40 years ago; vaccinated against Covid with [employer] vaccine, last dose June 2020 - Past Family History Father Family Medical History: AFIB, Congestive Heart Failure (CHF) Mother Family Medical History: Cancer Additional Family Medical History / Comment(s): breast cancer with mets Medications and Allergies Home Medications Medication Instructions Recorded Confirmed Type Amitriptyline HCl [Elavil] 20 mg PO HS 01/21/21 03/31/21 History Cholecalciferol [Vitamin D3 (25 50 mcg PO DAILY@0800 01/21/21 03/31/21 History Mcg = 1000 Iu)] Rosuvastatin [Crestor] 20 mg PO HS@2200 01/21/21 03/31/21 History buPROPion [Wellbutrin] 75 mg PO DAILY@0800 01/21/21 03/31/21 History Acetaminophen Tab [Tylenol] 650 mg PO Q4HR PRN tab 01/30/21 03/31/21 Rx Clopidogrel [Plavix] 75 mg PO DAILY tab 01/30/21 03/31/21 Rx Melatonin 5 mg PO HS tablet 01/30/21 03/31/21 Rx Pantoprazole [Protonix] 40 mg PO AC-BRKFST tablet. 01/30/21 03/31/21 Rx methIMAzole [Tapazole] 15 mg PO DAILY tab 01/30/21 03/31/21 Rx Aspirin 81 mg PO DAILY tab 03/08/21 03/31/21 Rx Losartan [Cozaar] 25 mg PO DAILY 30 Days #30 tab 03/08/21 03/31/21 Rx Apixaban [Eliquis] 2.5 mg PO BID #60 tab 03/17/21 03/31/21 Rx Furosemide [Lasix] 40 mg PO DAILY 30 Days #60 tablet 03/17/21 03/31/21 Rx Sertraline [Zoloft] 100 mg PO DAILY@0800 #30 tab 03/17/21 03/31/21 Rx Amiodarone [Cordarone] 200 mg PO DAILY #30 tab 03/19/21 03/31/21 Rx Metoprolol Tartrate [Lopressor] 25 mg PO DAILY #30 tab 03/19/21 03/31/21 Rx ALPRAZolam [Xanax] 1 mg PO BID 03/31/21 03/31/21 History Allergies Allergy/AdvReac Type Severity Reaction Status Date / Time No Known Allergies Allergy Verified 03/19/21 07:41 Physical Exam Vitals: Vital Signs Temp Pulse Pulse Resp BP BP Pulse Ox 04/01/21 08:00 98.0 F 58 L 18 102/47 99 04/01/21 06:48 98 F 66 17 98/41 98 04/01/21 02:00 68 18 96/44 97 03/31/21 17:00 62 17 110/69 97 03/31/21 15:00 60 16 122/88 99 03/31/21 12:36 99 F 64 16 98/58 94 L Intake and Output 03/31/21 04/01/21 04/01/21 22:59 06:59 14:59 Other: Weight 63.503 kg PHYSICAL EXAMINATION: Patient is lying in the bed comfortably, no acute distress, awake alert and oriented.. HEENT: Normocephalic. Neck is supple. Pupils reactive. Nostrils clear. Oral cavity is moist. Neck reveals no JVD, carotid bruits, or thyromegaly. CHEST EXAMINATION: Trachea is central. Symmetrical expansion. Right basilar diminished sounds. Bilateral minimal crackles. No wheezing. Otherwise Lung hanson clear to auscultation and percussion. CARDIAC: Normal S1, S2 with no gallops. No murmurs ABDOMEN: Soft. Bowel sounds normal. No organomegaly. No abdominal bruits. Extremities: reveal no edema. No clubbing or cyanosis Neurologically awake, alert, oriented x3 with well-coordinated movements. No focal deficits noted Skin: No rash or skin lesions. Psychiatric: Coperative. Nonsuicidal Musculoskeletal: No joint swelling or deformity. Normal range of motion. Results CBC & Chem 7: 04/02/21 05:32 04/02/21 05:32 Labs: Abnormal Lab Results - Last 24 Hours (Table) 03/31/21 03/31/21 03/31/21 Range/Units 13:57 13:57 13:57 WBC 11.4 H (3.8-10.6) k/uL Hgb (12.0-15.0) g/dL Hct (37.2-46.3) % MCV 79.1 L (80.0-100.0) fL MCH 24.9 L (25.0-35.0) pg MCHC (32.0-37.0) g/dL RDW (11.5-14.5) % Plt Count (140-440) X 10*3/uL Neutrophils # 9.9 H (1.3-7.7) k/uL Lymphocytes # 0.6 L (1.0-4.8) k/uL Eosinophils # (0.04-0.35) X 10*3/uL Sodium 134 L (137-145) mmol/L BUN 32 H (7-17) mg/dL Creatinine 1.51 H (0.52-1.04) mg/dL Glucose 131 H (74-99) mg/dL AST 62 H (14-36) U/L ALT 52 H (4-34) U/L Troponin I (0.000-0.034) ng/mL Urine Appearance Cloudy H (Clear) Urine Protein Trace H (Negative) Ur Leukocyte Esterase Small H (Negative) Urine WBC 12 H (0-5) /hpf Urine WBC Clumps Few H (None) /hpf Ur Squamous Epith Cells 5 H (0-4) /hpf Urine Bacteria Rare H (None) /hpf Hyaline Casts 33 H (0-2) /lpf Urine Mucus Rare H (None) /hpf 03/31/21 04/01/21 Range/Units 13:57 06:57 WBC 10.47 H (3.8-10.6) k/uL Hgb 10.5 L (12.0-15.0) g/dL Hct 36.9 L (37.2-46.3) % MCV (80.0-100.0) fL MCH 23.9 L (25.0-35.0) pg MCHC 28.5 L (32.0-37.0) g/dL RDW 14.9 H (11.5-14.5) % Plt Count 532 H (140-440) X 10*3/uL Neutrophils # (1.3-7.7) k/uL Lymphocytes # (1.0-4.8) k/uL Eosinophils # 0.79 H (0.04-0.35) X 10*3/uL Sodium (137-145) mmol/L BUN (7-17) mg/dL Creatinine (0.52-1.04) mg/dL Glucose (74-99) mg/dL AST (14-36) U/L ALT (4-34) U/L Troponin I 0.037 H* (0.000-0.034) ng/mL Urine Appearance (Clear) Urine Protein (Negative) Ur Leukocyte Esterase (Negative) Urine WBC (0-5) /hpf Urine WBC Clumps (None) /hpf Ur Squamous Epith Cells (0-4) /hpf Urine Bacteria (None) /hpf Hyaline Casts (0-2) /lpf Urine Mucus (None) /hpf Microbiology - Last 24 Hours (Table) 03/31/21 13:57 Urine Culture - Preliminary Urine,Voided Thrombosis Risk Factor Assmnt - DVT/VTE Prophylaxis DVT/VTE Prophylaxis: Pharmacologic Prophylaxis ordered - Choose All That Apply Each Risk Factor Represents 2 Points: Age 61-74 years, Major surgery Thrombosis Risk Factor Assessment Total Risk Factor Score: 4 Thrombosis Risk Factor Assessment Level: Moderate Risk Assessment and Plan Assessment: Nausea vomiting and diarrhea. Possible acute viral gastroenteritis. Mild acute on chronic CHF with systolic dysfunction with ejection fraction 30- 35% on face echocardiogram Bibasilar pleural effusion. Mildly elevated troponin level. Unlikely ACS. Trending down. Acute kidney injury Possible urinary tract infection Coronary artery disease history of CABG in January 2021 3 vessel Paroxysmal AtrialfibrillationonanticoagulationwithEliquis Ischemic cardiomyopathy Hypertension Hyperlipidemia Memory impairment Osteoarthritis Hyperthyroidism History of bowel resection with colostomy and reversal DVT prophylaxis. On Eliquis now Plan: Patient was continued on gentle IV hydration and symptomatic management for nausea and vomiting. Patient was started back on her diet and IV fluids will be discontinued. Continue with Eliquis, metoprolol and losartan. Telemetry monitoring. Follow-up urine culture report and continue ceftriaxone for now. Current home medications and follow up closely. Cardiology is on board. Prognosis is guarded with multiple medical problems and comorbid conditions. Time with Patient: Greater than 30
[2021-04-01] MEDS: AMITRIPTYLINE HCL 10 MG TAB PO SCH (21:12)
[2021-04-01] MEDS: MELATONIN 5 MG TABLET PO SCH (21:13)
[2021-04-01] MEDS: ATORVASTATIN 40 MG TAB PO SCH (21:13)
[2021-04-02 07:21] LABS: Basophils % (A) 0 %; Eosinophils # (A) 0.4 k/uL (0-0.7); Eosinophils % (A) 6 %; HCT 33.6 % (34.0-46.0); HGB 10.3 gm/dL (11.4-16.0); Hypochromasia Moderate; Lymphocytes # (A) 0.6 k/uL (1.0-4.8); Lymphocytes % (A) 10 %; MCHC 30.5 g/dL (31.0-37.0); Mean Platelet Volume 7.1; Monocytes # (A) 0.3 k/uL (0-1.0); Monocytes % (A) 5 %; Neutrophils # (A) 4.8 k/uL (1.3-7.7); Neutrophils % (A) 76 %; Platelet Count 374 k/uL (150-450); RDW 14.7 % (11.5-15.5); WBC 6.3 k/uL (3.8-10.6)
[2021-04-02 07:28] LABS: African American GFR (CKD) 48 (>60 ml/min/1.73 sqM); Anion Gap 7 mmol/L; Blood Urea Nitrogen 16 mg/dL (7-17); Calcium 8.8 mg/dL (8.4-10.2); Carbon Dioxide 24 mmol/L (22-30); Chloride 105 mmol/L (98-107); Glucose 125 mg/dL (74-99); Non-African American GFR(CKD) 42 (>60 ml/min/1.73 sqM); Potassium 3.8 mmol/L (3.5-5.1); Sodium 136 mmol/L (137-145)
--- NOTE | 2021-04-02 08:00 | ECHOF ---
Referral Reason:LV function MEASUREMENTS -------- HEIGHT: 149.9 cm WEIGHT: 63.5 kg BP: 102/47 RVIDd: 3.0 cm (< 3.3) RAP: 5.00 mmHg RVSP: 29.29 mmHg FINDINGS -------- Sinus rhythm. Limited Study The left ventricular size is normal. Overall left ventricular systolic function is mild-moderately impaired with, an EF between 40 - 45 %. Anterseptal Hypokinesis Mild tricuspid regurgitation present. Right ventricular systolic pressure is normal at < 35 mmHg. There is no pericardial effusion. Pleural Effusion with Fibrin. CONCLUSIONS -------- 1. Limited Study 2. The left ventricular size is normal. 3. Overall left ventricular systolic function is mild-moderately impaired with, an EF between 40 - 45 %. 4. Anterseptal Hypokinesis 5. Mild tricuspid regurgitation present. 6. There is no pericardial effusion. 7. Pleural Effusion with Fibrin. STERILE TECH: SAHVON Ch
[2021-04-02] MEDS: ALPRAZolam 1 MG TAB PO SCH (09:20)
[2021-04-02] MEDS: METOPROLOL TARTRATE 25 MG TAB PO SCH (09:21)
[2021-04-02] MEDS: PANTOPRAZOLE 40 MG TABLET PO SCH (09:21)
[2021-04-02] MEDS: SERTRALINE 100 MG TAB PO SCH (09:21)
[2021-04-02] MEDS: buPROPion 75 MG TAB PO SCH (09:21)
[2021-04-02] MEDS: LOSARTAN 25 MG TAB PO SCH (09:21)
[2021-04-02] MEDS: APIXABAN 2.5 MG TABLET PO SCH (09:21)
[2021-04-02] MEDS: CHOLECALCIFEROL 25 MCG (1000 IU) TABLET PO SCH (09:21)
[2021-04-02] MEDS: AMIODARONE 200 MG TAB PO SCH (09:22)
[2021-04-02] MEDS: methIMAzole 5 MG TAB PO SCH (09:22)
--- NOTE | 2021-04-02 11:12 | P.PN ---
Subjective This is a pleasant 75-year-old female past medical history significant for coronary artery disease s/p bypass grafting 01/25/2021, NSTEMI, ca rdiomyopathy, hypertension, dyslipidemia and breast cancer s/p mastectomy, paroxysmal atrial fibrillation. She follows in the office with Dr. Hess. We have been asked to see in consultation for elevated troponin at 0.037. Patient seen and examined at bedside. She presents emergency department with complaints of nausea, vomiting, diarrhea for 24 hours. Non-bloody emesis. States she could not tolerate her morning medications or PO intake and was dry heaving. She denies any chest pain, palpitations, lightheadedness, dizziness, syncope. She denies eating anything abnormal for her. Denies sick contacts. She states she continues to have chronic dyspnea on exertion. She denies abdominal pain. She was admitted 3 times in February 2021 for atrial fibrillation with RVR and admitted for new onset systolic heart failure. Echocardiogram reveals impaired LV systolic function with ejection fraction 30-35%, apical anterior, apical lateral, apical inferior, apical septal and apical hypokinesia noted. At that time she underwent a nuclear stress test that revealed impaired LV systolic function but no reversible ischemia. 04/02/21: Patient seen and examined at bedside, no acute distress. She denies any further nausea, vomiting, diarrhea. Laboratory data reviewed second troponin negative. Limited echo completed with improvement and EF of 4045 percent, mild tricuspid regurgitation, anteroseptal hypokinesis, pleural effusion. Laboratory data review WBC 6.3, hemoglobin 10.3, platelets 374, sodium 136, potassium 3.8, BUN 16, serum creatinine 1.2, proBNP 2060. PHYSICAL EXAMINATION Blood pressure 107/62, heart rate 70, afebrile, maintaining saturations on room air CONSTITUTIONAL: No apparent distress. HEENT: Neck Supple. No JVD. CHEST EXAMINATION: Lungs are clear to auscultation. No chest wall tenderness is noted on palpation or with deep breathing. HEART EXAMINATION: Regular rate and rhythm. S1, S2 heard. No murmurs, gallops or rub. ABDOMEN: Soft, nontender. EXTREMITIES: 2+ peripheral pulses, no lower extremity edema and no calf tenderness. NEUROLOGIC EXAMINATION: Patient is awake, alert and oriented x3. ASSESSMENT Nausea Vomiting Abnormal troponins, chronically elevated, not suggestive of ACS History of breast cancer with mastectomy Coronary artery disease status post bypass grafting January 2021 History of Ischemic cardiomyopathy Chronic systolic heart failure Hypertension Dyslipidemia Paroxysmal atrial fibrillation, on Eliquis, currently maintaining sinus mechanism. PLAN -From a cardiology perspective, no further cardiac testing or changes at this time. Limited echo completed with improvement in EF, repeat troponin negative. -Discontinue Plavix -Continue Eliquis 2.5mg BID (due to elevated serum creatinine) -Continue patient's home medications amiodarone 200 mg daily, metoprolol tartrate 25 mg daily, losartan 25mg daily -We will follow the patient as needed. Please reach out with further questions or concerns. -Follow up with Dr. Hess with her normal scheduled appointment. Thank you kindly for this consultation. Nurse Practitioner note has been reviewed, I agree with a documented findings and plan of care. Patient was seen and examined. Objective - Vital Signs Vital signs: Vital Signs Temp 98.4 F 04/02/21 07:00 Pulse 78 04/02/21 07:00 Resp 16 04/02/21 07:00 BP 107/62 04/02/21 07:00 Pulse Ox 96 04/02/21 07:00 Intake & Output 04/01/21 04/02/21 04/02/21 18:59 06:59 18:59 Intake Total 120 200 240 Balance 120 200 240 Weight 63.503 kg Intake: Intake, IV Titration 200 Amount cefTRIAXone 1 gm In 200 Sodium Chloride 0.9% 50 ml @ 100 mls/hr IVPB Q24HR [facility] Rx#:[id number] Oral 120 240 Other: Voiding Method Toilet # Voids 2 1 # Bowel Movements 0 - Labs CBC & Chem 7: 04/02/21 05:32 04/02/21 05:32 Labs: Abnormal Lab Results - Last 24 Hours (Table) 04/01/21 04/01/21 04/02/21 Range/Units 06:57 06:57 05:32 WBC 10.47 H (4.50-10.00) X 10*3/uL Hgb 10.5 L 10.3 L (12.0-15.0) g/dL Hct 36.9 L 33.6 L (37.2-46.3) % MCH 23.9 L (27.0-32.0) pg MCHC 28.5 L 30.5 L (32.0-37.0) g/dL RDW 14.9 H (11.5-14.5) % Plt Count 532 H (140-440) X 10*3/uL Lymphocytes # 0.6 L (1.0-4.8) k/uL Eosinophils # 0.79 H (0.04-0.35) X 10*3/uL Sodium (137-145) mmol/L Carbon Dioxide 19.8 L (21.6-31.8) mmol/L Anion Gap 16.80 H (4.00-12.00) mmol/L Creatinine (0.52-1.04) mg/dL Est GFR (CKD-EPI)AfAm 40.7 L (60.0-200.0) Est GFR (CKD-EPI)NonAf 35.1 L (60.0-200.0) Glucose 115 H (70-110) mg/dL 04/02/21 Range/Units 05:32 WBC (4.50-10.00) X 10*3/uL Hgb (12.0-15.0) g/dL Hct (37.2-46.3) % MCH (27.0-32.0) pg MCHC (32.0-37.0) g/dL RDW (11.5-14.5) % Plt Count (140-440) X 10*3/uL Lymphocytes # (1.0-4.8) k/uL Eosinophils # (0.04-0.35) X 10*3/uL Sodium 136 L (137-145) mmol/L Carbon Dioxide (21.6-31.8) mmol/L Anion Gap (4.00-12.00) mmol/L Creatinine 1.28 H (0.52-1.04) mg/dL Est GFR (CKD-EPI)AfAm (60.0-200.0) Est GFR (CKD-EPI)NonAf (60.0-200.0) Glucose 125 H (70-110) mg/dL Microbiology - Last 24 Hours (Table) 03/31/21 13:57 Urine Culture - Final Urine,Voided
[2021-04-02 14:28] VITALS: BP 133/70; PULSE 62; RESP 18; TEMP 98.5
--- NOTE | 2021-04-08 14:05 | P.DS ---
Providers Date of admission: 03/31/21 17:03 Expected date of discharge: 04/05/21 Attending physician: Rik Ortiz Consults: 04/01/21 10:57 Consult Physician Routine Consulting Provider: Estuardo White Consult Reason/Comments: recent cabg, elevated trops Do you want consulting provider notified?: Yes Primary care physician: Brian Foster [facility] Course: Final diagnosis Nausea vomiting and diarrhea. Possible acute viral gastroenteritis. Mild acute on chronic CHF with systolic dysfunction with ejection fraction 30- 35% on face echocardiogram Bibasilar pleural effusion. Mildly elevated troponin level. Unlikely ACS. Trending down. Acute kidney injury Possible urinary tract infection Coronary artery disease history of CABG in January 2021 3 vessel Paroxysmal Atrial fibrillation on anticoagulation with Eliquis Ischemic cardiomyopathy Hypertension Hyperlipidemia Memory impairment Osteoarthritis Hyperthyroidism History of bowel resection with colostomy and reversal DVT prophylaxis Discharge disposition Patient is being discharged in a stable condition with guarded prognosis to home. Patient will follow-up with Dr. Foster upon discharge. Patient will con tinue with [facility] upon discharge and instructed to follow-up with cardiology outpatient. Patient also instructed to continue with low-sodium diet. Total time taken is 35 minutes. Hospital course Patient is a 76-year-old male with a known history of coronary artery disease, history of CABG triple-vessel on 01/25/2021, hypertension, chronic CHF with ejection fraction 30-35%, hyperlipidemia, memory impairment, history of IL, osteoarthritis and history of breast surgery/cancer and history of bowel resection with colostomy and reversal, osteoarthritis/, skin cancer removed from the right ear presents to ER with the complaints of nausea and vomiting. Patient says that she has been having symptoms and night prior to the admission. Patient had multiple episodes of emesis up to 18 times as per the patient. Patient was also having diarrhea. Denied any unusual food intake. Denied any recent antibiotic use. Patient was also having generalized abdominal discomfort with concentrated itching. Otherwise patient denied any cough is from production. No fever no chills. No dysuria or hematuria. No chest pain. Patient does have shortness of breath. Chest x-ray showed bibasilar effusions right greater than left. There is likely associated atelectasis versus edema. Correlate to exclude pneumonia. EKG showed sinus bradycardia. Laboratory data showed WBC 11.4 hemoglobin 12.1, MCV 79.1, platelets 449 Sodium 134 potassium 3.9 chloride 99 bicarb is 23 BUN 32 and creatinine 1.51 Troponin 0.037, 0.0-9 ProBNP 2059 Urinalysis showed cloudy with trace protein and small leukocyte esterase. : 19 PCR not detected 04/02/2021 Patient is seen in follow-up with no acute overnight issues noted. Patient has been cleared by cardiology recommending continuing current medications and close outpatient follow-up. Patient will continue on oral Ceftin 500 mg twice daily for the next 3 days to complete the course. Patient also encouraged to have repeat labs of CBC and BMP in the outpatient setting. Patient is adamant about going home today states she is tolerating diet and is ready for discharge. Currently no reports of chest pain, shortness of breath, or palpitations. Patient is afebrile. No reports of nausea or vomiting and patient is tolerating diet. She will be discharged home today. Guarded prognosis. On exam vital signs are stable. Cardio S1, S2 are muffled. Respiratory shows diminished breath sounds at the bases with no wheezing or rhonchi noted. Abdomen is soft and nontender. Nervous system shows no focal deficits. Please refer to medication reconciliation sheet for a list of medications. Patient Condition at Discharge: Stable Plan - Discharge Summary Discharge Rx Participant: No New Discharge Prescriptions: New Cefuroxime Axetil [Ceftin] 500 mg PO BID 3 Days #6 tab Continue Rosuvastatin [Crestor] 20 mg PO HS buPROPion [Wellbutrin] 75 mg PO DAILY Amitriptyline HCl [Elavil] 20 mg PO HS Cholecalciferol [Vitamin D3 (25 Mcg = 1000 Iu)] 50 mcg PO DAILY methIMAzole [Tapazole] 15 mg PO DAILY tab Acetaminophen Tab [Tylenol] 650 mg PO Q4HR PRN tab PRN Reason: Fever And/ Or Pain Losartan [Cozaar] 25 mg PO DAILY 30 Days #30 tab Apixaban [Eliquis] 2.5 mg PO BID #60 tab Metoprolol Tartrate [Lopressor] 25 mg PO DAILY #30 tab ALPRAZolam [Xanax] 1 mg PO BID Amiodarone [Cordarone] 200 mg PO DAILY #30 tab Discontinued Clopidogrel [Plavix] 75 mg PO DAILY tab Aspirin 81 mg PO DAILY tab Furosemide [Lasix] 40 mg PO DAILY 30 Days #60 tablet No Action lisinopriL [Zestril] 5 mg PO DAILY Melatonin 5 mg PO HS PRN PRN Reason: Insomnia Sertraline [Zoloft] 100 mg PO DAILY Discharge Medication List Amitriptyline HCl [Elavil] 20 mg PO HS 01/21/21 [History] Cholecalciferol [Vitamin D3 (25 Mcg = 1000 Iu)] 50 mcg PO DAILY 01/21/21 [History] Rosuvastatin [Crestor] 20 mg PO HS 01/21/21 [History] buPROPion [Wellbutrin] 75 mg PO DAILY 01/21/21 [History] Acetaminophen Tab [Tylenol] 650 mg PO Q4HR PRN tab 01/30/21 [Rx] methIMAzole [Tapazole] 15 mg PO DAILY tab 01/30/21 [Rx] Losartan [Cozaar] 25 mg PO DAILY 30 Days #30 tab 03/08/21 [Rx] Apixaban [Eliquis] 2.5 mg PO BID #60 tab 03/17/21 [Rx] Amiodarone [Cordarone] 200 mg PO DAILY #30 tab 03/19/21 [Rx] Metoprolol Tartrate [Lopressor] 25 mg PO DAILY #30 tab 03/19/21 [Rx] ALPRAZolam [Xanax] 1 mg PO BID 03/31/21 [History] Cefuroxime Axetil [Ceftin] 500 mg PO BID 3 Days #6 tab 04/02/21 [Rx] Melatonin 5 mg PO HS PRN 04/05/21 [History] Sertraline [Zoloft] 100 mg PO DAILY 04/05/21 [History] lisinopriL [Zestril] 5 mg PO DAILY 04/05/21 [History] Follow up Appointment(s)/Referral(s): Brian Hess MD [STAFF PHYSICIAN] - 04/09/21 11:00 am Brian Foster DO [Primary Care Provider] - 04/04/21 12:45 pm Ambulatory/Diagnostic Orders: Complete Blood Count w/diff [LAB.AMB] Time Frame: 2 Days, Location: None Selected Patient Instructions/Handouts: Acute Nausea and Vomiting (DC) Activity/Diet/Wound Care/Special Instructions: Activity Limited until follow-up Continue taking medications as prescribed Follow-up cardiology outpatient as discussed Follow-up primary care provider on discharge Recommend repeat labs in 2-3 days Slowly increase diet as tolerated and continue bland diet and advance Discharge Disposition: HOME SELF-CARE
== END 2021-04-02 17:35 | disposition home or self-care (01) ==
LOC: EC 12:12 → 6NMEDSUR 17:03
PROVIDERS: ADMIT Hospitalist; ATTEND Hospitalist
DX: R11.2 Nausea with vomiting, unspecified (principal); R79.89 Other specified abnormal findings of blood chemistry; I11.0 Hypertensive heart disease with heart failure; I50.23 Acute on chronic systolic (congestive) heart failure; I25.10 Atherosclerotic heart disease of native coronary artery without angina pectoris; N17.9 Acute kidney failure, unspecified; I25.5 Ischemic cardiomyopathy; I48.0 Paroxysmal atrial fibrillation; E78.5 Hyperlipidemia, unspecified; R19.7 Diarrhea, unspecified; I07.1 Rheumatic tricuspid insufficiency; I25.2 Old myocardial infarction; M19.90 Unspecified osteoarthritis, unspecified site; F32.9 Major depressive disorder, single episode, unspecified; R53.1 Weakness; E05.90 Thyrotoxicosis, unspecified without thyrotoxic crisis or storm; R41.3 Other amnesia; I44.7 Left bundle-branch block, unspecified; R00.1 Bradycardia, unspecified; Z20.822 Contact with and (suspected) exposure to COVID-19; Z79.02 Long term (current) use of antithrombotics/antiplatelets; Z79.82 Long term (current) use of aspirin; Z79.01 Long term (current) use of anticoagulants; Z79.899 Other long term (current) drug therapy; Z85.3 Personal history of malignant neoplasm of breast; Z95.1 Presence of aortocoronary bypass graft; Z85.828 Personal history of other malignant neoplasm of skin; Z90.10 Acquired absence of unspecified breast and nipple; Z90.710 Acquired absence of both cervix and uterus; Z90.49 Acquired absence of other specified parts of digestive tract; Z98.51 Tubal ligation status; Z98.49 Cataract extraction status, unspecified eye; Z96.1 Presence of intraocular lens; Z87.891 Personal history of nicotine dependence; Z96.652 Presence of left artificial knee joint; Z82.49 Family history of ischemic heart disease and other diseases of the circulatory system; Z80.3 Family history of malignant neoplasm of breast
CPT/HCPCS: 96365; 96376; 96361; 96375; 99285; 36415; 93005; 93308; 83880; 80053; 80048; 83605; 83690; 83735; 84484 ×2; 85025 ×2; 85610; 85730; 81001; 87086; 87635; 71046; G0378 ×3; J2405; J0696 ×3; 96366

== ENCOUNTER 2021-04-04 19:50 | Inpatient (IN) | payer MEDICARE ==
--- NOTE | 2021-04-04 23:53 | XR ---
EXAMINATION TYPE: XR chest 2V DATE OF EXAM: 04/04/2021 COMPARISON: 03/31/2021 INDICATION: Pleural effusion TECHNIQUE: Frontal and lateral views of the chest are obtained. FINDINGS: The heart size is indistinct. The pulmonary vasculature is normal. There is a moderate right pleural effusion. Small left pleural effusion is present. Pleural effusions were present previously.. IMPRESSION: 1. Moderate right and small left pleural effusions, stable
[2021-04-05 00:36] LABS: Basophils % (A) 1 %; Eosinophils # (A) 0.3 k/uL (0-0.7); Eosinophils % (A) 4 %; HCT 36.8 % (34.0-46.0); HGB 11.7 gm/dL (11.4-16.0); Lymphocytes # (A) 1.1 k/uL (1.0-4.8); Lymphocytes % (A) 16 %; MCH 25.3 pg (25.0-35.0); MCHC 31.8 g/dL (31.0-37.0); MCV 79.5 fL (80.0-100.0); Mean Platelet Volume 7.1; Monocytes # (A) 0.4 k/uL (0-1.0); Monocytes % (A) 6 %; Neutrophils # (A) 5.1 k/uL (1.3-7.7); Neutrophils % (A) 72 %; Platelet Count 417 k/uL (150-450); RBC 4.63 m/uL (3.80-5.40); RDW 14.7 % (11.5-15.5)
[2021-04-05 00:48] LABS: Albumin 3.4 g/dL (3.5-5.0); Calcium 9.3 mg/dL (8.4-10.2); Potassium 3.7 mmol/L (3.5-5.1); Total Bilirubin 0.4 mg/dL (0.2-1.3); Total Protein 6.1 g/dL (6.3-8.2)
[2021-04-05] MEDS ORDERED: ACETAMINOPHEN TAB 325 MG TAB PO PRN (02:34)
[2021-04-05] MEDS: SODIUM CHLORIDE 0.9% 1,000 ML IV SCH (02:44)
[2021-04-05] MEDS: FUROSEMIDE 10 MG/ML 4 ML VIAL IV SCH ×2 (02:44→16:43)
[2021-04-05] MEDS ORDERED: ALPRAZolam 1 MG TAB PO STA (03:00)
[2021-04-05] MEDS: PANTOPRAZOLE 40 MG TABLET PO SCH ×2 (06:23→09:28)
[2021-04-05] MEDS ORDERED: PANTOPRAZOLE 40 MG TABLET PO SCH (07:30)
[2021-04-05] MEDS ORDERED: CHOLECALCIFEROL 25 MCG (1000 IU) TABLET PO SCH (08:00)
[2021-04-05] MEDS ORDERED: buPROPion 75 MG TAB PO SCH (08:00)
[2021-04-05] MEDS ORDERED: SERTRALINE 100 MG TAB PO SCH (08:00)
[2021-04-05] MEDS ORDERED: METOPROLOL TARTRATE 25 MG TAB PO SCH (09:00)
[2021-04-05] MEDS ORDERED: AMIODARONE 200 MG TAB PO SCH (09:00)
[2021-04-05] MEDS ORDERED: methIMAzole 5 MG TAB PO SCH (09:00)
[2021-04-05] MEDS ORDERED: LOSARTAN 25 MG TAB PO SCH (09:00)
[2021-04-05] MEDS ORDERED: APIXABAN 2.5 MG TABLET PO SCH ×2 (09:00)
[2021-04-05] MEDS ORDERED: ALPRAZolam 1 MG TAB PO SCH (09:00)
[2021-04-05] MEDS: METOPROLOL TARTRATE 25 MG TAB PO SCH (09:28)
[2021-04-05] MEDS: ALPRAZolam 1 MG TAB PO SCH ×2 (09:28→21:23)
[2021-04-05] MEDS: CHOLECALCIFEROL 25 MCG (1000 IU) TABLET PO SCH (09:29)
[2021-04-05] MEDS: LOSARTAN 25 MG TAB PO SCH (09:29)
[2021-04-05] MEDS: AMIODARONE 200 MG TAB PO SCH (09:29)
[2021-04-05] MEDS: methIMAzole 5 MG TAB PO SCH (09:29)
[2021-04-05] MEDS: buPROPion 75 MG TAB PO SCH (09:29)
[2021-04-05] MEDS: SERTRALINE 100 MG TAB PO SCH (09:29)
--- NOTE | 2021-04-05 12:26 | P.CNPUL ---
History of Present Illness Consult date: 04/05/21 Requesting physician: Rik Ortiz Reason for consult: dyspnea, abnormal CXR/CT (Bilateral pleural effusions) Chief complaint: Shortness of breath History of present illness: This is a very pleasant 76-year-old female patient who follows with Dr. Florentino as her primary care provider. She has a history of non-ST elevated myocardial infarction, coronary artery disease, requiring off-pump three-vessel CABG on 01/25/2021, hyperthyroidism, borderline diabetes mellitus, hypertension, hyperlipidemia, history of breast cancer status post right mastectomy with chemotherapy, diverticulitis status post colostomy and subsequent reversal, and previous history of smoking, atrial fibrillation anticoagulated with Eliquis. Her postoperative care following her bypass surgery in January was uneventful, a nd patient went to [facility] for inpatient rehab after discharge. She has since been readmitted for issues with nausea vomiting diarrhea. Most recently discharged on 03/09/2021. She represented to year to the emergency room yesterday after being seen by her PCP for shortness of br eath. Her chest x-ray does reveal bilateral pleural effusions and we're consulted for the same. She states she was told to stop her Lasix at the last discharge. She's been without for 2-3 days. She states she's gained 5 pounds. More short of breath. More lower extremity edema. EKG reveals sinus rhythm with a left bundle-branch block. Most recent echocardiogram reveals severely impaired left ventricular systolic function with ejection fraction 30-35%. This was February 2021. White count 7.0. Hemoglobin 11.7. Platelets 417. Sodium 139. Potassium 3.7. Creatinine 1.20. Glucose 136. ProBNP 7080. Troponin 0.032. Jin virus not detected. She is seen today in consultation on the selective care unit. She is currently sitting up in a chair at the bedside. Awake and alert in no acute distress. Maintaining O2 saturation in the mid to upper 90s on 2 L/m per nasal cannula. Afebrile. Hemodynamically stable. She has been initiated on IV diuretics. She is anticoagulated with Eliquis. Review of Systems REVIEW OF SYSTEMS: CONSTITUTIONAL: Denies any recent significant weight loss or weight gain. EYES: Denies change in vision. EARS, NOSE, MOUTH, THROAT: Denies headaches, denies sore throat. CARDIOVASCULAR: Denies chest pain, palpitations or syncopal episodes. RESPIRATORY: Positive for shortness of breath, no cough, congestion or hemoptysis. GASTROINTESTINAL: Denies change in appetite, denies abdominal pain GENITOURINARY: Denies hematuria, denies infections. MUSKULOSKELETAL: Positive for increased swelling in the lower extremities. INTEGUMENTARY: Denies rash, denies eczema. NEUROLOGICAL: Denies recent memory loss, no recent seizure activity. PSYCHIATRIC: Denies anxiety, denies depression. HEMATOLOGIC/LYMPHATIC: Denies anemia, denies enlarged lymph nodes. Past Medical History Past Medical History: Coronary Artery Disease (CAD), Cancer, Hyperlipidemia, Hypertension, Memory Impairment, Myocardial Infarction (ME), Osteoarthritis (OA) Additional Past Medical History / Comment(s): 01/25/21 CABG X3 Last Myocardial Infarction Date:: 01/21/21 History of Any Multi-Drug Resistant Organisms: None Reported Past Surgical History: Appendectomy, Bladder Surgery, Bowel Resection, Breast Surgery, Cholecystectomy, Coronary Bypass/CABG, Hysterectomy, Orthopedic Surgery, Tubal Ligation Additional Past Surgical History / Comment(s): cataractsurgery x2 with lens implants, masectomy on right breast, bowel resection with colostomy and reversal, bladder suspension, left knee replacement, skin cancer removed from right ear Past Anesthesia/Blood Transfusion Reactions: No Reported Reaction Past Psychological History: No Psychological Hx Reported, Depression Smoking Status: Former smoker, Unknown if ever smoked Past Alcohol Use History: None Reported Additional Past Alcohol Use History / Comment(s): pt. quit smoking many years ago, was a pack a day smoker for about 20 years, pt. lives [employer], pts. daughter helps her Past Drug Use History: None Reported Additional Drug Use History / Comment(s): Quit smoking 40 years ago; vaccinated against Covid with [employer] vaccine, last dose June 2020 - Past Family History Father Family Medical History: AFIB, Congestive Heart Failure (CHF) Mother Family Medical History: Cancer Additional Family Medical History / Comment(s): breast cancer with mets Medications and Allergies Home Medications Medication Instructions Recorded Confirmed Type Amitriptyline HCl [Elavil] 20 mg PO HS 01/21/21 04/05/21 History Cholecalciferol [Vitamin D3 (25 50 mcg PO DAILY 01/21/21 04/05/21 History Mcg = 1000 Iu)] Rosuvastatin [Crestor] 20 mg PO HS 01/21/21 04/05/21 History buPROPion [Wellbutrin] 75 mg PO DAILY 01/21/21 04/05/21 History Acetaminophen Tab [Tylenol] 650 mg PO Q4HR PRN tab 01/30/21 04/05/21 Rx methIMAzole [Tapazole] 15 mg PO DAILY tab 01/30/21 04/05/21 Rx Losartan [Cozaar] 25 mg PO DAILY 30 Days #30 tab 03/08/21 04/05/21 Rx Apixaban [Eliquis] 2.5 mg PO BID #60 tab 03/17/21 04/05/21 Rx Amiodarone [Cordarone] 200 mg PO DAILY #30 tab 03/19/21 04/05/21 Rx Metoprolol Tartrate [Lopressor] 25 mg PO DAILY #30 tab 03/19/21 04/05/21 Rx ALPRAZolam [Xanax] 1 mg PO BID 03/31/21 04/05/21 History Cefuroxime Axetil [Ceftin] 500 mg PO BID 3 Days #6 tab 04/02/21 04/05/21 Rx Melatonin 5 mg PO HS PRN 04/05/21 04/05/21 History Sertraline [Zoloft] 100 mg PO DAILY 04/05/21 04/05/21 History lisinopriL [Zestril] 5 mg PO DAILY 04/05/21 04/05/21 History Allergies Allergy/AdvReac Type Severity Reaction Status Date / Time No Known Allergies Allergy Verified 04/05/21 10:29 Physical Exam Vitals: Vital Signs Temp Pulse Pulse Resp BP BP Pulse Ox 04/05/21 08:00 98.3 F 82 20 131/63 97 04/05/21 04:00 97.5 F L 67 22 160/67 95 04/05/21 03:36 97.5 F L 22 95 04/05/21 02:46 97.9 F 70 18 142/65 97 04/04/21 21:09 98.6 F 79 21 142/75 98 Intake and Output 04/04/21 04/05/21 04/05/21 22:59 06:59 14:59 Output Total 250 300 Balance -250 -300 Output: Urine 250 300 Other: # Voids 1 1 Weight 65.771 kg 65 kg GENERAL EXAM: Alert, very pleasant 76-year-old female patient, on 2 L nasal cannula, fairly comfortable in no apparent distress. HEAD: Normocephalic. EYES: Normal reaction of pupils, equal size. NOSE: Clear with pink turbinates. THROAT: No erythema or exudates. NECK: No masses, no JVD. CHEST: No chest wall deformity. LUNGS: Equal air entry with crackles in the bilateral posterior bases. CVS: S1 and S2 normal with no audible murmur, regular rhythm. ABDOMEN: No hepatosplenomegaly, normal bowel sounds, no guarding or rigidity. SPINE: No scoliosis or deformity SKIN: No rashes CENTRAL NERVOUS SYSTEM: No focal deficits, tone is normal in all 4 extremities. EXTREMITIES: There is 1-2+ peripheral edema. No clubbing, no cyanosis. Peripheral pulses are intact. Results - Laboratory Findings CBC and BMP: 04/04/21 23:59 04/04/21 23:59 Abnormal lab findings: Abnormal Labs 04/04/21 04/04/21 04/05/21 23:59 23:59 03:45 MCV 79.5 L Creatinine 1.20 H Glucose 136 H Troponin I 0.035 H* Total Protein 6.1 L Albumin 3.4 L - Diagnostic Findings Chest x-ray: image reviewed Assessment and Plan Assessment: 1 Acute hypoxic respiratory failure secondary to an acute exacerbation of chronic systolic congestive heart failure and bilateral pleural effusions 2 Recent admission for nausea vomiting diarrhea, diuretics were held 3 Coronary artery disease status post off-pump CABG 3 with a WESLEY to the LAD, left radial artery graft to the up to his marginal, reverse SVG to the posterior lateral branch of the right coronary artery, and exclusion of the left atrial appendage on 01/25/2021 4 Ischemic cardiomyopathy with ejection fraction 30-35% 5 Paroxysmal atrial fibrillation, on amiodarone, anticoagulated with Eliquis 6 Hypertension 7 Hyperlipidemia 8 Former tobacco smoker 9 History of diverticulitis, status post bowel resection, colostomy, with s ubsequent reversal 10 Former smoking history Plan: The patient was seen and evaluated by Dr. Cole Chest x-ray and labs reviewed We will order ultrasound of the chest for the bilateral effusions Hold Eliquis Possible thoracentesis in a.m. Continue diuretics We will continue to follow and make further recommendations based on her clinical status I, the cosigning physician, performed a history & physical examination of the patient. Lungs sounds crackles in the bilateral posterior bases. Maintaining good O2 saturations in the 90s on 2 L/m per nasal cannula. I discussed the assessment and plan of care with my nurse practitioner, Precious Schrader. I attest to the above note as dictated by her. Time with Patient: Greater than 30
--- NOTE | 2021-04-05 13:03 | US ---
EXAMINATION TYPE: US chest DATE OF EXAM: 04/05/2021 COMPARISON: Chest x-ray from yesterday CLINICAL HISTORY: Bilateral effusions. Abnormal chest x-ray. TECHNIQUE: Targeted ultrasound of the posterior lower bilateral hemithoraces EXAM MEASUREMENTS: Right Pleural Effusion pocket size: 7.3 cm Right skin surface to fluid distance: 2.5 cm Left Pleural Effusion pocket size: 7.4 cm Left skin surface to fluid distance: 2.6 cm Right side marked for possible thoracentesis outside the dept. Left side marked for possible thoracentesis outside the dept. Pulmonologists are able to review the images in the patient?s EMR. Confirmation of large right and moderate-sized bilateral pleural effusions as suspected on x-ray. IMPRESSIONS: As above.
[2021-04-05 13:09] VITALS: BMI 28.9
--- NOTE | 2021-04-05 17:43 | P.HPIM ---
History of Present Illness H&P Date: 04/05/21 Chief Complaint: Dyspnea/pleural effusion 76-year-old female patient, history of non-ST elevated myocardial infarction, coronary artery disease, requiring off-pump three-vessel CABG on 01/25/2021, hyperthyroidism, borderline diabetes mellitus, hypertension, hyperlipidemia, atrial fibrillation anticoagulated with Eliquis. Her postoperative care following her bypass surgery in January was uneventful, and patient went to [facility] for inpatient rehab after discharge. She has since been readmitted for issues with nausea vomiting diarrhea. Most recently discharged on 03/09/2021. Patient presented to the emergency room yesterday after being seen by her PCP for shortness of breath. Her chest x-ray does reveal bilateral pleural effusions; patient reports she was told to stop her Lasix at the last discharge. She's been without for 2-3 days and reports 5 pound weight gain. EKG reveals sinus rhythm with a left bundle-branch block. Most recent echoca rdiogram reveals severely impaired left ventricular systolic function with ejection fraction 30-35%. This was February 2021. White count 7.0. Hemoglobin 11.7. Platelets 417. Sodium 139. Potassium 3.7. Creatinine 1.20. Glucose 136. ProBNP 7080. Troponin 0.032. Jin virus not detected. Review of Systems REVIEW OF SYSTEMS: CONSTITUTIONAL: No fever, no malaise, no fatigue. HEENT: No recent visual problems or hearing problems. Denied any sore throat. CARDIOVASCULAR: No chest pain, orthopnea, PND, no palpitations, no syncope. PULMONARY: shortness of breath, no cough, no hemoptysis. GASTROINTESTINAL: No diarrhea, no nausea, no vomiting, no abdominal pain. NEUROLOGICAL: No headaches, no weakness, no numbness. HEMATOLOGICAL: Denies any bleeding or petechiae. GENITOURINARY: Denies any burning micturition, frequency, or urgency. MUSCULOSKELETAL/RHEUMATOLOGICAL: Denies any joint pain, swelling, or any muscle pain. ENDOCRINE: Denies any polyuria or polydipsia. The rest of the 14-point review of systems is negative. Past Medical History Past Medical History: Coronary Artery Disease (CAD), Cancer, Hyperlipidemia, Hypertension, Memory Impairment, Myocardial Infarction (DE), Osteoarthritis (OA) Additional Past Medical History / Comment(s): 01/25/21 CABG X3 Last Myocardial Infarction Date:: 01/21/21 History of Any Multi-Drug Resistant Organisms: None Reported Past Surgical History: Appendectomy, Bladder Surgery, Bowel Resection, Breast Surgery, Cholecystectomy, Coronary Bypass/CABG, Hysterectomy, Orthopedic Surgery, Tubal Ligation Additional Past Surgical History / Comment(s): cataractsurgery x2 with lens implants, masectomy on right breast, bowel resection with colostomy and reversal, bladder suspension, left knee replacement, skin cancer removed from right ear Past Anesthesia/Blood Transfusion Reactions: No Reported Reaction Past Psychological History: No Psychological Hx Reported, Depression Smoking Status: Former smoker, Unknown if ever smoked Past Alcohol Use History: None Reported Additional Past Alcohol Use History / Comment(s): pt. quit smoking many years ago, was a pack a day smoker for about 20 years, pt. lives [employer], pts. daughter helps her Past Drug Use History: None Reported Additional Drug Use History / Comment(s): Quit smoking 40 years ago; vaccinated against Covid with [place] vaccine, last dose June 2020 - Past Family History Father Family Medical History: AFIB, Congestive Heart Failure (CHF) Mother Family Medical History: Cancer Additional Family Medical History / Comment(s): breast cancer with mets Medications and Allergies Home Medications Medication Instructions Recorded Confirmed Type Amitriptyline HCl [Elavil] 20 mg PO HS 01/21/21 04/05/21 History Cholecalciferol [Vitamin D3 (25 50 mcg PO DAILY 01/21/21 04/05/21 History Mcg = 1000 Iu)] Rosuvastatin [Crestor] 20 mg PO HS 01/21/21 04/05/21 History buPROPion [Wellbutrin] 75 mg PO DAILY 01/21/21 04/05/21 History Acetaminophen Tab [Tylenol] 650 mg PO Q4HR PRN tab 01/30/21 04/05/21 Rx methIMAzole [Tapazole] 15 mg PO DAILY tab 01/30/21 04/05/21 Rx Losartan [Cozaar] 25 mg PO DAILY 30 Days #30 tab 03/08/21 04/05/21 Rx Apixaban [Eliquis] 2.5 mg PO BID #60 tab 03/17/21 04/05/21 Rx Amiodarone [Cordarone] 200 mg PO DAILY #30 tab 03/19/21 04/05/21 Rx Metoprolol Tartrate [Lopressor] 25 mg PO DAILY #30 tab 03/19/21 04/05/21 Rx ALPRAZolam [Xanax] 1 mg PO BID 03/31/21 04/05/21 History Cefuroxime Axetil [Ceftin] 500 mg PO BID 3 Days #6 tab 04/02/21 04/05/21 Rx Melatonin 5 mg PO HS PRN 04/05/21 04/05/21 History Sertraline [Zoloft] 100 mg PO DAILY 04/05/21 04/05/21 History lisinopriL [Zestril] 5 mg PO DAILY 04/05/21 04/05/21 History Allergies Allergy/AdvReac Type Severity Reaction Status Date / Time No Known Allergies Allergy Verified 04/05/21 10:29 Physical Exam Vitals: Vital Signs Temp Pulse Pulse Resp BP BP Pulse Ox 04/05/21 08:00 98.3 F 82 20 131/63 97 04/05/21 04:00 97.5 F L 67 22 160/67 95 04/05/21 03:36 97.5 F L 22 95 04/05/21 02:46 97.9 F 70 18 142/65 97 04/04/21 21:09 98.6 F 79 21 142/75 98 Intake and Output 04/04/21 04/05/21 04/05/21 22:59 06:59 14:59 Output Total 250 300 Balance -250 -300 Output: Urine 250 300 Other: # Voids 1 1 Weight 65.771 kg 65 kg PHYSICAL EXAMINATION: GENERAL: The patient is alert and oriented x3, not in any acute distress. Well developed, well nourished. HEENT: Pupils are round and equally reacting to light. EOMI. No scleral icterus. No conjunctival pallor. Normocephalic, atraumatic. No pharyngeal erythema. No thyromegaly. CARDIOVASCULAR: S1 and S2 present. No murmurs, rubs, or gallops. PULMONARY: Chest is clear to auscultation, no wheezing or crackles. ABDOMEN: Soft, nontender, nondistended, normoactive bowel sounds. No palpable organomegaly. MUSCULOSKELETAL: No joint swelling or deformity. EXTREMITIES: No cyanosis, clubbing, or pedal edema. NEUROLOGICAL: Gross neurological examination did not reveal any focal deficits. SKIN: No rashes. Results CBC & Chem 7: 04/04/21 23:59 04/04/21 23:59 Labs: Abnormal Lab Results - Last 24 Hours (Table) 04/04/21 04/04/21 04/05/21 Range/Units 23:59 23:59 03:45 MCV 79.5 L (80.0-100.0) fL Creatinine 1.20 H (0.52-1.04) mg/dL Glucose 136 H (74-99) mg/dL Troponin I 0.035 H* (0.000-0.034) ng/mL Total Protein 6.1 L (6.3-8.2) g/dL Albumin 3.4 L (3.5-5.0) g/dL Thrombosis Risk Factor Assmnt - Choose All That Apply Each Factor Represents 1 point: Heart failure (<1month) Each Risk Factor Represents 2 Points: Age 61-74 years Thrombosis Risk Factor Assessment Total Risk Factor Score: 3 Thrombosis Risk Factor Assessment Level: Moderate Risk Assessment and Plan Assessment: 1. Acute hypoxic respiratory failure; multifactorial; pleural effusion/CHF; O2 per nasal cannula; titrate to keep FiO2 greater than 90% 2. Acute exacerbation systolic CHF/ischemic cardiomyopathy; Lasix 40 mg IV every 12 hours; monitor strict RANDA's and daily weights; low-salt and fluid restricted diet; consult cardiology; patient does have EF of 30-35% 3. Bilateral pleural effusion; patient has been placed on Lasix 40 mg IV every 12 hours 4. Coronary artery disease/ischemic cardiomyopathy; status post off-pump CABG 3 with a WESLEY to the LAD, left radial artery graft to the up to his marginal, reverse SVG to the posterior lateral branch of the right coronary artery, and exclusion of the left atrial appendage on 01/25/2021; EF 30-35% 5. Paroxysmal atrial fibrillation; patient remains rate controlled on amiodarone with anticoagulation with Eliquis 6. Hypertension; metoprolol 25 mg daily, lisinopril 5 mg daily, Lasix 40 mg IV every 12 hours 7. Hyperlipidemia; Lipitor 40 mg by mouth daily at bedtime DVT prophylaxis; SCDs/systemic anticoagulation CODE STATUS; full code
[2021-04-05] MEDS ORDERED: AMITRIPTYLINE HCL 10 MG TAB PO SCH (21:00)
[2021-04-05] MEDS ORDERED: MELATONIN 5 MG TABLET PO SCH (21:00)
[2021-04-05] MEDS: AMITRIPTYLINE HCL 10 MG TAB PO SCH (21:22)
[2021-04-05] MEDS: ATORVASTATIN 40 MG TAB PO SCH (21:23)
[2021-04-05] MEDS: MELATONIN 5 MG TABLET PO SCH (21:23)
[2021-04-05] MEDS ORDERED: NON FORMULARY DRUG (Rosuvastatin 20 MG Tablet) PO SCH (22:00)
[2021-04-06] MEDS: FUROSEMIDE 10 MG/ML 4 ML VIAL IV SCH ×3 (04:45→21:04)
[2021-04-06 08:51] LABS: Potassium 4.1 mmol/L (3.5-5.1)
[2021-04-06 09:01] LABS: Basophils % (A) 1 %; Eosinophils # (A) 0.4 k/uL (0-0.7); Eosinophils % (A) 6 %; HCT 37.2 % (34.0-46.0); Hypochromasia Slight; Lymphocytes # (A) 0.7 k/uL (1.0-4.8); Lymphocytes % (A) 11 %; MCH 25.7 pg (25.0-35.0); MCHC 32.4 g/dL (31.0-37.0); MCV 79.4 fL (80.0-100.0); Monocytes # (A) 0.4 k/uL (0-1.0); Monocytes % (A) 6 %; Neutrophils # (A) 4.8 k/uL (1.3-7.7); Neutrophils % (A) 76 %; Platelet Count 389 k/uL (150-450); RBC 4.68 m/uL (3.80-5.40); RDW 14.9 % (11.5-15.5); WBC 6.4 k/uL (3.8-10.6)
[2021-04-06] MEDS: methIMAzole 5 MG TAB PO SCH (10:05)
[2021-04-06] MEDS: AMIODARONE 200 MG TAB PO SCH (10:06)
[2021-04-06] MEDS: LOSARTAN 25 MG TAB PO SCH (10:06)
[2021-04-06] MEDS: METOPROLOL TARTRATE 25 MG TAB PO SCH (10:06)
[2021-04-06] MEDS: ALPRAZolam 1 MG TAB PO SCH ×2 (10:06→21:03)
[2021-04-06] MEDS: CHOLECALCIFEROL 25 MCG (1000 IU) TABLET PO SCH (10:06)
[2021-04-06] MEDS: SERTRALINE 100 MG TAB PO SCH (10:07)
[2021-04-06] MEDS: buPROPion 75 MG TAB PO SCH (10:07)
[2021-04-06] MEDS: lisinopriL 5 MG TAB PO SCH (10:07)
[2021-04-06] MEDS: SODIUM CHLORIDE 0.9% 1,000 ML IV SCH (10:07)
--- NOTE | 2021-04-06 13:09 | CONS ---
CONSULTATION Jenny is a 76-year-old lady with history of coronary artery disease, status post CABG on 01/25/2021, hypothyroidism, atrial fibrillation, hypertension, and dyslipidemia, who presented to the emergency room complaining of shortness of breath. Her chest x-ray showed a pleural effusion. Currently Eliquis is on hold for possible thoracentesis. EKG shows sinus rhythm with left bundle branch block and her LV systolic function is impaired with an ejection fraction of 30% to 35%. At the time of my evaluation, patient appears comfortable at rest and is having her lunch. She does not seem to be in respiratory distress. Her BNP is elevated at 7018. Her coronavirus is negative. Her clinical presentation is consistent with acute exacerbation of chronic systolic heart failure. PAST MEDICAL HISTORY: Significant for paroxysmal atrial fibrillation, coronary artery disease, status post CABG, and congestive heart failure. MEDICATIONS: Medications at home include Lopressor 25 mg daily, Tapazole, Zestril, Zoloft, Crestor, Cozaar, Eliquis, Cordarone, Tylenol and Xanax. ALLERGIES: There are NO KNOWN DRUG ALLERGIES. FAMILY HISTORY: Negative for premature coronary artery disease. SOCIAL HISTORY: Negative for smoking, EtOH abuse or drug abuse. REVIEW OF SYSTEMS: HEENT is unremarkable. CARDIAC: As described above. RESPIRATORY: As described above. GI: Negative. GENITOURINARY: Negative. ALLERGY/IMMUNOLOGY: Negative. SKIN: Negative. MUSCULOSKELETAL: Significant for arthritis. PSYCHOSOCIAL: Negative. DERMATOLOGY: Negative. CONSTITUTIONAL: Negative. ONCOLOGICAL: Negative. TITLE INSURANCE AGENT: Negative. PHYSICAL EXAMINATION: Comfortable at rest. Vital signs are stable. Chest exam reveals diminished air entry at the bases. Heart exam reveals first and second heart sounds and a systolic murmur at the left lower sternal border. Abdomen is soft. Examination of extremities did not reveal any edema. Peripheral pulses are felt. LABS: Hemoglobin 12, platelet count is 389, potassium is 4.1, creatinine is 1.2. Troponins are mildly elevated at 0.03 and 0.035. EKG shows sinus rhythm with left bundle branch block. ASSESSMENT: 1. Acute exacerbation of chronic systolic heart failure, troponin elevation; probably type 2 myocardial infarction. 2. Coronary artery disease, status post coronary artery bypass grafting. 3. Paroxysmal atrial fibrillation. PLAN: I will treat the patient with IV Lasix, continue the beta blockers and Lipitor that she is on. Resume the Eliquis once we are able to. MMODL / IJN: [id number] /
--- NOTE | 2021-04-06 13:21 | P.PN ---
Subjective Progress Note Date: 04/06/21 Principal diagnosis: Acute exacerbation of systolic congestive heart failure This is a very pleasant 76-year-old female patient who follows with Dr. Florentino as her primary care provider. She has a history of non-ST elevated myocardial infarction, coronary artery disease, requiring off-pump three-vessel CABG on 01/25/2021, hyperthyroidism, borderline diabetes mellitus, hypertension, hyperlipidemia, history of breast cancer status post right mastectomy with chemotherapy, diverticulitis status post colostomy and subsequent reversal, and previous history of smoking, atrial fibrillation anticoagulated with Eliquis. Her postoperative care following her bypass surgery in January was uneventful, and patient went to [facility] for inpatient rehab after discharge. She has since been readmitted for issues with nausea vomiting diarrhea. Most recently discharged on 03/09/2021. She represented to year to the emergency room yesterday after being seen by her PCP for shortness of breath. Her chest x-ray does reveal bilateral pleural effusions and we're consulted for the same. She states she was told to stop her Lasix at the last discharge. She's been without for 2-3 days. She states she's gained 5 pounds. More short of breath. More lower extremity edema. EKG reveals sinus rhythm with a left bundle-branch block. Most recent echocardiogram reveals severely impaired left ventricular systolic function with ejection fraction 30-35%. This was February 2021. White count 7.0. Hemoglobin 11.7. Platelets 417. Sodium 139. Potassium 3.7. Creatinine 1.20. Glucose 136. ProBNP 7080. Troponin 0.032. Jin virus not detected. She is seen today in consultation on the selective care unit. She is currently sitting up in a chair at the bedside. Awake and alert in no acute distress. Maintaining O2 saturation in the mid to upper 90s on 2 L/m per nasal cannula. Afebrile. Hemodynamically stable. She has been initiated on IV diuretics. She is anticoagulated with Eliquis. The patient is seen today 04/06/2021 in follow-up on the selective care unit. She is currently sitting up in a chair at the bedside. Awake and alert in no acute distress. Breathing a bit easier today compared to yesterday. Ultrasound of the chest reveals a right-sided pleural effusion pocket size 7.3 cm, left pleural effusion pocket size 7.4 cm. The patient is quite reluctant to have a thoracentesis performed. We'll repeat a chest x-ray in the a.m. She remains on IV Lasix 40 mg every 12 hours. She is maintaining good O2 saturations in the 90s on room air. White count 6.4. Hemoglobin 12.0. Sodium 138. Potassium 4.1. Creatinine 1.20. Glucose 162. Objective - Vital Signs Vital signs: Vital Signs Temp 98.4 F 04/06/21 12:36 Pulse 72 04/06/21 12:36 Resp 20 04/06/21 12:36 BP 114/69 04/06/21 12:36 Pulse Ox 94 L 04/06/21 12:52 Intake & Output 04/05/21 04/06/21 04/06/21 18:59 06:59 18:59 Intake Total 358 510 Output Total 300 1200 200 Balance 58 -1200 310 Weight 65 kg 65 kg Intake: IV 10 Invasive Line 1 10 Oral 358 500 Output: Urine 300 200 Other 1200 Other: # Voids 1 1 - Exam GENERAL EXAM: Alert, very pleasant 76-year-old female patient, on room air, fairly comfortable in no apparent distress. HEAD: Normocephalic. EYES: Normal reaction of pupils, equal size. NOSE: Clear with pink turbinates. THROAT: No erythema or exudates. NECK: No masses, no JVD. CHEST: No chest wall deformity. LUNGS: Equal air entry with crackles in the bilateral posterior bases. CVS: S1 and S2 normal with no audible murmur, regular rhythm. ABDOMEN: No hepatosplenomegaly, normal bowel sounds, no guarding or rigidity. SPINE: No scoliosis or deformity SKIN: No rashes CENTRAL NERVOUS SYSTEM: No focal deficits, tone is normal in all 4 extremities. EXTREMITIES: There is 1-2+ peripheral edema. No clubbing, no cyanosis. Peripheral pulses are intact. - Labs CBC & Chem 7: 04/06/21 08:24 04/06/21 08:24 Labs: Abnormal Lab Results - Last 24 Hours (Table) 04/06/21 04/06/21 Range/Units 08:24 08:24 MCV 79.4 L (80.0-100.0) fL Lymphocytes # 0.7 L (1.0-4.8) k/uL Creatinine 1.20 H (0.52-1.04) mg/dL Glucose 162 H (74-99) mg/dL Assessment and Plan Assessment: 1 Acute hypoxic respiratory failure secondary to an acute exacerbation of buffer chrome henri systolic congestive heart failure and bilateral pleural effusions 2 Recent admission for nausea vomiting diarrhea, diuretics were held 3 Coronary artery disease status post off-pump CABG 3 with a WESLEY to the LAD, left radial artery graft to the up to his marginal, reverse SVG to the posterior lateral branch of the right coronary artery, and exclusion of the left atrial appendage on 01/25/2021 4 Ischemic cardiomyopathy with ejection fraction 30-35% 5 Paroxysmal atrial fibrillation, on amiodarone, anticoagulated with Eliquis 6 Hypertension 7 Hyperlipidemia 8 Former tobacco smoker 9 History of diverticulitis, status post bowel resection, colostomy, with subsequent reversal 10 Former smoking history Plan: The patient was seen and evaluated by Dr. Cole Will hold off on thoracentesis for now Continue IV diuretics Hold Eliquis Repeat chest x-ray in a.m. We will continue to follow I, the cosigning physician, performed a history & physical examination of the patient. Lungs sounds crackles in the bilateral posterior bases. Maintaining good O2 saturations in the 90s on room air. I discussed the assessment and plan of care with my nurse practitioner, Precious Schrader. I attest to the above note as dictated by her.
--- NOTE | 2021-04-06 18:48 | P.PN ---
Subjective Progress Note Date: 04/06/21 Principal diagnosis: Acute hypoxic respiratory failure Acute exacerbation systolic CHF Bilateral pleural effusions 76-year-old female patient, history of non-ST elevated myocardial infarction, coronary artery disease, requiring off-pump three-vessel CABG on 01/25/2021, hyperthyroidism, borderline diabetes mellitus, hypertension, hyperlipidemia, atrial fibrillation anticoagulated with Eliquis. Her postoperative care following her bypass surgery in January was uneventful, and patient went to [facility] for inpatient rehab after discharge. She has since been readmitted for issues with nausea vomiting diarrhea. Most recently discharged on 03/09/2021. Patient presented to the emergency room yesterday after being seen by her PCP for shortness of breath. Her chest x-ray does reveal bilateral pleural effusions; patient reports she was told to stop her Lasix at the last discharge. She's been without for 2-3 days and reports 5 pound weight gain. EKG reveals sinus rhythm with a left bundle-branch block. Most recent echocardiogram reveals severely impaired left ventricular systolic function with ejection fraction 30-35%. This was February 2021. White count 7.0. Hemoglobin 11.7. Platelets 417. Sodium 139. Potassium 3.7. Creatinine 1.20. Glucose 136. ProBNP 7080. Troponin 0.032. Jin virus not detected. Objective - Vital Signs Vital signs: Vital Signs Temp 98.4 F 04/06/21 08:30 Pulse 79 04/06/21 08:30 Resp 20 04/06/21 08:30 BP 106/62 04/06/21 08:30 Pulse Ox 96 04/06/21 08:30 Intake & Output 04/05/21 04/06/21 04/06/21 18:59 06:59 18:59 Intake Total 358 240 Output Total 300 1200 Balance 58 -1200 240 Weight 65 kg 65 kg Intake: Oral 358 240 Output: Urine 300 Other 1200 Other: # Voids 1 1 - Exam GENERAL: The patient is alert and oriented x3, not in any acute distress. Well developed, well nourished. HEENT: Pupils are round and equally reacting to light. EOMI. No scleral icterus. No conjunctival pallor. Normocephalic, atraumatic. No pharyngeal erythema. No thyromegaly. CARDIOVASCULAR: S1 and S2 present. No murmurs, rubs, or gallops. PULMONARY: Chest is clear to auscultation, no wheezing or crackles. ABDOMEN: Soft, nontender, nondistended, normoactive bowel sounds. No palpable organomegaly. MUSCULOSKELETAL: No joint swelling or deformity. EXTREMITIES: No cyanosis, clubbing, or pedal edema. NEUROLOGICAL: Gross neurological examination did not reveal any focal deficits. SKIN: No rashes. - Labs CBC & Chem 7: 04/06/21 08:24 04/06/21 08:24 Labs: Abnormal Lab Results - Last 24 Hours (Table) 04/06/21 04/06/21 Range/Units 08:24 08:24 MCV 79.4 L (80.0-100.0) fL Lymphocytes # 0.7 L (1.0-4.8) k/uL Creatinine 1.20 H (0.52-1.04) mg/dL Glucose 162 H (74-99) mg/dL Assessment and Plan Assessment: 1. Acute hypoxic respiratory failure; multifactorial; pleural effusion/CHF; O2 per nasal cannula; titrate to keep FiO2 greater than 90% 2. Acute exacerbation systolic CHF/ischemic cardiomyopathy; Lasix 40 mg IV every 12 hours; monitor strict RANDA's and daily weights; low-salt and fluid restricted diet; consult cardiology; patient does have EF of 30-35% 3. Bilateral pleural effusion; patient has been placed on Lasix 40 mg IV every 12 hours 4. Coronary artery disease/ischemic cardiomyopathy; status post off-pump CABG 3 with a WESLEY to the LAD, left radial artery graft to the up to his marginal, reverse SVG to the posterior lateral branch of the right coronary artery, and exclusion of the left atrial appendage on 01/25/2021; EF 30-35% 5. Paroxysmal atrial fibrillation; patient remains rate controlled on amiodarone with anticoagulation with Eliquis 6. Hypertension; metoprolol 25 mg daily, lisinopril 5 mg daily, Lasix 40 mg IV every 12 hours 7. Hyperlipidemia; Lipitor 40 mg by mouth daily at bedtime DVT prophylaxis; SCDs/systemic anticoagulation CODE STATUS; full code
[2021-04-06] MEDS: ATORVASTATIN 40 MG TAB PO SCH (21:03)
[2021-04-06] MEDS: MELATONIN 5 MG TABLET PO SCH (21:03)
[2021-04-06] MEDS: AMITRIPTYLINE HCL 10 MG TAB PO SCH (23:13)
[2021-04-07] MEDS: SERTRALINE 100 MG TAB PO SCH (09:04)
[2021-04-07] MEDS: AMIODARONE 200 MG TAB PO SCH (09:04)
[2021-04-07] MEDS: lisinopriL 5 MG TAB PO SCH (09:04)
[2021-04-07] MEDS: methIMAzole 5 MG TAB PO SCH (09:05)
[2021-04-07] MEDS: LOSARTAN 25 MG TAB PO SCH (09:05)
[2021-04-07] MEDS: ALPRAZolam 1 MG TAB PO SCH ×2 (09:05→20:11)
[2021-04-07] MEDS: PANTOPRAZOLE 40 MG TABLET PO SCH (09:05)
[2021-04-07] MEDS: CHOLECALCIFEROL 25 MCG (1000 IU) TABLET PO SCH (09:05)
[2021-04-07] MEDS: METOPROLOL TARTRATE 25 MG TAB PO SCH (09:06)
[2021-04-07] MEDS: SODIUM CHLORIDE 0.9% 1,000 ML IV SCH (09:06)
[2021-04-07] MEDS: buPROPion 75 MG TAB PO SCH (09:06)
--- NOTE | 2021-04-07 10:10 | P.PN ---
Subjective Progress Note Date: 04/07/21 HISTORY OF PRESENT ILLNESS: This is a 76-year-old female, patient of Dr. Hess, with a history of congestive heart failure, coronary artery disease with recent CABG 3, ischemic cardiomyopathy, paroxysmal atrial fibrillation, hypertension, and hyperlipidemia. Patient is admitted to the hospital secondary to acute exacerbation of heart failure. Patient remains on IV Lasix. Patient examined this morning at the bedside. Patient denies chest pain or pressure. She states her shortness of breath is improving. She is nervous about the possibility of having a thoracentesis today. PHYSICAL EXAM: VITAL SIGNS: Reviewed. GENERAL: Well-developed in no acute distress. NECK: Supple. No JVD or thyromegaly LUNGS: Respirations even and unlabored. Lungs diminished to auscultation bilaterally. HEART: Regular rate and rhythm. S1 and S2 heard. EXTREMITIES: Normal range of motion. No clubbing or cyanosis. Peripheral pulses intact. No lower extremity edema ASSESSMENT: Acute exacerbation of chronic systolic congestive heart failure Bilateral pleural effusions Coronary artery disease with recent CABG 3 Ischemic cardiomyopathy Paroxysmal atrial fibrillation Hypertension Hyperlipidemia PLAN: Continue IV Lasix Monitor kidney function Daily weights Accurate I&O Eliquis remains on hold for possible thoracentesis. Await further recommendations from pulmonary Further recommendations pending patient's course Nurse practitioner note has been reviewed by physician. Signing provider agrees with the documented findings, assessment, and plan of care. Objective - Vital Signs Vital signs: Vital Signs Temp 97.6 F 04/07/21 08:15 Pulse 82 04/07/21 08:15 Resp 20 04/07/21 08:15 BP 120/71 04/07/21 08:15 Pulse Ox 95 04/07/21 08:15 Intake & Output 04/06/21 04/07/21 04/07/21 18:59 06:59 18:59 Intake Total 780 250 Output Total 350 600 300 Balance 430 -600 -50 Weight 64.8 kg Intake: IV 20 10 Invasive Line 1 20 10 Oral 760 240 Output: Urine 350 600 300 Other: Voiding Method Toilet Toilet # Voids 1 - Labs CBC & Chem 7: 04/06/21 08:24 04/06/21 08:24
[2021-04-07] MEDS: ACETAMINOPHEN TAB 325 MG TAB PO PRN (11:52)
[2021-04-07 11:53] LABS: Glucose,Whole Blood 116 mg/dL (75-99)
[2021-04-07] MEDS: FUROSEMIDE 10 MG/ML 4 ML VIAL IV SCH (11:57)
--- NOTE | 2021-04-07 12:27 | XR ---
EXAMINATION TYPE: XR chest 1V portable DATE OF EXAM: 04/07/2021 COMPARISON: 04/07/2021 HISTORY: 76 years Female. STUDY INDICATION GIVEN: right thoracentesis . TECHNIQUE: Upright frontal chest radiograph IMPRESSION: There is moderate bilateral pleural effusion decreased in size on the right and stable in size on the left. No pneumothorax seen. Bibasilar subsegmental atelectasis, underlying infiltrate cannot be excluded. Cardiomediastinal silhouette cannot be reliably evaluated due to effusion. Intrathoracic aortic calcifications are noted. Generalized osteopenia. No acute osseous abnormality seen.
--- NOTE | 2021-04-07 12:56 | PCN ---
PROCEDURE NOTE PULMONARY/CRITICAL CARE PROCEDURE NOTE: PROCEDURE: Right-sided thoracentesis. PREOPERATIVE DIAGNOSIS: Right pleural effusion. POSTOPERATIVE DIAGNOSIS: Right pleural effusion. OPERATORS: 1. Dr. Cole. 2. Dr. Hathaway. PROCEDURE DESCRIPTION: There was informed consent. A universal time-out was completed verifying correct patient, procedure, site, positioning , and implant (s) or special equipment if applicable. Ultrasound guidance was used to brooks the posterior chest and appropriate fluid pocket was identified and marked. Patient was positioned, prepped and draped in usual sterile fashion. Lidocaine was used to anesthetize the area. A Thoracentesis catheter was introduced into the pleural space and 1100 mL of yellow fluid was removed from the right pleural space. Blood loss was none. A chest x-ray was ordered to evaluate for pneumothorax. The patient tolerated the procedure well. There was no immediate complication. The fluid will be sent for analysis. MMODL / IJN: [id number] /
--- NOTE | 2021-04-07 13:22 | XR ---
EXAMINATION TYPE: XR chest 2V DATE OF EXAM: 04/07/2021 COMPARISON: 04/04/2021 HISTORY: 76 years Female. STUDY INDICATION GIVEN: Bilateral effusions . TECHNIQUE: Frontal lateral chest radiographs IMPRESSION: There is a moderate right and small left pleural effusion. The volume of pleural effusion has slightl y decreased on the right. There are bibasilar opacities likely reflecting atelectasis, underlying infiltrate cannot be entirely excluded. No pneumothorax. There are mild COPD/emphysema changes. Evaluation of the cardiac silhouette is difficult due to presence of effusions. Cardiac device intrat horacic aortic calcifications are again seen. No acute osseous abnormality.
--- NOTE | 2021-04-07 14:13 | P.PN ---
Subjective Progress Note Date: 04/07/21 Principal diagnosis: Acute exacerbation of systolic CHF This is a very pleasant 76-year-old female patient who follows with Dr. Florentino as her primary care provider. She has a history of non-ST elevated myocardial infarction, coronary artery disease, requiring off-pump three-vessel CABG on 01/25/2021, hyperthyroidism, borderline diabetes mellitus, hypertension, hyperlipidemia, history of breast cancer status post right mastectomy with chemotherapy, diverticulitis status post colostomy and subsequent reversal, and previous history of smoking, atrial fibrillation anticoagulated with Eliquis. Her postoperative care following her bypass surgery in January was uneventful, and patient went to [facility] for inpatient rehab after discharge. She has since been readmitted for issues with nausea vomiting diarrhea. Most recently discharged on 03/09/2021. She represented to year to the emergency room yesterday after being seen by her PCP for shortness of ashia th. Her chest x-ray does reveal bilateral pleural effusions and we're consulted for the same. She states she was told to stop her Lasix at the last discharge. She's been without for 2-3 days. She states she's gained 5 pounds. More short of breath. More lower extremity edema. EKG reveals sinus rhythm with a left bundle-branch block. Most recent echocardiogram reveals severely impaired left ventricular systolic function with ejection fraction 30-35%. This was February 2021. White count 7.0. Hemoglobin 11.7. Platelets 417. Sodium 139. Potassium 3.7. Creatinine 1.20. Glucose 136. ProBNP 7080. Troponin 0.032. Jin virus not detected. She is seen today in consultation on the selective care unit. She is currently sitting up in a chair at the bedside. Awake and alert in no acute distress. Maintaining O2 saturation in the mid to upper 90s on 2 L/m per nasal cannula. Afebrile. Hemodynamically stable. She has been initiated on IV diuretics. She is anticoagulated with Eliquis. The patient is seen today 04/06/2021 in follow-up on the selective care unit. She is currently sitting up in a chair at the bedside. Awake and alert in no acute distress. Breathing a bit easier today compared to yesterday. Ultrasound of the chest reveals a right-sided pleural effusion pocket size 7.3 cm, left pleural effusion pocket size 7.4 cm. The patient is quite reluctant to have a thoracentesis performed. We'll repeat a chest x-ray in the a.m. She remains on IV Lasix 40 mg every 12 hours. She is maintaining good O2 saturations in the 90s on room air. White count 6.4. Hemoglobin 12.0. Sodium 138. Potassium 4.1. Creatinine 1.20. Glucose 162. On 04/07/2021 patient seen in follow-up on selective care unit, she is oriented, in no acute distress, she is sitting in the chair, she is on room air, with pulse ox of 92-93%, she does desaturate with any exertion. Afebrile, no chest pain. Only occasional cough. Her chest ultrasound from 2 days ago showed right pleural effusion pocket of 7.3 cm, and left pleural effusion pocket of 7.4 cm. Her proBNP was elevated at 7080, she was negative for COVID-19, as no leukocytosis on her blood work, no fever or chills. Patient has been on Lasix 40 mg twice daily, she has been remaining in negative fluid balance. Today she underwent right-sided thoracentesis would removal of 1.1 L of jessy colored pleural fluid which was sent for pleural fluid analysis, cultures and cytology. Patient tolerated procedure very well, postprocedure chest x-ray showed moderate bilateral pleural effusion decreased in size on the right is stable on the left no pneumothorax. Objective - Vital Signs Vital signs: Vital Signs Temp 97.3 F L 04/07/21 11:51 Pulse 65 04/07/21 11:51 Resp 20 04/07/21 13:57 BP 103/68 04/07/21 11:51 Pulse Ox 98 04/07/21 11:51 Intake & Output 04/06/21 04/07/21 04/07/21 18:59 06:59 18:59 Intake Total 780 500 Output Total 350 600 300 Balance 430 -600 200 Weight 64.8 kg Intake: IV 20 20 Invasive Line 1 20 20 Oral 760 480 Output: Urine 350 600 300 Other: Voiding Method Toilet Toilet # Voids 1 - Exam GENERAL EXAM: Alert, pleasant, 76-year-old white female, on room air with pulse ox of 92%, comfortable in no apparent distress. HEAD: Normocephalic/atraumatic. EYES: Normal reaction of pupils, equal size. Conjunctiva pink, sclera white. NOSE: Clear with pink turbinates. THROAT: No erythema or exudates. NECK: No masses, no JVD, no thyroid enlargement, no adenopathy. CHEST: No chest wall deformity. Symmetrical expansion. LUNGS: Equal air entry with diminished breath sounds at bilateral bases, with crackles CVS: Regular rate and rhythm, normal S1 and S2, no gallops, no murmurs, no rubs ABDOMEN: Soft, nontender. No hepatosplenomegaly, normal bowel sounds, no guarding or rigidity. EXTREMITIES: No clubbing, no edema, no cyanosis, 2+ pulses and upper and lower extremities. MUSCULOSKELETAL: Muscle strength and tone normal. SPINE: No scoliosis or deformity SKIN: No rashes CENTRAL NERVOUS SYSTEM: Alert and oriented -3. No focal deficits, tone is normal in all 4 extremities. PSYCHIATRIC: Alert and oriented -3. Appropriate affect. Intact judgment and insight. - Labs CBC & Chem 7: 04/06/21 08:24 04/06/21 08:24 Labs: Abnormal Lab Results - Last 24 Hours (Table) 04/07/21 Range/Units 11:52 POC Glucose (mg/dL) 116 H (75-99) mg/dL Assessment and Plan Plan: Assessment: #1. Acute hypoxic respiratory failure secondary to acute exacerbation of chronic CHF with systolic dysfunction in bilateral pleural effusions, status post right-sided thoracentesis on 04/07/2021 with removal of 1.1 L of jessy- colored pleural fluid which was sent for pleural fluid analysis, cytology and cu ltures #2. Recent hospitalization in February 2021 for acute exacerbation of systolic CHF, and at that time patient also had bilateral pleural effusions that were small was treated medically #3. Coronary artery disease status post off-pump coronary artery bypass grafting 3 with a WESLEY to the LAD, left radial arterial graft to the obtuse marginal, and reverse SVG to the posterior branch of the RCA and exclusion of the left atrial appendage on 01/25/2021 #4. Ischemic cardiomyopathy with ejection fraction of 30-35% #5. Paroxysmal atrial fibrillation on amiodarone, and Eliquis, currently in sinus mechanism #6. Hypertension #7. Hyperlipidemia #8. Former tobacco smoker #9. History of diverticulitis status post bowel resection, colostomy and subsequent reversal Plan: Patient tolerated right-sided thoracentesis very well, postprocedure there is no evidence of pneumothorax Patient may need left-sided thoracentesis tomorrow Continue holding anticoagulation Pleural fluid was sent for analysis, cultures and cytology In the meantime continue with diuretics and medical management We'll continue to follow I performed a history & physical examination of the patient and discussed their management with my nurse practitioner, Shelley Hathaway. I reviewed the nurse practitioner's note and agree with the documented findings and plan of care. Lung sounds are positive for dim breath sounds throughout the lung hanson. The findings and the impression was discussed with the patient. I attest to the documentation by the nurse practitioner. Time with Patient: Less than 30
[2021-04-07 14:53] LABS: Appearance,BF Clear; Color,BF Yellow
[2021-04-07 14:54] LABS: Nucleated Cells, Body Fluid 155 /uL; RBC, Body Fluid 500 /uL
[2021-04-07 14:56] LABS: Mononuclear WBC,Body Fluid 66 %; Polynuclear WBC,Body Fluid 18 %; Total Cells Counted,Body Fluid 100
--- NOTE | 2021-04-07 16:10 | P.PN ---
Subjective Progress Note Date: 04/07/21 Principal diagnosis: Acute hypoxic respiratory failure Acute exacerbation systolic CHF Bilateral pleural effusions 76-year-old female patient, history of non-ST elevated myocardial infarction, coronary artery disease, requiring off-pump three-vessel CABG on 01/25/2021, hyperthyroidism, borderline diabetes mellitus, hypertension, hyperlipidemia, atrial fibrillation anticoagulated with Eliquis. Her postoperative care following her bypass surgery in January was uneventful, and patient went to [facility] for inpatient rehab after discharge. She has since been readmitted for issues with nausea vomiting diarrhea. Most recently discharged on 03/09/2021. Patient presented to the emergency room yesterday after being seen by her PCP for shortness of breath. Her chest x-ray does reveal bilateral pleural effusions; patient reports she was told to stop her Lasix at the last discharge. She's been without for 2-3 days and reports 5 pound weight gain. EKG reveals sinus rhythm with a left bundle-branch block. Most recent echocardiogram reveals severely impaired left ventricular systolic function with ejection fraction 30-35%. This was February 2021. White count 7.0. Hemoglobin 11.7. Platelets 417. Sodium 139. Potassium 3.7. Creatinine 1.20. Glucose 136. ProBNP 7080. Troponin 0.032. Jin virus not detected. 04/07/2021 Patient is seen and evaluated sitting up in bedside chair; status post thoracentesis; complains of persistent cough and localized pain Vital signs are reviewed and stable with temperature of 97.3, pulse 65, respiration 20 and blood pressure 103 with 68; O2 saturation 98% on room air Chest x-ray reveals bilateral pleural effusion; patient underwent right-sided thoracentesis with removal of 1.1 L of jessy-colored pleural fluid which has been sent for analysis, culture and cytology; post procedure x-ray has been ordered and stable Objective - Vital Signs Vital signs: Vital Signs Temp 97.6 F 04/07/21 08:15 Pulse 82 04/07/21 08:15 Resp 20 04/07/21 08:15 BP 120/71 04/07/21 08:15 Pulse Ox 95 04/07/21 08:15 Intake & Output 04/06/21 04/07/21 04/07/21 18:59 06:59 18:59 Intake Total 780 250 Output Total 350 600 300 Balance 430 -600 -50 Weight 64.8 kg Intake: IV 20 10 Invasive Line 1 20 10 Oral 760 240 Output: Urine 350 600 300 Other: Voiding Method Toilet Toilet # Voids 1 - Exam GENERAL: The patient is alert and oriented x3, not in any acute distress. Well developed, well nourished. HEENT: Pupils are round and equally reacting to light. EOMI. No scleral icterus. No conjunctival pallor. Normocephalic, atraumatic. No pharyngeal erythema. No thyromegaly. CARDIOVASCULAR: S1 and S2 present. No murmurs, rubs, or gallops. PULMONARY: Chest is clear to auscultation, no wheezing or crackles. ABDOMEN: Soft, nontender, nondistended, normoactive bowel sounds. No palpable organomegaly. MUSCULOSKELETAL: No joint swelling or deformity. EXTREMITIES: No cyanosis, clubbing, or pedal edema. NEUROLOGICAL: Gross neurological examination did not reveal any focal deficits. SKIN: No rashes. - Labs CBC & Chem 7: 04/06/21 08:24 04/06/21 08:24 Assessment and Plan Assessment: 1. Acute hypoxic respiratory failure; multifactorial; pleural effusion/CHF; O2 per nasal cannula; titrate to keep FiO2 greater than 90% 2. Acute exacerbation systolic CHF/ischemic cardiomyopathy; Lasix 40 mg IV every 12 hours; monitor strict RANDA's and daily weights; low-salt and fluid restricted diet; consult cardiology; patient does have EF of 30-35% 3. Bilateral pleural effusion; patient has been placed on Lasix 40 mg IV every 12 hours 4. Coronary artery disease/ischemic cardiomyopathy; status post off-pump CABG 3 with a WESLEY to the LAD, left radial artery graft to the up to his marginal, reverse SVG to the posterior lateral branch of the right coronary artery, and exclusion of the left atrial appendage on 01/25/2021; EF 30-35% 5. Paroxysmal atrial fibrillation; patient remains rate controlled on amiodarone with anticoagulation with Eliquis 6. Hypertension; metoprolol 25 mg daily, lisinopril 5 mg daily, Lasix 40 mg IV every 12 hours 7. Hyperlipidemia; Lipitor 40 mg by mouth daily at bedtime DVT prophylaxis; SCDs/systemic anticoagulation CODE STATUS; full code
[2021-04-07 16:46] LABS: Glucose,Whole Blood 191 mg/dL (75-99)
[2021-04-07] MEDS ORDERED: MORPHINE SULFATE 2 MG/ML SYRINGE IVP PRN (18:47)
[2021-04-07] MEDS: ONDANSETRON 4 MG/2 ML VIAL IVP PRN (19:01)
[2021-04-07] MEDS: ATORVASTATIN 40 MG TAB PO SCH (20:11)
[2021-04-07] MEDS: MELATONIN 5 MG TABLET PO SCH (20:11)
[2021-04-07] MEDS: AMITRIPTYLINE HCL 10 MG TAB PO SCH (20:11)
[2021-04-07 20:43] LABS: Glucose, BF Source Pleural Fluid; Glucose, Body Fluid 129 mg/dL; LDH, Body Fluid Source Pleural Fluid; Total Protein, Body Fluid 4730 mg/dL
[2021-04-07 20:57] LABS: Glucose,Whole Blood 130 mg/dL (75-99)
[2021-04-08] MEDS: SODIUM CHLORIDE 0.9% 1,000 ML IV SCH (02:18)
[2021-04-08] MEDS: FUROSEMIDE 10 MG/ML 4 ML VIAL IV SCH (04:04)
[2021-04-08] MEDS: PANTOPRAZOLE 40 MG TABLET PO SCH (05:43)
[2021-04-08 06:17] LABS: Glucose,Whole Blood 121 mg/dL (75-99)
[2021-04-08] MEDS: methIMAzole 5 MG TAB PO SCH (08:42)
[2021-04-08] MEDS: lisinopriL 5 MG TAB PO SCH (08:43)
[2021-04-08] MEDS: CHOLECALCIFEROL 25 MCG (1000 IU) TABLET PO SCH (08:43)
[2021-04-08] MEDS: SERTRALINE 100 MG TAB PO SCH (08:43)
[2021-04-08] MEDS: ALPRAZolam 1 MG TAB PO SCH ×2 (08:43→20:28)
[2021-04-08] MEDS: buPROPion 75 MG TAB PO SCH (08:43)
[2021-04-08] MEDS: AMIODARONE 200 MG TAB PO SCH (08:43)
[2021-04-08] MEDS: METOPROLOL TARTRATE 25 MG TAB PO SCH (08:43)
[2021-04-08] MEDS: LOSARTAN 25 MG TAB PO SCH (08:43)
[2021-04-08 08:56] LABS: Calcium 8.7 mg/dL (8.4-10.2); Potassium 3.9 mmol/L (3.5-5.1)
--- NOTE | 2021-04-08 09:29 | P.PN ---
Subjective Progress Note Date: 04/08/21 This is a very pleasant 76-year-old female patient who follows with Dr. Florentino as her primary care provider. She has a history of non-ST elevated myocardial infarction, coronary artery disease, requiring off-pump three-vessel CABG on 01/25/2021, hyperthyroidism, borderline diabetes mellitus, hypertension, hyperlipidemia, history of breast cancer status post right mastectomy with chemotherapy, diverticulitis status post colostomy and subsequent reversal, and previous history of smoking, atrial fibrillation anticoagulated with Eliquis. Her postoperative care following her bypass surgery in January was uneventful, and patient went to [facility] for inpatient rehab after discharge. She has since been readmitted for issues with nausea vomiting diarrhea. Most recently discharged on 03/09/2021. She represented to year to the emergency room yesterday after being seen by her PCP for shortness of breath. Her chest x-ray does reveal bilateral pleural effusions and we're consulted for the same. She states she was told to stop her Lasix at the last discharge. She's been without for 2-3 days. She states she's gained 5 pounds. More short of breath. More lower extremity edema. EKG reveals sinus rhythm with a left bundle-branch block. Most recent echocardiogram reveals severely impaired left ventricular systolic function with ejection fraction 30-35%. This was February 2021. White count 7.0. Hemoglobin 11.7. Platelets 417. Sodium 139. Potassium 3.7. Creatinine 1.20. Glucose 136. ProBNP 7080. Troponin 0.032. Jin virus not detected. She is seen today in consultation on the selective care unit. She is currently sitting up in a chair at the bedside. Aw perla and alert in no acute distress. Maintaining O2 saturation in the mid to upper 90s on 2 L/m per nasal cannula. Afebrile. Hemodynamically stable. She has been initiated on IV diuretics. She is anticoagulated with Eliquis. The patient is seen today 04/06/2021 in follow-up on the selective care unit. She is currently sitting up in a chair at the bedside. Awake and alert in no acute distress. Breathing a bit easier today compared to yesterday. Ultrasound of the chest reveals a right-sided pleural effusion pocket size 7.3 cm, left pleural effusion pocket size 7.4 cm. The patient is quite reluctant to have a thoracentesis performed. We'll repeat a chest x-ray in the a.m. She remains on IV Lasix 40 mg every 12 hours. She is maintaining good O2 saturations in the 90s on room air. White count 6.4. Hemoglobin 12.0. Sodium 138. Potassium 4.1. Creatinine 1.20. Glucose 162. On 04/07/2021 patient seen in follow-up on selective care unit, she is oriented, in no acute distress, she is sitting in the chair, she is on room air, with pulse ox of 92-93%, she does desaturate with any exertion. Afebrile, no chest pain. Only occasional cough. Her chest ultrasound from 2 days ago showed right pleural effusion pocket of 7.3 cm, and left pleural effusion pocket of 7.4 cm. Her proBNP was elevated at 7080, she was negative for COVID-19, as no leukocytosis on her blood work, no fever or chills. Patient has been on Lasix 40 mg twice daily, she has been remaining in negative fluid balance. Today she underwent right-sided thoracentesis would removal of 1.[address] L of jessy colored pl eural fluid which was sent for pleural fluid analysis, cultures and cytology. Patient tolerated procedure very well, postprocedure chest x-ray showed moderate bilateral pleural effusion decreased in size on the right is stable on the left no pneumothorax. On 04/08/2021, the patient is being seen in a FU. The patient underwent thoracentesis yesterday and the patient tolerated the procedure well. Follow-up chest x-rays showing still bilateral pleural effusion, residual and the patient is still requiring oxygen to maintain saturation above 90%. Reveals a look in the pleural fluid revealed that the pleural fluid itself was an exudate based on the protein criteria with a total protein of 4.7, LDH was low. The patient is started on diuretics with Lasix 40 mg IV every 12 hours. Note that the chest x- ray postthoracentesis showed no major improvement in the amount of pleural effusions. The fluid itself on the right seems to be more so loculated. The patient did encounter some increased pain during thoracentesis and total amount of fluid removed from the right lung was in order of 1.1 L. I believe this is a exudate. She is sitting up on a chair. She seems to be comfortable at this point in time. Her labs from today is showing a creatinine of 1.4 which is slightly higher compared to yesterday. BUN is at 23. Sodium level is at 132. The oxygen flow currently is on 2 L to maintain a saturation at 92%. Subsequently, she was also placed on room air oxygen. Objective - Vital Signs Vital signs: Vital Signs Temp 98.1 F 04/08/21 04:00 Pulse 60 04/08/21 04:00 Resp 20 04/08/21 04:00 BP 94/55 04/08/21 04:00 Pulse Ox 92 L 04/08/21 04:00 Intake & Output 04/07/21 04/08/21 04/08/21 18:59 06:59 18:59 Intake Total 1360 180 Output Total 2080 100 Balance -720 80 Intake: IV 20 Invasive Line 1 20 Oral 1340 180 Output: Drainage 1180 Right Posterior Chest 1180 Urine 900 100 Other: Voiding Method Toilet Toilet # Voids 1 1 - Exam GENERAL EXAM: Alert, pleasant, 76-year-old white female, on room air with pulse ox of 92%, comfortable in no apparent distress. HEAD: Normocephalic/atraumatic. EYES: Normal reaction of pupils, equal size. Conjunctiva pink, sclera white. NOSE: Clear with pink turbinates. THROAT: No erythema or exudates. NECK: No masses, no JVD, no thyroid enlargement, no adenopathy. CHEST: No chest wall deformity. Symmetrical expansion. LUNGS: Equal air entry with diminished breath sounds at bilateral bases, with crackles CVS: Regular rate and rhythm, normal S1 and S2, no gallops, no murmurs, no rubs ABDOMEN: Soft, nontender. No hepatosplenomegaly, normal bowel sounds, no guarding or rigidity. EXTREMITIES: No clubbing, no edema, no cyanosis, 2+ pulses and upper and lower extremities. MUSCULOSKELETAL: Muscle strength and tone normal. SPINE: No scoliosis or deformity SKIN: No rashes CENTRAL NERVOUS SYSTEM: Alert and oriented -3. No focal deficits, tone is normal in all 4 extremities. PSYCHIATRIC: Alert and oriented -3. Appropriate affect. Intact judgment and insight. - Labs CBC & Chem 7: 04/06/21 08:24 04/08/21 07:27 Labs: Abnormal Lab Results - Last 24 Hours (Table) 04/07/21 04/07/21 04/07/21 Range/Units 11:52 16:43 20:32 Sodium (137-145) mmol/L BUN (7-17) mg/dL Creatinine (0.52-1.04) mg/dL Glucose (74-99) mg/dL POC Glucose (mg/dL) 116 H 191 H 130 H (75-99) mg/dL 04/08/21 04/08/21 Range/Units 05:53 07:27 Sodium 132 L (137-145) mmol/L BUN 23 H (7-17) mg/dL Creatinine 1.48 H (0.52-1.04) mg/dL Glucose 105 H (74-99) mg/dL POC Glucose (mg/dL) 121 H (75-99) mg/dL Microbiology - Last 24 Hours (Table) 04/07/21 11:47 Gram Stain - Preliminary Pleural Fluid Body Fluid Culture - Preliminary Assessment and Plan Plan: #1. Acute hypoxic respiratory failure secondary to acute exacerbation of chronic CHF with systolic dysfunction in bilateral pleural effusions, status post right-sided thoracentesis on 04/07/2021 with removal of 1.1 L of jessy- colored pleural fluid which was sent for pleural fluid analysis, cytology and cultures. The fluid itself seems to be an exudate based on the protein criteria. Consider possibility of a post thoracotomy related pleural effusion. The chest x-ray still showing residual bilateral pleural effusion and the patient remains on diuretics. Also, the patient had a follow-up chest x-ray that showed residual pleural effusion, somewhat loculated on the right. A CAT scan will be of value to assess the extent of atelectasis/versus effusion and decide if further drainage is needed. #2. Recent hospitalization in February 2021 for acute exacerbation of systolic CHF, and at that time patient also had bilateral pleural effusions that were sm all was treated medically #3. Coronary artery disease status post off-pump coronary artery bypass grafting 3 with a WESLEY to the LAD, left radial arterial graft to the obtuse marginal, and reverse SVG to the posterior branch of the RCA and exclusion of the left atrial appendage on 01/25/2021 #4. Ischemic cardiomyopathy with ejection fraction of 30-35% #5. Paroxysmal atrial fibrillation on amiodarone, and Eliquis, currently in sinus mechanism #6. Hypertension #7. Hyperlipidemia #8. Former tobacco smoker #9. History of diverticulitis status post bowel resection, colostomy and subse quent reversal Plan: Patient tolerated right-sided thoracentesis very well, postprocedure there is no evidence of pneumothorax Patient may need left-sided thoracentesis tomorrow Noncontrast computed tomography scan of the chest Pleural fluid was sent for analysis, cultures and cytology, the protein in the fluid is elevated and there is a suspicion for an exudate In the meantime continue with diuretics and medical management Changes related to 40 mg by mouth daily. The creatinine is higher compared to yesterday. We'll continue to follow
--- NOTE | 2021-04-08 10:18 | CT ---
EXAMINATION TYPE: CT chest wo con DATE OF EXAM: 04/08/2021 COMPARISON: January 22, 2021 HISTORY: Bilateral pleural effusion, dyspnea CT DLP: [address] of the chest was performed with lung and mediastinal window settings submitted. The la ck of contrast limits evaluation of the vascular, mediastinal and parenchymal structures including th e upper abdomen. LUNGS: Bilateral pleural effusions noted measuring 3.4 cm AP dimension on the right and 3.1 cm on the left. Intrafissural component on the left noted. Basilar compressive atelectasis seen. MEDIASTINUM/ADDY: Thoracic aorta is of normal caliber with limited evaluation given lack of contrast . The heart is not enlarged. No evidence for mediastinal mass. No lymph nodes greater than 1cm. UPPER ABDOMEN: No significant abnormality is seen. OTHER: No significant other abnormality. IMPRESSION: 1. Bilateral pleural effusions measuring moderate in degree. As noted there is component within the left major fissure. Basilar compressive atelectasis noted.
[2021-04-08] MEDS: ONDANSETRON 4 MG/2 ML VIAL IVP PRN (10:19)
--- NOTE | 2021-04-08 11:47 | P.PN ---
Subjective HISTORY OF PRESENT ILLNESS: This is a 76-year-old female, patient of Dr. Hess, with a history of congestive heart failure, coronary artery disease with recent CABG 3 01/25/21, ischemic cardiomyopathy, paroxysmal atrial fibrillation, hypertension, and hyperlipidemia. Patient is admitted to the hospital secondary to shortness of breath. She was found to have a pleural effusion s/p thoracentesis with 1100mL removed on 04/07/21. She has been treated for acute exacerbation of heart failure. Patient seen and examined at bedside, no acute distress. She states her breathing has still not improved. Overall she states she is not doing any better. She underwent CT chest today which revealed bilateral pleural effusions measuring moderate degree, and intrafissural component on the left noted. Basilar compressive atelectasis note. laboratory data reviewed, sodium 132, potassium 3.9, BUN 23, serum creatinine 1.48. She's currently maintained on Lasix 40 mg by mouth daily, amiodarone 200 mg daily, atorvastatin 40 mg nightly, lisinopril 5 mg daily, losartan 25 mg daily, metoprolol tartrate 25 mg daily. Telemetry reviewed patient maintaining sinus mechanism heart rates 5580s. Patient with 2 L urine output over the past 24 hours. PHYSICAL EXAM: VITAL SIGNS: Blood pressure 95/57, heart rate 80, afebrile, maintaining oxygen sats on 2 L nasal cannula GENERAL: Well-developed in no acute distress. NECK: Supple. No JVD or thyromegaly LUNGS: Respirations even and unlabored. Lungs diminished to auscultation bilaterally. HEART: Regular rate and rhythm. S1 and S2 heard. EXTREMITIES: Normal range of motion. No clubbing or cyanosis. Peripheral pulses intact. No lower extremity edema ASSESSMENT: Acute exacerbation of chronic systolic congestive heart failure Bilateral pleural effusions Status post thoracentesis right 1100mL removed on 04/07/21 Coronary artery disease with recent CABG 3 on 01/25/21 Ischemic cardiomyopathy EF 30-35% Paroxysmal atrial fibrillation on Eliquisi Hypertension Hyperlipidemia Former tobacco use Acute on chronic kidney disease PLAN: Continue PO lasix 40mg daily Eliquis remains on hold for possible thoracentesis of left per pulmonary Continue amiodarone, atorvastatin, lisinopril, losartan, metoprolol tartrate Monitor kidney function Daily weights, Accurate I&O Further recommendations pending patient's course Objective - Vital Signs Vital signs: Vital Signs Temp 97.9 F 04/08/21 08:00 Pulse 80 04/08/21 08:00 Resp 20 04/08/21 08:00 BP 95/57 04/08/21 08:00 Pulse Ox 97 04/08/21 08:00 Intake & Output 04/07/21 04/08/21 04/08/21 18:59 06:59 18:59 Intake Total 1360 180 Output Total 2080 100 Balance -720 80 Intake: IV 20 Invasive Line 1 20 Oral 1340 180 Output: Drainage 1180 Right Posterior Chest 1180 Urine 900 100 Other: Voiding Method Toilet Toilet Toilet # Voids 1 1 - Labs CBC & Chem 7: 04/06/21 08:24 04/08/21 07:27 Labs: Abnormal Lab Results - Last 24 Hours (Table) 04/07/21 04/07/21 04/07/21 Range/Units 11:52 16:43 20:32 Sodium (137-145) mmol/L BUN (7-17) mg/dL Creatinine (0.52-1.04) mg/dL Glucose (74-99) mg/dL POC Glucose (mg/dL) 116 H 191 H 130 H (75-99) mg/dL 04/08/21 04/08/21 Range/Units 05:53 07:27 Sodium 132 L (137-145) mmol/L BUN 23 H (7-17) mg/dL Creatinine 1.48 H (0.52-1.04) mg/dL Glucose 105 H (74-99) mg/dL POC Glucose (mg/dL) 121 H (75-99) mg/dL Microbiology - Last 24 Hours (Table) 04/07/21 11:47 Gram Stain - Preliminary Pleural Fluid Body Fluid Culture - Preliminary
[2021-04-08 11:52] LABS: Glucose,Whole Blood 156 mg/dL (75-99)
--- NOTE | 2021-04-08 12:30 | XR ---
EXAMINATION TYPE: XR chest 2V DATE OF EXAM: 04/08/2021 COMPARISON: 04/07/2021 HISTORY: Pleural effusion TECHNIQUE: Frontal and lateral views of the chest are obtained. FINDINGS: Bilateral pleural effusions appear similar to the prior examination. Cardiac silhouette is unchanged. IMPRESSION: Bilateral pleural effusions appear similar to the prior examination.
[2021-04-08 17:02] LABS: Glucose,Whole Blood 139 mg/dL (75-99)
--- NOTE | 2021-04-08 17:49 | P.PN ---
Subjective Principal diagnosis: Acute hypoxic respiratory failure Acute exacerbation systolic CHF Bilateral pleural effusions 76-year-old female patient, history of non-ST elevated myocardial infarction, coronary artery disease, requiring off-pump three-vessel CABG on 01/25/2021, hyperthyroidism, borderline diabetes mellitus, hypertension, hyperlipidemia, atrial fibrillation anticoagulated with Eliquis. Her postoperative care following her bypass surgery in January was uneventful, and patient went to [facility] for inpatient rehab after discharge. She has since been readmitted for issues with nausea vomiting diarrhea. Most recently discharged on 03/09/2021. Patient presented to the emergency room yesterday after being seen by her PCP for shortness of breath. Her chest x-ray does reveal bilateral pleural effusions; patient reports she was told to stop her Lasix at the last discharge. She's been without for 2-3 days and reports 5 pound weight gain. EKG reveals sinus rhythm with a left bundle-branch block. Most recent echocardiogram reveals severely impaired left ventricular systolic function with ejection fraction 30-35%. This was February 2021. White count 7.0. Hemoglobin 11.7. Platelets 417. Sodium 139. Potassium 3.7. Creatinine 1.20. Glucose 136. ProBNP 7080. Troponin 0.032. Jin virus not detected. 04/07/2021 Patient is seen and evaluated sitting up in bedside chair; status post thoracentesis; complains of persistent cough and localized pain Vital signs are reviewed and stable with temperature of 97.3, pulse 65, respiration 20 and blood pressure 103 with 68; O2 saturation 98% on room air Chest x-ray reveals bilateral pleural effusion; patient underwent right-sided thoracentesis with removal of 1.1 L of jessy-colored pleural fluid which has been sent for analysis, culture and cytology; post procedure x-ray has been ordered and stable 04/08/2021 patient is seen and evaluated sitting up in bedside chair; underwent thoracentesis yesterday and the patient tolerated the procedure well. chest x-rays showing still bilateral pleural effusion, residual and the patient is still requiring oxygen to maintain saturation above 90%. pleural fluid revealed that the pleural fluid itself was an exudate based on the protein criteria with a total protein of 4.7, LDH was low. The patient is started on diuretics with Lasix 40 mg IV every 12 hours. Note that the chest x-ray postthoracentesis showed no major improvement in the amount of pleural effusions. The fluid itself on the right seems to be more so loculated. The patient did encounter some increased pain during thoracentesis and total amount of fluid removed from the right lung was in order of 1.1 L. I believe this is a exudate. labs from today is showing a creatinine of 1.4 which is slightly higher compared to yesterday. BUN is at 23. Sodium level is at 132. pulmonary recommending possible left-sided thoracentesis tomorrow Objective - Vital Signs Vital signs: Vital Signs Temp 97.6 F 04/08/21 12:00 Pulse 80 04/08/21 12:00 Resp 16 04/08/21 12:00 BP 92/62 04/08/21 12:00 Pulse Ox 92 L 04/08/21 12:00 Intake & Output 04/07/21 04/08/21 04/08/21 18:59 06:59 18:59 Intake Total 1360 180 Output Total 2080 100 Balance -720 80 Intake: IV 20 Invasive Line 1 20 Oral 1340 180 Output: Drainage 1180 Right Posterior Chest 1180 Urine 900 100 Other: Voiding Method Toilet Toilet Toilet # Voids 1 1 - Exam GENERAL: The patient is alert and oriented x3, not in any acute distress. Well developed, well nourished. HEENT: Pupils are round and equally reacting to light. EOMI. No scleral icterus. No conjunctival pallor. Normocephalic, atraumatic. No pharyngeal erythema. No thyromegaly. CARDIOVASCULAR: S1 and S2 present. No murmurs, rubs, or gallops. PULMONARY: Chest is clear to auscultation, no wheezing or crackles. ABDOMEN: Soft, nontender, nondistended, normoactive bowel sounds. No palpable organomegaly. MUSCULOSKELETAL: No joint swelling or deformity. EXTREMITIES: No cyanosis, clubbing, or pedal edema. NEUROLOGICAL: Gross neurological examination did not reveal any focal deficits. SKIN: No rashes. - Labs CBC & Chem 7: 04/06/21 08:24 04/08/21 07:27 Labs: Abnormal Lab Results - Last 24 Hours (Table) 04/07/21 04/07/21 04/08/21 Range/Units 16:43 20:32 05:53 Sodium (137-145) mmol/L BUN (7-17) mg/dL Creatinine (0.52-1.04) mg/dL Glucose (74-99) mg/dL POC Glucose (mg/dL) 191 H 130 H 121 H (75-99) mg/dL 04/08/21 04/08/21 Range/Units 07:27 11:47 Sodium 132 L (137-145) mmol/L BUN 23 H (7-17) mg/dL Creatinine 1.48 H (0.52-1.04) mg/dL Glucose 105 H (74-99) mg/dL POC Glucose (mg/dL) 156 H (75-99) mg/dL Microbiology - Last 24 Hours (Table) 04/07/21 11:47 Gram Stain - Preliminary Pleural Fluid Body Fluid Culture - Preliminary Assessment and Plan Assessment: 1. Acute hypoxic respiratory failure; multifactorial; pleural effusion/CHF; O2 per nasal cannula; titrate to keep FiO2 greater than 90% 2. Acute exacerbation systolic CHF/ischemic cardiomyopathy; Lasix 40 mg IV every 12 hours; monitor strict RANDA's and daily weights; low-salt and fluid restricted diet; consult cardiology; patient does have EF of 30-35% 3. Bilateral pleural effusion; patient has been placed on Lasix 40 mg IV every 12 hours 4. Coronary artery disease/ischemic cardiomyopathy; status post off-pump CABG 3 with a WESLEY to the LAD, left radial artery graft to the up to his marginal, reverse SVG to the posterior lateral branch of the right coronary artery, and exclusion of the left atrial appendage on 01/25/2021; EF 30-35% 5. Paroxysmal atrial fibrillation; patient remains rate controlled on amiodarone with anticoagulation with Eliquis 6. Hypertension; metoprolol 25 mg daily, lisinopril 5 mg daily, Lasix 40 mg IV every 12 hours 7. Hyperlipidemia; Lipitor 40 mg by mouth daily at bedtime DVT prophylaxis; SCDs/systemic anticoagulation CODE STATUS; full code
[2021-04-08 20:11] LABS: Glucose,Whole Blood 161 mg/dL (75-99)
[2021-04-08] MEDS: MELATONIN 5 MG TABLET PO SCH (20:28)
[2021-04-08] MEDS: AMITRIPTYLINE HCL 10 MG TAB PO SCH (20:28)
[2021-04-08] MEDS: ACETAMINOPHEN TAB 325 MG TAB PO PRN (20:29)
[2021-04-08] MEDS: ATORVASTATIN 40 MG TAB PO SCH (20:29)
[2021-04-09 06:08] LABS: Glucose,Whole Blood 116 mg/dL (75-99)
[2021-04-09] MEDS: PANTOPRAZOLE 40 MG TABLET PO SCH (06:34)
[2021-04-09 07:22] LABS: Basophils % (A) 1 %; Eosinophils # (A) 0.3 k/uL (0-0.7); Eosinophils % (A) 6 %; HCT 35.3 % (34.0-46.0); Hypochromasia Slight; Lymphocytes # (A) 0.7 k/uL (1.0-4.8); Lymphocytes % (A) 14 %; MCH 24.8 pg (25.0-35.0); MCHC 31.2 g/dL (31.0-37.0); MCV 79.6 fL (80.0-100.0); Mean Platelet Volume 7.3; Monocytes # (A) 0.3 k/uL (0-1.0); Monocytes % (A) 6 %; Neutrophils # (A) 3.7 k/uL (1.3-7.7); Neutrophils % (A) 72 %; Platelet Count 287 k/uL (150-450); RBC 4.43 m/uL (3.80-5.40); RDW 14.9 % (11.5-15.5); WBC 5.1 k/uL (3.8-10.6)
--- NOTE | 2021-04-09 07:22 | XR ---
EXAMINATION TYPE: XR chest 1V portable DATE OF EXAM: 04/09/2021 Comparison: 04/08/2021 Clinical History: 76-year-old female with shortness of breath, dyspnea Findings: Heart margin is partially obscured by adjacent pleural parenchymal opacity. Continued moderate bilate ral pleural effusions with lower lung opacities. Post-CABG clips in the mediastinum. Impression: Similar moderate bilateral pleural effusions with adjacent atelectasis and/or consolidation.
[2021-04-09 07:37] LABS: Albumin 2.9 g/dL (3.5-5.0); Calcium 8.6 mg/dL (8.4-10.2); Potassium 3.5 mmol/L (3.5-5.1); Total Bilirubin 0.2 mg/dL (0.2-1.3); Total Protein 5.5 g/dL (6.3-8.2)
[2021-04-09] MEDS: lisinopriL 5 MG TAB PO SCH (08:43)
[2021-04-09] MEDS: LOSARTAN 25 MG TAB PO SCH (08:43)
[2021-04-09] MEDS: SERTRALINE 100 MG TAB PO SCH (08:43)
[2021-04-09] MEDS: buPROPion 75 MG TAB PO SCH (08:43)
[2021-04-09] MEDS: CHOLECALCIFEROL 25 MCG (1000 IU) TABLET PO SCH (08:43)
[2021-04-09] MEDS: methIMAzole 5 MG TAB PO SCH (08:43)
[2021-04-09] MEDS: FUROSEMIDE 40 MG TAB PO SCH (08:43)
[2021-04-09] MEDS: ALPRAZolam 1 MG TAB PO SCH ×2 (08:43→19:54)
[2021-04-09] MEDS: AMIODARONE 200 MG TAB PO SCH (08:43)
[2021-04-09] MEDS: METOPROLOL TARTRATE 25 MG TAB PO SCH (08:44)
--- NOTE | 2021-04-09 11:25 | P.PN ---
Subjective Progress Note Date: 04/09/21 This is a very pleasant 76-year-old female patient who follows with Dr. Florentino as her primary care provider. She has a history of non-ST elevated myocardial infarction, coronary artery disease, requiring off-pump three-vessel CABG on 01/25/2021, hyperthyroidism, borderline diabetes mellitus, hypertension, hyperlipidemia, history of breast cancer status post right mastectomy with chemotherapy, diverticulitis status post colostomy and subsequent reversal, and previous history of smoking, atrial fibrillation anticoagulated with Eliquis. Her postoperative care following her bypass surgery in January was uneventful, and patient went to [facility] for inpatient rehab after discharge. She has since been readmitted for issues with nausea vomiting diarrhea. Most recently discharged on 03/09/2021. She represented to year to the emergency room yesterday after being seen by her PCP for shortness of breath. Her chest x-ray does reveal bilateral pleural effusions and we're consulted for the same. She states she was told to stop her Lasix at the last discharge. She's been without for 2-3 days. She states she's gained 5 pounds. More short of breath. More lower extremity edema. EKG reveals sinus rhythm with a left bundle-branch block. Most recent echocardiogram reveals severely impaired left ventricular systolic function with ejection fraction 30-35%. This was February 2021. White count 7.0. Hemoglobin 11.7. Platelets 417. Sodium 139. Potassium 3.7. Creatinine 1.20. Glucose 136. ProBNP 7080. Troponin 0.032. Jin virus not detected. She is seen today in consultation on the selective care unit. She is currently sitting up in a chair at the bedside. Aw perla and alert in no acute distress. Maintaining O2 saturation in the mid to upper 90s on 2 L/m per nasal cannula. Afebrile. Hemodynamically stable. She has been initiated on IV diuretics. She is anticoagulated with Eliquis. The patient is seen today 04/06/2021 in follow-up on the selective care unit. She is currently sitting up in a chair at the bedside. Awake and alert in no acute distress. Breathing a bit easier today compared to yesterday. Ultrasound of the chest reveals a right-sided pleural effusion pocket size 7.3 cm, left pleural effusion pocket size 7.4 cm. The patient is quite reluctant to have a thoracentesis performed. We'll repeat a chest x-ray in the a.m. She remains on IV Lasix 40 mg every 12 hours. She is maintaining good O2 saturations in the 90s on room air. White count 6.4. Hemoglobin 12.0. Sodium 138. Potassium 4.1. Creatinine 1.20. Glucose 162. On 04/07/2021 patient seen in follow-up on selective care unit, she is oriented, in no acute distress, she is sitting in the chair, she is on room air, with pulse ox of 92-93%, she does desaturate with any exertion. Afebrile, no chest pain. Only occasional cough. Her chest ultrasound from 2 days ago showed right pleural effusion pocket of 7.3 cm, and left pleural effusion pocket of 7.4 cm. Her proBNP was elevated at 7080, she was negative for COVID-19, as no leukocytosis on her blood work, no fever or chills. Patient has been on Lasix 40 mg twice daily, she has been remaining in negative fluid balance. Today she underwent right-sided thoracentesis would removal of 1.[address] of jessy colored pl eural fluid which was sent for pleural fluid analysis, cultures and cytology. Patient tolerated procedure very well, postprocedure chest x-ray showed moderate bilateral pleural effusion decreased in size on the right is stable on the left no pneumothorax. On 04/08/2021, the patient is being seen in a FU. The patient underwent thoracentesis yesterday and the patient tolerated the procedure well. Follow-up chest x-rays showing still bilateral pleural effusion, residual and the patient is still requiring oxygen to maintain saturation above 90%. Reveals a look in the pleural fluid revealed that the pleural fluid itself was an exudate based on the protein criteria with a total protein of 4.7, LDH was low. The patient is started on diuretics with Lasix 40 mg IV every 12 hours. Note that the chest x- ray postthoracentesis showed no major improvement in the amount of pleural effusions. The fluid itself on the right seems to be more so loculated. The patient did encounter some increased pain during thoracentesis and total amount of fluid removed from the right lung was in order of 1.1 L. I believe this is a exudate. She is sitting up on a chair. She seems to be comfortable at this point in time. Her labs from today is showing a creatinine of 1.4 which is slightly higher compared to yesterday. BUN is at 23. Sodium level is at 132. The oxygen flow currently is on 2 L to maintain a saturation at 92%. Subsequently, she was also placed on room air oxygen. 04/09/2021, the patient is being seen for a follow-up. The patient remains in oxygen at 2 L per minute nasal cannula. A computed tomography scan of the chest was done yesterday and the chest CAT scan showed bilateral pleural effusion with some atelectasis in lung bases and some early of ventilation on the right. B ased on this, a bedside thoracentesis was done and out of town 50 mL of pleural fluid was aspirated from the right lung. This was in a state based on a previous evaluation. The patient tolerated the procedure well. I believe that she will benefit ultimately from an IR guided thoracentesis bilaterally with residual pleural fluid. he blood work shows a white cell count of 5.1 with a hemoglobin of 11, creatinine was at 1.32 and the sodium level is at 133 with a potassium level of 3.5. LFTs are essentially within normal limits. Objective - Vital Signs Vital signs: Vital Signs Temp 97.9 F 04/09/21 06:32 Pulse 68 04/09/21 06:32 Resp 16 04/09/21 06:32 BP 90/46 04/09/21 06:32 Pulse Ox 92 L 04/09/21 06:32 Intake & Output 04/08/21 04/09/21 04/09/21 18:59 06:59 18:59 Intake Total 500 240 Output Total 200 50 300 Balance 300 -50 -60 Weight 66.2 kg Intake: Oral 500 240 Output: Urine 200 50 300 Other: Voiding Method Toilet Toilet # Voids 1 # Bowel Movements 1 - Exam GENERAL EXAM: Alert, pleasant, 76-year-old white female, on room air with pulse ox of 92%, comfortable in no apparent distress. HEAD: Normocephalic/atraumatic. EYES: Normal reaction of pupils, equal size. Conjunctiva pink, sclera white. NOSE: Clear with pink turbinates. THROAT: No erythema or exudates. NECK: No masses, no JVD, no thyroid enlargement, no adenopathy. CHEST: No chest wall deformity. Symmetrical expansion. LUNGS: Equal air entry with diminished breath sounds at bilateral bases, with crackles CVS: Regular rate and rhythm, normal S1 and S2, no gallops, no murmurs, no rubs ABDOMEN: Soft, nontender. No hepatosplenomegaly, normal bowel sounds, no guarding or rigidity. EXTREMITIES: No clubbing, no edema, no cyanosis, 2+ pulses and upper and lower extremities. MUSCULOSKELETAL: Muscle strength and tone normal. SPINE: No scoliosis or deformity SKIN: No rashes CENTRAL NERVOUS SYSTEM: Alert and oriented -3. No focal deficits, tone is normal in all 4 extremities. PSYCHIATRIC: Alert and oriented -3. Appropriate affect. Intact judgment and insight. - Labs CBC & Chem 7: 04/09/21 06:56 04/09/21 06:56 Labs: Abnormal Lab Results - Last 24 Hours (Table) 04/08/21 04/08/21 04/08/21 Range/Units 11:47 17:00 20:09 Hgb (11.4-16.0) gm/dL MCV (80.0-100.0) fL MCH (25.0-35.0) pg Lymphocytes # (1.0-4.8) k/uL Sodium (137-145) mmol/L BUN (7-17) mg/dL Creatinine (0.52-1.04) mg/dL Glucose (74-99) mg/dL POC Glucose (mg/dL) 156 H 139 H 161 H (75-99) mg/dL Total Protein (6.3-8.2) g/dL Albumin (3.5-5.0) g/dL 04/09/21 04/09/21 04/09/21 Range/Units 06:06 06:56 06:56 Hgb 11.0 L (11.4-16.0) gm/dL MCV 79.6 L (80.0-100.0) fL MCH 24.8 L (25.0-35.0) pg Lymphocytes # 0.7 L (1.0-4.8) k/uL Sodium 133 L (137-145) mmol/L BUN 22 H (7-17) mg/dL Creatinine 1.32 H (0.52-1.04) mg/dL Glucose 116 H (74-99) mg/dL POC Glucose (mg/dL) 116 H (75-99) mg/dL Total Protein 5.5 L (6.3-8.2) g/dL Albumin 2.9 L (3.5-5.0) g/dL Microbiology - Last 24 Hours (Table) 04/07/21 11:47 Gram Stain - Preliminary Pleural Fluid Body Fluid Culture - Preliminary Assessment and Plan Plan: #1. Acute hypoxic respiratory failure secondary to acute exacerbation of chronic CHF with systolic dysfunction in bilateral pleural effusions, status post right-sided thoracentesis on 04/07/2021 with removal of 1.1 L of jessy-colo red pleural fluid which was sent for pleural fluid analysis, cytology and cultures. The fluid itself seems to be an exudate based on the protein criteria. Consider possibility of a post thoracotomy related pleural effusion. The chest x-ray still showing residual bilateral pleural effusion and the patient remains on diuretics. A computed tomography scan of the chest was also done and it showed bilateral pleural effusion with somewhat loculation on the right and compressive atelectasis in lung bases. The fluid was worse on the right compared to the left. Based on that, I repeated another thoracentesis and removed another 3 mL of pleural fluid from the right lung. Repeat chest x-rays to follow. #2. Recent hospitalization in February 2021 for acute exacerbation of systolic CHF, and at that time patient also had bilateral pleural effusions that were small was treated medically #3. Coronary artery disease status post off-pump coronary artery bypass grafting 3 with a WESLEY to the LAD, left radial arterial graft to the obtuse marginal, and reverse SVG to the posterior branch of the RCA and exclusion of the left atrial appendage on 01/25/2021 #4. Ischemic cardiomyopathy with ejection fraction of 30-35% #5. Paroxysmal atrial fibrillation on amiodarone, and Eliquis, currently in sinus mechanism #6. Hypertension #7. Hyperlipidemia #8. Former tobacco smoker #9. History of diverticulitis status post bowel resection, colostomy and subsequent reversal Plan: Patient tolerated right-sided thoracentesis very well, postprocedure there is no evidence of pneumothorax I repeated the chest thoracentesis on the right and addition 350 mL of fluid was removed Repeat chest x-ray We will analyze the pleural fluid again to distinguish between transudate and exudate. The previous thoracentesis revealed an exudative fluid In the meantime continue with diuretics and medical management Lasix 40 mg by mouth daily. The creatinine is stable for now We'll continue to follow May need home oxygen May need a guided thoracentesis of visit atrial fibrillation of the pleural flu id.
--- NOTE | 2021-04-09 11:26 | P.PCN ---
Date of Procedure: 04/09/21 Preoperative Diagnosis: Pleural effusion, right-sided Postoperative Diagnosis: Pleural effusion, right-sided Implants: Thoracentesis, right-sided Anesthesia: local Surgeon: Hu Glover Estimated Blood Loss (ml): 0 Pathology: other Condition: stable Disposition: floor Operative Findings: A time out was performed and the chest x-ray was reviewed, the appropriate side was confirmed and marked. My hands were washed immediately prior to the procedure. I wore a surgical cap, mask with protective eyewear, sterile gown and sterile gloves throughout the procedure. The patient was prepped and draped in a sterile manner using chlorhexidine scrub after the appropriate level was p ercussed and confirmed by ultrasound. 1% lidocaine was used to anesthesize the skin, subcutaneous tissue, superior aspect of the rib periosteum and parietal pleura. A finder needle was then introduced over the superior aspect of the rib to locate the pleural fluid; 2colored fluid was aspirated at a depth of approximately 2 cm. A 10-blade scalpel was used to kimo the skin at the insertion site. The [id number] needle was then introduced through the skin incision into the pleural space using negative aspiration pressure and the red colometric indicator to confirm appropriate positioning of the needle. The thoracentesis catheter was then threaded without difficulty. 350 ml of turbid colored fluid was removed without difficulty. The catheter was then removed. No immediate complications were noted during the procedure. A post-procedure chest x-ray is pending at the time of this note. The fluid will be sent for studies. Estimated blood loss is 0cc
[2021-04-09 11:34] LABS: Glucose,Whole Blood 114 mg/dL (75-99)
--- NOTE | 2021-04-09 12:06 | P.PN ---
Subjective HISTORY OF PRESENT ILLNESS: This is a 76-year-old female, patient of Dr. Hess, with a history of congestive heart failure, coronary artery disease with recent CABG 3 01/25/21, ischemic cardiomyopathy, paroxysmal atrial fibrillation, hypertension, and hyperlipidemia. Patient is admitted to the hospital secondary to shortness of breath. She was found to have a pleural effusion s/p thoracentesis with 1100mL removed on 04/07/21. She has been treated for acute exacerbation of heart failure. Patient seen and examined at bedside, no acute distress. She states her breathing has improved from yesterday. She states she is feeling much better than yesterday. She underwent CT chest yesterday which revealed bilateral pleural effusions measuring moderate degree, and intrafissural component on the left noted. Basilar compressive atelectasis note. laboratory data reviewed, sodium 133, potassium 3.5, BUN 22, serum creatinine 1.3 to.. She's currently maintained on Lasix 40 mg by mouth daily, amiodarone 200 mg daily, atorvastatin 40 mg nightly, lisinopril 5 mg daily, losartan 25 mg daily, metoprolol tartrate 25 mg daily. Telemetry reviewed patient maintaining sinus mechanism heart rates 5580s. PHYSICAL EXAM: VITAL SIGNS: Blood pressure 90/46, heart 60, afebrile oxygen saturation is 92% on 2 L since cannula GENERAL: Well-developed in no acute distress. NECK: Supple. No JVD or thyromegaly LUNGS: Respirations even and unlabored. Lungs diminished to auscultation bilaterally. HEART: Regular rate and rhythm. S1 and S2 heard. EXTREMITIES: Normal range of motion. No clubbing or cyanosis. Peripheral pulses intact. No lower extremity edema ASSESSMENT: Acute exacerbation of chronic systolic congestive heart failure Bilateral pleural effusions Status post thoracentesis right 1100mL removed on 04/07/21 Coronary artery disease with recent CABG 3 on 01/25/21 Ischemic cardiomyopathy EF 30-35% Paroxysmal atrial fibrillation on Eliquisi Hypertension Hyperlipidemia Former tobacco use Acute on chronic kidney disease PLAN: Continue PO lasix 40mg daily Eliquis remains on hold for possible thoracentesis of left per pulmonary today Continue amiodarone, atorvastatin, lisinopril, losartan, metoprolol tartrate Monitor kidney function Daily weights, Accurate I&O Further recommendations pending patient's course Objective - Vital Signs Vital signs: Vital Signs Temp 97.9 F 10/19/21 06:32 Pulse 68 04/09/21 06:32 Resp 16 04/09/21 06:32 BP 90/46 04/09/21 06:32 Pulse Ox 92 L 04/09/21 06:32 Intake & Output 04/08/21 04/09/21 04/09/21 18:59 06:59 18:59 Intake Total 500 240 Output Total 200 50 300 Balance 300 -50 -60 Weight 66.2 kg Intake: Oral 500 240 Output: Urine 200 50 300 Other: Voiding Method Toilet Toilet # Voids 1 # Bowel Movements 1 - Labs CBC & Chem 7: 04/09/21 06:56 04/09/21 06:56 Labs: Abnormal Lab Results - Last 24 Hours (Table) 04/08/21 04/08/21 04/08/21 Range/Units 11:47 17:00 20:09 Hgb (11.4-16.0) gm/dL MCV (80.0-100.0) fL MCH (25.0-35.0) pg Lymphocytes # (1.0-4.8) k/uL Sodium (137-145) mmol/L BUN (7-17) mg/dL Creatinine (0.52-1.04) mg/dL Glucose (74-99) mg/dL POC Glucose (mg/dL) 156 H 139 H 161 H (75-99) mg/dL Total Protein (6.3-8.2) g/dL Albumin (3.5-5.0) g/dL 04/09/21 04/09/21 04/09/21 Range/Units 06:06 06:56 06:56 Hgb 11.0 L (11.4-16.0) gm/dL MCV 79.6 L (80.0-100.0) fL MCH 24.8 L (25.0-35.0) pg Lymphocytes # 0.7 L (1.0-4.8) k/uL Sodium 133 L (137-145) mmol/L BUN 22 H (7-17) mg/dL Creatinine 1.32 H (0.52-1.04) mg/dL Glucose 116 H (74-99) mg/dL POC Glucose (mg/dL) 116 H (75-99) mg/dL Total Protein 5.5 L (6.3-8.2) g/dL Albumin 2.9 L (3.5-5.0) g/dL Microbiology - Last 24 Hours (Table) 04/07/21 11:47 Gram Stain - Preliminary Pleural Fluid Body Fluid Culture - Preliminary
--- NOTE | 2021-04-09 12:20 | XR ---
EXAMINATION TYPE: XR chest 1V portable DATE OF EXAM: 04/09/2021 Comparison: Earlier today Clinical History: 76-year-old female RIGHT THORACENTESIS Findings: Post-CABG clips. Continued moderate effusion is decreased now on the right. No appreciable pneumothor ax. Heart margins remain partially obscured. Impression: Moderate bilateral effusions with adjacent atelectasis and/or consolidation though decreased now on t he right after thoracentesis. No appreciable pneumothorax.
[2021-04-09 17:00] LABS: Glucose,Whole Blood 178 mg/dL (75-99)
[2021-04-09 17:48] LABS: Appearance,BF Hazy; Color,BF Yellow; RBC, Body Fluid 60 /uL
[2021-04-09 17:49] LABS: Nucleated Cells, Body Fluid 313 /uL
[2021-04-09 17:50] LABS: Mononuclear WBC,Body Fluid 37 %; Polynuclear WBC,Body Fluid 56 %; Total Cells Counted,Body Fluid 100
[2021-04-09] MEDS ORDERED: DOCUSATE 100 MG CAP PO PRN (19:47)
[2021-04-09] MEDS: MELATONIN 5 MG TABLET PO SCH (19:54)
[2021-04-09] MEDS: ATORVASTATIN 40 MG TAB PO SCH (19:54)
[2021-04-09 19:58] LABS: Glucose,Whole Blood 140 mg/dL (75-99)
[2021-04-09] MEDS: AMITRIPTYLINE HCL 10 MG TAB PO SCH (20:25)
[2021-04-10 06:17] LABS: Glucose,Whole Blood 131 mg/dL (75-99)
[2021-04-10] MEDS: PANTOPRAZOLE 40 MG TABLET PO SCH (06:32)
[2021-04-10 06:33] LABS: Glucose, BF Source Pleural Fluid; Glucose, Body Fluid 127 mg/dL; LDH, Body Fluid Source Pleural Fluid; Total Protein, Body Fluid 4520 mg/dL
[2021-04-10] MEDS: ALPRAZolam 1 MG TAB PO SCH (08:10)
[2021-04-10] MEDS: LOSARTAN 25 MG TAB PO SCH (08:10)
[2021-04-10] MEDS: lisinopriL 5 MG TAB PO SCH (08:10)
[2021-04-10] MEDS: AMIODARONE 200 MG TAB PO SCH (08:10)
[2021-04-10] MEDS: CHOLECALCIFEROL 25 MCG (1000 IU) TABLET PO SCH (08:10)
[2021-04-10] MEDS: SERTRALINE 100 MG TAB PO SCH (08:10)
[2021-04-10] MEDS: METOPROLOL TARTRATE 25 MG TAB PO SCH (08:10)
[2021-04-10] MEDS: buPROPion 75 MG TAB PO SCH (08:10)
[2021-04-10] MEDS: methIMAzole 5 MG TAB PO SCH (08:11)
[2021-04-10] MEDS: FUROSEMIDE 40 MG TAB PO SCH (08:11)
[2021-04-10 08:16] VITALS: TEMP 98
[2021-04-10 10:39] LABS: Calcium 9.2 mg/dL (8.4-10.2); Potassium 4.4 mmol/L (3.5-5.1)
--- NOTE | 2021-04-10 10:44 | P.PN ---
Subjective HISTORY OF PRESENT ILLNESS: This is a 76-year-old female, patient of Dr. Hess, with a history of congestive heart failure, coronary artery disease with recent CABG 3 01/25/21, ischemic cardiomyopathy, paroxysmal atrial fibrillation, hypertension, and hyperlipidemia. Patient is admitted to the hospital secondary to shortness of breath. She was found to have a pleural effusion s/p thoracentesis with 1100mL removed on 04/07/21. She has been treated for acute exacerbation of heart failure. Patient seen and examined at bedside, no acute distress. She states her breathing has improved from yesterday. She states she is feeling better each day. She denies chest pain. She underwent right sided thoracentesis with Dr. Glover with 350mL removed. Laboratory data reviewed, sodium 134, potassium 4.4, BUN 20, serum and 1.28 She's currently maintained on Lasix 40 mg by mouth daily, amiodarone 200 mg daily, atorvastatin 40 mg nightly, lisinopril 5 mg daily, losartan 25 mg daily, metoprolol tartrate 25 mg daily. Telemetry rev iewed patient maintaining sinus mechanism heart rates 60s-70s PHYSICAL EXAM: VITAL SIGNS: Blood pressure 9952, heart rate 70, afebrile, maintaining saturations on 2 L nasal cannula GENERAL: Well-developed in no acute distress. NECK: Supple. No JVD or thyromegaly LUNGS: Respirations even and unlabored. Lungs diminished to auscultation bilaterally. HEART: Regular rate and rhythm. S1 and S2 heard. EXTREMITIES: Normal range of motion. No clubbing or cyanosis. Peripheral pulses intact. No lower extremity edema ASSESSMENT: Acute exacerbation of chronic systolic congestive heart failure Bilateral pleural effusions Status post thoracentesis right 1100mL removed on 04/07/21 Coronary artery disease with recent CABG 3 on 01/25/21 Ischemic cardiomyopathy EF 30-35% Paroxysmal atrial fibrillation on Eliquis Hypertension Hyperlipidemia Former tobacco use Acute on chronic kidney disease PLAN: Continue PO lasix 40mg daily Eliquis remains on hold for possible thoracentesis of left with pulmonary today Continue amiodarone, atorvastatin, lisinopril, losartan, metoprolol tartrate Monitor kidney function Daily weights, Accurate I&O Further recommendations pending patient's course Objective - Vital Signs Vital signs: Vital Signs Temp 98.0 F 04/10/21 08:00 Pulse 70 04/10/21 08:00 Resp 18 04/10/21 08:00 BP 99/52 04/10/21 08:00 Pulse Ox 96 04/10/21 08:00 Intake & Output 04/09/21 04/10/21 04/10/21 18:59 06:59 18:59 Intake Total 1200 180 Output Total 300 125 Balance 900 55 Weight 64.8 kg Intake: Oral 1200 180 Output: Urine 300 125 Other: Voiding Method Toilet Toilet # Voids 1 1 # Bowel Movements 1 1 - Labs CBC & Chem 7: 04/09/21 06:56 04/10/21 09:24 Labs: Abnormal Lab Results - Last 24 Hours (Table) 04/09/21 04/09/21 04/09/21 Range/Units 11:32 16:57 19:56 Sodium (137-145) mmol/L Carbon Dioxide (22-30) mmol/L BUN (7-17) mg/dL Creatinine (0.52-1.04) mg/dL Glucose (74-99) mg/dL POC Glucose (mg/dL) 114 H 178 H 140 H (75-99) mg/dL 04/10/21 04/10/21 Range/Units 06:16 09:24 Sodium 134 L (137-145) mmol/L Carbon Dioxide 21 L (22-30) mmol/L BUN 20 H (7-17) mg/dL Creatinine 1.28 H (0.52-1.04) mg/dL Glucose 152 H (74-99) mg/dL POC Glucose (mg/dL) 131 H (75-99) mg/dL Microbiology - Last 24 Hours (Table) 04/07/21 11:47 Gram Stain - Preliminary Pleural Fluid Body Fluid Culture - Preliminary 04/09/21 11:30 Gram Stain - Preliminary Pleural Fluid Body Fluid Culture - Preliminary 04/09/21 11:30 Fungal Culture - Preliminary Pleural Fluid 04/09/21 11:30 Acid Fast Bacilli Culture - Preliminary Pleural Fluid
--- NOTE | 2021-04-10 11:41 | P.PN ---
Subjective Progress Note Date: 04/10/21 This is a very pleasant 76-year-old female patient who follows with Dr. Florentino as her primary care provider. She has a history of non-ST elevated myocardial infarction, coronary artery disease, requiring off-pump three-vessel CABG on 01/25/2021, hyperthyroidism, borderline diabetes mellitus, hypertension, hyperlipidemia, history of breast cancer status post right mastectomy with chemotherapy, diverticulitis status post colostomy and subsequent reversal, and previous history of smoking, atrial fibrillation anticoagulated with Eliquis. Her postoperative care following her bypass surgery in January was uneventful, and patient went to [facility] for inpatient rehab after discharge. She has since been readmitted for issues with nausea vomiting diarrhea. Most recently discharged on 03/09/2021. She represented to year to the emergency room yesterday after being seen by her PCP for shortness of breath. Her chest x-ray does reveal bilateral pleural effusions and we're consulted for the same. She states she was told to stop her Lasix at the last discharge. She's been without for 2-3 days. She states she's gained 5 pounds. More short of breath. More lower extremity edema. EKG reveals sinus rhythm with a left bundle-branch block. Most recent echocardiogram reveals severely impaired left ventricular systolic function with ejection fraction 30-35%. This was February 2021. White count 7.0. Hemoglobin 11.7. Platelets 417. Sodium 139. Potassium 3.7. Creatinine 1.20. Glucose 136. ProBNP 7080. Troponin 0.032. Jin virus not detected. She is seen today in consultation on the selective care unit. She is currently sitting up in a chair at the bedside. Aw perla and alert in no acute distress. Maintaining O2 saturation in the mid to upper 90s on 2 L/m per nasal cannula. Afebrile. Hemodynamically stable. She has been initiated on IV diuretics. She is anticoagulated with Eliquis. The patient is seen today 04/06/2021 in follow-up on the selective care unit. She is currently sitting up in a chair at the bedside. Awake and alert in no acute distress. Breathing a bit easier today compared to yesterday. Ultrasound of the chest reveals a right-sided pleural effusion pocket size 7.3 cm, left pleural effusion pocket size 7.4 cm. The patient is quite reluctant to have a thoracentesis performed. We'll repeat a chest x-ray in the a.m. She remains on IV Lasix 40 mg every 12 hours. She is maintaining good O2 saturations in the 90s on room air. White count 6.4. Hemoglobin 12.0. Sodium 138. Potassium 4.1. Creatinine 1.20. Glucose 162. On 04/07/2021 patient seen in follow-up on selective care unit, she is oriented, in no acute distress, she is sitting in the chair, she is on room air, with pulse ox of 92-93%, she does desaturate with any exertion. Afebrile, no chest pain. Only occasional cough. Her chest ultrasound from 2 days ago showed right pleural effusion pocket of 7.3 cm, and left pleural effusion pocket of 7.4 cm. Her proBNP was elevated at 7080, she was negative for COVID-19, as no leukocytosis on her blood work, no fever or chills. Patient has been on Lasix 40 mg twice daily, she has been remaining in negative fluid balance. Today she underwent right-sided thoracentesis would removal of 1.[address] L of jessy colored pl eural fluid which was sent for pleural fluid analysis, cultures and cytology. Patient tolerated procedure very well, postprocedure chest x-ray showed moderate bilateral pleural effusion decreased in size on the right is stable on the left no pneumothorax. On 04/08/2021, the patient is being seen in a FU. The patient underwent thoracentesis yesterday and the patient tolerated the procedure well. Follow-up chest x-rays showing still bilateral pleural effusion, residual and the patient is still requiring oxygen to maintain saturation above 90%. Reveals a look in the pleural fluid revealed that the pleural fluid itself was an exudate based on the protein criteria with a total protein of 4.7, LDH was low. The patient is started on diuretics with Lasix 40 mg IV every 12 hours. Note that the chest x- ray postthoracentesis showed no major improvement in the amount of pleural effusions. The fluid itself on the right seems to be more so loculated. The patient did encounter some increased pain during thoracentesis and total amount of fluid removed from the right lung was in order of 1.1 L. I believe this is a exudate. She is sitting up on a chair. She seems to be comfortable at this point in time. Her labs from today is showing a creatinine of 1.4 which is slightly higher compared to yesterday. BUN is at 23. Sodium level is at 132. The oxygen flow currently is on 2 L to maintain a saturation at 92%. Subsequently, she was also placed on room air oxygen. 04/09/2021, the patient is being seen for a follow-up. The patient remains in oxygen at 2 L per minute nasal cannula. A computed tomography scan of the chest was done yesterday and the chest CAT scan showed bilateral pleural effusion with some atelectasis in lung bases and some early of ventilation on the right. B ased on this, a bedside thoracentesis was done and out of town 50 mL of pleural fluid was aspirated from the right lung. This was in a state based on a previous evaluation. The patient tolerated the procedure well. I believe that she will benefit ultimately from an IR guided thoracentesis bilaterally with residual pleural fluid. he blood work shows a white cell count of 5.1 with a hemoglobin of 11, creatinine was at 1.32 and the sodium level is at 133 with a potassium level of 3.5. LFTs are essentially within normal limits. 04/10/2021, the patient is feeling better. She is sitting up on a chair. She is currently on room air oxygen. Note that she does have some residual bilateral pleural effusion postthoracotomy. She underwent another thoracentesis yesterday with a total of 350 mL of fluid was aspirated. The fluid itself seems to be slightly more loculated on the right. The patient otherwise is doing well. No other complaints otherwise for now. No significant shortness of breath. She is using incentive spirometer. The plan is to monitor those pleural effusions for the time being. The protein in the pleural fluid was elevated and this is an exudate and this is a typical post thoracotomy exudative type of fluid while, the patient has a white cell count of 5.1. The sodium is at 134. Urine is at 20 with a creatinine of 1.2. Her medications include a combination of Lasix 40 mg by mouth daily and she is also on Eliquis that was resumed yesterday regarding her history of atrial fibrillation. Objective - Vital Signs Vital signs: Vital Signs Temp 98.0 F 04/10/21 08:00 Pulse 70 04/10/21 08:00 Resp 18 04/10/21 08:00 BP 99/52 04/10/21 08:00 Pulse Ox 96 04/10/21 08:00 Intake & Output 04/09/21 04/10/21 04/10/21 18:59 06:59 18:59 Intake Total 1200 180 Output Total 300 125 Balance 900 55 Weight 64.8 kg Intake: Oral 1200 180 Output: Urine 300 125 Other: Voiding Method Toilet Toilet # Voids 1 1 # Bowel Movements 1 1 - Exam GENERAL EXAM: Alert, pleasant, 76-year-old white female, on room air with pulse ox of 92%, comfortable in no apparent distress. HEAD: Normocephalic/atraumatic. EYES: Normal reaction of pupils, equal size. Conjunctiva pink, sclera white. NOSE: Clear with pink turbinates. THROAT: No erythema or exudates. NECK: No masses, no JVD, no thyroid enlargement, no adenopathy. CHEST: No chest wall deformity. Symmetrical expansion. LUNGS: Equal air entry with diminished breath sounds at bilateral bases, with crackles CVS: Regular rate and rhythm, normal S1 and S2, no gallops, no murmurs, no rubs ABDOMEN: Soft, nontender. No hepatosplenomegaly, normal bowel sounds, no guarding or rigidity. EXTREMITIES: No clubbing, no edema, no cyanosis, 2+ pulses and upper and lower extremities. MUSCULOSKELETAL: Muscle strength and tone normal. SPINE: No scoliosis or deformity SKIN: No rashes CENTRAL NERVOUS SYSTEM: Alert and oriented -3. No focal deficits, tone is normal in all 4 extremities. PSYCHIATRIC: Alert and oriented -3. Appropriate affect. Intact judgment and insight. - Labs CBC & Chem 7: 04/09/21 06:56 04/10/21 09:24 Labs: Abnormal Lab Results - Last 24 Hours (Table) 04/09/21 04/09/21 04/10/21 Range/Units 16:57 19:56 06:16 Sodium (137-145) mmol/L Carbon Dioxide (22-30) mmol/L BUN (7-17) mg/dL Creatinine (0.52-1.04) mg/dL Glucose (74-99) mg/dL POC Glucose (mg/dL) 178 H 140 H 131 H (75-99) mg/dL 04/10/21 Range/Units 09:24 Sodium 134 L (137-145) mmol/L Carbon Dioxide 21 L (22-30) mmol/L BUN 20 H (7-17) mg/dL Creatinine 1.28 H (0.52-1.04) mg/dL Glucose 152 H (74-99) mg/dL POC Glucose (mg/dL) (75-99) mg/dL Microbiology - Last 24 Hours (Table) 04/09/21 11:30 Gram Stain - Preliminary Pleural Fluid Body Fluid Culture - Preliminary 04/07/21 11:47 Gram Stain - Preliminary Pleural Fluid Body Fluid Culture - Preliminary 04/09/21 11:30 Fungal Culture - Preliminary Pleural Fluid 04/09/21 11:30 Acid Fast Bacilli Culture - Preliminary Pleural Fluid Assessment and Plan Plan: #1. Acute hypoxic respiratory failure secondary to acute exacerbation of chronic CHF with systolic dysfunction in bilateral pleural effusions, status post right-sided thoracentesis on 04/07/2021 with removal of 1.1 L of jessy- colored pleural fluid which was sent for pleural fluid analysis, cytology and cultures. The fluid itself seems to be an exudate based on the protein criteria. Consider possibility of a post thoracotomy related pleural effusion. The chest x-ray still showing residual bilateral pleural effusion and the patient remains on diuretics. A computed tomography scan of the chest was also done and it showed bilateral pleural effusion with somewhat loculation on the right and compressive atelectasis in lung bases. The fluid was worse on the right compared to the left. Based on that, I repeated another thoracentesis and removed another 350 mL of pleural fluid from the right lung. Repeat chest x-ray showed residual bilateral pleural effusions,, however, clinically, the patient is feeling much better and the patient is currently on room air oxygen and she is currently on Lasix. The pleural fluid protein is elevated and this is a exudative type of pleural fluid post thoracotomy. Fluid cytology is pending for now. #2. Recent hospitalization in February 2021 for acute exacerbation of systolic CHF, and at that time patient also had bilateral pleural effusions that were small was treated medically #3. Coronary artery disease status post off-pump coronary artery bypass grafting 3 with a WESLEY to the LAD, left radial arterial graft to the obtuse marginal, and reverse SVG to the posterior branch of the RCA and exclusion of the left atrial appendage on 01/25/2021 #4. Ischemic cardiomyopathy with ejection fraction of 30-35% #5. Paroxysmal atrial fibrillation on amiodarone, and Eliquis, currently in sinus mechanism #6. Hypertension #7. Hyperlipidemia #8. Former tobacco smoker #9. History of diverticulitis status post bowel resection, colostomy and subsequent reversal Plan: No plans to do any further thoracentesis Eliquis has been resumed Evaluated for home O2 Deep breathing and using incentive spirometer Lasix 40 mg by mouth daily Possible home with home O2 to be followed up on outpatient basis in 1-2 weeks regarding the progression of the pleural fluid.
--- NOTE | 2021-04-10 13:25 | P.PN ---
Subjective Progress Note Date: 04/09/21 Principal diagnosis: Acute hypoxic respiratory failure Acute exacerbation systolic CHF Bilateral pleural effusions 76-year-old female patient, history of non-ST elevated myocardial infarction, coronary artery disease, requiring off-pump three-vessel CABG on 01/25/2021, hyperthyroidism, borderline diabetes mellitus, hypertension, hyperlipidemia, atrial fibrillation anticoagulated with Eliquis. Her postoperative care following her bypass surgery in January was uneventful, and patient went to [facility] for inpatient rehab after discharge. She has since been readmitted for issues with nausea vomiting diarrhea. Most recently discharged on 03/09/2021. Patient presented to the emergency room yesterday after being seen by her PCP for shortness of breath. Her chest x-ray does reveal bilateral pleural effusions; patient reports she was told to stop her Lasix at the last discharge. She's been without for 2-3 days and reports 5 pound weight gain. EKG reveals sinus rhythm with a left bundle-branch block. Most recent echocardiogram reveals severely impaired left ventricular systolic function with ejection fraction 30-35%. This was February 2021. White count 7.0. Hemoglobin 11.7. Platelets 417. Sodium 139. Potassium 3.7. Creatinine 1.20. Glucose 136. ProBNP 7080. Troponin 0.032. Jin virus not detected. 04/07/2021 Patient is seen and evaluated sitting up in bedside chair; status post thoracentesis; complains of persistent cough and localized pain Vital signs are reviewed and stable with temperature of 97.3, pulse 65, respiration 20 and blood pressure 103 with 68; O2 saturation 98% on room air Chest x-ray reveals bilateral pleural effusion; patient underwent right-sided thoracentesis with removal of 1.1 L of jessy-colored pleural fluid which has been sent for analysis, culture and cytology; post procedure x-ray has been ordered and stable 04/08/2021 patient is seen and evaluated sitting up in bedside chair; underwent thoracentesis yesterday and the patient tolerated the procedure well. chest x-rays showing still bilateral pleural effusion, residual and the patient is still requiring oxygen to maintain saturation above 90%. pleural fluid revealed that the pleural fluid itself was an exudate based on the protein criteria with a total protein of 4.7, LDH was low. The patient is started on diuretics with Lasix 40 mg IV every 12 hours. Note that the chest x-ray postthoracentesis showed no major improvement in the amount of pleural effusions. The fluid itself on the right seems to be more so loculated. The patient did encounter some increased pain during thoracentesis and total amount of fluid removed from the right lung was in order of 1.1 L. I believe this is a exudate. labs from today is showing a creatinine of 1.4 which is slightly higher compared to yesterday. BUN is at 23. Sodium level is at 132. pulmonary recommending possible left-sided thoracentesis tomorrow 04/09/2021 patient is seen and evaluated post right sided thoracentesis. Patient is currently on room air. CT of the chest was done yesterday and the chest CAT scan showed bilateral pleural effusion with some atelectasis in lung bases and some early of ventilation on the right; pulmonary performed a bedside thoracentesis was done and 50 mL of pleural fluid was aspirated from the right lung. Pulmonary recommending a possible IR guided thoracentesis bilaterally with residual pleural fluid Labs are reviewed and white cell count of 5.1 with a hemoglobin of 11, creatinine was at 1.32 and the sodium level is at 133 with a potassium level of 3.5. LFTs are essentially within normal limits. Objective - Vital Signs Vital signs: Vital Signs Temp 97.9 F 04/09/21 06:32 Pulse 68 04/09/21 06:32 Resp 16 04/09/21 06:32 BP 90/46 04/09/21 06:32 Pulse Ox 94 L 04/09/21 11:18 Intake & Output 04/08/21 04/09/21 04/09/21 18:59 06:59 18:59 Intake Total 500 240 Output Total 200 50 300 Balance 300 -50 -60 Weight 66.2 kg Intake: Oral 500 240 Output: Urine 200 50 300 Other: Voiding Method Toilet Toilet # Voids 1 # Bowel Movements 1 - Exam GENERAL: The patient is alert and oriented x3, not in any acute distress. Well developed, well nourished. HEENT: Pupils are round and equally reacting to light. EOMI. No scleral icterus. No conjunctival pallor. Normocephalic, atraumatic. No pharyngeal erythema. No thyromegaly. CARDIOVASCULAR: S1 and S2 present. No murmurs, rubs, or gallops. PULMONARY: Chest is clear to auscultation, no wheezing or crackles. ABDOMEN: Soft, nontender, nondistended, normoactive bowel sounds. No palpable organomegaly. MUSCULOSKELETAL: No joint swelling or deformity. EXTREMITIES: No cyanosis, clubbing, or pedal edema. NEUROLOGICAL: Gross neurological examination did not reveal any focal deficits. SKIN: No rashes. - Labs CBC & Chem 7: 04/09/21 06:56 04/10/21 09:24 Labs: Abnormal Lab Results - Last 24 Hours (Table) 04/08/21 04/08/21 04/08/21 Range/Units 11:47 17:00 20:09 Hgb (11.4-16.0) gm/dL MCV (80.0-100.0) fL MCH (25.0-35.0) pg Lymphocytes # (1.0-4.8) k/uL Sodium (137-145) mmol/L BUN (7-17) mg/dL Creatinine (0.52-1.04) mg/dL Glucose (74-99) mg/dL POC Glucose (mg/dL) 156 H 139 H 161 H (75-99) mg/dL Total Protein (6.3-8.2) g/dL Albumin (3.5-5.0) g/dL 04/09/21 04/09/21 04/09/21 Range/Units 06:06 06:56 06:56 Hgb 11.0 L (11.4-16.0) gm/dL MCV 79.6 L (80.0-100.0) fL MCH 24.8 L (25.0-35.0) pg Lymphocytes # 0.7 L (1.0-4.8) k/uL Sodium 133 L (137-145) mmol/L BUN 22 H (7-17) mg/dL Creatinine 1.32 H (0.52-1.04) mg/dL Glucose 116 H (74-99) mg/dL POC Glucose (mg/dL) 116 H (75-99) mg/dL Total Protein 5.5 L (6.3-8.2) g/dL Albumin 2.9 L (3.5-5.0) g/dL 04/09/21 Range/Units 11:32 Hgb (11.4-16.0) gm/dL MCV (80.0-100.0) fL MCH (25.0-35.0) pg Lymphocytes # (1.0-4.8) k/uL Sodium (137-145) mmol/L BUN (7-17) mg/dL Creatinine (0.52-1.04) mg/dL Glucose (74-99) mg/dL POC Glucose (mg/dL) 114 H (75-99) mg/dL Total Protein (6.3-8.2) g/dL Albumin (3.5-5.0) g/dL Microbiology - Last 24 Hours (Table) 04/07/21 11:47 Gram Stain - Preliminary Pleural Fluid Body Fluid Culture - Preliminary Assessment and Plan Assessment: 1. Acute hypoxic respiratory failure; multifactorial; pleural effusion/CHF; O2 per nasal cannula; titrate to keep FiO2 greater than 90% 2. Acute exacerbation systolic CHF/ischemic cardiomyopathy; Lasix 40 mg IV every 12 hours; monitor strict RANDA's and daily weights; low-salt and fluid restricted diet; consult cardiology; patient does have EF of 30-35% 3. Bilateral pleural effusion; patient has been placed on Lasix 40 mg IV every 12 hours 4. Coronary artery disease/ischemic cardiomyopathy; status post off-pump CABG 3 with a WESLEY to the LAD, left radial artery graft to the up to his marginal, reverse SVG to the posterior lateral branch of the right coronary artery, and ex clusion of the left atrial appendage on 01/25/2021; EF 30-35% 5. Paroxysmal atrial fibrillation; patient remains rate controlled on amiodarone with anticoagulation with Eliquis 6. Hypertension; metoprolol 25 mg daily, lisinopril 5 mg daily, Lasix 40 mg IV every 12 hours 7. Hyperlipidemia; Lipitor 40 mg by mouth daily at bedtime DVT prophylaxis; SCDs/systemic anticoagulation CODE STATUS; full code
[2021-04-10 14:20] VITALS: BP 100/52; PULSE 60; RESP 20
[2021-04-10] MEDS ORDERED: ONDANSETRON 4 MG TAB PO PRN (18:21)
[2021-04-10] MEDS ORDERED: APIXABAN 2.5 MG TABLET PO SCH (21:00)
== END 2021-04-10 18:29 | disposition home or self-care (01) | DRG 280 ==
LOC: EC 19:50 → 3SCARD 04-05 02:09 → EC 04-05 03:06 → OBSVTOIN 04-05 13:13
PROVIDERS: ADMIT Hospitalist; ATTEND Hospitalist
PROC: 0W993ZZ Drainage of Right Pleural Cavity, Percutaneous Approach (ICD-10-PCS; principal; 2021-04-07)
PROC: 0W993ZZ Drainage of Right Pleural Cavity, Percutaneous Approach (ICD-10-PCS; 2021-04-09)
DX: I13.0 Hypertensive heart and chronic kidney disease with heart failure and stage 1 through stage 4 chronic kidney disease, or unspecified chronic kidney disease (principal); I21.A1 Myocardial infarction type 2; I50.23 Acute on chronic systolic (congestive) heart failure; J96.01 Acute respiratory failure with hypoxia; J91.8 Pleural effusion in other conditions classified elsewhere; J98.11 Atelectasis; N17.9 Acute kidney failure, unspecified; I25.2 Old myocardial infarction; N18.9 Chronic kidney disease, unspecified; E03.9 Hypothyroidism, unspecified; E05.90 Thyrotoxicosis, unspecified without thyrotoxic crisis or storm; I48.0 Paroxysmal atrial fibrillation; Z20.822 Contact with and (suspected) exposure to COVID-19; E78.5 Hyperlipidemia, unspecified; I25.10 Atherosclerotic heart disease of native coronary artery without angina pectoris; I25.5 Ischemic cardiomyopathy; I44.7 Left bundle-branch block, unspecified; Z79.01 Long term (current) use of anticoagulants; Z79.899 Other long term (current) drug therapy; Z85.3 Personal history of malignant neoplasm of breast; Z85.828 Personal history of other malignant neoplasm of skin; Z87.891 Personal history of nicotine dependence; Z90.11 Acquired absence of right breast and nipple; Z90.49 Acquired absence of other specified parts of digestive tract; Z90.710 Acquired absence of both cervix and uterus; Z93.3 Colostomy status; Z95.1 Presence of aortocoronary bypass graft; Z96.1 Presence of intraocular lens; Z96.652 Presence of left artificial knee joint; Z92.21 Personal history of antineoplastic chemotherapy
CPT/HCPCS: 36415; 71045; 71046; 71250; 76604; 80048; 80053; 82945; 83605; 83615; 83880; 84157; 84484; 85025; 87070; 87102; 87116; 87205; 87206; 87252; 87496; 87498; 87502; 87529; 87634; 87635; 87798; 88108; 88305; 89050; 93005; 94760; 96366

== ENCOUNTER 2021-05-18 12:22 | Inpatient (IN) | payer MEDICARE ==
[2021-05-18] MEDS ORDERED: MORPHINE SULFATE 2 MG/ML SYRINGE IVP STA ×2 (12:53→14:15)
[2021-05-18] MEDS ORDERED: NITROGLYCERIN OINT 1 INCH/GM PACKET TOPICAL STA (12:53)
[2021-05-18] MEDS ORDERED: ASPIRIN 81 MG PO STA (12:53)
[2021-05-18 13:19] LABS: Anisocytosis Slight; Basophils % (A) 0 %; Eosinophils # (A) 0.1 k/uL (0-0.7); Eosinophils % (A) 1 %; HCT 39.5 % (34.0-46.0); HGB 12.4 gm/dL (11.4-16.0); Lymphocytes # (A) 1.2 k/uL (1.0-4.8); Lymphocytes % (A) 10 %; MCH 23.8 pg (25.0-35.0); MCHC 31.5 g/dL (31.0-37.0); MCV 75.4 fL (80.0-100.0); Mean Platelet Volume 6.8; Microcytosis Slight; Monocytes # (A) 0.7 k/uL (0-1.0); Monocytes % (A) 6 %; Neutrophils # (A) 9.4 k/uL (1.3-7.7); Neutrophils % (A) 82 %; Platelet Count 464 k/uL (150-450); RBC 5.24 m/uL (3.80-5.40); RDW 16.2 % (11.5-15.5); WBC 11.6 k/uL (3.8-10.6)
[2021-05-18 13:28] LABS: Albumin 3.6 g/dL (3.5-5.0); Calcium 9.2 mg/dL (8.4-10.2); Magnesium 2.5 mg/dL (1.6-2.3); Potassium 5.1 mmol/L (3.5-5.1); Total Bilirubin 0.4 mg/dL (0.2-1.3); Total Protein 6.5 g/dL (6.3-8.2)
--- NOTE | 2021-05-18 13:43 | XR ---
EXAMINATION TYPE: XR chest 2V DATE OF EXAM: 05/18/2021 COMPARISON: Chest x-ray April 09, 2021 HISTORY: Chest pain into back. TECHNIQUE: Frontal and lateral views of the chest are obtained. FINDINGS: There is stable small to moderate-sized right pleural effusion. Stable cardiomegaly. Mod erate to large size left pleural effusion increased in size from prior with associated left basilar c ompressive atelectasis The osseous structures are demineralized. IMPRESSION: Cardiomegaly with small to moderate-sized right pleural effusion stable. Moderate to lar ge size left pleural effusion increased in size from prior.
[2021-05-18 13:59] LABS: Partial Thromboplastin Time 25.7 sec (22.0-30.0); Prothrombin Time 10.8 sec (9.0-12.0)
[2021-05-18] MEDS ORDERED: MAG HYDROX/AL HYDROX/SIMETH 30 ML, HYOSCYAMINE ELIXIR 10 ML, LIDOCAINE VISCOUS 2% 10 ML PO STA ×3 (14:16)
[2021-05-18] MEDS ORDERED: SODIUM CHLORIDE 0.9% 500 ML IV STA (14:16)
--- NOTE | 2021-05-18 14:54 | CT ---
EXAMINATION TYPE: CT abdomen pelvis w con DATE OF EXAM: 05/18/2021 COMPARISON: 03/03/2021 HISTORY: c/o chest and back pain CT DLP: 927.5 mGycm Automated exposure control for dose reduction was used. CONTRAST: Performed with IV Contrast, patient injected with 80cc mL of Isovue 300. Images obtained from the diaphragm to the floor the pelvis with IV contrast. There is large bilateral pleural effusions with loculation. There is infiltrate and atelectasis in both lower lobes. There is coronary artery calcification. Heart appears slightly enlarged. There is no pericardial effusion. Liver spleen stomach pancreas appear intact. There is large common bile duct measuring 1.8 cm. There is apparent cholecystectomy. There is no adrenal mass. There is cortical thinning left kidney. Kidneys show satisfactory contrast opacification. There is no hydronephrosis. Delayed images show little contrast in the renal collectin g systems. There is no retroperitoneal adenopathy. Bladder distends smoothly. There is surgical clips in the bowel in the pelvis. This is probably small bowel surgery. Appendix not seen. No sign of thic kened appendix. Small bowel is not significantly dilated. There is no evidence of free air. There is no ascites. Uterus is anteverted. I see no pelvic mass. The lumbar vertebra have fairly normal spacing. There is a first-degree L4-5 spondylolisthesis. There is no compression fracture. The bony pelvis is intact. Hip joints are intact. IMPRESSION: Large loculated bilateral pleural effusions are increased compared to old exam. Cardiomegaly. Atheros clerotic vascular disease. Left renal cortical thinning. Decreased excretion on the delayed images could relate to some degree o f renal failure. No evidence of a bowel obstruction. Chronically dilated common bile duct consistent with cholecystectomy.
[2021-05-18] MEDS ORDERED: ACETAMINOPHEN TAB 325 MG TAB PO PRN (16:15)
[2021-05-18] MEDS ORDERED: MORPHINE SULFATE 2 MG/ML SYRINGE IVP PRN (16:15)
[2021-05-18] MEDS ORDERED: NITROGLYCERIN SL TABS 0.4 MG TAB SUBLINGUAL PRN (16:15)
--- NOTE | 2021-05-18 16:15 | ED ---
General Adult HPI - General Chief complaint: Chest Pain Stated complaint: Chest Tightness Time Seen by Provider: 05/18/21 12:25 Source: patient, EMS Mode of arrival: EMS - History of Present Illness Initial comments: This 76-year-old female presents with a Complaint of bilateral abdominal pain which radiates up into her chest. She states that it started this morning upon wakening. She states that it is fairly severe. She denies any nausea vomiting diarrhea, fever, or chills. She does complain of occasional shortness of breath. She relates a complicated recent history. She had a non-ST elevation myocardial infarction in January of this year and subsequent three-vessel CABG. She has been in and out of the hospital since that time. She does relate a history of pleural effusions and had her right pleural effusion drained at one time. She denies any other complaints or modifying factors. No leg pain or swelling. - Related Data Home Medications Medication Instructions Recorded Confirmed Amitriptyline HCl [Elavil] 20 mg PO HS 01/21/21 05/18/21 Cholecalciferol [Vitamin D3 (25 50 mcg PO DAILY 01/21/21 05/18/21 Mcg = 1000 Iu)] Rosuvastatin [Crestor] 20 mg PO HS 01/21/21 05/18/21 buPROPion [Wellbutrin] 75 mg PO DAILY 01/21/21 05/18/21 ALPRAZolam [Xanax] 0.5 mg PO BID 03/31/21 05/18/21 Melatonin 5 mg PO HS PRN 04/05/21 05/18/21 Sertraline [Zoloft] 100 mg PO DAILY 04/05/21 05/18/21 Acetaminophen Tab [Tylenol Tab] 1,000 mg PO Q8H PRN 05/18/21 05/18/21 Benzonatate [Tessalon Perles] 100 mg PO TID PRN 05/18/21 05/18/21 Furosemide [Lasix] 40 mg PO BID 05/18/21 05/18/21 Ipratropium-Albuterol Nebulize 3 ml INHALATION RT-QID 05/18/21 05/18/21 [Duoneb 0.5 mg-3 mg/3 ml Soln] Metoprolol Tartrate [Lopressor] 12.5 mg PO BID 05/18/21 05/18/21 Midodrine HCl [ProAmatine] 10 mg PO AC-BID 05/18/21 05/18/21 Potassium Chloride [Potassium 20 meq PO DAILY 05/18/21 05/18/21 Chloride ER] Previous Rx's Medication Instructions Recorded methIMAzole [Tapazole] 15 mg PO DAILY tab 01/30/21 Losartan [Cozaar] 25 mg PO DAILY 30 Days #30 tab 03/08/21 Apixaban [Eliquis] 2.5 mg PO BID #60 tab 03/17/21 Amiodarone [Cordarone] 200 mg PO DAILY #30 tab 03/19/21 Allergies Allergy/AdvReac Type Severity Reaction Status Date / Time No Known Allergies Allergy Verified 05/18/21 14:33 Review of Systems ROS Statement: Those systems with pertinent positive or pertinent negative responses have been documented in the HPI. ROS Other: All systems not noted in ROS Statement are negative. Past Medical History Past Medical History: Coronary Artery Disease (CAD), Cancer, Hyperlipidemia, Hypertension, Memory Impairment, Myocardial Infarction (ID), Osteoarthritis (OA) Additional Past Medical History / Comment(s): 01/25/21 CABG X3 Last Myocardial Infarction Date:: 01/21/21 History of Any Multi-Drug Resistant Organisms: None Reported Past Surgical History: Appendectomy, Bladder Surgery, Bowel Resection, Breast Surgery, Cholecystectomy, Coronary Bypass/CABG, Hysterectomy, Orthopedic Surgery, Tubal Ligation Additional Past Surgical History / Comment(s): cataractsurgery x2 with lens implants, masectomy on right breast, bowel resection with colostomy and reversal, bladder suspension, left knee replacement, skin cancer removed from right ear Past Anesthesia/Blood Transfusion Reactions: No Reported Reaction Past Psychological History: No Psychological Hx Reported, Depression Smoking Status: Former smoker, Unknown if ever smoked Past Alcohol Use History: None Reported Past Drug Use History: None Reported - Past Family History Father Family Medical History: AFIB, Congestive Heart Failure (CHF) Mother Family Medical History: Cancer Additional Family Medical History / Comment(s): breast cancer with mets General Exam - General Exam Comments Initial Comments: GENERAL: The patient is well nourished and well hydrated. VITAL SIGNS: Heart rate, blood pressure, respiratory rate reviewed as recorded in nurse's notes. EYES: Pupils are round and reactive. Extraocular movements are intact. No conj unctival / lid redness or swelling. ENT: No external evidence of injury, swelling, or ecchymosis. Airway is patent. Throat is clear. NECK: Nontender. No swelling or evidence of injury. No subcutaneous emphysema. Trachea is midline. No thyroid mass. HEART: Regular rate and rhythm. Good peripheral pulses. LUNGS/CHEST: Breath sounds clear and equal bilaterally. No rales, rhonchi, or wheezes. No ecchymosis, subcutaneous emphysema, or tenderness. ABDOMEN: Abdomen soft with mild tenderness present diffusely. No palpable masses or organomegaly. No peritoneal signs. No abdominal wall swelling or ecchymosis. EXTREMITIES: No extremity tenderness. Normal muscle tone and function. No thoracolumbar tenderness. NEUROLOGIC: Sensation is grossly intact. Cranial nerve exam reveals face is symmetrical, tongue is midline, speech is clear. SKIN: No abrasions or ecchymosis is noted. No induration or masses noted. PSYCHIATRIC: Alert and oriented. Appropriate behavior and judgment. Course Vital Signs 05/18/21 05/18/21 05/18/21 12:28 13:00 14:00 Temperature 97.2 F L Pulse Rate 65 62 60 Respiratory 18 16 18 Rate Blood Pressure 110/58 114/62 114/71 O2 Sat by Pulse 99 100 Oximetry 05/18/21 15:50 Temperature Pulse Rate 60 Respiratory 18 Rate Blood Pressure 104/59 O2 Sat by Pulse 98 Oximetry Medical Decision Making - Medical Decision Making The patient was seen and examined. All diagnostics were reviewed. She is placed on a classroom monitor no ectopy is identified. EKG shows evidence of a normal sinus rhythm at a rate of 63. There is evidence of a left bundle branch block which is consistent with previous EKG. There is associated ST-T wave changes with this left bundle branch block. The NH intervals 168, QRS duration is 138, and the QTC intervals 478. She receives an IV with 2 of morphine which provided little relief. She received 2 additional milligrams of morphine and a GI cocktail. She states that she feels much improved on recheck. She also is given aspirin as well as some Nitropaste. The computed tomography scan of the abdomen and pelvis does show large bilateral pleural effusions worse on the left. No acute significant intra-abdominal pathology is identified. The chest x-ray shows the bilateral pleural effusions which are worse as compared to previous with the left being much worse than the right. The exact cause of her symptomatology is not definitively determined. It is felt as though it po tentially could be related to acute coronary syndrome and that she would benefit from admission to the hospital for further treatment. She is agreeable with this plan. In addition, appears that she does have significant left pleural effusion which may require thoracentesis. Case is discussed with Dr. Camarillo and she is agreeable with admission with pulmonology and cardiology to consult. - Lab Data Result diagrams: 05/18/21 13:11 05/18/21 13:11 Lab Results 05/18/21 05/18/21 05/18/21 Range/Units 13:11 13:11 13:11 WBC 11.6 H (3.8-10.6) k/uL RBC 5.24 (3.80-5.40) m/uL Hgb 12.4 (11.4-16.0) gm/dL Hct 39.5 (34.0-46.0) % MCV 75.4 L (80.0-100.0) fL MCH 23.8 L (25.0-35.0) pg MCHC 31.5 (31.0-37.0) g/dL RDW 16.2 H (11.5-15.5) % Plt Count 464 H (150-450) k/uL MPV 6.8 Neutrophils % 82 % Lymphocytes % 10 % Monocytes % 6 % Eosinophils % 1 % Basophils % 0 % Neutrophils # 9.4 H (1.3-7.7) k/uL Lymphocytes # 1.2 (1.0-4.8) k/uL Monocytes # 0.7 (0-1.0) k/uL Eosinophils # 0.1 (0-0.7) k/uL Basophils # 0.0 (0-0.2) k/uL Anisocytosis Slight Microcytosis Slight PT 10.8 (9.0-12.0) sec INR 1.0 (<1.2) APTT 25.7 (22.0-30.0) sec Sodium 132 L (137-145) mmol/L Potassium 5.1 (3.5-5.1) mmol/L Chloride 97 L (98-107) mmol/L Carbon Dioxide 26 (22-30) mmol/L Anion Gap 9 mmol/L BUN 20 H (7-17) mg/dL Creatinine 1.44 H (0.52-1.04) mg/dL Est GFR (CKD-EPI)AfAm 41 (>60 ml/min/1.73 sqM) Est GFR (CKD-EPI)NonAf 36 (>60 ml/min/1.73 sqM) Glucose 140 H (74-99) mg/dL Calcium 9.2 (8.4-10.2) mg/dL Magnesium 2.5 H (1.6-2.3) mg/dL Total Bilirubin 0.4 (0.2-1.3) mg/dL AST 123 H (14-36) U/L ALT 66 H (4-34) U/L Alkaline Phosphatase 93 (38-126) U/L Troponin I (0.000-0.034) ng/mL NT-Pro-B Natriuret Pep pg/mL Total Protein 6.5 (6.3-8.2) g/dL Albumin 3.6 (3.5-5.0) g/dL Lipase 46 (23-300) U/L 05/18/21 05/18/21 Range/Units 13:11 13:11 WBC (3.8-10.6) k/uL RBC (3.80-5.40) m/uL Hgb (11.4-16.0) gm/dL Hct (34.0-46.0) % MCV (80.0-100.0) fL MCH (25.0-35.0) pg MCHC (31.0-37.0) g/dL RDW (11.5-15.5) % Plt Count (150-450) k/uL MPV Neutrophils % % Lymphocytes % % Monocytes % % Eosinophils % % Basophils % % Neutrophils # (1.3-7.7) k/uL Lymphocytes # (1.0-4.8) k/uL Monocytes # (0-1.0) k/uL Eosinophils # (0-0.7) k/uL Basophils # (0-0.2) k/uL Anisocytosis Microcytosis PT (9.0-12.0) sec INR (<1.2) APTT (22.0-30.0) sec Sodium (137-145) mmol/L Potassium (3.5-5.1) mmol/L Chloride (98-107) mmol/L Carbon Dioxide (22-30) mmol/L Anion Gap mmol/L BUN (7-17) mg/dL Creatinine (0.52-1.04) mg/dL Est GFR (CKD-EPI)AfAm (>60 ml/min/1.73 sqM) Est GFR (CKD-EPI)NonAf (>60 ml/min/1.73 sqM) Glucose (74-99) mg/dL Calcium (8.4-10.2) mg/dL Magnesium (1.6-2.3) mg/dL Total Bilirubin (0.2-1.3) mg/dL AST (14-36) U/L ALT (4-34) U/L Alkaline Phosphatase (38-126) U/L Troponin I 0.023 (0.000-0.034) ng/mL NT-Pro-B Natriuret Pep 3830 pg/mL Total Protein (6.3-8.2) g/dL Albumin (3.5-5.0) g/dL Lipase (23-300) U/L Disposition Clinical Impression: Acute abdominal pain, Acute chest pain, Unstable angina, Renal insufficiency, Pleural effusion, History of coronary artery bypass graft x 3 Disposition: ADMITTED IP TO THIS HOSP Is patient prescribed a controlled substance at d/c from ED?: No Referrals: Brian Foster DO [Primary Care Provider] - 1-2 days Time of Disposition: 16:14 Decision Date: 05/18/21 Decision Time: 16:14
[2021-05-18] MEDS ORDERED: BENZONATATE 100 MG CAP PO PRN (16:18)
[2021-05-18] MEDS ORDERED: MELATONIN 5 MG TABLET PO PRN (16:18)
--- NOTE | 2021-05-18 17:08 | P.HPIM ---
History of Present Illness H&P Date: 05/18/21 Chief Complaint: Back pain 76-year-old woman with medical history of diabetes, hyperthyroidism, CAD status post recent CABG in January 2021, hypertension, hyperlipidemia, paroxysmal atrial fibrillation on Eliquis, bilateral exudative loculated pleural effusions followed by pulmonary outpatient suspected to be related to post thoracotomy status presented with back pain. Patient describes the pain as squeezing in nature with radiation in a bandlike pattern to the anterior abdomen at the lower border of the ribs. She says the pain started in the middle the night and woke her from sleep. The pain is worse when she moves, breathes deeply, coughs. She says lying on her back is painful as well, has trouble lying on her side or moving from the bed due to pain. She did receive morphine in the emergency room which she says has helped, but she can still feel the discomfort. She has had multiple hospitalizations recently, and has been noted to have bilateral pleural effusions, with multiple thoracenteses; the results from these studies demonstrate exudative pleural effusion based on protein criteria, and her suspected to be related to post thoracotomy status. Due to these effusions, she developed chronic respiratory failure warranting 2-3 L of nasal cannula at home, and has followed up with pulmonary medicine in the clinic since. On review of systems, she denies fevers, chills, nausea, vomiting, chest pain, palpitations, syncope, presyncope, abdominal pain, diarrhea, constipation, dysuria, dyschezia, numbness/weakness of extremities, saddle anesthesia, loss of bladder or bowel. In the emergency room she is noted to be afebrile, 104/59, heart rate 60, 98% on 4 L nasal cannula. CBC has mild leukocytosis to 11.6. Chemistries have hyponatremia to 132, BUN/creatinine is 20/1.44 which represents her baseline. LFTs have elevation of AST to ALT of 2 to 1 ratio 123 to 66. Troponin was negative. BNP was elevated at 3830. No EKG to review during this admission, prior admission EKG demonstrates sinus rhythm with left bundle-branch block. Chest x-ray demonstrate cardiomegaly with small to moderate sized right pleural effusion and a moderate to large left pleural effusion; left pleural effusion is increased in size from prior study. CT of the abdomen/pelvis demonstrates loculated effusion on the left and the right. Review of Systems All Systems reviewed and pertinent positives and negatives noted in HPI, all other symptoms are negative Past Medical History Past Medical History: Coronary Artery Disease (CAD), Cancer, Hyperlipidemia, Hypertension, Memory Impairment, Myocardial Infarction ([place]), Osteoarthritis (OA) Additional Past Medical History / Comment(s): 01/25/21 CABG X3 Last Myocardial Infarction Date:: 01/21/21 History of Any Multi-Drug Resistant Organisms: None Reported Past Surgical History: Appendectomy, Bladder Surgery, Bowel Resection, Breast Surgery, Cholecystectomy, Coronary Bypass/CABG, Hysterectomy, Orthopedic Surgery, Tubal Ligation Additional Past Surgical History / Comment(s): cataractsurgery x2 with lens implants, masectomy on right breast, bowel resection with colostomy and reversal, bladder suspension, left knee replacement, skin cancer removed from right ear Past Anesthesia/Blood Transfusion Reactions: No Reported Reaction Past Psychological History: No Psychological Hx Reported, Depression Smoking Status: Former smoker, Unknown if ever smoked Past Alcohol Use History: None Reported Past Drug Use History: None Reported - Past Family History Father Family Medical History: AFIB, Congestive Heart Failure (CHF) Mother Family Medical History: Cancer Additional Family Medical History / Comment(s): breast cancer with mets Medications and Allergies Home Medications Medication Instructions Recorded Confirmed Type Amitriptyline HCl [Elavil] 20 mg PO HS 01/21/21 05/18/21 History Cholecalciferol [Vitamin D3 (25 50 mcg PO DAILY 01/21/21 05/18/21 History Mcg = 1000 Iu)] Rosuvastatin [Crestor] 20 mg PO HS 01/21/21 05/18/21 History buPROPion [Wellbutrin] 75 mg PO DAILY 01/21/21 05/18/21 History methIMAzole [Tapazole] 15 mg PO DAILY tab 01/30/21 05/18/21 Rx Losartan [Cozaar] 25 mg PO DAILY 30 Days #30 tab 03/08/21 05/18/21 Rx Apixaban [Eliquis] 2.5 mg PO BID #60 tab 03/17/21 05/18/21 Rx Amiodarone [Cordarone] 200 mg PO DAILY #30 tab 03/19/21 05/18/21 Rx ALPRAZolam [Xanax] 0.5 mg PO BID 03/31/21 05/18/21 History Melatonin 5 mg PO HS PRN 04/05/21 05/18/21 History Sertraline [Zoloft] 100 mg PO DAILY 04/05/21 05/18/21 History Acetaminophen Tab [Tylenol Tab] 1,000 mg PO Q8H PRN 05/18/21 05/18/21 History Benzonatate [Tessalon Perles] 100 mg PO TID PRN 05/18/21 05/18/21 History Furosemide [Lasix] 40 mg PO BID 05/18/21 05/18/21 History Ipratropium-Albuterol Nebulize 3 ml INHALATION RT-QID 05/18/21 05/18/21 History [Duoneb 0.5 mg-3 mg/3 ml Soln] Metoprolol Tartrate [Lopressor] 12.5 mg PO BID 05/18/21 05/18/21 History Midodrine HCl [ProAmatine] 10 mg PO AC-BID 05/18/21 05/18/21 History Potassium Chloride [Potassium 20 meq PO DAILY 05/18/21 05/18/21 History Chloride ER] Allergies Allergy/AdvReac Type Severity Reaction Status Date / Time No Known Allergies Allergy Verified 05/18/21 14:33 Physical Exam Osteopathic Statement: *. No significant issues noted on an osteopathic structural exam other than those noted in the History and Physical/Consult. Vitals: Vital Signs Temp Pulse Resp BP Pulse Ox 05/18/21 15:50 60 18 104/59 98 05/18/21 14:00 60 18 114/71 05/18/21 13:00 62 16 114/62 100 05/18/21 12:28 97.2 F L 65 18 110/58 99 Intake and Output 05/18/21 05/18/21 05/18/21 06:59 14:59 22:59 Other: Weight 58.967 kg Gen: awake, alert HEENT: normocephalic, atraumatic, good hearing acuity, moist mucous membranes Resp: good air exchange, breathing comfortably with no accessory muscle use, diminished breath sounds bilaterally with crackles CVS: good distal perfusion x 4, regular rate and rhythm without murmurs GI: soft, NTTP, ND : no SPT, no CVAT, casey catheter not present MSK: Tenderness to palpation near T10 to T11 with palpable pain in the lower ribs of the right side on the left side, no pitting edema Neuro: non-focal, moving all extremities Psych: cooperative, euthymic mood Results CBC & Chem 7: 05/18/21 13:11 05/18/21 13:11 Labs: Abnormal Lab Results - Last 24 Hours (Table) 05/18/21 05/18/21 Range/Units 13:11 13:11 WBC 11.6 H (3.8-10.6) k/uL MCV 75.4 L (80.0-100.0) fL MCH 23.8 L (25.0-35.0) pg RDW 16.2 H (11.5-15.5) % Plt Count 464 H (150-450) k/uL Neutrophils # 9.4 H (1.3-7.7) k/uL Sodium 132 L (137-145) mmol/L Chloride 97 L (98-107) mmol/L BUN 20 H (7-17) mg/dL Creatinine 1.44 H (0.52-1.04) mg/dL Glucose 140 H (74-99) mg/dL Magnesium 2.5 H (1.6-2.3) mg/dL AST 123 H (14-36) U/L ALT 66 H (4-34) U/L Assessment and Plan Assessment: Back pain -Admit inpatient, telemetry -Morphine when necessary for pain control -Nausea control -PT -X-ray of the T-spine/L spine to rule out compression fracture CAD status post CABG Paroxysmal atrial fibrillation Hypertension Hyperlipidemia -Cardiology consulted -Resume home medications: -Amiodarone -Eliquis -Aspirin, statin -Lasix -Losartan, metoprolol Chronic kidney disease, stage III B -Resume Midodrine -Avoid nephrotoxins Bilateral pleural effusions, loculated Chronic respiratory failure -Oxygen as needed -Duo nebs as needed -Pulmonary consulted -Consider cardiovascular surgery to place chest tube with consideration of TPA to clear loculations Diabetes type 2 Hyperthyroidism Mood disorder -Home medications reviewed and reconciled Patient is a full code, note: Patient's paperwork expresses DO NOT RESUSCITATE DO NOT INTUBATE, however, patient explicitly told me that she would like to reverse this decision at this time
--- NOTE | 2021-05-18 17:43 | XR ---
EXAMINATION TYPE: XR lumbar spine 2 or 3V DATE OF EXAM: 05/18/2021 COMPARISON: NONE HISTORY: Back pain TECHNIQUE: 3 views FINDINGS: There is a mild first-degree L4-5 spondylolisthesis that measures 5 mm. This spaces are april rly normal. Abdominal aorta is atheromatous. There is no compression fracture. Sacroiliac joints are intact. IMPRESSION: Degenerative first-degree L4-5 spondylolisthesis. No fracture seen.
--- NOTE | 2021-05-18 17:46 | XR ---
EXAMINATION TYPE: XR thoracic spine 2V DATE OF EXAM: 05/18/2021 COMPARISON: NONE HISTORY: Back pain TECHNIQUE: 3 views FINDINGS: There is moderate size left pleural effusion. Thoracic vertebra have fairly normal alignment. There i s osteopenia. There is no significant compression deformity. There is degenerative disc space narrowi ng throughout the thoracic spine with spur formation. IMPRESSION: No significant compression deformity. Large left pleural effusion.
--- NOTE | 2021-05-18 18:35 | P.CNPUL ---
History of Present Illness Consult date: 05/18/21 Requesting physician: Krissy Salmon Chief complaint: Abdominal discomfort History of present illness: This is a very pleasant 76-year-old female patient who follows with Dr. Florentino as her primary care provider. She has a history of non-ST elevated myocardial infarction, coronary artery disease, requiring off-pump three-vessel CABG on 01/25/2021, hyperthyroidism, borderline diabetes mellitus, hypertension, hyperli pidemia, history of breast cancer status post right mastectomy with chemotherapy, diverticulitis status post colostomy and subsequent reversal, and previous history of smoking, atrial fibrillation anticoagulated with Eliquis. She had undergone coronary artery bypass surgery back in January 2021 and his Several Readmissions for Abdominal Discomfort. She's Also Been Noted to Have Recurrent Pleural Effusions. She had a right-sided thoracentesis on 04/07/2021 with 1100 mL of yellow fluid removed. Negative for malignancy. And another right-sided thoracentesis done on 04/09/2021. Negative for malignancy. She presented here to the emergency room today with complaints of abdominal discomfort radiating up into her chest with pain through to her back. X-rays again showing small to moderate right-sided pleural effusion and a moderate to large left-sided pleural effusion now. She scan of the abdomen revealed a large loculated bilateral pleural effusions increased from previous. Cardiomegaly. Left renal cortical thinning. No evidence of bowel obstruction. X-rays of the thoracic and lumbar spine reveals no evidence of fracture. White count 11.6. Hemoglobin 12.4. Platelets 464. Sodium 132. Potassium 5.1. Creatinine 1.44. AST 2123. ALT 66. Troponins 0.0-3, 0.038. Jin virus by PCR not detected. Seen today in the emergency room currently resting fairly comfortably on a stretcher. She is maintaining O2 saturations up to 98% on 4 L/m per nasal cannula. She's been afebrile. Hemodynamically stable. Review of Systems REVIEW OF SYSTEMS: CONSTITUTIONAL: Denies any recent significant weight loss or weight gain. EYES: Denies change in vision. EARS, NOSE, MOUTH, THROAT: Denies headaches, denies sore throat. CARDIOVASCULAR: Denies chest pain, palpitations or syncopal episodes. RESPIRATORY: Positive for shortness of breath, cough, congestion or hemoptysis. GASTROINTESTINAL: Positive for abdominal pain GENITOURINARY: Denies hematuria, denies infections. MUSKULOSKELETAL: Positive for back pain. INTEGUMENTARY: Denies rash, denies eczema. NEUROLOGICAL: Denies recent memory loss, no recent seizure activity. PSYCHIATRIC: Denies anxiety, denies depression. HEMATOLOGIC/LYMPHATIC: Denies anemia, denies enlarged lymph nodes. Past Medical History Past Medical History: Coronary Artery Disease (CAD), Cancer, Hyperlipidemia, Hypertension, Memory Impairment, Myocardial Infarction ([place]), Osteoarthritis (OA) Additional Past Medical History / Comment(s): 01/25/21 CABG X3 Last Myocardial Infarction Date:: 01/21/21 History of Any Multi-Drug Resistant Organisms: None Reported Past Surgical History: Appendectomy, Bladder Surgery, Bowel Resection, Breast Surgery, Cholecystectomy, Coronary Bypass/CABG, Hysterectomy, Orthopedic Surgery, Tubal Ligation Additional Past Surgical History / Comment(s): cataractsurgery x2 with lens implants, masectomy on right breast, bowel resection with colostomy and reversal, bladder suspension, left knee replacement, skin cancer removed from right ear Past Anesthesia/Blood Transfusion Reactions: No Reported Reaction Past Psychological History: No Psychological Hx Reported, Depression Smoking Status: Former smoker, Unknown if ever smoked Past Alcohol Use History: None Reported Past Drug Use History: None Reported - Past Family History Father Family Medical History: AFIB, Congestive Heart Failure (CHF) Mother Family Medical History: Cancer Additional Family Medical History / Comment(s): breast cancer with mets Medications and Allergies Home Medications Medication Instructions Recorded Confirmed Type Amitriptyline HCl [Elavil] 20 mg PO HS 01/21/21 05/18/21 History Cholecalciferol [Vitamin D3 (25 50 mcg PO DAILY 01/21/21 05/18/21 History Mcg = 1000 Iu)] Rosuvastatin [Crestor] 20 mg PO HS 01/21/21 05/18/21 History buPROPion [Wellbutrin] 75 mg PO DAILY 01/21/21 05/18/21 History methIMAzole [Tapazole] 15 mg PO DAILY tab 01/30/21 05/18/21 Rx Losartan [Cozaar] 25 mg PO DAILY 30 Days #30 tab 03/08/21 05/18/21 Rx Apixaban [Eliquis] 2.5 mg PO BID #60 tab 03/17/21 05/18/21 Rx Amiodarone [Cordarone] 200 mg PO DAILY #30 tab 03/19/21 05/18/21 Rx ALPRAZolam [Xanax] 0.5 mg PO BID 03/31/21 05/18/21 History Melatonin 5 mg PO HS PRN 04/05/21 05/18/21 History Sertraline [Zoloft] 100 mg PO DAILY 04/05/21 05/18/21 History Acetaminophen Tab [Tylenol Tab] 1,000 mg PO Q8H PRN 05/18/21 05/18/21 History Benzonatate [Tessalon Perles] 100 mg PO TID PRN 05/18/21 05/18/21 History Furosemide [Lasix] 40 mg PO BID 05/18/21 05/18/21 History Ipratropium-Albuterol Nebulize 3 ml INHALATION RT-QID 05/18/21 05/18/21 History [Duoneb 0.5 mg-3 mg/3 ml Soln] Metoprolol Tartrate [Lopressor] 12.5 mg PO BID 05/18/21 05/18/21 History Midodrine HCl [ProAmatine] 10 mg PO AC-BID 05/18/21 05/18/21 History Potassium Chloride [Potassium 20 meq PO DAILY 05/18/21 05/18/21 History Chloride ER] Allergies Allergy/AdvReac Type Severity Reaction Status Date / Time No Known Allergies Allergy Verified 05/18/21 14:33 Physical Exam Vitals: Vital Signs Temp Pulse Resp BP Pulse Ox 05/18/21 17:00 18 93/44 05/18/21 15:50 60 18 104/59 98 05/18/21 14:00 60 18 114/71 05/18/21 13:00 62 16 114/62 100 05/18/21 12:28 97.2 F L 65 18 110/58 99 Intake and Output 05/18/21 05/18/21 05/18/21 06:59 14:59 22:59 Other: Weight 58.967 kg GENERAL EXAM: Alert, pleasant 76-year-old female patient, on 4 L nasal cannula, fairly comfortable in no apparent distress. HEAD: Normocephalic. EYES: Normal reaction of pupils, equal size. NOSE: Clear with pink turbinates. THROAT: No erythema or exudates. NECK: No masses, no JVD. CHEST: No chest wall deformity. LUNGS: Equal air entry with echoes in the bases left greater than right. CVS: S1 and S2 normal with no audible murmur, regular rhythm. ABDOMEN: No hepatosplenomegaly, normal bowel sounds, no guarding or rigidity. SPINE: No scoliosis or deformity SKIN: No rashes CENTRAL NERVOUS SYSTEM: No focal deficits, tone is normal in all 4 extremities. EXTREMITIES: There is no peripheral edema. No clubbing, no cyanosis. Peripheral pulses are intact. Results - Laboratory Findings CBC and BMP: 05/18/21 13:11 05/18/21 13:11 PT/INR, D-dimer PT 10.8 sec (9.0-12.0) 05/18/21 13:11 INR 1.0 (<1.2) 05/18/21 13:11 Abnormal lab findings: Abnormal Labs 05/18/21 05/18/21 05/18/21 13:11 13:11 16:50 WBC 11.6 H MCV 75.4 L MCH 23.8 L RDW 16.2 H Plt Count 464 H Neutrophils # 9.4 H Sodium 132 L Chloride 97 L BUN 20 H Creatinine 1.44 H Glucose 140 H Magnesium 2.5 H AST 123 H ALT 66 H Troponin I 0.038 H* - Diagnostic Findings Chest x-ray: image reviewed Assessment and Plan Assessment: 1 Abdominal pain radiating to her back. Computed tomography scan of the abdomen revealed no acute abdominal abnormalities. X-rays of the lumbar and thoracic spine revealed no evidence of fracture 2 Acute hypoxic respiratory failure secondary to an acute exacerbation of chronic systolic congestive heart failure and bilateral pleural effusions and the patient has had previous thoracentesis on the right 2. Negative for malignancy 3 Coronary artery disease status post off-pump CABG 3 with a WESLEY to the LAD, left radial artery graft to the up to his marginal, reverse SVG to the posterior lateral branch of the right coronary artery, and exclusion of the left atrial appendage on 01/25/2021 4 Ischemic cardiomyopathy with ejection fraction 30-35% 5 Paroxysmal atrial fibrillation, on amiodarone, anticoagulated with Eliquis 6 Hypertension 7 Hyperlipidemia 8 Former tobacco smoker 9 History of diverticulitis, status post bowel resection, colostomy, with subsequent reversal 10 Former smoking history Plan: The patient was seen and evaluated by Dr. Basha Chest x-ray and labs reviewed We will order ultrasound of the chest for the bilateral effusions Hold Eliquis Possible thoracentesis in a.m. Continue diuretics Titrate the FiO2 as tolerated We will continue to follow and make further recommendations based on her clinic al status I, the cosigning physician, performed a history & physical examination of the patient. Lungs sounds crackles in the bilateral posterior bases left greater than right. Maintaining good O2 saturations in the 90s on 4 L/m per nasal cannula. I discussed the assessment and plan of care with my nurse practitioner, Precious Schrader. I attest to the above consultation as dictated by her. Time with Patient: Greater than 30
--- NOTE | 2021-05-18 18:54 | US ---
EXAMINATION TYPE: US chest DATE OF EXAM: 05/18/2021 COMPARISON: NONE CLINICAL HISTORY: Bilateral effusions. TECHNIQUE: Targeted ultrasound of the posterior lower bilateral hemithoraces EXAM MEASUREMENTS: Right Pleural Effusion pocket size: 7.1 cm Right skin surface to fluid distance: 2.7 cm Left Pleural Effusion pocket size: 10.9 cm Left skin surface to fluid distance: 2.7 cm Right side marked for possible thoracentesis outside the dept. Left side marked for possible thoracentesis outside the dept. Pulmonologists are able to review the images in the patient?s EMR. IMPRESSIONS: Moderate bilateral pleural effusions are demonstrated.
[2021-05-18] MEDS: NITROGLYCERIN OINT 1 INCH/GM PACKET TOPICAL SCH (20:06)
[2021-05-18] MEDS: METOPROLOL TARTRATE 12.5 MG TAB PO SCH (20:07)
[2021-05-18] MEDS: ATORVASTATIN 40 MG TAB PO SCH (20:07)
[2021-05-18] MEDS: FUROSEMIDE 40 MG TAB PO SCH (20:07)
[2021-05-18] MEDS: ALPRAZolam 0.5 MG TAB PO SCH (20:08)
[2021-05-18] MEDS: MIDODRINE 5 MG TAB PO SCH (20:08)
[2021-05-18] MEDS: AMITRIPTYLINE HCL 10 MG TAB PO SCH (20:25)
[2021-05-18] MEDS ORDERED: APIXABAN 2.5 MG TABLET PO SCH (21:00)
[2021-05-18] MEDS: IPRATROPIUM-ALBUTEROL 3 ML NEB INHALATION SCH (21:05)
[2021-05-18 22:28] LABS: Glucose,Whole Blood 103 mg/dL (75-99)
[2021-05-19 03:54] LABS: Basophils % (A) 0 %; Eosinophils # (A) 0.1 k/uL (0-0.7); Eosinophils % (A) 1 %; HGB 11.7 gm/dL (11.4-16.0); Lymphocytes # (A) 1.2 k/uL (1.0-4.8); Lymphocytes % (A) 16 %; MCH 23.9 pg (25.0-35.0); MCHC 31.5 g/dL (31.0-37.0); Mean Platelet Volume 7.2; Microcytosis Slight; Monocytes # (A) 0.5 k/uL (0-1.0); Monocytes % (A) 7 %; Neutrophils # (A) 5.6 k/uL (1.3-7.7); Neutrophils % (A) 74 %; Platelet Count 382 k/uL (150-450); RBC 4.87 m/uL (3.80-5.40); RDW 15.9 % (11.5-15.5); WBC 7.5 k/uL (3.8-10.6)
[2021-05-19 04:15] LABS: African American GFR (CKD) 45 (>60 ml/min/1.73 sqM); Anion Gap 9 mmol/L; Blood Urea Nitrogen 19 mg/dL (7-17); Calcium 8.6 mg/dL (8.4-10.2); Carbon Dioxide 24 mmol/L (22-30); Chloride 96 mmol/L (98-107); Glucose 103 mg/dL (74-99); Magnesium 2.5 mg/dL (1.6-2.3); Non-African American GFR(CKD) 39 (>60 ml/min/1.73 sqM); Sodium 129 mmol/L (137-145)
[2021-05-19] MEDS: MIDODRINE 5 MG TAB PO SCH ×2 (07:56→17:37)
[2021-05-19] MEDS: NITROGLYCERIN OINT 1 INCH/GM PACKET TOPICAL SCH ×4 (07:57→23:33)
[2021-05-19] MEDS: IPRATROPIUM-ALBUTEROL 3 ML NEB INHALATION SCH ×4 (08:24→21:40)
[2021-05-19] MEDS ORDERED: POTASSIUM CHLORIDE ER 20 MEQ TAB.ER PO SCH (09:00)
[2021-05-19] MEDS ORDERED: ASPIRIN 325 MG TAB PO SCH (09:00)
[2021-05-19] MEDS: ALPRAZolam 0.5 MG TAB PO SCH ×2 (10:15→20:04)
[2021-05-19] MEDS: ASPIRIN 81 MG PO SCH ×2 (10:15→11:54)
[2021-05-19] MEDS: AMIODARONE 200 MG TAB PO SCH (10:15)
[2021-05-19] MEDS: FUROSEMIDE 40 MG TAB PO SCH ×2 (10:16→17:37)
[2021-05-19] MEDS: METOPROLOL TARTRATE 12.5 MG TAB PO SCH ×2 (10:16→20:04)
[2021-05-19] MEDS: methIMAzole 5 MG TAB PO SCH (10:16)
[2021-05-19] MEDS: buPROPion 75 MG TAB PO SCH (10:16)
[2021-05-19] MEDS: CHOLECALCIFEROL 25 MCG (1000 IU) TABLET PO SCH (10:16)
[2021-05-19] MEDS: LOSARTAN 25 MG TAB PO SCH (10:16)
[2021-05-19] MEDS: SERTRALINE 100 MG TAB PO SCH (10:17)
[2021-05-19 11:57] LABS: Chol/HDL Ratio 3.74 Ratio; LDL Cholesterol,Calculated 60.1 mg/dL (0.0-131.0)
--- NOTE | 2021-05-19 12:04 | P.CRDCN ---
History of Present Illness History of present illness: This is Dr. Horton dictating a consult on this patient The patient was interviewed and examined IMPRESSION / ASSESSMENT: CAD, coronary artery bypass grafting Postoperative pleural effusion, bilateral and increasing in size Currently large loculated bilateral pleural effusions that are increased as compared to old exam PLAN: Continue Crestor and metoprolol and losartan as well as Lasix Further management of pleural effusions per CT surgery and pulmonary medicine No specific cardiac recommendations at this time May reduce amiodarone to 100 mg by mouth daily at discharge Please call as needed HPI Patient presented with abdominal pain that radiates up chest as well as shortness of breath She was found to have an increasing size loculated pleural effusion Cardiac G was consulted because she has a history of coronary artery disease and has undergone coronary artery bypass grafting in January At this time the patient has no cardiac complaints She does not appear to be short of breath She is tired and fatigued ROS: No fever chills or rigors, no cough, phlegm or expectoration, no nausea, vomiting or diarrhea, no hematuria, dysuria, no musculoskeletal complaints, no strokes or seizures, no skin lesions. EXAMINATION: afebrile 97.3F No orthopnea, pulse rate in the 60s blood pressure 108/65 mmHg Normal heart sounds normal S1 normal S2 Breath sounds are reduced at the bases Abdomen is soft REVIEW OF LABS, ECG & MEDICAL DATA Past history of CAD, coronary artery bypass grafting, non-Q-wave myocardial infarction the past Hypertension and dyslipidemia twelve-lead EKG shows sinus rhythm with a left bundle branch block pattern afebrile 97.3F No orthopnea, pulse rate in the 60s blood pressure 108/65 mmHg Normal heart sounds normal S1 normal S2 Breath sounds are reduced at the bases Abdomen is soft Past Medical History Past Medical History: Coronary Artery Disease (CAD), Cancer, Hyperlipidemia, Hypertension, Memory Impairment, Myocardial Infarction (MS), Osteoarthritis (OA) Additional Past Medical History / Comment(s): 01/25/21 CABG X3 Last Myocardial Infarction Date:: 01/21/21 History of Any Multi-Drug Resistant Organisms: None Reported Past Surgical History: Appendectomy, Bladder Surgery, Bowel Resection, Breast Surgery, Cholecystectomy, Coronary Bypass/CABG, Hysterectomy, Orthopedic Surgery, Tubal Ligation Additional Past Surgical History / Comment(s): cataractsurgery x2 with lens implants, masectomy on right breast, bowel resection with colostomy and reversal, bladder suspension, left knee replacement, skin cancer removed from right ear Past Anesthesia/Blood Transfusion Reactions: No Reported Reaction Past Psychological History: No Psychological Hx Reported, Depression Smoking Status: Former smoker, Unknown if ever smoked Past Alcohol Use History: None Reported Past Drug Use History: None Reported - Past Family History Father Family Medical History: AFIB, Congestive Heart Failure (CHF) Mother Family Medical History: Cancer Additional Family Medical History / Comment(s): breast cancer with mets Medications and Allergies Home Medications Medication Instructions Recorded Confirmed Type Amitriptyline HCl [Elavil] 20 mg PO HS 01/21/21 05/18/21 History Cholecalciferol [Vitamin D3 (25 50 mcg PO DAILY 01/21/21 05/18/21 History Mcg = 1000 Iu)] Rosuvastatin [Crestor] 20 mg PO HS 01/21/21 05/18/21 History buPROPion [Wellbutrin] 75 mg PO DAILY 01/21/21 05/18/21 History methIMAzole [Tapazole] 15 mg PO DAILY tab 01/30/21 05/18/21 Rx Losartan [Cozaar] 25 mg PO DAILY 30 Days #30 tab 03/08/21 05/18/21 Rx Apixaban [Eliquis] 2.5 mg PO BID #60 tab 03/17/21 05/18/21 Rx Amiodarone [Cordarone] 200 mg PO DAILY #30 tab 03/19/21 05/18/21 Rx ALPRAZolam [Xanax] 0.5 mg PO BID 03/31/21 05/18/21 History Melatonin 5 mg PO HS PRN 04/05/21 05/18/21 History Sertraline [Zoloft] 100 mg PO DAILY 04/05/21 05/18/21 History Acetaminophen Tab [Tylenol Tab] 1,000 mg PO Q8H PRN 05/18/21 05/18/21 History Benzonatate [Tessalon Perles] 100 mg PO TID PRN 05/18/21 05/18/21 History Furosemide [Lasix] 40 mg PO BID 05/18/21 05/18/21 History Ipratropium-Albuterol Nebulize 3 ml INHALATION RT-QID 05/18/21 05/18/21 History [Duoneb 0.5 mg-3 mg/3 ml Soln] Metoprolol Tartrate [Lopressor] 12.5 mg PO BID 05/18/21 05/18/21 History Midodrine HCl [ProAmatine] 10 mg PO AC-BID 05/18/21 05/18/21 History Potassium Chloride [Potassium 20 meq PO DAILY 05/18/21 05/18/21 History Chloride ER] Allergies Allergy/AdvReac Type Severity Reaction Status Date / Time No Known Allergies Allergy Verified 05/18/21 14:33 Physical Exam Vitals: Vital Signs Temp Pulse Pulse Resp BP BP Pulse Ox 05/19/21 08:35 68 05/19/21 08:24 66 05/19/21 04:00 97.3 F L 60 12 108/65 97 05/19/21 00:00 96.4 F L 54 L 13 100/52 98 05/18/21 20:05 97.5 F L 59 L 18 108/49 98 05/18/21 19:00 57 L 18 05/18/21 17:00 18 93/44 05/18/21 15:50 60 18 104/59 98 05/18/21 14:00 60 18 114/71 05/18/21 13:00 62 16 114/62 100 05/18/21 12:28 97.2 F L 65 18 110/58 99 Intake and Output 05/18/21 05/19/21 05/19/21 22:59 06:59 14:59 Intake Total 70 Output Total 700 Balance -630 Intake: IV 70 0.9 NS 70 Output: Urine 700 Other: Weight 60.6 kg 61.2 kg Results 05/19/21 03:33 05/19/21 03:33 Cardiac Enzymes 05/18/21 05/18/21 05/18/21 Range/Units 13:11 13:11 17:50 AST 123 H (14-36) U/L Troponin I 0.023 0.038 H* (0.000-0.034) ng/mL 05/18/21 Range/Units 21:50 AST (14-36) U/L Troponin I 0.025 (0.000-0.034) ng/mL Coagulation 05/18/21 Range/Units 13:11 PT 10.8 (9.0-12.0) sec APTT 25.7 (22.0-30.0) sec Lipids 05/19/21 Range/Units 03:33 Triglycerides 161.00 H (0.00-149.00) mg/dL Cholesterol 126.00 (0.00-200.00) mg/dL HDL Cholesterol 33.70 L (40.00-60.00) mg/dL Cholesterol/HDL Ratio 3.74 Ratio CBC 05/18/21 05/19/21 Range/Units 13:11 03:33 WBC 11.6 H 7.5 (3.8-10.6) k/uL RBC 5.24 4.87 (3.80-5.40) m/uL Hgb 12.4 11.7 (11.4-16.0) gm/dL Hct 39.5 37.0 (34.0-46.0) % Plt Count 464 H 382 (150-450) k/uL Comprehensive Metabolic Panel 05/18/21 05/19/21 Range/Units 13:11 03:33 Sodium 132 L 129 L (137-145) mmol/L Potassium 5.1 4.0 (3.5-5.1) mmol/L Chloride 97 L 96 L (98-107) mmol/L Carbon Dioxide 26 24 (22-30) mmol/L BUN 20 H 19 H (7-17) mg/dL Creatinine 1.44 H 1.35 H (0.52-1.04) mg/dL Glucose 140 H 103 H (74-99) mg/dL Calcium 9.2 8.6 (8.4-10.2) mg/dL AST 123 H (14-36) U/L ALT 66 H (4-34) U/L Alkaline Phosphatase 93 (38-126) U/L Total Protein 6.5 (6.3-8.2) g/dL Albumin 3.6 (3.5-5.0) g/dL Current Medications Generic Name Dose Route Start Last Admin Trade Name Freq PRN Reason Stop Dose Admin Acetaminophen 650 mg 05/18/21 16:15 Acetaminophen Tab 325 Mg Tab PO Q4HR PRN Pain Albuterol/Ipratropium 3 ml 05/18/21 20:00 05/19/21 11:57 Ipratropium-Albuterol 3 Ml Neb INHALATION Not Given RT-QID JAZ Alprazolam 0.5 mg 05/18/21 21:00 05/19/21 10:15 Alprazolam 0.5 Mg Tab PO 0.5 mg BID JAZ Administration Amiodarone HCl 200 mg 05/19/21 09:00 05/19/21 10:15 Amiodarone 200 Mg Tab PO 200 mg DAILY JAZ Administration Amitriptyline HCl 20 mg 05/18/21 21:00 05/18/21 20:25 Amitriptyline Hcl 10 Mg Tab PO 20 mg HS JAZ Administration Aspirin 81 mg 05/19/21 09:00 05/19/21 11:54 Aspirin 81 Mg PO 81 mg DAILY JAZ Administration Atorvastatin Calcium 40 mg 05/18/21 21:00 05/18/21 20:07 Atorvastatin 40 Mg Tab PO 40 mg HS JAZ Administration Benzonatate 100 mg 05/18/21 16:18 Benzonatate 100 Mg Cap PO TID PRN Cough Bupropion HCl 75 mg 05/19/21 09:00 05/19/21 10:16 Bupropion 75 Mg Tab PO 75 mg DAILY JAZ Administration Cholecalciferol 50 mcg 05/19/21 09:00 05/19/21 10:16 Cholecalciferol 25 Mcg (1000 Iu) Tablet PO 50 mcg DAILY JAZ Administration Furosemide 40 mg 05/18/21 18:00 05/19/21 10:16 Furosemide 40 Mg Tab PO 40 mg BID@0900,1600 JAZ Administration Losartan Potassium 25 mg 05/19/21 09:00 05/19/21 10:16 Losartan 25 Mg Tab PO 25 mg DAILY JAZ Administration Melatonin 5 mg 05/18/21 16:18 Melatonin 5 Mg Tablet PO HS PRN Insomnia Methimazole 15 mg 05/19/21 09:00 05/19/21 10:16 Methimazole 5 Mg Tab PO 15 mg DAILY JAZ Administration Metoprolol Tartrate 12.5 mg 05/18/21 21:00 05/19/21 10:16 Metoprolol Tartrate 12.5 Mg Tab PO 12.5 mg BID JAZ Administration Midodrine 10 mg 05/18/21 17:30 05/19/21 07:56 Midodrine 5 Mg Tab PO 10 mg AC-BID JAZ Administration Morphine Sulfate 2 mg 05/18/21 16:15 Morphine Sulfate 2 Mg/Ml Syringe IVP Q2H PRN Pain Nitroglycerin 0.4 mg 05/18/21 16:15 Nitroglycerin Sl Tabs 0.4 Mg Tab SUBLINGUAL Q5M PRN Chest Pain Nitroglycerin 1 inch 05/18/21 18:00 05/19/21 07:57 Nitroglycerin Oint 1 Inch/Gm Packet TOPICAL 1 inch Q6HR JAZ Administration Sertraline HCl 100 mg 05/19/21 09:00 05/19/21 10:17 Sertraline 100 Mg Tab PO 100 mg DAILY JAZ Administration Intake and Output 05/18/21 05/19/21 05/19/21 22:59 06:59 14:59 Intake Total 70 Output Total 700 Balance -630 Intake: IV 70 0.9 NS 70 Output: Urine 700 Other: Weight 60.6 kg 61.2 kg 05/19/21 03:33 05/19/21 03:33
--- NOTE | 2021-05-19 12:52 | XR ---
EXAMINATION TYPE: XR chest 1V portable DATE OF EXAM: 05/19/2021 COMPARISON: 05/18/2021 HISTORY: 76 years Female. STUDY INDICATION GIVEN: post thoracentesis . TECHNIQUE: AP chest radiograph IMPRESSION: Stable small right pleural effusion. Small left pleural effusion decreased in the interval. Bibasilar opacities could be on the basis of atelectasis or infiltrates. Mild hyperinflation of the lungs and cystic changes in the lung apices suggesting chronic lung diseas e COPD/emphysema. Significant change. Mild prominence of the heart size, difficult to adequately evaluate due to above findings. No signifi cant change since prior. Intrathoracic aortic calcifications and prior surgical changes in the region of the left mediastinum. Generalized osteopenia without acute osseous abnormalities.
--- NOTE | 2021-05-19 13:11 | P.PN ---
Subjective Progress Note Date: 05/19/21 Patient reports improvement in pain. Objective - Vital Signs Vital signs: Vital Signs Temp 97.3 F L 05/19/21 04:00 Pulse 68 05/19/21 08:35 Resp 12 05/19/21 04:00 BP 108/65 05/19/21 04:00 Pulse Ox 97 05/19/21 04:00 Intake & Output 05/18/21 05/19/21 05/19/21 18:59 06:59 18:59 Intake Total 70 Output Total 700 Balance -630 Weight 58.967 kg 61.2 kg Intake: IV 70 0.9 NS 70 Output: Urine 700 - Exam Gen: awake, alert HEENT: normocephalic, atraumatic, good hearing acuity, moist mucous membranes Resp: good air exchange, breathing comfortably with no accessory muscle use, diminished breath sounds bilaterally with crackles CVS: good distal perfusion x 4, regular rate and rhythm without murmurs GI: soft, NTTP, ND : no SPT, no CVAT, casey catheter not present MSK: Tenderness to palpation near T10 to T11 with palpable pain in the lower ribs of the right side on the left side, no pitting edema Neuro: non-focal, moving all extremities Psych: cooperative, euthymic mood - Labs CBC & Chem 7: 05/19/21 03:33 05/19/21 03:33 Labs: Abnormal Lab Results - Last 24 Hours (Table) 05/18/21 05/18/21 05/18/21 Range/Units 13:11 13:11 17:50 WBC 11.6 H (3.8-10.6) k/uL MCV 75.4 L (80.0-100.0) fL MCH 23.8 L (25.0-35.0) pg RDW 16.2 H (11.5-15.5) % Plt Count 464 H (150-450) k/uL Neutrophils # 9.4 H (1.3-7.7) k/uL Sodium 132 L (137-145) mmol/L Chloride 97 L (98-107) mmol/L BUN 20 H (7-17) mg/dL Creatinine 1.44 H (0.52-1.04) mg/dL Glucose 140 H (74-99) mg/dL POC Glucose (mg/dL) (75-99) mg/dL Magnesium 2.5 H (1.6-2.3) mg/dL AST 123 H (14-36) U/L ALT 66 H (4-34) U/L Troponin I 0.038 H* (0.000-0.034) ng/mL Triglycerides (0.00-149.00) mg/dL HDL Cholesterol (40.00-60.00) mg/dL 05/18/21 05/19/21 05/19/21 Range/Units 22:26 03:33 03:33 WBC (3.8-10.6) k/uL MCV 76.0 L (80.0-100.0) fL MCH 23.9 L (25.0-35.0) pg RDW 15.9 H (11.5-15.5) % Plt Count (150-450) k/uL Neutrophils # (1.3-7.7) k/uL Sodium 129 L (137-145) mmol/L Chloride 96 L (98-107) mmol/L BUN 19 H (7-17) mg/dL Creatinine 1.35 H (0.52-1.04) mg/dL Glucose 103 H (74-99) mg/dL POC Glucose (mg/dL) 103 H (75-99) mg/dL Magnesium 2.5 H (1.6-2.3) mg/dL AST (14-36) U/L ALT (4-34) U/L Troponin I (0.000-0.034) ng/mL Triglycerides 161.00 H (0.00-149.00) mg/dL HDL Cholesterol 33.70 L (40.00-60.00) mg/dL Assessment and Plan Assessment: Back pain -Admit inpatient, telemetry -Morphine when necessary for pain control -Nausea control -PT -X-ray of the T-spine/L spine to rule out compression fracture was negative CAD status post CABG Paroxysmal atrial fibrillation Hypertension Hyperlipidemia -Cardiology consulted -Resume home medications: -Amiodarone, can be reduced to 100 mg on discharge -Eliquis -Aspirin, statin -Lasix -Losartan, metoprolol Chronic kidney disease, stage III B -Resume Midodrine -Avoid nephrotoxins Bilateral pleural effusions, loculated Chronic respiratory failure -Oxygen as needed -Duo nebs as needed -Pulmonary consulted -Consider cardiovascular surgery to place chest tube with consideration of TPA to clear loculations Diabetes type 2 Hyperthyroidism Mood disorder -Home medications reviewed and reconciled Patient is a full code, note: Patient's paperwork expresses DO NOT RESUSCITATE DO NOT INTUBATE, however, patient explicitly told me that she would like to reverse this decision at this time
--- NOTE | 2021-05-19 13:18 | PCN ---
PROCEDURE NOTE LEFT-SIDED THORACENTESIS: PREOPERATIVE DIAGNOSIS: Left pleural effusion. POSTOPERATIVE DIAGNOSIS: Left pleural effusion. OPERATORS: 1. Dr. Cole. 2. Dr. Schrader. PROCEDURE DESCRIPTION: A timeout was completed verifying correct patient, procedure, site, positioning , and implant (s) or special equipment if applicable. There was informed consent and universal timeout. Ultrasound guidance was used to brooks the posterior chest and appropriate fluid pocket was identified and marked. Patient was positioned, prepped and draped in usual sterile fashion. Lidocaine was used to anesthetize the area. A thoracentesis catheter was introduced into the left pleural space and 1060 mL of fluid was removed. The fluid was not fit for analysis. Blood loss was none. The patient tolerated the procedure well. There was no immediate complication. A chest x-ray will be ordered to evaluate for pneumothorax. Total Fluid Removed: 1060 mL MMODL / IJN: [id number] /
--- NOTE | 2021-05-19 13:22 | P.PN ---
Subjective Progress Note Date: 05/19/21 This is a very pleasant 76-year-old female patient who follows with Dr. Florentino as her primary care provider. She has a history of non-ST elevated myocardial infarction, coronary artery disease, requiring off-pump three-vessel CABG on 01/25/2021, hyperthyroidism, borderline diabetes mellitus, hypertension, hyperlipidemia, history of breast cancer status post right mastectomy with chemotherapy, diverticulitis status post colostomy and subsequent reversal, and previous history of smoking, atrial fibrillation anticoagulated with Eliquis. She had undergone coronary artery bypass surgery back in January 2021 and his Several Readmissions for Abdominal Discomfort. She's Also Been Noted to Have Recurrent Pleural Effusions. She had a right-sided thoracentesis on 04/07/2021 with 1100 mL of yellow fluid removed. Negative for malignancy. And another right-sided thoracentesis done on 04/09/2021. Negative for malignancy. She presented here to the emergency room today with complaints of abdominal dis comfort radiating up into her chest with pain through to her back. X-rays again showing small to moderate right-sided pleural effusion and a moderate to large left-sided pleural effusion now. She scan of the abdomen revealed a large loculated bilateral pleural effusions increased from previous. Cardiomegaly. Left renal cortical thinning. No evidence of bowel obstruction. X-rays of the thoracic and lumbar spine reveals no evidence of fracture. White count 11.6. Hemoglobin 12.4. Platelets 464. Sodium 132. Potassium 5.1. Creatinine 1.44. AST 2123. ALT 66. Troponins 0.0-3, 0.038. Jin virus by PCR not detected. Seen today in the emergency room currently resting fairly comfortably on a stretcher. She is maintaining O2 saturations up to 98% on 4 L/m per nasal cannula. She's been afebrile. Hemodynamically stable. The patient is seen today 05/19/2021 in follow-up in the intensive care unit. She is currently sitting up in bed. Awake and alert in no acute distress. She is maintaining O2 saturations in the 90s on 4 L/m per nasal cannula. Ultrasound of the chest did reveal a 7.1 cm pocket on the right as well as a 10.9 cm pocket on the left. It comes and 0.5. Hemoglobin 11.7. Platelets 382. Sodium 129. Potassium 4.0. Creatinine 1.35. Jin virus not detected. She is continued on oral diuretics. A left-sided thoracentesis was performed today by Dr. Cole. 1060 ML's of turbid yellow fluid removed. Not sent for analysis as she has had 2 prior thoracentesis on the right. Pathology had been negative for malignancy. Objective - Vital Signs Vital signs: Vital Signs Temp 97.3 F L 05/19/21 04:00 Pulse 68 05/19/21 08:35 Resp 12 05/19/21 04:00 BP 108/65 05/19/21 04:00 Pulse Ox 97 05/19/21 04:00 Intake & Output 05/18/21 05/19/21 05/19/21 18:59 06:59 18:59 Intake Total 70 Output Total 700 Balance -630 Weight 58.967 kg 61.2 kg Intake: IV 70 0.9 NS 70 Output: Urine 700 - Exam GENERAL EXAM: Alert, pleasant 76-year-old female patient, on 4 L nasal cannula, fairly comfortable in no apparent distress. HEAD: Normocephalic. EYES: Normal reaction of pupils, equal size. NOSE: Clear with pink turbinates. THROAT: No erythema or exudates. NECK: No masses, no JVD. CHEST: No chest wall deformity. LUNGS: Equal air entry with crackles in the bases left greater than right. Diminished. CVS: S1 and S2 normal with no audible murmur, regular rhythm. ABDOMEN: No hepatosplenomegaly, normal bowel sounds, no guarding or rigidity. SPINE: No scoliosis or deformity SKIN: No rashes CENTRAL NERVOUS SYSTEM: No focal deficits, tone is normal in all 4 extremities. EXTREMITIES: There is no peripheral edema. No clubbing, no cyanosis. Peripheral pulses are intact. - Labs CBC & Chem 7: 05/19/21 03:33 05/19/21 03:33 Labs: Abnormal Lab Results - Last 24 Hours (Table) 05/18/21 05/18/21 05/18/21 Range/Units 13:11 13:11 17:50 WBC 11.6 H (3.8-10.6) k/uL MCV 75.4 L (80.0-100.0) fL MCH 23.8 L (25.0-35.0) pg RDW 16.2 H (11.5-15.5) % Plt Count 464 H (150-450) k/uL Neutrophils # 9.4 H (1.3-7.7) k/uL Sodium 132 L (137-145) mmol/L Chloride 97 L (98-107) mmol/L BUN 20 H (7-17) mg/dL Creatinine 1.44 H (0.52-1.04) mg/dL Glucose 140 H (74-99) mg/dL POC Glucose (mg/dL) (75-99) mg/dL Magnesium 2.5 H (1.6-2.3) mg/dL AST 123 H (14-36) U/L ALT 66 H (4-34) U/L Troponin I 0.038 H* (0.000-0.034) ng/mL Triglycerides (0.00-149.00) mg/dL HDL Cholesterol (40.00-60.00) mg/dL 05/18/21 05/19/21 05/19/21 Range/Units 22:26 03:33 03:33 WBC (3.8-10.6) k/uL MCV 76.0 L (80.0-100.0) fL MCH 23.9 L (25.0-35.0) pg RDW 15.9 H (11.5-15.5) % Plt Count (150-450) k/uL Neutrophils # (1.3-7.7) k/uL Sodium 129 L (137-145) mmol/L Chloride 96 L (98-107) mmol/L BUN 19 H (7-17) mg/dL Creatinine 1.35 H (0.52-1.04) mg/dL Glucose 103 H (74-99) mg/dL POC Glucose (mg/dL) 103 H (75-99) mg/dL Magnesium 2.5 H (1.6-2.3) mg/dL AST (14-36) U/L ALT (4-34) U/L Troponin I (0.000-0.034) ng/mL Triglycerides 161.00 H (0.00-149.00) mg/dL HDL Cholesterol 33.70 L (40.00-60.00) mg/dL Assessment and Plan Assessment: 1 Abdominal pain radiating to her back. Computed tomography scan of the abdomen revealed no acute abdominal abnormalities. X-rays of the lumbar and thoracic spine revealed no evidence of fracture 2 Acute hypoxic respiratory failure secondary to an acute exacerbation of chronic systolic congestive heart failure and bilateral pleural effusions and the patient has had previous thoracentesis on the right 2. Negative for malignancy. Left-sided thoracentesis performed 05/19/2021 with 1060 ML's removed. 3 Coronary artery disease status post off-pump CABG 3 with a WESLEY to the LAD, left radial artery graft to the up to his marginal, reverse SVG to the posterior lateral branch of the right coronary artery, and exclusion of the left atrial appendage on 01/25/2021 4 Ischemic cardiomyopathy with ejection fraction 30-35% 5 Paroxysmal atrial fibrillation, on amiodarone, anticoagulated with Eliquis 6 Hypertension 7 Hyperlipidemia 8 Former tobacco smoker 9 History of diverticulitis, status post bowel resection, colostomy, with subsequent reversal 10 Former smoking history Plan: The patient was seen and evaluated by Dr. Cole Ultrasound reviewed Left-sided thoracentesis performed today with 1060 ML's fluid removed Continue to hold Eliquis Possible right-sided thoracentesis in a.m. Continue diuretics Titrate the FiO2 as tolerated We will continue to follow I, the cosigning physician, performed a history & physical examination of the patient. Lungs sounds crackles in the bilateral posterior bases left greater than right. Maintaining good O2 saturations in the 90s on 4 L/m per nasal cannula. I discussed the assessment and plan of care with my nurse practitioner, Precious Schrader. I attest to the above note as dictated by her.
[2021-05-19] MEDS: ONDANSETRON 4 MG/2 ML VIAL IVP PRN (14:37)
[2021-05-19] MEDS: ATORVASTATIN 40 MG TAB PO SCH (20:04)
[2021-05-19] MEDS: AMITRIPTYLINE HCL 10 MG TAB PO SCH (20:07)
[2021-05-20 03:50] LABS: Anisocytosis Slight; Basophils % (A) 0 %; Eosinophils # (A) 0.1 k/uL (0-0.7); Eosinophils % (A) 1 %; HCT 36.1 % (34.0-46.0); HGB 11.6 gm/dL (11.4-16.0); Lymphocytes # (A) 0.8 k/uL (1.0-4.8); Lymphocytes % (A) 11 %; MCH 24.7 pg (25.0-35.0); MCHC 32.1 g/dL (31.0-37.0); Mean Platelet Volume 7.3; Microcytosis Slight; Monocytes # (A) 0.5 k/uL (0-1.0); Monocytes % (A) 6 %; Neutrophils # (A) 6.2 k/uL (1.3-7.7); Neutrophils % (A) 81 %; Platelet Count 381 k/uL (150-450); RDW 16.4 % (11.5-15.5); WBC 7.7 k/uL (3.8-10.6)
[2021-05-20 04:23] LABS: Calcium 8.5 mg/dL (8.4-10.2); Magnesium 2.5 mg/dL (1.6-2.3)
[2021-05-20] MEDS: NITROGLYCERIN OINT 1 INCH/GM PACKET TOPICAL SCH ×3 (05:45→16:53)
--- NOTE | 2021-05-20 07:35 | XR ---
EXAMINATION TYPE: XR chest 1V portable DATE OF EXAM: 05/20/2021 HISTORY: Shortness of breath. COMPARISON: 05/19/2021 TECHNIQUE: Single view of the chest is submitted. FINDINGS: Demonstrated are scattered senescent parenchymal change. Basilar infiltrates and small effusions persist bilaterally without significant change. The heart is stable. Hilar and mediastinal structures are within normal limits. Degenerative changes are seen of the dorsal spine. IMPRESSION: 1. Basilar infiltrates and small effusions persist bilaterally without significant change.
--- NOTE | 2021-05-20 08:26 | P.PN ---
Subjective Progress Note Date: 05/20/21 This is a very pleasant 76-year-old female patient who follows with Dr. Florentino as her primary care provider. She has a history of non-ST elevated myocardial infarction, coronary artery disease, requiring off-pump three-vessel CABG on 01/25/2021, hyperthyroidism, borderline diabetes mellitus, hypertension, hyperlipidemia, history of breast cancer status post right mastectomy with chemotherapy, diverticulitis status post colostomy and subsequent reversal, and previous history of smoking, atrial fibrillation anticoagulated with Eliquis. She had undergone coronary artery bypass surgery back in January 2021 and his Several Readmissions for Abdominal Discomfort. She's Also Been Noted to Have Recurrent Pleural Effusions. She had a right-sided thoracentesis on 04/07/2021 with 1100 mL of yellow fluid removed. Negative for malignancy. And another right-sided thoracentesis done on 04/09/2021. Negative for malignancy. She presented here to the emergency room today with complaints of abdominal di scomfort radiating up into her chest with pain through to her back. X-rays again showing small to moderate right-sided pleural effusion and a moderate to large left-sided pleural effusion now. She scan of the abdomen revealed a large loculated bilateral pleural effusions increased from previous. Cardiomegaly. Left renal cortical thinning. No evidence of bowel obstruction. X-rays of the thoracic and lumbar spine reveals no evidence of fracture. White count 11.6. Hemoglobin 12.4. Platelets 464. Sodium 132. Potassium 5.1. Creatinine 1.44. AST 2123. ALT 66. Troponins 0.0-3, 0.038. Jin virus by PCR not detected. Seen today in the emergency room currently resting fairly comfortably on a stretcher. She is maintaining O2 saturations up to 98% on 4 L/m per nasal cannula. She's been afebrile. Hemodynamically stable. The patient is seen today 05/19/2021 in follow-up in the intensive care unit. She is currently sitting up in bed. Awake and alert in no acute distress. She is maintaining O2 saturations in the 90s on 4 L/m per nasal cannula. Ultrasound of the chest did reveal a 7.1 cm pocket on the right as well as a 10.9 cm pocket on the left. It comes and 0.5. Hemoglobin 11.7. Platelets 382. Sodium 129. Potassium 4.0. Creatinine 1.35. Jin virus not detected. She is continued on oral diuretics. A left-sided thoracentesis was performed today by Dr. Cole. 1060 ML's of turbid yellow fluid removed. Not sent for analysis as she has had 2 prior thoracentesis on the right. Pathology had been negative for malignancy. On 05/20/2021, the patient is being seen for a follow-up. The patient is known to have CAD, previous non-STEMI, previous off-pump three-vessel bypass surgery completed on 01/25/2021 in addition to hypertension, hyperlipidemia, hypert hyroidism on methimazole, diabetes mellitus and previous history of breast cancer. Patient undergone right mastectomy. The patient also has had a previous copy. Diverticulitis. Colectomy with subsequent colostomy and subsequent reversal. The patient also suffers from chronic atrial fibrillation maintained on anticoagulation with Eliquis. The patient has had readmissions following the surgery and she has undergone a right-sided thoracentesis for recurrent pleural effusion on the right and the fluid cytology has been negative for malignancy. During this current admission, the workup for the abdominal pain has been essentially negative. The patient underwent a left-sided thoracentesis yesterday but a total of 1 L of fluid was removed from the left lung. Clinically the patient is feeling well. Noted on previous thoracentesis, there was an exudate based on protein criteria and the possibility of post thoracotomy related pleural effusion was entertained. Noted the patient had also some loculation in the right lung base along with some compressive atelectasis of the right lung basilar area. The fluid cytology was negative. Noted the patient also has ischemic cardiomyopathy with an ejection fraction of 30-35%. The patient is currently on oral Lasix 40 mg by mouth twice a day. She remains off anticoagulation. She also has a component in acute kidney injury creatinine is stable. Today's evaluation, the patient is on room air oxygen. Clinically she is feeling much better. Repeat chest x-ray still showing bilateral pleural effusions, smaller in size. Clinically however she is much improved. Objective - Vital Signs Vital signs: Vital Signs Temp 98.5 F 05/20/21 04:00 Pulse 54 L 05/20/21 04:00 Resp 18 05/20/21 04:00 BP 108/47 05/20/21 04:00 Pulse Ox 98 05/20/21 04:00 Intake & Output 05/19/21 05/20/21 05/20/21 18:59 06:59 18:59 Output Total 1060 Balance -1060 Weight 63.3 kg Output: Drainage 1060 Left Upper Back 1060 Other: Voiding Method Bedside Commode Bedside Commode # Voids 1 3 - Exam GENERAL EXAM: Alert, pleasant 76-year-old female patient, on 4 L nasal cannula, fairly comfortable in no apparent distress. HEAD: Normocephalic. EYES: Normal reaction of pupils, equal size. NOSE: Clear with pink turbinates. THROAT: No erythema or exudates. NECK: No masses, no JVD. CHEST: No chest wall deformity. LUNGS: Equal air entry with crackles in the bases left greater than right. Dimi nished. CVS: S1 and S2 normal with no audible murmur, regular rhythm. ABDOMEN: No hepatosplenomegaly, normal bowel sounds, no guarding or rigidity. SPINE: No scoliosis or deformity SKIN: No rashes CENTRAL NERVOUS SYSTEM: No focal deficits, tone is normal in all 4 extremities. EXTREMITIES: There is no peripheral edema. No clubbing, no cyanosis. Peripheral pulses are intact. - Labs CBC & Chem 7: 05/20/21 03:21 05/20/21 03:21 Labs: Abnormal Lab Results - Last 24 Hours (Table) 05/19/21 05/20/21 05/20/21 Range/Units 03:33 03:21 03:21 MCV 77.0 L (80.0-100.0) fL MCH 24.7 L (25.0-35.0) pg RDW 16.4 H (11.5-15.5) % Lymphocytes # 0.8 L (1.0-4.8) k/uL Sodium 132 L (137-145) mmol/L Chloride 93 L (98-107) mmol/L BUN 19 H (7-17) mg/dL Creatinine 1.56 H (0.52-1.04) mg/dL Glucose 112 H (74-99) mg/dL Magnesium 2.5 H (1.6-2.3) mg/dL Triglycerides 161.00 H (0.00-149.00) mg/dL HDL Cholesterol 33.70 L (40.00-60.00) mg/dL Assessment and Plan Plan: 1 Abdominal pain radiating to her back. Computed tomography scan of the abdomen revealed no acute abdominal abnormalities. X-rays of the lumbar and thoracic spine revealed no evidence of fracture 2 Acute hypoxic respiratory failure secondary to an acute exacerbation of chronic systolic congestive heart failure and bilateral pleural effusions and the patient has had previous thoracentesis on the right 2. Negative for malignancy. Left-sided thoracentesis performed 05/19/2021 with 1060 ML's removed. Note that the fluid itself has developed some early loculation on previous CAT scans and this is also noted on the recent CAT scan of the abdomen now for abdominal workup. On previous evaluation, the fluid LDH was elevated consistent with an exudate and consistent with post thoracotomy effusion. 3 Coronary artery disease status post off-pump CABG 3 with a WESLEY to the LAD, left radial artery graft to the up to his marginal, reverse SVG to the posterior lateral branch of the right coronary artery, and exclusion of the left atrial appendage on 01/25/2021 4 Ischemic cardiomyopathy with ejection fraction 30-35% 5 Paroxysmal atrial fibrillation, on amiodarone, anticoagulated with Eliquis 6 Hypertension 7 Hyperlipidemia 8 Former tobacco smoker 9 History of diverticulitis, status post bowel resection, colostomy, with subsequent reversal 10 Former smoking history Plan: On today's evaluation, the patient is doing much better. The chest x-ray still showing bilateral pleural effusions although smaller in size. The fluid was exudate on previous evaluation. 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 Continue oral Lasix Check sed rate Check TSH and free T4 knowing that the patient has hyperthyroidism and currently she is on methimazole Left-sided thoracentesis performed today with 1060 ML's fluid removed on 05/11/2021 Continue to hold Eliquis Consider colchicine Titrate the FiO2 as tolerated, currently on room in oxygen We will continue to follow
[2021-05-20] MEDS: IPRATROPIUM-ALBUTEROL 3 ML NEB INHALATION SCH ×4 (09:04→19:15)
[2021-05-20] MEDS: methIMAzole 5 MG TAB PO SCH (09:56)
[2021-05-20] MEDS: FUROSEMIDE 40 MG TAB PO SCH ×2 (09:56→15:23)
[2021-05-20] MEDS: AMIODARONE 200 MG TAB PO SCH (09:56)
[2021-05-20] MEDS: MIDODRINE 5 MG TAB PO SCH ×2 (09:56→16:52)
[2021-05-20] MEDS: METOPROLOL TARTRATE 12.5 MG TAB PO SCH ×2 (09:56→21:09)
[2021-05-20] MEDS: ALPRAZolam 0.5 MG TAB PO SCH ×2 (09:56→21:09)
[2021-05-20] MEDS: ASPIRIN 81 MG PO SCH (09:56)
[2021-05-20] MEDS: LOSARTAN 25 MG TAB PO SCH (09:56)
[2021-05-20] MEDS: COLCHICINE 0.6 MG EACH PO SCH (09:56)
[2021-05-20] MEDS: SERTRALINE 100 MG TAB PO SCH (09:57)
[2021-05-20] MEDS: CHOLECALCIFEROL 25 MCG (1000 IU) TABLET PO SCH (09:57)
[2021-05-20] MEDS: buPROPion 75 MG TAB PO SCH (09:57)
--- NOTE | 2021-05-20 11:25 | P.PN ---
Subjective Progress Note Date: 05/20/21 No further dyspnea. Pain is significantly improved. Possible plan for thora today. Objective - Vital Signs Vital signs: Vital Signs Temp 98.5 F 05/20/21 04:00 Pulse 54 L 05/20/21 04:00 Resp 18 05/20/21 04:00 BP 108/47 05/20/21 04:00 Pulse Ox 98 05/20/21 04:00 Intake & Output 05/19/21 05/20/21 05/20/21 18:59 06:59 18:59 Output Total 1060 Balance -1060 Weight 63.3 kg Output: Drainage 1060 Left Upper Back 1060 Other: Voiding Method Bedside Commode Bedside Commode # Voids 1 3 - Exam Gen: awake, alert HEENT: normocephalic, atraumatic, good hearing acuity, moist mucous membranes Resp: good air exchange, breathing comfortably with no accessory muscle use, diminished breath sounds bilaterally with crackles CVS: good distal perfusion x 4, regular rate and rhythm without murmurs GI: soft, NTTP, ND : no SPT, no CVAT, casey catheter not present MSK: Tenderness to palpation near T10 to T11 with palpable pain in the lower ri bs of the right side on the left side, no pitting edema Neuro: non-focal, moving all extremities Psych: cooperative, euthymic mood - Labs CBC & Chem 7: 05/20/21 03:21 05/20/21 03:21 Labs: Abnormal Lab Results - Last 24 Hours (Table) 05/19/21 05/20/21 05/20/21 Range/Units 03:33 03:21 03:21 MCV 77.0 L (80.0-100.0) fL MCH 24.7 L (25.0-35.0) pg RDW 16.4 H (11.5-15.5) % Lymphocytes # 0.8 L (1.0-4.8) k/uL Sodium 132 L (137-145) mmol/L Chloride 93 L (98-107) mmol/L BUN 19 H (7-17) mg/dL Creatinine 1.56 H (0.52-1.04) mg/dL Glucose 112 H (74-99) mg/dL Magnesium 2.5 H (1.6-2.3) mg/dL Triglycerides 161.00 H (0.00-149.00) mg/dL HDL Cholesterol 33.70 L (40.00-60.00) mg/dL Assessment and Plan Assessment: Back pain -Admit inpatient, telemetry -Morphine when necessary for pain control -Nausea control -PT -X-ray of the T-spine/L spine to rule out compression fracture was negative CAD status post CABG Paroxysmal atrial fibrillation Hypertension Hyperlipidemia -Cardiology consulted -Resume home medications: -Amiodarone, can be reduced to 100 mg on discharge -Eliquis -Aspirin, statin -Lasix -Losartan, metoprolol Chronic kidney disease, stage III B -Resume Midodrine -Avoid nephrotoxins Bilateral pleural effusions, loculated Chronic respiratory failure -Oxygen as needed -Duo nebs as needed -Pulmonary consulted -s/p thora 05/19 with 1L fluid removed. Diabetes type 2 Hyperthyroidism Mood disorder -Home medications reviewed and reconciled Patient is a full code, note: Patient's paperwork expresses DO NOT RESUSCITATE DO NOT INTUBATE, however, patient explicitly told me that she would like to reverse this decision at this time
--- NOTE | 2021-05-20 13:20 | PN ---
PROGRESS NOTE FOLLOW-UP NOTE: Jenny is a 76-year-old lady with history of coronary artery disease, status post CABG, recurrent pleural effusions with loculated effusion, status post prior thoracentesis, who was admitted to hospital with shortness of breath and vague abdominal discomfort. At the time of my evaluation this morning, patient appears comfortable at rest, hemodynamically stable, saturating well. She is frustrated with these recurrent episodes of pleural effusions that she has had. Patient had a thoracentesis on April 07 and April 09. Patient underwent left-sided thoracentesis on this admission and she had 1000 mL removed. She is not short of breath anymore. On exam, afebrile. Heart rate is 54 beats per minute. Blood pressure is 108/47, respiratory rate 18, O2 saturation 98% on 2 L. There is no jugular venous distention. Chest exam reveals diminished air entry at the bases. Heart exam reveals first and second heart sounds. No gallop. No murmur. Abdomen is soft. Examination of extremities did not reveal any edema. Peripheral pulses are felt. Labs show a hemoglobin of 11.6, platelet count is 380. Potassium is 4, creatinine is 1.56. ASSESSMENT: 1. Coronary artery disease, status post coronary artery bypass grafting. 2. Recurrent pleural effusions, status post thoracenteses. 3. Ischemic cardiomyopathy. 4. Paroxysmal atrial fibrillation. PLAN: Patient will continue on current cardiac medications, including aspirin, Lipitor, Lasix, Cozaar and metoprolol. Resume Eliquis. We are not thinking of doing any more thoracentesis. MMODL / IJN: [id number] /
[2021-05-20] MEDS ORDERED: bisacodyL 5 MG TABLET.DR PO STA (20:42)
[2021-05-20] MEDS: AMITRIPTYLINE HCL 10 MG TAB PO SCH (21:09)
[2021-05-20] MEDS: ATORVASTATIN 40 MG TAB PO SCH (21:09)
[2021-05-21] MEDS: ONDANSETRON 4 MG/2 ML VIAL IVP PRN ×3 (00:22→15:57)
[2021-05-21] MEDS: NITROGLYCERIN OINT 1 INCH/GM PACKET TOPICAL SCH ×2 (00:23→06:31)
[2021-05-21] MEDS: MIDODRINE 5 MG TAB PO SCH ×2 (06:42→15:57)
[2021-05-21] MEDS: IPRATROPIUM-ALBUTEROL 3 ML NEB INHALATION SCH ×4 (07:31→19:33)
[2021-05-21 07:57] LABS: Anisocytosis Slight; Basophils % (A) 0 %; Eosinophils # (A) 0.1 k/uL (0-0.7); Eosinophils % (A) 1 %; HGB 12.2 gm/dL (11.4-16.0); Lymphocytes # (A) 1.1 k/uL (1.0-4.8); Lymphocytes % (A) 11 %; MCH 25.1 pg (25.0-35.0); MCHC 32.9 g/dL (31.0-37.0); MCV 76.2 fL (80.0-100.0); Microcytosis Slight; Monocytes # (A) 0.7 k/uL (0-1.0); Monocytes % (A) 7 %; Neutrophils % (A) 80 %; Platelet Count 527 k/uL (150-450); RBC 4.85 m/uL (3.80-5.40); RDW 16.6 % (11.5-15.5); WBC 10.1 k/uL (3.8-10.6)
[2021-05-21 07:59] LABS: Calcium 8.7 mg/dL (8.4-10.2)
[2021-05-21 08:02] LABS: Magnesium 2.6 mg/dL (1.6-2.3); Potassium 4.8 mmol/L (3.5-5.1)
[2021-05-21] MEDS: CHOLECALCIFEROL 25 MCG (1000 IU) TABLET PO SCH (08:43)
[2021-05-21] MEDS: FUROSEMIDE 40 MG TAB PO SCH ×2 (08:43→15:57)
[2021-05-21] MEDS: LOSARTAN 25 MG TAB PO SCH (08:43)
[2021-05-21] MEDS: SERTRALINE 100 MG TAB PO SCH (08:43)
[2021-05-21] MEDS: AMIODARONE 200 MG TAB PO SCH (08:43)
[2021-05-21] MEDS: ALPRAZolam 0.5 MG TAB PO SCH ×2 (08:43→20:56)
[2021-05-21] MEDS: ASPIRIN 81 MG PO SCH (08:43)
[2021-05-21] MEDS: METOPROLOL TARTRATE 12.5 MG TAB PO SCH ×2 (08:43→20:56)
[2021-05-21] MEDS: COLCHICINE 0.6 MG EACH PO SCH (08:44)
[2021-05-21] MEDS: buPROPion 75 MG TAB PO SCH (08:44)
[2021-05-21] MEDS: methIMAzole 5 MG TAB PO SCH (08:45)
--- NOTE | 2021-05-21 10:46 | P.PN ---
Subjective Progress Note Date: 05/21/21 This is a very pleasant 76-year-old female patient who follows with Dr. Florentino as her primary care provider. She has a history of non-ST elevated myocardial infarction, coronary artery disease, requiring off-pump three-vessel CABG on 01/25/2021, hyperthyroidism, borderline diabetes mellitus, hypertension, hyperlipidemia, history of breast cancer status post right mastectomy with chemotherapy, diverticulitis status post colostomy and subsequent reversal, and previous history of smoking, atrial fibrillation anticoagulated with Eliquis. She had undergone coronary artery bypass surgery back in January 2021 and his Several Readmissions for Abdominal Discomfort. She's Also Been Noted to Have Recurrent Pleural Effusions. She had a right-sided thoracentesis on 04/07/2021 with 1100 mL of yellow fluid removed. Negative for malignancy. And another right-sided thoracentesis done on 04/09/2021. Negative for malignancy. She presented here to the emergency room today with complaints of abdominal di scomfort radiating up into her chest with pain through to her back. X-rays again showing small to moderate right-sided pleural effusion and a moderate to large left-sided pleural effusion now. She scan of the abdomen revealed a large loculated bilateral pleural effusions increased from previous. Cardiomegaly. Left renal cortical thinning. No evidence of bowel obstruction. X-rays of the thoracic and lumbar spine reveals no evidence of fracture. White count 11.6. Hemoglobin 12.4. Platelets 464. Sodium 132. Potassium 5.1. Creatinine 1.44. AST 2123. ALT 66. Troponins 0.0-3, 0.038. Jin virus by PCR not detected. Seen today in the emergency room currently resting fairly comfortably on a stretcher. She is maintaining O2 saturations up to 98% on 4 L/m per nasal cannula. She's been afebrile. Hemodynamically stable. The patient is seen today 05/19/2021 in follow-up in the intensive care unit. She is currently sitting up in bed. Awake and alert in no acute distress. She is maintaining O2 saturations in the 90s on 4 L/m per nasal cannula. Ultrasound of the chest did reveal a 7.1 cm pocket on the right as well as a 10.9 cm pocket on the left. It comes and 0.5. Hemoglobin 11.7. Platelets 382. Sodium 129. Potassium 4.0. Creatinine 1.35. Jin virus not detected. She is continued on oral diuretics. A left-sided thoracentesis was performed today by Dr. Cole. 1060 ML's of turbid yellow fluid removed. Not sent for analysis as she has had 2 prior thoracentesis on the right. Pathology had been negative for malignancy. On 05/20/2021, the patient is being seen for a follow-up. The patient is known to have CAD, previous non-STEMI, previous off-pump three-vessel bypass surgery completed on 01/25/2021 in addition to hypertension, hyperlipidemia, hypert hyroidism on methimazole, diabetes mellitus and previous history of breast cancer. Patient undergone right mastectomy. The patient also has had a previous copy. Diverticulitis. Colectomy with subsequent colostomy and subsequent reversal. The patient also suffers from chronic atrial fibrillation maintained on anticoagulation with Eliquis. The patient has had readmissions following the surgery and she has undergone a right-sided thoracentesis for recurrent pleural effusion on the right and the fluid cytology has been negative for malignancy. During this current admission, the workup for the abdominal pain has been essentially negative. The patient underwent a left-sided thoracentesis yesterday but a total of 1 L of fluid was removed from the left lung. Clinically the patient is feeling well. Noted on previous thoracentesis, there was an exudate based on protein criteria and the possibility of post thoracotomy related pleural effusion was entertained. Noted the patient had also some loculation in the right lung base along with some compressive atelectasis of the right lung basilar area. The fluid cytology was negative. Noted the patient also has ischemic cardiomyopathy with an ejection fraction of 30-35%. The patient is currently on oral Lasix 40 mg by mouth twice a day. She remains off anticoagulation. She also has a component in acute kidney injury creatinine is stable. Today's evaluation, the patient is on room air oxygen. Clinically she is feeling much better. Repeat chest x-ray still showing bilateral pleural effusions, smaller in size. Clinically however she is much improved. 05/21/2021, the patient is being seen for a follow-up. The patient underwent a multiple thoracentesis most recently on the left. A total of 1 fluid was removed. 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 Currently she is on room air oxygen. She is not having any major respiratory difficulties. She is also on oral Lasix 40 mg twice a day. We opted not to drain the right lung for the time being. She has no complaints for now. In terms of her blood work, the patient has normal hemoglobin of 12.2, white cell count of 10.1. Sodium is at 132. Creatinine is stable at 1.5 with a BUN of 22. Currently she is on colchicine 0.6 mg on a daily basis. She is also on routine cardiac medications. She is on aspirin 81 mg by mouth daily, she is on Lasix 40 mg by mouth twice a day. She is on metoprolol 12.5 mg by mouth twice a day. Objective - Vital Signs Vital signs: Vital Signs Temp 97.7 F 05/21/21 08:00 Pulse 62 05/21/21 08:00 Resp 16 05/21/21 08:00 BP 113/59 05/21/21 08:00 Pulse Ox 95 05/21/21 08:00 Intake & Output 05/20/21 05/21/21 05/21/21 18:59 06:59 18:59 Intake Total 20 10 Balance 20 10 Intake: IV 20 10 Invasive Line 2 20 10 Other: Voiding Method Bedside Commode Toilet # Voids 1 - Exam GENERAL EXAM: Alert, pleasant 76-year-old female patient, on 4 L nasal cannula, fairly comfortable in no apparent distress. HEAD: Normocephalic. EYES: Normal reaction of pupils, equal size. NOSE: Clear with pink turbinates. THROAT: No erythema or exudates. NECK: No masses, no JVD. CHEST: No chest wall deformity. LUNGS: Equal air entry with crackles in the bases left greater than right. Diminished. CVS: S1 and S2 normal with no audible murmur, regular rhythm. ABDOMEN: No hepatosplenomegaly, normal bowel sounds, no guarding or rigidity. SPINE: No scoliosis or deformity SKIN: No rashes CENTRAL NERVOUS SYSTEM: No focal deficits, tone is normal in all 4 extremities. EXTREMITIES: There is no peripheral edema. No clubbing, no cyanosis. Peripheral pulses are intact. - Labs CBC & Chem 7: 05/21/21 06:18 05/21/21 06:18 Labs: Abnormal Lab Results - Last 24 Hours (Table) 05/21/21 05/21/21 Range/Units 06:18 06:18 MCV 76.2 L (80.0-100.0) fL RDW 16.6 H (11.5-15.5) % Plt Count 527 H (150-450) k/uL Neutrophils # 8.0 H (1.3-7.7) k/uL Sodium 132 L (137-145) mmol/L Chloride 94 L (98-107) mmol/L BUN 22 H (7-17) mg/dL Creatinine 1.52 H (0.52-1.04) mg/dL Glucose 104 H (74-99) mg/dL Magnesium 2.6 H (1.6-2.3) mg/dL Assessment and Plan Plan: 1 Abdominal pain radiating to her back. Computed tomography scan of the abdomen revealed no acute abdominal abnormalities. X-rays of the lumbar and thoracic spine revealed no evidence of fracture 2 Acute hypoxic respiratory failure secondary to an acute exacerbation of chronic systolic congestive heart failure and bilateral pleural effusions and the patient has had previous thoracentesis on the right 2. Negative for malignancy. Left-sided thoracentesis performed 05/19/2021 with 1060 ML's removed. Note that the fluid itself has developed some early loculation on previous CAT scans and this is also noted on the recent CAT scan of the abdomen now for abdominal workup. On previous evaluation, the fluid LDH was elevated consistent with an exudate and consistent with post thoracotomy effusion. 3 Coronary artery disease status post off-pump CABG 3 with a WESLEY to the LAD, left radial artery graft to the up to his marginal, reverse SVG to the posterior lateral branch of the right coronary artery, and exclusion of the left atrial appendage on 01/25/2021 4 Ischemic cardiomyopathy with ejection fraction 30-35% 5 Paroxysmal atrial fibrillation, on amiodarone, anticoagulated with Eliquis 6 Hypertension 7 Hyperlipidemia 8 Former tobacco smoker 9 History of diverticulitis, status post bowel resection, colostomy, with subsequent reversal 10 Former smoking history Plan: On today's evaluation, the patient is stable and she is currently on room air oxygen. 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 The patient was started on colchicine. She is illness the pulmonary physician I know her Continue oral Lasix Check sed rate Check TSH and free T4 knowing that the patient has hyperthyroidism and currently she is on methimazole Left-sided thoracentesis performed today with 1060 ML's fluid removed on 05/11/2021 Continue Eliquis colchicine 0.6 mg daily Titrate the FiO2 as tolerated, currently on room in oxygen We will continue to follow , possible home today
[2021-05-21] MEDS: APIXABAN 2.5 MG TABLET PO SCH ×2 (11:44→20:56)
[2021-05-21] MEDS ORDERED: SERTRALINE 50 MG TAB PO STA (13:14)
[2021-05-21] MEDS ORDERED: busPIRone HCl 10 MG TAB PO PRN (13:15)
--- NOTE | 2021-05-21 13:24 | P.CN ---
Psychiatric Consult - . Consult date: 05/21/21 Consult:: 05/21/21 13:15 IDENTIFYING DATA: This patient is a 76-year-old female currently lives with her daughter, has 2 kids. REASON FOR REFERRAL: Psychiatry was consulted for depression HISTORY OF PRESENT ILLNESS: The patient presented to the hospital initially on 05/18 for complaints of abdominal pain and chest pain. Patient has a recent history of coronary artery disease with a CABG and January 2021. She apparently has had multiple hospitalizations since then. She had a thoracentesis performed on her left side and a recurrent pleural effusion. Patient's nurse states that patient has been mad at staff and refusing lab work. She has been refusing to go to rehab. Apparently the daughter had called and stated that she has a history of depression. Patient was seen at the bedside and agreeable to speak to caption writer. She had a soft tone in the constricted affect. She claims that she is feeling tired and feeling somewhat depressed. She states that she is overwhelmed and angry with the staff however was fairly vague as to why. She claimed that she has been moved several times throughout this hospital and has not had good answers as to what's going on with her medical problems. She states that she is also having an increase in her anxiety. She claims that she sees Dr. Dill as her psychiatrist for several years now has been giving her medications. She claims that she was having abdominal pain and recently had surgery and has been in and out of the hospital 8 times since January. She claims that she is having multiple medical problems and is worried about them. She claims that she is taking her medications at home. She claims that her sleep has been on and off. She states that she has a fair appetite. She claims that she is angry with staff. At this time patient denies any suicidal or homical ideations, intent or plan. Patient denies any auditory, visual hallucinations and denies any paranoia or delusions. Patients admits to using no recreational drugs or cigarettes. PAST PSYCHIATRIC HISTORY: Patient has a a history of depression and anxiety. Patient is on Elavil, Zoloft, Wellbutrin, Xanax and melatonin. Patient denies any previous psychiatric hospitalizations. Patient currently sees Dr. Dill as her psychiatrist in the outpatient setting. Patient denies any history of suicide attempts in the past. Past Medical History: Coronary Artery Disease (CAD), Cancer, Hyperlipidemia, Hypertension, Memory Impairment, Myocardial Infarction (SD), Osteoarthritis (OA) Additional Past Medical History / Comment(s): 01/25/21 CABG X3 ALLERGIES: as per EMR. CHEMICAL DEPENDENCY HISTORY: as per HPI. FAMILY PSYCHIATRIC/SUBSTANCE USE HISTORY: denies SOCIAL HISTORY: Patient was born and raised in [facility], moved to [place] and then to [place]. She states that she currently lives with her daughter and recently sold her house. She states that she has 2 kids. She claims that she has never been to [facility] or [facility]. She states that she completed high school and did some college and coding. 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 MENTAL STATUS EXAM: General Appearance: Patient appears to be thin, elderly, stated age is alert, directable. somewhat cooperative. Patient appears to have fair hygiene and grooming wearing hospital gown with poor eye contact. Behavior: Patient is calmly lying in bed without any agitated behavior. constri cted Speech: Patient's speech is fluent and nonpressured. monotone. soft tone. Mood/Affect: Patient reports their mood is "depressed and anxious", affect is congruent and constricted Suicidality/Homicidality: Patient denies having any suicidal or homicidal ideation intent or plan. Perceptions: Patient denies any visual hallucinations and denies any auditory hallucinations Though content/process: There is no evidence of any delusional thought content and thought process goal oriented. upset with staff and hospital. Memory and concentration: AOX3, grossly intact for the purposes of this session. Can spell "WORLD" backwards Judgment and insight: poor IMPRESSIONS: Major depressive disorder, mild Generalized anxiety disorder PLAN: -At this time patient DOES NOT meet criteria for inpatient psychiatric admission. -Delirium precautions recommended with patient including - avoiding use of narcotics and [employer] sedatives, limit anticholinergic medications when possible, frequent re-orientation, minimize use of restraints, open window shades during the day and close them at night -Would recommend the following medication changes/additions: Can resume Xanax at same dose for anxiety. Increase Zoloft to 150 mg daily for mood/anxiety, discontinued Elavil as there is no need for her to antidepressants. Discontinued Wellbutrin as this may be increasing patient's anxiety. Change melatonin to 5 mg schedule daily at bedtime for sleep. added buspar 10 mg tid prn for anxiety. -Patient will be following up with Dr. Epps for MH. -Communicated plan to patient's nurse -Will continue to follow along -Please contact with any questions.
--- NOTE | 2021-05-21 13:30 | P.PN ---
Subjective Progress Note Date: 05/21/21 HISTORY OF PRESENT ILLNESS: This is a 76-year-old female who follows in the office with Dr. Hess. Patient is s/p left thoracentesis. Patient currently denies chest pain or pressure. She reports mild shortness of breath. She reports abdominal pain this morning and states she has not had a bowel movement for 5 days. Patient's vital signs remained stable. Her Eliquis has been resumed. PHYSICAL EXAM: VITAL SIGNS: Reviewed. GENERAL: Well-developed in no acute distress. NECK: Supple. No JVD or thyromegaly LUNGS: Respirations even and unlabored. Lungs essentially clear to auscultation bilaterally. HEART: Regular rate and rhythm. S1 and S2 heard. EXTREMITIES: Normal range of motion. No clubbing or cyanosis. Peripheral pulses intact. Trace lower extremity edema ASSESSMENT: Abdominal pain Recurrent pleural effusions, status post left thoracentesis Coronary artery disease with previous CABG History of ischemic cardiomyopathy Paroxysmal atrial fibrillation Hypertension Hyperlipidemia Former nicotine dependence PLAN: Continue current cardiac medications Continue anticoagulation with Eliquis Currently stable from a cardiac standpoint Further recommendations pending patient course Nurse practitioner note has been reviewed by physician. Signing provider agrees with the documented findings, assessment, and plan of care. Objective - Vital Signs Vital signs: Vital Signs Temp 97.7 F 05/21/21 08:00 Pulse 62 05/21/21 08:00 Resp 16 05/21/21 08:00 BP 113/59 05/21/21 08:00 Pulse Ox 95 05/21/21 08:00 Intake & Output 05/20/21 05/21/21 05/21/21 18:59 06:59 18:59 Intake Total 20 250 Balance 20 250 Intake: IV 20 10 Invasive Line 2 20 10 Oral 240 Other: Voiding Method Bedside Commode Toilet Toilet # Voids 1 - Labs CBC & Chem 7: 05/21/21 06:18 05/21/21 06:18 Labs: Abnormal Lab Results - Last 24 Hours (Table) 05/21/21 05/21/21 Range/Units 06:18 06:18 MCV 76.2 L (80.0-100.0) fL RDW 16.6 H (11.5-15.5) % Plt Count 527 H (150-450) k/uL Neutrophils # 8.0 H (1.3-7.7) k/uL Sodium 132 L (137-145) mmol/L Chloride 94 L (98-107) mmol/L BUN 22 H (7-17) mg/dL Creatinine 1.52 H (0.52-1.04) mg/dL Glucose 104 H (74-99) mg/dL Magnesium 2.6 H (1.6-2.3) mg/dL
--- NOTE | 2021-05-21 14:35 | P.PN ---
Subjective Progress Note Date: 05/21/21 Pt is doing much better overall, now on room air. However, given multiple readmissions, PT/OT order and psychiatry consults were placed to address rehab and depression, respectively. Objective - Vital Signs Vital signs: Vital Signs Temp 97.7 F 05/21/21 08:00 Pulse 62 05/21/21 08:00 Resp 16 05/21/21 08:00 BP 113/59 05/21/21 08:00 Pulse Ox 95 05/21/21 08:00 Intake & Output 05/20/21 05/21/21 05/21/21 18:59 06:59 18:59 Intake Total 20 250 Output Total 1 Balance 20 249 Weight 61 kg Intake: IV 20 10 Invasive Line 2 20 10 Oral 240 Output: Urine 1 Other: Voiding Method Bedside Commode Toilet Toilet # Voids 1 - Exam Gen: awake, alert HEENT: normocephalic, atraumatic, good hearing acuity, moist mucous membranes Resp: good air exchange, breathing comfortably with no accessory muscle use, diminished breath sounds bilaterally with crackles CVS: good distal perfusion x 4, regular rate and rhythm without murmurs GI: soft, NTTP, ND : no SPT, no CVAT, casey catheter not present MSK: Tenderness to palpation near T10 to T11 with palpable pain in the lower ribs of the right side on the left side, no pitting edema Neuro: non-focal, moving all extremities Psych: cooperative, euthymic mood - Labs CBC & Chem 7: 05/21/21 06:18 05/21/21 06:18 Labs: Abnormal Lab Results - Last 24 Hours (Table) 05/21/21 05/21/21 Range/Units 06:18 06:18 MCV 76.2 L (80.0-100.0) fL RDW 16.6 H (11.5-15.5) % Plt Count 527 H (150-450) k/uL Neutrophils # 8.0 H (1.3-7.7) k/uL Sodium 132 L (137-145) mmol/L Chloride 94 L (98-107) mmol/L BUN 22 H (7-17) mg/dL Creatinine 1.52 H (0.52-1.04) mg/dL Glucose 104 H (74-99) mg/dL Magnesium 2.6 H (1.6-2.3) mg/dL Assessment and Plan Assessment: Back pain -Admit inpatient, telemetry -Morphine when necessary for pain control -Nausea control -PT -X-ray of the T-spine/L spine to rule out compression fracture was negative CAD status post CABG Paroxysmal atrial fibrillation Hypertension Hyperlipidemia -Cardiology consulted -Resume home medications: -Amiodarone, can be reduced to 100 mg on discharge -Eliquis -Aspirin, statin -Lasix -Losartan, metoprolol Chronic kidney disease, stage III B -Resume Midodrine -Avoid nephrotoxins Bilateral pleural effusions, loculated Chronic respiratory failure -Oxygen as needed -Duo nebs as needed -Pulmonary consulted -s/p thora 05/19 with 1L fluid removed. Diabetes type 2 Hyperthyroidism Mood disorder -Home medications reviewed and reconciled Patient is a full code, note: Patient's paperwork expresses DO NOT RESUSCITATE DO NOT INTUBATE, however, patient explicitly told me that she would like to reverse this decision at this time
[2021-05-21] MEDS: ATORVASTATIN 40 MG TAB PO SCH (20:56)
[2021-05-21] MEDS ORDERED: MELATONIN 5 MG TABLET PO SCH (21:00)
[2021-05-22] MEDS: MIDODRINE 5 MG TAB PO SCH (06:32)
[2021-05-22] MEDS ORDERED: HYDROcodone/APAP 5-325MG 1 EACH TAB PO PRN (08:37)
[2021-05-22] MEDS ORDERED: SERTRALINE 50 MG TAB PO SCH (09:00)
[2021-05-22] MEDS: LOSARTAN 25 MG TAB PO SCH (09:06)
[2021-05-22] MEDS: FUROSEMIDE 40 MG TAB PO SCH (09:06)
[2021-05-22] MEDS: ALPRAZolam 0.5 MG TAB PO SCH (09:06)
[2021-05-22] MEDS: METOPROLOL TARTRATE 12.5 MG TAB PO SCH (09:06)
[2021-05-22] MEDS: CHOLECALCIFEROL 25 MCG (1000 IU) TABLET PO SCH (09:07)
[2021-05-22] MEDS: APIXABAN 2.5 MG TABLET PO SCH (09:07)
[2021-05-22] MEDS: AMIODARONE 200 MG TAB PO SCH (09:07)
[2021-05-22] MEDS: COLCHICINE 0.6 MG EACH PO SCH (09:08)
[2021-05-22] MEDS: ASPIRIN 81 MG PO SCH (09:08)
[2021-05-22] MEDS: methIMAzole 5 MG TAB PO SCH (09:08)
[2021-05-22] MEDS: IPRATROPIUM-ALBUTEROL 3 ML NEB INHALATION SCH ×2 (09:12→12:11)
[2021-05-22 09:15] VITALS: RESP 16; TEMP 97.4
--- NOTE | 2021-05-22 10:22 | P.PN ---
Subjective Progress Note Date: 05/22/21 HISTORY OF PRESENT ILLNESS: This is a 76-year-old female who follows in the office with Dr. Hess. Patient is s/p left thoracentesis. Patient currently denies chest pain or pressure. She reports mild shortness of breath. She reports abdominal pain this morning and states she has not had a bowel movement for 5 days. Patient's vital signs remained stable. Her Eliquis has been resumed. 05/22/2021 Patient examined at the bedside. She denies chest pain or pressure. She denies s hortness of breath. Patient reports she had multiple episodes of loose stools overnight. Her abdominal pain has improved. Telemetry reveals sinus mechanism. She remains on Eliquis. Blood pressure 113/80. PHYSICAL EXAM: VITAL SIGNS: Reviewed. GENERAL: Well-developed in no acute distress. NECK: Supple. No JVD or thyromegaly LUNGS: Respirations even and unlabored. Lungs essentially clear to auscultation bilaterally. HEART: Regular rate and rhythm. S1 and S2 heard. EXTREMITIES: Normal range of motion. No clubbing or cyanosis. Peripheral pulses intact. Trace lower extremity edema ASSESSMENT: Abdominal pain Recurrent pleural effusions, status post left thoracentesis Coronary artery disease with previous CABG History of ischemic cardiomyopathy Paroxysmal atrial fibrillation Hypertension Hyperlipidemia Former nicotine dependence PLAN: Continue current cardiac medications Continue anticoagulation with Eliquis Currently stable from a cardiac standpoint for DC to ECF Further recommendations pending patient course Nurse practitioner note has been reviewed by physician. Signing provider agrees with the documented findings, assessment, and plan of care. Objective - Vital Signs Vital signs: Vital Signs Temp 97.4 F L 05/22/21 08:00 Pulse 100 05/22/21 09:23 Resp 16 05/22/21 08:00 BP 113/80 05/22/21 08:00 Pulse Ox 99 05/22/21 08:00 Intake & Output 05/21/21 05/22/21 05/22/21 18:59 06:59 18:59 Intake Total 260 Output Total 1 Balance 259 Weight 59.1 kg Intake: IV 20 Invasive Line 2 20 Oral 240 Output: Urine 1 Other: Voiding Method Toilet Toilet # Voids 1 # Bowel Movements 2 - Labs CBC & Chem 7: 05/21/21 06:18 05/21/21 06:18
--- NOTE | 2021-05-22 10:25 | P.PN ---
Subjective Progress Note Date: 05/22/21 This is a very pleasant 76-year-old female patient who follows with Dr. Florentino as her primary care provider. She has a history of non-ST elevated myocardial infarction, coronary artery disease, requiring off-pump three-vessel CABG on 01/25/2021, hyperthyroidism, borderline diabetes mellitus, hypertension, hyperlipidemia, history of breast cancer status post right mastectomy with chemotherapy, diverticulitis status post colostomy and subsequent reversal, and previous history of smoking, atrial fibrillation anticoagulated with Eliquis. She had undergone coronary artery bypass surgery back in January 2021 and his Several Readmissions for Abdominal Discomfort. She's Also Been Noted to Have Recurrent Pleural Effusions. She had a right-sided thoracentesis on 04/07/2021 with 1100 mL of yellow fluid removed. Negative for malignancy. And another right-sided thoracentesis done on 04/09/2021. Negative for malignancy. She presented here to the emergency room today with complaints of abdominal di scomfort radiating up into her chest with pain through to her back. X-rays again showing small to moderate right-sided pleural effusion and a moderate to large left-sided pleural effusion now. She scan of the abdomen revealed a large loculated bilateral pleural effusions increased from previous. Cardiomegaly. Left renal cortical thinning. No evidence of bowel obstruction. X-rays of the thoracic and lumbar spine reveals no evidence of fracture. White count 11.6. Hemoglobin 12.4. Platelets 464. Sodium 132. Potassium 5.1. Creatinine 1.44. AST 2123. ALT 66. Troponins 0.0-3, 0.038. Jin virus by PCR not detected. Seen today in the emergency room currently resting fairly comfortably on a stretcher. She is maintaining O2 saturations up to 98% on 4 L/m per nasal cannula. She's been afebrile. Hemodynamically stable. The patient is seen today 05/19/2021 in follow-up in the intensive care unit. She is currently sitting up in bed. Awake and alert in no acute distress. She is maintaining O2 saturations in the 90s on 4 L/m per nasal cannula. Ultrasound of the chest did reveal a 7.1 cm pocket on the right as well as a 10.9 cm pocket on the left. It comes and 0.5. Hemoglobin 11.7. Platelets 382. Sodium 129. Potassium 4.0. Creatinine 1.35. Jin virus not detected. She is continued on oral diuretics. A left-sided thoracentesis was performed today by Dr. Cole. 1060 ML's of turbid yellow fluid removed. Not sent for analysis as she has had 2 prior thoracentesis on the right. Pathology had been negative for malignancy. On 05/20/2021, the patient is being seen for a follow-up. The patient is known to have CAD, previous non-STEMI, previous off-pump three-vessel bypass surgery completed on 01/25/2021 in addition to hypertension, hyperlipidemia, hypert hyroidism on methimazole, diabetes mellitus and previous history of breast cancer. Patient undergone right mastectomy. The patient also has had a previous copy. Diverticulitis. Colectomy with subsequent colostomy and subsequent reversal. The patient also suffers from chronic atrial fibrillation maintained on anticoagulation with Eliquis. The patient has had readmissions following the surgery and she has undergone a right-sided thoracentesis for recurrent pleural effusion on the right and the fluid cytology has been negative for malignancy. During this current admission, the workup for the abdominal pain has been essentially negative. The patient underwent a left-sided thoracentesis yesterday but a total of 1 L of fluid was removed from the left lung. Clinically the patient is feeling well. Noted on previous thoracentesis, there was an exudate based on protein criteria and the possibility of post thoracotomy related pleural effusion was entertained. Noted the patient had also some loculation in the right lung base along with some compressive atelectasis of the right lung basilar area. The fluid cytology was negative. Noted the patient also has ischemic cardiomyopathy with an ejection fraction of 30-35%. The patient is currently on oral Lasix 40 mg by mouth twice a day. She remains off anticoagulation. She also has a component in acute kidney injury creatinine is stable. Today's evaluation, the patient is on room air oxygen. Clinically she is feeling much better. Repeat chest x-ray still showing bilateral pleural effusions, smaller in size. Clinically however she is much improved. 05/21/2021, the patient is being seen for a follow-up. The patient underwent a multiple thoracentesis most recently on the left. A total of 1 fluid was removed. 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 Currently she is on room air oxygen. She is not having any major respiratory difficulties. She is also on oral Lasix 40 mg twice a day. We opted not to drain the right lung for the time being. She has no complaints for now. In terms of her blood work, the patient has normal hemoglobin of 12.2, white cell count of 10.1. Sodium is at 132. Creatinine is stable at 1.5 with a BUN of 22. Currently she is on colchicine 0.6 mg on a daily basis. She is also on routine cardiac medications. She is on aspirin 81 mg by mouth daily, she is on Lasix 40 mg by mouth twice a day. She is on metoprolol 12.5 mg by mouth twice a day. on , the patient is doing well. No specific complaints. She remains on room air oxygen. She is weak. She is using incentive spirom eter. She was also started on colchicine. No major respiratory difficulties for now. She is able to lay down flat in bed without having any hard time breathing. She is on oral Lasix 40 mg twice a day and she is also on colchicine 0.6 mg on a daily basis. She is also on long-term anticoagulation with Eliquis. The plan is to send this patient to see an ECF for further recuperation and rehabilitation. Objective - Vital Signs Vital signs: Vital Signs Temp 97.4 F L 05/22/21 08:00 Pulse 100 05/22/21 09:23 Resp 16 05/22/21 08:00 BP 113/80 05/22/21 08:00 Pulse Ox 99 05/22/21 08:00 Intake & Output 05/21/21 05/22/21 05/22/21 18:59 06:59 18:59 Intake Total 260 Output Total 1 Balance 259 Weight 59.1 kg Intake: IV 20 Invasive Line 2 20 Oral 240 Output: Urine 1 Other: Voiding Method Toilet Toilet # Voids 1 # Bowel Movements 2 - Exam GENERAL EXAM: Alert, pleasant 76-year-old female patient, on RA. Discussed the case nasal cannula, fairly comfortable in no apparent distress. HEAD: Normocephalic. EYES: Normal reaction of pupils, equal size. NOSE: Clear with pink turbinates. THROAT: No erythema or exudates. NECK: No masses, no JVD. CHEST: No chest wall deformity. LUNGS: Equal air entry with crackles in the bases left greater than right. Diminished. CVS: S1 and S2 normal with no audible murmur, regular rhythm. ABDOMEN: No hepatosplenomegaly, normal bowel sounds, no guarding or rigidity. SPINE: No scoliosis or deformity SKIN: No rashes CENTRAL NERVOUS SYSTEM: No focal deficits, tone is normal in all 4 extremities. EXTREMITIES: There is no peripheral edema. No clubbing, no cyanosis. Peripheral pulses are intact. - Labs CBC & Chem 7: 05/21/21 06:18 05/21/21 06:18 Assessment and Plan Plan: 1 Abdominal pain radiating to her back. Computed tomography scan of the abdomen revealed no acute abdominal abnormalities. X-rays of the lumbar and thoracic spine revealed no evidence of fracture 2 Acute hypoxic respiratory failure secondary to an acute exacerbation of c hronic systolic congestive heart failure and bilateral pleural effusions and the patient has had previous thoracentesis on the right 2. Negative for malignancy. Left-sided thoracentesis performed 05/19/2021 with 1060 ML's removed. Note that the fluid itself has developed some early loculation on previous CAT scans and this is also noted on the recent CAT scan of the abdomen now for abdominal workup. On previous evaluation, the fluid LDH was elevated consistent with an exudate and consistent with post thoracotomy effusion. 3 Coronary artery disease status post off-pump CABG 3 with a WESLEY to the LAD, left radial artery graft to the up to his marginal, reverse SVG to the posterior lateral branch of the right coronary artery, and exclusion of the left atrial appendage on 01/25/2021 4 Ischemic cardiomyopathy with ejection fraction 30-35% 5 Paroxysmal atrial fibrillation, on amiodarone, anticoagulated with Eliquis 6 Hypertension 7 Hyperlipidemia 8 Former tobacco smoker 9 History of diverticulitis, status post bowel resection, colostomy, with subsequent reversal 10 Former smoking history Plan: the patient is doing well for now. She is currently on room air oxygen. C salima the course of colchicine. The patient will be discharged to ECF today. Continue oral Lasix Check sed rate Left-sided thoracentesis performed today with 1060 ML's fluid removed on 05/11/2021 Continue Eliquis colchicine 0.6 mg daily We will continue to follow outpatient
[2021-05-22 12:49] VITALS: BP 119/68; PULSE 59
--- NOTE | 2021-05-22 14:04 | P.PN ---
Progress Note - Text Progress Note Date: 05/22/21 Interval History: Patient was seen today for psychiatric follow-up regarding patient's depression and anxiety disorder. Patient was seen in her room today and she was sitting at the side of her bed speaking to her daughter over the phone. She was agreeable to speak to marketing copywriter today and was fairly directable and appropriate. She claims that she is doing better today overall and feels "a bit calmer". She states that her anxiety and mood have been improving. She claims that she has been shahla ing the medications and has not had any problems with them so far. She has not taken the BuSpar thus far. She has questions about her medications which were answered by marketing copywriter. She states that she is willing to go to rehab when they found a place for her to go. She appears to have improvement in her insight and judgment today. She claims that she slept all about 12:00 last night and then found it difficult to go back to sleep. She has a improving appetite. At this time patient denies any suicidal or homical ideations, intent or plan. Patient denies any auditory, visual hallucinations and denies any paranoia or delusions. Patient denies any side effects from the medications and has been compliant with meds. Mental Status Exam: General Appearance: Patient appears to be thin, elderly, stated age is alert, directable. somewhat cooperative. Patient appears to have fair hygiene and grooming wearing hospital gown with improving eye contact. Behavior: Patient is calmly lying in bed without any agitated behavior. constricted Speech: Patient's speech is fluent and nonpressured. soft tone. Mood/Affect: Patient reports their mood is "better", affect is congruent and constricted Suicidality/Homicidality: Patient denies having any suicidal or homicidal ideation intent or plan. Perceptions: Patient denies any visual hallucinations and denies any auditory hallucinations Though content/process: There is no evidence of any delusional thought content and thought process goal oriented. More future oriented Memory and concentration: AOX3, grossly intact for the purposes of this session. Can spell "WORLD" backwards Judgment and insight: Improving IMPRESSIONS: Major depressive disorder, mild Generalized anxiety disorder PLAN: -At this time patient DOES NOT meet criteria for inpatient psychiatric admission. -Delirium precautions recommended with patient including - avoiding use of narcotics and DOCTOR OF CHIROPRACTIC sedatives, limit anticholinergic medications when possible, frequent re-orientation, minimize use of restraints, open window shades during the day and close them at night -Would recommend the following medication changes/additions: Continue with Xanax at same dose for anxiety although this should be gradually titrated down/tapered off as an outpatient. Zoloft to 150 mg daily for mood/anxiety, increased melatonin to 10 mg schedule daily at bedtime for sleep. buspar 10 mg tid prn for anxiety. -Patient will be following up with Dr. Epps for MH. -Communicated plan to patient's nurse -At this time psychiatry will sign off -Please contact with any questions.
--- NOTE | 2021-05-22 15:51 | P.DS ---
Providers Date of admission: 05/18/21 16:20 Expected date of discharge: 05/22/21 Attending physician: Leny Awad DO Consults: 05/18/21 16:15 Consult Physician Routine Consulting Provider: Chaim Cole Consult Reason/Comments: ary Do you want consulting provider notified?: Yes Consult Physician Urgent Consulting Provider: Merissa Solano Consult Reason/Comments: cp Do you want consulting provider notified?: Yes 05/21/21 12:37 Consult Physician Routine Consulting Provider: Psychiatry - [facility] Psychiatry Consult Reason/Comments: depression Do you want consulting provider notified?: Yes Primary care physician: [place] Hospital Course: Discharge Diagnosis: 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 Florentino as her primary care provider. She has a history of non-ST elevated myocardial infarction, coronary artery disease, requiring off-pump three-vessel CABG on 01/25/2021, hyperthyroidism, borderline diabetes mellitus, hypertension, hyperlipidemia, history of breast cancer status post right mastectomy with chemotherapy, diverticulitis status post colostomy and subsequent reversal, and previous history of smoking, atrial fibrillation anticoagulated with Eliquis. She had undergone coronary artery bypass surgery back in January 2021 and his Several Readmissions for Abdominal Discomfort. She's Also Been Noted to Have Recurrent Pleural Effusions. She had a right-sided thoracentesis on 04/07/2021 with 1100 mL of yellow fluid removed. Negative for malignancy. And another right-sided thoracentesis done on 04/09/2021. Negative for malignancy. She presented here to the emergency room today with complaints of abdominal discomfort radiating up into her chest with pain through to her back. X-rays again showing small to moderate right-sided pleural effusion and a moderate to large left-sided pleural effusion now. She scan of the abdomen revealed a large loculated bilateral pleural effusions increased from previous. Cardiomegaly. Left renal cortical thinning. No evidence of bowel obstruction. X-rays of the thoracic and lumbar spine reveals no evidence of fracture. White count 11.6. Hemoglobin 12.4. Platelets 464. Sodium 132. Potassium 5.1. Creatinine 1.44. AST 2123. ALT 66. Troponins 0.0-3, 0.038. Jin virus by PCR not detected. Seen today in the emergency room currently resting fairly comfortably on a stretcher. She is maintaining O2 saturations up to 98% on 4 L/m per nasal cannula. She's been afebrile. Hemodynamically stable. During hospitalization patient was seen by pulmonology. She had a thoracentesis done during hospitalization. Per pulmonology the recurrent pleural effusions are likely due to postthoracotomy effusion. At the time of discharge patient was satting well on room air. She is deemed stable for discharge by pulmonology. Patient is also complaining of back pain. She had x-ray of her spine that was negative for any fractures. Patient was started on [place] for pain. At the time of discharge patient reported that her pain was controlled. Physical therapy recommended [facility] facility. Patient was also seen by our psychiatrist. Her psych meds were adjusted. Per psych patient does not need inpatient psychiatric admission. Patient was instructed to follow-up with pulmonology outpatient. General examination - Alert and Oriented 3 in NAD, appears chronically debilitated Heart - + S1S2 no murmurs Lungs - diminished but does bilaterally Abdomen soft NT ND +ve BS Extremities - No edema SIDING APPLICATOR - Moving all 4 extremities spontaneously Psych - Calm and cooperative A total of [32] minutes of time were spent preparing this complex discharge summary . Patient Condition at Discharge: Fair Plan - Discharge Summary Discharge Rx Participant: No New Discharge Prescriptions: New Aspirin 81 mg PO DAILY 30 Days #30 tab busPIRone HCl [Buspar] 10 mg PO TID PRN 30 Days #90 tab PRN Reason: Anxiety Colchicine 0.6 mg PO DAILY 30 Days #30 tablet Metoprolol Tartrate [Lopressor] 12.5 mg PO BID tab HYDROcodone/APAP 5-325MG [[place] 5-325] 1 each PO Q6HR PRN tab PRN Reason: Pain Sertraline [Zoloft] 150 mg PO DAILY 30 Days #30 tab Continue Rosuvastatin [Crestor] 20 mg PO HS Cholecalciferol [Vitamin D3 (25 Mcg = 1000 Iu)] 50 mcg PO DAILY methIMAzole [Tapazole] 15 mg PO DAILY tab Losartan [Cozaar] 25 mg PO DAILY 30 Days #30 tab Apixaban [Eliquis] 2.5 mg PO BID #60 tab ALPRAZolam [Xanax] 0.5 mg PO BID Melatonin 5 mg PO HS PRN PRN Reason: Insomnia Midodrine HCl [ProAmatine] 10 mg PO AC-BID Furosemide [Lasix] 40 mg PO BID Benzonatate [Tessalon Perles] 100 mg PO TID PRN PRN Reason: Cough Amiodarone [Cordarone] 200 mg PO DAILY #30 tab Ipratropium-Albuterol Nebulize [Duoneb 0.5 mg-3 mg/3 ml Soln] 3 ml INHALATION RT-QID Acetaminophen Tab [Tylenol] 1,000 mg PO Q8H PRN PRN Reason: Pain Discontinued buPROPion [Wellbutrin] 75 mg PO DAILY Amitriptyline HCl [Elavil] 20 mg PO HS Potassium Chloride [Potassium Chloride ER] 20 meq PO DAILY Sertraline [Zoloft] 100 mg PO DAILY Metoprolol Tartrate [Lopressor] 12.5 mg PO BID Discharge Medication List Cholecalciferol [Vitamin D3 (25 Mcg = 1000 Iu)] 50 mcg PO DAILY 01/21/21 [History] Rosuvastatin [Crestor] 20 mg PO HS 01/21/21 [History] methIMAzole [Tapazole] 15 mg PO DAILY tab 01/30/21 [Rx] Losartan [Cozaar] 25 mg PO DAILY 30 Days #30 tab 03/08/21 [Rx] Apixaban [Eliquis] 2.5 mg PO BID #60 tab 03/17/21 [Rx] Amiodarone [Cordarone] 200 mg PO DAILY #30 tab 03/19/21 [Rx] ALPRAZolam [Xanax] 0.5 mg PO BID 03/31/21 [History] Melatonin 5 mg PO HS PRN 04/05/21 [History] Acetaminophen Tab [Tylenol] 1,000 mg PO Q8H PRN 05/18/21 [History] Benzonatate [Tessalon Perles] 100 mg PO TID PRN 05/18/21 [History] Furosemide [Lasix] 40 mg PO BID 05/18/21 [History] Ipratropium-Albuterol Nebulize [Duoneb 0.5 mg-3 mg/3 ml Soln] 3 ml INHALATION RT-QID 05/18/21 [History] Midodrine HCl [ProAmatine] 10 mg PO AC-BID 05/18/21 [History] Colchicine 0.6 mg PO DAILY 30 Days #30 tablet 05/21/21 [Rx] Aspirin 81 mg PO DAILY 30 Days #30 tab 05/22/21 [Rx] HYDROcodone/APAP 5-325MG [[place] 5-325] 1 each PO Q6HR PRN tab 05/22/21 [Rx] Metoprolol Tartrate [Lopressor] 12.5 mg PO BID tab 05/22/21 [Rx] Sertraline [Zoloft] 150 mg PO DAILY 30 Days #30 tab 05/22/21 [Rx] busPIRone HCl [Buspar] 10 mg PO TID PRN 30 Days #90 tab 05/22/21 [Rx] Follow up Appointment(s)/Referral(s): Precious Schrader NPC [Nurse Practitioner] - 1 Week [facility], [NON-STAFF] - 1-2 Days Brian Foster DO [Primary Care Provider] - 1-2 days Patient Instructions/Handouts: Thoracentesis (DC) Activity/Diet/Wound Care/Special Instructions: Luiz Discharge Disposition: TRANSFER TO SNF/ECF
[2021-05-22] MEDS ORDERED: MELATONIN 5 MG TABLET PO SCH (21:00)
--- NOTE | 2021-05-24 13:55 | CDI ---
Documentation Clarification Form Date: 05/24/2021 01:52:00 PM From: Korina Johnston Admit Date: 05/18/2021 04:20:00 PM Patient Name: Jenny Larkin Visit Number: [id number] Discharge Date: 05/22/2021 04:08:00 PM ATTENTION: The Clinical Documentation Specialists (CDI) and [facility] Coding Staff appreciate your assistance in clarifying documentation. Please respond to the clarification below the line at the bottom and electronically sign. The CDI & [facility] Coding staff will review the response and follow-up if needed. Please note: Queries are made part of the Legal Health Record. If you have any questions, please contact the author of this message via ITS. Dr. Delroy Beaulieu, Acute on chronic systolic heart failure is documented in 05/[address] Cole and Dr Cole & Dr Glover's PNs, which may lack sufficient clinical evidence/support in the medical record. Additional clarification is requested. History/Risk Factors: S/P CABG, pleural effusions, HTN w systolic CHF & Stage 3b CKD Clinical Indicators: Per consult "Acute hypoxic respiratory failure secondary to an acute exacerbation of chronic systolic congestive heart failure and bilateral pleural effusions and the patient has had previous thoracentesis on the right 2. Negative for malignancy." 05/18 CXR: Cardiomegaly with small to moderate-sized right pleural effusion stable. Moderate to large size left pleural effusion increased in size from prior. BNP: 3830 Treatment: Lasix 40 mg PO BID, left thoracentesis for large pleural effusion Please clarify if acute on chronic systolic heart failure is a valid diagnosis? [ ] Yes, acute on chronic systolic heart failure is present as evidence by (additional clinical support): [ ] Chronic systolic heart failure [ ] Other (please specify diagnosis) [ ] Unable to determine Chronic systolic heart failure MTDD
== END 2021-05-22 16:08 | DRG 205 ==
LOC: EC 12:22 → 3SCARD 16:20 → 2SICU 21:41 → 3SCARD 05-20 15:45
PROVIDERS: ADMIT Internal Medicine; ATTEND Internal Medicine
PROC: 0W9B3ZZ Drainage of Left Pleural Cavity, Percutaneous Approach (ICD-10-PCS; principal; 2021-05-19)
DX: J95.89 Other postprocedural complications and disorders of respiratory system, not elsewhere classified (principal); J96.21 Acute and chronic respiratory failure with hypoxia; J91.8 Pleural effusion in other conditions classified elsewhere; N17.9 Acute kidney failure, unspecified; I13.0 Hypertensive heart and chronic kidney disease with heart failure and stage 1 through stage 4 chronic kidney disease, or unspecified chronic kidney disease; I25.110 Atherosclerotic heart disease of native coronary artery with unstable angina pectoris; E87.1 Hypo-osmolality and hyponatremia; I50.22 Chronic systolic (congestive) heart failure; J98.11 Atelectasis; E11.22 Type 2 diabetes mellitus with diabetic chronic kidney disease; D72.829 Elevated white blood cell count, unspecified; I48.0 Paroxysmal atrial fibrillation; N18.32 Chronic kidney disease, stage 3b; Z20.822 Contact with and (suspected) exposure to COVID-19; I25.5 Ischemic cardiomyopathy; F32.9 Major depressive disorder, single episode, unspecified; F41.1 Generalized anxiety disorder; E78.5 Hyperlipidemia, unspecified; E05.90 Thyrotoxicosis, unspecified without thyrotoxic crisis or storm; I44.7 Left bundle-branch block, unspecified; G89.29 Other chronic pain; M54.9 Dorsalgia, unspecified; I25.2 Old myocardial infarction; M19.90 Unspecified osteoarthritis, unspecified site; Z79.01 Long term (current) use of anticoagulants; Z79.899 Other long term (current) drug therapy; Z87.891 Personal history of nicotine dependence; Z95.1 Presence of aortocoronary bypass graft; Z90.49 Acquired absence of other specified parts of digestive tract; Z90.710 Acquired absence of both cervix and uterus; Z98.51 Tubal ligation status; Z98.42 Cataract extraction status, left eye; Z98.41 Cataract extraction status, right eye; Z96.1 Presence of intraocular lens; Z90.11 Acquired absence of right breast and nipple; Z96.652 Presence of left artificial knee joint; Z85.828 Personal history of other malignant neoplasm of skin; Z87.448 Personal history of other diseases of urinary system; Z85.3 Personal history of malignant neoplasm of breast; Z92.21 Personal history of antineoplastic chemotherapy; Z98.890 Other specified postprocedural states; Y83.2 Surgical operation with anastomosis, bypass or graft as the cause of abnormal reaction of the patient, or of later complication, without mention of misadventure at the time of the procedure; Z82.49 Family history of ischemic heart disease and other diseases of the circulatory system; Z80.3 Family history of malignant neoplasm of breast; Z80.8 Family history of malignant neoplasm of other organs or systems
CPT/HCPCS: 36415; 71045; 71046; 72070; 72100; 74177; 76604; 80048; 80053; 80061; 83690; 83735; 83880; 84484; 85025; 85610; 85730; 87635; 93005; 94640; 94760; 96361; 96374; 96376; 99285

== ENCOUNTER 2023-01-19 17:50 | Inpatient (IN) | payer MEDICARE ==
--- NOTE | 2023-01-19 19:19 | ED ---
General Adult HPI - General Chief complaint: Eye Problems Stated complaint: Poss Stroke Time Seen by Provider: 01/19/23 17:55 Source: patient Mode of arrival: ambulatory Limitations: no limitations - History of Present Illness Initial comments: 77-year-old female past history of Graves' disease who presents to the emergency department under the direction of her neuro-journeyman plumber. 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 She has been on prednisone. 3 days ago the patient noted that she began having some visual changes in her right eye. She saw a neuro journeyman plumber today who did a full eye exam and was concerned that the patient had a stroke due to hemianopsia. Recommended that the patient go to the ER for evaluation. Patient denies any speech difficulties. No headaches. Denies any lateralizing weakness. She does have a history of A. fib and is on Eliquis. Denies missing any doses. No history of stroke. No other alleviating, precipitating or modifying factors - Related Data Home Medications Medication Instructions Recorded Confirmed Cholecalciferol [Vitamin D3 (25 25 mcg PO DAILY 01/21/21 01/19/23 Mcg = 1000 Iu)] ALPRAZolam [Xanax] 1 mg PO BID 03/31/21 01/19/23 Midodrine HCl [ProAmatine] 10 mg PO AC-BID 05/18/21 01/19/23 Amitriptyline HCl [Elavil] 20 mg PO HS 01/19/23 01/19/23 Atorvastatin [Lipitor] 40 mg PO HS 01/19/23 01/19/23 Ezetimibe [Zetia] 10 mg PO HS 01/19/23 01/19/23 Furosemide [Lasix] 20 mg PO DAILY 01/19/23 01/19/23 Pantoprazole Sodium [Protonix] 40 mg PO DAILY 01/19/23 01/19/23 Potassium Chloride ER [K-Dur 20] 20 meq PO DAILY 01/19/23 01/19/23 Sertraline [Zoloft] 100 mg PO DAILY 01/19/23 01/19/23 metFORMIN HCL [Glucophage] 500 mg PO BID 01/19/23 01/19/23 methIMAzole [Tapazole] 2.5 mg PO DAILY 01/19/23 01/19/23 predniSONE [Deltasone] See Taper PO DIRECTED 01/19/23 01/19/23 Previous Rx's Medication Instructions Recorded Losartan [Cozaar] 25 mg PO DAILY 30 Days #30 tab 03/08/21 Apixaban [Eliquis] 2.5 mg PO BID #60 tab 03/17/21 Aspirin 81 mg PO DAILY 30 Days #30 tab 05/22/21 Metoprolol Tartrate [Lopressor] 12.5 mg PO BID tab 05/22/21 Allergies Allergy/AdvReac Type Severity Reaction Status Date / Time No Known Allergies Allergy Verified 01/19/23 20:46 Review of Systems ROS Statement: Those systems with pertinent positive or pertinent negative responses have been documented in the HPI. ROS Other: All systems not noted in ROS Statement are negative. Past Medical History Past Medical History: Coronary Artery Disease (CAD), Cancer, Hyperlipidemia, Hypertension, Memory Impairment, Myocardial Infarction ([place]), Osteoarthritis ([place]) Additional Past Medical History / Comment(s): 01/25/21 CABG X3 Last Myocardial Infarction Date:: 01/21/21 History of Any Multi-Drug Resistant Organisms: None Reported Past Surgical History: Appendectomy, Bladder Surgery, Bowel Resection, Breast Surgery, Cholecystectomy, Coronary Bypass/CABG, Hysterectomy, Orthopedic Surgery, Tubal Ligation Additional Past Surgical History / Comment(s): cataractsurgery x2 with lens implants, masectomy on right breast, bowel resection with colostomy and reversal, bladder suspension, left knee replacement, skin cancer removed from right ear Past Anesthesia/Blood Transfusion Reactions: No Reported Reaction Past Psychological History: No Psychological Hx Reported, Depression Smoking Status: Former smoker, Unknown if ever smoked Past Alcohol Use History: None Reported Past Drug Use History: None Reported - Past Family History Father Family Medical History: AFIB, Congestive Heart Failure (CHF) Mother Family Medical History: Cancer Additional Family Medical History / Comment(s): breast cancer with mets General Exam Limitations: no limitations General appearance: alert, in no apparent distress Head exam: Present: atraumatic, normocephalic, normal inspection Eye exam: Present: other (Proptosis to the left eye with limited range of motion. Patient has left peripheral vision deficit with both eyes). Absent: scleral icterus, conjunctival injection, periorbital swelling ENT exam: Present: normal exam, mucous membranes moist Neck exam: Present: normal inspection. Absent: tenderness, meningismus, lymphadenopathy Respiratory exam: Present: normal lung sounds bilaterally. Absent: respiratory distress, wheezes, rales, rhonchi, stridor Cardiovascular Exam: Present: regular rate, normal rhythm, normal heart sounds. Absent: systolic murmur, diastolic murmur, rubs, gallop, clicks GI/Abdominal exam: Present: soft, normal bowel sounds. Absent: distended, tenderness, guarding, rebound, rigid Extremities exam: Present: normal inspection, full ROM, normal capillary refill. Absent: tenderness, pedal edema, joint swelling, calf tenderness Back exam: Present: normal inspection Neurological exam: Present: alert, oriented X3, CN II-XII intact Psychiatric exam: Present: normal affect, normal mood Skin exam: Present: warm, dry, intact, normal color. Absent: rash Course Vital Signs 01/19/23 01/19/23 01/20/23 17:51 22:00 01:05 Temperature 98.2 F Pulse Rate 63 72 68 Respiratory 18 22 18 Rate Blood Pressure 158/78 149/72 135/56 O2 Sat by Pulse 97 97 97 Oximetry Medical Decision Making - Medical Decision Making Was pt. sent in by a medical professional or institution (, PA, AUDIO SPECIALIST, urgent care, hospital, or [facility]...) When possible be specific @ -Yes, by her neuro-journeyman plumber Did you speak to anyone other than the patient for history (EMS, parent, family, police, friend...)? What history was obtained from this source @ -Spoke with the patient's daughter Did you review nursing and triage notes (agree or disagree)? Why? @ -I reviewed and agree with nursing and triage notes Were old charts reviewed (outside hosp., previous admission, EMS record, old EKG, old radiological studies, urgent care reports/EKG's, [facility] records)? Report findings @ -No old charts were reviewed Differential Diagnosis (chest pain, altered mental status, abdominal pain women, abdominal pain men, vaginal bleeding, weakness, fever, dyspnea, syncope, headache, dizziness, GI bleed, back pain, seizure, CVA, palpatations, mental health, musculoskeletal)? @ -Differential CVA Ischemic stroke, hemorrhagic stroke, brain tumor, atypical migraine, Wernicke's encephalopathy, seizure, multiple sclerosis, meningitis, encephalitis, hypoglycemia, Guillain-Sparks, electrolytes disturbance, myasthenia gravis.... This is not meant to be an all-inclusive list EKG interpreted by me (3pts min.). @ -Yes and demonstrates sinus bradycardia with a rate of 57. NV interval 148. QRS 142. QTC of 431. Inverted T waves with ST depression 1, 2, aVL and aVF, V5 through V6. No ST segment elevation. Left bundle branch block X-rays interpreted by me (1pt min.). @ -Yes and demonstrates no acute process CT interpreted by me (1pt min.). @ -Yes and demonstrates subacute CVA U/S interpreted by me (1pt. min.). @ -None done What testing was considered but not performed or refused? (CT, X-rays, U/S, labs)? Why? @ -None What meds were considered but not given or refused? Why? @ -Alteplase was considered however the patient's last known well was 3 days ago Did you discuss the management of the patient with other professionals (professionals i.e. , PA, AUDIO SPECIALIST, lab, RT, psych nurse, social media assistant, strategic alliances manager, teacher, division officer weapons department, case fitter)? Give summary @ -Yes spoke with Reva from [facility] who will admit the patient Was smoking cessation discussed for >3mins.? @ -No Was critical care preformed (if so, how long)? @ -No Were there social determinants of health that impacted care today? How? (Homelessness, low income, unemployed, alcoholism, drug addiction, transportation, low edu. Level, literacy, decrease access to med. care, penitentiary, rehab)? @ -No Was there de-escalation of care discussed even if they declined (Discuss DNR or withdrawal of care, Hospice)? DNR status @ -No What co-morbidities impacted this encounter? (DM, HTN, Smoking, COPD, CAD, Cancer, CVA, ARF, Chemo, Hep., AIDS, mental health diagnosis, sleep apnea, morbid obesity)? @ -Yes, afib, Graves' disease Was patient admitted / discharged? Hospital course, mention meds given and route, prescriptions, significant lab abnormalities, going to OR and other pertinent info. @ -Upon arrival patient was placed in room 16. A thorough history and physical exam was performed. Patient's last known well was 3 days ago. She does have left-sided hemianopsia. Patient sent for CT and CT angiography which does demonstrate an subacute CVA. She is given a full dose aspirin. Recommended admission for which the patient was agreeable. Spoke with Reva from [facility]. Neurology will be placed on consult Undiagnosed new problem with uncertain prognosis? @ -Yes Drug Therapy requiring intensive monitoring for toxicity (Heparin, Nitro, Insulin, Cardizem)? @ -No Were any procedures done? @ -No Diagnosis/symptom? @ -Acute left homonomous hemianopsia, acute CVA Acute, or Chronic, or Acute on Chronic? @ -Acute Uncomplicated (without systemic symptoms) or Complicated (systemic symptoms)? @ -Complicated Side effects of treatment? @ -No Exacerbation, Progression, or Severe Exacerbation? @ -No Poses a threat to life or bodily function? How? (Chest pain, [place], [place], pneumonia, PE, COPD, DKA, ARF, appy, cholecystitis, CVA, Diverticulitis, Homicidal, Suicidal, threat to staff... and all critical care pts) @ -Yes patient has suffered from a CVA - Lab Data Result diagrams: 01/19/23 19:20 01/19/23 19:20 Lab Results 01/19/23 01/19/23 01/19/23 Range/Units 19:20 19:20 19:20 WBC 10.9 H (3.8-10.6) k/uL RBC 5.48 H (3.80-5.40) m/uL Hgb 14.4 (11.4-16.0) gm/dL Hct 44.2 (34.0-46.0) % MCV 80.6 (80.0-100.0) fL MCH 26.3 (25.0-35.0) pg MCHC 32.6 (31.0-37.0) g/dL RDW 13.9 (11.5-15.5) % Plt Count 242 (150-450) k/uL MPV 8.2 Neutrophils % 91 % Lymphocytes % 5 % Monocytes % 3 % Eosinophils % 0 % Basophils % 0 % Neutrophils # 10.0 H (1.3-7.7) k/uL Lymphocytes # 0.6 L (1.0-4.8) k/uL Monocytes # 0.3 (0-1.0) k/uL Eosinophils # 0.0 (0-0.7) k/uL Basophils # 0.0 (0-0.2) k/uL PT 9.7 (9.0-12.0) sec INR 0.9 (<1.2) APTT 20.4 L (22.0-30.0) sec Sodium 135 L (137-145) mmol/L Potassium 5.1 (3.5-5.1) mmol/L Chloride 102 (98-107) mmol/L Carbon Dioxide 22 (22-30) mmol/L Anion Gap 11 mmol/L BUN 51 H (7-17) mg/dL Creatinine 1.41 H (0.52-1.04) mg/dL Est GFR (CKD-EPI)AfAm 42 (>60 ml/min/1.73 sqM) Est GFR (CKD-EPI)NonAf 37 (>60 ml/min/1.73 sqM) Glucose 201 H (74-99) mg/dL Calcium 9.6 (8.4-10.2) mg/dL Total Bilirubin 0.7 (0.2-1.3) mg/dL AST 23 (14-36) U/L ALT 25 (4-34) U/L Alkaline Phosphatase 77 (38-126) U/L Creatine Kinase 25 L (30-135) U/L Troponin I (0.000-0.034) ng/mL Total Protein 7.0 (6.3-8.2) g/dL Albumin 4.3 (3.5-5.0) g/dL 01/19/23 Range/Units 19:20 WBC (3.8-10.6) k/uL RBC (3.80-5.40) m/uL Hgb (11.4-16.0) gm/dL Hct (34.0-46.0) % MCV (80.0-100.0) fL MCH (25.0-35.0) pg MCHC (31.0-37.0) g/dL RDW (11.5-15.5) % Plt Count (150-450) k/uL MPV Neutrophils % % Lymphocytes % % Monocytes % % Eosinophils % % Basophils % % Neutrophils # (1.3-7.7) k/uL Lymphocytes # (1.0-4.8) k/uL Monocytes # (0-1.0) k/uL Eosinophils # (0-0.7) k/uL Basophils # (0-0.2) k/uL PT (9.0-12.0) sec INR (<1.2) APTT (22.0-30.0) sec Sodium (137-145) mmol/L Potassium (3.5-5.1) mmol/L Chloride (98-107) mmol/L Carbon Dioxide (22-30) mmol/L Anion Gap mmol/L BUN (7-17) mg/dL Creatinine (0.52-1.04) mg/dL Est GFR (CKD-EPI)AfAm (>60 ml/min/1.73 sqM) Est GFR (CKD-EPI)NonAf (>60 ml/min/1.73 sqM) Glucose (74-99) mg/dL Calcium (8.4-10.2) mg/dL Total Bilirubin (0.2-1.3) mg/dL AST (14-36) U/L ALT (4-34) U/L Alkaline Phosphatase (38-126) U/L Creatine Kinase (30-135) U/L Troponin I 0.024 (0.000-0.034) ng/mL Total Protein (6.3-8.2) g/dL Albumin (3.5-5.0) g/dL Disposition Clinical Impression: CVA (cerebral vascular accident), Hemianopia, homonymous, left Disposition: ADMITTED IP TO THIS [facility] Condition: Serious Is patient prescribed a controlled substance at d/c from ED?: No Time of Disposition: 21:58 Decision to Admit Reason: Admit from EC Decision Date: 01/19/23 Decision Time: 21:58
[2023-01-19 19:33] LABS: Basophils % (A) 0 %; Eosinophils % (A) 0 %; HCT 44.2 % (34.0-46.0); HGB 14.4 gm/dL (11.4-16.0); Lymphocytes # (A) 0.6 k/uL (1.0-4.8); Lymphocytes % (A) 5 %; MCH 26.3 pg (25.0-35.0); MCHC 32.6 g/dL (31.0-37.0); MCV 80.6 fL (80.0-100.0); Mean Platelet Volume 8.2; Monocytes # (A) 0.3 k/uL (0-1.0); Monocytes % (A) 3 %; Neutrophils % (A) 91 %; Platelet Count 242 k/uL (150-450); RBC 5.48 m/uL (3.80-5.40); RDW 13.9 % (11.5-15.5); WBC 10.9 k/uL (3.8-10.6)
[2023-01-19 19:45] LABS: ALT 25 U/L (4-34); AST 23 U/L (14-36); African American GFR (CKD) 42 (>60 ml/min/1.73 sqM); Albumin 4.3 g/dL (3.5-5.0); Alkaline Phosphatase 77 U/L (38-126); Anion Gap 11 mmol/L; Blood Urea Nitrogen 51 mg/dL (7-17); Calcium 9.6 mg/dL (8.4-10.2); Carbon Dioxide 22 mmol/L (22-30); Chloride 102 mmol/L (98-107); Creatine Kinase 25 U/L (30-135); Glucose 201 mg/dL (74-99); Non-African American GFR(CKD) 37 (>60 ml/min/1.73 sqM); Potassium 5.1 mmol/L (3.5-5.1); Sodium 135 mmol/L (137-145); Total Bilirubin 0.7 mg/dL (0.2-1.3)
[2023-01-19 19:49] LABS: INR 0.9 (<1.2); Prothrombin Time 9.7 sec (9.0-12.0)
[2023-01-19 20:08] LABS: Partial Thromboplastin Time 20.4 sec (22.0-30.0)
--- NOTE | 2023-01-19 20:41 | CT ---
EXAMINATION TYPE: CT brain wo con DATE OF EXAM: 01/19/2023 COMPARISON: None HISTORY: 77-year-old female loss of vision in left eye and blurry in right eye x3 days TECHNIQUE: Examination was done in axial plane without intravenous contrast. Coronal and sagittal r econstructions performed. CT DLP: 1090.6 mGycm Automated exposure control for dose reduction was used. FINDINGS: Focal cortical and subcortical hypodensity involving the right occipital lobe. No evidence for acute intracranial hemorrhage, acute ischemic change, mass, mass effect, midline shif t, or extra-axial fluid collection. There is moderate bifrontal cerebral atrophy and moderate central cerebral volume loss and secondary prominence to the ventricular system. Mucosal thickening and air-fluid levels right greater than left maxillary sinuses. Moderate mucosal t hickening throughout the ethmoid air cells. Mastoid air cells are well pneumatized. Orbits and globes appear intact. IMPRESSION: 1. Focal cortical and subcortical hypodensity right occipital lobe. No priors are available for myriam rison purposes. Subacute ischemia is suggested. No acute intracranial hemorrhage or midline shift. 2. Moderate cerebral atrophy. 3. Possible acute on chronic maxillary sinusitis. Moderate chronic ethmoid sinus disease. Findings called to Dr. Pressley in the ER at 8:35 PM.
--- NOTE | 2023-01-19 20:45 | CT ---
EXAMINATION TYPE: CT angio head neck DATE OF EXAM: 01/19/2023 COMPARISON: CT scan same day HISTORY: 77-year-old female loss of vision in left eye and blurry in right eye x3 days TECHNIQUE: Contiguous axial scanning of the head and neck performed with IV Contrast, patient injecte d with 65 mL of Isovue 370. Coronal/sagittal reconstructions performed. 3-D reconstructions generated on a dedicated workstation. CT DLP: 402.2 mGycm Automated exposure control for dose reduction was used. FINDINGS: NECK: Moderate atherosclerotic arch calcifications. Mild narrowing at the origin of the left subclavian art amy. Right common carotid artery is patent. Moderate atherosclerotic change at the right carotid bifurcation anteriorly to a moderate, just over 50% stenosis at the origin of the right ICA by NASCET criteria. The left common and left internal carotid arteries are patent. The vertebral arteries are codominant and patent throughout the course. HEAD: The vertebral and basilar arteries as well as the remainder of the posterior circulation is patent. There is mild atherosclerotic calcification throughout the carotid siphons without significant stenos is. Anterior circulation is patent. No aneurysmal changes seen. Dural venous sinuses are patent. IMPRESSION: NECK: 1. MODERATE ATHEROSCLEROTIC CHANGE AT THE RIGHT CAROTID BIFURCATION. This results in a moderate, just over 50% proximal right ICA stenosis. 2. No significant ICA stenosis on the left. Head: 3. No large vessel intracranial arterial occlusion, significant stenosis, or aneurysmal change is see n.
--- NOTE | 2023-01-19 20:54 | XR ---
EXAMINATION TYPE: XR chest 2V DATE OF EXAM: 01/19/2023 COMPARISON: 05/20/2021 HISTORY: 77-year-old female confusion, altered mental status, blurry vision TECHNIQUE: PA and lateral views FINDINGS: The heart is borderline to mildly enlarged. Atherosclerotic arch calcifications. Post-CABG clips are present. No consolidation or pleural effusion. Focal density posterior left base on the lateral view could represent prominent hyperostotic changes at the costovertebral joint or an underlying nodule. N onemergent follow-up CT recommended to reassess. [facility] in the lower thoracic spine. No consolidation o r pleural effusion seen. IMPRESSION: 1. Mild cardiomegaly and COPD. Post CABG changes. No definite acute process. 2. Focal density along the subpleural region of the posterior left basal lateral view likely represen ts hyperostotic changes relating to the costovertebral joint. Nonemergent follow-up CT chest to exclu de an underlying pulmonary nodule.
[2023-01-19] MEDS ORDERED: ASPIRIN 325 MG TAB PO STA (21:58)
[2023-01-19] MEDS: metFORMIN 500 MG TAB PO SCH (23:02)
[2023-01-19] MEDS: ALPRAZolam 1 MG TAB PO SCH (23:02)
[2023-01-19] MEDS: MIDODRINE 5 MG TAB PO SCH (23:02)
[2023-01-19] MEDS: ATORVASTATIN 40 MG TAB PO SCH (23:03)
[2023-01-19] MEDS: AMITRIPTYLINE HCL 10 MG TAB PO SCH (23:04)
[2023-01-19] MEDS: METOPROLOL TARTRATE 12.5 MG TAB PO SCH (23:06)
[2023-01-20 08:51] LABS: Glucose,Whole Blood 126 mg/dL (70-110)
[2023-01-20] MEDS ORDERED: LOSARTAN 25 MG TAB PO SCH (09:00)
[2023-01-20] MEDS ORDERED: FUROSEMIDE 20 MG TAB PO SCH (09:00)
[2023-01-20] MEDS ORDERED: POTASSIUM CHLORIDE ER 20 MEQ TAB.ER PO SCH (09:00)
[2023-01-20] MEDS: MIDODRINE 5 MG TAB PO SCH ×2 (09:08→16:58)
[2023-01-20] MEDS: ALPRAZolam 1 MG TAB PO SCH ×2 (09:08→20:40)
[2023-01-20] MEDS: ASPIRIN 325 MG TAB PO SCH (09:08)
[2023-01-20] MEDS: CHOLECALCIFEROL 25 MCG (1000 IU) TABLET PO SCH (09:08)
[2023-01-20] MEDS: SERTRALINE 100 MG TAB PO SCH (09:08)
[2023-01-20] MEDS: METOPROLOL TARTRATE 12.5 MG TAB PO SCH ×2 (09:08→20:40)
[2023-01-20] MEDS: APIXABAN 2.5 MG TABLET PO SCH ×2 (09:08→20:40)
[2023-01-20] MEDS: metFORMIN 500 MG TAB PO SCH (09:09)
[2023-01-20] MEDS: PANTOPRAZOLE 40 MG TABLET PO SCH (09:09)
[2023-01-20 09:19] LABS: Chol/HDL Ratio 2.65 Ratio
[2023-01-20] MEDS ORDERED: DEXTROSE 50% SYRINGE 50 ML IVP PRN ×2 (10:09)
[2023-01-20 11:28] LABS: Glucose,Whole Blood 201 mg/dL (70-110)
[2023-01-20] MEDS ORDERED: ACETAMINOPHEN TAB 325 MG TAB PO PRN (12:07)
[2023-01-20] MEDS: methIMAzole 5 MG TAB PO SCH (12:10)
[2023-01-20] MEDS: INSULIN ASPART (NovoLOG) 100 UNIT/ML VIAL SQ SCH ×3 (12:10→20:41)
--- NOTE | 2023-01-20 12:19 | P.CNNES ---
History of Present Illness Consult date: 01/20/23 Requesting physician: Fidelina Pressley Reason for Consult: acute cva History of Present Illness: This is a 77-year-old woman with history of atrial fibrillation on Eliquis, coronary artery disease status post CABG, hypertension who presented emergency department because of visual disturbance and was sent by her direction of her neuro-pipe fitter gas pipe. Patient is accompanied with her daughter. It seems the patient was recently having proptosis of the left eye and was felt due to the thyroid issues and she's been on the prednisone but 3 days prior to presenting to our facility she start having visual disturbance over the right eye and then she was evaluated by neuro-pipe fitter gas pipe (Dr. Gomes) and was concerned about [facility] since had so he wanted the patient to come to the emergency department for further evaluation for stroke. She denies history of stroke. Denies off missing her anti-coag ablation medication (eliquis 2.5mg bid) and is on ASA 81mg daily. She stated for her proptosis of left eye she had MRI Brain and orbit and was negative about 3 months ago. Patient denies of any focal weakness, numbness, speech difficulty or swallowing. Some of the workup in our facility consisted of: Lipid panel as triglyceride 174, cholesterol 194, LDLs [address] of the head is reported as focal cortical and subcortical hypodensity over right occipital lobe. Subacute ischemia suggested. No acute intracranial hemorrhage or midline shift. Possible acute on chronic maxillary sinusitis. Moderate chronic ethmoid sinus disease. I personally reviewed the CT of head and agree with the report. CT angiography of the head and neck was reported as no large vessel intracranial arterial occlusion, significant stenosis or aneurysm changes seen. While for the neck it is reported as moderate atherosclerotic change at the right carotid bifurcation. This results in moderate just over 50% proximal right ICA stenosis. No significant ICA stenosis on the left. No IV TPA since last normal state was about 3 days ago and the risk of IV TPA outweigh the benefit per the ED Review of Systems Review of system: The 12 point system was reviewed and apparent positive and negative per HPI. Past Medical History Past Medical History: Coronary Artery Disease (CAD), Cancer, Hyperlipidemia, Hypertension, Memory Impairment, Myocardial Infarction ([place]), Osteoarthritis (OA) Additional Past Medical History / Comment(s): 01/25/21 CABG X3 Last Myocardial Infarction Date:: 01/21/21 History of Any Multi-Drug Resistant Organisms: None Reported Past Surgical History: Appendectomy, Bladder Surgery, Bowel Resection, Breast Surgery, Cholecystectomy, Coronary Bypass/CABG, Hysterectomy, Orthopedic Surgery, Tubal Ligation Additional Past Surgical History / Comment(s): cataractsurgery x2 with lens implants, masectomy on right breast, bowel resection with colostomy and reversal, bladder suspension, left knee replacement, skin cancer removed from right ear Past Anesthesia/Blood Transfusion Reactions: No Reported Reaction Past Psychological History: No Psychological Hx Reported, Depression Smoking Status: Former smoker, Unknown if ever smoked Past Alcohol Use History: None Reported Past Drug Use History: None Reported - Past Family History Father Family Medical History: AFIB, Congestive Heart Failure (CHF) Mother Family Medical History: Cancer Additional Family Medical History / Comment(s): breast cancer with mets Medications and Allergies Home Medications Medication Instructions Recorded Confirmed Type Cholecalciferol [Vitamin D3 (25 25 mcg PO DAILY 01/21/21 01/19/23 History Mcg = 1000 Iu)] Losartan [Cozaar] 25 mg PO DAILY 30 Days #30 tab 03/08/21 01/19/23 Rx Apixaban [Eliquis] 2.5 mg PO BID #60 tab 03/17/21 01/19/23 Rx ALPRAZolam [Xanax] 1 mg PO BID 03/31/21 01/19/23 History Midodrine HCl [ProAmatine] 10 mg PO AC-BID 05/18/21 01/19/23 History Aspirin 81 mg PO DAILY 30 Days #30 tab 05/22/21 01/19/23 Rx Metoprolol Tartrate [Lopressor] 12.5 mg PO BID tab 05/22/21 01/19/23 Rx Amitriptyline HCl [Elavil] 20 mg PO HS 01/19/23 01/19/23 History Atorvastatin [Lipitor] 40 mg PO HS 01/19/23 01/19/23 History Ezetimibe [Zetia] 10 mg PO HS 01/19/23 01/19/23 History Furosemide [Lasix] 20 mg PO DAILY 01/19/23 01/19/23 History Pantoprazole Sodium [Protonix] 40 mg PO DAILY 01/19/23 01/19/23 History Potassium Chloride ER [K-Dur 20] 20 meq PO DAILY 01/19/23 01/19/23 History Sertraline [Zoloft] 100 mg PO DAILY 01/19/23 01/19/23 History metFORMIN HCL [Glucophage] 500 mg PO BID 01/19/23 01/19/23 History methIMAzole [Tapazole] 2.5 mg PO DAILY 01/19/23 01/19/23 History predniSONE [Deltasone] See Taper PO DIRECTED 01/19/23 01/19/23 History Allergies Allergy/AdvReac Type Severity Reaction Status Date / Time No Known Allergies Allergy Verified 01/19/23 20:46 Physical Examination - Vital Signs Vital Signs: Vital Signs Temp Pulse Resp BP Pulse Ox 01/20/23 07:32 61 17 144/49 100 01/20/23 05:58 14 01/20/23 04:42 16 116/49 01/20/23 01:05 68 18 135/56 97 01/19/23 22:00 72 22 149/72 97 01/19/23 17:51 98.2 F 63 18 158/78 97 Intake and Output 01/19/23 01/20/23 01/20/23 22:59 06:59 14:59 Other: Weight 58.468 kg GENERAL: The patient is lying in bed and is not in acute distress. NEUROLOGICAL: Higher mental function: The patient is awake, alert, oriented to self, place and time. Patient is following commands. No aphasia and no neglect. Cranial nerves: The pupils are round, equal (about 2mm) and reactive to light. Left eye is proptosis and primary gaze is looking downward (per daughter old). Visual hanson is left upper quandrant anopsia. Extraocular movement is minimal looking to left otherwise has significant restiction in looking in any d irection. Otherwise normal EOM on right. Facial sensation is normal to touch throughout. The facial strength is normal throughout. Hearing is mildly decreased bilaterally to hand rub. Tongue is midline and moved [id number] without any difficulty. No dysarthria is noted. Shoulder shrug is normal bilaterally. Motor: The strength is 5 over 5 throughout. Normal tone and bulk. Cerebellum: Normal finger to nose heel to ring bilaterally. Sensation: Sensation is normal to touch throughout. Reflexes (right/left): 2+ throughout. Plantars are downgoing bilaterally. Results - Laboratory Findings CBC and BMP: 01/19/23 19:20 01/19/23 19:20 Abnormal Lab Findings: Abnormal Labs 01/19/23 01/19/23 01/19/23 19:20 19:20 19:20 WBC 10.9 H RBC 5.48 H Neutrophils # 10.0 H Lymphocytes # 0.6 L APTT 20.4 L Sodium 135 L BUN 51 H Creatinine 1.41 H Glucose 201 H POC Glucose (mg/dL) Creatine Kinase 25 L Triglycerides HDL Cholesterol 01/19/23 01/20/23 19:20 08:50 WBC RBC Neutrophils # Lymphocytes # APTT Sodium BUN Creatinine Glucose POC Glucose (mg/dL) 126 H Creatine Kinase Triglycerides 174.00 H HDL Cholesterol 73.20 H Assessment and Plan Assessment: This is a 77-year-old woman who presented because of the director of her neuro pipe fitter gas pipe because of her at hemianopsia that started 3 days prior to presented to our facility. Subacute ischemic stroke over the right occipital (on examination has left upper quandrant anopsia) Recent hyperthyroidism with proptosis of left eye and was placed on steroids History of atrial fibrillation on eliquis History of Coronary artery disease status post CABG Hypertension Plan: I ordered MRI of the brain, carotid duplex, 2-D echo Patient was resumed on her home dose of eliquis 2.5 mg 1 tablet twice a day. Her ASA was increased from 81 to 325mg daily by the ED team. Neurologic perspective either we go up on Eliquis from 2.5 twice a day to 5 mg twice a day or we discontinue aspirin once her on Plavix since she failed aspirin. She is currently on Lipitor 40 mg daily at bedtime. TSH with free T4 is ordered as well as a hemoglobin A1c by the primary team Continue neuro checks On cardiac monitoring PT OT and [employer] are consulted We'll defer the rest of the medical management to primary team For DVT prophylaxis the patient is on eliquis. The plan was discussed with the patient, her daughter was at bedside and the nurse practitioner from the primary team. Thank you for the consultation Time with Patient: Greater than 30
[2023-01-20] MEDS ORDERED: BENZOCAINE/MENTHOL LOZENG 1 EACH LOZENGE MUCOUS MEM PRN (15:55)
[2023-01-20] MEDS ORDERED: guaiFENesin SYRUP 100MG/5ML 200 MG/10 ML CUP PO PRN (15:55)
--- NOTE | 2023-01-20 16:09 | P.HPIM ---
History of Present Illness H&P Date: 01/20/23 This is a 77-year-old female with medical history significant for atrial fibrillation, heart failure, hypertension, cholesterol, 3 vessel open heart in 2020, right breast cancer with mastectomy, former smoker and chronic kidney disease. Patient presented to the hospital with 3 day history of left eye vision changes reported as "seeing squiggles." She does have vision changes to her right eye and has been followed by an vocational technical education director and has been on oral steroids for this. She went for an eye visit with her neuro-opthalmologist due to the vision changes and on examination that was felt she may have had a new acute stroke was recommended to come to the ER for further evaluation. Notably the patient is maintaining on eliquis 2.5 mg twice a day as well as aspirin 81 mg daily has been compliant with her medications. Patient follows with endocrine outpatient for hyperthyroid and recently had changes to her dose of methimazole. Additionally she was recently started on metformin for hyperglycemia due to the prolonged use of oral steroids. She does report some increasing weakness as wel l as a fever, cough with yellow sputum production. Denies chest pain, denies dizziness/ligheadedness. No vomiting but does report having some nausea and diarrhea as well. Pateint admitted to the [facility] under medicine with neurology consultation. - Brain CT shows focal cortical and subcortical hypodensity right occipital lobe with no prior imaging available for review. There are subacute ischemia suggested no acute cranial hemorrhage or midline shift. There is moderate cervical atrophy. Possible acute on chronic sinusitis. CT angiography was done showing moderate atherosclerotic change of the right carotid bifurcation just over 50% proximal right ICA stenosis and no significant ICA stenosis on the left. No large vessel intracranial arterial occlusion, significant stenosis or aneurysmal changes seen. Chest x-ray shows myocardial megaly and COPD with post-CABG changes there is no definite acute process. There is focal density along the palmar region of the posterior left basal lateral be likely results hip or of static changes related to the costovertebral joint. A nonemergent follow-up CT chest recommended to exclude underlying pulmonary nodule. Patient was noted to be bradycardic and an EKG was performed showing sinus bradycardia with a heart rate of 57 possible left atrial enlargement and a left bundle- branch block. Initial blood work reveals white count 10.9, sodium 135, BUN 51, creatinine 1.51, blood glucose 200s, fasting lipid panel is done with elevation in triglycerides. TSH is <0.0005 and Free T4 2.08. REVIEW OF SYSTEMS: CONSTITUTIONAL: No fever, no malaise, no fatigue. HEENT: No recent visual problems or hearing problems. Denied any sore throat. CARDIOVASCULAR: No chest pain, orthopnea, PND, no palpitations, no syncope. PULMONARY: Reports shortness of breath and cough with yellow sputum, no hemoptysis. GASTROINTESTINAL: Reports nausea and diarrhea no vomiting, no abdominal pain. NEUROLOGICAL: No headaches, no weakness, no numbness. Reports vision changes to the left eye HEMATOLOGICAL: Denies any bleeding or petechiae. GENITOURINARY: Denies any burning micturition, frequency, or urgency. MUSCULOSKELETAL/RHEUMATOLOGICAL: Denies any joint pain, swelling, or any muscle pain. Reports weakness. ENDOCRINE: Denies any polyuria or polydipsia. The rest of the 14-point review of systems is negative. PHYSICAL EXAMINATION: GENERAL: The patient is alert and oriented x3, not in any acute distress. Well developed, well nourished. HEENT: Pupils are round and equally reacting to light. EOMI. No scleral icterus. No conjunctival pallor. Normocephalic, atraumatic. No pharyngeal erythema. No thyromegaly. CARDIOVASCULAR: S1 and S2 present. No murmurs, rubs, or gallops. PULMONARY: Faint scattered ronchi ABDOMEN: Soft, nontender, nondistended, normoactive bowel sounds. No palpable organomegaly. MUSCULOSKELETAL: No joint swelling or deformity. EXTREMITIES: No cyanosis, clubbing, or pedal edema. NEUROLOGICAL: Gross neurological examination did not reveal any focal deficits. focused exam deferred to neurologist SKIN: No rashes. Assessment Acute stroke right occipital with left hemianopsia failed outpatient therapy with eliquis 2.5 mg bid/aspirin 81 mg daily Shortness of breath, cough and fever likely an acute bronchitis chest xray shows COPD changes focal density noted in the left base and unable to exclude underlying pulmonary nodule. 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 on oral prednisone outpatient History atrial fibrillation paroxysmal anticoagulated with eliquis Chronic kidney disease Chronic systolic heart failure Hypertension History of 3 vessel coronary artery bypass grafting History of dyslipidemia Steroid-induced hyperglycemia History of myocardial infarction Hx right breast cancer with mastectomy History of bowel resection with colostomy and reversal Former smoker Plan Neurology consultation patient is scheduled to undergo MRI, Carotid Doppler, echocardiogram to complete stroke workup Cardiology has been consulted due to acute stroke while on eliquis therapy for further recommendations Recommend to hold losartan and lasix and this time patient appears dehydrated and blood pressure is normotensive Recommend to check an A1C level. Patient will receive supportive care and has been started on oral azithromycin, albuterol and pulmicort inhalation treatments Resume all other home medications. PT/OT and speech therapy have been consulted The impression and plan of care has been dictated by Reva Cochran, Nurse Practitioner as directed. Dr. Monie MD I have performed a history and physical examination and medical decision making of this patient, discussed the same with the dictator, and agree with the dictators assessment and plan as written, documented as a scribe. Based on total visit time, I have performed more than 50% of this visit. Past Medical History Past Medical History: Coronary Artery Disease (CAD), Cancer, Hyperlipidemia, Hypertension, Memory Impairment, Myocardial Infarction ([place]), Osteoarthritis (OA) Additional Past Medical History / Comment(s): 01/25/21 CABG X3 Last Myocardial Infarction Date:: 01/21/21 History of Any Multi-Drug Resistant Organisms: None Reported Past Surgical History: Appendectomy, Bladder Surgery, Bowel Resection, Breast Surgery, Cholecystectomy, Coronary Bypass/CABG, Hysterectomy, Orthopedic Surgery, Tubal Ligation Additional Past Surgical History / Comment(s): cataractsurgery x2 with lens implants, masectomy on right breast, bowel resection with colostomy and reversal, bladder suspension, left knee replacement, skin cancer removed from right ear Past Anesthesia/Blood Transfusion Reactions: No Reported Reaction Past Psychological History: No Psychological Hx Reported, Depression Smoking Status: Former smoker, Unknown if ever smoked Past Alcohol Use History: None Reported Past Drug Use History: None Reported - Past Family History Father Family Medical History: AFIB, Congestive Heart Failure (CHF) Mother Family Medical History: Cancer Additional Family Medical History / Comment(s): breast cancer with mets Medications and Allergies Home Medications Medication Instructions Recorded Confirmed Type Cholecalciferol [Vitamin D3 (25 25 mcg PO DAILY 01/21/21 01/19/23 History Mcg = 1000 Iu)] Losartan [Cozaar] 25 mg PO DAILY 30 Days #30 tab 03/08/21 01/19/23 Rx Apixaban [Eliquis] 2.5 mg PO BID #60 tab 03/17/21 01/19/23 Rx ALPRAZolam [Xanax] 1 mg PO BID 03/31/21 01/19/23 History Midodrine HCl [ProAmatine] 10 mg PO AC-BID 05/18/21 01/19/23 History Aspirin 81 mg PO DAILY 30 Days #30 tab 05/22/21 01/19/23 Rx Metoprolol Tartrate [Lopressor] 12.5 mg PO BID tab 05/22/21 01/19/23 Rx Amitriptyline HCl [Elavil] 20 mg PO HS 01/19/23 01/19/23 History Atorvastatin [Lipitor] 40 mg PO HS 01/19/23 01/19/23 History Ezetimibe [Zetia] 10 mg PO HS 01/19/23 01/19/23 History Furosemide [Lasix] 20 mg PO DAILY 01/19/23 01/19/23 History Pantoprazole Sodium [Protonix] 40 mg PO DAILY 01/19/23 01/19/23 History Potassium Chloride ER [K-Dur 20] 20 meq PO DAILY 01/19/23 01/19/23 History Sertraline [Zoloft] 100 mg PO DAILY 01/19/23 01/19/23 History metFORMIN HCL [Glucophage] 500 mg PO BID 01/19/23 01/19/23 History methIMAzole [Tapazole] 2.5 mg PO DAILY 01/19/23 01/19/23 History predniSONE [Deltasone] See Taper PO DIRECTED 01/19/23 01/19/23 History Allergies Allergy/AdvReac Type Severity Reaction Status Date / Time No Known Allergies Allergy Verified 01/19/23 20:46 Physical Exam Vitals: Vital Signs Temp Pulse Resp BP Pulse Ox 01/20/23 07:32 61 17 144/49 100 01/20/23 05:58 14 01/20/23 04:42 16 116/49 01/20/23 01:05 68 18 135/56 97 01/19/23 22:00 72 22 149/72 97 01/19/23 17:51 98.2 F 63 18 158/78 97 Intake and Output 01/19/23 01/20/23 01/20/23 22:59 06:59 14:59 Other: Weight 58.468 kg Results CBC & Chem 7: 01/19/23 19:20 01/19/23 19:20 Labs: Abnormal Lab Results - Last 24 Hours (Table) 01/19/23 01/19/23 01/19/23 Range/Units 19:20 19:20 19:20 WBC 10.9 H (3.8-10.6) k/uL RBC 5.48 H (3.80-5.40) m/uL Neutrophils # 10.0 H (1.3-7.7) k/uL Lymphocytes # 0.6 L (1.0-4.8) k/uL APTT 20.4 L (22.0-30.0) sec Sodium 135 L (137-145) mmol/L BUN 51 H (7-17) mg/dL Creatinine 1.41 H (0.52-1.04) mg/dL Glucose 201 H (74-99) mg/dL POC Glucose (mg/dL) (70-110) mg/dL Creatine Kinase 25 L (30-135) U/L Triglycerides (0.00-149.00) mg/dL HDL Cholesterol (40.00-60.00) mg/dL 01/19/23 01/20/23 Range/Units 19:20 08:50 WBC (3.8-10.6) k/uL RBC (3.80-5.40) m/uL Neutrophils # (1.3-7.7) k/uL Lymphocytes # (1.0-4.8) k/uL APTT (22.0-30.0) sec Sodium (137-145) mmol/L BUN (7-17) mg/dL Creatinine (0.52-1.04) mg/dL Glucose (74-99) mg/dL POC Glucose (mg/dL) 126 H (70-110) mg/dL Creatine Kinase (30-135) U/L Triglycerides 174.00 H (0.00-149.00) mg/dL HDL Cholesterol 73.20 H (40.00-60.00) mg/dL Assessment and Plan Time with Patient: Greater than 30
[2023-01-20 16:20] LABS: Glucose,Whole Blood 126 mg/dL (70-110)
[2023-01-20] MEDS: predniSONE 20 MG TAB PO SCH (16:58)
--- NOTE | 2023-01-20 17:40 | US ---
EXAMINATION TYPE: US carotid duplex BILAT DATE OF EXAM: 01/20/2023 COMPARISON: [facility]A 2022 CLINICAL INDICATION: Female, 77 years old with history of stroke; TECHNIQUE: Carotid duplex ultrasound examination. Indirect Doppler criteria was utilized. FINDINGS: EXAM MEASUREMENTS: RIGHT: Peak Systolic Velocity (PSV) cm/sec ----- Right CCA: 83.2 ----- Right ICA: 111.0 ----- Right ECA: 119.0 ICA/CCA ratio: 1.3 RIGHT: End Diastole cm/sec ----- Right CCA: 4.6 ----- Right ICA: 10.1 ----- Right ECA: 0.0 LEFT: Peak Systolic Velocity (PSV) cm/sec ----- Left CCA: 92.8 ----- Left ICA: 103.0 ----- Left ECA: 148.0 ICA/CCA ratio: 1.1 LEFT: End Diastole cm/sec ----- Left CCA: 0.0 ----- Left ICA: 10.7 ----- Left ECA: 0.0 VERTEBRALS (direction of flow): Right Vertebral: Antegrade Left Vertebral: Antegrade Rhythm: Normal Commutator Tester notes: No significant stenosis IMPRESSION: No hemodynamically significant internal carotid artery stenosis on either side. Criteria for Assigning % of Stenosis / Diameter reduction (Estimation based on the indirect measurements of the internal carotid artery velocities (ICA PSV). 1. Normal (no stenosis)=ICA PSV < 125 cm/s: ratio < 2.0: ICA EDV<40 cm/s. 2. Less than 50% stenosis=ICA PSV < 125 cm/s: ratio < 2.0: ICA EDV<40 cm/s. 3. 50 to 69% stenosis=ICA PSV of 125 to 230 cm/s: ration 2.0 ? 4.0: ICA EDV 40-100 cm/s. 4. Greater than 70% stenosis to near occlusion= ICA PSV > 230 cm/s: ratio > 4.0: ICA EDV > 100 cm/s. 5. Near occlusion= ICA PSV velocities may be low or undetectable: variable ratio and ICA EDV. 6. Total occlusion=unable to detect flow.
[2023-01-20] MEDS: AZITHROMYCIN 250 MG TAB PO SCH (18:28)
[2023-01-20 20:09] LABS: Glucose,Whole Blood 215 mg/dL (70-110)
[2023-01-20] MEDS: ATORVASTATIN 40 MG TAB PO SCH (20:40)
[2023-01-20] MEDS: EZETIMIBE 10 MG TAB PO SCH (20:40)
[2023-01-20] MEDS: ALBUTEROL NEBULIZED 2.5 MG/3 ML INHALATION SCH (21:06)
[2023-01-20] MEDS: BUDESONIDE 0.5 MG/2 ML NEBU INHALATION SCH (21:06)
[2023-01-20] MEDS: AMITRIPTYLINE HCL 10 MG TAB PO SCH ×2 (21:11→21:12)
[2023-01-21 00:22] LABS: Glucose,Whole Blood 265 mg/dL (70-110)
[2023-01-21 05:56] LABS: Glucose,Whole Blood 298 mg/dL (70-110)
[2023-01-21] MEDS: INSULIN ASPART (NovoLOG) 100 UNIT/ML VIAL SQ SCH ×4 (06:54→21:33)
[2023-01-21] MEDS: MIDODRINE 5 MG TAB PO SCH (06:54)
--- NOTE | 2023-01-21 07:11 | CA ---
Transthoracic Echo Report Name: Jenny Larkin Age: 77 Gender: F : 1945 Exam Date: 01/20/2023 12:58 Exam Location: [facility] Ht (in): 59 Wt (lb): 128 Ordering Physician: Denys Cole MD Attending/Referring Phys: Rehabilitation Manager Sami Shah Procedure CPT: Indications: CVA Cardiac Hx: Technical Quality: Technically difficult study Contrast 1: Lumason Total Dose (mL): 5 Contrast 2: Total Dose (mL): MEASUREMENTS (Male / Female) Normal Values 2D ECHO LV Diastolic Diameter PLAX 4.4 cm 4.2 - 5.9 / 3.9 - 5.3 cm LV Systolic Diameter PLAX 3.8 cm IVS Diastolic Thickness 1.7 cm 0.6 - 1.0 / 0.6 - 0.9 cm LVPW Diastolic Thickness 1.1 cm 0.6 - 1.0 / 0.6 - 0.9 cm LV Relative Wall Thickness 0.6 RV Internal Dim ED PLAX 1.9 cm LVOT Diameter 1.7 cm Aortic Root Diameter 2.3 cm LA Systolic Diameter LX 2.6 cm 3.0 - 4.0 / 2.7 - 3.8 cm LV Diastolic Volume MOD BP 66.4 cm??? 67 - 155 / 56 - 104 cm??? LV Systolic Volume MOD BP 31.7 cm??? - 58 / 19 - 49 cm??? LV Ejection Fraction MOD BP 52.3 % >= 55 % LV Cardiac Index MOD BP 885.4 cm???/min???m??? LV Diastolic Volume MOD 4C 69.6 cm??? LV Systolic Volume MOD 4C 34.0 cm??? LV Ejection Fraction MOD 4C 51.1 % LV Cardiac Index MOD 4C 905.5 cm???/min???m??? LV Diastolic Length 4C 7.3 cm LV Systolic Length 4C 6.5 cm LV Diastolic Volume MOD 2C 54.5 cm??? LV Systolic Volume MOD 2C 29.6 cm??? LV Ejection Fraction MOD 2C 45.7 % LV Cardiac Index MOD 2C 634.8 cm???/min???m??? LV Diastolic Length 2C 6.3 cm LV Systolic Length 2C 6.4 cm LA Volume 54.6 cm??? 18 - 58 / 22 - 52 cm??? DOPPLER AV Peak Velocity 111.0 cm/s AV Peak Gradient 4.9 mmHg LVOT Peak Velocity 92.2 cm/s LVOT Peak Gradient 3.4 mmHg AV Area Cont Eq pk 1.8 cm??? MV Peak Velocity 106.9 cm/s MV Peak Gradient 4.6 mmHg MV Mean Velocity 49.7 cm/s MV Mean Gradient 1.2 mmHg MV Velocity Time Integral 52.9 cm MR Peak Velocity 299.0 cm/s MR Peak Gradient 35.8 mmHg Mitral E Point Velocity 75.1 cm/s Mitral A Point Velocity 100.3 cm/s Mitral E to A Ratio 0.7 MV Deceleration Time 289.3 ms MV E' Velocity 2.7 cm/s Mitral E to MV E' Ratio 27.9 TR Peak Velocity 224.4 cm/s TR Peak Gradient 20.2 mmHg Right Ventricular Systolic Press 25.5 mmHg FINDINGS Left Ventricle Normal LV size and wall thickness.left ventricular ejection fraction is estimated at 35-40 %. Global hypokinesis, worse in the inferior and lateral wall Right Ventricle Normal right ventricular size. RVSP=30mmhg. Right Atrium Normal right atrial size. Left Atrium LA volume index= 35ml/m2 Mitral Valve Mild MR.mitral annular calcification. Aortic Valve Trileaflet aortic valve.aortic valve sclerosis. Tricuspid Valve Structurally normal tricuspid valve. Mild TR. Pulmonic Valve Pulmonic valve not well visualized. No pulmonic regurgitation. Pericardium Not well visualized. Aorta Normal size aortic root and proximal ascending aorta. CONCLUSIONS 1. Moderate to severe impairment in the left ventricle systolic function with segmental wall motion abnormality 2. Mild mitral and tricuspid regurgitation Previewed by: Dr. Brian Hess MD (Electronically Signed) Final Date: 21 January 2023 07:11
[2023-01-21] MEDS: predniSONE 20 MG TAB PO SCH (08:36)
[2023-01-21] MEDS: METOPROLOL TARTRATE 12.5 MG TAB PO SCH ×2 (08:36→21:33)
[2023-01-21] MEDS: CHOLECALCIFEROL 25 MCG (1000 IU) TABLET PO SCH (08:36)
[2023-01-21] MEDS: ASPIRIN 325 MG TAB PO SCH (08:37)
[2023-01-21] MEDS: SERTRALINE 100 MG TAB PO SCH (08:37)
[2023-01-21] MEDS: ALPRAZolam 1 MG TAB PO SCH ×2 (08:37→21:32)
[2023-01-21] MEDS: PANTOPRAZOLE 40 MG TABLET PO SCH (08:37)
[2023-01-21] MEDS: APIXABAN 2.5 MG TABLET PO SCH ×2 (08:37→21:32)
[2023-01-21] MEDS: methIMAzole 5 MG TAB PO SCH (08:37)
[2023-01-21 08:41] LABS: Basophils % (A) 0 %; Eosinophils % (A) 0 %; HCT 42.5 % (34.0-46.0); HGB 13.1 gm/dL (11.4-16.0); Hypochromasia Slight; Lymphocytes # (A) 0.5 k/uL (1.0-4.8); Lymphocytes % (A) 4 %; MCH 25.7 pg (25.0-35.0); MCHC 30.8 g/dL (31.0-37.0); MCV 83.6 fL (80.0-100.0); Mean Platelet Volume 7.9; Monocytes # (A) 0.4 k/uL (0-1.0); Monocytes % (A) 4 %; Neutrophils # (A) 10.3 k/uL (1.3-7.7); Neutrophils % (A) 92 %; Platelet Count 214 k/uL (150-450); RBC 5.09 m/uL (3.80-5.40); RDW 14.1 % (11.5-15.5); WBC 11.2 k/uL (3.8-10.6)
[2023-01-21] MEDS: BUDESONIDE 0.5 MG/2 ML NEBU INHALATION SCH ×3 (08:41→21:12)
[2023-01-21] MEDS: ALBUTEROL NEBULIZED 2.5 MG/3 ML INHALATION SCH ×5 (08:41→21:11)
[2023-01-21 08:50] LABS: African American GFR (CKD) 56 (>60 ml/min/1.73 sqM); Anion Gap 13 mmol/L; Blood Urea Nitrogen 35 mg/dL (7-17); Calcium 9.2 mg/dL (8.4-10.2); Carbon Dioxide 20 mmol/L (22-30); Chloride 103 mmol/L (98-107); Glucose 317 mg/dL (74-99); Magnesium 2.4 mg/dL (1.6-2.3); Non-African American GFR(CKD) 49 (>60 ml/min/1.73 sqM); Potassium 5.8 mmol/L (3.5-5.1); Sodium 136 mmol/L (137-145)
--- NOTE | 2023-01-21 09:33 | P.CRDCN ---
History of Present Illness Consult date: 01/21/23 Reason for Consult (text): Acute CVA, history of A. fib History of present illness: History of present illness: This is a 77-year-old female patient of Dr. Hess with past medical history of coronary artery disease with 3 vessel CABG WESLEY to LAD, radial to OM1, VG to PLB in 2020, history of paroxysmal atrial fibrillation on eliquis, cardiomyopathy. We have been asked to evaluate the patient for acute CVA and history of atrial fibrillation. Patient gives history that she is under treatment for Graves' disease affecting the left eye and has been on high-dose steroids. She went for recheck with her internal combustion engine assembler/neurologist and was diagnosed with a new stroke affecting the right eye. Patient was admitted to the cardiac stepdown unit and followed by neurology for subacute ischemic stroke over the right occipital. Patient denies having any chest pain at this time. She states sometimes she feels a little twinge of a heartbeat and feels a little shaky and weak with sweats. She had an episode last evening. She denies any symptoms at this time. Obviously her vision is affected. No palpitations. No lightheadedness or dizz iness. Patient states that she has been taking all of her medications as instructed. Patient is scheduled for MRI of the brain. EKG sinus rhythm at 57 bpm, left bundle branch block, repeat sinus bradycardia 49 bpm Chest x-ray: Mild cardiomegaly and COPD. No definite acute process. CAT scan of the brain focal cortical and subcortical hypodensity right occipital lobe. Subacute ischemia is suggested. No acute intracranial hemorrhage or midline shift. Moderate cerebral atrophy. Possible acute on chronic maxillary sinusitis moderate chronic ethmoid sinus disease. CT angiogram of the head and neck revealed moderate atherosclerotic change at the right carotid bifurcation results in moderate just over 50% proximal right ICA stenosis. No significant ICA stenosis on the left. No large vessel intracranial arterial occlusion, significant stenosis or aneurysmal change. Carotid ultrasound revealed no hemodynamically significant stenosis on either side. Echocardiogram performed on this admission revealed moderate to severe impairment of the left ventricle systolic function with segmental wall motion abnormality, EF 35-40%, mild mitral and tricuspid regurgitation. WBC 11.2, hemoglobin 13.1, platelet count 214. Sodium 136, potassium 5.8, BUN 35 creatinine 1.11. Influenza A, influenza B, RSV, Covid 19 not detected. TSH less than 0.005, free T4 2 0.08. Magnesium 2.4. Troponin negative 1. CK 25. Triglycerides 174, cholesterol 194, LDL 86, HDL 73. Home cardiac medications: Eliquis 2.5 mg twice daily, aspirin 81 mg daily, atorvastatin 40 mg at bedtime, Zetia 10 mg at bedtime, Lasix 20 mg daily, losartan 25 mg daily, Lopressor 12.5 mg twice daily, K-Dur 20 milliequivalents daily, Tapazole 2.5 mg daily. Echocardiogram performed in the office 05/2022 revealed EF 45-50%, moderate mitral regurgitation, mild tricuspid regurgitation, normal pulmonary artery systolic pressure. Cardiac catheterization history 2020 70% stenosis of the L, 90% of the proximal CX, 60% of the ostial RCA, 60% of the mid RCA status post CABG on 01/25/2021 with WESLEY to LAD, radial to OM1, PEG to PLB. Lexiscan stress test 03/05/2021 revealed EF 38%, large fixed apical defect. Review Of Systems: At the time of my evaluation: Constitutional: No fever, no chills. No weakness, fatigue or lethargy. EENT: No headache. No dizziness. Vision changes Lungs: No shortness of breath, cough, no sputum production. No wheezing. Cardiovascular: No chest pain, no lower extremity edema. No palpitations. No paroxysmal nocturnal dyspnea. No orthopnea. No lightheadedness or dizziness. No syncopal episodes. Abdominal: No abdominal pain. No nausea, vomiting. No diarrhea. No constipation. No bloody or tarry stools. Genitourinary: No dysuria.. No urinary retention. Musculoskeletal: No myalgias. No muscle weakness, no frequent falls. No back pain. No neck pain. Integumentary: No wounds. No rash. No unusual bruising. Neurologic: No aphasia. No facial droop. No change in mentation. No head injury. No headache. Physical examination: Gen: This is a 77-year-old female. She is a bleeding in her room without difficulty, resting in bed with no acute distress VS: reviewed HEENT: Head is atraumatic, normocephalic. Pupils equal, round. Sclerae is anicteric. NECK: Supple. No JVD. . LUNGS: Clear to auscultation. No wheezes or rhonchi. No intercostal retractions. HEART: Regular rate and rhythm. 2/6 systolic murmur. ABDOMEN: Soft No tenderness. EXTREMITIES: No pedal edema. No calf tenderness. NEUROLOGICAL: Patient is awake, alert and oriented x3. Assessment: Subacute ischemic stroke over the right occipital Graves ophthalmopathy Coronary artery disease status post three-vessel CABG Paroxysmal atrial fibrillation on eliquis Cardiomyopathy Plan: Resume patient's home cardiac medications Patient will be scheduled for MARY tomorrow with Dr. Hess Further recommendations to follow based upon clinical course Thank you kindly for this consultation. Nurse practitioner note has been reviewed, I agree with documented findings and plan of care. Patient was seen and examined. Past Medical History Past Medical History: Coronary Artery Disease (CAD), Cancer, Hyperlipidemia, Hypertension, Memory Impairment, Myocardial Infarction ([place]), Osteoarthritis (OA) Additional Past Medical History / Comment(s): 01/25/21 CABG X3 Last Myocardial Infarction Date:: 01/21/21 History of Any Multi-Drug Resistant Organisms: None Reported Past Surgical History: Appendectomy, Bladder Surgery, Bowel Resection, Breast Surgery, Cholecystectomy, Coronary Bypass/CABG, Hysterectomy, Orthopedic Surgery, Tubal Ligation Additional Past Surgical History / Comment(s): cataractsurgery x2 with lens implants, masectomy on right breast, bowel resection with colostomy and reversal, bladder suspension, left knee replacement, skin cancer removed from right ear Past Anesthesia/Blood Transfusion Reactions: No Reported Reaction Past Psychological History: No Psychological Hx Reported, Depression Smoking Status: Former smoker, Unknown if ever smoked Past Alcohol Use History: None Reported Past Drug Use History: None Reported - Past Family History Father Family Medical History: AFIB, Congestive Heart Failure (CHF) Mother Family Medical History: Cancer Additional Family Medical History / Comment(s): breast cancer with mets Medications and Allergies Home Medications Medication Instructions Recorded Confirmed Type Cholecalciferol [Vitamin D3 (25 25 mcg PO DAILY 01/21/21 01/19/23 History Mcg = 1000 Iu)] Losartan [Cozaar] 25 mg PO DAILY 30 Days #30 tab 03/08/21 01/19/23 Rx Apixaban [Eliquis] 2.5 mg PO BID #60 tab 03/17/21 01/19/23 Rx ALPRAZolam [Xanax] 1 mg PO BID 03/31/21 01/19/23 History Midodrine HCl [ProAmatine] 10 mg PO AC-BID 05/18/21 01/19/23 History Aspirin 81 mg PO DAILY 30 Days #30 tab 05/22/21 01/19/23 Rx Metoprolol Tartrate [Lopressor] 12.5 mg PO BID tab 05/22/21 01/19/23 Rx Amitriptyline HCl [Elavil] 20 mg PO HS 01/19/23 01/19/23 History Atorvastatin [Lipitor] 40 mg PO HS 01/19/23 01/19/23 History Ezetimibe [Zetia] 10 mg PO HS 01/19/23 01/19/23 History Furosemide [Lasix] 20 mg PO DAILY 01/19/23 01/19/23 History Pantoprazole Sodium [Protonix] 40 mg PO DAILY 01/19/23 01/19/23 History Potassium Chloride ER [K-Dur 20] 20 meq PO DAILY 01/19/23 01/19/23 History Sertraline [Zoloft] 100 mg PO DAILY 01/19/23 01/19/23 History metFORMIN HCL [Glucophage] 500 mg PO BID 01/19/23 01/19/23 History methIMAzole [Tapazole] 2.5 mg PO DAILY 01/19/23 01/19/23 History predniSONE [Deltasone] See Taper PO DIRECTED 01/19/23 01/19/23 History Allergies Allergy/AdvReac Type Severity Reaction Status Date / Time No Known Allergies Allergy Verified 01/19/23 20:46 Physical Exam Vitals: Vital Signs Temp Pulse Pulse Resp BP Pulse Ox 01/21/23 07:41 61 16 136/96 01/21/23 04:00 97.6 F 51 L 18 121/62 99 01/21/23 01:53 64 18 01/21/23 00:00 98.3 F 64 18 131/61 95 01/20/23 21:21 60 01/20/23 21:09 59 L 01/20/23 20:00 98.7 F 53 L 16 149/62 98 01/20/23 16:53 75 16 126/84 96 01/20/23 12:00 97.9 F 53 L 16 135/61 97 Intake and Output 01/20/23 01/21/23 01/21/23 22:59 06:59 14:59 Intake Total 480 Balance 480 Intake: Oral 480 Other: # Voids 2 0 Results 01/21/23 07:50 01/21/23 07:50 Lipids 01/19/23 Range/Units 19:20 Triglycerides 174.00 H (0.00-149.00) mg/dL Cholesterol 194.00 (0.00-200.00) mg/dL HDL Cholesterol 73.20 H (40.00-60.00) mg/dL Cholesterol/HDL Ratio 2.65 Ratio CBC 01/21/23 Range/Units 07:50 WBC 11.2 H (3.8-10.6) k/uL RBC 5.09 (3.80-5.40) m/uL Hgb 13.1 (11.4-16.0) gm/dL Hct 42.5 (34.0-46.0) % Plt Count 214 (150-450) k/uL Comprehensive Metabolic Panel 01/21/23 Range/Units 07:50 Sodium 136 L (137-145) mmol/L Potassium 5.8 H (3.5-5.1) mmol/L Chloride 103 (98-107) mmol/L Carbon Dioxide 20 L (22-30) mmol/L BUN 35 H (7-17) mg/dL Creatinine 1.11 H (0.52-1.04) mg/dL Glucose 317 H (74-99) mg/dL Calcium 9.2 (8.4-10.2) mg/dL Current Medications Generic Name Dose Route Start Last Admin Trade Name Freq PRN Reason Stop Dose Admin Acetaminophen 650 mg 01/20/23 12:07 01/20/23 12:20 Acetaminophen Tab 325 Mg Tab PO 650 mg Q6HR PRN Administration Fever and/ or Pain Albuterol Sulfate 2.5 mg 01/20/23 20:00 01/21/23 08:41 Albuterol Nebulized 2.5 Mg/3 Ml INHALATION 2.5 mg RT-QID JAZ Administration Alprazolam 1 mg 01/19/23 22:15 01/21/23 08:37 Alprazolam 1 Mg Tab PO 1 mg BID JAZ Administration Amitriptyline HCl 20 mg 01/19/23 22:30 01/20/23 21:12 Amitriptyline Hcl 10 Mg Tab PO 20 mg HS JAZ Administration Apixaban 2.5 mg 01/20/23 09:00 01/21/23 08:37 Apixaban 2.5 Mg Tablet PO 2.5 mg BID JAZ Administration Protocol Aspirin 325 mg 01/20/23 09:00 01/21/23 08:37 Aspirin 325 Mg Tab PO 325 mg DAILY JAZ Administration Atorvastatin Calcium 40 mg 01/19/23 22:15 01/20/23 20:40 Atorvastatin 40 Mg Tab PO 40 mg HS JAZ Administration Azithromycin 250 mg 01/20/23 18:00 01/20/23 18:28 Azithromycin 250 Mg Tab PO 01/23/23 12:01 Not Given DAILY@1200 [facility] Protocol Benzocaine/Menthol 1 each 01/20/23 15:55 Benzocaine/Menthol Lozeng 1 Each Lozenge MUCOUS MEM Q4HR PRN Sore Throat Budesonide 0.5 mg 01/20/23 20:00 01/21/23 08:41 Budesonide 0.5 Mg/2 Ml Nebu INHALATION 0.5 mg RT-BID JAZ Administration Cholecalciferol 25 mcg 01/20/23 09:00 01/21/23 08:36 Cholecalciferol 25 Mcg (1000 Iu) Tablet PO 25 mcg DAILY JAZ Administration Dextrose/Water 25 ml 01/20/23 10:09 Dextrose 50% Syringe 50 Ml IVP PER PROTOCOL PRN Hypoglycemia Protocol Dextrose/Water 50 ml 01/20/23 10:09 Dextrose 50% Syringe 50 Ml IVP PER PROTOCOL PRN Hypoglycemia Protocol Ezetimibe 10 mg 01/20/23 21:00 01/20/23 20:40 Ezetimibe 10 Mg Tab PO 10 mg HS JAZ Administration Guaifenesin 200 mg 01/20/23 15:55 Guaifenesin Syrup 100mg/5ml 200 Mg/10 Ml Cup PO Q6HR PRN Cough Insulin Aspart 0 unit 01/20/23 12:30 01/21/23 06:54 Insulin Aspart (Novolog) 100 Unit/Ml Vial SQ 3 unit ACHS JAZ Administration Protocol Methimazole 2.5 mg 01/20/23 09:00 01/21/23 08:37 Methimazole 5 Mg Tab PO 2.5 mg DAILY JAZ Administration Metoprolol Tartrate 12.5 mg 01/19/23 22:15 01/21/23 08:36 Metoprolol Tartrate 12.5 Mg Tab PO 12.5 mg BID JAZ Administration Midodrine 10 mg 01/19/23 22:15 01/21/23 06:54 Midodrine 5 Mg Tab PO 10 mg AC-BID JAZ Administration Pantoprazole Sodium 40 mg 01/20/23 09:00 01/21/23 08:37 Pantoprazole 40 Mg Tablet PO 40 mg DAILY JAZ Administration Prednisone 40 mg 01/20/23 16:30 01/21/23 08:36 Prednisone 20 Mg Tab PO 40 mg DAILY JAZ Administration Sertraline HCl 100 mg 01/20/23 09:00 01/21/23 08:37 Sertraline 100 Mg Tab PO 100 mg DAILY JAZ Administration Intake and Output 01/20/23 01/21/23 01/21/23 22:59 06:59 14:59 Intake Total 480 Balance 480 Intake: Oral 480 Other: # Voids 2 0 01/21/23 07:50 01/21/23 07:50
[2023-01-21] MEDS ORDERED: SODIUM ZIRCONIUM CYCLOSILICATE 10 GM PACKET PO ONE ×2 (09:40→18:56)
[2023-01-21] MEDS ORDERED: DEXTROSE 50% SYRINGE 50 ML IVP ONE (09:41)
[2023-01-21] MEDS ORDERED: SODIUM BICARB 8.4% 50 ML SYR (1 MEQ/ML) IV ONE (09:41)
[2023-01-21] MEDS ORDERED: INSULIN REGULAR 100 UNIT/ML VIAL (IV) IV ONE (09:41)
[2023-01-21] MEDS: INSULIN DETEMIR (LEVEMIR) 100 UNIT/ML SYR SQ SCH ×2 (11:23→21:33)
[2023-01-21 11:36] LABS: Glucose,Whole Blood 349 mg/dL (70-110)
--- NOTE | 2023-01-21 12:04 | P.PN ---
Subjective Progress Note Date: 01/21/23 The patient seen at bedside and she feels she is about the same. She continues to have visual defect but otherwise no other neurological issues. Objective - Vital Signs Vital signs: Vital Signs Temp 97.6 F 01/21/23 04:00 Pulse 61 01/21/23 07:41 Resp 16 01/21/23 07:41 BP 136/96 01/21/23 07:41 Pulse Ox 98 01/21/23 09:13 FiO2 Intake & Output 01/20/23 01/21/23 01/21/23 18:59 06:59 18:59 Intake Total 1020 Balance 1020 Weight 58.468 kg Intake: Oral 1020 Other: # Voids 1 0 - Exam GENERAL: The patient is lying in bed and is not in acute distress. NEUROLOGICAL: Higher mental function: The patient is awake, alert, oriented to self, place and time. Patient is following commands. No aphasia and no neglect. Cranial nerves: The pupils are round, equal (about 2mm) and reactive to light. Left eye is proptosis and primary gaze is looking downward (per daughter old). Visual hanson is left upper quandrant anopsia. Extraocular movement is minimal looking to left otherwise has significant restiction in looking in any directio n. Otherwise normal EOM on right. Facial sensation is normal to touch throughout. The facial strength is normal throughout. Hearing is mildly decreased bilaterally to hand rub. Tongue is midline and moved [id number] without any difficulty. No dysarthria is noted. Shoulder shrug is normal b ilaterally. Motor: The strength is 5 over 5 throughout. Normal tone and bulk. Cerebellum: Normal finger to nose heel to ring bilaterally. Sensation: Sensation is normal to touch throughout. Reflexes (right/left): 2+ throughout. Plantars are downgoing bilaterally. Some of the workup in our facility consisted of: Lipid panel as triglyceride 174, cholesterol 194, LDLs 86 and HDL 73 11 A1c is 8.7 TSH is less than 9.005 but the free T4 is 2.08. CT of the head is reported as focal cortical and subcortical hypodensity over right occipital lobe. Subacute ischemia suggested. No acute intracranial hemorrhage or midline shift. Possible acute on chronic maxillary sinusitis. Moderate chronic ethmoid sinus disease. I personally reviewed the CT of head and agree with the report. CT angiography of the head and neck was reported as no large vessel intracranial arterial occlusion, significant stenosis or aneurysm changes seen. While for the neck it is reported as moderate atherosclerotic change at the right carotid bifurcation. This results in moderate just over 50% proximal right ICA stenosis. No significant ICA stenosis on the left. 2-D echo was reported as moderately to severely impaired left ventricle systolic function with segmental wall motion abnormality. Carotid duplex is reported as no hemodynamically significant internal carotid artery stenosis on either side. - Labs CBC & Chem 7: 01/21/23 07:50 01/21/23 07:50 Labs: Abnormal Lab Results - Last 24 Hours (Table) 01/19/23 01/19/23 01/20/23 Range/Units 19:20 19:20 16:19 WBC (3.8-10.6) k/uL MCHC (31.0-37.0) g/dL Neutrophils # (1.3-7.7) k/uL Lymphocytes # (1.0-4.8) k/uL Sodium (137-145) mmol/L Potassium (3.5-5.1) mmol/L Carbon Dioxide (22-30) mmol/L BUN (7-17) mg/dL Creatinine (0.52-1.04) mg/dL Glucose (74-99) mg/dL POC Glucose (mg/dL) 126 H (70-110) mg/dL Hemoglobin A1c 8.7 H (<=6.0) % Magnesium (1.6-2.3) mg/dL TSH <0.005 L (0.350-5.500) UIU/ML Free (T4) Reflex I 2.08 H (0.80-1.80) ng/dL 01/20/23 01/21/23 01/21/23 Range/Units 20:07 00:20 05:55 WBC (3.8-10.6) k/uL MCHC (31.0-37.0) g/dL Neutrophils # (1.3-7.7) k/uL Lymphocytes # (1.0-4.8) k/uL Sodium (137-145) mmol/L Potassium (3.5-5.1) mmol/L Carbon Dioxide (22-30) mmol/L BUN (7-17) mg/dL Creatinine (0.52-1.04) mg/dL Glucose (74-99) mg/dL POC Glucose (mg/dL) 215 H 265 H 298 H (70-110) mg/dL Hemoglobin A1c (<=6.0) % Magnesium (1.6-2.3) mg/dL TSH (0.350-5.500) UIU/ML Free (T4) Reflex I (0.80-1.80) ng/dL 01/21/23 01/21/23 01/21/23 Range/Units 07:50 07:50 11:34 WBC 11.2 H (3.8-10.6) k/uL MCHC 30.8 L (31.0-37.0) g/dL Neutrophils # 10.3 H (1.3-7.7) k/uL Lymphocytes # 0.5 L (1.0-4.8) k/uL Sodium 136 L (137-145) mmol/L Potassium 5.8 H (3.5-5.1) mmol/L Carbon Dioxide 20 L (22-30) mmol/L BUN 35 H (7-17) mg/dL Creatinine 1.11 H (0.52-1.04) mg/dL Glucose 317 H (74-99) mg/dL POC Glucose (mg/dL) 349 H (70-110) mg/dL Hemoglobin A1c (<=6.0) % Magnesium 2.4 H (1.6-2.3) mg/dL TSH (0.350-5.500) UIU/ML Free (T4) Reflex I (0.80-1.80) ng/dL Assessment and Plan Assessment: This is a 77-year-old woman who presented because of the director of 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 Subacute ischemic stroke over the right occipital (on examination has left upper quandrant anopsia). Unknown exact cause rule out cardioembolic especially with segmental wall motion abnormality on the 2-D echo Systolic heart failure with ejection fraction of 35-40% with segmental wall motion abnormality on the 2-D echo Recent hyperthyroidism with proptosis of left eye and was placed on steroids History of atrial fibrillation on eliquis History of Coronary artery disease status post CABG Hypertension Diabetes mellitus with a hemoglobin A1c of 8.7. Plan: Pending MRI of the brain Patient was resumed on her home dose of eliquis 2.5 mg 1 tablet twice a day. Her ASA was increased from 81 to 325mg daily by the ED team. From neurological perspective, either we go up on Eliquis from 2.5 twice a day to 5 mg twice a day or we discontinue aspirin once her on Plavix since she failed aspirin. She is currently on Lipitor 40 mg daily at bedtime. Cardiology team is consulted and are planning for MARY tomorrow Continue neuro checks On cardiac monitoring PT OT and CAPTAIN'S ASSISTANT are consulted We'll defer the rest of the medical management to primary team For DVT prophylaxis the patient is on eliquis. The plan was discussed with the patient. Time with Patient: Less than 30
[2023-01-21] MEDS: AZITHROMYCIN 250 MG TAB PO SCH (12:17)
[2023-01-21] MEDS ORDERED: AZITHROMYCIN 250 MG TAB PO ONE (13:00)
[2023-01-21] MEDS: MAG HYDROX/AL HYDROX/SIMETH 30 ML, diphenhydrAMINE ELIXIR 75 MG, LIDOCAINE VISCOUS 2% 3... PO SCH ×9 (14:33→21:33)
--- NOTE | 2023-01-21 15:03 | P.PN ---
Subjective Progress Note Date: 01/21/23 This is a 77-year-old female with medical history significant for atrial fibrillation, heart failure, hypertension, cholesterol, 3 vessel open heart in 2020, right breast cancer with mastectomy, former smoker and chronic kidney disease. Patient presented to the hospital with 3 day history of left eye visi on changes reported as "seeing squiggles." She does have vision changes to her right eye and has been followed by an processing manager and has been on oral steroids for this. She went for an eye visit with her neuro-opthalmologist due to the vision changes and on examination that was felt she may have had a new acute stroke was recommended to come to the ER for further evaluation. Notably the patient is maintaining on eliquis 2.5 mg twice a day as well as aspirin 81 mg daily has been compliant with her medications. Patient follows with endocrine outpatient for hyperthyroid and recently had changes to her dose of methimazole. Additionally she was recently started on metformin for hyperglycemia due to the prolonged use of oral steroids. She does report some increasing weakness as well as a fever, cough with yellow sputum production. Denies chest pain, denies dizziness/ligheadedness. No vomiting but does report having some nausea and diarrhea as well. [facility]int admitted [facility] under medicine with neurology consultation. - Brain CT shows focal cortical and subcortical hypodensity right occipital lobe with no prior imaging available for review. There are subacute ischemia sugg ested no acute cranial hemorrhage or midline shift. There is moderate cervical atrophy. Possible acute on chronic sinusitis. CT angiography was done showing moderate atherosclerotic change of the right carotid bifurcation just over 50% proximal right ICA stenosis and no significant ICA stenosis on the left. No large vessel intracranial arterial occlusion, significant stenosis or aneurysmal changes seen. Chest x-ray shows myocardial megaly and COPD with post-CABG changes there is no definite acute process. There is focal density along the palmar region of the posterior left basal lateral be likely results hip or of static changes related to the costovertebral joint. A nonemergent follow-up CT chest recommended to exclude underlying pulmonary nodule. Patient was noted to be bradycardic and an EKG was performed showing sinus bradycardia with a heart rate of 57 possible left atrial enlargement and a left bundle-branch block. Initial blood work reveals white count 10.9, sodium 135, BUN 51, creatinine 1.51, blood glucose 200s, fasting lipid panel is done with elevation in triglycerides. TSH is <0.0005 and Free T4 2.08. 01/21/2023 Patient is evaluated today sitting in the bed she does report improvement in her breathing less short of breath. Her lungs are clear today. Patient was evaluated by cardiology who is recommending patient to undergo a MARY which is scheduled for the morning. Otherwise she will undergo an MRI today. Potassium was elevated at 5.8 today patient did receive a cocktail of an amp of dextrose amp of sodium bicarbonate and 10 units of regular insulin. Patient is also hyperglycemic up in the 300s today noted that her hemoglobin A1c was elevated at 8.7 this was likely due to the high-dose of steroids for the last 4 weeks for her Graves' eye disease. Creatinine has improved down to 1.11. Patient continues on aspirin 325 mg daily as well as eliquis 2.5 mg twice a day. Review of Systems Constitutional: Denied any fatigue denied any fever. Cardio vascular: denied any chest pain, palpitations Gastrointestinal: denied any nausea, vomiting, diarrhea Pulmonary: Denied any shortness of breath cough Neurologic denied any new focal deficits All inpatient medications were reviewed and appropriate changes in these medications as dictated in the interval history and assessment and plan. PHYSICAL EXAMINATION: GENERAL: The patient is alert and oriented x3, not in any acute distress. Well developed, well nourished. HEENT: Pupils are round and equally reacting to light. EOMI. No scleral icterus. No conjunctival pallor. Normocephalic, atraumatic. No pharyngeal erythema. No thyromegaly. CARDIOVASCULAR: S1 and S2 present. No murmurs, rubs, or gallops. PULMONARY: Faint scattered ronchi ABDOMEN: Soft, nontender, nondistended, normoactive bowel sounds. No palpable organomegaly. MUSCULOSKELETAL: No joint swelling or deformity. EXTREMITIES: No cyanosis, clubbing, or pedal edema. NEUROLOGICAL: Gross neurological examination did not reveal any focal deficits. focused exam deferred to neurologist SKIN: No rashes. Assessment Acute ischemic stroke right occipital with left hemianopsia failed outpatient therapy with eliquis 2.5 mg bid/aspirin 81 mg daily Shortness of breath, cough and fever likely an acute bronchitis chest xray shows COPD changes focal density noted in the left base and unable to exclude underlying pulmonary nodule. 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 on oral prednisone outpatient History atrial fibrillation paroxysmal anticoagulated with eliquis Chronic kidney disease Chronic systolic heart failure Hypertension History of 3 vessel coronary artery bypass grafting History of dyslipidemia Steroid-induced hyperglycemia History of myocardial infarction Hx right breast cancer with mastectomy History of bowel resection with colostomy and reversal Former smoker Plan Neurology consultation in place patient is currently pending an MRI Cardiology following recommending MARY which will be done in the AM patient is currently NPO Recommend to hold losartan and lasix and this time patient appears dehydrated and blood pressure is normotensive A1C elevated 8.7 however this is likely skewed due to the recent use of high dos e of oral prednisone over the last 4 weeks, recommend to f/u with an A1C level after completion of steroids patient may require oral diabetic medication on discharge. Patient will receive supportive care and has been started on oral azithromycin, albuterol and pulmicort inhalation treatments PT/OT and speech therapy have been consulted The impression and plan of care has been dictated by Reva Cochran, Nurse Practitioner as directed. Dr. Monie MD I have performed a history and physical examination and medical decision making of this patient, discussed the same with the dictator, and agree with the dictators assessment and plan as written, documented as a scribe. Based on total visit time, I have performed more than 50% of this visit. Objective - Vital Signs Vital signs: Vital Signs Temp 97.6 F 01/21/23 04:00 Pulse 61 01/21/23 07:41 Resp 16 01/21/23 07:41 BP 136/96 01/21/23 07:41 Pulse Ox 98 01/21/23 09:13 FiO2 Intake & Output 01/20/23 01/21/23 01/21/23 18:59 06:59 18:59 Intake Total 1020 Balance 1020 Weight 58.468 kg Intake: Oral 1020 Other: # Voids 1 0 - Labs CBC & Chem 7: 01/21/23 07:50 01/21/23 07:50 Labs: Abnormal Lab Results - Last 24 Hours (Table) 01/19/23 01/19/23 01/20/23 Range/Units 19:20 19:20 11:27 WBC (3.8-10.6) k/uL MCHC (31.0-37.0) g/dL Neutrophils # (1.3-7.7) k/uL Lymphocytes # (1.0-4.8) k/uL Sodium (137-145) mmol/L Potassium (3.5-5.1) mmol/L Carbon Dioxide (22-30) mmol/L BUN (7-17) mg/dL Creatinine (0.52-1.04) mg/dL Glucose (74-99) mg/dL POC Glucose (mg/dL) 201 H (70-110) mg/dL Hemoglobin A1c 8.7 H (<=6.0) % Magnesium (1.6-2.3) mg/dL TSH <0.005 L (0.350-5.500) UIU/ML Free (T4) Reflex I 2.08 H (0.80-1.80) ng/dL 01/20/23 01/20/23 01/21/23 Range/Units 16:19 20:07 00:20 WBC (3.8-10.6) k/uL MCHC (31.0-37.0) g/dL Neutrophils # (1.3-7.7) k/uL Lymphocytes # (1.0-4.8) k/uL Sodium (137-145) mmol/L Potassium (3.5-5.1) mmol/L Carbon Dioxide (22-30) mmol/L BUN (7-17) mg/dL Creatinine (0.52-1.04) mg/dL Glucose (74-99) mg/dL POC Glucose (mg/dL) 126 H 215 H 265 H (70-110) mg/dL Hemoglobin A1c (<=6.0) % Magnesium (1.6-2.3) mg/dL TSH (0.350-5.500) UIU/ML Free (T4) Reflex I (0.80-1.80) ng/dL 01/21/23 01/21/23 01/21/23 Range/Units 05:55 07:50 07:50 WBC 11.2 H (3.8-10.6) k/uL MCHC 30.8 L (31.0-37.0) g/dL Neutrophils # 10.3 H (1.3-7.7) k/uL Lymphocytes # 0.5 L (1.0-4.8) k/uL Sodium 136 L (137-145) mmol/L Potassium 5.8 H (3.5-5.1) mmol/L Carbon Dioxide 20 L (22-30) mmol/L BUN 35 H (7-17) mg/dL Creatinine 1.11 H (0.52-1.04) mg/dL Glucose 317 H (74-99) mg/dL POC Glucose (mg/dL) 298 H (70-110) mg/dL Hemoglobin A1c (<=6.0) % Magnesium 2.4 H (1.6-2.3) mg/dL TSH (0.350-5.500) UIU/ML Free (T4) Reflex I (0.80-1.80) ng/dL Assessment and Plan Time with Patient: Less than 30
[2023-01-21 16:42] LABS: Potassium 5.8 mmol/L (3.5-5.1)
[2023-01-21 16:53] LABS: Glucose,Whole Blood 143 mg/dL (70-110)
[2023-01-21] MEDS ORDERED: ONDANSETRON 4 MG/2 ML VIAL IVP PRN (19:19)
[2023-01-21 20:04] LABS: Glucose,Whole Blood 267 mg/dL (70-110)
[2023-01-21] MEDS: AMITRIPTYLINE HCL 10 MG TAB PO SCH (21:32)
[2023-01-21] MEDS: ATORVASTATIN 40 MG TAB PO SCH (21:33)
[2023-01-21] MEDS: EZETIMIBE 10 MG TAB PO SCH (21:33)
[2023-01-22 06:16] LABS: Glucose,Whole Blood 88 mg/dL (70-110)
[2023-01-22] MEDS: INSULIN ASPART (NovoLOG) 100 UNIT/ML VIAL SQ SCH ×4 (06:49→20:33)
[2023-01-22 08:03] LABS: Basophils % (A) 0 %; Eosinophils # (A) 0.1 k/uL (0-0.7); Eosinophils % (A) 1 %; HCT 39.4 % (34.0-46.0); HGB 12.8 gm/dL (11.4-16.0); Lymphocytes % (A) 16 %; MCH 26.3 pg (25.0-35.0); MCHC 32.4 g/dL (31.0-37.0); MCV 81.2 fL (80.0-100.0); Mean Platelet Volume 7.9; Monocytes # (A) 0.6 k/uL (0-1.0); Monocytes % (A) 5 %; Neutrophils # (A) 9.3 k/uL (1.3-7.7); Neutrophils % (A) 77 %; Platelet Count 194 k/uL (150-450); RBC 4.85 m/uL (3.80-5.40); RDW 13.8 % (11.5-15.5)
[2023-01-22 08:22] LABS: African American GFR (CKD) 53 (>60 ml/min/1.73 sqM); Anion Gap 3 mmol/L; Blood Urea Nitrogen 32 mg/dL (7-17); Calcium 8.8 mg/dL (8.4-10.2); Carbon Dioxide 29 mmol/L (22-30); Chloride 105 mmol/L (98-107); Glucose 85 mg/dL (74-99); Non-African American GFR(CKD) 46 (>60 ml/min/1.73 sqM); Sodium 137 mmol/L (137-145)
[2023-01-22] MEDS: ALPRAZolam 1 MG TAB PO SCH ×2 (09:04→20:33)
[2023-01-22] MEDS: METOPROLOL TARTRATE 12.5 MG TAB PO SCH ×2 (09:04→22:36)
[2023-01-22] MEDS: PANTOPRAZOLE 40 MG TABLET PO SCH (09:04)
[2023-01-22] MEDS: predniSONE 20 MG TAB PO SCH (09:05)
[2023-01-22] MEDS: AZITHROMYCIN 500 MG TAB PO SCH (09:05)
[2023-01-22] MEDS: SERTRALINE 100 MG TAB PO SCH (09:05)
[2023-01-22] MEDS: APIXABAN 2.5 MG TABLET PO SCH ×2 (09:05→20:33)
[2023-01-22] MEDS: ASPIRIN 325 MG TAB PO SCH (09:05)
[2023-01-22] MEDS: CHOLECALCIFEROL 25 MCG (1000 IU) TABLET PO SCH (09:05)
[2023-01-22] MEDS ORDERED: fentaNYL (PF) 50 MCG/ML 2 ML AMP ONE (09:19)
[2023-01-22] MEDS: BUDESONIDE 0.5 MG/2 ML NEBU INHALATION SCH ×2 (09:43→23:48)
[2023-01-22] MEDS: ALBUTEROL NEBULIZED 2.5 MG/3 ML INHALATION SCH ×4 (09:43→23:48)
[2023-01-22] MEDS ORDERED: BENZOCAINE SPRAY 1 CAN TOPICAL ONE ×2 (10:25→11:23)
[2023-01-22] MEDS ORDERED: SODIUM CHLORIDE 0.9% 250 ML IV ONE (10:28)
[2023-01-22] MEDS ORDERED: MIDAZOLAM 2 MG/2 ML VIAL IVP ONE ×2 (11:27→11:30)
[2023-01-22] MEDS ORDERED: fentaNYL (PF) 50 MCG/ML 2 ML AMP IVP ONE (11:27)
--- NOTE | 2023-01-22 11:44 | P.PCN ---
Date of Procedure: 01/22/23 Description of Procedure: Indication: Evaluation of cardiac source for CVA Procedure Description: After explaining the procedure to the patient, it's risk and complications, blood pressure, heart rate and O2 saturation were monitored. The throat was sprayed with Cetacaine. Patient received 3 mg intravenous Versed, 50 mcg intravenous fentanyl. The probe was introduced into the esophagus without difficulty. Images were obtained. Following that, the probe was removed. There was no immediate complication. Findings: Left atrial size is mildly dilated, the left atrial appendage is close. The ventricle size is normal there is anteroapical hypokinesis and ejection fraction 35-40%. Aortic valve revealed fibrocalcific changes of the aortic cusps with preserved opening, mitral valve showed mitral annulus calcification. Mild atherosclerotic changes of the descending thoracic aorta was noted. No peric ardial effusion was noted. Contrast bubble study revealed no shunting across the intra-atrial septum Doppler: Pulse wave and color Doppler were obtained, and revealed mild to moderate mitral with mild tricuspid regurgitation and aortic regurgitation. There is no shunting across the intra-atrial septum Conclusion: 1. Mildly dilated left atrium was occluded left atrial appendage and no flow noted 2. Moderate impairment of the left ventricle systolic function 3. No shunting across the intra-atrial septum 4. Mild to moderate mitral and mild tricuspid regurgitation 5. Mild aortic regurgitation
[2023-01-22 11:59] LABS: Glucose,Whole Blood 108 mg/dL (70-110)
[2023-01-22] MEDS: INSULIN DETEMIR (LEVEMIR) 100 UNIT/ML SYR SQ SCH ×2 (14:05→20:33)
--- NOTE | 2023-01-22 14:27 | MR ---
EXAMINATION TYPE: MR brain wo con DATE OF EXAM: 01/22/2023 1:43 PM COMPARISON: CT brain 731. CLINICAL INDICATION:Female, 77 years old with history of stroke; TECHNIQUE: Multi planar, multi sequence imaging was performed through the brain including: T1, T2, In version recovery, Diffusion weighted imaging, and gradient echo imaging. No gadolinium was given. FINDINGS: Right occipital lobe gyriform restricted diffusion compatible with CT findings. There is blooming art ifact within this region compatible with hemosiderin deposition. There is high intrinsic T1 signal wi thin this region. Cerebral atrophy with proportional dilation of ventricular system. Scattered foci o f high T2 signal intensity are seen within the periventricular white matter. Midline structures show no abnormality. The bone marrow signal is within normal limits. Paranasal sinuses and mastoid air cells: Mild mucosal thickening of the right maxillary sinus. Visualized orbits: Orbital contents are intact. IMPRESSION: 1. Acute/subacute CVA involving the right occipital lobe with blooming artifact and high T1 signal arroyo ggestive of blood products which are not apparent on prior CT 01/19/2023. 2. Nonspecific white matter changes, likely secondary to small vessel ischemic disease.
[2023-01-22] MEDS: MAG HYDROX/AL HYDROX/SIMETH 30 ML, diphenhydrAMINE ELIXIR 75 MG, LIDOCAINE VISCOUS 2% 3... PO SCH ×9 (14:31→22:36)
--- NOTE | 2023-01-22 15:04 | P.PN ---
Subjective Progress Note Date: 01/22/23 Patient feels she is about the same. Denies of any new neurological issues. She had MARY today. Objective - Vital Signs Vital signs: Vital Signs Temp 98.5 F 01/22/23 11:55 Pulse 45 L 01/22/23 11:55 Resp 17 01/22/23 11:55 BP 123/62 01/22/23 11:55 Pulse Ox 98 01/22/23 11:55 FiO2 Intake & Output 01/21/23 01/22/23 01/22/23 18:59 06:59 18:59 Intake Total 180 180 340 Balance 180 180 340 Intake: IV 100 Oral 180 180 240 - Exam GENERAL: The patient is lying in bed and is not in acute distress. NEUROLOGICAL: Higher mental function: The patient is awake, alert, oriented to self, place and time. Patient is following commands. No aphasia and no neglect. Cranial nerves: The pupils are round, equal (about 2mm) and reactive to light. Left eye is proptosis and primary gaze is looking downward (per daughter old). Visual hanson is left upper quandrant anopsia. Extraocular movement is minimal looking to left otherwise has significant restiction in looking in any direction. Otherwise normal EOM on right. Facial sensation is normal to touch throughout. The facial strength is normal throughout. Hearing is mildly decreased bilaterally to hand rub. Tongue is midline and moved [id number] without any difficulty. No dysarthria is noted. Shoulder shrug is normal bilaterally. Motor: The strength is 5 over 5 throughout. Normal tone and bulk. Cerebellum: Normal finger to nose heel to ring bilaterally. Sensation: Sensation is normal to touch throughout. Reflexes (right/left): 2+ throughout. Plantars are downgoing bilaterally. Some of the workup in our facility consisted of: Lipid panel as triglyceride 174, cholesterol 194, LDLs 86 and HDL 73 11 A1c is 8.7 TSH is less than 9.005 but the free T4 is 2.08. CT of the head is reported as focal cortical and subcortical hypodensity over right occipital lobe. Subacute ischemia suggested. No acute intracranial hemorrhage or midline shift. Possible acute on chronic maxillary sinusitis. Moderate chronic ethmoid sinus disease. I personally reviewed the CT of head a nd agree with the report. CT angiography of the head and neck was reported as no large vessel intracranial arterial occlusion, significant stenosis or aneurysm changes seen. While for the neck it is reported as moderate atherosclerotic change at the right carotid bifurcation. This results in moderate just over 50% proximal right ICA stenosis. No significant ICA stenosis on the left. 2-D echo was reported as moderately to severely impaired left ventricle systolic function with segmental wall motion abnormality. MARY Reported as: 1. Mildly dilated left atrium was occluded left atrial appendage and no flow noted 2. Moderate impairment of the left ventricle systolic function 3. No shunting across the intra-atrial septum 4. Mild to moderate mitral and mild tricuspid regurgitation 5. Mild aortic regurgitation Carotid duplex is reported as no hemodynamically significant internal carotid artery stenosis on either side. - Labs CBC & Chem 7: 01/22/23 07:38 01/22/23 07:38 Labs: Abnormal Lab Results - Last 24 Hours (Table) 01/21/23 01/21/23 01/21/23 Range/Units 15:37 16:51 20:02 WBC (3.8-10.6) k/uL Neutrophils # (1.3-7.7) k/uL Potassium 5.8 H (3.5-5.1) mmol/L BUN (7-17) mg/dL Creatinine (0.52-1.04) mg/dL POC Glucose (mg/dL) 143 H 267 H (70-110) mg/dL 01/22/23 01/22/23 Range/Units 07:38 07:38 WBC 12.0 H (3.8-10.6) k/uL Neutrophils # 9.3 H (1.3-7.7) k/uL Potassium (3.5-5.1) mmol/L BUN 32 H (7-17) mg/dL Creatinine 1.17 H (0.52-1.04) mg/dL POC Glucose (mg/dL) (70-110) mg/dL Assessment and Plan Assessment: This is a 77-year-old woman who presented because of the director of her neuro customer engagement analyst because of her at hemianopsia that started 3 days prior to presented to our facility. Subacute ischemic stroke over the right occipital (on examination has left upper quandrant anopsia). Unknown exact cause rule out cardioembolic especially with segmental wall motion abnormality on the 2-D echo Systolic heart failure with ejection fraction of 35-40% with segmental wall motion abnormality on the 2-D echo Recent hyperthyroidism with proptosis of left eye and was placed on steroids History of atrial fibrillation on eliquis History of Coronary artery disease status post CABG Hypertension Diabetes mellitus with a hemoglobin A1c of 8.7. Plan: Pending MRI of the brain Patient was resumed on her home dose of eliquis 2.5 mg 1 tablet twice a day. Her ASA was increased from 81 to 325mg daily by the ED team. From neurological perspective, either we go up on Eliquis from 2.5 twice a day to 5 mg twice a day or we discontinue aspirin once her on Plavix since she failed aspirin. She is currently on Lipitor 40 mg daily at bedtime. She had MARY reported as 1. Mildly dilated left atrium was occluded left atrial appendage and no flow noted. No shunting. I spoke with Dr. Hess who performed the MARY and he stated the left atrial appendage is occluded from prior cardiac surgery she had and nothing alarming on MARY. Continue neuro checks On cardiac monitoring PT OT and DINNER COOK are consulted We'll defer the rest of the medical management to primary team For DVT prophylaxis the patient is on eliquis. The plan was discussed with the patient and primary team. UPDATE: MR the brain is reported as acute/subacute CVA involving the right occipital lobe with blooming artifact and high T1 signal suggestive of blood product which are not apparent on prior CT on 01/19/2023. Nonspecific white matter changes, likely secondary due to small vessel ischemic disease. I personally reviewed the MRI angry with the report. I'll get a repeat CT of the head to assess if there is truly any blood products on the repeat CT. Otherwise no additional neurological work-up. Time with Patient: Less than 30
--- NOTE | 2023-01-22 16:00 | P.PN ---
Subjective Progress Note Date: 01/22/23 This is a 77-year-old female with medical history significant for atrial fibrillation, heart failure, hypertension, cholesterol, 3 vessel open heart in 2020, right breast cancer with mastectomy, former smoker and chronic kidney disease. Patient presented to the hospital with 3 day history of left eye visi on changes reported as "seeing squiggles." She does have vision changes to her right eye and has been followed by an communications department chairperson and has been on oral steroids for this. She went for an eye visit with her neuro-opthalmologist due to the vision changes and on examination that was felt she may have had a new acute stroke was recommended to come to the ER for further evaluation. Notably the patient is maintaining on eliquis 2.5 mg twice a day as well as aspirin 81 mg daily has been compliant with her medications. Patient follows with endocrine outpatient for hyperthyroid and recently had changes to her dose of methimazole. Additionally she was recently started on metformin for hyperglycemia due to the prolonged use of oral steroids. She does report some increasing weakness as well as a fever, cough with yellow sputum production. Denies chest pain, denies dizziness/ligheadedness. No vomiting but does report having some nausea and diarrhea as well. Pateint admitted to the [facility] under medicine with neurology consultation. - Brain CT shows focal cortical and subcortical hypodensity right occipital lobe with no prior imaging available for review. There are subacute ischemia sugg ested no acute cranial hemorrhage or midline shift. There is moderate cervical atrophy. Possible acute on chronic sinusitis. CT angiography was done showing moderate atherosclerotic change of the right carotid bifurcation just over 50% proximal right ICA stenosis and no significant ICA stenosis on the left. No large vessel intracranial arterial occlusion, significant stenosis or aneurysmal changes seen. Chest x-ray shows myocardial megaly and COPD with post-CABG changes there is no definite acute process. There is focal density along the palmar region of the posterior left basal lateral be likely results hip or of static changes related to the costovertebral joint. A nonemergent follow-up CT chest recommended to exclude underlying pulmonary nodule. Patient was noted to be bradycardic and an EKG was performed showing sinus bradycardia with a heart rate of 57 possible left atrial enlargement and a left bundle-branch block. Initial blood work reveals white count 10.9, sodium 135, BUN 51, creatinine 1.51, blood glucose 200s, fasting lipid panel is done with elevation in triglycerides. TSH is <0.0005 and Free T4 2.08. 01/21/2023 Patient is evaluated today sitting in the bed she does report improvement in her breathing less short of breath. Her lungs are clear today. Patient was evaluated by cardiology who is recommending patient to undergo a MARY which is scheduled for the morning. Otherwise she will undergo an MRI today. Potassium was elevated at 5.8 today patient did receive a cocktail of an amp of dextrose amp of sodium bicarbonate and 10 units of regular insulin. Patient is also hyperglycemic up in the 300s today noted that her hemoglobin A1c was elevated at 8.7 this was likely due to the high-dose of steroids for the last 4 weeks for her Graves' eye disease. Creatinine has improved down to 1.11. Patient continues on aspirin 325 mg daily as well as eliquis 2.5 mg twice a day. 01/22/2023 Patient is evaluated today sitting in bed she continues to report visual changes the left eye however there is no neurological deficits noted. She underwent MARY today which reveals LV dilated left atrium it was occluded with left atrial appendage and no flow noted. There is moderate impairment of the left ventricle systolic function, there is no shunting across the interatrial septum there is [id number] mitral and mild tricuspid regurgitation and mild aortic regurgitation. Patient underwent MRI today which reveals acute/subacute CVA involving the right occipital lobe with blooming artifact and high T1 signal suggestive of blood products which are not apparent on prior CT. Nonspecific white matter changes likely secondary to small vessel ischemic disease. Await neurology input. Patient does continue on eliquis 25 mg twice a day. Review of Systems Constitutional: Denied any fatigue denied any fever. Cardio vascular: denied any chest pain, palpitations Gastrointestinal: denied any nausea, vomiting, diarrhea Pulmonary: Denied any shortness of breath cough Neurologic denied any new focal deficits. Continues to report visual changes All inpatient medications were reviewed and appropriate changes in these medications as dictated in the interval history and assessment and plan. PHYSICAL EXAMINATION: GENERAL: The patient is alert and oriented x3, not in any acute distress. Well developed, well nourished. HEENT: Pupils are round and equally reacting to light. EOMI. No scleral icterus. No conjunctival pallor. Normocephalic, atraumatic. No pharyngeal erythema. No thyromegaly. CARDIOVASCULAR: S1 and S2 present. No murmurs, rubs, or gallops. PULMONARY: Lungs are clear ABDOMEN: Soft, nontender, nondistended, normoactive bowel sounds. No palpable organomegaly. MUSCULOSKELETAL: No joint swelling or deformity. EXTREMITIES: No cyanosis, clubbing, or pedal edema. NEUROLOGICAL: Gross neurological examination did not reveal any focal deficits. focused exam deferred to neurologist SKIN: No rashes. Assessment Acute ischemic stroke right occipital with left hemianopsia failed outpatient therapy with eliquis 2.5 mg bid/aspirin 81 mg daily Shortness of breath, cough and fever likely an acute bronchitis chest xray shows COPD changes focal density noted in the left base and unable to exclude underlying pulmonary nodule. 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 on oral prednisone outpatient History atrial fibrillation paroxysmal anticoagulated with eliquis Sinus bradycardia Chronic kidney disease Chronic systolic heart failure Hypertension History of 3 vessel coronary artery bypass grafting History of dyslipidemia Steroid-induced hyperglycemia History of myocardial infarction Hx right breast cancer with mastectomy History of bowel resection with colostomy and reversal Former smoker GI prophylaxis DVT prophylaxis No Code Plan Neurology consultation in place recommending f/u brain CT due to the findings of blood product on MRI Recommend to hold losartan and lasix and this time patient appears dehydrated and blood pressure is normotensive A1C elevated 8.7 however this is likely skewed due to the recent use of high dose of oral prednisone over the last 4 weeks, recommend to f/u with an A1C level after completion of steroids patient may require oral diabetic medication on discharge. Neurology recommending Eliquis 5 mg BID vs. Eliquis 2.5 mg BID/Plavix 75 mg daily on discharge since patient failed aspirin therapy. Awaiting cardiology recommendations regarding anticoagulation. PT/OT and speech therapy have been consulted and recommending home on discharge Possible D/C home in the next 24 hours The impression and plan of care has been dictated by Reva Cochran, Nurse Practitioner as directed. Dr. Monie MD I have performed a history and physical examination and medical decision making of this patient, discussed the same with the dictator, and agree with the dictators assessment and plan as written, documented as a scribe. Based on total visit time, I have performed more than 50% of this visit. Objective - Vital Signs Vital signs: Vital Signs Temp 97.8 F 01/22/23 08:10 Pulse 49 L 01/22/23 08:10 Resp 17 01/22/23 08:10 BP 146/65 01/22/23 08:10 Pulse Ox 98 01/22/23 09:43 FiO2 Intake & Output 01/21/23 01/22/23 01/22/23 18:59 06:59 18:59 Intake Total 180 180 Balance 180 180 Intake: Oral 180 180 - Labs CBC & Chem 7: 01/22/23 07:38 01/22/23 07:38 Labs: Abnormal Lab Results - Last 24 Hours (Table) 01/21/23 01/21/23 01/21/23 Range/Units 11:34 15:37 16:51 WBC (3.8-10.6) k/uL Neutrophils # (1.3-7.7) k/uL Potassium 5.8 H (3.5-5.1) mmol/L BUN (7-17) mg/dL Creatinine (0.52-1.04) mg/dL POC Glucose (mg/dL) 349 H 143 H (70-110) mg/dL 01/21/23 01/22/23 01/22/23 Range/Units 20:02 07:38 07:38 WBC 12.0 H (3.8-10.6) k/uL Neutrophils # 9.3 H (1.3-7.7) k/uL Potassium (3.5-5.1) mmol/L BUN 32 H (7-17) mg/dL Creatinine 1.17 H (0.52-1.04) mg/dL POC Glucose (mg/dL) 267 H (70-110) mg/dL Assessment and Plan Time with Patient: Greater than 30
[2023-01-22 16:20] LABS: Glucose,Whole Blood 293 mg/dL (70-110)
[2023-01-22] MEDS: methIMAzole 5 MG TAB PO SCH (17:06)
[2023-01-22] MEDS: SODIUM CHLORIDE 0.9% 1,000 ML IV SCH (17:07)
--- NOTE | 2023-01-22 18:46 | CT ---
EXAMINATION TYPE: CT brain wo con DATE OF EXAM: 01/22/2023 COMPARISON: 01/19/2023 and MRI same day HISTORY: 77-year-old female right occipital bleed on mri TECHNIQUE: Examination was done in axial plane without intravenous contrast. Coronal and sagittal r econstructions performed. CT DLP: 1138.4 mGycm Automated exposure control for dose reduction was used. FINDINGS: Mild bifrontal atrophy. Mild ventriculomegaly with Derick's ratio calculated at 0.35. Focal hypodensity right occipital lobe is redemonstrated. There are scattered calcifications in the carotid siphons. No evidence for acute intracranial hemorrhage, mass effect, midline shift, or extra-axial fluid colle ction. No effacement of basal subarachnoid cisterns. Moderate mucosal thickening ethmoid air cells. Layering fluid right maxillary sinus. Mastoid air cell s well pneumatized. Orbits and globes are intact. IMPRESSION: 1. Evolving right occipital lobe infarct with slight increase in the degree of hypodensity. No interv al acute intracranial hemorrhage. There may be some underlying subacute petechial/gyriform hemorrhage relating to the infarct given the signal changes on MRI. 2. Possible acute on chronic right maxillary sinusitis.
[2023-01-22 20:11] LABS: Glucose,Whole Blood 174 mg/dL (70-110)
[2023-01-22] MEDS: EZETIMIBE 10 MG TAB PO SCH (20:33)
[2023-01-22] MEDS: ATORVASTATIN 40 MG TAB PO SCH (20:33)
[2023-01-23 06:08] LABS: Glucose,Whole Blood 90 mg/dL (70-110)
[2023-01-23] MEDS: INSULIN ASPART (NovoLOG) 100 UNIT/ML VIAL SQ SCH ×4 (06:10→21:15)
[2023-01-23] MEDS: ASPIRIN 325 MG TAB PO SCH (08:57)
[2023-01-23] MEDS: methIMAzole 5 MG TAB PO SCH (08:57)
[2023-01-23] MEDS: PANTOPRAZOLE 40 MG TABLET PO SCH (08:57)
[2023-01-23] MEDS: APIXABAN 2.5 MG TABLET PO SCH ×2 (08:57→21:15)
[2023-01-23] MEDS: ALPRAZolam 1 MG TAB PO SCH ×2 (08:57→21:15)
[2023-01-23] MEDS: predniSONE 20 MG TAB PO SCH (08:58)
[2023-01-23] MEDS: AZITHROMYCIN 500 MG TAB PO SCH (08:58)
[2023-01-23] MEDS: SERTRALINE 100 MG TAB PO SCH (08:58)
[2023-01-23] MEDS: CHOLECALCIFEROL 25 MCG (1000 IU) TABLET PO SCH (08:58)
[2023-01-23] MEDS: MAG HYDROX/AL HYDROX/SIMETH 30 ML, diphenhydrAMINE ELIXIR 75 MG, LIDOCAINE VISCOUS 2% 3... PO SCH ×9 (09:00→21:23)
[2023-01-23] MEDS: METOPROLOL TARTRATE 12.5 MG TAB PO SCH ×2 (09:07→21:15)
[2023-01-23] MEDS: ALBUTEROL NEBULIZED 2.5 MG/3 ML INHALATION SCH ×4 (09:20→21:41)
[2023-01-23] MEDS: BUDESONIDE 0.5 MG/2 ML NEBU INHALATION SCH ×2 (09:20→21:41)
[2023-01-23 11:35] LABS: Glucose,Whole Blood 151 mg/dL (70-110)
--- NOTE | 2023-01-23 12:06 | CT ---
EXAMINATION TYPE: CT brain wo con CT DLP: 1114.4 mGycm, Automated exposure control for dose reduction was used. DATE OF EXAM: 01/23/2023 10:00 AM COMPARISON: CT brain dated 323, 01/19/2023, MR brain 01/22/2023 CLINICAL INDICATION:Female, 77 years old with history of acute neuro deficit, Acute neuro deficit. TECHNIQUE: Brain: Multiple axial CT images of the brain were obtained without IV contrast. Frontal and sagittal reformats reviewed. FINDINGS: Brain: Extra-axial spaces: No abnormal extra-axial fluid collections. Ventricular system: Dilatation in proportion to cerebral atrophy. Cerebral parenchyma: Mild cerebral atrophy. No acute intraparenchymal hemorrhage or mass effect. Red emonstration of focal hypodensity in the right occipital lobe with loss of mendez-white differentiation . Scattered hypoattenuating areas are seen within the white matter. Cerebellum: Unremarkable. Mass effect: No evidence of midline shift. Intracranial vasculature: Atherosclerotic calcifications of the intracranial vessels. Soft tissues: Normal. Calvarium/osseous structures: No depressed skull fracture. Paranasal sinuses and mastoid air cells: The mastoid air cells are clear. Mild mucosal thickening of the left anterior ethmoid sinus. Moderate mucosal thickening of the right maxillary sinus with layeri ng fluid. Visualized orbits: No significant abnormality. IMPRESSION: 1. Similar evolution of right occipital lobe infarct. No evidence for acute intracranial hemorrhage. 2. Nonspecific white matter changes likely due to chronic small vessel ischemic disease. 3. Possible acute and chronic right maxillary sinusitis again.
[2023-01-23] MEDS: SODIUM CHLORIDE 0.9% 1,000 ML IV SCH (12:29)
--- NOTE | 2023-01-23 13:03 | P.PN ---
Subjective Progress Note Date: 01/23/23 History of present illness: This is a 77-year-old female patient of Dr. Hess with past medical history of coronary artery disease with 3 vessel CABG WESLEY to LAD, radial to OM1, VG to PLB in 2020, history of paroxysmal atrial fibrillation on eliquis, cardiomyopathy. We have been asked to evaluate the patient for acute CVA and history of atrial fibrillation. Patient gives history that she is under treatment for Graves' disease affecting the left eye and has been on high-dose steroids. She went for recheck with her information technology auditor/neurologist and was diagnosed with a new stroke affecting the right eye. Patient was admitted to the cardiac stepdown unit and followed by neurology for subacute ischemic stroke over the right occipital. Patient denies having any chest pain at this time. She states sometimes she feels a little twinge of a heartbeat and feels a little shaky and weak with sweats. She had an episode last evening. She denies any symptoms at this time. Obviously her vision is affected. No palpitations. No lightheadedness or dizziness. Patient states that she has been taking all of her medications as instructed. Patient is scheduled for MRI of the brain. EKG sinus rhythm at 57 bpm, left bundle branch block, repeat sinus bradycardia 49 bpm Chest x-ray: Mild cardiomegaly and COPD. No definite acute process. CAT scan of the brain focal cortical and subcortical hypodensity right occipital lobe. Subacute ischemia is suggested. No acute intracranial hemorrhage or midl ine shift. Moderate cerebral atrophy. Possible acute on chronic maxillary sinusitis moderate chronic ethmoid sinus disease. CT angiogram of the head and neck revealed moderate atherosclerotic change at the right carotid bifurcation results in moderate just over 50% proximal right ICA stenosis. No significant ICA stenosis on the left. No large vessel intracranial arterial occlusion, significant stenosis or aneurysmal change. Carotid ultrasound revealed no hemodynamically significant stenosis on either side. Echocardiogram performed on this admission revealed moderate to severe impairment of the left ventricle systolic function with segmental wall motion abnormality, EF 35-40%, mild mitral and tricuspid regurgitation. WBC 11.2, hemoglobin 13.1, platelet count 214. Sodium 136, potassium 5.8, BUN 35 creatinine 1.11. Influenza A, influenza B, RSV, Covid 19 not detected. TSH less than 0.005, free T4 2 0.08. Magnesium 2.4. Troponin negative 1. CK 25. Triglycerides 174, cholesterol 194, LDL 86, HDL 73. Home cardiac medications: Eliquis 2.5 mg twice daily, aspirin 81 mg daily, magali rvastatin 40 mg at bedtime, Zetia 10 mg at bedtime, Lasix 20 mg daily, losartan 25 mg daily, Lopressor 12.5 mg twice daily, K-Dur 20 milliequivalents daily, Tapazole 2.5 mg daily. Echocardiogram performed in the office 05/2022 revealed EF 45-50%, moderate mitral regurgitation, mild tricuspid regurgitation, normal pulmonary artery systolic pressure. Cardiac catheterization history 2020 70% stenosis of the L, 90% of the proximal CX, 60% of the ostial RCA, 60% of the mid RCA status post CABG on 01/25/2021 with WESLEY to LAD, radial to OM1, PEG to PLB. Lexiscan stress test 03/05/2021 revealed EF 38%, large fixed apical defect. 01/23 Patient is seen today in follow-up. She is waiting for an MRI of the brain. She underwent MARY yesterday that revealed mildly dilated left atrium occluded left atrial appendage no flow noted. Moderate impairment of the left ventricle systolic function, no shunting across the intra-atrial septum, mild to moderate mitral and mild tricuspid regurgitation, mild aortic regurgitation. Physical examination: Gen: This is a 77-year-old female. She is a bleeding in her room without difficulty, resting in bed with no acute distress VS: reviewed HEENT: Head is atraumatic, normocephalic. Pupils equal, round. Sclerae is anicteric. NECK: Supple. No JVD. . LUNGS: Clear to auscultation. No wheezes or rhonchi. No intercostal retractions. HEART: Regular rate and rhythm. 2/6 systolic murmur. ABDOMEN: Soft No tenderness. EXTREMITIES: No pedal edema. No calf tenderness. NEUROLOGICAL: Patient is awake, alert and oriented x3. Assessment: Subacute ischemic stroke over the right occipital Graves ophthalmopathy Coronary artery disease status post three-vessel CABG Paroxysmal atrial fibrillation on eliquis Cardiomyopathy Plan: Resume patient's home cardiac medications Recommend that eliquis be increased to 5 mg twice daily if okay with neurology Further recommendations to follow based upon clinical course Follow-up with Dr. Hess in 1-2 weeks. Nurse practitioner note has been reviewed, I agree with documented findings and plan of care. Patient was seen and examined. Objective - Vital Signs Vital signs: Vital Signs Temp 97.8 F 01/23/23 08:15 Pulse 59 L 01/23/23 08:15 Resp 17 01/23/23 08:15 BP 157/65 01/23/23 08:15 Pulse Ox 99 01/23/23 08:15 FiO2 Intake & Output 01/22/23 01/23/23 01/23/23 18:59 06:59 18:59 Intake Total 399 360 510 Balance 399 360 510 Weight 60.2 kg Intake: IV 100 Oral 299 360 510 Other: # Voids 3 2 # Bowel Movements 3 - Labs CBC & Chem 7: 01/22/23 07:38 01/22/23 07:38 Labs: Abnormal Lab Results - Last 24 Hours (Table) 01/22/23 01/22/23 Range/Units 16:17 20:10 POC Glucose (mg/dL) 293 H 174 H (70-110) mg/dL
--- NOTE | 2023-01-23 14:58 | P.PN ---
Subjective Progress Note Date: 01/23/23 This is a 77-year-old female with medical history significant for atrial fibrillation, heart failure, hypertension, cholesterol, 3 vessel open heart in 2020, right breast cancer with mastectomy, former smoker and chronic kidney disease. Patient presented to the hospital with 3 day history of left eye visi on changes reported as "seeing squiggles." She does have vision changes to her right eye and has been followed by an tube tester and has been on oral steroids for this. She went for an eye visit with her neuro-opthalmologist due to the vision changes and on examination that was felt she may have had a new acute stroke was recommended to come to the ER for further evaluation. Notably the patient is maintaining on eliquis 2.5 mg twice a day as well as aspirin 81 mg daily has been compliant with her medications. Patient follows with endocrine outpatient for hyperthyroid and recently had changes to her dose of methimazole. Additionally she was recently started on metformin for hyperglycemia due to the prolonged use of oral steroids. She does report some increasing weakness as well as a fever, cough with yellow sputum production. Denies chest pain, denies dizziness/ligheadedness. No vomiting but does report having some nausea and diarrhea as well. Pateint admitted to the [facility] under medicine with neurology consultation. - Brain CT shows focal cortical and subcortical hypodensity right occipital lobe with no prior imaging available for review. There are subacute ischemia sugg ested no acute cranial hemorrhage or midline shift. There is moderate cervical atrophy. Possible acute on chronic sinusitis. CT angiography was done showing moderate atherosclerotic change of the right carotid bifurcation just over 50% proximal right ICA stenosis and no significant ICA stenosis on the left. No large vessel intracranial arterial occlusion, significant stenosis or aneurysmal changes seen. Chest x-ray shows myocardial megaly and COPD with post-CABG changes there is no definite acute process. There is focal density along the palmar region of the posterior left basal lateral be likely results hip or of static changes related to the costovertebral joint. A nonemergent follow-up CT chest recommended to exclude underlying pulmonary nodule. Patient was noted to be bradycardic and an EKG was performed showing sinus bradycardia with a heart rate of 57 possible left atrial enlargement and a left bundle-branch block. Initial blood work reveals white count 10.9, sodium 135, BUN 51, creatinine 1.51, blood glucose 200s, fasting lipid panel is done with elevation in triglycerides. TSH is <0.0005 and Free T4 2.08. 01/21/2023 Patient is evaluated today sitting in the bed she does report improvement in her breathing less short of breath. Her lungs are clear today. Patient was evaluated by cardiology who is recommending patient to undergo a MARY which is scheduled for the morning. Otherwise she will undergo an MRI today. Potassium was elevated at 5.8 today patient did receive a cocktail of an amp of dextrose amp of sodium bicarbonate and 10 units of regular insulin. Patient is also hyperglycemic up in the 300s today noted that her hemoglobin A1c was elevated at 8.7 this was likely due to the high-dose of steroids for the last 4 weeks for her Graves' eye disease. Creatinine has improved down to 1.11. Patient continues on aspirin 325 mg daily as well as eliquis 2.5 mg twice a day. 01/22/2023 Patient is evaluated today sitting in bed she continues to report visual changes the left eye however there is no neurological deficits noted. She underwent MARY today which reveals LV dilated left atrium it was occluded with left atrial appendage and no flow noted. There is moderate impairment of the left ventricle systolic function, there is no shunting across the interatrial septum there is [id number] mitral and mild tricuspid regurgitation and mild aortic regurgitation. Patient underwent MRI today which reveals acute/subacute CVA involving the right occipital lobe with blooming artifact and high T1 signal suggestive of blood products which are not apparent on prior CT. Nonspecific white matter changes likely secondary to small vessel ischemic disease. Await neurology input. Patient does continue on eliquis 25 mg twice a day. 01/23/2023 Patient is evaluated today sitting up in chair she can continues to report visual changes to the left eye and reports worsening changes today. Patient states that her left eye is also bulging more today than it was prior. Noted that she continues on oral prednisone for this proptosis prescribed outpatient for tube tester. Repeat a TSH and T4 level today. Patient had a follow-up CT revealed evolving right occipital lobe infarct with slight increase in the degree of hypodensity. There is no interval acute intracranial hemorrhage there may be some underlying subacute petechial gyriform hemorrhage related to that artifact given the significant changes in MRI. This possible acute on chronic right maxillary sinusitis. Neurology evaluated this and felt this was stable and there was no acute bleed. Patient then had a repeat computed tomography scan as she reported worsening visual changes in the left eye today, brain CT today shows possible acute on chronic right maxillary sinusitis, sore evolution of her occipital lobe infarct. With no evidence for acute intracranial hemorrhage. Nonspecific white matter changes likely due to chronic small vessel ischemic disease. We are currently pending cardiology recommendations for anticoagulation inpatient. Review of Systems Constitutional: Denied any fatigue denied any fever. Cardio vascular: denied any chest pain, palpitations Gastrointestinal: denied any nausea, vomiting, diarrhea Pulmonary: Denied any shortness of breath cough Neurologic denied any new focal deficits. Continues to report visual changes and increased bulging to the left eye. All inpatient medications were reviewed and appropriate changes in these medica tions as dictated in the interval history and assessment and plan. PHYSICAL EXAMINATION: GENERAL: The patient is alert and oriented x3, not in any acute distress. Well developed, well nourished. HEENT: Pupils are round and equally reacting to light. EOMI. No scleral icterus. No conjunctival pallor. Normocephalic, atraumatic. No pharyngeal erythema. No thyromegaly. Left eye proptosis worsening. CARDIOVASCULAR: S1 and S2 present. No murmurs, rubs, or gallops. PULMONARY: Lungs are clear ABDOMEN: Soft, nontender, nondistended, normoactive bowel sounds. No palpable organomegaly. MUSCULOSKELETAL: No joint swelling or deformity. EXTREMITIES: No cyanosis, clubbing, or pedal edema. NEUROLOGICAL: Gross neurological examination did not reveal any focal deficits. focused exam deferred to neurologist SKIN: No rashes. Assessment Acute ischemic stroke right occipital with left hemianopsia failed outpatient therapy with eliquis 2.5 mg bid/aspirin 81 mg daily Shortness of breath, cough and fever likely an acute bronchitis chest xray shows COPD changes focal density noted in the left base and unable to exclude underlying pulmonary nodule. 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 on oral prednisone outpatient History atrial fibrillation paroxysmal anticoagulated with eliquis Sinus bradycardia Chronic kidney disease Chronic systolic heart failure Hypertension History of 3 vessel coronary artery bypass grafting History of dyslipidemia Steroid-induced hyperglycemia History of myocardial infarction Hx right breast cancer with mastectomy History of bowel resection with colostomy and reversal Former smoker GI prophylaxis DVT prophylaxis No Code Plan Neurology consultation in place patient to undergo follow up brain MRI Repeat TSH/T4 today Recommend to hold losartan and lasix at this time A1C elevated 8.7 however this is likely skewed due to the recent use of high dose of oral prednisone over the last 4 weeks, recommend to f/u with an A1C level after completion of steroids Neurology recommending Eliquis 5 mg BID vs. Eliquis 2.5 mg BID/Plavix 75 mg daily on discharge since patient failed aspirin therapy. Awaiting cardiology recommendations regarding anticoagulation. PT/OT and speech therapy have been consulted and recommending home on discharge Possible D/C home in the next 24 hours The impression and plan of care has been dictated by Reva Cochran, Nurse Practitioner as directed. Dr. Monie MD I have performed a history and physical examination and medical decision making of this patient, discussed the same with the dictator, and agree with the dictators assessment and plan as written, documented as a scribe. Based on total visit time, I have performed more than 50% of this visit. Objective - Vital Signs Vital signs: Vital Signs Temp 97.8 F 01/23/23 08:15 Pulse 59 L 01/23/23 08:15 Resp 17 01/23/23 08:15 BP 157/65 01/23/23 08:15 Pulse Ox 99 01/23/23 08:15 FiO2 Intake & Output 01/22/23 01/23/23 01/23/23 18:59 06:59 18:59 Intake Total 399 360 628 Balance 399 360 628 Weight 60.2 kg Intake: IV 100 Oral 299 360 628 Other: # Voids 3 2 # Bowel Movements 3 - Labs CBC & Chem 7: 01/22/23 07:38 01/22/23 07:38 Labs: Abnormal Lab Results - Last 24 Hours (Table) 01/22/23 01/22/23 01/23/23 Range/Units 16:17 20:10 11:33 POC Glucose (mg/dL) 293 H 174 H 151 H (70-110) mg/dL Assessment and Plan Time with Patient: Less than 30
--- NOTE | 2023-01-23 15:43 | P.PN ---
Subjective Progress Note Date: 01/23/23 I am following-up seeing the patient. She stated today she had episode of numbness of the left distal upper extremity and she noticed it early in morning. Otherwise denies of any other neurological issues and feels about the same. Objective - Vital Signs Vital signs: Vital Signs Temp 97.8 F 01/23/23 08:15 Pulse 59 L 01/23/23 08:15 Resp 17 01/23/23 08:15 BP 157/65 01/23/23 08:15 Pulse Ox 99 01/23/23 08:15 FiO2 Intake & Output 01/22/23 01/23/23 01/23/23 18:59 06:59 18:59 Intake Total 399 360 628 Balance 399 360 628 Weight 60.2 kg Intake: IV 100 Oral 299 360 628 Other: # Voids 3 2 # Bowel Movements 3 - Exam GENERAL: The patient is lying in bed and is not in acute distress. NEUROLOGICAL: Higher mental function: The patient is awake, alert, oriented to self, place and time. Patient is following commands. No aphasia and no neglect. Cranial nerves: The pupils are round, equal (about 2mm) and reactive to light. Left eye is proptosis and primary gaze is looking downward (per daughter old). Visual hanson is left upper quandrant anopsia. Extraocular movement is minimal looking to left otherwise has significant restiction in looking in any direction. Otherwise normal EOM on right. Facial sensation is normal to touch throughout. The facial strength is normal throughout. Hearing is mildly decreased bilaterally to hand rub. Tongue is midline and moved [id number] without any difficulty. No dysarthria is noted. Shoulder shrug is normal bilaterally. Motor: The strength is 5 over 5 throughout. Normal tone and bulk. Cerebellum: Normal finger to nose heel to ring bilaterally. Sensation: Decrease to touch predominately in the distal left upper extremity. Reflexes (right/left): 2+ throughout. Plantars are downgoing bilaterally. Some of the workup in our facility consisted of: Lipid panel as triglyceride 174, cholesterol 194, LDLs 86 and HDL 73 11 A1c is 8.7 TSH is less than 9.005 but the free T4 is 2.08. CT of the head is reported as focal cortical and subcortical hypodensity over right occipital lobe. Subacute ischemia suggested. No acute intracranial hemorrhage or midline shift. Possible acute on chronic maxillary sinusitis. Moderate chronic ethmoid sinus disease. I personally reviewed the CT of head and agree with the report. CT angiography of the head and neck was reported as no large vessel intracranial arterial occlusion, significant stenosis or aneurysm changes seen. While for the neck it is reported as moderate atherosclerotic change at the right carotid bifurcation. This results in moderate just over 50% proximal right ICA stenosis. No significant ICA stenosis on the left. 2-D echo was reported as moderately to severely impaired left ventricle systolic function with segmental wall motion abnormality. MARY Reported as: 1. Mildly dilated left atrium was occluded left atrial appendage and no flow noted 2. Moderate impairment of the left ventricle systolic function 3. No shunting across the intra-atrial septum 4. Mild to moderate mitral and mild tricuspid regurgitation 5. Mild aortic regurgitation Carotid duplex is reported as no hemodynamically significant internal carotid artery stenosis on either side. MR the brain on 01/22/2023 is reported as acute/subacute CVA involving the right occipital with blooming artifact and high T1 signal suggestive of blood product which are not apparent on prior CT of . Nonspecific white matter changes, likely secondary due to small vessel ischemic disease. Repeat CT of the head on 01/22/2023 is reported as evolving right occipital lobe infarct with slight increase in degree of hypodensity. No interval acute intracranial hemorrhage. There may be some underlying subacute petechial/gy riform hemorrhage relating to the infarct given the signal change on MRI. Possible acute on chronic right maxillary sinusitis. Repeat CT of the head on 01/23/2023: It is reported as similar evolution of the right occipital lobe infarct. No evidence for acute intracranial hemorrhage. I personally reviewed the CT and I feel the patient has right occipital infarcts and I feel this suspicious questionable hypodensity over her right cerebellar but it's only seen on one cut. Otherwise could not appreciate any bleeding seen on this CAT scan. - Labs CBC & Chem 7: 01/22/23 07:38 01/22/23 07:38 Labs: Abnormal Lab Results - Last 24 Hours (Table) 01/22/23 01/22/23 01/23/23 Range/Units 16:17 20:10 11:33 POC Glucose (mg/dL) 293 H 174 H 151 H (70-110) mg/dL Assessment and Plan Assessment: This is a 77-year-old woman who presented because of the director of her neuro wireless team member because of her at hemianopsia that started 3 days prior to presented to our facility. New onset left distal hand numbness today early in AM: Rule out acute stroke on top on her recent right occipital stroke. Subacute ischemic stroke over the right occipital (on examination has left upper quandrant anopsia). Unknown exact cause rule out cardioembolic especially with history of A-fib and possible Eliquis was low dose. Has segmental wall motion abnormality on the 2-D echo. Systolic heart failure with ejection fraction of 35-40% with segmental wall motion abnormality on the 2-D echo Recent hyperthyroidism with proptosis of left eye and was placed on steroids History of atrial fibrillation on eliquis History of Coronary artery disease status post CABG Hypertension Diabetes mellitus with a hemoglobin A1c of 8.7. Plan: MRI of the brain: And showed acute on subacute right occipital with the blood products. Patient had repeated too CT heads one yesterday and one today and there is no evidence for any bl bleeding on the CAT scan. I ordered a repeat MRI stats that was ordered earlier in the morning to rule out any acute new stroke because of left hand numbness. Patient was resumed on her home dose of eliquis 2.5 mg 1 tablet twice a day. Her ASA was increased from 81 to 325mg daily by the ED team. From neurological perspective, either we go up on Eliquis from 2.5 twice a day to 5 mg twice a day or we discontinue aspirin once her on Plavix since she failed aspirin. We'll assess what the repeat MRI shows and if it's negative for any acute large stroke then we'll go up on Eliquis from 2.525 mg twice a day and patient is in agreement. Cardiology also discussed this with her. She is currently on Lipitor 40 mg daily at bedtime. She had MARY reported as 1. Mildly dilated left atrium was occluded left atrial appendage and no flow noted. No shunting. I spoke with Dr. Hess who performed the MARY and he stated the left atrial appendage is occluded from prior cardiac surgery she had and nothing alarming on MARY. Continue neuro checks On cardiac monitoring PT OT and HOUSING COORDINATOR are consulted We'll defer the rest of the medical management to primary team For DVT prophylaxis the patient is on eliquis. The plan was discussed with the patient, her daughter and N.P. from primary team. Time with Patient: Less than 30
[2023-01-23 16:21] LABS: Glucose,Whole Blood 325 mg/dL (70-110)
[2023-01-23 16:45] LABS: T4, Free (Free Thyroxine) 1.64 ng/dL (0.78-2.19)
[2023-01-23 19:57] LABS: Glucose,Whole Blood 195 mg/dL (70-110)
[2023-01-23] MEDS: HEPARIN SODIUM,PORCINE 5,000 UNIT/ML 1 ML VIAL SQ SCH (21:15)
[2023-01-23] MEDS: EZETIMIBE 10 MG TAB PO SCH (21:15)
[2023-01-23] MEDS: ATORVASTATIN 40 MG TAB PO SCH (21:15)
[2023-01-23] MEDS: AMITRIPTYLINE HCL 10 MG TAB PO SCH (22:05)
[2023-01-23] MEDS: INSULIN DETEMIR (LEVEMIR) 100 UNIT/ML SYR SQ SCH (22:06)
--- NOTE | 2023-01-23 22:56 | MR ---
EXAMINATION TYPE: MR brain wo con DATE OF EXAM: 01/23/2023 COMPARISON: 01/22/2023 HISTORY: Worsening neuro symptoms, left hand numbness CONTRAST: Performed utilizing 0 mL intravenous Gadavist gadolinium contrast. TECHNIQUE: Multiplanar, multiecho imaging on a 3.0 Katina magnet is performed through the brain. Stud y is performed within 24 hours of arrival to the hospital. The craniovertebral junction is normal. The pituitary is normal. Diffusion-weighted imaging is performed. There is stable uptake through the right occipital lobe. No new acute ischemic changes are evident. Comparison artifact suggestive for some mild underlying hemo rrhage, present previously, stable. There are scattered punctate areas of hyperintensity on T2 and Inversion Recovery weighted sequences which are non-specific but can be related to microvascular ischemic changes. Ventricles and sulci are appropriate for the patient age. There is opacification of the right maxillary sinus. Some minimal mucosal thickening in ethmoid air c ells. Remaining paranasal sinuses and mastoid air cells are clear. IMPRESSIONS: 1. Right occipital lobe infarct which may have some blood products present is stable in appearance fr om the recent comparison study. 2. No new acute intracranial ischemic changes or infarcts.
[2023-01-24 06:13] LABS: Glucose,Whole Blood 155 mg/dL (70-110)
[2023-01-24] MEDS: INSULIN ASPART (NovoLOG) 100 UNIT/ML VIAL SQ SCH ×4 (06:20→20:48)
[2023-01-24] MEDS: BUDESONIDE 0.5 MG/2 ML NEBU INHALATION SCH ×2 (08:06→20:49)
[2023-01-24] MEDS: ALBUTEROL NEBULIZED 2.5 MG/3 ML INHALATION SCH ×4 (08:06→20:49)
[2023-01-24 08:18] LABS: Basophils % (A) 0 %; Eosinophils # (A) 0.1 k/uL (0-0.7); Eosinophils % (A) 1 %; HGB 12.9 gm/dL (11.4-16.0); Hypochromasia Slight; Lymphocytes # (A) 1.9 k/uL (1.0-4.8); Lymphocytes % (A) 20 %; MCH 26.8 pg (25.0-35.0); MCHC 32.3 g/dL (31.0-37.0); MCV 83.1 fL (80.0-100.0); Mean Platelet Volume 7.8; Monocytes # (A) 0.5 k/uL (0-1.0); Monocytes % (A) 5 %; Neutrophils # (A) 6.6 k/uL (1.3-7.7); Neutrophils % (A) 73 %; Platelet Count 176 k/uL (150-450); RBC 4.81 m/uL (3.80-5.40); WBC 9.1 k/uL (3.8-10.6)
[2023-01-24 08:26] LABS: African American GFR (CKD) 64 (>60 ml/min/1.73 sqM); Anion Gap 7 mmol/L; Blood Urea Nitrogen 31 mg/dL (7-17); Calcium 8.8 mg/dL (8.4-10.2); Carbon Dioxide 25 mmol/L (22-30); Chloride 105 mmol/L (98-107); Glucose 148 mg/dL (74-99); Magnesium 2.5 mg/dL (1.6-2.3); Non-African American GFR(CKD) 56 (>60 ml/min/1.73 sqM); Potassium 5.3 mmol/L (3.5-5.1); Sodium 137 mmol/L (137-145)
[2023-01-24] MEDS ORDERED: SODIUM ZIRCONIUM CYCLOSILICATE 10 GM PACKET PO ONE (09:38)
[2023-01-24] MEDS: ALPRAZolam 1 MG TAB PO SCH ×2 (10:46→20:10)
[2023-01-24] MEDS: ASPIRIN 81 MG PO SCH (10:46)
[2023-01-24] MEDS: predniSONE 20 MG TAB PO SCH (10:46)
[2023-01-24] MEDS: methIMAzole 5 MG TAB PO SCH (10:47)
[2023-01-24] MEDS: METOPROLOL TARTRATE 12.5 MG TAB PO SCH ×2 (10:47→20:10)
[2023-01-24] MEDS: CHOLECALCIFEROL 25 MCG (1000 IU) TABLET PO SCH (10:47)
[2023-01-24] MEDS: SERTRALINE 100 MG TAB PO SCH (10:47)
[2023-01-24] MEDS: PANTOPRAZOLE 40 MG TABLET PO SCH (10:47)
[2023-01-24] MEDS: MAG HYDROX/AL HYDROX/SIMETH 30 ML, diphenhydrAMINE ELIXIR 75 MG, LIDOCAINE VISCOUS 2% 3... PO SCH ×9 (10:48→20:13)
[2023-01-24] MEDS ORDERED: APIXABAN 5 MG TAB PO ONE (10:57)
[2023-01-24 11:45] LABS: Glucose,Whole Blood 126 mg/dL (70-110)
--- NOTE | 2023-01-24 11:59 | P.PN ---
Subjective Progress Note Date: 01/24/23 The patient is seen at bedside and she stated her numbness of left distal upper extremity has resolved. Otherwise denies of any new neurological issues. Objective - Vital Signs Vital signs: Vital Signs Temp 97.8 F 01/24/23 10:00 Pulse 55 L 01/24/23 10:00 Resp 16 01/24/23 10:00 BP 151/64 01/24/23 10:00 Pulse Ox 99 01/24/23 10:00 FiO2 Intake & Output 01/23/23 01/24/23 01/24/23 18:59 06:59 18:59 Intake Total 628 240 240 Balance 628 240 240 Intake: Oral 628 240 240 Other: # Voids 4 1 - Exam GENERAL: The patient is lying in bed and is not in acute distress. NEUROLOGICAL: Higher mental function: The patient is awake, alert, oriented to self, place and time. Patient is following commands. No aphasia and no neglect. Cranial nerves: The pupils are round, equal (about 2mm) and reactive to light. Left eye is proptosis and primary gaze is looking downward (per daughter old). Visual hanson is left upper quandrant anopsia. Extraocular movement is minimal looking to left otherwise has significant restiction in looking in any dir ection. Otherwise normal EOM on right. Facial sensation is normal to touch throughout. The facial strength is normal throughout. Hearing is mildly decreased bilaterally to hand rub. Tongue is midline and moved [id number] without any difficulty. No dysarthria is noted. Shoulder shrug is normal bilaterally. Motor: The strength is 5 over 5 throughout. Normal tone and bulk. Cerebellum: Normal finger to nose heel to ring bilaterally. Sensation: Decrease to touch predominately in the distal left upper extremity. Reflexes (right/left): 2+ throughout. Plantars are downgoing bilaterally. Some of the workup in our facility consisted of: Lipid panel as triglyceride 174, cholesterol 194, LDLs 86 and HDL 73 11 A1c is 8.7 TSH is less than 9.005 but the free T4 is 2.08. CT of the head is reported as focal cortical and subcortical hypodensity over right occipital lobe. Subacute ischemia suggested. No acute intracranial hemorrhage or midline shift. Possible acute on chronic maxillary sinusitis. Moderate chronic ethmoid sinus disease. I personally reviewed the CT of head and agree with the report. CT angiography of the head and neck was reported as no large vessel intracranial arterial occlusion, significant stenosis or aneurysm changes seen. While for the neck it is reported as moderate atherosclerotic change at the right carotid bifurcation. This results in moderate just over 50% proximal right ICA stenosis. No significant ICA stenosis on the left. 2-D echo was reported as moderately to severely impaired left ventricle systolic function with segmental wall motion abnormality. MARY Reported as: 1. Mildly dilated left atrium was occluded left atrial appendage and no flow noted 2. Moderate impairment of the left ventricle systolic function 3. No shunting across the intra-atrial septum 4. Mild to moderate mitral and mild tricuspid regurgitation 5. Mild aortic regurgitation Carotid duplex is reported as no hemodynamically significant internal carotid artery stenosis on either side. MR the brain on 01/22/2023 is reported as acute/subacute CVA involving the right occipital with blooming artifact and high T1 signal suggestive of blood product which are not apparent on prior CT of . Nonspecific white matter changes, likely secondary due to small vessel ischemic disease. Repeat CT of the head on 01/22/2023 is reported as evolving right occipital lobe infarct with slight increase in degree of hypodensity. No interval acute intracranial hemorrhage. There may be some underlying subacute petechial/gyriform hemorrhage relating to the infarct given the signal change on MRI. Possible acute on chronic right maxillary sinusitis. Repeat CT of the head on 01/23/2023: It is reported as similar evolution of the right occipital lobe infarct. No evidence for acute intracranial hemorrhage. I personally reviewed the CT and I feel the patient has right occipital infarcts and I feel this suspicious questionable hypodensity over her right cerebellar but it's only seen on one cut. Otherwise could not appreciate any bleeding seen on this CAT scan. MRI of the brain is reported as right occipital lobe infarct which may have some mild blood product present is stable in appearance from the recent that comparison study. No new acute ischemic change or infarct. I personally reviewed the MRI and agree with the report. - Labs CBC & Chem 7: 01/24/23 07:49 01/24/23 07:49 Labs: Abnormal Lab Results - Last 24 Hours (Table) 01/23/23 01/23/23 01/23/23 Range/Units 14:34 16:19 19:56 Potassium (3.5-5.1) mmol/L BUN (7-17) mg/dL Glucose (74-99) mg/dL POC Glucose (mg/dL) 325 H 195 H (70-110) mg/dL Magnesium (1.6-2.3) mg/dL TSH <0.015 L (0.465-4.680) mIU/L 01/24/23 01/24/23 01/24/23 Range/Units 06:12 07:49 11:41 Potassium 5.3 H (3.5-5.1) mmol/L BUN 31 H (7-17) mg/dL Glucose 148 H (74-99) mg/dL POC Glucose (mg/dL) 155 H 126 H (70-110) mg/dL Magnesium 2.5 H (1.6-2.3) mg/dL TSH (0.465-4.680) mIU/L Assessment and Plan Assessment: This is a 77-year-old woman who presented because 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 New onset left distal hand numbness today yesterday in AM: Possible TIA but repeat MRI is stable and no new acute infarct Subacute ischemic stroke over the right occipital (on examination has left upper quandrant anopsia). Unknown exact cause rule out cardioembolic especially with history of A-fib and possible Eliquis was low dose. Has segmental wall motion abnormality on the 2-D echo but MARY is left atrial appendage is occluded and no shunting. Systolic heart failure with ejection fraction of 35-40% with segmental wall motion abnormality on the 2-D echo Recent hyperthyroidism with proptosis of left eye and was placed on steroids History of atrial fibrillation on eliquis History of Coronary artery disease status post CABG Hypertension Diabetes mellitus with a hemoglobin A1c of 8.7. Plan: MRI of the brain: And showed acute on subacute right occipital with the blood pr oducts. Patient had repeated too CT heads one yesterday and one today and there is no evidence for any bl bleeding on the CAT scan. Repeat MRI is stable and no acute or subacute changes. Patient was resumed on her home dose of eliquis 2.5 mg 1 tablet twice a day. Her ASA was increased from 81 to 325mg daily by the ED team. From neurological perspective, either we go up on Eliquis from 2.5 twice a day to 5 mg twice a day or we discontinue aspirin once her on Plavix since she failed aspirin. This was discussed with Cardiology team and will go up on eliquis from 2.5mg to 5mg bid. She is currently on Lipitor 40 mg daily at bedtime. She had MARY reported as 1. Mildly dilated left atrium was occluded left atrial appendage and no flow noted. No shunting. I spoke with Dr. Hess who performed the MARY and he stated the left atrial appendage is occluded from prior cardiac surgery she had nothing alarming on MARY per Dr. Hess. Continue neuro checks On cardiac monitoring PT OT and EMAIL DEPLOYMENT SPECIALIST are consulted We'll defer the rest of the medical management to primary team For DVT prophylaxis the patient is on eliquis. The plan was discussed with the patient, N.P. from primary team and cardiology team. Time with Patient: Less than 30
--- NOTE | 2023-01-24 12:30 | P.PN ---
Subjective Progress Note Date: 01/24/23 History of present illness: This is a 77-year-old female patient of Dr. Hess with past medical history of coronary artery disease with 3 vessel CABG WESLEY to LAD, radial to OM1, VG to PLB in 2020, history of paroxysmal atrial fibrillation on eliquis, cardiomyopathy. We have been asked to evaluate the patient for acute CVA and history of atrial fibrillation. Patient gives history that she is under treatment for Graves' disease affecting the left eye and has been on high-dose steroids. She went for recheck with her barytes grinder/neurologist and was diagnosed with a new stroke affecting the right eye. Patient was admitted to the cardiac stepdown unit and followed by neurology for subacute ischemic stroke over the right occipital. Patient denies having any chest pain at this time. She states sometimes she feels a little twinge of a heartbeat and feels a little shaky and weak with sweats. She had an episode last evening. She denies any symptoms at this time. Obviously her vision is affected. No palpitations. No lightheadedness or dizziness. Patient states that she has been taking all of her medications as instructed. Patient is scheduled for MRI of the brain. EKG sinus rhythm at 57 bpm, left bundle branch block, repeat sinus bradycardia 49 bpm Chest x-ray: Mild cardiomegaly and COPD. No definite acute process. CAT scan of the brain focal cortical and subcortical hypodensity right occipital lobe. Subacute ischemia is suggested. No acute intracranial hemorrhage or midl ine shift. Moderate cerebral atrophy. Possible acute on chronic maxillary sinusitis moderate chronic ethmoid sinus disease. CT angiogram of the head and neck revealed moderate atherosclerotic change at the right carotid bifurcation results in moderate just over 50% proximal right ICA stenosis. No significant ICA stenosis on the left. No large vessel intracranial arterial occlusion, significant stenosis or aneurysmal change. Carotid ultrasound revealed no hemodynamically significant stenosis on either side. Echocardiogram performed on this admission revealed moderate to severe impairment of the left ventricle systolic function with segmental wall motion abnormality, EF 35-40%, mild mitral and tricuspid regurgitation. WBC 11.2, hemoglobin 13.1, platelet count 214. Sodium 136, potassium 5.8, BUN 35 creatinine 1.11. Influenza A, influenza B, RSV, Covid 19 not detected. TSH less than 0.005, free T4 2 0.08. Magnesium 2.4. Troponin negative 1. CK 25. Triglycerides 174, cholesterol 194, LDL 86, HDL 73. Home cardiac medications: Eliquis 2.5 mg twice daily, aspirin 81 mg daily, magali rvastatin 40 mg at bedtime, Zetia 10 mg at bedtime, Lasix 20 mg daily, losartan 25 mg daily, Lopressor 12.5 mg twice daily, K-Dur 20 milliequivalents daily, Tapazole 2.5 mg daily. Echocardiogram performed in the office 05/2022 revealed EF 45-50%, moderate mitral regurgitation, mild tricuspid regurgitation, normal pulmonary artery systolic pressure. Cardiac catheterization history 2020 70% stenosis of the L, 90% of the proximal CX, 60% of the ostial RCA, 60% of the mid RCA status post CABG on 01/25/2021 with WESLEY to LAD, radial to OM1, PEG to PLB. Lexiscan stress test 03/05/2021 revealed EF 38%, large fixed apical defect. 01/23 Patient is seen today in follow-up. She is waiting for an MRI of the brain. She underwent MARY yesterday that revealed mildly dilated left atrium occluded left atrial appendage no flow noted. Moderate impairment of the left ventricle systolic function, no shunting across the intra-atrial septum, mild to moderate mitral and mild tricuspid regurgitation, mild aortic regurgitation. 01/24 Patient underwent an repeat MRI of which was unchanged from the day before and managed by Dr. Cole. Dr. Cole has recommended increasing eliquis 5 mg which has been done. Patient denies any new concerns. No palpitations, no chest pain. Heart rate is running in the 50s, telemetry is a sinus bradycardia. Potassium 5.3, BUN 31 and creatinine 1. Physical examination: Gen: This is a 77-year-old female. She is a bleeding in her room without difficulty, resting in bed with no acute distress VS: reviewed HEENT: Head is atraumatic, normocephalic. Pupils equal, round. Sclerae is anicteric. NECK: Supple. No JVD. . LUNGS: Clear to auscultation. No wheezes or rhonchi. No intercostal retractions. HEART: Regular rate and rhythm. 2/6 systolic murmur. ABDOMEN: Soft No tenderness. EXTREMITIES: No pedal edema. No calf tenderness. NEUROLOGICAL: Patient is awake, alert and oriented x3. Assessment: Subacute ischemic stroke over the right occipital Graves ophthalmopathy Coronary artery disease status post three-vessel CABG Paroxysmal atrial fibrillation on eliquis Cardiomyopathy Plan: Resume patient's home cardiac medications Increased eliquis 5 mg twice daily Patient is cleared from cardiology for discharge whenever cleared by neurology and attending. Follow-up with Dr. Hess in 1-2 weeks. Nurse practitioner note has been reviewed, I agree with documented findings and plan of care. Patient was seen and examined. Objective - Vital Signs Vital signs: Vital Signs Temp 97.8 F 01/24/23 10:00 Pulse 55 L 01/24/23 10:00 Resp 16 01/24/23 10:00 BP 151/64 01/24/23 10:00 Pulse Ox 99 01/24/23 10:00 FiO2 Intake & Output 01/23/23 01/24/23 01/24/23 18:59 06:59 18:59 Intake Total 628 240 240 Balance 628 240 240 Intake: Oral 628 240 240 Other: # Voids 4 1 - Labs CBC & Chem 7: 01/24/23 07:49 01/24/23 07:49 Labs: Abnormal Lab Results - Last 24 Hours (Table) 01/23/23 01/23/23 01/23/23 Range/Units 14:34 16:19 19:56 Potassium (3.5-5.1) mmol/L BUN (7-17) mg/dL Glucose (74-99) mg/dL POC Glucose (mg/dL) 325 H 195 H (70-110) mg/dL Magnesium (1.6-2.3) mg/dL TSH <0.015 L (0.465-4.680) mIU/L 01/24/23 01/24/23 01/24/23 Range/Units 06:12 07:49 11:41 Potassium 5.3 H (3.5-5.1) mmol/L BUN 31 H (7-17) mg/dL Glucose 148 H (74-99) mg/dL POC Glucose (mg/dL) 155 H 126 H (70-110) mg/dL Magnesium 2.5 H (1.6-2.3) mg/dL TSH (0.465-4.680) mIU/L
--- NOTE | 2023-01-24 13:19 | P.PN ---
Subjective Progress Note Date: 01/24/23 This is a 77-year-old female with medical history significant for atrial fibrillation, heart failure, hypertension, cholesterol, 3 vessel open heart in 2020, right breast cancer with mastectomy, former smoker and chronic kidney disease. Patient presented to the hospital with 3 day history of left eye visi on changes reported as "seeing squiggles." She does have vision changes to her right eye and has been followed by an poultry husbandry teacher and has been on oral steroids for this. She went for an eye visit with her neuro-opthalmologist due to the vision changes and on examination that was felt she may have had a new acute stroke was recommended to come to the ER for further evaluation. Notably the patient is maintaining on eliquis 2.5 mg twice a day as well as aspirin 81 mg daily has been compliant with her medications. Patient follows with endocrine outpatient for hyperthyroid and recently had changes to her dose of methimazole. Additionally she was recently started on metformin for hyperglycemia due to the prolonged use of oral steroids. She does report some increasing weakness as well as a fever, cough with yellow sputum production. Denies chest pain, denies dizziness/ligheadedness. No vomiting but does report having some nausea and diarrhea as well. Pateint admitted to the [facility] under medicine with neurology consultation. - Brain CT shows focal cortical and subcortical hypodensity right occipital lobe with no prior imaging available for review. There are subacute ischemia sugg ested no acute cranial hemorrhage or midline shift. There is moderate cervical atrophy. Possible acute on chronic sinusitis. CT angiography was done showing moderate atherosclerotic change of the right carotid bifurcation just over 50% proximal right ICA stenosis and no significant ICA stenosis on the left. No large vessel intracranial arterial occlusion, significant stenosis or aneurysmal changes seen. Chest x-ray shows myocardial megaly and COPD with post-CABG changes there is no definite acute process. There is focal density along the palmar region of the posterior left basal lateral be likely results hip or of static changes related to the costovertebral joint. A nonemergent follow-up CT chest recommended to exclude underlying pulmonary nodule. Patient was noted to be bradycardic and an EKG was performed showing sinus bradycardia with a heart rate of 57 possible left atrial enlargement and a left bundle-branch block. Initial blood work reveals white count 10.9, sodium 135, BUN 51, creatinine 1.51, blood glucose 200s, fasting lipid panel is done with elevation in triglycerides. TSH is <0.0005 and Free T4 2.08. 01/21/2023 Patient is evaluated today sitting in the bed she does report improvement in her breathing less short of breath. Her lungs are clear today. Patient was evaluated by cardiology who is recommending patient to undergo a MARY which is scheduled for the morning. Otherwise she will undergo an MRI today. Potassium was elevated at 5.8 today patient did receive a cocktail of an amp of dextrose amp of sodium bicarbonate and 10 units of regular insulin. Patient is also hyperglycemic up in the 300s today noted that her hemoglobin A1c was elevated at 8.7 this was likely due to the high-dose of steroids for the last 4 weeks for her Graves' eye disease. Creatinine has improved down to 1.11. Patient continues on aspirin 325 mg daily as well as eliquis 2.5 mg twice a day. 01/22/2023 Patient is evaluated today sitting in bed she continues to report visual changes the left eye however there is no neurological deficits noted. She underwent MARY today which reveals LV dilated left atrium it was occluded with left atrial appendage and no flow noted. There is moderate impairment of the left ventricle systolic function, there is no shunting across the interatrial septum there is [id number] mitral and mild tricuspid regurgitation and mild aortic regurgitation. Patient underwent MRI today which reveals acute/subacute CVA involving the right occipital lobe with blooming artifact and high T1 signal suggestive of blood products which are not apparent on prior CT. Nonspecific white matter changes likely secondary to small vessel ischemic disease. Await neurology input. Patient does continue on eliquis 25 mg twice a day. 01/23/2023 Patient is evaluated today sitting up in chair she can continues to report visual changes to the left eye and reports worsening changes today. Patient states that her left eye is also bulging more today than it was prior. Noted that she continues on oral prednisone for this proptosis prescribed outpatient for poultry husbandry teacher. Repeat a TSH and T4 level today. Patient had a follow-up CT revealed evolving right occipital lobe infarct with slight increase in the degree of hypodensity. There is no interval acute intracranial hemorrhage there may be some underlying subacute petechial gyriform hemorrhage related to that artifact given the significant changes in MRI. This possible acute on chronic right maxillary sinusitis. Neurology evaluated this and felt this was stable and there was no acute bleed. Patient then had a repeat computed tomography scan as she reported worsening visual changes in the left eye today, brain CT today shows possible acute on chronic right maxillary sinusitis, sore evolution of her occipital lobe infarct. With no evidence for acute intracranial hemorrhage. Nonspecific white matter changes likely due to chronic small vessel ischemic disease. We are currently pending cardiology recommendations for anticoagulation inpatient. 01/24/2023 Patient's temperature today reporting stable neurological deficits she does complain teacher reportedly patient to the left eye. This proptosis appears stable patient remains on oral steroids on her thyroid function is actually improved her T4 is now normal and TSH is less than 0.15. Patient does report inability to taste and smell and sinus congestion we will recommend treating patient for an acute sinus infection. Repeat MRI was reviewed by neurology and felt stable, report readings were right occipital lobe infarct which may have some blood products has a stable appearance from the recent comparison study. There is no new acute intracranial ischemic changes or infarcts. Eliquis will be increased to 5 mg BID. Today her sodium is normal 137, potassium 5.3, BUN 31, creatinine 1.00, blood glucose 120s magnesium 2.5. Review of Systems Constitutional: Denied any fatigue denied any fever. Cardio vascular: denied any chest pain, palpitations Gastrointestinal: denied any nausea, vomiting, diarrhea Pulmonary: Denied any shortness of breath cough Neurologic denied any new focal deficits. Continues to report visual changes and increased bulging to the left eye. All inpatient medications were reviewed and appropriate changes in these medications as dictated in the interval history and assessment and plan. PHYSICAL EXAMINATION: GENERAL: The patient is alert and oriented x3, not in any acute distress. Well developed, well nourished. HEENT: Pupils are round and equally reacting to light. EOMI. No scleral icterus. No conjunctival pallor. Normocephalic, atraumatic. No pharyngeal erythema. No thyromegaly. Left eye proptosis worsening. with clear water drainage CARDIOVASCULAR: S1 and S2 present. No murmurs, rubs, or gallops. PULMONARY: Lungs are clear ABDOMEN: Soft, nontender, nondistended, normoactive bowel sounds. No palpable organomegaly. MUSCULOSKELETAL: No joint swelling or deformity. EXTREMITIES: No cyanosis, clubbing, or pedal edema. NEUROLOGICAL: Gross neurological examination did not reveal any focal deficits. focused exam deferred to neurologist SKIN: No rashes. Assessment Acute ischemic stroke right occipital with left hemianopsia failed outpatient therapy with eliquis 2.5 mg bid/aspirin 81 mg daily Shortness of breath, cough and fever likely an acute bronchitis chest xray shows COPD changes focal density noted in the left base and unable to exclude underly ing pulmonary nodule. Acute sinusitis with congestion and drainage Hyperthyroidism on methimazole with improved thyroid function. Left eye proptosis due to Graves' opthalmopathy on oral prednisone outpatient History atrial fibrillation paroxysmal anticoagulated with eliquis Sinus bradycardia Chronic kidney disease Chronic systolic heart failure Hypertension History of 3 vessel coronary artery bypass grafting History of dyslipidemia Steroid-induced hyperglycemia History of myocardial infarction Hx right breast cancer with mastectomy History of bowel resection with colostomy and reversal Former smoker GI prophylaxis DVT prophylaxis No Code Plan Follow MRI reviewed by neurology felt stable and recommending monitor patient overnight. Eliquis has been increased to 5 mg BID. Continues on statin therapy and aspirin 81 mg daily. Recommend to hold losartan and lasix at this time A1C elevated 8.7 however this is likely skewed due to the recent use of high dose of oral prednisone over the last 4 weeks, recommend to f/u with an A1C level after completion of steroids Prednisone increased to 60 mg daily and patient offered flonase and started on augmentin for acute sinusitis. Pending procalcitonin level. Possible DC home in the next 24 hours. The impression and plan of care has been dictated by Reva Cochran, Nurse Practitioner as directed. Dr. Monie MD I have performed a history and physical examination and medical decision making of this patient, discussed the same with the dictator, and agree with the dictators assessment and plan as written, documented as a scribe. Based on total visit time, I have performed more than 50% of this visit. Objective - Vital Signs Vital signs: Vital Signs Temp 98.3 F 01/23/23 20:00 Pulse 53 L 01/24/23 04:00 Resp 18 01/24/23 04:00 BP 155/77 01/24/23 04:00 Pulse Ox 96 01/24/23 07:59 FiO2 Intake & Output 01/23/23 01/24/23 01/24/23 18:59 06:59 18:59 Intake Total 628 240 240 Balance 628 240 240 Intake: Oral 628 240 240 Other: # Voids 4 1 - Labs CBC & Chem 7: 01/24/23 07:49 01/24/23 07:49 Labs: Abnormal Lab Results - Last 24 Hours (Table) 01/23/23 01/23/23 01/23/23 Range/Units 11:33 14:34 16:19 Potassium (3.5-5.1) mmol/L BUN (7-17) mg/dL Glucose (74-99) mg/dL POC Glucose (mg/dL) 151 H 325 H (70-110) mg/dL Magnesium (1.6-2.3) mg/dL TSH <0.015 L (0.465-4.680) mIU/L 01/23/23 01/24/23 01/24/23 Range/Units 19:56 06:12 07:49 Potassium 5.3 H (3.5-5.1) mmol/L BUN 31 H (7-17) mg/dL Glucose 148 H (74-99) mg/dL POC Glucose (mg/dL) 195 H 155 H (70-110) mg/dL Magnesium 2.5 H (1.6-2.3) mg/dL TSH (0.465-4.680) mIU/L Assessment and Plan Time with Patient: Less than 30
[2023-01-24] MEDS: predniSONE 20 MG TAB PO STA ×2 (16:19→21:34)
[2023-01-24] MEDS: AMOXIC-POT CLAV 875-125MG 1 EACH TAB PO SCH ×2 (16:19→20:12)
[2023-01-24] MEDS: FLUTICASONE 50MCG/SPRAY NASAL 16GM EA NOSTRIL SCH (16:20)
[2023-01-24] MEDS: LORATADINE 10 MG TAB PO SCH ×2 (16:20→19:03)
[2023-01-24] MEDS ORDERED: methylPREDNISolone SOD SUCCI 40 MG/ML 1 ML VIAL IV STA (16:49)
[2023-01-24 16:52] LABS: Glucose,Whole Blood 271 mg/dL (70-110)
[2023-01-24 16:52] LABS: Glucose,Whole Blood 280 mg/dL (70-110)
[2023-01-24] MEDS: SODIUM CHLORIDE 0.9% 1,000 ML IV SCH (16:55)
[2023-01-24] MEDS: EZETIMIBE 10 MG TAB PO SCH (20:11)
[2023-01-24] MEDS: APIXABAN 5 MG TAB PO SCH (20:11)
[2023-01-24] MEDS: ATORVASTATIN 40 MG TAB PO SCH (20:11)
[2023-01-24 20:42] LABS: Glucose,Whole Blood 261 mg/dL (70-110)
[2023-01-24] MEDS: INSULIN DETEMIR (LEVEMIR) 100 UNIT/ML SYR SQ SCH (20:48)
[2023-01-24] MEDS: AMITRIPTYLINE HCL 10 MG TAB PO SCH (20:48)
[2023-01-24] MEDS: APIXABAN 2.5 MG TABLET PO SCH (21:34)
[2023-01-24] MEDS: HEPARIN SODIUM,PORCINE 5,000 UNIT/ML 1 ML VIAL SQ SCH (21:34)
[2023-01-24 23:36] VITALS: RESP 18
[2023-01-25 06:22] LABS: Glucose,Whole Blood 121 mg/dL (70-110)
[2023-01-25] MEDS: INSULIN ASPART (NovoLOG) 100 UNIT/ML VIAL SQ SCH ×3 (06:22→16:43)
[2023-01-25] MEDS: ALBUTEROL NEBULIZED 2.5 MG/3 ML INHALATION SCH ×3 (08:56→15:42)
[2023-01-25] MEDS: BUDESONIDE 0.5 MG/2 ML NEBU INHALATION SCH (08:56)
[2023-01-25] MEDS ORDERED: predniSONE 20 MG TAB PO SCH (09:00)
[2023-01-25] MEDS: APIXABAN 5 MG TAB PO SCH (09:31)
[2023-01-25] MEDS: METOPROLOL TARTRATE 12.5 MG TAB PO SCH (09:31)
[2023-01-25] MEDS: SERTRALINE 100 MG TAB PO SCH (09:31)
[2023-01-25] MEDS: LORATADINE 10 MG TAB PO SCH (09:31)
[2023-01-25] MEDS: ALPRAZolam 1 MG TAB PO SCH (09:31)
[2023-01-25] MEDS: ASPIRIN 81 MG PO SCH (09:31)
[2023-01-25] MEDS: AMOXIC-POT CLAV 875-125MG 1 EACH TAB PO SCH (09:31)
[2023-01-25] MEDS: PANTOPRAZOLE 40 MG TABLET PO SCH (09:31)
[2023-01-25] MEDS: CHOLECALCIFEROL 25 MCG (1000 IU) TABLET PO SCH (09:32)
[2023-01-25] MEDS: FLUTICASONE 50MCG/SPRAY NASAL 16GM EA NOSTRIL SCH (09:32)
[2023-01-25] MEDS: methIMAzole 5 MG TAB PO SCH (09:33)
[2023-01-25] MEDS: MAG HYDROX/AL HYDROX/SIMETH 30 ML, diphenhydrAMINE ELIXIR 75 MG, LIDOCAINE VISCOUS 2% 3... PO SCH ×6 (09:34→15:13)
[2023-01-25 09:55] LABS: Basophils % (A) 0 %; Eosinophils # (A) 0.1 k/uL (0-0.7); Eosinophils % (A) 1 %; HCT 39.7 % (34.0-46.0); HGB 13.7 gm/dL (11.4-16.0); Hypochromasia Slight; Lymphocytes # (A) 1.5 k/uL (1.0-4.8); Lymphocytes % (A) 16 %; MCH 28.5 pg (25.0-35.0); MCHC 34.4 g/dL (31.0-37.0); MCV 82.7 fL (80.0-100.0); Mean Platelet Volume 7.7; Monocytes # (A) 0.5 k/uL (0-1.0); Monocytes % (A) 6 %; Neutrophils # (A) 7.4 k/uL (1.3-7.7); Neutrophils % (A) 77 %; Platelet Count 207 k/uL (150-450); RBC 4.79 m/uL (3.80-5.40); RDW 13.7 % (11.5-15.5); WBC 9.7 k/uL (3.8-10.6)
[2023-01-25 10:22] LABS: African American GFR (CKD) 56 (>60 ml/min/1.73 sqM); Anion Gap 11 mmol/L; Blood Urea Nitrogen 29 mg/dL (7-17); Calcium 9.2 mg/dL (8.4-10.2); Carbon Dioxide 20 mmol/L (22-30); Chloride 105 mmol/L (98-107); Glucose 141 mg/dL (74-99); Non-African American GFR(CKD) 49 (>60 ml/min/1.73 sqM); Potassium 5.2 mmol/L (3.5-5.1); Sodium 136 mmol/L (137-145)
[2023-01-25] MEDS: SODIUM CHLORIDE 0.9% 1,000 ML IV SCH (10:58)
[2023-01-25 11:04] VITALS: TEMP 97.5
[2023-01-25 11:58] LABS: Glucose,Whole Blood 150 mg/dL (70-110)
[2023-01-25 12:07] VITALS: BP 148/63
--- NOTE | 2023-01-25 12:53 | P.PN ---
Subjective Progress Note Date: 01/25/23 History of present illness: This is a 77-year-old female patient of Dr. Hess with past medical history of coronary artery disease with 3 vessel CABG WESLEY to LAD, radial to OM1, VG to PLB in 2020, history of paroxysmal atrial fibrillation on eliquis, cardiomyopathy. We have been asked to evaluate the patient for acute CVA and history of atrial fibrillation. Patient gives history that she is under treatment for Graves' disease affecting the left eye and has been on high-dose steroids. She went for recheck with her banquet kitchen supervisor/neurologist and was diagnosed with a new stroke affecting the right eye. Patient was admitted to the cardiac stepdown unit and followed by neurology for subacute ischemic stroke over the right occipital. Patient denies having any chest pain at this time. She states sometimes she feels a little twinge of a heartbeat and feels a little shaky and weak with sweats. She had an episode last evening. She denies any symptoms at this time. Obviously her vision is affected. No palpitations. No lightheadedness or dizziness. Patient states that she has been taking all of her medications as instructed. Patient is scheduled for MRI of the brain. EKG sinus rhythm at 57 bpm, left bundle branch block, repeat sinus bradycardia 49 bpm Chest x-ray: Mild cardiomegaly and COPD. No definite acute process. CAT scan of the brain focal cortical and subcortical hypodensity right occipital lobe. Subacute ischemia is suggested. No acute intracranial hemorrhage or midl ine shift. Moderate cerebral atrophy. Possible acute on chronic maxillary sinusitis moderate chronic ethmoid sinus disease. CT angiogram of the head and neck revealed moderate atherosclerotic change at the right carotid bifurcation results in moderate just over 50% proximal right ICA stenosis. No significant ICA stenosis on the left. No large vessel intracranial arterial occlusion, significant stenosis or aneurysmal change. Carotid ultrasound revealed no hemodynamically significant stenosis on either side. Echocardiogram performed on this admission revealed moderate to severe impairment of the left ventricle systolic function with segmental wall motion abnormality, EF 35-40%, mild mitral and tricuspid regurgitation. WBC 11.2, hemoglobin 13.1, platelet count 214. Sodium 136, potassium 5.8, BUN 35 creatinine 1.11. Influenza A, influenza B, RSV, Covid 19 not detected. TSH less than 0.005, free T4 2 0.08. Magnesium 2.4. Troponin negative 1. CK 25. Triglycerides 174, cholesterol 194, LDL 86, HDL 73. Home cardiac medications: Eliquis 2.5 mg twice daily, aspirin 81 mg daily, magali rvastatin 40 mg at bedtime, Zetia 10 mg at bedtime, Lasix 20 mg daily, losartan 25 mg daily, Lopressor 12.5 mg twice daily, K-Dur 20 milliequivalents daily, Tapazole 2.5 mg daily. Echocardiogram performed in the office 05/2022 revealed EF 45-50%, moderate mitral regurgitation, mild tricuspid regurgitation, normal pulmonary artery systolic pressure. Cardiac catheterization history 2020 70% stenosis of the L, 90% of the proximal CX, 60% of the ostial RCA, 60% of the mid RCA status post CABG on 01/25/2021 with WESLEY to LAD, radial to OM1, PEG to PLB. Lexiscan stress test 03/05/2021 revealed EF 38%, large fixed apical defect. 01/23 Patient is seen today in follow-up. She is waiting for an MRI of the brain. She underwent MARY yesterday that revealed mildly dilated left atrium occluded left atrial appendage no flow noted. Moderate impairment of the left ventricle systolic function, no shunting across the intra-atrial septum, mild to moderate mitral and mild tricuspid regurgitation, mild aortic regurgitation. 01/24 Patient underwent an repeat MRI of which was unchanged from the day before and managed by Dr. Cole. Dr. Cole has recommended increasing eliquis 5 mg which has been done. Patient denies any new concerns. No palpitations, no chest pain. Heart rate is running in the 50s, telemetry is a sinus bradycardia. Potassium 5.3, BUN 31 and creatinine 1. 8/6 No new concerns from the patient. She is scheduled for discharge home later today. She has been increased on eliquis to 5 mg twice daily which is recommended for discharge. Heart rate has been in the 50s and 60s, blood pr essure 148/63, pulse ox 99% on room air. Physical examination: Gen: This is a 77-year-old female. She is a bleeding in her room without difficulty, resting in bed with no acute distress VS: reviewed HEENT: Head is atraumatic, normocephalic. Pupils equal, round. Sclerae is anicteric. NECK: Supple. No JVD. . LUNGS: Clear to auscultation. No wheezes or rhonchi. No intercostal retractio ns. HEART: Regular rate and rhythm. 2/6 systolic murmur. ABDOMEN: Soft No tenderness. EXTREMITIES: No pedal edema. No calf tenderness. NEUROLOGICAL: Patient is awake, alert and oriented x3. Assessment: Subacute ischemic stroke over the right occipital Graves ophthalmopathy Coronary artery disease status post three-vessel CABG Paroxysmal atrial fibrillation on eliquis Cardiomyopathy Plan: Resume patient's home cardiac medications Continue increased dose of eliquis 5 mg twice daily Patient is cleared from cardiology for discharge. Follow-up with Dr. Hess in 1-2 weeks. Nurse practitioner note has been reviewed, I agree with documented findings and plan of care. Patient was seen and examined. Objective - Vital Signs Vital signs: Vital Signs Temp 97.5 F L 01/25/23 08:00 Pulse 60 01/25/23 08:00 Resp 18 01/25/23 08:00 BP 153/55 01/25/23 08:00 Pulse Ox 97 01/25/23 08:55 FiO2 Intake & Output 01/24/23 01/25/23 01/25/23 18:59 06:59 18:59 Intake Total 840 10 240 Balance 840 10 240 Intake: Intake, IV Titration 10 Amount Sodium Chloride 0.9% 1, 10 000 ml @ 20 mls/hr IV . Q24H JAZ Rx#:[id number] Oral 840 240 Other: # Voids 2 - Labs CBC & Chem 7: 01/25/23 09:15 01/25/23 09:15 Labs: Abnormal Lab Results - Last 24 Hours (Table) 01/24/23 01/24/23 01/24/23 Range/Units 11:41 16:50 16:51 Sodium (137-145) mmol/L Potassium (3.5-5.1) mmol/L Carbon Dioxide (22-30) mmol/L BUN (7-17) mg/dL Creatinine (0.52-1.04) mg/dL Glucose (74-99) mg/dL POC Glucose (mg/dL) 126 H 280 H 271 H (70-110) mg/dL 01/24/23 01/25/23 01/25/23 Range/Units 20:40 06:20 09:15 Sodium 136 L (137-145) mmol/L Potassium 5.2 H (3.5-5.1) mmol/L Carbon Dioxide 20 L (22-30) mmol/L BUN 29 H (7-17) mg/dL Creatinine 1.11 H (0.52-1.04) mg/dL Glucose 141 H (74-99) mg/dL POC Glucose (mg/dL) 261 H 121 H (70-110) mg/dL
--- NOTE | 2023-01-25 13:20 | P.PN ---
Subjective Progress Note Date: 01/25/23 I am following-up seeing the patient and she feels she is doing well and denies of any new neurological issues. Objective - Vital Signs Vital signs: Vital Signs Temp 97.5 F L 01/25/23 08:00 Pulse 51 L 01/25/23 12:00 Resp 18 01/25/23 08:00 BP 148/63 01/25/23 12:00 Pulse Ox 99 01/25/23 12:00 FiO2 Intake & Output 01/24/23 01/25/23 01/25/23 18:59 06:59 18:59 Intake Total 840 10 240 Balance 840 10 240 Intake: Intake, IV Titration 10 Amount Sodium Chloride 0.9% 1, 10 000 ml @ 20 mls/hr IV . Q24H JAZ Rx#:[id number] Oral 840 240 Other: # Voids 2 - Exam GENERAL: The patient is sitting in a recliner chair having her lunch and is not in acute distress. NEUROLOGICAL: Higher mental function: The patient is awake, alert, oriented to self, place and time. Patient is following commands. No aphasia and no neglect. Cranial nerves: The pupils are round, equal (about 2mm) and reactive to light. Left eye is proptosis and primary gaze is looking downward (per daughter old). Visual hanson is left upper quandrant anopsia. Extraocular movement is minimal looking to left otherwise has significant restiction in looking in any direction. Otherwise normal EOM on right. Facial sensation is normal to touch throughout. The facial strength is normal throughout. Hearing is mildly decreased bilaterally to hand rub. Tongue is midline and moved [id number] without any difficulty. No dysarthria is noted. Shoulder shrug is normal bilaterally. Motor: The strength is 5 over 5 throughout. Normal tone and bulk. Cerebellum: Normal finger to nose heel to ring bilaterally. Sensation: Decrease to touch predominately in the distal left upper extremity. Reflexes (right/left): 2+ throughout. Plantars are downgoing bilaterally. Some of the workup in our facility consisted of: Lipid panel as triglyceride 174, cholesterol 194, LDLs 86 and HDL 73 11 A1c is 8.7 TSH is less than 9.005 but the free T4 is 2.08. CT of the head is reported as focal cortical and subcortical hypodensity over right occipital lobe. Subacute ischemia suggested. No acute intracranial hemorrhage or midline shift. Possible acute on chronic maxillary sinusitis. Moderate chronic ethmoid sinus disease. I personally reviewed the CT of head and agree with the report. CT angiography of the head and neck was reported as no large vessel intracranial arterial occlusion, significant stenosis or aneurysm changes seen. While for the neck it is reported as moderate atherosclerotic change at the right carotid bifurcation. This results in moderate just over 50% proximal right ICA stenosis. No significant ICA stenosis on the left. 2-D echo was reported as moderately to severely impaired left ventricle systolic function with segmental wall motion abnormality. MARY Reported as: 1. Mildly dilated left atrium was occluded left atrial appendage and no flow noted 2. Moderate impairment of the left ventricle systolic function 3. No shunting across the intra-atrial septum 4. Mild to moderate mitral and mild tricuspid regurgitation 5. Mild aortic regurgitation Carotid duplex is reported as no hemodynamically significant internal carotid artery stenosis on either side. MR the brain on 01/22/2023 is reported as acute/subacute CVA involving the right occipital with blooming artifact and high T1 signal suggestive of blood product which are not apparent on prior CT of . Nonspecific white matter suresh es, likely secondary due to small vessel ischemic disease. Repeat CT of the head on 01/22/2023 is reported as evolving right occipital lobe infarct with slight increase in degree of hypodensity. No interval acute intracranial hemorrhage. There may be some underlying subacute petechial/gyriform hemorrhage relating to the infarct given the signal change on MRI. Possible acute on chronic right maxillary sinusitis. Repeat CT of the head on 01/23/2023: It is reported as similar evolution of the right occipital lobe infarct. No evidence for acute intracranial hemorrhage. I personally reviewed the CT and I feel the patient has right occipital infarcts and I feel this suspicious questionable hypodensity over her right cerebellar but it's only seen on one cut. Otherwise could not appreciate any bleeding seen on this CAT scan. MRI of the brain is reported as right occipital lobe infarct which may have some mild blood product present is stable in appearance from the recent that comparison study. No new acute ischemic change or infarct. I personally reviewed the MRI and agree with the report. - Labs CBC & Chem 7: 01/25/23 09:15 01/25/23 09:15 Labs: Abnormal Lab Results - Last 24 Hours (Table) 01/24/23 01/24/2323 Range/Units 16:50 16:51 20:40 Sodium (137-145) mmol/L Potassium (3.5-5.1) mmol/L Carbon Dioxide (22-30) mmol/L BUN (7-17) mg/dL Creatinine (0.52-1.04) mg/dL Glucose (74-99) mg/dL POC Glucose (mg/dL) 280 H 271 H 261 H (70-110) mg/dL 01/25/23 01/25/23 01/25/23 Range/Units 06:20 09:15 11:55 Sodium 136 L (137-145) mmol/L Potassium 5.2 H (3.5-5.1) mmol/L Carbon Dioxide 20 L (22-30) mmol/L BUN 29 H (7-17) mg/dL Creatinine 1.11 H (0.52-1.04) mg/dL Glucose 141 H (74-99) mg/dL POC Glucose (mg/dL) 121 H 150 H (70-110) mg/dL Assessment and Plan Assessment: This is a 77-year-old woman who presented because of the director of her neuro electrical supervisor because of her at hemianopsia that started 3 days prior to presented to our facility. New onset left distal hand numbness 2 days in AM: Possible TIA but repeat MRI is stable and no new acute infarct Subacute ischemic stroke over the right occipital (on examination has left upper quandrant anopsia). Unknown exact cause rule out cardioembolic especially with history of A-fib and possible Eliquis was low dose. Has segmental wall motion abnormality on the 2-D echo but MARY is left atrial appendage is occluded and no shunting. Systolic heart failure with ejection fraction of 35-40% with segmental wall motion abnormality on the 2-D echo Recent hyperthyroidism with proptosis of left eye and was placed on steroids History of atrial fibrillation on eliquis History of Coronary artery disease status post CABG Hypertension Diabetes mellitus with a hemoglobin A1c of 8.7. Plan: MRI of the brain: And showed acute on subacute right occipital with the blood products. Patient had repeated too CT heads one yesterday and one today and there is no evidence for any bl bleeding on the CAT scan. Repeat MRI is stable and no acute or subacute changes. Patient was resumed on her home dose of eliquis 2.5 mg 1 tablet twice a day. Her Eliquis was increased from 2.5mg to 5mg and was continued on her home dose of ASA 81mg daily. Today denies of any new neurological issues. She is currently on Lipitor 40 mg daily at bedtime. She had MARY reported as 1. Mildly dilated left atrium was occluded left atrial appendage and no flow noted. No shunting. I spoke with Dr. Hess who performed the MARY and he stated the left atrial appendage is occluded from prior cardiac surgery she had nothing alarming on MARY per Dr. Hess. Continue neuro checks On cardiac monitoring PT OT and SPECIALIST [employer]OYEE [employer] RELATIONS are consulted We'll defer the rest of the medical management to primary team For DVT prophylaxis the patient is on eliquis. Upon discharge, recommend the patient to follow-up with a neurologist as outpatient within 1-2 weeks. The plan was discussed with the patient. Otherwise, no additional neurological work-up. Please notify neurology team if any further concerns. Time with Patient: Less than 30
[2023-01-25] MEDS ORDERED: methylPREDNISolone SOD SUCCI 40 MG/ML 1 ML VIAL IV STA (15:37)
--- NOTE | 2023-01-25 15:59 | P.DS ---
Providers Date of admission: 01/19/23 22:01 Attending physician: Rik Ortiz Consults: 01/19/23 22:00 Consult Physician Urgent Consulting Provider: Denys Cole Consult Reason/Comments: acute cva Do you want consulting provider notified?: Yes 01/20/23 12:58 Consult Physician Routine Consulting Provider: Rakesh Mcginnis Consult Reason/Comments: acute occular stroke, hx afib on eliquis2.5mg BID/[id number] daily Do you want consulting provider notified?: Yes Primary care physician: [facility] Course: Final Diagnosis Acute ischemic stroke right occipital with left hemianopsia failed outpatient therapy with eliquis 2.5 mg bid/aspirin 81 mg daily Shortness of breath, cough and fever likely an acute bronchitis chest xray shows COPD changes focal density noted in the left base and unable to exclude underlying pulmonary nodule. Acute sinusitis with congestion and drainage Hyperthyroidism on methimazole with improved thyroid function. 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 Patient recommended to see her PCP Dr. Foster within 1-2 days on discharge. Additionally patient to see her neuro-ophthalmologists Dr. Gomes,, as well as Dr. Kidd her hvac/r service technician. Recommended to see a neurologist and establish care 1-[address] Correa has recommended however patient may choose a neurologist. Patient to follow up with lumber sales supervisor, her pediatric geneticist and also recommended to see Dr. Glover with pulmonary services regarding a possible pulmonary nodule found on imaging. Patient recommending to continue on oral prednisone taper as recommended by her neuro-hvac/r service technician for her left eye proptosis. She is to continue on same methimazole dosing as her thyroid function has improved. Patient will also be discharged on oral Augmentin for 6 days to complete a course of antibiotic therapy for acute sinusitis as well as Flonase and Pulmicort. After neurology and cardiology evaluation patient is an recommending to increase eliquis up to 5 mg twice a day and remain on aspirin 81 mg daily. Additionally patient is recommending to discontinue metformin and will start at this time her renal function has improved and is now normal. She was discharged on glipizide. Midodrine discontinued as patient's blood pressure has been running 140/60s. Repeat labs in 2 to 3 days. Hospital Course This is a pleasant 77-year-old female with medical history of atrial fibrillation anticoagulated both low-dose eliquis and baby aspirin, hyperthyroidism on methimazole, Graves' ophthalmopathy, chronic kidney disease, chronic systolic heart failure, hypertension, three-vessel coronary artery bypass grafting, dyslipidemia, bowel resection and breast cancer. Patient presents for hospital concern for vision changes in her left eye she was sent in by her neuro-hvac/r service technician who presented examination. The patient may have had a stroke. Initial brain CT reveals focal cortical and subcortical hypodensity in the right occipital lobe subacute ischemia suggested. There is moderate acute and chronic maxillary sinusitis and moderate chronic ethmoid sinus disease. Patient is not a candidate for TPA infusion. She was admitted to the hospital under medicine with a neurology consultation. Stroke workup consists of an echocardiogram which reveals an EF of 35-40% with global hypokinesis worse in the inferior and lateral wall with moderate to severe impairment in the LV systolic function and mild MR and TR. Carotid Doppler reveals no hemodynamically significant ICA stenosis on either side. CT angiography reveals moderate atherosclerotic change at the right carotid bifurcation just 50% proximal right ICA stenosis. There is no significant ICA stenosis in the left. There is no large vessel intracranial arterial occlusion significant stenosis ranges will change. Due to the findings of an acute ischemic stroke while on anticoagulant therapy patient underwent a MARY which reveals mildly dilated left atrium was occluded left atrial appendage and no flow noted. Moderate impairment of the left ventricle systemic function. No shunting across the intra-artial septum. Mild to moderate gogo and mild TR and mild aortic regurgitation. An MRI was completed which confirmed an acute subacute CVA involving the right occipital lobe with pulmonary artifact and high T1 signal suggests stable blood products which are now apparent on prior CT. There is nonspecific white matter changes likely secondary to small vessel ischemic disease. The brain CT was completed and reviewed by neurology who felt that this was not a bleed. -Patient had a creatinine level of 1.41 on admission which did improve down to 1.11 after discontinuing losartan and metformin. recommended to continue to avoid nephrotoxic medications. -On admission the TSH was found to be less than 0.005 and a free T4 of 2.08. Patient had been resumed on home dose of methimazole 2.5 mg daily which was just resumed by her lumber sales supervisor within the last week. Follow-up thyroid studies reveal a TSH of less than 0.015 and a free T4 of 1.64. She was continued on her oral prednisone for her eye proptosis and was given a dose of IV Solu-Medrol patient states that this has improved her eye symptoms and bulging has improved. She reports improvement in her visual hanson after receiving IV steroids. She was also complaining of sinus congestion and will be treated for acute sinusitis with oral Augmentin. Patient is given a second dose of IV solumedrol prior to discharge and recommended to complete her oral prednisone taper as prior to the hospital stay. Currently denying any shortness of breath denying chest pain, no nausea vomiting or diarrhea. Lungs are Clear S1-S2 auscultated abdomen is soft and nontender. No focal neurological deficits in extremities no swallowing or speech difficulties, no aphasia. Patient was discharged home with the above-mentioned recommendations. Please see medication reconciliation for list of current medications. Thank you for allowing us to participate in the care of this patient. The impression and plan of care has been dictated by Reva Cochran, Nurse Practitioner as directed. Dr. Monie MD I have performed a history and physical examination and medical decision making of this patient, discussed the same with the dictator, and agree with the dictators assessment and plan as written, documented as a scribe. Based on total visit time, I have performed more than 50% of this visit. Patient Condition at Discharge: Fair Plan - Discharge Summary Discharge Rx Participant: No New Discharge Prescriptions: New Loratadine [Claritin] 5 mg PO DAILY tab Fluticasone Nasal [place] [Flonase Nasal [place]] 2 spray EA NOSTRIL DAILY ml Budesonide [Pulmicort] 0.5 mg INHALATION RT-BID #1 each Aspirin 81 mg PO DAILY #30 tab Apixaban [Eliquis] 5 mg PO BID #60 tab glipiZIDE [Glucotrol] 2.5 mg PO AC-BID #60 tablet Amoxic-Pot Clav 875-125Mg [Augmentin 875-125] 1 each PO Q12HR 6 Days #12 tab Continue Cholecalciferol [Vitamin D3 (25 Mcg = 1000 Iu)] 25 mcg PO DAILY ALPRAZolam [Xanax] 1 mg PO BID predniSONE [Deltasone] See Taper PO DIRECTED Amitriptyline HCl [Elavil] 20 mg PO HS Sertraline [Zoloft] 100 mg PO DAILY Pantoprazole Sodium [Protonix] 40 mg PO DAILY Potassium Chloride ER [K-Dur 20] 20 meq PO DAILY Furosemide [Lasix] 20 mg PO DAILY Metoprolol Tartrate [Lopressor] 12.5 mg PO BID tab Ezetimibe [Zetia] 10 mg PO HS Atorvastatin [Lipitor] 40 mg PO HS methIMAzole [Tapazole] 2.5 mg PO DAILY Discontinued Losartan [Cozaar] 25 mg PO DAILY 30 Days #30 tab Apixaban [Eliquis] 2.5 mg PO BID #60 tab Midodrine HCl [ProAmatine] 10 mg PO AC-BID Aspirin 81 mg PO DAILY 30 Days #30 tab metFORMIN HCL [Glucophage] 500 mg PO BID Discharge Medication List Cholecalciferol [Vitamin D3 (25 Mcg = 1000 Iu)] 25 mcg PO DAILY 01/21/21 [History] ALPRAZolam [Xanax] 1 mg PO BID 03/31/21 [History] Metoprolol Tartrate [Lopressor] 12.5 mg PO BID tab 05/22/21 [Rx] Amitriptyline HCl [Elavil] 20 mg PO HS 01/19/23 [History] Atorvastatin [Lipitor] 40 mg PO HS 01/19/23 [History] Ezetimibe [Zetia] 10 mg PO HS 01/19/23 [History] Furosemide [Lasix] 20 mg PO DAILY 01/19/23 [History] Pantoprazole Sodium [Protonix] 40 mg PO DAILY 01/19/23 [History] Potassium Chloride ER [K-Dur 20] 20 meq PO DAILY 01/19/23 [History] Sertraline [Zoloft] 100 mg PO DAILY 01/19/23 [History] methIMAzole [Tapazole] 2.5 mg PO DAILY 01/19/23 [History] predniSONE [Deltasone] See Taper PO DIRECTED 01/19/23 [History] Apixaban [Eliquis] 5 mg PO BID #60 tab 01/23/23 [Rx] Aspirin 81 mg PO DAILY #30 tab 01/23/23 [Rx] glipiZIDE [Glucotrol] 2.5 mg PO AC-BID #60 tablet 01/23/23 [Rx] Amoxic-Pot Clav 875-125Mg [Augmentin 875-125] 1 each PO Q12HR 6 Days #12 tab 01/25/23 [Rx] Budesonide [Pulmicort] 0.5 mg INHALATION RT-BID #1 each 01/25/23 [Rx] Fluticasone Nasal [place] [Flonase Nasal [place]] 2 spray EA NOSTRIL DAILY ml 01/25/23 [Rx] Loratadine [Claritin] 5 mg PO DAILY tab 01/25/23 [Rx] Follow up Appointment(s)/Referral(s): Brian Hess MD [STAFF PHYSICIAN] - 1 Week Malika Correa MD [Medical Doctor] - 1 Week Brian Foster DO [Primary Care Provider] - 1-2 days Jesica Sims [STAFF PHYSICIAN] - 1 Week Hu Glover MD [STAFF PHYSICIAN] - 1 Week (Follow up for possible pulmonary nodule noted on imaging.) Ambulatory/Diagnostic Orders: Basic Metabolic Panel [LAB.AMB] Time Frame: 3 Days, Location: None Selected Complete Blood Count w/diff [LAB.AMB] Time Frame: 3 Days, Location: None Selected Activity/Diet/Wound Care/Special Instructions: Need to Follow up with neurology on discharge and also follow up with your neuro-hvac/r service technician on discharge as well; Dr. Gomes Continue your oral prednisone taper for your eye proptosis Follow up with your pediatric geneticist and your PCP, Dr. Brian Foster in 1 to 2 days Eliquis has been increased to 5 mg twice a day and continue on aspirin 81 mg daily Follow up with your lumber sales supervisor on discharge Dr. Jesica Sims Continue on same dose of methimazole Started on glipizide for blood glucose control and continue while on oral steroids and continue to monitor blood glucose at home avoid hypoglycemia and hold medication if blood sugar low less than 120s and discuss continuing with your PCP. Recommend off metformin due to the renal dysfunction For the sinusitis Complete course of oral antibiotics augmentin BID for the next 6 days to complete 7 days total of antibiotic therapy Continue flonase daily Continue on pulmicort inhaler twice a day until symptoms resolve. Discharge Disposition: HOME WITH HOME HEALTH SERVICES
[2023-01-25 16:25] LABS: Glucose,Whole Blood 348 mg/dL (70-110)
[2023-01-25 17:48] VITALS: PULSE 53
== END 2023-01-25 18:53 | disposition home health service (06) | DRG 65 ==
LOC: EC 17:50 → 3SCARD 22:01
PROVIDERS: ADMIT Hospitalist; ATTEND Hospitalist
PROC: B24BZZ4 Ultrasonography of Heart with Aorta, Transesophageal (ICD-10-PCS; principal; 2023-01-22 10:00)
DX: I63.9 Cerebral infarction, unspecified (principal); I13.0 Hypertensive heart and chronic kidney disease with heart failure and stage 1 through stage 4 chronic kidney disease, or unspecified chronic kidney disease; I50.22 Chronic systolic (congestive) heart failure; I42.9 Cardiomyopathy, unspecified; J44.0 Chronic obstructive pulmonary disease with (acute) lower respiratory infection; E11.649 Type 2 diabetes mellitus with hypoglycemia without coma; H05.20 Unspecified exophthalmos; H53.462 Homonymous bilateral field defects, left side; E86.0 Dehydration; E11.22 Type 2 diabetes mellitus with diabetic chronic kidney disease; I48.0 Paroxysmal atrial fibrillation; G31.9 Degenerative disease of nervous system, unspecified; E05.00 Thyrotoxicosis with diffuse goiter without thyrotoxic crisis or storm; J01.00 Acute maxillary sinusitis, unspecified; E11.65 Type 2 diabetes mellitus with hyperglycemia; Z66 Do not resuscitate; Z20.822 Contact with and (suspected) exposure to COVID-19; R29.702 NIHSS score 2; J20.9 Acute bronchitis, unspecified; J32.0 Chronic maxillary sinusitis; J32.2 Chronic ethmoidal sinusitis; R00.1 Bradycardia, unspecified; N18.9 Chronic kidney disease, unspecified; I25.10 Atherosclerotic heart disease of native coronary artery without angina pectoris; I08.1 Rheumatic disorders of both mitral and tricuspid valves; E78.5 Hyperlipidemia, unspecified; I25.2 Old myocardial infarction; I44.7 Left bundle-branch block, unspecified; I65.21 Occlusion and stenosis of right carotid artery; M19.90 Unspecified osteoarthritis, unspecified site; T38.0X5A Adverse effect of glucocorticoids and synthetic analogues, initial encounter; Z79.01 Long term (current) use of anticoagulants; Z79.82 Long term (current) use of aspirin; Z79.84 Long term (current) use of oral hypoglycemic drugs; Z79.899 Other long term (current) drug therapy; Z95.1 Presence of aortocoronary bypass graft; Z85.3 Personal history of malignant neoplasm of breast; Z96.652 Presence of left artificial knee joint; Z85.828 Personal history of other malignant neoplasm of skin; Z87.891 Personal history of nicotine dependence
CPT/HCPCS: 36415; 70450; 70496; 70498; 70551; 71046; 80048; 80053; 80061; 82550; 82607; 82746; 83036; 83735; 84132; 84145; 84439; 84443; 84484; 85025; 85610; 85730; 87636; 93005; 93306; 93312; 93320; 93325; 93880; 94640; 94760; 99285

== ENCOUNTER → 2023-02-11 | Outpatient (CLI) | payer MEDICARE ==
--- NOTE | 2023-02-11 19:08 | MR ---
EXAMINATION TYPE: MR brain wo con DATE OF EXAM: 02/11/2023 COMPARISON: 01/23/2023 HISTORY: Left extremity paralysis, Stroke CONTRAST: Performed utilizing 0 mL intravenous Gadavist gadolinium contrast. TECHNIQUE: Multiplanar, multiecho imaging on a 3.0 Katina magnet is performed through the brain. Stud y is performed within 24 hours of arrival to the hospital. The craniovertebral junction is normal. The pituitary is normal. Diffusion-weighted imaging is performed. There is some mild hyperintensity within the inferior media l right occipital lobe. This was present previously. There is some hypodensity within this region on T2, sequences compatible some minimal hemorrhage present in this region. This area is stable from com parison. There are scattered punctate areas of hyperintensity on T2 and Inversion Recovery weighted sequences which are non-specific but can be related to microvascular ischemic changes. Findings were present pr eviously Ventricles and sulci are prominent for the patient age. IMPRESSIONS: 1. Stable appearance of MRI of the brain from comparison. 2. Hyperintensity on diffusion inferior medial right occipital lobe. Some minimal adjacent sulcal hem orrhage was present previously. Findings are unchanged from comparison. 3. Scattered chronic appearing punctate white matter change likely on the basis of chronic white agnes er ischemic change.
== END | disposition home or self-care (01) ==
LOC: RADMRIMAIN 16:52
PROVIDERS: ATTEND Psychiatry & Neurology Neurology
DX: I63.9 Cerebral infarction, unspecified (principal); G82.20 Paraplegia, unspecified
CPT/HCPCS: 70551

== ENCOUNTER → 2023-10-12 | Outpatient (CLI) | payer MEDICARE ==
--- NOTE | 2023-10-13 04:57 | MR ---
EXAMINATION TYPE: MR orbits wo/w con DATE OF EXAM: 10/12/2023 COMPARISON: MRI brain February 11, 2023 and older studies. HISTORY: Exophthalmos, History of stroke in last 6 months, double vision, right eye has curtain/ shad ow to it. TECHNIQUE: Multiplanar, multisequence images of the brain and brainstem focusing on the orbits performed without and with IV contrast, utilizing 6 mL intravenous Gadavist . FINDINGS: Midline structures redemonstrate partial empty sella morphology. The craniocervical junction remains within normal limits. Bilateral exophthalmos remains present unchanged from prior old CTs and MRIs. Rectus muscles are symmetric and felt within normal limits. No abnormal enhancing masses are seen. Bertrand prasellar cistern is maintained. Optic chiasm is not effaced. Visualized brain parenchyma redemonstra yunior fairly moderate generalized atrophy not significantly changed from prior. The visualized paranasa l sinuses remain grossly clear. IMPRESSION: Persistent bilateral exophthalmus without abnormal intraorbital enhancement or enhancing mass. No significant change from prior CT or MRI studies.
== END | disposition home or self-care (01) ==
LOC: RADMRIMAIN 14:23
PROVIDERS: ATTEND Ophthalmology
DX: H05.243 Constant exophthalmos, bilateral (principal); H53.2 Diplopia; Z86.73 Personal history of transient ischemic attack (TIA), and cerebral infarction without residual deficits
CPT/HCPCS: 70543; A9585

== ENCOUNTER → 2024-02-29 | Outpatient (CLI) | payer MEDICARE ==
--- NOTE | 2024-02-29 18:03 | MR ---
EXAMINATION TYPE: MR iac wo/w con DATE OF EXAM: 02/29/2024 COMPARISON: 02/11/2023 HISTORY: Right sided hearing loss, hx cancer top of right ear. CONTRAST: Performed utilizing 5 mL intravenous Gadavist gadolinium contrast. TECHNIQUE: Multiplanar, multiecho imaging on a 3.0 Katina magnet is performed through the brain. Atte ntion is paid to the internal auditory canals with thin section imaging. Postcontrast imaging is per formed through the internal auditory canals. FINDINGS:Craniovertebral junction is normal. The pituitary is normal. Diffusion-weighted imaging is performed. No suspicious hyperintensity is present to suggest an acute intracranial infarct or acute ischemic area. There may be a chronic old ischemic change along the m edial right occipital lobe. Some flow voids may be present on T1-weighted sequences suggesting underl pablo vascular anomaly may be present. Ischemic changes appear to be maturing normally. Signal within the brain has scattered areas of hyperintensity which are non-specific but could be rel ated to chronic appearing microvascular ischemic changes. Thin section imaging is performed through the internal auditory canals and cerebellar pontine angles. No cerebellar pontine angle masses are evident. The internal auditory canals appear normal without expansion or erosion. Postcontrast imaging was performed. No suspicious enhancement is evident within the internal audito ry canals or the included portions of the brain. IMPRESSION: 1. Normal internal auditory canals. No suspicious anomaly suggests metastatic disease. 2. Old ischemic type change along the inferior medial right occipital lobe. Underlying vascular anoma ly may be present. This area appears to be maturing normally from comparison study. No suspicious acu te changes at this level.
== END | disposition home or self-care (01) ==
LOC: RADMRIMAIN 16:30
PROVIDERS: ATTEND Otolaryngology
DX: H93.3X9 Disorders of unspecified acoustic nerve (principal); H91.91 Unspecified hearing loss, right ear
CPT/HCPCS: 70553

== ENCOUNTER 2024-10-11 20:34 | Inpatient (IN) | payer MEDICARE ==
--- NOTE | 2024-10-11 21:09 | ED ---
Chest Pain HPI - General Chief Complaint: Chest Pain Stated Complaint: Chest Pain Time Seen by Provider: 10/11/24 20:53 Source: patient, EMS, RN notes reviewed, old records reviewed Mode of arrival: EMS Limitations: no limitations - History of Present Illness Initial Comments: This is a 79 female to the ER for evaluation history of CABG coming in with c hest pain today. The chest pain did resolve with nitro per EMS and patient arrives to the ER without any chest pain. Patient has no current complaints. Member at bedside concerned that patient may be having recurrent VT. She states when she had a prior VT her symptoms were confusion and she was having some confusion lately and she was been fatigued over the weekend MD Complaint: chest pain -: hour(s) Onset: during rest, during exertion Pain Location: left chest Pain Radiation: none Severity: moderate Severity scale (1-10): 4 Quality: tightness Consistency: constant Improves With: nothing Worsens With: nothing Context: recent illness Anginal Symptoms: dyspnea Other Symptoms: palpitations Treatments Prior to Arrival: none - Related Data Home Medications Medication Instructions Recorded Confirmed Cholecalciferol [Vitamin D3 (25 25 mcg PO DAILY 01/21/21 10/12/24 Mcg = 1000 Iu)] ALPRAZolam [Xanax] 1 mg PO BID 03/31/21 10/12/24 Amitriptyline HCl [Elavil] 20 mg PO HS 01/19/23 10/12/24 Ezetimibe [Zetia] 10 mg PO HS 01/19/23 10/12/24 Furosemide [Lasix] 20 mg PO DAILY 01/19/23 10/12/24 Potassium Chloride ER [K-Dur 20] 20 meq PO DAILY 01/19/23 10/12/24 Sertraline [Zoloft] 100 mg PO DAILY 01/19/23 10/12/24 Empagliflozin [Jardiance] 12.5 mg PO DAILY 10/11/24 10/12/24 methIMAzole [Tapazole] 2.5 mg PO DAILY 10/11/24 10/12/24 Previous Rx's Medication Instructions Recorded Apixaban [Eliquis] 5 mg PO BID #60 tab 01/23/23 Fluticasone Nasal [place] [Flonase 2 spray EA NOSTRIL DAILY ml 01/25/23 Nasal [place]] Amiodarone [Cordarone] 200 mg PO DAILY #30 tab 10/15/24 Aspirin 81 mg PO DAILY #30 tab 10/15/24 Atorvastatin [Lipitor] 80 mg PO DAILY #30 tab 10/15/24 Isosorbide Mononitrate ER [Imdur] 30 mg PO DAILY #30 tab 10/15/24 Metoprolol Tartrate [Lopressor] 25 mg PO BID #60 tab 10/15/24 Nitroglycerin Sl Tabs [Nitrostat] 0.4 mg SUBLINGUAL Q5M PRN #20 tab 10/15/24 lisinopriL [Zestril] 10 mg PO DAILY #30 tab 10/15/24 Allergies Allergy/AdvReac Type Severity Reaction Status Date / Time Milk Containing Products Allergy Unknown Verified 10/12/24 13:29 (Dairy) [Dairy] peanut Allergy Unknown Verified 10/14/24 00:50 wheat Allergy Unknown Verified 10/12/24 13:29 chocolate AdvReac Diarrhea Verified 10/14/24 00:48 corn AdvReac Diarrhea Verified 10/14/24 00:50 egg AdvReac Diarrhea Verified 10/14/24 00:48 soy AdvReac Diarrhea Verified 10/14/24 00:50 sweet potato AdvReac Unknown Verified 10/14/24 08:39 tomato AdvReac Diarrhea Verified 10/14/24 00:50 noodles AdvReac Unknown Uncoded 10/14/24 08:39 potato AdvReac Unknown Uncoded 10/14/24 08:39 Review of Systems ROS Statement: Those systems with pertinent positive or pertinent negative responses have been documented in the HPI. ROS Other: All systems not noted in ROS Statement are negative. EKG Findings - EKG Comments: EKG Findings:: EKG does show left bundle branch morphology, rate 74 GA 144 QRS 148 QTc 431 - EKG Results: EKG: interpreted by ERMD, no acute changes (Patient does have old left bundle branch block as of EKG 2 years ago) Past Medical History Past Medical History: Coronary Artery Disease (CAD), Cancer, Hyperlipidemia, Hypertension, Memory Impairment, Myocardial Infarction (VT), Osteoarthritis (OA) Additional Past Medical History / Comment(s): 01/25/21 CABG X3 Last Myocardial Infarction Date:: 01/21/21 History of Any Multi-Drug Resistant Organisms: None Reported Past Surgical History: Appendectomy, Bladder Surgery, Bowel Resection, Breast Surgery, Cholecystectomy, Coronary Bypass/CABG, Hysterectomy, Orthopedic Surgery, Tubal Ligation Additional Past Surgical History / Comment(s): cataractsurgery x2 with lens implants, masectomy on right breast, bowel resection with colostomy and reversal, bladder suspension, left knee replacement, skin cancer removed from right ear Past Anesthesia/Blood Transfusion Reactions: No Reported Reaction Past Psychological History: No Psychological Hx Reported, Depression Smoking Status: Former smoker, Unknown if ever smoked Past Alcohol Use History: None Reported Past Drug Use History: None Reported - Past Family History Father Family Medical History: AFIB, Congestive Heart Failure (CHF) Mother Family Medical History: Cancer Additional Family Medical History / Comment(s): breast cancer with mets General Exam Limitations: no limitations General appearance: alert, in no apparent distress Head exam: Present: atraumatic, normocephalic, normal inspection Eye exam: Present: normal appearance, PERRL, EOMI. Absent: scleral icterus, conjunctival injection, periorbital swelling ENT exam: Present: normal exam, mucous membranes moist Neck exam: Present: normal inspection. Absent: tenderness, meningismus, lymphadenopathy Respiratory exam: Present: normal lung sounds bilaterally. Absent: respiratory distress, wheezes, rales, rhonchi, stridor Cardiovascular Exam: Present: regular rate, normal rhythm, normal heart sounds. Absent: systolic murmur, diastolic murmur, rubs, gallop, clicks GI/Abdominal exam: Present: soft, normal bowel sounds. Absent: distended, tenderness, guarding, rebound, rigid Extremities exam: Present: normal inspection, full ROM, normal capillary refill. Absent: tenderness, pedal edema, joint swelling, calf tenderness Back exam: Present: normal inspection Neurological exam: Present: alert, oriented X3, CN II-XII intact Psychiatric exam: Present: normal affect, normal mood Skin exam: Present: warm, dry, intact, normal color. Absent: rash Course Vital Signs 10/11/24 10/11/24 10/11/24 20:37 21:30 21:45 Temperature 98.5 F Pulse Rate 77 64 68 Respiratory 19 15 16 Rate Blood Pressure 95/69 117/41 O2 Sat by Pulse 98 97 96 Oximetry 10/11/24 10/11/24 10/11/24 22:12 23:00 23:30 Temperature Pulse Rate 68 65 59 L Respiratory 19 20 18 Rate Blood Pressure 120/38 128/44 136/48 O2 Sat by Pulse 94 L 97 96 Oximetry 10/12/24 10/12/24 10/12/24 00:00 00:30 01:00 Temperature Pulse Rate 59 L 60 56 L Respiratory 22 15 16 Rate Blood Pressure 135/50 128/46 142/50 O2 Sat by Pulse 97 95 99 Oximetry 10/12/24 10/12/24 10/12/24 02:00 04:08 06:00 Temperature Pulse Rate 56 L 54 L 59 L Respiratory 19 16 16 Rate Blood Pressure 143/50 127/53 119/57 O2 Sat by Pulse 97 98 Oximetry 10/12/24 10/12/24 10/12/24 08:00 09:00 10:59 Temperature Pulse Rate 59 L 58 L 125 H Respiratory 16 18 18 Rate Blood Pressure 118/44 137/54 117/61 O2 Sat by Pulse 99 100 100 Oximetry 10/12/24 10/12/24 15:01 17:17 Temperature 98.4 F Pulse Rate 50 L 55 L Respiratory 18 20 Rate Blood Pressure 127/45 134/50 O2 Sat by Pulse 98 98 Oximetry - Reevaluation(s) Reevaluation #1: 10/11/24 23:08 Medical records reviewed Reevaluation #2: 10/11/24 23:08 Patient is without chest pain here in the ER Reevaluation #3: 10/11/24 23:08 Patient informed of results and questions answered Reevaluation #4: Was pt. sent in by a medical professional or institution (, PA, SALES ASSISTANT, urgent care, hospital, or assisted...) When possible be specific @ -no Did you speak to anyone other than the patient for history (EMS, parent, family, police, friend...)? What history was obtained from this source @ -no Did you review nursing and triage notes (agree or disagree)? Why? @ -agree Are old charts reviewed (outside hosp., previous admission, EMS record, old EKG, old radiological studies, urgent care reports/EKG's, assisted records)? Report findings @ -yes Differential Diagnosis (chest pain, altered mental status, abdominal pain women, abdominal pain men, vaginal bleeding, weakness, fever, dyspnea, syncope, headache, dizziness, GI bleed, back pain, seizure, CVA, palpatations, mental health, musculoskeletal)? @ -prior EKG interpreted by me (3pts min.). @ -yes X-rays interpreted by me (1pt min.). @ -yes negative for acute disease CT interpreted by me (1pt min.). @ -no U/S interpreted by me (1pt. min.). @ -no What testing was considered but not performed or refused? (CT, X-rays, U/S, labs)? Why? @ -none What meds were considered but not given or refused? Why? @ -none Did you discuss the management of the patient with other professionals (professionals i.e. , PA, SALES ASSISTANT, lab, RT, psych nurse, licensed master social worker, process development manager, teacher, staff weapons officer, lead case manager)? Give summary @ -no Was smoking cessation discussed for >3mins.? @ -no Was critical care preformed (if so, how long)? @ -yes31 Were there social determinants of health that impacted care today? How? (Homelessness, low income, unemployed, alcoholism, drug addiction, transpor tation, low edu. Level, literacy, decrease access to med. care, nursing home, rehab)? @ -none Was there de-escalation of care discussed even if they declined (Discuss DNR or withdrawal of care, Hospice)? DNR status @ -no What co-morbidities impacted this encounter? (DM, HTN, Smoking, COPD, CAD, Cancer, CVA, ARF, Chemo, Hep., AIDS, mental health diagnosis, sleep apnea, morbid obesity)? @ -none Was patient admitted / discharged? Hospital course, mention meds given and route, prescriptions, significant lab abnormalities, going to OR and other pertinent info. @ - 79 female to ER with chest pain chest pain resolved with nitro en route to hospital elevated troponin non-ST elevated VT left bundle branch morphology on EKG which she has a history of left bundle, patient will admit for ACS Admit Undiagnosed new problem with uncertain prognosis? @ -no Drug Therapy requiring intensive monitoring for toxicity (Heparin, Nitro, Insulin, Cardizem)? @ -no Were any procedures done? @ -no Diagnosis/symptom? @ -ACS Acute, or Chronic, or Acute on Chronic? @ -Acute Uncomplicated (without systemic symptoms) or Complicated (systemic symptoms)? @ -Complicated Side effects of treatment? @ -no Exacerbation, Progression, or Severe Exacerbation? @ -exacerbation Poses a threat to life or bodily function? How? (Chest pain, USA, VT, pneumonia, PE, COPD, DKA, ARF, appy, cholecystitis, CVA, Diverticulitis, Homicidal, Suicidal, threat to staff... and all critical care pts) @ -yes extremes of age Reevaluation #5: Differential Chest Pain: Stable Angina, Unstable Angina, STEMI, NSTEMI Aortic Dissection, Pneumothorax, Musculoskeletal, Esophageal Spasm GERD, Cholecystitis, Pancreatitis, Zoster, this is not meant to be an all-inclusive list. - Consultations Consultation #1: Spoke with terra who agrees to admit this patient Chest Pain MDM - MDM 79 female to ER with chest pain chest pain resolved with nitro en route to hospital elevated troponin non-ST elevated VT left bundle branch morphology on EKG which she has a history of left bundle, patient will admit for ACS Critical Care Time Critical Care Time: Yes Total Critical Care Time: 31 Disposition Clinical Impression: Chest pain, Acute non-ST elevation myocardial infarction (NSTEMI) Disposition: ADMITTED IP TO THIS HOSP Condition: Serious Is patient prescribed a controlled substance at d/c from ED?: No Time of Disposition: 23:00
[2024-10-11 21:31] LABS: Basophils # (A) 0.01 10*3/uL (0.00-0.10); Basophils % (A) 0.1 %; Eosinophils # (A) 0.03 10*3/uL (0.04-0.35); Eosinophils % (A) 0.4 %; HCT 37.6 % (37.2-46.3); HGB 12.7 g/dL (12.0-15.0); Lymphocytes # (A) 0.46 10*3/uL (0.90-5.00); Lymphocytes % (A) 6.7 %; MCH 28.7 pg (27.0-32.0); MCHC 33.8 g/dL (32.0-37.0); MCV 85.1 fL (80.0-97.0); Monocytes # (A) 0.39 10*3/uL (0.20-1.00); Monocytes % (A) 5.7 %; Neutrophils # (A) 5.99 10*3/uL (1.80-7.70); Platelet Count 168 10*3/uL (140-440); RBC 4.42 10*6/uL (4.10-5.20); RDW 12.5 % (11.5-14.5); WBC 6.89 10*3/uL (4.50-10.00)
[2024-10-11 21:44] LABS: INR 0.9 (<1.2); Partial Thromboplastin Time 26.7 sec (22.0-30.0); Prothrombin Time 10.5 sec (10.0-12.5)
[2024-10-11 21:47] LABS: ALT 14 U/L (4-34); AST 28 U/L (14-36); African American GFR (CKD) 28 (>60 ml/min/1.73 sqM); Alkaline Phosphatase 89 U/L (38-126); Anion Gap 13 mmol/L; Blood Urea Nitrogen 23 mg/dL (7-17); Calcium 9.5 mg/dL (8.4-10.2); Carbon Dioxide 19 mmol/L (22-30); Chloride 105 mmol/L (98-107); Glucose 135 mg/dL (74-99); Lipase 36 U/L (23-300); Magnesium 2.1 mg/dL (1.6-2.3); Non-African American GFR(CKD) 25 (>60 ml/min/1.73 sqM); Potassium 4.1 mmol/L (3.5-5.1); Sodium 137 mmol/L (137-145); Total Bilirubin 0.9 mg/dL (0.2-1.3); Total Protein 6.1 g/dL (6.3-8.2)
[2024-10-11 21:53] LABS: NT-Pro-B-Type Natriuretic Pept 4130 pg/mL
--- NOTE | 2024-10-11 22:02 | XR ---
EXAMINATION TYPE: XR chest 2V DATE OF EXAM: 10/11/2024 9:44 PM COMPARISON: 01/19/2023 CLINICAL INDICATION: Female, 79 years old with history of Chest Pain, TECHNIQUE: XR chest 2V view(s) obtained. FINDINGS: The heart size is normal. The pulmonary vasculature is normal. The lungs are clear. Small right subpulmonic effusion not excluded. Findings appear similar to comparison. On the lateral projection there is some rounded density along the posterior lower lung margin. This w as present previously. IMPRESSION: 1. Small right subpulmonic effusion not excluded. 2. Posterior area of increased density is stable from 2022 [facility], , 10/11/2024 10:00 PM
[2024-10-11] MEDS ORDERED: NITROGLYCERIN SL TABS 0.4 MG TAB SUBLINGUAL PRN (23:11)
[2024-10-12] MEDS: NITROGLYCERIN OINT 1 INCH/GM PACKET TOPICAL SCH (00:07)
[2024-10-12] MEDS: ATORVASTATIN 80 MG TAB PO SCH (00:07)
[2024-10-12] MEDS: ASPIRIN 81 MG PO STA (00:07)
[2024-10-12] MEDS: HEPARIN SOD,PORK IN 0.45% NACL 25,000 UNIT in 0.45% NACL 1 250ML.BAG IV SCH (00:12)
[2024-10-12] MEDS: HEPARIN SODIUM 1,000 UN/ML (10ML VL) IV ONE (00:17)
[2024-10-12] MEDS: ALPRAZolam 1 MG TAB PO STA ×2 (02:40→02:48)
[2024-10-12 06:22] LABS: Mean Platelet Volume 10.5 fL (9.5-12.2); Platelet Count 158 10*3/uL (140-440)
--- NOTE | 2024-10-12 08:15 | P.HPIM ---
History of Present Illness This is a pleasant 79 years old female with past medical history of multiple medical problems including coronary artery disease status post triple bypass surgery about 4 to 5 years ago and chronic atrial fibrillation which is paroxy smal. She was on Eliquis at home. Presents because of chest pain of 1 day duration started a few hours prior to hospitalization in the middle of her chest radiating to the left arm and left shoulder associated with some numbness in the left hand. Pain was 9/10 in severity on admission currently 0/10. No dyspnea or coughing. No other GI/ symptoms. Yesterday she had diarrhea all day but looks. This morning we will continue to monitor. She denies smoking alcohol or illicit drug. She is mildly bradycardic but blood pressure is stable and afebrile Labs showing unremarkable CBC and INR. Creatinine is elevated 1.9 with baseline 1.0-1.5. D-dimer is high 0.77. Troponin is elevated 0.4, 5.3 and 6.7. proBNP is high at 4130 EKG showing sinus bradycardia at [address]-T changes Chest x-ray showing a small right subpulmonic effusion on the lateral view there is rounded density along the posterior lower lung margin this was seen on previously. Review of Systems Review of systems CONSTITUTIONAL: No fever, no malaise, no fatigue. HEENT: No recent visual problems or hearing problems. Denied any sore throat. CARDIOVASCULAR: No orthopnea, PND, no palpitations, no syncope. PULMONARY: No shortness of breath, no cough, no hemoptysis. GASTROINTESTINAL: No diarrhea, no nausea, no vomiting, no abdominal pain. Normoactive bowel sounds. NEUROLOGICAL: No headaches, no weakness, no numbness. HEMATOLOGICAL: Denies any bleeding or petechiae. GENITOURINARY: Denies any burning micturition, frequency, or urgency. MUSCULOSKELETAL/RHEUMATOLOGICAL: Denies any joint pain, swelling, or any muscle pain. ENDOCRINE: Denies any polyuria or polydipsia. Past Medical History Past Medical History: Coronary Artery Disease (CAD), Cancer, Hyperlipidemia, Hypertension, Memory Impairment, Myocardial Infarction (MS), Osteoarthritis (OA) Additional Past Medical History / Comment(s): 01/25/21 CABG X3 Last Myocardial Infarction Date:: 01/21/21 History of Any Multi-Drug Resistant Organisms: None Reported Past Surgical History: Appendectomy, Bladder Surgery, Bowel Resection, Breast Surgery, Cholecystectomy, Coronary Bypass/CABG, Hysterectomy, Orthopedic Surgery, Tubal Ligation Additional Past Surgical History / Comment(s): cataractsurgery x2 with lens implants, masectomy on right breast, bowel resection with colostomy and reversal, bladder suspension, left knee replacement, skin cancer removed from right ear Past Anesthesia/Blood Transfusion Reactions: No Reported Reaction Past Psychological History: No Psychological Hx Reported, Depression Smoking Status: Former smoker, Unknown if ever smoked Past Alcohol Use History: None Reported Past Drug Use History: None Reported - Past Family History Father Family Medical History: AFIB, Congestive Heart Failure (CHF) Mother Family Medical History: Cancer Additional Family Medical History / Comment(s): breast cancer with mets Medications and Allergies Home Medications Medication Instructions Recorded Confirmed Type Cholecalciferol [Vitamin D3 (25 25 mcg PO DAILY 01/21/21 10/11/24 History Mcg = 1000 Iu)] ALPRAZolam [Xanax] 1 mg PO BID 03/31/21 10/11/24 History Amitriptyline HCl [Elavil] 20 mg PO HS 01/19/23 10/11/24 History Atorvastatin [Lipitor] 40 mg PO HS 01/19/23 10/11/24 History Ezetimibe [Zetia] 10 mg PO HS 01/19/23 10/11/24 History Furosemide [Lasix] 20 mg PO DAILY 01/19/23 10/11/24 History Potassium Chloride ER [K-Dur 20] 20 meq PO DAILY 01/19/23 10/11/24 History Sertraline [Zoloft] 100 mg PO DAILY 01/19/23 10/11/24 History Apixaban [Eliquis] 5 mg PO BID #60 tab 01/23/23 10/11/24 Rx Aspirin 81 mg PO DAILY #30 tab 01/23/23 10/11/24 Rx Fluticasone Nasal [place] [Flonase 2 spray EA NOSTRIL DAILY ml 01/25/23 10/11/24 Rx Nasal [place]] Empagliflozin [Jardiance] 12.5 mg PO DAILY 10/11/24 10/11/24 History Metoprolol Tartrate [Lopressor] 12.5 mg PO DAILY 10/11/24 10/11/24 History methIMAzole [Tapazole] 2.5 mg PO DAILY 10/11/24 10/11/24 History ramipriL [Altace] 2.5 mg PO DAILY 10/11/24 10/11/24 History Allergies Allergy/AdvReac Type Severity Reaction Status Date / Time No Known Allergies Allergy Verified 10/11/24 20:42 Physical Exam Vitals: Vital Signs Temp Pulse Resp BP Pulse Ox 10/12/24 06:00 59 L 16 119/57 98 10/12/24 04:08 54 L 16 127/53 10/12/24 02:00 56 L 19 143/50 97 10/12/24 01:00 56 L 16 142/50 99 10/12/24 00:30 60 15 128/46 95 10/12/24 00:00 59 L 22 135/50 97 10/11/24 23:30 59 L 18 136/48 96 10/11/24 23:00 65 20 128/44 97 10/11/24 22:12 68 19 120/38 94 L 10/11/24 21:45 68 16 96 10/11/24 21:30 64 15 117/41 97 10/11/24 20:37 98.5 F 77 19 95/69 98 Intake and Output 10/11/24 10/12/24 10/12/24 22:59 06:59 14:59 Intake Total 39.978 Balance 39.978 Intake: Intake, IV Titration 39.978 Amount Heparin Sod,Pork in 0.45% 39.978 NaCl 25,000 unit In 0.45 % NaCl 1 250ml.bag @ 12 UNITS/KG/HR 6.042 mls/hr IV .Q24H [facility] Rx#: [id number] Other: Weight 50.349 kg GENERAL: The patient is alert and oriented x3, not in any acute distress. Well developed, well nourished. HEENT: Pupils are round and equally reacting to light. EOMI. No scleral icterus. No conjunctival pallor. Normocephalic, atraumatic. No pharyngeal erythema. No thyromegaly. CARDIOVASCULAR: S1 and S2 present. No murmurs, rubs, or gallops. PULMONARY: Chest is clear to auscultation, no wheezing , no crackles. ABDOMEN: Soft, nontender, nondistended, normoactive bowel sounds. No palpable organomegaly. MUSCULOSKELETAL: No joint swelling or deformity. EXTREMITIES: No cyanosis, clubbing, or pedal edema. NEUROLOGICAL: Gross neurological examination did not reveal any focal deficits. SKIN: No rashes. no petechiae. Results CBC & Chem 7: 10/12/24 06:13 10/11/24 21:11 Labs: Abnormal Lab Results - Last 24 Hours (Table) 10/11/24 10/11/24 10/11/24 Range/Units 21:11 21:11 21:11 Lymphocytes # 0.46 L (0.90-5.00) 10*3/uL Eosinophils # 0.03 L (0.04-0.35) 10*3/uL APTT (22.0-30.0) sec D-Dimer 0.77 H (<0.60) mg/L FEU Carbon Dioxide 19 L (22-30) mmol/L BUN 23 H (7-17) mg/dL Creatinine 1.93 H (0.52-1.04) mg/dL Glucose 135 H (74-99) mg/dL Troponin I (0.000-0.034) ng/mL Total Protein 6.1 L (6.3-8.2) g/dL 10/11/24 10/12/24 10/12/24 Range/Units 21:11 00:16 02:28 Lymphocytes # (0.90-5.00) 10*3/uL Eosinophils # (0.04-0.35) 10*3/uL APTT (22.0-30.0) sec D-Dimer (<0.60) mg/L FEU Carbon Dioxide (22-30) mmol/L BUN (7-17) mg/dL Creatinine (0.52-1.04) mg/dL Glucose (74-99) mg/dL Troponin I 0.497 H* 5.310 H* 6.760 H* (0.000-0.034) ng/mL Total Protein (6.3-8.2) g/dL 10/12/24 Range/Units 06:13 Lymphocytes # (0.90-5.00) 10*3/uL Eosinophils # (0.04-0.35) 10*3/uL APTT 45.2 H (22.0-30.0) sec D-Dimer (<0.60) mg/L FEU Carbon Dioxide (22-30) mmol/L BUN (7-17) mg/dL Creatinine (0.52-1.04) mg/dL Glucose (74-99) mg/dL Troponin I (0.000-0.034) ng/mL Total Protein (6.3-8.2) g/dL Assessment and Plan Assessment: Non-STEMI Acute kidney injury on CKD stage III Coronary artery disease status post triple bypass procedure few years ago Paroxysmal atrial fibrillation on Eliquis at home Hypertension Hyperlipidemia Memory impairment Osteoarthritis History of depression Plan: Continue with heparin drip Hold Eliquis Resume and continue with aspirin Cardiology team consult Check echocardiogram Labs and medication were reviewed.. Continue same treatment. Continue with symptomatic treatment. Resume home medication. Monitor labs and vitals. DVT and GI prophylaxis. Further recommendations as per clinical course of the patient DVT prophylaxis: heparin GI Prophylaxis: Pepcid PT/OT: Pending Prognosis is guarded
[2024-10-12] MEDS ORDERED: ASPIRIN 325 MG TAB PO SCH (09:00)
[2024-10-12 09:01] LABS: African American GFR (CKD) 36 (>60 ml/min/1.73 sqM); Non-African American GFR(CKD) 31 (>60 ml/min/1.73 sqM)
[2024-10-12] MEDS: ASPIRIN 81 MG PO SCH (09:22)
[2024-10-12] MEDS: POTASSIUM CHLORIDE ER 20 MEQ TAB.ER PO SCH (09:23)
[2024-10-12] MEDS: lisinopriL 10 MG TAB PO SCH (09:23)
[2024-10-12] MEDS: SODIUM CHLORIDE 0.9% 1,000 ML IV SCH (09:24)
[2024-10-12] MEDS ORDERED: AMOXIC-POT CLAV 875-125MG 1 EACH TAB PO SCH (10:15)
[2024-10-12 10:39] LABS: Appearance,Urine Clear (Clear); Bilirubin,Urine Negative (Negative); Blood,Urine Negative (Negative); Color,Urine Yellow; Glucose,Urine (UA) 4+ (Negative); Ketones,Urine 1+ (Negative); Leukocyte Esterase,Urine Moderate (Negative); Mucus,Urine Rare /hpf; Nitrite,Urine Negative (Negative); PH, Urine 5.5 (5.0-8.0); Protein,Urine Negative (Negative); RBC,Urine 1 /hpf (0-5); Specific Gravity,Urine 1.025 (1.001-1.035); Squamous Epithelial Cell,Urine <1 /hpf (0-4); Urobilinogen,Urine <2.0 mg/dL (<2.0); WBC,Urine 7 /hpf (0-5)
[2024-10-12] MEDS: METOPROLOL TARTRATE 25 MG TAB PO SCH (10:52)
[2024-10-12] MEDS: MORPHINE SULFATE 4 MG/ML SYRINGE IV PRN (11:00)
[2024-10-12 11:26] LABS: Chol/HDL Ratio 2.77 Ratio; LDL Cholesterol,Calculated 56.3 mg/dL (0.0-131.0)
--- NOTE | 2024-10-12 11:41 | CA ---
Transthoracic Echo Report Name: Jenny Larkin Age: 79 Gender: F : 1945 Exam Date: 10/12/2024 08:07 Exam Location: [facility] Ht (in): 59 Wt (lb): 111 Ordering Physician: Alfred Holloway DO Attending/Referring Phys: [id number], [facility] Nurse Chana Mercado RDCS Procedure CPT: Indications: nstemi Cardiac Hx: Technical Quality: Fair Contrast 1: Definity Total Dose (mL): 59 Contrast 2: Total Dose (mL): MEASUREMENTS (Male / Female) Normal Values 2D ECHO LV Diastolic Diameter PLAX 4.8 cm 4.2 - 5.9 / 3.9 - 5.3 cm LV Systolic Diameter PLAX 4.4 cm IVS Diastolic Thickness 1.0 cm 0.6 - 1.0 / 0.6 - 0.9 cm LVPW Diastolic Thickness 0.9 cm 0.6 - 1.0 / 0.6 - 0.9 cm LV Relative Wall Thickness 0.4 RV Internal Dim ED PLAX 2.7 cm LVOT Diameter 1.5 cm LA Systolic Diameter LX 2.9 cm 3.0 - 4.0 / 2.7 - 3.8 cm LV Diastolic Volume MOD BP 121.9 cm??? 67 - 155 / 56 - 104 cm??? LV Systolic Volume MOD BP 79.1 cm??? 22 - 58 / 19 - 49 cm??? LV Ejection Fraction MOD BP 35.1 % >= 55 % LV Diastolic Volume MOD 4C 133.6 cm??? LV Systolic Volume MOD 4C 86.9 cm??? LV Ejection Fraction MOD 4C 34.9 % LV Diastolic Length 4C 8.1 cm LV Systolic Length 4C 7.6 cm LV Diastolic Volume MOD 2C 103.9 cm??? LV Systolic Volume MOD 2C 68.0 cm??? LV Ejection Fraction MOD 2C 34.6 % LV Diastolic Length 2C 8.8 cm LV Systolic Length 2C 8.2 cm LA Volume 46.9 cm??? 18 - 58 / 22 - 52 cm??? LA Volume Index 32.3 cm???/m??? 16 - 28 cm???/m??? DOPPLER AV Peak Velocity 416.2 cm/s AV Peak Gradient 69.3 mmHg AV Mean Velocity 350.3 cm/s AV Mean Gradient 49.6 mmHg AV Velocity Time Integral 208.0 cm AI Peak Velocity 431.3 cm/s AI Peak Gradient 74.4 mmHg AI Pressure Half Time 554.3 ms LVOT Peak Velocity 100.1 cm/s LVOT Peak Gradient 4.0 mmHg LVOT Velocity Time Integral 26.2 cm LVOT Stroke Volume 44.9 cm??? LVOT Stroke Volume Index 31.3 ml/m??? AV Area Cont Eq vti 0.2 cm??? AV Area Cont Eq pk 0.4 cm??? MV Peak Velocity 125.2 cm/s MV Peak Gradient 6.3 mmHg MV Mean Velocity 60.7 cm/s MV Mean Gradient 1.8 mmHg MV Velocity Time Integral 30.5 cm MV Area PHT 2.1 cm??? Mitral E Point Velocity 51.0 cm/s Mitral A Point Velocity 102.0 cm/s Mitral E to A Ratio 0.5 MV Deceleration Time 341.8 ms TR Peak Velocity 161.0 cm/s TR Peak Gradient 10.4 mmHg Right Atrial Pressure 5.0 mmHg Pulmonary Artery Systolic Pressu 15.4 mmHg Right Ventricular Systolic Press 15.4 mmHg FINDINGS Left Ventricle Left ventricular ejection fraction is estimated at 35 to 40% anteroapical and anterolateral severe hypokinesis to akinesis.left ventricular cavity size normal. . Right Ventricle Normal right ventricular size. Right ventricular systolic pressure within normal limits. Right Atrium Normal right atrial size. Left Atrium Mildly increased left atrial volume. Mitral Valve Mitral annular calcification. No mitral stenosis. Mild to moderate mitral regurgitation. Aortic Valve Trileaflet aortic valve. Thickened aortic valve without stenosis. Mild mild to moderate aortic regurgitation. Tricuspid Valve Structurally normal tricuspid valve. No tricuspid stenosis. Mild tricuspid regurgitation. Pulmonic Valve Pulmonic valve not well visualized. No pulmonic stenosis. No pulmonic regurgitation. Pericardium No pericardial effusion. Aorta Normal size aortic root and proximal ascending aorta. CONCLUSIONS 1. Moderately to severely impaired left ventricular systolic function with segmental wall motion abnormality 2. Mild to moderate mitral and aortic regurgitation 3. Mild tricuspid regurgitation Definity ECHO contrast used for improved visualization of the endocardial borders (inadequate visualization of two or more contiguous segments). Previewed by: Dr. Brian Hess MD (Electronically Signed) Final Date: 12 October 2024 11:40
[2024-10-12] MEDS: ALPRAZolam 0.5 MG TAB PO STA (11:58)
[2024-10-12] MEDS ORDERED: ALPRAZolam 0.25 MG TAB PO PRN (13:18)
--- NOTE | 2024-10-12 13:18 | P.CRDCN ---
History of Present Illness Consult date: 10/12/24 Reason for Consult (text): NSTEMI History of present illness: This is a 79-year-old female patient of Dr. Hess with past medical history of coronary artery disease status post three-vessel CABG with WESLEY to LAD, radial to OM1 and VG to PLB in 2020, ischemic cardiomyopathy with EF of 47% which is improved, paroxysmal atrial fibrillation hypertension, hyperlipidemia. We have been asked to evaluate the patient for NSTEMI. Patient states that she came into the hospital due to chest pain. She has taken 2 nitroglycerin and the pain is completely gone now. Prior to that all day she had had diarrhea. She states she was walking into the living room and sat down to eat and then the pain started in her chest and she also felt her heart pounding like it was coming out of her chest. She remains pain-free at this time. Patient is seen in the emergency center waiting for bed on the cardiac stepdown unit. She has been started on a heparin drip and Eliquis is on hold. Blood pressure 137/54, heart rate 58, pulse ox 100% on room air. Discussed with patient option of cardiac catheterization and she is agreeable to move forward with this. -EKG: Sinus rhythm with left bundle branch block. -Chest x-ray: Small right subpulmonic effusion not excluded. Posterior area of increased density is stable from 2022. -Echocardiogram performed 10/12/2024 revealed EF 35 to 40%, moderate to severe impaired left ventricular systolic function with segmental wall motion abnormality. Mild to moderate mitral and aortic regurgitation. Mild tricuspid regurgitation. Definity used but an adequate visualization of 2 or more contiguous segments. -Laboratory studies: Troponin 0.497, 5.31, 6.76. Triglycerides 105, cholesterol 121, LDL 56. BUN 23 creatinine 1.93. D-dimer 0.77. -Home cardiac medications: Eliquis 5 mg twice daily, aspirin 81 mg daily, atorvastatin 40 mg at bedtime, Jardiance 12.5 mg daily, Zetia 10 mg at bedtime, Lasix 20 mg daily, Lopressor 12.5 mg daily, potassium chloride 20 mill equivalents daily, ramipril 2.5 mg daily. -Lexiscan Cardiolite stress test performed in the office on 08/02/2024: Nondiagnostic electrocardiographic stress testing. Abnormal myocardial perfusion imaging with evidence of prior CT involving the apex, lateral wall and distal inferior wall with segmental wall motion abnormalities on the gated SPECT images. No evidence of significant stress-induced ischemia. Review Of Systems: At the time of my exam: CONSTITUTIONAL: Denies fever or chills. HEENT: Denies blurred vision, vision changes, or eye pain. Denies hemoptysis CARDIOVASCULAR: Denies chest pain. Denies orthopnea. Denies PND. Denies p alpitations RESPIRATORY: Denies shortness of breath. GASTROINTESTINAL: Denies abdominal pain. Denies nausea or vomiting. HEMATOLOGIC: Denies bleeding disorders. GENITOURINARY: Denies any blood in urine. SKIN: Denies puritis. Denies rash. Physical examination: Gen: This is 79-year-old female in no acute distress. VS: reviewed HEENT: Head is atraumatic, normocephalic. Pupils equal, round. Sclerae is anicteric. NECK: Supple. No JVD. LUNGS: Clear to auscultation. No wheezes or rhonchi. No intercostal retractions. HEART: Regular rate and rhythm. Systolic murmur. ABDOMEN: Soft No tenderness. EXTREMITIES: No pedal edema. No calf tenderness. NEUROLOGICAL: Patient is awake, alert and oriented x3. Assessment: NSTEMI History of coronary artery disease with previous CABG Ischemic cardiomyopathy with previous EF of 33% and improved to 47%, currently 35 to 40% on this hospitalization Paroxysmal atrial fibrillation currently in sinus rhythm Hypertension Hyperlipidemia Plan: Resume patient's home cardiac medications with the following changes Hold Eliquis Continue patient on heparin drip Obtain CBC and BMP in the morning Start patient on IV fluids 0.9 normal saline at 75 cc/h Schedule patient for cardiac catheterization tomorrow with Dr. Hess if renal function is improved Further recommendations to follow based upon clinical course Thank you kindly for this consultation. Nurse practitioner note has been reviewed, I agree with documented findings and plan of care. Patient was seen and examined. Past Medical History Past Medical History: Coronary Artery Disease (CAD), Cancer, Hyperlipidemia, Hypertension, Memory Impairment, Myocardial Infarction (CT), Osteoarthritis (OA) Additional Past Medical History / Comment(s): 01/25/21 CABG X3 Last Myocardial Infarction Date:: 01/21/21 History of Any Multi-Drug Resistant Organisms: None Reported Past Surgical History: Appendectomy, Bladder Surgery, Bowel Resection, Breast Surgery, Cholecystectomy, Coronary Bypass/CABG, Hysterectomy, Orthopedic Surgery, Tubal Ligation Additional Past Surgical History / Comment(s): cataractsurgery x2 with lens implants, masectomy on right breast, bowel resection with colostomy and reversal, bladder suspension, left knee replacement, skin cancer removed from right ear Past Anesthesia/Blood Transfusion Reactions: No Reported Reaction Past Psychological History: No Psychological Hx Reported, Depression Smoking Status: Former smoker, Unknown if ever smoked Past Alcohol Use History: None Reported Past Drug Use History: None Reported - Past Family History Father Family Medical History: AFIB, Congestive Heart Failure (CHF) Mother Family Medical History: Cancer Additional Family Medical History / Comment(s): breast cancer with mets Medications and Allergies Home Medications Medication Instructions Recorded Confirmed Type Cholecalciferol [Vitamin D3 (25 25 mcg PO DAILY 01/21/21 10/11/24 History Mcg = 1000 Iu)] ALPRAZolam [Xanax] 1 mg PO BID 03/31/21 10/11/24 History Amitriptyline HCl [Elavil] 20 mg PO HS 01/19/23 10/11/24 History Atorvastatin [Lipitor] 40 mg PO HS 01/19/23 10/11/24 History Ezetimibe [Zetia] 10 mg PO HS 01/19/23 10/11/24 History Furosemide [Lasix] 20 mg PO DAILY 01/19/23 10/11/24 History Potassium Chloride ER [K-Dur 20] 20 meq PO DAILY 01/19/23 10/11/24 History Sertraline [Zoloft] 100 mg PO DAILY 01/19/23 10/11/24 History Apixaban [Eliquis] 5 mg PO BID #60 tab 01/23/23 10/11/24 Rx Aspirin 81 mg PO DAILY #30 tab 01/23/23 10/11/24 Rx Fluticasone Nasal Powers [Flonase 2 spray EA NOSTRIL DAILY ml 01/25/23 10/11/24 Rx Nasal Powers] Empagliflozin [Jardiance] 12.5 mg PO DAILY 10/11/24 10/11/24 History Metoprolol Tartrate [Lopressor] 12.5 mg PO DAILY 10/11/24 10/11/24 History methIMAzole [Tapazole] 2.5 mg PO DAILY 10/11/24 10/11/24 History ramipriL [Altace] 2.5 mg PO DAILY 10/11/24 10/11/24 History Allergies Allergy/AdvReac Type Severity Reaction Status Date / Time wheat Allergy Unknown Verified 10/12/24 10:30 diary Allergy Unknown Uncoded 10/12/24 10:30 Physical Exam Vitals: Vital Signs Temp Pulse Resp BP Pulse Ox 10/12/24 10:59 125 H 18 117/61 100 10/12/24 09:00 58 L 18 137/54 100 10/12/24 08:00 59 L 16 118/44 99 10/12/24 06:00 59 L 16 119/57 98 10/12/24 04:08 54 L 16 127/53 10/12/24 02:00 56 L 19 143/50 97 10/12/24 01:00 56 L 16 142/50 99 10/12/24 00:30 60 15 128/46 95 10/12/24 00:00 59 L 22 135/50 97 10/11/24 23:30 59 L 18 136/48 96 10/11/24 23:00 65 20 128/44 97 10/11/24 22:12 68 19 120/38 94 L 10/11/24 21:45 68 16 96 10/11/24 21:30 64 15 117/41 97 10/11/24 20:37 98.5 F 77 19 95/69 98 Intake and Output 10/11/24 10/12/24 10/12/24 22:59 06:59 14:59 Intake Total 39.978 Balance 39.978 Intake: Intake, IV Titration 39.978 Amount Heparin Sod,Pork in 0.45% 39.978 NaCl 25,000 unit In 0.45 % NaCl 1 250ml.bag @ 12 UNITS/KG/HR 6.042 mls/hr IV .Q24H [facility] Rx#: [id number] Other: Weight 50.349 kg Results 10/12/24 06:13 10/12/24 06:13 Cardiac Enzymes 10/11/24 10/11/24 10/12/24 Range/Units 21:11 21:11 00:16 AST 28 (14-36) U/L Troponin I 0.497 H* 5.310 H* (0.000-0.034) ng/mL 10/12/24 Range/Units 02:28 AST (14-36) U/L Troponin I 6.760 H* (0.000-0.034) ng/mL Coagulation 10/11/24 10/12/24 Range/Units 21:11 06:13 PT 10.5 (10.0-12.5) sec APTT 26.7 45.2 H (22.0-30.0) sec Lipids 10/12/24 Range/Units 06:13 Triglycerides 105.00 (0.00-149.00) mg/dL Cholesterol 121.00 (0.00-200.00) mg/dL HDL Cholesterol 43.70 (40.00-60.00) mg/dL Cholesterol/HDL Ratio 2.77 Ratio CBC 10/11/24 10/12/24 Range/Units 21:11 06:13 WBC 6.89 (4.50-10.00) 10*3/uL RBC 4.42 (4.10-5.20) 10*6/uL Hgb 12.7 (12.0-15.0) g/dL Hct 37.6 (37.2-46.3) % Plt Count 168 158 (140-440) 10*3/uL Comprehensive Metabolic Panel 10/11/24 10/12/24 Range/Units 21:11 06:13 Sodium 137 (137-145) mmol/L Potassium 4.1 (3.5-5.1) mmol/L Chloride 105 (98-107) mmol/L Carbon Dioxide 19 L (22-30) mmol/L BUN 23 H (7-17) mg/dL Creatinine 1.93 H 1.59 H (0.52-1.04) mg/dL Glucose 135 H (74-99) mg/dL Calcium 9.5 (8.4-10.2) mg/dL AST 28 (14-36) U/L ALT 14 (4-34) U/L Alkaline Phosphatase 89 (38-126) U/L Total Protein 6.1 L (6.3-8.2) g/dL Albumin 4.0 (3.5-5.0) g/dL Current Medications Generic Name Dose Route Start Last Admin Trade Name Freq PRN Reason Stop Dose Admin Alprazolam 0.5 mg 10/12/24 10:03 Alprazolam 0.5 Mg Tab PO BID PRN Anxiety Amitriptyline HCl 20 mg 04/23/25 21:00 Amitriptyline Hcl 10 Mg Tab PO HS [facility] Aspirin 81 mg 10/12/24 09:00 10/12/24 09:22 Aspirin 81 Mg PO 81 mg DAILY [facility] Administration Atorvastatin Calcium 80 mg 10/11/24 23:15 10/12/24 09:23 Atorvastatin 80 Mg Tab PO 80 mg DAILY [facility] Administration Dapagliflozin 5 mg 10/13/24 09:00 Dapagliflozin Propanediol 5 Mg Tablet PO DAILY [facility] Ezetimibe 10 mg 10/12/24 21:00 Ezetimibe 10 Mg Tab PO HS [facility] Furosemide 20 mg 10/13/24 09:00 Furosemide 20 Mg Tab PO DAILY [facility] Heparin Sodium/Sodium Chloride 250 mls @ 6.042 mls/hr 10/11/24 23:15 10/12/24 06:49 25,000 unit/ Sodium Chloride IV 12 units/kg/hr .Q24H [facility] 6.042 mls/hr Titration Protocol 12 UNITS/KG/HR Sodium Chloride 1,000 mls @ 75 mls/hr 10/12/24 08:45 10/12/24 09:24 Saline 0.9% IV 75 mls/hr .[id number] [facility] Administration Lisinopril 10 mg 10/12/24 09:00 10/12/24 09:23 Lisinopril 10 Mg Tab PO 10 mg DAILY [facility] Administration Methimazole 2.5 mg 10/13/24 09:00 Methimazole 5 Mg Tab PO DAILY [facility] Metoprolol Tartrate 25 mg 10/12/24 09:00 10/12/24 10:52 Metoprolol Tartrate 25 Mg Tab PO 25 mg BID [facility] Administration Morphine Sulfate 4 mg 10/11/24 23:11 10/12/24 11:00 Morphine Sulfate 4 Mg/Ml Syringe IV 4 mg Q4HR PRN Administration Chest Pain Nitroglycerin 0.4 mg 10/11/24 23:11 Nitroglycerin Sl Tabs 0.4 Mg Tab SUBLINGUAL Q5M PRN Chest Pain Nitroglycerin 1 inch 10/12/24 00:00 10/12/24 11:58 Nitroglycerin Oint 1 Inch/Gm Packet TOPICAL 1 inch Q6HR [facility] Administration Potassium Chloride 20 meq 10/12/24 09:00 10/12/24 09:23 Potassium Chloride Er 20 Meq Tab.Er PO 20 meq DAILY [facility] Administration Sertraline HCl 100 mg 10/13/24 09:00 Sertraline 100 Mg Tab PO DAILY [facility] Intake and Output 10/11/24 10/12/24 10/12/24 22:59 06:59 14:59 Intake Total 39.978 Balance 39.978 Intake: Intake, IV Titration 39.978 Amount Heparin Sod,Pork in 0.45% 39.978 NaCl 25,000 unit In 0.45 % NaCl 1 250ml.bag @ 12 UNITS/KG/HR 6.042 mls/hr IV .Q24H [facility] Rx#: [id number] Other: Weight 50.349 kg 10/12/24 06:13 10/12/24 06:13
[2024-10-12] MEDS: AMITRIPTYLINE HCL 10 MG TAB PO SCH (19:47)
[2024-10-12] MEDS: EZETIMIBE 10 MG TAB PO SCH (19:47)
[2024-10-12] MEDS: ALPRAZolam 0.5 MG TAB PO PRN (23:00)
[2024-10-13 04:20] LABS: Carbon Dioxide 22 mmol/L (22-30); Chloride 102 mmol/L (98-107); Glucose 78 mg/dL (74-99); Potassium 4.4 mmol/L (3.5-5.1); Sodium 135 mmol/L (137-145)
[2024-10-13 04:21] LABS: African American GFR (CKD) 43 (>60 ml/min/1.73 sqM); Anion Gap 11 mmol/L; Blood Urea Nitrogen 20 mg/dL (7-17); Calcium 9.1 mg/dL (8.4-10.2); Non-African American GFR(CKD) 38 (>60 ml/min/1.73 sqM)
[2024-10-13] MEDS: methIMAzole 5 MG TAB PO SCH (06:14)
[2024-10-13] MEDS: ASPIRIN 325 MG TAB PO ONE (06:14)
[2024-10-13] MEDS: DAPAGLIFLOZIN PROPANEDIOL 5 MG TABLET PO SCH (06:14)
[2024-10-13] MEDS: ATORVASTATIN 80 MG TAB PO ONE (06:14)
[2024-10-13] MEDS: SERTRALINE 100 MG TAB PO SCH (06:15)
[2024-10-13] MEDS: FUROSEMIDE 20 MG TAB PO SCH (06:15)
[2024-10-13 06:41] LABS: Basophils # (A) 0.01 10*3/uL (0.00-0.10); Basophils % (A) 0.2 %; Eosinophils # (A) 0.06 10*3/uL (0.04-0.35); Eosinophils % (A) 1.1 %; HCT 37.2 % (37.2-46.3); HGB 12.2 g/dL (12.0-15.0); Lymphocytes # (A) 0.59 10*3/uL (0.90-5.00); Lymphocytes % (A) 10.9 %; MCH 29.2 pg (27.0-32.0); MCHC 32.8 g/dL (32.0-37.0); Monocytes % (A) 9.3 %; Neutrophils # (A) 4.22 10*3/uL (1.80-7.70); Neutrophils % (A) 78.3 %; Platelet Count 143 10*3/uL (140-440); RBC 4.18 10*6/uL (4.10-5.20); RDW 12.9 % (11.5-14.5); WBC 5.39 10*3/uL (4.50-10.00)
--- NOTE | 2024-10-13 08:44 | P.PN ---
Subjective This is a pleasant 79 years old female with past medical history of multiple medical problems including coronary artery disease status post triple bypass surgery about 4 to 5 years ago and chronic atrial fibrillation which is paroxysmal. She was on Eliquis at home. Presents because of chest pain of 1 day duration started a few hours prior to hospitalization in the middle of her chest radiating to the left arm and left shoulder associated with some numbness in the left hand. Pain was 9/10 in severity on admission currently 0/10. No dyspnea or coughing. No other GI/ symptoms. Yesterday she had diarrhea all day but looks. This morning we will continue to monitor. She denies smoking alcohol or illicit drug. She is mildly bradycardic but blood pressure is stable and afebrile Labs showing unremarkable CBC and INR. Creatinine is elevated 1.9 with baseline 1.0-1.5. D-dimer is high 0.77. Troponin is elevated 0.4, 5.3 and 6.7. proBNP is high at 4130 EKG showing sinus bradycardia at [address]-T changes Chest x-ray showing a small right subpulmonic effusion on the lateral view there is rounded density along the posterior lower lung margin this was seen on previously. 10/13 No chest pain Creatinine improving down to 1.3 well and she is on normal saline 75 mL/h Plan for cardiac cath today per laundry clerk if renal improvement is acceptable She remains on heparin drip and aspirin Objective - Vital Signs Vital signs: Vital Signs Temp 97.6 F 10/13/24 04:00 Pulse 56 L 10/13/24 04:00 Resp 16 10/13/24 04:00 BP 119/67 10/13/24 04:00 Pulse Ox 99 10/13/24 04:00 FiO2 Intake & Output 10/12/24 10/13/24 10/13/24 18:59 06:59 18:59 Intake Total 382.004 Output Total 200 Balance 182.004 Weight 50.6 kg Intake: Intake, IV Titration 142.004 Amount Heparin Sod,Pork in 0.45% 142.004 NaCl 25,000 unit In 0.45 % NaCl 1 250ml.bag @ 12 UNITS/KG/HR 6.042 mls/hr IV .Q24H [facility] Rx#: [id number] Oral 240 Output: Urine 200 Other: Voiding Method Bedside Commode # Voids 1 1 - Exam GENERAL: The patient is alert and oriented x3, not in any acute distress. Well developed, well nourished. HEENT: Pupils are round and equally reacting to light. EOMI. No scleral icterus. No conjunctival pallor. Normocephalic, atraumatic. No pharyngeal erythema. No thyromegaly. CARDIOVASCULAR: S1 and S2 present. No murmurs, rubs, or gallops. PULMONARY: Chest is clear to auscultation, no wheezing , no crackles. ABDOMEN: Soft, nontender, nondistended, normoactive bowel sounds. No palpable organomegaly. MUSCULOSKELETAL: No joint swelling or deformity. EXTREMITIES: No cyanosis, clubbing, or pedal edema. NEUROLOGICAL: Gross neurological examination did not reveal any focal deficits. SKIN: No rashes. no petechiae. - Labs CBC & Chem 7: 10/13/24 06:08 10/13/24 03:26 Labs: Abnormal Lab Results - Last 24 Hours (Table) 10/12/24 10/12/24 10/12/24 Range/Units 06:13 10:02 20:11 Lymphocytes # (0.90-5.00) 10*3/uL APTT 34.8 H (22.0-30.0) sec Sodium (137-145) mmol/L BUN (7-17) mg/dL Creatinine 1.59 H (0.52-1.04) mg/dL Urine Glucose (UA) 4+ H (Negative) Urine Ketones 1+ H (Negative) Ur Leukocyte Esterase Moderate H (Negative) Urine WBC 7 H (0-5) /hpf Urine Mucus Rare H (None) /hpf 10/13/24 10/13/24 10/13/24 Range/Units 03:26 03:26 06:08 Lymphocytes # 0.59 L (0.90-5.00) 10*3/uL APTT 38.6 H (22.0-30.0) sec Sodium 135 L (137-145) mmol/L BUN 20 H (7-17) mg/dL Creatinine 1.36 H (0.52-1.04) mg/dL Urine Glucose (UA) (Negative) Urine Ketones (Negative) Ur Leukocyte Esterase (Negative) Urine WBC (0-5) /hpf Urine Mucus (None) /hpf Assessment and Plan Assessment: Non-STEMI Acute kidney injury on CKD stage III Coronary artery disease status post triple bypass procedure few years ago Paroxysmal atrial fibrillation on Eliquis at home Hypertension Hyperlipidemia Memory impairment Osteoarthritis History of depression Plan: Continue with heparin drip Hold Eliquis Resume and continue with aspirin Cardiology team consult Check echocardiogram Continue with normal saline Plan for cardiac cath with laundry clerk Labs and medication were reviewed.. Continue same treatment. Continue with symptomatic treatment. Resume home medication. Monitor labs and vitals. DVT and GI prophylaxis. Further recommendations as per clinical course of the patient DVT prophylaxis: heparin GI Prophylaxis: Pepcid PT/OT: Pending Prognosis is guarded
[2024-10-13] MEDS: LIDOCAINE 1% INJ 10MG/ML (20 ML MDV) SQ ONE (09:21)
[2024-10-13] MEDS: HEPARIN SODIUM,PORCINE 10,000 UNIT in SODIUM CHLORIDE 0.9% 1,000 ML IRRIGATION PRN (09:22)
[2024-10-13] MEDS: IV FLUID CONTINUATION 1,000 ML IV ONE (09:22)
[2024-10-13] MEDS: fentaNYL (PF) 50 MCG/ML 2 ML AMP IVP ONE (09:22)
[2024-10-13] MEDS: HEPARIN SODIUM,PORCINE (1 ML) 2,500 UNIT in SODIUM CHLORIDE 0.9% 250 ML IRRIGATION PRN (09:23)
[2024-10-13] MEDS: MIDAZOLAM 2 MG/2 ML VIAL IVP ONE (09:26)
[2024-10-13] MEDS: IOPAMIDOL-370 100ML BTL INJ ONE ×2 (09:46→09:56)
[2024-10-13] MEDS ORDERED: RX INFO: IV CONTRAST WAS GIVEN 1 EACH MISC MISCELLANE PRN (10:14)
--- NOTE | 2024-10-13 10:26 | P.CARDCATH ---
Date of Procedure: 10/13/24 Description of Procedure: Cardiac Catheterization: The patient is a 79-year-old female with a known history of CAD, status post CABG, hypertension, hyperlipidemia and ischemic cardiomyopathy who presented with an episode of nausea, vomiting, chest discomfort and troponin elevation. She was evaluated by Dr. White. Recommendations were made regarding cardiac catheterization, the risks and the complications were discussed with the patient who is in full understanding and agreement. Procedure Description: Patient was brought to collaborative physician in fasting semi-sedated state after receiving Fentanyl and Benadryl achieiving moderate conscious sedated state. Using Xylocaine Anesthesia and modified Seldinger technique, a 6-Brazilian sheath was introduced in the left femoral artery using micropuncture technique. Subsequently, selective coronary angiography was performed using a 6-Brazilian 4 bend right Mary catheter and 3.5 bend left Mary catheter. Multiple views of the coronary artery including hemiaxial views were obtained. The right Mary was used to cannulate the WESLEY to the LAD and the SVG to the RCA. A 6 Brazilian LCB was used to cannulate the radial bypass to the OM. The 6 Brazilian pigtail catheter was used to cross the aortic valve and LVEDP was calculated. Following that, catheter and sheath were removed. Hemostasis was obtained with deployment of an Angio-Seal. There was no immediate complication. Patient was returned to room in stable condition. Findings: Fluoroscopy: Severe calcifications of the left main and the LAD was noted Left main: This is a short size vessel, bifurcating into LAD and left circumflex. The left main has a 99% stenosis in the proximal and mid segment LAD: This is a large size vessel, diffusely diseased with competitive flow in the midsegment of the WESLEY. The proximal LAD has a area of stenosis of 40 to 50%. The mid and distal vessel is small in caliber and diffusely diseased Left circumflex: This vessel is totally occluded proximally. Shortly after the takeoff there is a 99% stenosis in the vessel is totally occluded with no antegrade flow. There is small collaterals from the LAD toward the OM. RCA: This is a large size vessel, bifurcating distally to PDA and PLV. The proximal RCA has a 90% stenosis, calcified the PDA and PLV are patent. There is retrograde flow into the SVG to the PDA. SVG to the RCA: The proximal and distal anastomotic site are patent. The flow into the PDA is brisk WESLEY to the LAD: The distal anastomotic site is patent. The flow into the LAD is brisk. Radial bypass to the left circumflex OM: This graft is totally occluded proximally Left Ventriculogram: Not performed Hemodynamics: There was no gradient across the aortic valve, LVEDP was 12-14 mmHg Conclusion: 1. Calcified coronary arteries 2. Severe stenosis in the left main and occluded left circumflex proximally 3. Patent WESLEY to the LAD 4. Patent SVG to the PDA 5. Occluded radial bypass to the OM of unknown duration. Recommendations: In view of the findings, the calcifications in the anatomy I have recommended to optimize medical therapy. I do not feel that she is a candidate for intervention. Close follow-up of her LV systolic function will be needed. The findings and the recommendations were discussed with the patient and the family and they were in full understanding and agreement. Duration of sedation is 32 minutes.
[2024-10-13] MEDS: ISOSORBIDE MONONITRATE ER 30 MG TAB.ER.24H PO SCH (11:25)
[2024-10-13] MEDS: SODIUM CHLORIDE 0.9% 1,000 ML IV SCH (11:27)
[2024-10-13 11:55] LABS: African American GFR (CKD) 43 (>60 ml/min/1.73 sqM); Anion Gap 9 mmol/L; Blood Urea Nitrogen 20 mg/dL (7-17); Calcium 8.6 mg/dL (8.4-10.2); Carbon Dioxide 20 mmol/L (22-30); Chloride 106 mmol/L (98-107); Glucose 76 mg/dL (74-99); Non-African American GFR(CKD) 37 (>60 ml/min/1.73 sqM); Sodium 135 mmol/L (137-145)
[2024-10-13 12:06] LABS: Potassium 4.8 mmol/L (3.5-5.1)
[2024-10-13] MEDS: NITROGLYCERIN SL TABS 0.4 MG TAB SUBLINGUAL PRN (17:31)
[2024-10-13] MEDS: DEXTROSE 5% IN WATER 100 ML with AMIODARONE 150 MG IV ONE (18:10)
[2024-10-13] MEDS: MORPHINE SULFATE 4 MG/ML SYRINGE IVP STA (18:15)
[2024-10-13] MEDS: SODIUM CHLORIDE 0.9% 500 ML 500 ML IV ONE (18:15)
[2024-10-13 18:17] LABS: Glucose,Whole Blood 131 mg/dL (70-110)
[2024-10-13] MEDS: AMIODARONE 360 MG in DEXTROSE 5% IN WATER 200 ML IV ONE (18:25)
--- NOTE | 2024-10-13 18:58 | P.EN ---
A- team Indication: Chest pain, A-fib with RVR, hypotension Arrived on Scene to find: A 79-year-old female with past medical history of CAD, CABG, ischemic cardiomyopathy EF 47%, paroxysmal A-fib, anticoagulated, who came back earlier from cardiac [facility] where was found to have severe stenosis in the left main and occluded left circumflex proximally, patent WESLEY to the LAD, patent SVG to the PDA, occluded radial bypass to the OM of unknown duration, recommended medical management, patient was in distress, complaining of palpitations, pressure-like chest pain radiating to the left shoulder. Her blood pressure was not 90s over 50s, heart rate going up to 150s 170s, irregular. Dr. Nielsen was contacted, recommended cardioversion. Patient was cardioverted 75J, briefly for up to 10 seconds converted to sinus rhythm and went back up to 140s 150s. Dr. Nilesen notified again, recommended another cardioversion and amiodarone bolus followed by continuous infusion per protocol. Patient's heart rate shortly came down to 70s, it was decided to proceed with amiodarone bolus first, she was provided with amiodarone bolus per protocol, heart rate did not improve thus, she was cardioverted again at 120J, premedicated with 2 mg of IV morphine, heart rate improved to 120s, then 60s, fluctuating. Her blood pressure remained stable. Patient stated that her chest pain improved as well as shortness of breath. Dr. Nielsen was contacted by RN through [employer]. Patient seen and examined at bedside. Vital signs reviewed General: [In distress, nontoxic Derm: [warm], [dry] Head: [atraumatic], [normocephalic], [symmetric] Eyes: [EOMI], [no lid lag], [anicteric sclera] Mouth: [no lip lesion], [mucus membranes moist] Cardiovascular: Tachycardic, irregular Lungs: [CTA bilateral], [no rhonchi, no rales] , [no accessory muscle use] Abdominal: [soft], [ nontender to palpation], [no guarding], [no appreciable organomegaly] Ext: [no gross muscle atrophy], [no edema], [no contractures] Neuro: [ CN II-XI grossly intact], [no focal neuro deficits] Psych: [Alert], [oriented], [appropriate affect] Assessment: A-fib with RVR - Status post cardioversion x 2, status post amiodarone bolus - Continue amiodarone infusion 0.5 mg/min - Continue normal saline 75 cc/h, was provided with 500 cc bolus during rapid response - Cardiology following Disposition: Remain on 3 S. Notified: Dr. Nielsen patient's daughter A Total of 35minutes of critical care time was spent on the complex care of this patient.
[2024-10-13] MEDS: AMIODARONE 450 MG in DEXTROSE 5% IN WATER 250 ML IV SCH (23:25)
[2024-10-14 07:09] LABS: Mean Platelet Volume 10.8 fL (9.5-12.2); Platelet Count 149 10*3/uL (140-440)
[2024-10-14 07:22] LABS: African American GFR (CKD) 35 (>60 ml/min/1.73 sqM); Anion Gap 8 mmol/L; Blood Urea Nitrogen 21 mg/dL (7-17); Calcium 8.8 mg/dL (8.4-10.2); Carbon Dioxide 22 mmol/L (22-30); Chloride 107 mmol/L (98-107); Glucose 87 mg/dL (74-99); Non-African American GFR(CKD) 30 (>60 ml/min/1.73 sqM); Potassium 4.6 mmol/L (3.5-5.1); Sodium 137 mmol/L (137-145)
[2024-10-14] MEDS ORDERED: ISOSORBIDE MONONITRATE ER 30 MG TAB.ER.24H PO ONE (11:00)
[2024-10-14] MEDS ORDERED: SERTRALINE 100 MG TAB ONE (11:00)
[2024-10-14] MEDS ORDERED: DAPAGLIFLOZIN PROPANEDIOL 5 MG TABLET ONE (11:00)
[2024-10-14] MEDS ORDERED: methIMAzole 5 MG TAB ONE (11:00)
[2024-10-14] MEDS ORDERED: ASPIRIN 81 MG ONE (11:00)
[2024-10-14] MEDS ORDERED: APIXABAN 5 MG TAB ONE (11:00)
[2024-10-14] MEDS ORDERED: POTASSIUM CHLORIDE ER 20 MEQ TAB.ER PO ONE (11:00)
[2024-10-14] MEDS ORDERED: lisinopriL 10 MG TAB ONE (11:00)
[2024-10-14] MEDS ORDERED: FUROSEMIDE 20 MG TAB ONE (11:00)
[2024-10-14] MEDS ORDERED: ALPRAZolam 0.5 MG TAB ONE (11:00)
[2024-10-14] MEDS ORDERED: ATORVASTATIN 80 MG TAB ONE (11:00)
[2024-10-14] MEDS ORDERED: METOPROLOL TARTRATE 25 MG TAB ONE (11:00)
[2024-10-14] MEDS: APIXABAN 5 MG TAB PO SCH (11:26)
--- NOTE | 2024-10-14 12:37 | P.PN ---
Subjective Progress Note Date: 10/14/24 Reason for Consult (text): NSTEMI History of present illness: This is a 79-year-old female patient of Dr. Hess with past medical history of coronary artery disease status post three-vessel CABG with WESLEY to LAD, radial to OM1 and VG to PLB in 2020, ischemic cardiomyopathy with EF of 47% which is improved, paroxysmal atrial fibrillation hypertension, hyperlipidemia. We have been asked to evaluate the patient for NSTEMI. Patient states that she came into the hospital due to chest pain. She has taken 2 nitroglycerin and the pain is completely gone now. Prior to that all day she had had diarrhea. She states she was walking into the living room and sat down to eat and then the pain started in her chest and she also felt her heart pounding like it was coming out of her chest. She remains pain-free at this time. Patient is seen in the [facility] waiting for bed on the cardiac stepdown unit. She has been started on a heparin drip and Eliquis is on hold. Blood pressure 137/54, heart rate 58, pulse ox 100% on room air. Discussed with patient option of cardiac catheterization and she is agreeable to move forward with this. -EKG: Sinus rhythm with left bundle branch block. -Chest x-ray: Small right subpulmonic effusion not excluded. Posterior area of increased density is stable from 2022. -Echocardiogram performed 10/12/2024 revealed EF 35 to 40%, moderate to severe impaired left ventricular systolic function with segmental wall motion abnormality. Mild to moderate mitral and aortic regurgitation. Mild tricuspid regurgitation. Definity used but an adequate visualization of 2 or more contiguous segments. -Laboratory studies: Troponin 0.497, 5.31, 6.76. Triglycerides 105, cholesterol 121, LDL 56. BUN 23 creatinine 1.93. D-dimer 0.77. -Home cardiac medications: Eliquis 5 mg twice daily, aspirin 81 mg daily, magali rvastatin 40 mg at bedtime, Jardiance 12.5 mg daily, Zetia 10 mg at bedtime, Lasix 20 mg daily, Lopressor 12.5 mg daily, potassium chloride 20 mill equivalents daily, ramipril 2.5 mg daily. -Lexiscan Cardiolite stress test performed in the office on 08/02/2024: Nondiagnostic electrocardiographic stress testing. Abnormal myocardial perfusion imaging with evidence of prior [place] involving the apex, lateral wall and distal inferior wall with segmental wall motion abnormalities on the gated SPECT images. No evidence of significant stress-induced ischemia. 10/14 Patient seen and examined on the cardiac stepdown unit. Yesterday, patient underwent cardiac catheterization with Dr. Hess which revealed calcified coronary arteries, severe stenosis in the left main and occluded left circumflex proximally, patent WESLEY to LAD, patent SVG to the PDA, occluded radial bypass to the OM of unknown duration. Recommendations for medical management as patient is not a good candidate for intervention. Yesterday evening, A-Team for A-fib with RVR in the 150s to 170s. Dr. Nielsen was contacted and recommended cardioversion which was done at the bedside at 75 J and patient converted to sinus rhythm briefly went back to 140 to 150 bpm. Recommendations were then for another cardioversion and start patient on amiodarone bolus and drip. Patient was again cardioverted with 120 J. At the time of our evaluation, patient is in a sinus rhythm. The amiodarone infiltrated in her arm and was restarted in a n ew location. Plan at this time is to continue IV amiodarone and transition to oral tomorrow and continue beta-maría. Blood pressure 129/64, heart rate 53, pulse ox 95% on room air. BUN 21, creatinine 1.62, potassium 4.6 Physical examination: Gen: This is 79-year-old female in no acute distress. VS: reviewed HEENT: Head is atraumatic, normocephalic. Pupils equal, round. Sclerae is anicteric. NECK: Supple. No JVD. LUNGS: Clear to auscultation. No wheezes or rhonchi. No intercostal retract ions. HEART: Regular rate and rhythm. Systolic murmur. ABDOMEN: Soft No tenderness. EXTREMITIES: No pedal edema. No calf tenderness. NEUROLOGICAL: Patient is awake, alert and oriented x3. Assessment: NSTEMI History of coronary artery disease with previous CABG Ischemic cardiomyopathy with previous EF of 33% and improved to 47%, currently 35 to 40% on this hospitalization Paroxysmal atrial fibrillation currently in sinus rhythm SVT requiring cardioversion x 2 on 10/13 Hypertension Hyperlipidemia Acute kidney injury Plan: Resume patient's home cardiac medications with the following changes Patient has been resumed on Eliquis Continue amiodarone drip and plan to transition to oral tomorrow morning at 200 mg twice daily Continue patient on IV fluids 0.9 normal saline at 75 cc/h Further recommendations to follow based upon clinical course Nurse practitioner note has been reviewed, I agree with documented findings and plan of care. Patient was seen and examined. Objective - Vital Signs Vital signs: Vital Signs Temp 98.9 F 10/14/24 04:00 Pulse 74 10/14/24 08:00 Resp 16 10/14/24 08:00 BP 94/52 10/14/24 04:00 Pulse Ox 95 10/14/24 04:00 FiO2 Intake & Output 10/13/24 10/14/24 10/14/24 18:59 06:59 18:59 Intake Total 590 240 Output Total 350 Balance 240 240 Weight 50.5 kg Intake: IV 110 Invasive Line 2 10 Oral 480 240 Output: Urine 350 Other: Voiding Method Bedside Commode Bedside Commode Bedside Commode # Voids 2 1 - Labs CBC & Chem 7: 10/14/24 06:54 10/14/24 06:41 Labs: Abnormal Lab Results - Last 24 Hours (Table) 10/13/24 10/13/24 10/14/24 Range/Units 06:08 17:43 06:41 Sodium 135 L (137-145) mmol/L Carbon Dioxide 20 L (22-30) mmol/L BUN 20 H 21 H (7-17) mg/dL Creatinine 1.38 H 1.62 H (0.52-1.04) mg/dL POC Glucose (mg/dL) 131 H (70-110) mg/dL
[2024-10-14] MEDS: AMIODARONE 450 MG in DEXTROSE 5% IN WATER 250 ML IV SCH (16:31)
--- NOTE | 2024-10-14 19:10 | P.PN ---
Subjective This is a pleasant 79 years old female with past medical history of multiple medical problems including coronary artery disease status post triple bypass surgery about 4 to 5 years ago and chronic atrial fibrillation which is paroxysmal. She was on Eliquis at home. Presents because of chest pain of 1 day duration started a few hours prior to hospitalization in the middle of her chest radiating to the left arm and left shoulder associated with some numbness in the left hand. Pain was 9/10 in severity on admission currently 0/10. No dyspnea or coughing. No other GI/ symptoms. Yesterday she had diarrhea all day but looks. This morning we will continue to monitor. She denies smoking alcohol or illicit drug. She is mildly bradycardic but blood pressure is stable and afebrile Labs showing unremarkable CBC and INR. Creatinine is elevated 1.9 with baseline 1.0-1.5. D-dimer is high 0.77. Troponin is elevated 0.4, 5.3 and 6.7. proBNP is high at 4130 EKG showing sinus bradycardia at [address]-T changes Chest x-ray showing a small right subpulmonic effusion on the lateral view there is rounded density along the posterior lower lung margin this was seen on previously. 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 [employer] recommended medical treatment as she is not a candidate for cardiac intervention. Echocardiogram: Ejection fraction 35 to 40% with moderate to severe left ventricular systolic function impairment with segmental wall motion abnormality. She is currently on aspirin and Eliquis. Overnight rapid response team was called for A-fib and RVR. Patient received 2 cardioversion and started on amiodarone drip with plan to switch to oral amiodarone. Imdur is added. She received some IV fluid. Which is stopped now. Creatinine went up to 1.6. Bladder scan show evidence of urinary retention. Christopher catheter placed and Flomax added Active Medications Generic Name Dose Route Start Last Admin Trade Name Freq PRN Reason Stop Dose Admin Alprazolam 0.25 mg 10/12/24 13:18 Alprazolam 0.25 Mg Tab PO Q6HR PRN Mild Anxiety Alprazolam 0.5 mg 10/12/24 13:18 Alprazolam 0.5 Mg Tab PO Q6HR PRN Moderate Anxiety Amiodarone HCl 200 mg 10/15/24 09:00 Amiodarone 200 Mg Tab PO BID [facility] Amitriptyline HCl 20 mg 10/12/24 21:00 10/13/24 20:18 Amitriptyline Hcl 10 Mg Tab PO 20 mg HS JAZ Administration Apixaban 5 mg 10/14/24 09:00 10/14/24 11:26 Apixaban 5 Mg Tab PO Not Given BID [facility] Protocol Aspirin 81 mg 10/12/24 09:00 10/14/24 11:24 Aspirin 81 Mg PO Not Given DAILY [facility] Atorvastatin Calcium 80 mg 10/11/24 23:15 10/14/24 11:24 Atorvastatin 80 Mg Tab PO Not Given DAILY [facility] Dapagliflozin 5 mg 10/13/24 09:00 10/14/24 11:25 Dapagliflozin Propanediol 5 Mg Tablet PO Not Given DAILY [facility] Ezetimibe 10 mg 10/12/24 21:00 10/13/24 20:19 Ezetimibe 10 Mg Tab PO 10 mg HS [facility]AZ Administration Furosemide 20 mg 10/13/24 09:00 10/14/24 11:25 Furosemide 20 Mg Tab PO Not Given DAILY [facility] Sodium Chloride 1,000 mls @ 75 mls/hr 10/12/24 08:45 10/14/24 16:43 Saline 0.9% IV Not Given .[id number] [facility] Amiodarone HCl 450 mg/ 250 mls @ 16.667 mls/hr 10/14/24 09:45 10/14/24 16:31 Dextrose/Water IV 10/15/24 03:44 0.5 mg/min .Q15H [facility] 16.667 mls/hr Administration Protocol 0.5 MG/MIN Isosorbide Mononitrate 30 mg 10/13/24 10:30 10/14/24 11:26 Isosorbide Mononitrate Er 30 Mg Tab.Er.24h PO Not Given DAILY [facility] Lisinopril 10 mg 10/12/24 09:00 10/14/24 11:24 Lisinopril 10 Mg Tab PO Not Given DAILY [facility] Methimazole 2.5 mg 10/13/24 09:00 10/14/24 11:25 Methimazole 5 Mg Tab PO Not Given DAILY [facility] Metoprolol Tartrate 25 mg 10/12/24 09:00 10/14/24 11:23 Metoprolol Tartrate 25 Mg Tab PO Not Given BID [facility] Miscellaneous Information 1 each 10/13/24 10:14 Rx Info: Iv Contrast Was Given 1 Each Misc MISCELLANE 10/15/24 10:14 DAILY PRN Per Protocol Morphine Sulfate 4 mg 10/11/24 23:11 10/13/24 17:31 Morphine Sulfate 4 Mg/Ml Syringe IV 4 mg Q4HR PRN Administration Chest Pain Nitroglycerin 0.4 mg 10/12/24 13:18 10/13/24 17:42 Nitroglycerin Sl Tabs 0.4 Mg Tab SUBLINGUAL 0.4 mg Q5M PRN Administration Chest Pain Potassium Chloride 20 meq 10/12/24 09:00 10/14/24 11:24 Potassium Chloride Er 20 Meq Tab.Er PO Not Given DAILY [facility] Sertraline HCl 100 mg 10/13/24 09:00 10/14/24 11:26 Sertraline 100 Mg Tab PO Not Given DAILY [facility] Tamsulosin HCl 0.4 mg 10/14/24 19:19 Tamsulosin 0.4 Mg Cap.Er.24h PO PC-SUPPER [facility] Objective - Vital Signs Vital signs: Vital Signs Temp 98.2 F 10/14/24 15:53 Pulse 44 L 10/14/24 15:53 Resp 18 10/14/24 15:53 BP 133/66 10/14/24 15:53 Pulse Ox 99 10/14/24 15:53 FiO2 Intake & Output 10/14/24 10/14/24 10/15/24 06:59 18:59 06:59 Intake Total 1580.004 Output Total 800 Balance 780.004 Weight 50.5 kg Intake: Intake, IV Titration 1100.004 Amount Amiodarone 450 mg In 200.004 Dextrose 5% in Water 250 ml @ 0.5 MG/MIN 16.667 mls/hr IV .Q15H [facility] Rx#: [id number] Sodium Chloride 0.9% 1, 900 000 ml @ 75 mls/hr IV . [id number] [facility] Rx#:[id number] Oral 480 Output: Urine 800 Other: Voiding Method Bedside Commode Toilet Bedside Commode # Voids 1 1 # Bowel Movements 1 - Exam GENERAL: The patient is alert and oriented x3, not in any acute distress. Well developed, well nourished. HEENT: Pupils are round and equally reacting to light. EOMI. No scleral icterus. No conjunctival pallor. Normocephalic, atraumatic. No pharyngeal erythema. No thyromegaly. CARDIOVASCULAR: S1 and S2 present. No murmurs, rubs, or gallops. PULMONARY: Chest is clear to auscultation, no wheezing , no crackles. ABDOMEN: Soft, nontender, nondistended, normoactive bowel sounds. No palpable organomegaly. MUSCULOSKELETAL: No joint swelling or deformity. EXTREMITIES: No cyanosis, clubbing, or pedal edema. NEUROLOGICAL: Gross neurological examination did not reveal any focal deficits. SKIN: No rashes. no petechiae. - Labs CBC & Chem 7: 10/14/24 06:54 10/14/24 06:41 Labs: Abnormal Lab Results - Last 24 Hours (Table) 10/14/24 Range/Units 06:41 BUN 21 H (7-17) mg/dL Creatinine 1.62 H (0.52-1.04) mg/dL Assessment and Plan Assessment: Non-STEMI A-fib and RVR on 10/14. 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 Continue same treatment. Continue with symptomatic treatment. Resume home medication. Monitor labs and vitals. DVT and GI prophylaxis. Further recommendations as per clinical course of the patient DVT prophylaxis: heparin GI Prophylaxis: Pepcid PT/OT: Pending Prognosis is guarded
[2024-10-14] MEDS: TAMSULOSIN 0.4 MG CAP.ER.24H PO SCH (20:07)
[2024-10-14] MEDS: ALPRAZolam 0.5 MG TAB PO PRN (20:12)
[2024-10-14] MEDS: MORPHINE SULFATE 2 MG/ML SYRINGE IVP STA (20:21)
[2024-10-15] MEDS: AMIODARONE 200 MG TAB PO SCH (08:34)
[2024-10-15 08:40] VITALS: RESP 16; TEMP 98.8
[2024-10-15 08:55] LABS: African American GFR (CKD) 40 (>60 ml/min/1.73 sqM); Anion Gap 8 mmol/L; Blood Urea Nitrogen 20 mg/dL (7-17); Calcium 8.7 mg/dL (8.4-10.2); Carbon Dioxide 22 mmol/L (22-30); Chloride 109 mmol/L (98-107); Glucose 100 mg/dL (74-99); Non-African American GFR(CKD) 35 (>60 ml/min/1.73 sqM); Potassium 4.8 mmol/L (3.5-5.1); Sodium 139 mmol/L (137-145)
[2024-10-15] MEDS ORDERED: AMIODARONE 200 MG TAB PO SCH (09:00)
--- NOTE | 2024-10-15 09:50 | P.PN ---
Subjective Progress Note Date: 10/15/24 Reason for Consult (text): NSTEMI History of present illness: This is a 79-year-old female patient of Dr. Hess with past medical history of coronary artery disease status post three-vessel CABG with WESLEY to LAD, radial to OM1 and VG to PLB in 2020, ischemic cardiomyopathy with EF of 47% which is improved, paroxysmal atrial fibrillation hypertension, hyperlipidemia. We have been asked to evaluate the patient for NSTEMI. Patient states that she came into the hospital due to chest pain. She has taken 2 nitroglycerin and the pain is completely gone now. Prior to that all day she had had diarrhea. She states she was walking into the living room and sat down to eat and then the pain started in her chest and she also felt her heart pounding like it was coming out of her chest. She remains pain-free at this time. Patient is seen in the [facility] waiting for bed on the cardiac stepdown unit. She has been started on a heparin drip and Eliquis is on hold. Blood pressure 137/54, heart rate 58, pulse ox 100% on room air. Discussed with patient option of cardiac catheterization and she is agreeable to move forward with this. -EKG: Sinus rhythm with left bundle branch block. -Chest x-ray: Small right subpulmonic effusion not excluded. Posterior area of increased density is stable from 2022. -Echocardiogram performed 10/12/2024 revealed EF 35 to 40%, moderate to severe impaired left ventricular systolic function with segmental wall motion abnormality. Mild to moderate mitral and aortic regurgitation. Mild tricuspid regurgitation. Definity used but an adequate visualization of 2 or more contiguous segments. -Laboratory studies: Troponin 0.497, 5.31, 6.76. Triglycerides 105, cholesterol 121, LDL 56. BUN 23 creatinine 1.93. D-dimer 0.77. -Home cardiac medications: Eliquis 5 mg twice daily, aspirin 81 mg daily, magali rvastatin 40 mg at bedtime, Jardiance 12.5 mg daily, Zetia 10 mg at bedtime, Lasix 20 mg daily, Lopressor 12.5 mg daily, potassium chloride 20 mill equivalents daily, ramipril 2.5 mg daily. -Lexiscan Cardiolite stress test performed in the office on 08/02/2024: Nondiagnostic electrocardiographic stress testing. Abnormal myocardial perfusion imaging with evidence of prior [place] involving the apex, lateral wall and distal inferior wall with segmental wall motion abnormalities on the gated SPECT images. No evidence of significant stress-induced ischemia. 10/14 Patient seen and examined on the cardiac stepdown unit. Yesterday, patient underwent cardiac catheterization with Dr. Hess which revealed calcified coronary arteries, severe stenosis in the left main and occluded left circumflex proximally, patent WESLEY to LAD, patent SVG to the PDA, occluded radial bypass to the OM of unknown duration. Recommendations for medical management as patient is not a good candidate for intervention. Yesterday evening, A-Team for A-fib with RVR in the 150s to 170s. Dr. Nielsen was contacted and recommended cardioversion which was done at the bedside at 75 J and patient converted to sinus rhythm briefly went back to 140 to 150 bpm. Recommendations were then for another cardioversion and start patient on amiodarone bolus and drip. Patient was again cardioverted with 120 J. At the time of our evaluation, patient is in a sinus rhythm. The amiodarone infiltrated in her arm and was restarted in a n ew location. Plan at this time is to continue IV amiodarone and transition to oral tomorrow and continue beta-maría. Blood pressure 129/64, heart rate 53, pulse ox 95% on room air. BUN 21, creatinine 1.62, potassium 4.6 10/15 Patient seen and examined. Patient has done well overnight. She has had no more tachycardic arrhythmias. Blood pressure 136/93, heart rate is 45-51 overnight and pulse ox 96% on room air. She has been transition from IV amiodarone to oral this morning which we will decrease frequency to 200 mg daily. Physical examination: Gen: This is 79-year-old female in no acute distress. VS: reviewed HEENT: Head is atraumatic, normocephalic. Pupils equal, round. Sclerae is anicteric. NECK: Supple. No JVD. LUNGS: Clear to auscultation. No wheezes or rhonchi. No intercostal retractions. HEART: Regular rate and rhythm. Systolic murmur. ABDOMEN: Soft No tenderness. EXTREMITIES: No pedal edema. No calf tenderness. NEUROLOGICAL: Patient is awake, alert and oriented x3. Assessment: NSTEMI History of coronary artery disease with previous CABG Ischemic cardiomyopathy with previous EF of 33% and improved to 47%, currently 35 to 40% on this hospitalization Paroxysmal atrial fibrillation currently in sinus rhythm SVT requiring cardioversion x 2 on 10/13 Hypertension Hyperlipidemia Acute kidney injury Plan: Continue patient's home cardiac medications with the following changes Patient has been resumed on Eliquis Continue amiodarone at 200 mg daily for 1 month only Patient is cleared for discharge from cardiology Nurse practitioner note has been reviewed, I agree with documented findings and plan of care. Patient was seen and examined. Objective - Vital Signs Vital signs: Vital Signs Temp 98.4 F 10/15/24 04:00 Pulse 51 L 10/15/24 04:00 Resp 15 10/15/24 04:00 BP 136/93 10/15/24 04:00 Pulse Ox 96 10/15/24 04:00 FiO2 Intake & Output 10/14/24 10/15/24 10/15/24 18:59 06:59 18:59 Intake Total 1580.004 Output Total 800 Balance 780.004 Weight 50.7 kg Intake: Intake, IV Titration 1100.004 Amount Amiodarone 450 mg In 200.004 Dextrose 5% in Water 250 ml @ 0.5 MG/MIN 16.667 mls/hr IV .Q15H [facility] Rx#: [id number] Sodium Chloride 0.9% 1, 900 000 ml @ 75 mls/hr IV . [id number] [facility] Rx#:[id number] Oral 480 Output: Urine 800 Other: Voiding Method Toilet Toilet Bedside Commode Bedside Commode # Voids 1 1 # Bowel Movements 1 - Labs CBC & Chem 7: 10/14/24 06:54 10/15/24 07:14
[2024-10-15 11:34] VITALS: BP 134/63; PULSE 43
--- NOTE | 2024-10-15 23:25 | P.DS ---
Providers Date of admission: 10/11/24 23:11 Attending physician: Rik Ortiz Consults: 10/11/24 23:11 Consult Physician Routine Consulting Provider: Brian Hess Consult Reason/Comments: NSTEMI Do you want consulting provider notified?: Yes Primary care physician: Brian Cristian [facility] Course: Diagnoses: Non-STEMI A-fib and RVR on 10/14. On Eliquis at home Acute kidney injury on CKD stage III, resolved Coronary artery disease status post triple bypass procedure few years ago Acute urinary retention Hypertension Hyperlipidemia Memory impairment Osteoarthritis History of depression Hospital course: This is a pleasant 79 years old female with past medical history of multiple medical problems including coronary artery disease status post triple bypass surgery about 4 to 5 years ago and chronic atrial fibrillation which is paroxysmal. She was on Eliquis at home. Presents because of chest pain of 1 day duration. Patient was evaluated by restaurant kitchen manager and she underwent cardiac cath because of her chest pain felt secondary to non-STEMI. Cardiac cath showing calcified coronary arteries, severe stenosis in the left main and occluded left circumflex proximally, patent WESLEY to LAD, patent SVG to the PDA, occluded radial bypass to the OM of unknown duration. Recommendations for medical management as patient is not a good candidate for intervention. Next day patient developed A-fib and RVR and she was placed on amiodarone drip and cardioversion x 2 and later then switched to amiodarone 200 mg p.o. daily x 1 month Today she is back to normal self fully awake oriented with no chest pain or dyspnea no other complaint heart rate controlled. Patient eager to go home. Daughter at bedside and wanted to be discharged to Patient was cleared for discharge by restaurant kitchen manager Problems and management plan were discussed with the patient and he verbalized understanding and acceptance Patient was found stable and can be discharged home in guarded prognosis however he needs follow-up as an outpatient. Patient was instructed to follow up with PCP within one week and patient agrees Patient was instructed to follow-up with her restaurant kitchen manager Dr. Hess in 1 week. She agrees. Because of her chronic kidney disease she was instructed to follow-up with dental technician metal Dr. Preciado in 1 week and she agrees thank you any Physical exam Gen: patient is a AAOx3, no distress CVS: S1-S2, RRR, no murmur Lungs: B/L CTA, no wheezing Abdomen: soft, no distention, no tenderness, positive bowel sounds Extremity: no leg edema or induration Time spent more than 35 minutes Patient Condition at Discharge: Serious Plan - Discharge Summary Discharge Rx Participant: Yes New Discharge Prescriptions: New Nitroglycerin Sl Tabs [Nitrostat] 0.4 mg SUBLINGUAL Q5M PRN #20 tab PRN Reason: Chest Pain Amiodarone [Cordarone] 200 mg PO DAILY #30 tab Isosorbide Mononitrate ER [Imdur] 30 mg PO DAILY #30 tab Atorvastatin [Lipitor] 80 mg PO DAILY #30 tab Metoprolol Tartrate [Lopressor] 25 mg PO BID #60 tab lisinopriL [Zestril] 10 mg PO DAILY #30 tab Continue Cholecalciferol [Vitamin D3 (25 Mcg = 1000 Iu)] 25 mcg PO DAILY ALPRAZolam [Xanax] 1 mg PO BID Amitriptyline HCl [Elavil] 20 mg PO HS Sertraline [Zoloft] 100 mg PO DAILY Potassium Chloride ER [K-Dur 20] 20 meq PO DAILY Furosemide [Lasix] 20 mg PO DAILY Fluticasone Nasal Henderson [Flonase Nasal Henderson] 2 spray EA NOSTRIL DAILY ml methIMAzole [Tapazole] 2.5 mg PO DAILY Aspirin 81 mg PO DAILY #30 tab Ezetimibe [Zetia] 10 mg PO HS Apixaban [Eliquis] 5 mg PO BID #60 tab Empagliflozin [Jardiance] 12.5 mg PO DAILY Discontinued Atorvastatin [Lipitor] 40 mg PO HS Metoprolol Tartrate [Lopressor] 12.5 mg PO DAILY ramipriL [Altace] 2.5 mg PO DAILY Discharge Medication List Cholecalciferol [Vitamin D3 (25 Mcg = 1000 Iu)] 25 mcg PO DAILY 01/21/21 [History] ALPRAZolam [Xanax] 1 mg PO BID 03/31/21 [History] Amitriptyline HCl [Elavil] 20 mg PO HS 01/19/23 [History] Ezetimibe [Zetia] 10 mg PO HS 01/19/23 [History] Furosemide [Lasix] 20 mg PO DAILY 01/19/23 [History] Potassium Chloride ER [K-Dur 20] 20 meq PO DAILY 01/19/23 [History] Sertraline [Zoloft] 100 mg PO DAILY 01/19/23 [History] Apixaban [Eliquis] 5 mg PO BID #60 tab 01/23/23 [Rx] Fluticasone Nasal Henderson [Flonase Nasal Henderson] 2 spray EA NOSTRIL DAILY ml 01/25/23 [Rx] Empagliflozin [Jardiance] 12.5 mg PO DAILY 10/11/24 [History] methIMAzole [Tapazole] 2.5 mg PO DAILY 10/11/24 [History] Amiodarone [Cordarone] 200 mg PO DAILY #30 tab 10/15/24 [Rx] Aspirin 81 mg PO DAILY #30 tab 10/15/24 [Rx] Atorvastatin [Lipitor] 80 mg PO DAILY #30 tab 10/15/24 [Rx] Isosorbide Mononitrate ER [Imdur] 30 mg PO DAILY #30 tab 10/15/24 [Rx] Metoprolol Tartrate [Lopressor] 25 mg PO BID #60 tab 10/15/24 [Rx] Nitroglycerin Sl Tabs [Nitrostat] 0.4 mg SUBLINGUAL Q5M PRN #20 tab 10/15/24 [Rx] lisinopriL [Zestril] 10 mg PO DAILY #30 tab 10/15/24 [Rx] Follow up Appointment(s)/Referral(s): Brian Hess MD [STAFF PHYSICIAN] - 1 Week Brian Foster DO [Primary Care Provider] - 1-2 days Jose Manuel Dorantes DO [STAFF PHYSICIAN] - 1 Week Patient Instructions/Handouts: Heart Attack (DC) Activity/Diet/Wound Care/Special Instructions: Heart healthy diet Activity is restricted till you see your doctor Discharge Disposition: HOME SELF-CARE
== END 2024-10-15 12:34 | disposition home or self-care (01) | DRG 281 ==
LOC: EC 20:34 → 3SCARD 23:11
PROVIDERS: ADMIT Hospitalist; ATTEND Hospitalist
PROC: B2181ZZ Fluoroscopy of Left Internal Mammary Bypass Graft using Low Osmolar Contrast (ICD-10-PCS; principal; 2024-10-13 09:00)
PROC: 5A2204Z Restoration of Cardiac Rhythm, Single (ICD-10-PCS; principal; 2024-10-13 09:00)
PROC: B2111ZZ Fluoroscopy of Multiple Coronary Arteries using Low Osmolar Contrast (ICD-10-PCS; principal; 2024-10-13 09:00)
PROC: 4A023N7 Measurement of Cardiac Sampling and Pressure, Left Heart, Percutaneous Approach (ICD-10-PCS; principal; 2024-10-13 09:00)
PROC: B2131ZZ Fluoroscopy of Multiple Coronary Artery Bypass Grafts using Low Osmolar Contrast (ICD-10-PCS; principal; 2024-10-13 09:00)
PROC: 05HC33Z Insertion of Infusion Device into Left Basilic Vein, Percutaneous Approach (ICD-10-PCS; 2024-10-14 10:10)
DX: I25.719 Atherosclerosis of autologous vein coronary artery bypass graft(s) with unspecified angina pectoris (principal); I47.10 Supraventricular tachycardia, unspecified; I21.4 Non-ST elevation (NSTEMI) myocardial infarction; I95.9 Hypotension, unspecified; I44.7 Left bundle-branch block, unspecified; N18.30 Chronic kidney disease, stage 3 unspecified; I12.9 Hypertensive chronic kidney disease with stage 1 through stage 4 chronic kidney disease, or unspecified chronic kidney disease; F32.A Depression, unspecified; I08.0 Rheumatic disorders of both mitral and aortic valves; I48.20 Chronic atrial fibrillation, unspecified; N17.9 Acute kidney failure, unspecified; I48.0 Paroxysmal atrial fibrillation; Z95.1 Presence of aortocoronary bypass graft; I25.10 Atherosclerotic heart disease of native coronary artery without angina pectoris; E78.5 Hyperlipidemia, unspecified; M19.90 Unspecified osteoarthritis, unspecified site; I25.5 Ischemic cardiomyopathy; R00.1 Bradycardia, unspecified; R19.7 Diarrhea, unspecified; R33.9 Retention of urine, unspecified; F41.9 Anxiety disorder, unspecified; I25.2 Old myocardial infarction; Z79.01 Long term (current) use of anticoagulants; Z79.82 Long term (current) use of aspirin; Z79.899 Other long term (current) drug therapy; Z85.828 Personal history of other malignant neoplasm of skin; Z87.891 Personal history of nicotine dependence; Z96.652 Presence of left artificial knee joint; Z90.49 Acquired absence of other specified parts of digestive tract
CPT/HCPCS: 36410; 36415; 51798; 71046; 76937; 80048; 80053; 80061; 81001; 82565; 83690; 83735; 83880; 84484; 85025; 85049; 85379; 85610; 85730; 93005; 93306; 93458; 96365; 96366; 96374; 96375; 96376; 99291